=== PATIENT | female | born 1955 | race Caucasian/White ===

== ENCOUNTER 2023-03-07 09:05 | Outpatient (OUT) | payer MEDICARE, OTHER, SELFPAY ==
--- NOTE | 2023-03-07 09:23 | XR_ITS ---
[address] [address] Patient Name: JACKY COOPER MRN: [id number] date: 1955 Sex: F Assigned Patient Location: [facility] Current Patient Location: [facility] Accession/Order Number: [id number] Exam Date: 03/07/2023 09:40 Report Date: 03/07/2023 10:38 At the request of: NON-STAFF PHYSICIAN Procedure: XR DEXA axial skeleton EXAMINATION: XR DEXA axial skeleton HISTORY: Primary Ovarian Failure E28.39 COMPARISON: No relevant comparison available. TECHNIQUE: Dual-energy X-ray absorptiometry (DXA) was performed. FINDINGS: SPINE ANALYSIS: Average bone mineral density is 1.260 g/cm2. T-score (standard deviation relative to young adult mean): 0.7 . HIP ANALYSIS: Lowest bone mineral density is within the left femoral neck, 0.821 g/cm2. T-score (standard deviation relative to young adult mean): -1.6 . XR/XR DEXA axial skeleton IMPRESSION: [employer] Classification: Osteopenia - Moderate Fracture Risk Electronically authenticated by: LACEY SEVERINO Date: 03/07/2023 10:38
--- NOTE | 2023-03-07 09:24 | MM_ITS ---
Patient Name: JACKY COOPER MR#: [id number] : 1955 Exam Date: 03/07/2023 Ordering Doctor: Non-Staff Physician RADIOLOGY REPORT PROCEDURE: MM TOMOSYNTHESIS SCREENING BI COMPARISON: MG MAMM SCREEN 3D ANAMARIA CAD, 03/04/2022. MG MAMM SCREEN ANAMARIA W CAD, 01/19/2018. MG MAMM ANAMARIA SCRN W CAD DIG, 10/06/2012. INDICATIONS: Screening Calculator Name NCI Breast Cancer Risk Assessment Tool 5 Year Breast Cancer Risk 1.30% Lifetime Breast Cancer Risk 4.60% Personal Breast Cancer No Personal Ovarian Cancer No Treatments resection and chemotherapy Family Cancers Sister with pancreas cancer at age 58; Father with postate cancer at age 74. LOCATION: [facility] BREAST COMPOSITION: Heterogeneously dense,which may obscure small masses. FINDINGS: DIAGNOSTIC CATEGORY 1--NEGATIVE. RIGHT BREAST: No significant suspicious finding. No significant change has occurred. LEFT BREAST: No significant suspicious finding. No significant change has occurred. RECOMMENDATIONS: ROUTINE MAMMOGRAM AND CLINICAL EVALUATION IN 12 MONTHS. PLEASE NOTE: A NORMAL MAMMOGRAM DOES NOT EXCLUDE THE POSSIBILITY OF BREAST CANCER. A CLINICALLY SUSPICIOUS PALPABLE LUMP SHOULD BE BIOPSIED. Dictated by: Ignacio Hanson M.D. on 03/07/2023 at 14:32 Approved by: Ignacio Hanson M.D. on 03/07/2023 at 14:40
== END 2023-03-07 09:06 | disposition home or self-care (01) ==
LOC: MAMMO 09:05
DX: Z12.31 Encounter for screening mammogram for malignant neoplasm of breast (principal); E28.39 Other primary ovarian failure; Z80.8 Family history of malignant neoplasm of other organs or systems; Z80.42 Family history of malignant neoplasm of prostate; M85.80 Other specified disorders of bone density and structure, unspecified site
CPT/HCPCS: 77063; 77067; 77080

== ENCOUNTER 2025-03-11 14:31 | Outpatient (OUT) | payer MEDICARE, OTHER, SELFPAY ==
--- NOTE | 2025-03-11 | MM_ITS ---
Patient Name: JACKY COOPER MR#: [id number] : 1955 Exam Date: 03/11/2025 Ordering Doctor: GRETEL ANDERSON RADIOLOGY REPORT PROCEDURE: MM TOMOSYNTHESIS SCREENING BI COMPARISON: MM TOMOSYNTHESIS SCREENING BI, 03/07/2023. MG MAMM SCREEN 3D ANAMARIA CAD, 03/04/2022. MG MAMM SCREEN ANAMARIA W CAD, 01/19/2018. MG MAMM ANAMARIA SCRN W CAD DIG, 10/06/2012. INDICATIONS: Screening Mammogram Calculator Name NCI Breast Cancer Risk Assessment Tool 5 Year Breast Cancer Risk 1.40% Lifetime Breast Cancer Risk 4.20% Personal Breast Cancer No Personal Ovarian Cancer No Treatments resection and chemotherapy Family Cancers Sister with pancreas cancer at age 58; Father with postate cancer at age 74. LOCATION: [facility] BREAST COMPOSITION: There are scattered areas of fibroglandular density. FINDINGS: DIAGNOSTIC CATEGORY 1--NEGATIVE. RIGHT BREAST: No significant suspicious finding. LEFT BREAST: No significant suspicious finding. RECOMMENDATIONS: ROUTINE MAMMOGRAM AND CLINICAL EVALUATION IN 12 MONTHS. Dictated by: Ruslan Brown DO on 03/11/2025 at 16:19 Approved by: Ruslan Brown DO on 03/11/2025 at 16:23
--- OUTSIDE RECORDS SUMMARY | 2025-03-11 14:34 | XMS_ITS | Continuity of Care Document ---
Author Organization [facility] Address [address] [place] [id number] Phone [phone] Care Team Providers Care Film Inspector Name Role Phone Charisma Shi MD Care Team Information Edi Developer + [phone]
--- OUTSIDE RECORDS SUMMARY | 2025-03-11 14:35 | XMS_ITS ---
Author Organization [facility] Address [address], [address] [place] [address] Care Team Providers Care Registered Nurse Cardiovascular Icu Name Role Phone Stacia Stratton APRN - CHORE WORKER Primary Care Provider + Active Problems ProblemNoted DateDiagnosed DatePAF (paroxysmal atrial fibrillation)04/04/2023 Primary jvpemlsihgdn57/18/7061Njqkulmdleol83/18/2023Obesity, Class II, BMI 35-39.9106/05/2022OVID-1913Paroxysmal ovwmuvlldyy95/17/2023Syncope 04/03/2023History of colon jqegoj8711/08/2019Liver cyst07/25/2019Splenic vein /08/2020Encounter for care related to vascular access port12/25/2018 Malignant neoplasm of sigmoid colon12/22/2018 Current Treatment and Therapy Plans Iron Sucrose (VENOFER) 300 mg then 400 mg* Plan Start Date:09/13/2024 Plan Provider:Raymundo Luque MD Linked Problems Encounter for care related t o vascular access portMalignant neoplasm of sigmoid colon (HCC) Treatment Medications acetaminophen (TYLENOL)diphe nhydrAMINE (BENADRYL)famotidine (PEPCID)iron sucrose (VENOFER)ondansetron (ZOFRAN) Past Treatment and Therapy Plans No past plan information found.
--- OUTSIDE RECORDS SUMMARY | 2025-03-11 14:35 | XMS_ITS | Clinical Summary ---
Author Organization [facility] Address [address], [address] [place] [address] Care Team Providers Care Public Employment Mediator Name Role Phone Stacia Stratton TICKETER - ENGLISH FACULTY MEMBER Primary Care Provider + Allergies Active AllergyReactionsCriticalityNoted DateCommentsNo Known Vpzraktqd60/17/2023 Medications MedicationSigDispense QuantityRefillsLast FilledStart DateEnd DateStatus LORazepam (ATIVAN) 0.5 MG tablet Active aspirin 81 MG EC tablet Take by mouth01/11/2022ctive escitalopram (LEXAPRO) 10 MG tablet Take by mouth daily01/11/2022ctive prednisoLONE acetate (PRED FORTE) 1 % ophthalmic suspension Apply 1 drop to eye 2 times daily01/27/2024ctive atorvastatin (LIPITOR) 20 MG tablet Take 1 tablet by mouth at bedtime 90 tablet ctive apixaban (ELIQUIS) 5 MG TABS tablet Indications:Malignant neoplasm of sigmoid colon (HCC),Paroxysmal tachycardia (HCC)Take 1 tablet by mouth 2 times daily 180 tablet 5Active flecainide (TAMBOCOR) 100 MG tablet Indications:Paroxysmal atrial fibrillation (HCC),Chronic anticoagulation, Malignant neoplasm of sigmoid colon (HCC),Primary hypertension,Dyslipidemia,KEREN (obstructive sleep apnea),Goiter,Abnormal ECGTake 1 tablet by mouth 2 times daily 180 tablet 5Active budesonide (ENTOCORT EC) 3 MG delayed release capsule Take 3 capsules by mouth every qilbvdq84/22/2025Active hydroCHLOROthiazide 12.5 MG capsule Take 1 capsule by mouth daily5Active lisinopril (PRINIVIL;ZESTRIL) 20 MG tablet Take 1 tablet by mouth daily 90 tablet 5Active carvedilol (COREG) 6.25 MG tablet Take 1 tablet by mouth 2 times daily 180 tablet 5Active potassium chloride (KLOR-CON M) 20 MEQ extended release tablet Take 1 tablet by mouth daily 90 tablet 5Active Active Problems ProblemNoted DateDiagnosed DatePAF (paroxysmal atrial fibrillation)04/04/2023 Primary kvwxnvifeiyi29/18/9252Hlhtrhztjzqj21/18/2023Obesity, Class II, BMI 35-39.9106/05/2022OVID-1913Paroxysmal comhawbdarp03/17/2023Syncope 04/03/2023History of colon zkcine3411/08/2019Liver cyst07/25/2019Splenic vein qlyagrxrmc12/08/2020Encounter for care related to vascular access port12/25/2018 Malignant neoplasm of sigmoid colon12/22/2018 Encounters DateTypeDepartmentCare TfzgDaiodpoiyli56/23/2025 1:02 PM EDT - 01/08/2025 11:59 PM EDTHospital Encounter [address] [id number] Paroxysmal atrial fibrillation (HCC); Chronic anticoagulation; Primary hypertension; Dyslipidemia; KEREN (obstructive sleep apnea) Discharge Disposition: Home or Self Care01/08/2025Results Follow-Up [facility] Part [address] [address] Christa Salmeron APRN - ENGLISH FACULTY MEMBER 12/31/2024 2:00 PM EDTOffice Visit [facility] Part [address] [address] Shadi Loyd MD Paroxysmal atrial fibrillation (HCC) (Primary Dx); Chronic anticoagulation; Primary hypertension; Dyslipidemia; KEREN (obstructive sleep apnea)12/09/2024 11:51 AM EDT - 12/09/2024 1:42 PM EDT Emergency [facility] [address] [place] [address] Billy Chatman DO Hypertension, unspecified type (Primary Dx); Hypokalemia Discharge Disposition: Home or Self Care12/09/2024Travelfrom Last 3 Months Family History Medical HistoryRelationNameCommentsAtrial FibrillationBrotherHeart Disease BrotherHeart DiseaseFatherHeart DiseaseMotherRelationNameStatusCommentsBrother AliveDaughter 1AliveDaughter 2AliveFatherDeceasedMotherAliveSisterAliveSonAlive Social History Tobacco UseTypesPacks/DayYears UsedDateSmoking Tobacco: NeverSmokeless Tobacco: Never Tobacco Cessation:Counseling Given: No Alcohol UseStandard Drinks/WeekCommentsNot Currently0 (1 standard drink = 0.6 oz pure alcohol)[facility] UtilitiesAnswerDate RecordedIn the past 12 months has the [employer], gas, oil, or water [employer] threatened to shut off services in your home?No04/03/2023Hunger Vital SignAnswerDate RecordedWithin the past 12 months, you worried that your food would run out before you got the money to buymore. Never true04/03/2023Within the past 12 months, the food you bought just didn't last and you didn't have money to get more.Never true04/03/2023RAPARE - TransportationAnswerDate RecordedIn the past 12 months, has lack of transportation kept you from medical appointments or from getting medications?No 04/03/2023In the past 12 months, has lack of transportation kept you from meetings, work, or from getting things needed for daily living?No04/03/2023 Housing Stability Vital SignAnswerDate RecordedIn the last 12 months, was there a time when you were not able to pay the mortgage or rent on time?No04/03/2023In the last 12 months, how many places have you lived?In the last 12 months, was there a time when you did not have a steady place to sleep or slept in ashelter (including now)?No04/03/2023Interpersonal Safety ([facility] HRSN)Answer Date RecordedHow often does anyone, including family and friends, physically hurt you?How often does anyone, including family and friends, scream or curse at you?Not on file04/03/2023How often does anyone, including family and friends, insult or talk down to you?Not on file04/03/2023How often does anyone, including family and friends, threaten you with harm?Not on file04/03/2023Food InsecurityAnswerDate RecordedWithin the past 12 months, you worried that your food would run out before you got the money to buymore.Within the past 12 months, the food you bought just didn't last and you didn't have money to get more.Interpersonal Safety Domain Source: IP Abuse Screening AnswerDate RecordedRead-Only, Retired: Physical YowckOnxngq53/17/2023Read-Only, Retired: Verbal IflwaDgzfdy40/17/2023Read-Only, Retired: Emotional abuseDenies 04/03/2023Read-Only, Retired: Financial NmldwKpnqgx74/17/2023Read-Only, Retired: Sexual ibejlWyrsgk52/17/2023CommentsUnknownSex and Gender Information ValueDate RecordedSex Assigned at BirthNot on fileLegal YajMqsyvo50/13/2018 11:35 AM EDTGender IdentityNot on fileSexual OrientationNot on file Last Filed Vital Signs Vital SignReadingTime TakenCommentsBlood Ujxzzzwl757/8309 1:55 PM EDT Fbbja650712/31/2024 1:55 PM ZEIWhinjhodrjy80.2 ??C (99 ??F)12/09/2024 12:25 PM EDT Respiratory Ogaq5626 1:55 PM EDTOxygen Hkyvjrqtko05%12/31/2024 1:55 PM EDTInhaled Oxygen Concentration--Qkebjb70.1 kg (214 lb)12/31/2024 1:55 PM EDT Bvnyas853.1 cm (5' 5 )12/31/2024 1:55 PM EDTBody Mass Index35.6109 1:55 PM EDT Plan of Treatment DateTypeDepartmentCare Team (Latest Contact Info)Tmmzgvudfcy38/15/2025 11:20 AM ESTOffice Visit [facility] Part of [address] [address] Shadi Loyd MD [address] [facility] [place] [address] 6 month05/15/2025 1:15 PM ESTOffice Visit [facility] Part of [address] [address] Arpita Singh MD [address] [place], [place] [id number] follow upHealth MaintenanceDue DateLast DoneCommentsDepression Brspfj1304/14/1967 Hepatitis C amwovv5104/14/1973DTaP/Tdap/Td vaccine (1 - Tdap)1974Diabetes lnxdac7704/14/1990Breast cancer fpjapd9504/14/1995FIT/FOBT: Average risk2000 Fecal-DNA (Cologuard): Average risk2000Sigmoidoscopy/CT colonography 2000Shingles vaccine (1 of 2)2005DEXA (modify frequency per FRAX score)2010nnual Wellness Visit (Medicare)03/14/20232462Klgzaf33/12/2025 06/28/2023, 03/15/2022Flu vaccine (#1)5001/12/2023, 02/12/2022, 03/27/2021, Additional history existsCOVID-19 Vaccine ( - 2023- season) 2024GFR test (Diabetes, CKD 3-4, OR last GFR 15-59)/, 12/09/2024, 10/22/2024, Additional history qxuxcdGpyjytjzafg92/15/2028 10/30/2024, 01/15/2020, 01/15/2020Colorectal Cancer Bgbgqi1710/31/2027Respiratory Syncytial Virus (RSV) or age 60 yrs+ (1 - 1-dose 75+ series)2030 Pneumococcal 0-49 years CdsqghdIdbqyjnxndbo13/27/2023, 09/06/2014, 12/25/2009, Additional history existsPneumococcal 50+ years NwudqejLgmbhtnmv80/27/2023, 09/06/2014, 12/25/2009, Additional history existsHepatitis A vaccineAged OutNo longer eligible based on patient's age to complete this topicHepatitis B vaccine Aged OutNo longer eligible based on patient's age to complete this topicHib vaccineAged OutNo longer eligible based on patient's age to complete this topic Meningococcal (ACWY) vaccineAged OutNo longer eligible based on patient's age to complete this topicMeningococcal B vaccineAged OutNo longer eligible based on patient's age to complete this topicPolio vaccineAged OutNo longer eligible based on patient's age to complete this topic Procedures Procedure NamePriorityDate/TimeAssociated DiagnosisCommentsBASIC METABOLIC PANEL Hqvauwx6501/08/2025 1:02 PM EDT Paroxysmal atrial fibrillation (HCC) Chronic anticoagulation Primary hypertension Dyslipidemia KEREN (obstructive sleep apnea) CT HEAD WO MTKMPVQCEIYL08/24/2025 12:30 PM EDT IINRHZYVFWVCY69/24/2025 12:24 PM EDT AWYOCGEHDQLA42/24/2025 12:24 PM EDT COMPREHENSIVE METABOLIC ASYOMPFLY43/24/2025 12:24 PM EDT CBC WITH AUTO HTMEHKPGUBHUCADC48/24/2025 12:24 PM EDT XR CHEST UYCIVLASAXWS60/24/2025 12:22 PM EDT EKG 12-DHWGCIPR28/24/2025 12:22 PM EDT XWZUTJDMDLNXfzwdfi77/15/2025 10:59 AM EDTLIPID IMFTIXchyjhj28/03/2024 8:34 AM EDT from Last 3 Months or Most Recently Relevant to Health Maintenance Results * (ABNORMAL) Basic Metabolic Panel (01/08/2025 1:02 PM EDT)ComponentValueRef RangeTest MethodAnalysis TimePerformed AtPathologist YbqmnbeejFsutpz085355 - 145 mmol/L01/08/2025 1:02 PM [facility] LABPotassium4.0 3.7 - 5.3 mmol/L01/08/2025 1:02 PM [facility] LABChloride [address] - 107 mmol/L01/08/2025 1:02 PM [facility] MDKMV253 20 - 31 mmol/L01/08/2025 1:02 PM [facility] LABAnion Gap 129 - 16 mmol/L01/08/2025 1:02 PM [facility] LABGlucose 132(H)74 - 99 mg/dL01/08/2025 1:02 PM [facility] CGZSSE94 8 - 23 mg/dL01/08/2025 1:02 PM [facility] LABCreatinine 1.3(H)0.50 - 0.90 mg/dL01/08/2025 1:02 PM [facility] Est, Glom Filt Rate45(L)>60 mL/min/1.96m08401/08/2025 1:02 PM [facility] LABComment: ? These results are not intended for use in patients <18 years of age. ? eGFR results are calculated without a race factor using the 2020 CKD-EPI equation. Careful clinical correlation is recommended, particularly when comparing to results calculated using previous equations. The CKD-EPI equation is less accurate in patients with extremes of muscle mass, extra-renal metabolism of creatine, excessive creatine ingestion, or following therapy that affects renal tubular secretion. BUN/Creatinine Cnmtk046 - 1:02 PM [facility] LABCalcium9.28.6 - 10.4 mg/dL01/08/2025 1:02 PM [facility] LABSpecimen (Source)Anatomical Location / LateralityCollection Method / Volume Collection TimeReceived TimeBloodBLOOD SPECIMEN / Zlenchq8401/08/2025 1:02 PM EDT 01/08/2025 1:03 PM EDT Narrative Authorizing ProviderResult TypeResult StatusAli F O Ahmad MDCHEMISTRY ORDERABLES Final ResultPerforming OrganizationAddressCity/State/ZIP CodePhone Number [facility] [address] [place] [address], [facility] [phone] * CT Head W/O Contrast (12/09/2024 12:30 PM EDT)Anatomical RegionLaterality ModalityHeadComputed TomographySpecimen (Source)Anatomical Location / LateralityCollection Method / VolumeCollection TimeReceived Time12/09/2024 12:53 PM EDT Impressions 12/09/2024 12:54 PM EDT 1. ??No evidence of acute intracranial process. 2. ??Findings of presumed mild small vessel ischemic deep white matter disease. 3. ??Small amount of layering fluid within the right maxillary sinus could be a sign of mild acute sinusitis. Narrative 12/09/2024 12:54 PM EDT EXAM: CT Head Without Intravenous Contrast EXAM DATE/TIME: 12/09/2024 12:30 pm CLINICAL HISTORY: ORDERING SYSTEM PROVIDED HISTORY: HEAD PRESSURE, htn ??TECHNOLOGIST PROVIDED HISTORY: ??HEAD PRESSURE, htn ??Decision Support Exception - unselect if not a suspected or confirmed emergency medical condition->Emergency Medical Condition (MA) TECHNIQUE: Axial computed tomography images of the head/brain without intravenous contrast. ??This CT exam was performed using one or more of the following dose reduction techniques: ??automated exposure control, adjustment of the mA and/or kV according to patient size, and/or use of iterative reconstruction technique. COMPARISON: No relevant prior studies available. FINDINGS: Brain: ??No evidence of acute intracranial process. ??No acute ischemia. ??No mass or mass effect. ??No acute intracranial hemorrhage. ??Mild periventricular deep white matter hypodensity consistent with small vessel ischemic deep white matter disease. Ventricles: ??No acute findings. ??No ventriculomegaly. Bones/joints: ??No acute findings. ??No acute fracture. Soft tissues: ??No acute findings. Sinuses: ??Small amount of layering fluid within the right maxillary sinus could be a sign of mild acute sinusitis. Mastoid air cells: ??Unremarkable as visualized. ??No mastoid effusion. Procedure Note Jarred Wen MD - 12/09/2024 EXAM: CT Head Without Intravenous Contrast EXAM DATE/TIME: 12/09/2024 12:30 pm CLINICAL HISTORY: ORDERING SYSTEM PROVIDED HISTORY: HEAD PRESSURE, htn TECHNOLOGISTPROVIDED HISTORY: HEAD PRESSURE, htn Decision Support Exception - unselect if nota suspected or confirmed emergency medical condition->Emergency Medical Condition (MA) TECHNIQUE: Axial computed tomography images of the head/brain without intravenous contrast. This CT exam was performed using one or more of the followingdose reduction techniques: automated exposure control, adjustment of the mA and/or kV according to patient size, and/or use of iterativereconstruction technique. COMPARISON: No relevant prior studies available. FINDINGS: Brain: No evidence of acute intracranial process. No acute ischemia.No mass or mass effect. No acute intracranial hemorrhage. Mildperiventricular deep white matter hypodensity consistent with small vessel ischemic deep white matter disease. Ventricles: No acute findings. No ventriculomegaly. Bones/joints: No acute findings. No acute fracture. Soft tissues: No acute findings. Sinuses: Small amount of layering fluid within the right maxillarysinus could be a sign of mild acute sinusitis. Mastoid air cells: Unremarkable as visualized. No mastoid effusion. IMPRESSION: 1. No evidence of acute intracranial process. 2. Findings of presumed mild small vessel ischemic deep white matterdisease. 3. Small amount of layering fluid within the right maxillary sinus couldbe a sign of mild acute sinusitis. Authorizing ProviderResult TypeResult StatusStephen N Swade DOIMG CT ORDERABLES Final Result * (ABNORMAL) CBC with Auto Differential (12/09/2024 12:24 PM EDT)ComponentValue Ref RangeTest MethodAnalysis TimePerformed AtPathologist SignatureWBC7.43.5 - 11.3 k/uL12/09/2024 12:24 PM [facility] LABRBC4.433.95 - 5.11 m/uL12/09/2024 12:24 PM [facility] UCOEbucjhmuwl61.2 11.9 - 15.1 g/dL12/09/2024 12:24 PM [facility] Bkunufpmir37.836.3 - 47.1 %12/09/2024 12:24 PM [facility] JXVQHA14.182.6 - 102.9 fL12/09/2024 12:24 PM [facility] IZXRIH82.525.2 - 33.5 pg12/09/2024 12:24 PM [facility] ONCBFIZ07.228.4 - 34.8 g/dL12/09/2024 12:24 PM [facility] ZENUSU38.2(H)11.8 - 14.4 %12/09/2024 12:24 PM [facility] CTKSujrkchqk753672 - 453 k/uL12/09/2024 12:24 PM [facility] LABMPV8.88.1 - 13.5 MS12/09/2024 12:24 PM [facility] LABNRBC Automated0.00.0 per 100 WBC12/09/2024 12:24 PM [facility] LABNeutrophils %6536 - 65 %12/09/2024 12:24 PM [facility] LABLymphocytes %2524 - 43 %12/09/2024 12:24 PM [facility] LABMonocytes %63 - 12 %12/09/2024 12:24 PM [facility] LABEosinophils %21 - 4 %12/09/2024 12:24 PM [facility] LABBasophils %10 - 2 %12/09/2024 12:24 PM [facility] LABImmature Granulocytes %1(H)0 %12/09/2024 12:24 PM [facility] LABNeutrophils Absolute4.911.50 - 8.10 k/uL 12/09/2024 12:24 PM [facility] LABLymphocytes Absolute 1.831.10 - 3.70 k/uL12/09/2024 12:24 PM [facility] Monocytes Absolute0.440.10 - 1.20 k/uL12/09/2024 12:24 PM [facility] LABEosinophils Absolute0.130.00 - 0.44 k/uL12/09/2024 12:24 PM [facility] LABBasophils Absolute0.040.00 - 0.20 k/uL 12/09/2024 12:24 PM [facility] LABImmature Granulocytes Absolute0.040.00 - 0.30 k/12/09/2024 12:24 PM [facility] LABSpecimen (Source)Anatomical Location / LateralityCollection Method / VolumeCollection TimeReceived TimeBloodBLOOD SPECIMEN / Anqchrj3212/09/2024 12:24 PM EDT12/09/2024 12:28 PM EDT Narrative Authorizing ProviderResult TypeResult StatusStephen [facility] DOHEMATOLOGY ORDERABLESFinal ResultPerforming OrganizationAddressCity/State/ZIP CodePhone Number [facility] [address] [place] [address] * Troponin (12/09/2024 12:24 PM EDT)ComponentValueRef RangeTest MethodAnalysis TimePerformed AtPathologist SignatureTroponin, High Nppnligwvio165 - 14 ng/L 12/09/2024 12:24 PM [facility] LABComment:High Sensitivity Troponin values cannot be compared with other Troponin methodologies.Specimen (Source)Anatomical Location / LateralityCollection Method / VolumeCollection TimeReceived TimeBloodBLOOD SPECIMEN / Unknown 12/09/2024 12:24 PM EDT12/09/2024 12:28 PM EDT Narrative Authorizing ProviderResult TypeResult StatusStephen N Swade DOCHEMISTRY ORDERABLESFinal ResultPerforming OrganizationAddressCity/State/ZIP CodePhone Number [facility] [address] [place] [address], [facility] [phone] * Magnesium (12/09/2024 12:24 PM EDT)ComponentValueRef RangeTest MethodAnalysis TimePerformed AtPathologist SignatureMagnesium2.11.6 - 2.4 mg/dL12/09/2024 12:24 PM [facility] LABSpecimen (Source)Anatomical Location / LateralityCollection Method / VolumeCollection TimeReceived Time BloodBLOOD SPECIMEN / Yhpfbrc5312/09/2024 12:24 PM EDT12/09/2024 12:28 PM EDT Narrative Authorizing ProviderResult TypeResult StatusStephen N Swade DOCHEMISTRY ORDERABLESFinal ResultPerforming OrganizationAddressCity/State/ZIP CodePhone Number [facility] [address] [phone] * (ABNORMAL) CMP (12/09/2024 12:24 PM EDT)ComponentValueRef RangeTest Method Analysis TimePerformed AtPathologist QgjwyuueoMjigqn134672 - 145 mmol/L 12/09/2024 12:24 PM [facility] LABPotassium3.3(L)3.7 - 5.3 mmol/L12/09/2024 12:24 PM [facility] CFQWgcncdav77916 - 107 mmol/L12/09/2024 12:24 PM [facility] WBWYO12400 - 31 mmol/L12/09/2024 12:24 PM [facility] LABAnion Yno237 - 16 mmol/L12/09/2024 12:24 PM [facility] NZZXblslga110(H) 74 - 99 mg/dL12/09/2024 12:24 PM [facility] IBJEED684 - 23 mg/dL12/09/2024 12:24 PM [facility] LABCreatinine1.0 (H)0.50 - 0.90 mg/dL12/09/2024 12:24 PM [facility] Est, Glom Filt Rate64>60 mL/min/1.32d48712/09/2024 12:24 PM [facility] LABComment: ? These results are not intended for use in patients <18 years of age. ? eGFR results are calculated without a race factor using the 2020 CKD-EPI equation. Careful clinical correlation is recommended, particularly when comparing to results calculated using previous equations. The CKD-EPI equation is less accurate in patients with extremes of muscle mass, extra-renal metabolism of creatine, excessive creatine ingestion, or following therapy that affects renal tubular secretion. BUN/Creatinine Amapc079 - 12:24 PM [facility] LABCalcium8.5(L)8.6 - 10.4 mg/dL12/09/2024 12:24 PM [facility] LABTotal Protein6.76.6 - 8.7 g/dL12/09/2024 12:24 PM [facility] LABAlbumin4.03.5 - 5.2 g/dL12/09/2024 12:24 PM [facility] LABAlbumin/Globulin Ratio1.51.0 - 2.5012/09/2024 12:24 PM EDT [facility] LABTotal Bilirubin0.90.00 - 1.20 mg/dL12/09/2024 12:24 PM [facility] LABAlkaline Dontijcmoro05864 - 104 U/L 12/09/2024 12:24 PM [facility] BCDFKV6014 - 35 U/L 12/09/2024 12:24 PM [facility] HFTHYH8043 - 35 U/L 12/09/2024 12:24 PM [facility] LABSpecimen (Source) Anatomical Location / LateralityCollection Method / VolumeCollection Time Received TimeBloodBLOOD SPECIMEN / Krvsfaw2512/09/2024 12:24 PM EDT12/09/2024 12:28 PM EDT Narrative Authorizing ProviderResult TypeResult StatusStephen N Corneliusade DOCHEMISTRY ORDERABLESFinal ResultPerforming OrganizationAddressCity/State/ZIP CodePhone Number [facility] [address] [place] [address], [facility] [phone] * XR CHEST PORTABLE (12/09/2024 12:22 PM EDT)Anatomical RegionLateralityModality ChestComputed RadiographySpecimen (Source)Anatomical Location / Laterality Collection Method / VolumeCollection TimeReceived Time12/09/2024 12:35 PM EDT Impressions 12/09/2024 12:36 PM EDT 1. No acute process. Narrative 12/09/2024 12:36 PM EDT EXAM: 1 VIEW XRAY OF THE CHEST 12/09/2024 12:22:34 PM COMPARISON: 04/03/2023 CLINICAL HISTORY: Chest Pain. FINDINGS: LUNGS AND PLEURA: No focal pulmonary opacity. No pulmonary edema. No pleural effusion. No pneumothorax. HEART AND MEDIASTINUM: No acute abnormality of the cardiac and mediastinal silhouettes. BONES AND SOFT TISSUES: No acute osseous abnormality. Procedure Note Dale Darnell MD - 12/09/2024 EXAM: 1 VIEW XRAY OF THE CHEST 12/09/2024 12:22:34 PM COMPARISON: 04/03/2023 CLINICAL HISTORY: Chest Pain. FINDINGS: LUNGS AND PLEURA: No focal pulmonary opacity. No pulmonary edema. No pleural effusion. No pneumothorax. HEART AND MEDIASTINUM: No acute abnormality of the cardiac and mediastinal silhouettes. BONES AND SOFT TISSUES: No acute osseous abnormality. IMPRESSION: 1. No acute process. Authorizing ProviderResult TypeResult StatusStephen N [facility] DIAGNOSTIC IMAGING ORDERABLESFinal Result * EKG 12 Lead (12/09/2024 12:22 PM EDT)ComponentValueRef RangeTest Method Analysis TimePerformed AtPathologist SignatureVentricular Rkbx75UPDVNFQ [facility] RADIOLOGYAtrial Kzfi97YZFTNLJ [facility] RADIOLOGYP-R Nounziai846ygEBWJ [facility] QRS Bjjrsxih861ihVYQG [facility] RADIOLOGYQ-T Dlzbrvie938umKRSU [facility] RADIOLOGYQTc Calculation (Bazett)453msMHPN [facility] RADIOLOGYP Smhm31naobkgbFHEK [facility] RADIOLOGYR [place]-41degreesMHPN [facility] RADIOLOGYT Ndbl68ipjrylmLKKU [facility] RADIOLOGYSpecimen (Source)Anatomical Location / LateralityCollection Method / VolumeCollection TimeReceived Time12/09/2024 12:22 PM EDT Narrative [facility] - 12/10/2024 12:58 PM EDT Sinus bradycardia with 1st degree A-V block Left axis deviation Pulmonary disease pattern Minimal voltage criteria for LVH, may be normal variant ( Mickey product ) Abnormal ECG ECG not diagnostic for Acute Coronary Syndrome; consider clinical findings When compared with ECG of 03-Apr-2023 03:47, Sinus rhythm has replaced Atrial fibrillation Confirmed by Ignacio Concepcion ([id number]) on 12/10/2024 12:58:18 PM Procedure Note Ignacio Concepcion MD - 12/10/2024 Sinus bradycardia with 1st degree A-V block Left axis deviation Pulmonary disease pattern Minimal voltage criteria for LVH, may be normal variant ( Mickey product) Abnormal ECG ECG not diagnostic for Acute Coronary Syndrome; consider clinicalfindings When compared with ECG of 03-Apr-2023 03:47, Sinus rhythm has replaced Atrial fibrillation Confirmed by Ignacio Concepcion ([id number]) on 12/10/2024 12:58:18 PM Authorizing ProviderResult TypeResult StatusStepsavannah Chatman DOEC ORDERABLES Final ResultPerforming OrganizationAddressCity/State/ZIP CodePhone Number [facility] * Colonoscopy (10/30/2024 10:59 AM EDT) Narrative Authorizing ProviderResult TypeResult StatusSyed Kaia Harding MDGENEDIANA SURGICAL HISTORYFinal Result * Lipid Panel (06/28/2023 8:34 AM EDT)ComponentValueRef RangeTest MethodAnalysis TimePerformed AtPathologist UfsbwsknvDjetdckswkl4861 - 199 mg/dL06/28/2023 8:34 AM EDTMERCY LABORATORIESComment: Cholesterol Guidelines: <200 Desirable 200-240 ??Borderline >240 Undesirable HDL50>40 mg/dL06/28/2023 8:34 AM EDTMERCY LABORATORIESComment: HDL Guidelines: <40 Undesirable 40-59 ?Borderline >59 Desirable LDL Juirdpzgjmq954 - 100 mg/dL06/28/2023 8:34 AM EDTMERCY LABORATORIESComment: LDL Guidelines: <100 Desirable 100-129 ?? Near to/above Desirable 130-159 ?? Borderline >159 Undesirable Direct (measured) LDL and calculated LDL are not interchangeable tests. Chol/HDL Ratio3. 8:34 AM EDTMERCY NYNYGYSYGIAHLkglwbfvyapka708<150 mg/dL06/28/2023 8:34 AM EDTMERCY LABORATORIESComment: Triglyceride Guidelines: <150 Desirable 150-199 ??Borderline 200-499 ??High >499 Very high Based on AHA Guidelines for fasting triglyceride, January 2012. SYWK26ex/dL06/28/2023 8:34 AM EDTMERCY LABORATORIESSpecimen (Source)Anatomical Location / LateralityCollection Method / VolumeCollection TimeReceived Time 06/28/2023 8:34 AM EDT06/28/2023 8:35 AM EDT Narrative Authorizing ProviderResult TypeResult StatusTammy Viral TICKETER - CNPCHEMISTRY ORDERABLESFinal ResultPerforming OrganizationAddressCity/State/ZIP CodePhone Number [facility] [address] [place] [address], [facility] [phone] [facility] [address] [place], [place] [address] [phone] from Last 3 Months or Most Recently Relevant to Health Maintenance Insurance Advance Directives * Full Code (Latest Code Status on File) Date ActivatedDate MxhbelagmieRmhyltse89/17/2023 8:51 AM04/04/2023 6:13 PM * Full Code Date ActivatedDate InactivatedComments12/26/2018 10:53 AM12/26/2018 1:56 PM NameRelationshipHealthcare Agent RelationshipCommunicationRebecca LuanMariya Primary Decision Maker* * * Care Teams Team MemberRelationshipSpecialtyStart DateEnd Date Stacia Stratton APRN - [employer] [address] [place] [id number] PCP - GeneralNurse Practitioner, [facility]06/28/23
--- OUTSIDE RECORDS SUMMARY | 2025-03-11 14:42 | XMS_ITS | CCD ---
Author Organization [facility] Care Team Providers Care Sliver Cutter Name Role Phone Gilma Her Primary Care Provider GILMA HER Primary Care Unavailable DUY GONZALEZ Referring Unavailable Asif Marr MD Primary Care Provider Gilma HER Primary Care Physician [phone] DR GILMA HER Attending Unavailable ARDEN, DR GILMA Kaye Admitting Unavailable SHAGELUK, DR KELSIE Zepeda Consulting Unavailable ARDEN, DR GILMA Kaye Consulting Unavailable Gilma Her MD Primary Care Provider Gilma Her Primary Care Provider Gilma Her MD Primary Care Provider Gilma Her MD Primary Care Provider Viral GENERAL PURCHASING AGENT - RACQUET MAKER, Stacia Primary Care Provider Viral GENERAL PURCHASING AGENT.RACQUET MAKER, Stacia Primary Care Provider [phone] Stacia Anderson Primary Care Physician Shadi Loyd MD Unavailable Reji Richardson MD Unavailable Viral GENERAL PURCHASING AGENT - RACQUET MAKER, Stacia Primary Care Provider Stacia Anderson LNancy Attending Unavailable Viral, Stacia LNancy Admitting Unavailable Viral GENERAL PURCHASING AGENT - RACQUET MAKER, Stacia Primary Care Provider MISSY ARENASEBGigi Attending Unavailable LUDIVINA PHOEBE Referring Unavailable VIRAL, STACIA Primary Care Unavailable MISSY ARENASEBE Attending Unavailable VIRAL, STACIA Primary Care Unavailable REJI RICHARDSON Attending Unavailable SHADI LOYD Referring Unavailable VRIAL, STACIA Primary Care Unavailable SROUBEK, REJI Referring Unavailable VIRAL, STACIA Primary Care Unavailable LUDIVINA, PHOEBE Attending Unavailable LUDIVINA, PHOEBE Referring Unavailable VIRAL, STACIA Primary Care Unavailable LUDIVINA, PHOEBE Attending Unavailable LUDIVINA, PHOEBE Referring Unavailable VIRAL, STCAIA Primary Care Unavailable ANGELA, MILTON Attending Unavailable ANGELA, MILTON Referring Unavailable VIRAL, STACIA Primary Care Unavailable GOSWAN HERNANDES M Referring Unavailable VIRAL, STACIA Primary Care Unavailable GOSHEALMAWAN M Referring Unavailable VIRAL, STACIA Primary Care Unavailable GOSHEWAN M Attending Unavailable SELF Referring Unavailable VIRAL, STACIA Primary Care Unavailable Viral, Stacia L. Attending Unavailable Mary Garcia Attending Unavailable Mary Garcia Attending Unavailable Mary Garcia Admitting Unavailable GaleaKemi Referring Unavailable Galea, Kemi Kaye Attending Unavailable GaleaKemi Admitting Unavailable Maite Moran MD Attending Provider Viral LABORATORY DIRECTOR-C, Stacia L Primary Care Provider [phone] Meaghan RODRIGUEZ, Thai Wilburn Attending Unavailab le Viral GENERAL PURCHASING AGENT-RACQUET MAKER, Stacia Kaylyn Primary Care Unav ailable [facility] Consulting Unavailable Thai Harding MD Attending Unavailab le Viral GENERAL PURCHASING AGENT-RACQUET MAKER, Stacia Kaylyn Primary Care Unav ailable Barraza GENERAL PURCHASING AGENT-RACQUET MAKER, Lea Moses Attending Unavaila ble Viral GENERAL PURCHASING AGENT-RACQUET MAKER, Stacia Kaylyn Primary Care Unav ailable Viral GENERAL PURCHASING AGENT-RACQUET MAKER, Stacia Kaylyn Primary Care Unav ailable Keyshawn Salinas MD Attending Unavailable Viral GENERAL PURCHASING AGENT-RACQUET MAKER, Stacia Kaylyn Primary Care Unav ailable Thai Harding MD Attending Unavailab Raymundo Post MD Referring Unava ilable Barraza GENERAL PURCHASING AGENT-RACQUET MAKER, Lea Moses Attending Unavaila ble Viral GENERAL PURCHASING AGENT-RACQUET MAKER, Stacia Kaylyn Primary Care Unav ailable Viral, Stacia L Primary Care Unavailable Maite Moran Attending Unavail able Maite Moran Admitting Unavail able VIRAL, STACIA Primary Care Unavailable AHMAD, ALI F O Referring Unavailable AL-BALAJI, ADNAN R Referring Unavailable VIRAL, STACIA Primary Care Unavailable VIRAL, STACIA Primary Care Unavailable AL-BALAJI, ADNAN R Referring Unavailable BILLY CHATMAN Gio Attending Unavailable VIRAL, STACIA Primary Care Unavailable VIRAL, STACIA Primary Care Unavailable AL-BALAJI, ADNAN R Referring Unavailable VIRAL, STACIA Primary Care Unavailable AL-BALAJI, ADNAN R Referring Unavailable VIRAL, STACIA Primary Care Unavailable AHMAD, ALI F O Referring Unavailable AHMAD, ALI F O Attending Unavailable VIRAL, STACIA Primary Care Unavailable AL-BALAJI, ADNAN R Referring Unavailable VIRAL, STACIA Primary Care Unavailable AL-BALAJI, ADNAN R Referring Unavailable Viral, MSN, GENERAL PURCHASING AGENT-RACQUET MAKER Stacia Moses. Attending U navailable Galea, Kemi J Admitting Unavailable Galea, Kemi J Attending Unavailable Galea, Kemi J Referring Unavailable NKANSAH-AMANKRA, MAITE Admitting Unavail able NKANSAH-AMANKRA, MAITE Attending Unavail able NKANSAH-AMANKRA, MAITE Referring Unavail able Galea, Kmei J Admitting Unavailable Galea, Kemi J Attending Unavailable Galea, Kemi J Attending Unavailable NKANSAH-AMANKRA, MAITE Attending Unavail able NKANSAH-AMANKRA, MAITE Referring Unavail able NKANSAH-AMANKRA, MAITE Attending Unavail able NKANSAH-AMANKRA, MAITE Attending Unavail able Viral, MSN, GENERAL PURCHASING AGENT-RACQUET MAKER Stacia L. Attending U navailable Viral, MSN, GENERAL PURCHASING AGENT-RACQUET MAKER Stacia L. Attending U navailable Viral, MSN, GENERAL PURCHASING AGENT-RACQUET MAKER Stacia L. Attending U navailable Viral, MSN, GENERAL PURCHASING AGENT-RACQUET MAKER Stacia L. Attending U navailable Viral, MSN, GENERAL PURCHASING AGENT-RACQUET MAKER Stacia Moses. Attending U navailable Ivral, Stacia L. Attending Unavailable Viral, Stacia L. Attending Unavailable Viral, Stacia L. Attending Unavailable Viral, Stacia L. Attending Unavailable Viral, Stacia L. Attending Unavailable Viral, Stacia L. Attending Unavailable Viral, Stacia L. Admitting Unavailable Viral, Stacia L. Attending Unavailable Viral, Stacia L. Attending Unavailable Kemi Raya Admitting Unavailable Kemi Raya Attending Unavailable Kemi Raya Attending Unavailable Mary Garcia Referring Unavailable Allergies Allergy ClassificationReported Allergen(s)Allergy TypeDate of OnsetReaction(s) Facility (6 sources)No Known Medication Allergies; Translations: [No Known Medication Allergies]Propensity to adverse reactions (disorder)[facility] Repository Medications Current Medications MedicationDrug Class(es)DatesSig (Normalized)Sig (Original)apixaban 5 mg oral tablet (20 sources)Factor Xa InhibitorStart: 61-83-2817pnbc 1 tablet by mouth once dailyApixaban (Eliquis) 5 mg tablet Active 5 MG PO Daily December 05, 2024 12:00am Complies with drug therapyStart: 59-17-6820Okmryqe 5 mg oral tablet 180 EA, 0 Refill(s), TAKE 1 TABLET BY MOUTH TWICE A DAY, Refills(s) 0 Start Date: 01/13/24 Status: Ordered Repeat number: 1aspirin 81 mg delayed release oral tablet (20 sources)Platelet Aggregation Inhibitor, Nonsteroidal Anti-inflammatory Drug Start: 73-42-8692qwnw 1 tablet by mouth once dailyaspirin 81 mg Oral EC Tab 81 mg = 1 tab(s), Oral, Daily, # 30 tab(s), Refills(s) 11 Start Date: 01/11/22 Status: Ordered Quantity: 30.0 Unit: tab(s) Repeat number: 1Start: 01-06-2021 End: 28-02-1829jgkhvon chewable tablet 324 mgComment on above:Take 81 mg by mouth.atorvastatin 20 mg oral tablet (20 sources)HMG-CoA Reductase InhibitorStart: 28-57-0790mqrc 1 tablet by mouth once dailyatorvastatin 20 mg Tab 20 mg = 1 tab(s), Oral, Daily, # 90 tab(s), Refills(s) 3, Pharmacy: [facility]/pharmacy #[id number], 167.6, cm, 03/12/24 13:54:00 EST, Height/Length Dosing, 98.1, kg, 03/12/24 13:54:00 EST,Weight Dosing Start Date: 03/12/24 Status: Ordered Quantity: 90.0 Unit: tab(s) Repeat number: 4Comment on above:Take 20 mg by mouth.benoxinate hydrochloride 4 mg/ml / fluorescein sodium 3 mg/ml ophthalmic solution (18 sources)Diagnostic DyeStart: 10-25-2024 End: 86-73-7153lsrekejwmwk-benoxinate 0.3-0.4 % 1 drop (FLURESS)Start: 10-25-2024 End: drop, BOTH EYES, DIRECTED, Starting on Tue10/25/24 at 1400, Until Tue10/26/24 at 0159, Administer for applanation tonometry. In the event of a Fluress shortage, administer Tia-Fluor 1 drop intoboth eyes as directed for applanation tonometry, OPHT CLINIC MED ORDERSStart: 03-09-2024 End: 27-13-3243lsepmzwffqi-benoxinate 0.3-0.4 % 1 Drop (FLURESS)Start: 11-25-2023 End: 69-11-5134zrxvaeuqyao-benoxinate 0.3-0.4 % 1 Drop (FLURESS)Start: 11-08-2023 End: 15-03-8073fnmrpeobaoe-benoxinate 0.3-0.4 % 1 Drop (FLURESS)Start: 10-26-2023 End: 91-18-6452itnwrogzdcn-benoxinate 0.3-0.4 % 1 Drop (FLURESS)Start: 08-18-2023 End: 33-14-8420tonzjdndapz-benoxinate 0.3-0.4 % 1 Drop (FLURESS)Start: 03-17-2023 End: 30-64-9258vhicanlancb-benoxinate 0.25-0.4 % 1 Drop (FLURESS)Start: 02-17-2022 End: 54-58-3270ipuyjnsxjhn-benoxinate 0.25-0.4 % 1 Drop (FLURESS)Start: 02-15-2022 End: 79-62-0560ahbdgpwonmh-benoxinate 0.25-0.4 % 1 Drop (FLURESS)Start: 02-04-2022 End: 40-99-5042gpucbcyzjqp-benoxinate 0.25-0.4 % 1 Drop (FLURESS)Start: 01-05-2022 End: 33-62-8980aeiwtgfsgic-benoxinate 0.25-0.4 % 1 Drop (FLURESS)Start: 01-04-2022 End: 86-55-6223lxywsorjgyd-benoxinate 0.25-0.4 % 1 Drop (FLURESS)Start: 12-29-2021 End: 01-49-6253arqiowqwdmj-benoxinate 0.25-0.4 % 1 Drop (FLURESS)Start: 11-11-2021 End: 60-38-2503iiiirepbvib-benoxinate 0.25-0.4 % 1 Drop (FLURESS)betamethasone 0.0005 mg/mg topical ointment (20 sources)CorticosteroidStart: 13-59-8382Bbewdxoajwvmx Dipropionate 0.05 % ointment Active 1 APPLIC TOPICAL Twice daily December 05, 2024 12:00am Complies with drug therapyStart: 02-54-7717okbetmksfbhvw dipropionate topical 0.05% ointment 1 honorio, Topical, BID, 15 gm, Refill(s) 1, [facility]/pharmacy #[id number], 165, cm, 11/14/24 11:07:00 EDT, Height/Length Dosing, 97.7, kg, 11/14/24 11:07:00 EDT, We ight Dosing Start Date: 11/14/24 Status: Ordered Quantity: 15.0 Unit: g Repeat number: 2Comment on above:Apply to affected area. prnbudesonide 3 mg delayed release oral capsule (9 sources)CorticosteroidStart: 31-03-8103hmod 3 capsules by mouth once daily in the morningbudesonide 3 mg oral delayed release capsule 9 mg = 3 cap(s), Oral, qAM, Refills(s) 0 Start Date: 12/07/24 Status: Ordered Repeat number: 1calcium chloride 0.0014 meq/ml / potassium chloride 0.004 meq/ml / sodium chloride 0.103 meq/ml / sodium lactate 0.028 meq/ml injectable solution (1 source)Start: 82-64-2972yeqvlhgy ringers infusioncarvedilol 6.25 mg oral tablet (4 sources)alpha-Adrenergic Consuelo, beta-Adrenergic BlockerStart: 01-11-2025 take 1 mg by mouth twice dailycarvedilol 6.25 mg Tab mg tab(s), Oral, BID, Refills(s) 0 Start Date: 01/11/25 Status: Ordered Repeat number: 1Start: 54-95-2328oxip 1 tablet by mouth twice dailycarvedilol (COREG) 6.25 MG tablet Take 1 tablet by mouth 2 times daily 180 tablet 12/31/2024 Activedronedarone 400 mg oral tablet (1 source)AntiarrhythmicStart: 73-39-4874grce 1 tablet by mouth twice daily at mealtimedronedarone hcl (MULTAQ) 400 MG TABS Indications: Paroxysmal atrial fibrillation (HCC) , Abnormal ECG , Dyslipidemia , Primary hypertension , KEREN (obstructive sleep apnea) , Goiter , Chronic anticoagulation Take 1 tablet by mouth 2 times daily (with meals) 180 tablet 3 11/01/2023 Activeescitalopram 10 mg oral tablet (20 sources)Serotonin Reuptake InhibitorStart: 26-22-2041Njlpsbiopnxw Oxalate 10 mg tablet Active 15 MG PO Daily December 05, 2024 12:00am Complies with drug therapyStart: 89-00-6287psjo 1.5 tablets by mouth once dailyescitalopram 10 mg Tab See Instructions, TAKE 1.5 TABLETS BY MOUTH DAILY, # 135 tab(s), Refills(s) 4, Pharmacy: [facility]/pharmacy #[id number], 167.6, cm, 03/12/24 13:54:00 EST, Height/Length Dosing, 98.1, kg, 03/12/24 13:54:00 EST, Weight Dosing Start Date: 05/11/24 Status: Ordered Quantity: 135.0 Unit: tab(s)Repeat number: 5Start: 02-13-2024 take 1.5 tablets by mouth once dailyescitalopram 10 mg Tab See Instructions, TAKE 1.5 TABLETS BY MOUTH DAILY, # 135 tab(s), Refills(s) 0, Pharmacy: [facility] STORE [id number], 167.6, cm, 01/13/24 10:27:00 EDT, Height/Length Dosing, 96.9, kg, 01/12 10:27:00 EDT, Weight Dosing Start Date: 02/13/24 Status: OrderedStart: 94-15-7858idnlgkqijyoo 10 mg Tab 135 EA, 0 Refill(s), TAKE 1.5 TABLETS BY MOUTH DAILY, Refills(s) 0 Start Date: 01/13/24 Status: OrderedStart: 05-25-2023 End: 86-73-7610latfzaneigeo 10 mg Tab 15 mg = 1.5 tab(s), Oral, Daily, X 90 day(s), # 135 tab(s), Refills(s) 1, Pharmacy: [facility]/pharmacy #[id number], 165, cm, 06/29/23 11:20:00 EDT, Height/Length Dosing, 99.4, kg, 06/28/2410:20:00 EDT, Weight Dosing Start Date: 06/29/23 Stop Date: 12/26/23 Status: OrderedStart: 36-95-5661zvqtqwjnxzfb (LEXAPRO) 10 MG tablet Take by mouth daily 01/11/2022 ActiveComment on above:Take 10 mg by mouth once daily.flecainide acetate 100 mg oral tablet (20 sources)AntiarrhythmicStart: 25-72-3921zmmi 1 tablet by mouth every twelve hoursflecainide 100 mg Tab 100 mg = 1 tab(s), Oral, q12hr, Refills(s) 0 Start Date: 11/14/24 Status: Ordered Repeat number: 1Start: 65-88-5997lakw 1 tablet by mouth twice dailyflecainide (TAMBOCOR) 100 MG tablet Indications: Paroxysmal atrial fibrillation (HCC) , Chronic anticoagulation , Malignant neoplasm of sigmoid colon (HCC) , Primary hypertension , Dyslipidemia , KEREN(obstructive sleep apnea) , Goiter , Abnormal ECG Take 1 tablet by mouth 2 times daily 180 tablet ActiveStart: 05-10-0724lwkxuwieam 50 mg Tab 60 EA, 0 Refill(s), TAKE 1 TABLET BY MOUTH TWICE A DAY, Refills(s) 0 Start Date: 01/13/24 Status: Ordered Repeat number: 1fluorouracil (ADRUCIL) 4,680 mg in sodium chloride 0.9 % 250 mL chemo infusion (11 sources)Start: 06-19-2019 End: 78-02-3170lfvoqlscxfpd (ADRUCIL) 4,680 mg in sodium chloride 0.9 % 250 mL chemo infusionStart: 06-05-2019 End: 22-52-2127zopcchpjepme (ADRUCIL) 4,680 mg in sodium chloride 0.9 % 250 mL chemo infusionStart: 05-22-2019 End: 48-14-9677tpekdcxzwjig (ADRUCIL) 4,680 mg in sodium chloride 0.9 % 250 mL chemo infusionStart: 05-08-2019 End: 77-32-8641vkclphicuatc (ADRUCIL) 4,680 mg in sodium chloride 0.9 % 250 mL chemo infusionStart: 04-24-2019 End: 83-90-4364qvnejitnxvjd (ADRUCIL) 4,680 mg in sodium chloride 0.9 % 250 mL chemo infusionStart: 04-09-2019 End: 30-25-5697atgghhoqledq (ADRUCIL) 4,680 mg in sodium chloride 0.9 % 250 mL chemo infusionStart: 03-12-2019 End: 42-80-1687vgrycpabmiwj (ADRUCIL) 4,680 mg in sodium chloride 0.9 % 250 mL chemo infusionStart: 02-20-2019 End: 44-15-5320wvkxfponkpym (ADRUCIL) 4,680 mg in sodium chloride 0.9 % 250 mL chemo infusionStart: 02-06-2019 End: 15-70-8565lwlskxowhose (ADRUCIL) 4,680 mg in sodium chloride 0.9 % 250 mL chemo infusionStart: 01-16-2019 End: 51-53-3197nmmqqzdktoif (ADRUCIL) 4,680 mg in sodium chloride 0.9 % 250 mL chemo infusionStart: 01-02-2019 End: 30-37-7621latexubrevvc (ADRUCIL) 4,680 mg in sodium chloride 0.9 % 250 mL chemo infusiongabapentin 300 mg oral capsule (3 sources)Anti-epileptic AgentStart: 05-14-2020 End: 00-07-9599cvspempebm (NEURONTIN) 300 MG capsule Take 1 capsule by mouth 3 times daily for 180 days. Intended supply: 30 days 90 capsule 5 05/14/2020 Lusdko058 ml glucose 50 mg/ml injection (10 sources)Start: 86-53-3491cwzpidpa 5 % solutionStart: 06-05-2019 End: 90-66-0454ldkdolhd 5 % solutionStart: 05-08-2019 End: 22-47-7214vmjpdpbc 5 % solutionStart: 99-82-4981yjqpzzbz 5 % solutionStart: 24-91-2136zkanufws 5 % solutionStart: 03-12-2019 End: 64-85-7668fihjdcsj 5 % solutionStart: 02-20-2019 End: 55-34-6608xdetleyj 5 % solutionStart: 55-83-5849mxqvaucm 5 % solutionStart: 00-65-0188qocpsvrt 5 % solutionStart: 01-02-2019 End: 95-59-5965tsyxuemk 5 % solution3 ml heparin sodium, porcine 100 unt/ml prefilled syringe (14 sources)Unfractionated Heparin, Anti-coagulantStart: 12-20-2019 End: 07-35-3169asusheu flush 100 UNIT/ML injection 500 UnitsStart: 11-22-2019 End: 47-75-6360inqpqnl flush 100 UNIT/ML injection 500 UnitsStart: 07-19-2019 heparin flush 100 UNIT/ML injection 100 UnitsStart: 06-21-2019 End: 82-53-5856obpdvce flush 100 UNIT/ML injection 500 UnitsStart: 06-07-2019 End: 12-90-1995ghzeqag flush 100 UNIT/ML injection 500 UnitsStart: 05-24-2019 End: 12-47-3523opprymr flush 100 UNIT/ML injection 500 UnitsStart: 05-10-2019 End: 96-86-2365zdflsyg flush 100 UNIT/ML injection 500 UnitsStart: 04-26-2019 End: 04-52-3748lmqgerc flush 100 UNIT/ML injection 500 UnitsStart: 03-14-2019 End: 25-37-2165amqmycq flush 100 UNIT/ML injection 500 UnitsStart: 03-06-2019 End: 12-93-4787oytizuk flush 100 UNIT/ML injection 500 UnitsStart: 02-08-2019 End: 94-64-0945lqrebqh flush 100 UNIT/ML injection 500 UnitsStart: 01-30-2019 End: 79-84-7764uffrngw flush 100 UNIT/ML injection 500 UnitsStart: 01-04-2019 End: 99-18-9112wsyyurr flush 100 UNIT/ML injection 500 UnitsStart: 12-26-2018 End: 83-78-3434nawctqu flush 100 UNIT/ML injectionhydroCHLOROthiazide 12.5 mg oral capsule (2 sources)Thiazide DiureticStart: 41-12-9357dnqi 1 capsule by mouth once daily hydroCHLOROthiazide 12.5 MG capsule Take 1 capsule by mouth daily 12/28/2024 Activeiv contrast (will be provided with radiology test) (1 source)Start: 01-06-2022 End: 31-71-9517ol contrast (will be provided with radiology test) Indications: Optic disc edema , 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 No IV access, insert saline lock prior to the beginning of sedation, infusion, injec tion of imaging exam. Discontinue saline lock post exam. If Pt. has a central line or IVAD, may access for administration according to line specific nursing protocol. Once exam is complete flush lineand de-access according to line specific nursing protocol in the MR contrast administration guidelines link. 1 Each 0 01/06/2022 01/07/2022 ActiveComment on above:MRI Orbits Inject, intravenously, once for 1 dose. No IV access, insert saline lock prior to the beginning of sedation, infusion, injection of imaging exam. Discontinue saline lock post exam. If Pt. has a central line or IVAD, may access for administration according to line specific nursing protocol. Once exam is complete flush line and de-access according to line specific nursing protocol in theMR contrast administration guidelines link.lidocaine 25 mg/ml / prilocaine 25 mg/ml topical cream (20 sources)Antiarrhythmic, Amide Local AnestheticStart: 15-34-0288asqsjxtdq- prilocaine (EMLA) 2.5-2.5 % cream Apply topically to port site and cover with an occlusive dressing 1 hour before port use 1 Tube 2 12/26/2018 Activelisinopril 20 mg oral tablet (20 sources)Angiotensin Converting Enzyme InhibitorStart: 96-12-4362qshn 1 tablet by mouth once dailylisinopril 20 mg Tab 20 mg = 1 tab(s), Oral, Daily, # 90 tab(s), Refills(s) 0, Pharmacy: [facility]/pharmacy #[id number], 165, cm, 12/14/24 10:58:00 EDT, Height/Length Dosing, 97.2, kg, 12/14/24 10:58:00 EDT, Weight Dosing Start Date: 12/14/24 Status: Ordered Quantity: 90.0 Unit: tab(s) Repeat number: 1Start: 44-06-1235jqse 1 tablet by mouth once dailylisinopril 10 mg Tab 10 mg = 1 tab(s), Oral, Daily, # 90 tab(s), Refills(s) 0, other reason (Rx) Sta rt Date: 12/07/24 Status: Ordered Quantity: 90.0 Unit: tab(s) Repeat number: 1 Start: 2023 End: 16-58-4695zgou 1 tablet by mouth once dailylisinopril (PRINIVIL;ZESTRIL) 5 MG tablet Take 1 tablet by mouth daily 90 tablet 3 03/26/2024 ActiveLORazepam 0.5 mg oral tablet (20 sources)BenzodiazepineStart: 01-06-2021 End: 90-45-9564IMItsrhol (ATIVAN) injection 0.5 mgStart: 05-75-1079jyyc 1 tablet by mouth three times daily as needed for anxietyAtivan 0.5 mg Tab 0.5 mg = 1 tab(s), Oral, TID, PRN anxiety, duration 30 days, # 30 tab(s), Refills(s) 0, Pharmacy: [facility]/pharmacy #[id number], 167.6, cm, 07/10/24 11:01:00 EDT, Height/Length Dosing, 100.8, kg, 07/10/24 11:01:00 EDT, Weight Dosing Start Date: 07/10/24 Status: Ordered Quantity: 30.0 Unit: tab(s) Repeat number: 1 Indications: Generalized anxiety disorder;Comment on above:Take 1 tablet by mouth three times daily as needed.meclizine hydrochloride 12.5 mg oral tablet (14 sources)AntiemeticStart: 64-98-0496kppr 1 tablet by mouth three times daily as needed for dizzinessmeclizine 12.5 mg Tab 12.5 mg = 1 tab(s), Oral, TID, PRN for dizziness, # 30 tab(s), Refills(s) 0, Pharmacy: [facility]/pharmacy #[id number], 167.6, cm, 05/11/24 14:28:00 EST, Height/Length Dosing, 99.4, kg, 05/11/24 14:28:00 EST, Weight Dosing Start Date: 05/11/24 Status: Ordered Quantity: 30.0 Unit: tab(s) Repeat number: 1methylPREDNISolone 4 mg oral tablet (1 source)CorticosteroidStart: 04-12-2023 End: 10-71-0384wttoaoODNUVLHofulj (MEDROL, ALDO,) 4 MG tablet Take by mouth. 1 kit 0 04/12/2023 04/18/2023 Vzugoq74 hr metoprolol succinate 25 mg extended release oral tablet (20 sources)beta-Adrenergic BlockerStart: 15-17-3222tccw 1 tablet by mouth every hourmetoprolol succinate ER (TOPROL XL) 25 mg 24 hr tablet Take 1 tablet by mouth every afternoon. 12/28/2023 ActiveStart: 45-25-7232odoa 1 tablet by mouth once dailymetoprolol succinate 25 mg ER Tab 25 mg = 1 tab(s), Oral, Daily, Refills(s) 0 Start Date: 11/07/23 Status: Ordered Repeat number: 1 nirmatrelvir/ritonavir 300/100 (PAXLOVID) 20 x 150 MG & 10 x 100MG TBPK (1 source)Start: 76-05-7638grzvhdtblcko/ritonavir 300/100 (PAXLOVID) 20 x 150 MG & 10 x 100MG TBPK Take 3 tablets (two 150mg nirmatrelvir and one 100 mg ritonavir tablets) by mouth every 12 hours for 5 days. 30 tablet 0 04/05/2023 Activenitrofurantoin, macrocrystals 25 mg / nitrofurantoin, monohydrate 75 mg oral capsule (1 source)Nitrofuran AntibacterialStart: 11-08-2024 End: 59-63-3360gueb 1 capsule by mouth twice dailyMacrobid 100 mg Cap 100 mg = 1 cap(s), Oral, BID, X 7 day(s), # 14 cap(s), Refills(s) 0, Pharmacy: [facility]/pharmacy #[id number], 167.6, cm, 11/07/24 11:48:00 EDT, Height/Length Dosing, 98.8, kg, 11/07/24 11:48:00 EDT, Weight Dosing Start Date: 11/08/24 Stop Date: 11/15/24 Status: Ordered Quantity: 14.0 Unit: cap(s) Repeat number: 1ofloxacin 3 mg/ml ophthalmic solution (12 sources)Quinolone AntimicrobialStart: 96-43-4657tdey 1 drop(s) into the eye(s) four times dailyofloxacin (OCUFLOX) 0.3 % ophthalmic solution Use 1 Drop in the left eye four times daily. 5 mL 10/26/2023 Activeoseltamivir 75 mg oral capsule (2 sources)Neuraminidase InhibitorStart: 02-02-2019 End: 90-56-2814olnp 1 capsule by mouth once dailyoseltamivir (TAMIFLU) 75 MG capsule Take 1 capsule by mouth daily for 7 days 7 capsule 0 02/02/2019 02/09/2019 ActiveoxyCODONE hydrochloride 5 mg oral capsule (1 source)Opioid AgonistStart: 68-22-1121juqj 1 capsule by mouth every eight hours as needed for painPARoxetine hydrochloride 20 mg oral tablet (20 sources)Serotonin Reuptake InhibitorStart: 86-29-1779utqk 1 tablet by mouth once dailyPARoxetine (PAXIL) 20 MG tablet TAKE 1 TABLET BY MOUTH EVERY DAY 0 11/29/2018 Activephenazopyridine hydrochloride 100 mg oral tablet (1 source)Start: 08-05-0480rrhh 1 tablet by mouth three times daily as needed for painphenylephrine hydrochloride 25 mg/ml ophthalmic solution (20 sources)alpha-1 Adrenergic AgonistStart: 10-25-2024 End: 40-39-4931YDTEAPhhyyxrg 2.5 % 1 drop (AK-DILATE, MARY-SYNEPHRINE)Start: 10-25-2024 End: drop, BOTH EYES, DIRECTED, Starting on Tue10/25/24 at 1400, Until Tue10/26/24 at 0159, Administer for dilation PROTECT FROM LIGHT, OPHT CLINIC MED ORDERSStart: 03-09-2024 End: 31-06-6225CQDEUXditidyw 2.5 % 1 Drop (AK-DILATE, MARY-SYNEPHRINE)Start: 03-09-2024 End: Drop, BOTH EYES, DIRECTED, Starting on Tue03/09/24 at 1030, Until Tue03/09/24 at 2229, Administer for dilation PROTECT FROM LIGHT, OPHT CLINIC MED ORDERSStart: 01-27-2024 End: 39-87-9059TBBGQNtjaxuwl 2.5 % 1 Drop (AK-DILATE, MARY-SYNEPHRINE)Start: 01-27-2024 End: Drop, BOTH EYES, DIRECTED, Starting on Tue01/27/24 at 1000, Until Tue01/27/24 at 2159, Administer for dilation PROTECT FROM LIGHT, OPHT CLINIC MED ORDERSStart: 11-25-2023 End: 71-71-0168IDBVUXqutepcr 2.5 % 1 Drop (AK-DILATE, MARY-SYNEPHRINE)Start: 11-08-2023 End: 43-06-7200TLHZIZxlgjsli 2.5 % 1 Drop (AK-DILATE, MARY-SYNEPHRINE)Start: 10-26-2023 End: 29-26-6790RNKINFwaftigg 2.5 % 1 Drop (AK-DILATE, MARY-SYNEPHRINE)Start: 08-18-2023 End: 88-27-7385BOJTALqqgfmkm 2.5 % 1 Drop (AK-DILATE, MARY-SYNEPHRINE)Start: 03-17-2023 End: 19-93-5965WDYGMCyouovya 2.5 % 1 Drop (AK-DILATE, MARY-SYNEPHRINE)Start: 07-06-2022 End: 38-21-2903PSOZZBsrmwwen 2.5 % 1 Drop (AK-DILATE, MARY-SYNEPHRINE)Start: 02-17-2022 End: 52-62-1962XMRCWXmilrpap 2.5 % 1 Drop (AK-DILATE, MARY-SYNEPHRINE)Start: 02-15-2022 End: 33-30-8283GYCEFRjhyrikr 2.5 % 1 Drop (AK-DILATE, MARY-SYNEPHRINE)Start: 01-05-2022 End: 19-82-6694JGUDZYibakpdw 2.5 % 1 Drop (AK-DILATE, MARY-SYNEPHRINE)Start: 01-04-2022 End: 26-74-3172FESTFZsdwhsdo 2.5 % 1 Drop (AK-DILATE, MARY-SYNEPHRINE)Start: 12-29-2021 End: 56-74-1944IHIJBVyeweknm 2.5 % 1 Drop (AK-DILATE, MARY-SYNEPHRINE)Start: 11-11-2021 End: 49-16-9164DOYZBHjcyksdo 2.5 % 1 Drop (AK-DILATE, MARY-SYNEPHRINE) prednisoLONE acetate 10 mg/ml ophthalmic suspension (20 sources)CorticosteroidStart: 96-17-6791zfhfspjlCOUZ acetate (PRED FORTE) 1 % ophthalmic suspension Apply 1 drop to eye 2 times daily 01/27/2024 ActiveStart: 07-27-2023 End: 28-93-9872zrkhgwdaVIUV acetate (PRED FORTE) 1 % ophthalmic suspension Use 1 Drop in the left eye four times daily. 10 mL 10/26/2023 ActiveComment on above: Use 1 Drop in the left eye four times daily.prochlorperazine 10 mg oral tablet (20 sources)PhenothiazineStart: 12-79-0739kuix 1 tablet by mouth every six hours as needed for nauseaprochlorperazine (COMPAZINE) 10 MG tablet Take 1 tablet by mouth every 6 hours as needed (nausea) 80 tablet 1 04/16/2019 ActiveStart: 35-51-1010lcrv 1 tablet by mouth every eight hours as needed for nausea prochlorperazine (COMPAZINE) 10 MG tablet TAKE 1 TABLET BY MOUTH EVERY 8 HOURS NEEDED FOR HPIQUU00 tablet 1 02/14/2019 ActiveStart: 17-40-5490vgre 1 tablet by mouth every eight hours as needed for nauseaprochlorperazine (COMPAZINE) 10 MG tablet Take 1 tablet by mouth every 8 hours as needed (nausea) 80 tablet 1 12/22/2018 Activeproparacaine hydrochloride 5 mg/ml ophthalmic solution (20 sources)Local AnestheticStart: 10-25-2024 End: 63-83-8619juezfrzfjbba 0.5 % 1 drop (ALCAINE)Start: 03-09-2024 End: 23-02-0683hkwehrpnnmzq 0.5 % 1 Drop (ALCAINE)Start: 03-09-2024 End: Drop, BOTH EYES, DIRECTED, Starting on Tue03/09/24 at 1030, Until Tue03/09/24 at 2229, Administer for pneumo tonometry, tonopen tonometry, or pachymetry. In the event of a proparacaine shortage, administer tetracaine 0.5% ophthalmic drops 1 drop in both eyes as directed for pneumo tonometry, tonopen tonometry, or pachymetry, [facility] MED ORDERSStart: 01-27-2024 End: 29-00-4906xuaubploberi 0.5 % 1 Drop (ALCAINE)Start: 01-27-2024 End: Drop, BOTH EYES, DIRECTED, Starting on Tue01/27/24 at 1000, Until Tue01/27/24 at 2159, Administer for pneumo tonometry, tonopen tonometry, or pachymetry. In the event of a proparacaine shortage, administer tetracaine 0.5% ophthalmic drops 1 drop in the left eye as directed for pneumo tonometry, tonopen tonometry, or pachymetry, [facility] MED ORDERSStart: 11-25-2023 End: 70-68-0193voaybiooqbvi 0.5 % 1 Drop (ALCAINE)Start: 11-08-2023 End: 84-70-6220ctahbjcaojxd 0.5 % 1 Drop (ALCAINE)Start: 08-18-2023 End: 87-64-7985fbabemcqjhwo 0.5 % 1 Drop (ALCAINE)Start: 03-17-2023 End: 44-96-6910uqqbfvjgbfez 0.5 % 1 Drop (ALCAINE)Start: 07-06-2022 End: 98-96-1696ricvnweyssrv 0.5 % 1 Drop (ALCAINE)Start: 02-17-2022 End: 47-26-1940qwbclalyrvpx 0.5 % 1 Drop (ALCAINE)Start: 02-15-2022 End: 53-78-4207newxfzhmbwmy 0.5 % 1 Drop (ALCAINE)Start: 02-04-2022 End: 74-93-4216yzbhcifirmul 0.5 % 1 Drop (ALCAINE)Start: 01-05-2022 End: 15-84-9618zsthiytelodm 0.5 % 1 Drop (ALCAINE)Start: 01-04-2022 End: 94-15-2370dobohcmjrooa 0.5 % 1 Drop (ALCAINE)Start: 12-29-2021 End: 13-44-4604djelzbtnbpid 0.5 % 1 Drop (ALCAINE)Start: 11-11-2021 End: 97-01-4465fvmleubbtkol 0.5 % 1 Drop (ALCAINE)psyllium 3400 mg powder for oral suspension (20 sources)psyllium (KONSYL) 28.3 % PACK Take 1 packet by mouth as needed for Constipation 0 Julcgx24 ml sodium chloride 9 mg/ml injection (20 sources)Start: 10-11-2024 End: 88-74-5976dudf 100 mL intravenously every hour as needed, then take 20 mL intravenously every hour as needed5-250 mL/hr, IntraVENous, PRN, If patient receiving piggyback infusions and maintenance fluids are not ordered OR KVO fluids to protect IV site/ prevent frequent line interruptions/ long duration, Starting on Kyara 10/11/24 at 1101, For 18 hours, For piggyback infusion, administer at same rate as piggyback for a total of 25 mL. Enter 25 mL into dose field and piggyback rate into rate field of order.If piggyback is infusing at a rate less than 100 mL/hr, enter 25 mL into dose field and 100 mL/hr into rate field of order. For KVO fluids, enter rate of 20 mL/hr or less into rate field of order.Start: 09-27-2024 End: 32-63-4954kkoi 100 mL intravenously every hour as needed, then take 20 mL intravenously every hour as needed5-250 mL/hr, IntraVENous, PRN, If patient receiving piggyback infusions and maintenance fluids are not ordered OR KVO fluids to protect IV site/ prevent frequent line interruptions/ long duration, Starting on Kyara 09/27/24 at 1115, For 18 hours, For piggyback infusion, administer at same rate as piggyback for a total of 25 mL. Enter 25 mL into dose field and piggyback rate into rate field of order.If piggyback is infusing at a rate less than 100 mL/hr, enter 25 mL into dose field and 100 mL/hr into rate field of order. For KVO fluids, enter rate of 20 mL/hr or less into rate field of order.Start: 09-13-2024 End: 66-76-7861efik 100 mL intravenously every hour as needed, then take 20 mL intravenously every hour as needed5-250 mL/hr, IntraVENous, PRN, If patient receiving piggyback infusions and maintenance fluids are not ordered OR KVO fluids to protect IV site/ prevent frequent line interruptions/ long duration, Starting on Tue09/13/24 at 0909, For 18 hours, For piggyback infusion, administer at same rate as piggyback for a total of 25 mL. Enter 25 mL into dose field and piggyback rate into rate field of order.If piggyback is infusing at a rate less than 100 mL/hr, enter 25 mL into dose field and 100 mL/hr into rate field of order. For KVO fluids, enter rate of 20 mL/hr or less into rate field of order.Start: 09-13-2024 End: -40 mL, IntraVENous, PRN, Starting on Kyara 09/13/24 at 0909, Until Tue09/14/24 at 0308, Line Care, If following IV push medication, administer flush at same rate as the IV push. Flush volume is determined by type of infusion therapy being given. For non-viscous solutions use: Peripheral IV = 5 mL Midline or Central Line = 10 mL/lumen For viscous solutions (i.e. blood components, parenteral nutrition, contrast media, or after obtaining blood sample) use: Peripheral IV = 10 mL Midline or Central Line = 20 mL/lumenStart: 01-06-2021 End: .9 % sodium chloride bolusStart: 12-20-2019 End: 34-40-9859jcxzzp chloride flush 0.9 % injection 10 mLStart: 11-22-2019 End: 25-39-2484yldjkg chloride flush 0.9 % injection 10 mLStart: 10-25-2019 End: 63-02-4764ytqdmk chloride flush 0.9 % injection 10 mLStart: 07-19-2019 End: 67-48-3087gfbthj chloride flush 0.9 % injection 10 mLStart: 06-21-2019 End: 91-12-7524zlrewa chloride flush 0.9 % injection 10 mLStart: 06-19-2019 End: 11-42-5224yzexfu chloride flush 0.9 % injection 10 mLStart: 06-07-2019 End: 04-95-5431wbevjf chloride flush 0.9 % injection 10 mLStart: 06-05-2019 End: 36-79-8481uhoszj chloride flush 0.9 % injection 10 mLStart: 05-24-2019 End: 48-16-0244ikizjc chloride flush 0.9 % injection 10 mLStart: 05-22-2019 End: 05-22-20190.9 % sodium chloride infusionStart: 05-22-2019 End: 39-53-1839myxmmz chloride flush 0.9 % injection 10 mLStart: 05-10-2019 End: 34-46-3144wllhxt chloride flush 0.9 % injection 10 mLStart: 05-08-2019 End: 83-16-9608rdkscu chloride flush 0.9 % injection 10 mLStart: 04-26-2019 End: 48-59-5460eiuvpn chloride flush 0.9 % injection 10 mLStart: 04-24-2019 End: 40-28-4098mxhmiy chloride flush 0.9 % injection 10 mLStart: 04-09-2019 End: 38-51-1534cjnbkf chloride flush 0.9 % injection 10 mLStart: 03-14-2019 End: 05-41-2947hxycgo chloride flush 0.9 % injection 10 mLStart: 03-12-2019 End: 34-09-1296tabrnx chloride flush 0.9 % injection 10 mLStart: 03-06-2019 End: 59-43-5494wvwqzi chloride flush 0.9 % injection 10 mLStart: 02-20-2019 End: 67-14-9834jukjxe chloride flush 0.9 % injection 10 mLStart: 02-08-2019 End: 12-71-8614xohvsr chloride flush 0.9 % injection 10 mLStart: 02-06-2019 End: 20-13-0456ktkkyi chloride flush 0.9 % injection 10 mLStart: 01-30-2019 End: 67-07-7936uixitj chloride flush 0.9 % injection 10 mLStart: 01-16-2019 End: 31-91-8559ycfcsz chloride flush 0.9 % injection 10 mLStart: 01-04-2019 End: 94-85-7992dxodtf chloride flush 0.9 % injection 10 mLStart: 01-02-2019 End: 24-55-1081xhquky chloride flush 0.9 % injection 10 mLStart: .9 % sodium chloride infusionsulfamethoxazole 800 mg / trimethoprim 160 mg oral tablet (3 sources)Dihydrofolate Reductase Inhibitor Antibacterial, Sulfonamide AntimicrobialStart: 11-07-2024 End: 03-27-1561Nxwfeyu D.S. 800 mg-160 mg Tab 1 tab(s), Oral, BID for 7 day(s), 14 tab(s), Refill(s) 0, [facility]/pharmacy #[id number], 167.6, cm, 11/07/24 11:48:00 EDT, Height/Length Dosing, 98.8, kg, 11/07/24 11:48:00 EDT, Weight Dosing Start Date: 11/07/24 Stop Date: 11/14/24 Status: Ordered Quantity: 14.0 Unit: tab(s) Repeat number: 1Start: 06-11-2024 End: 63-17-5456Erjbftr D.S. 800 mg-160 mg Tab 1 tab(s), Oral, q12hr for 5 day(s), 10 tab(s), Refill(s) 0, [facility]/pharmacy #[id number], 167.6, cm, 06/11/24 11:26:00 EST, Height/Length Dosing, 101.8, kg, 06/11/24 11:26:00 EST, Weight Dosing Start Date: 06/11/24 Stop Date: 06/16/24 Status: Orderedtamsulosin hydrochloride 0.4 mg oral capsule (1 source)alpha-Adrenergic BlockerStart: 29-75-7563mpiw 1 capsule by mouth once dailytraMADol hydrochloride 50 mg oral tablet (3 sources)Opioid AgonistStart: 04-12-2023 End: 34-94-6779nfel 1 tablet by mouth every six hourstraMADOL 50 mg Tab 50 mg, Oral, q6hr, Refills(s) 0 Start Date: 04/14/23 Status: Orderedtropicamide 10 mg/ml ophthalmic solution (20 sources)AnticholinergicStart: 10-25-2024 End: 36-15-1782ezdnnnizlns 1 % 1 drop (MYDRIACYL)Start: 10-25-2024 End: drop, BOTH EYES, DIRECTED, Starting on Tue10/25/24 at 1400, Until Tue10/26/24 at 0159, Administer for dilation, [facility]DERSStart: 03-09-2024 End: 23-34-7852vijoyqofavd 1 % 1 Drop (MYDRIACYL)Start: 03-09-2024 End: Drop, BOTH EYES, DIRECTED, Starting on Tue03/09/24 at 1030, Until Tue03/09/24 at 2229, Administer for dilation, [facility] Start: 01-27-2024 End: 33-05-4280enrkemnxhhn 1 % 1 Drop (MYDRIACYL)Start: 01-27-2024 End: Drop, BOTH EYES, DIRECTED, Starting on Tue01/27/24 at 1000, Until Tue01/27/24 at 2159, Administer for dilation, [facility] Start: 11-25-2023 End: 43-69-1188vsoqiracehb 1 % 1 Drop (MYDRIACYL)Start: 11-08-2023 End: 72-53-8642kfbmkehcjzj 1 % 1 Drop (MYDRIACYL)Start: 10-26-2023 End: 44-44-5663wpfdhyolwtg 1 % 1 Drop (MYDRIACYL)Start: 08-18-2023 End: 28-52-9678rbmwfqurhqp 1 % 1 Drop (MYDRIACYL)Start: 03-17-2023 End: 75-10-2196qyyjicrygik 1 % 1 Drop (MYDRIACYL)Start: 07-06-2022 End: 10-99-5034qlvsydjooya 1 % 1 Drop (MYDRIACYL)Start: 02-17-2022 End: 93-03-7954sgdccbtimnp 1 % 1 Drop (MYDRIACYL)Start: 02-15-2022 End: 89-78-1975nnmoknxkqvp 1 % 1 Drop (MYDRIACYL)Start: 02-04-2022 End: 68-56-9597aewklgiqlcx 1 % 1 Drop (MYDRIACYL)Start: 01-05-2022 End: 84-73-0602rqkdqobmkur 1 % 1 Drop (MYDRIACYL)Start: 01-04-2022 End: 59-19-8678ysolkxssaog 1 % 1 Drop (MYDRIACYL)Start: 12-29-2021 End: 89-68-6303sjseeyfwfbj 1 % 1 Drop (MYDRIACYL)Start: 11-11-2021 End: 05-40-9196twkesuzqjbr 1 % 1 Drop (MYDRIACYL) Completed/Discontinued Medications MedicationDrug Class(es)DatesSig (Normalized)Sig (Original)acetaminophen 325 mg oral tablet (11 sources)Start: 12-09-2024 End: 12-97-5678rgzr 4000 mg by mouth every twenty-four aqyow678 mg, Oral, NOW, 1 dose, On 12/09/24 at 1315, Maximum dose of acetaminophen is 4000 mg from all sources in 24 hours.Start: 95-58-8250xujjqycquienx (TYLENOL) 325 MG tablet Take 2 tablets by mouth 08/12/2020 Activealteplase (CATHFLO) injection 2 mg (1 source)Start: 05-08-2019 End: 00-05-2569jtpbqiros (CATHFLO) injection 2 mgAtropine (3 sources)Anticholinergic, Cholinergic Muscarinic Antagonist End: 16-63-7370irbd 1 drop(s) into the eye(s) once daily at bedtimeatropine sulfate (ATROPINE OPHTHALMIC) Use 1 Drop in the left eye daily at bedtime. 01/02/2024 Discontinuedtake 1 drop(s) into the eye(s) once daily at bedtime atropine sulfate (ATROPINE OPHTHALMIC) Use 1 Drop in the left eye daily at bedtime. Activetake 1 drop(s) into the eye(s) once daily at bedtimeatropine sulfate (ATROPINE OPHTHALMIC) Use 1 Drop in the left eye daily at bedtime. 0 Active3 ml bupivacaine hydrochloride 5 mg/ml / EPINEPHrine 0.005 mg/ml injection (1 source)alpha-Adrenergic Agonist, beta-Adrenergic Agonist, Catecholamine, Amide Local AnestheticStart: 02-19-2020 End: 85-11-6908sdrrsjrmzns-EPINEPHrine PF (MARCAINE-w/EPINEPHRINE) 0.5% - 1:324304 injectionceFAZolin (ANCEF) 2 g in dextrose 5 % 100 mL IVPB (1 source)Start: 12-26-2018 End: 39-75-5698wpPBTtarv (ANCEF) 2 g in dextrose 5 % 100 mL IVPBcyclopentolate hydrochloride 10 mg/ml ophthalmic solution (9 sources)Start: 12-18-2020 End: 92-44-2084ukkh 1 drop(s) into the eye(s) twice dailycyclopentolate (CYCLOGYL) 1 % ophthalmic solution Use 1 Drop in the right eye twice daily. 10 mL 0 12/18/2020 02/17/2022 Discontinued (Other)Comment on above:Use 1 Drop in the right eye twice daily.dexamethasone (DECADRON) 12 mg in sodium chloride 0.9 % IVPB (11 sources)Start: 06-19-2019 End: 73-50-6088csvmhzgintynl (DECADRON) 12 mg in sodium chloride 0.9 % IVPB Start: 06-05-2019 End: 68-27-3666zifmfdilwewwn (DECADRON) 12 mg in sodium chloride 0.9 % IVPB Start: 05-22-2019 End: 56-69-5077aimpfaqodtnnw (DECADRON) 12 mg in sodium chloride 0.9 % IVPB Start: 05-08-2019 End: 63-84-6215uenwsigvjmyhn (DECADRON) 12 mg in sodium chloride 0.9 % IVPB Start: 04-24-2019 End: 92-10-7167gwjvnbwvdjztz (DECADRON) 12 mg in sodium chloride 0.9 % IVPB Start: 04-09-2019 End: 63-98-9508mtkxtiznlgeir (DECADRON) 12 mg in sodium chloride 0.9 % IVPB Start: 03-12-2019 End: 97-37-8290caroezzngeypl (DECADRON) 12 mg in sodium chloride 0.9 % IVPB Start: 02-20-2019 End: 41-43-8681iemyqpjzumyxh (DECADRON) 12 mg in sodium chloride 0.9 % IVPB Start: 02-06-2019 End: 51-71-6730ryeukmdvzhwfu (DECADRON) 12 mg in sodium chloride 0.9 % IVPB Start: 01-16-2019 End: 07-21-4714ckcsfzoquxrvj (DECADRON) 12 mg in sodium chloride 0.9 % IVPB Start: 01-02-2019 End: 84-81-6083kwiyofbdlbksk (DECADRON) 12 mg in sodium chloride 0.9 % IVPB dexamethasone 1 mg/ml / tobramycin 3 mg/ml ophthalmic suspension (7 sources)Aminoglycoside Antibacterial, CorticosteroidStart: 12-18-2020 End: 24-17-1739efiv 1 drop(s) into the eye(s) four times dailytobramycin- dexAMETHasone (TOBRADEX) ophthalmic suspension Use 1 Drop in the right eye four times daily. 10 mL 0 12/18/2020 02/17/2022 DiscontinuedComment on above:Use 1 Drop in the right eye four times daily.1 ml diphenhydrAMINE hydrochloride 50 mg/ml cartridge (4 sources)Histamine-1 Receptor AntagonistStart: 06-19-2019 End: 32-02-5644uomlqlksvbTPEQX (BENADRYL) injection 25 mgStart: 06-05-2019 End: 68-14-6531cqfzcvqpokBELWH (BENADRYL) injection 25 mgStart: 05-22-2019 End: 73-23-9099dnksucohzgPZVUQ (BENADRYL) injection 25 mgStart: 05-08-2019 End: 06-26-5663siautysbcnZWAVJ (BENADRYL) injection 25 mgEPINEPHrine / Lidocaine (2 sources)Antiarrhythmic, alpha-Adrenergic Agonist, beta-Adrenergic Agonist, Catecholamine, Amide Local AnestheticStart: 12-26-2018 End: 18-25-5321xnziimyef-EPINEPHrine 1 percent-1:453881 injectionStart: 12-26-2018 End: 76-62-7322syqgjnzuc-EPINEPHrine 1 percent-1:676643 injectionerythromycin 0.005 mg/mg ophthalmic ointment (9 sources)Macrolide, Macrolide AntimicrobialStart: 12-19-2020 End: 74-40-2204zmwttslkekak ophthalmic ointment Use 1 application in the right eye daily at bedtime. 3.5 g 0 12/19/2020 02/17/2022 Discontinued (Other)Start: 52-37-0546pcpuj 1 drop(s) into the eye(s) once dailyerythromycin (ROMYCIN) 5 MG/GM ophthalmic ointment Place 1 drop into the right eye nightly 0 12/19/2020 ActiveComment on above:Use 1 application in the right eye daily at bedtime.2 ml fentaNYL 0.05 mg/ml injection (2 sources)Opioid AgonistStart: 12-26-2018 End: 02-77-3490rggsiJFG (SUBLIMAZE) injectionferrous gluconate 324 mg oral tablet (13 sources)Start: 10-31-2019 End: 94-25-2838gxve 1 tablet by mouth twice dailyferrous gluconate 324 (37.5 Fe) MG TABS Take 1 tablet by mouth 2 times daily 60 tablet 3 Discontinued (LIST CLEANUP)fluorouracil 50 mg/ml injectable solution (4 sources)Nucleoside Metabolic InhibitorStart: 02-20-2019 End: 03-29-8951rvbdegibzgvu (ADRUCIL) 5 GM/100ML chemo injection 780 mgStart: 02-06-2019 End: 53-53-6139gaxmgdnllpcd (ADRUCIL) 5 GM/100ML chemo injection 780 mgStart: 01-16-2019 End: 45-15-6901nibtnkzrnygh (ADRUCIL) 5 GM/100ML chemo injection 780 mgStart: 01-02-2019 End: 28-73-9385cikjheddlxje (ADRUCIL) 5 GM/100ML chemo injection 780 mgiopamidol (ISOVUE-370) 76 % injection 18 mL (3 sources)Start: 07-16-2022 End: 45-30-6538smjvsggif (ISOVUE-370) 76 % injection 18 mLStart: 07-02-2021 End: 38-28-8768ssgocwcyg (ISOVUE-370) 76 % injection 18 mLStart: 07-19-2019 End: 99-53-8590hfkqyjuza (ISOVUE-370) 76 % injection 18 mLiopamidol (ISOVUE-370) 76 % injection 75 mL (3 sources)Start: 07-16-2022 End: 50-64-6623oqqmqyjyf (ISOVUE-370) 76 % injection 75 mLStart: 07-02-2021 End: 72-49-6201kikykyyqv (ISOVUE-370) 76 % injection 75 mLStart: 07-19-2019 End: 26-45-4508qmzhtfnna (ISOVUE-370) 76 % injection 75 mLiron sucrose (VENOFER) 300 mg in sodium chloride 0.9 % 250 mL IVPB (2 sources)Start: 09-27-2024 End: 72-04-3527625 mg, IntraVENous, at 176.7 mL/hr, Administer over 90 Minutes, ONCE, On Tue09/27/24 at 1200, For 1 doseStart: 09-13-2024 End: 34-85-8201685 mg, IntraVENous, at 176.7 mL/hr, Administer over 90 Minutes, ONCE, On Kyara 09/13/24 at 0930, For 1 doseiron sucrose (VENOFER) 400 mg in sodium chloride 0.9 % 250 mL IVPB (1 source)Start: 10-11-2024 End: 99-66-7747494 mg, IntraVENous, at 108 mL/hr, Administer over 150 Minutes, ONCE, On Kyara 10/11/24 at 1130, For 1dose1 ml ketorolac tromethamine 30 mg/ml cartridge (1 source)Nonsteroidal Anti-inflammatory Drug, Cyclooxygenase InhibitorStart: 04-12-2023 End: 44-02-8179fbmeczukz (TORADOL) injection 30 mgleucovorin calcium (WELLCOVORIN) 800 mg in dextrose 5 % 250 mL IVPB (11 sources)Start: 06-19-2019 End: 97-35-1391gjwezqistr calcium (WELLCOVORIN) 800 mg in dextrose 5 % 250 mL IVPBStart: 06-05-2019 End: 28-37-7621witzlklmvw calcium (WELLCOVORIN) 800 mg in dextrose 5 % 250 mL IVPBStart: 05-22-2019 End: 50-08-0027jptpqzhavy calcium (WELLCOVORIN) 800 mg in dextrose 5 % 250 mL IVPBStart: 05-08-2019 End: 57-29-0343tkxbwvkqaj calcium (WELLCOVORIN) 800 mg in dextrose 5 % 250 mL IVPBStart: 04-24-2019 End: 18-98-2657oxbnomvtkk calcium (WELLCOVORIN) 800 mg in dextrose 5 % 250 mL IVPBStart: 04-09-2019 End: 52-33-9226bsmuahacad calcium (WELLCOVORIN) 800 mg in dextrose 5 % 250 mL IVPBStart: 03-12-2019 End: 74-91-0016awrbfysiev calcium (WELLCOVORIN) 800 mg in dextrose 5 % 250 mL IVPBStart: 02-20-2019 End: 16-11-2973tmfqeqhnng calcium (WELLCOVORIN) 800 mg in dextrose 5 % 250 mL IVPBStart: 02-06-2019 End: 61-67-1060fglrotusus calcium (WELLCOVORIN) 800 mg in dextrose 5 % 250 mL IVPBStart: 01-16-2019 End: 22-46-6021aijxzvrqhf calcium (WELLCOVORIN) 800 mg in dextrose 5 % 250 mL IVPBStart: 01-02-2019 End: 55-86-6726zviysaqeyc calcium (WELLCOVORIN) 800 mg in dextrose 5 % 250 mL IVPBmagnesium sulfate 0.0277 meq/ml / potassium sulfate 0.0374 meq/ml / sodium sulfate 0.257 meq/ml oral solution (7 sources)Start: 11-08-2019 End: 22-24-3431Cl Sulfate-K Sulfate-Mg Sulf (SUPREP BOWEL PREP KIT) 17.5-3.13-1.6 GM/177ML SOLN Take as directed 2Bottle 0 11/08/2019 01/15/2020 Discontinued (Stop Taking at Discharge)2 ml midazolam 1 mg/ml injection (1 source)BenzodiazepineStart: 12-26-2018 End: 19-86-6183rnwsptyrk (VERSED) injection2 ml ondansetron 2 mg/ml injection (1 source)Serotonin-3 Receptor AntagonistStart: 12-26-2018 End: 79-04-7994dtgttmmscoi (ZOFRAN) injection 4 mgStart: 12-26-2018 End: 47-13-1342vkijbdxfqms (ZOFRAN) injection 4 mg2 ml orphenadrine citrate 30 mg/ml injection (1 source)Muscle RelaxantStart: 04-12-2023 End: 35-34-6931hynviuacfgdb (NORFLEX) injection 60 mgoxaliplatin (ELOXATIN) 117 mg in dextrose 5 % 250 mL chemo IVPB (9 sources)Start: 06-19-2019 End: 86-81-3560umrvtrbozmk (ELOXATIN) 117 mg in dextrose 5 % 250 mL chemo IVPB Start: 06-05-2019 End: 90-15-0099lonagwelgnz (ELOXATIN) 117 mg in dextrose 5 % 250 mL chemo IVPB Start: 05-22-2019 End: 17-63-2818cgpcccqapeu (ELOXATIN) 117 mg in dextrose 5 % 250 mL chemo IVPB Start: 05-08-2019 End: 83-57-7374evmczznmubs (ELOXATIN) 117 mg in dextrose 5 % 250 mL chemo IVPB Start: 04-24-2019 End: 73-87-9682ocwpywygutg (ELOXATIN) 117 mg in dextrose 5 % 250 mL chemo IVPB Start: 04-09-2019 End: 84-02-4941kcandghidxi (ELOXATIN) 117 mg in dextrose 5 % 250 mL chemo IVPB Start: 03-12-2019 End: 69-20-3022joelfqnshmw (ELOXATIN) 117 mg in dextrose 5 % 250 mL chemo IVPB Start: 02-20-2019 End: 97-46-6316bonmsfihpfx (ELOXATIN) 117 mg in dextrose 5 % 250 mL chemo IVPB Start: 02-06-2019 End: 35-88-3775kbhiiboamus (ELOXATIN) 117 mg in dextrose 5 % 250 mL chemo IVPB oxaliplatin (ELOXATIN) 166 mg in dextrose 5 % 250 mL chemo IVPB (2 sources)Start: 01-16-2019 End: 82-35-4489ibynqsatfxo (ELOXATIN) 166 mg in dextrose 5 % 250 mL chemo IVPB Start: 01-02-2019 End: 68-68-9588gjylsmdutva (ELOXATIN) 166 mg in dextrose 5 % 250 mL chemo IVPB5 ml palonosetron 0.05 mg/ml injection (11 sources)Serotonin-3 Receptor AntagonistStart: 06-19-2019 End: 46-89-6264wqiaxygpzuqz (ALOXI) injection 0.25 mgStart: 06-05-2019 End: 81-63-3354ishtczbauufu (ALOXI) injection 0.25 mgStart: 05-22-2019 End: 78-06-2106sxvtvttixdve (ALOXI) injection 0.25 mgStart: 05-08-2019 End: 48-39-2159yitbyquurkoz (ALOXI) injection 0.25 mgStart: 04-24-2019 End: 73-94-2342riswfjxsefjw (ALOXI) injection 0.25 mgStart: 04-09-2019 End: 55-12-5185rfyjrncmabig (ALOXI) injection 0.25 mgStart: 03-12-2019 End: 51-89-9590gzyatiwztfyk (ALOXI) injection 0.25 mgStart: 02-20-2019 End: 42-99-1811psnyibxtltnu (ALOXI) injection 0.25 mgStart: 02-06-2019 End: 44-97-7127mjpsqtvtdcux (ALOXI) injection 0.25 mgStart: 01-16-2019 End: 35-56-9008iczwqoerlhta (ALOXI) injection 0.25 mgStart: 01-02-2019 End: 19-93-9470yaainkqupxoy (ALOXI) injection 0.25 mg0.6 ml pegfilgrastim-cbqv 10 mg/ml prefilled syringe (3 sources)Leukocyte Growth FactorStart: 05-10-2019 End: 52-23-6761dfgbslqnrrylz-cbqv (UDENYCA) injection 6 mgStart: 04-26-2019 End: 47-27-7079sxcgyabxkrlee-cbqv (UDENYCA) injection 6 mgStart: 04-12-2019 End: 48-70-0493jqrtemafxotac-cbqv (UDENYCA) injection 6 mgpegfilgrastim-cbqv (UDENYCA) injection 6 mg (4 sources)Start: 06-21-2019 End: 78-10-6980pcrwmjnawtece-cbqv (UDENYCA) injection 6 mgStart: 06-07-2019 End: 45-99-2425ogyplqgcdyuwk-cbqv (UDENYCA) injection 6 mgStart: 05-24-2019 End: 70-37-2256uklwkyusbuvis-cbqv (UDENYCA) injection 6 mgStart: 03-14-2019 End: 59-68-7645lozergwiwafqe-cbqv (UDENYCA) injection 6 mgpotassium bicarbonate 20 meq effervescent oral tablet (1 source)Start: 12-09-2024 End: 23-76-299069 mEq, Oral, ONCE, 1 dose, On 12/09/24 at 1315, Do not chew or crush. Dissolve flavored tabletscompletely in 3 to 4 ounces of cold water; unflavored tablets may be dissolved in 3 to 4 ounces of cold juice. Patient to sip slowly over a 5 to 10 minute period. May further dilute if GI adverse effe cts occur.potassium chloride 20 meq extended release oral tablet (5 sources)Start: 11-83-1971wctf 1 tablet by mouth once dailypotassium chloride 20 mEq ER Tab 20 mEq = 1 tab(s), Oral, Daily, Refills(s) 0 Start Date: 01/14/25 Status: Ordered Repeat number: 1Start: 61-02-2749trkd 1 tablet by mouth once dailypotassium chloride (KLOR-CON M) 20 MEQ extended release tablet Take 1 tablet by mouth daily 90 tablet 12/31/2024 ActiveStart: 06-19-2019 End: 35-77-9222ldgxfuynq chloride (KLOR-CON M) extended release tablet 20 mEq Start: 01-30-2019 End: 85-22-1803ovkoqfkdm chloride (KLOR-CON M) extended release tablet 40 mEq predniSONE 20 mg oral tablet (1 source)Start: 04-12-2023 End: 78-17-1398mhxzqgLJMH (DELTASONE) tablet 60 mgwarfarin sodium 5 mg oral tablet (17 sources)Vitamin K AntagonistStart: 08-03-2019 End: 99-96-8231reqg 1 tablet by mouth once dailywarfarin (COUMADIN) 5 MG tablet TAKE 1 TABLET BY MOUTH DAILY OR DIRECTED 30 tablet 2 10/26/2019 02/19/2020 Discontinued (Therapy completed)water 1000 mg/ml injectable solution (1 source)Start: 05-08-2019 End: 57-84-2830twapakv water injection 2.2 mLStart: 05-08-2019 End: 49-03-9831evbktra water injection 2.2 mL Problems Active Problems Problem ClassificationProblemDateDocumented DateEpisodic/ChronicAbdominal pain (2 sources)Abdominal pain; Translations: [Unspecified abdominal pain]Onset: 06-84-8849LznmpmtvXwyooic disorders (20 sources)Anxiety; Translations: [Anxiety disorder, unspecified]Onset: 42-13-0851YrmrhrwGkufahhgv and vision defects (5 sources)Sector or arcuate defects, right eye; Translations: [Sector or arcuate visual field defects]Onset: 65-50-0090EipcanscHchyzbxc of urinary tract (11 sources)Kidney stone; Translations: [Calculus of kidney]Onset: 11-30-2024 EpisodicCancer of colon (20 sources)Malignant tumor of sigmoid colon; Translations: [Malignant neoplasm of sigmoid colon]Onset: 482924-14-8917GlejymkMtntpdl dysrhythmias (20 sources)Paroxysmal tachycardia; Translations: [Paroxysmal tachycardia, unspecified]Onset: 707657-97-2442BylmqdbAdyfkkz on above:noted in 01/02/2024 Cardiology Consult Note page 6. 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]29-75-6010KjxtjcgbEmdolopvqp associated with dizziness or vertigo (13 sources)Bnjxmenfy32-99-5436MqoizopzRzueqzqlcy and other anemia (5 sources)Iron deficiency anemia due to blood loss; Translations: [Iron deficiency anemia secondary to blood loss (chronic)]ChronicDeficiency and other anemia (1 source)Iron deficiency anemia secondary to blood loss (chronic); Translations: [Iron deficiency anemia secondary to blood loss (chronic)]Onset: 93-17-9173EekebstXnqnurswhg and other anemia (1 source)Iron deficiency anemia due to blood loss; Translations: [Iron deficiency anemia due to chronic blood loss]Diabetes mellitus without complication (2 sources)Abnormal glucose level; Translations: [Other abnormal glucose] EpisodicDisorders of lipid metabolism (20 sources)Mixed hyperlipidemia; Translations: [Mixed hyperlipidemia]Onset: 98-84-3938CiewhyxSuhxazoec hypertension (20 sources)Hypertensive disorder; Translations: [Essential (primary) hypertension]Onset: 66-30-9979JnxonphKwnwx and electrolyte disorders (20 sources)Hypokalemia; Translations: [Hypokalemia]Onset: EpisodicGenitourinary symptoms and ill-defined conditions (4 sources)Blood in urine; Translations: [Gross hematuria]Onset: 11-07-2024 EpisodicImmunizations and screening for infectious disease (1 source)Vaccination given; Translations: [Encounter for immunization]Onset: 56-21-0936FuuqybmiIsrahfksvulx; infection of eye (except that caused by tuberculosis or sexually transmitteddisease) (20 sources)Chorioretinitis; Translations: [Unspecified chorioretinal inflammation, unspecified eye]Onset: 456806-14-7734CnfftekIbjngfyngj disorders (20 sources)Primary ovarian failure; Translations: [Other primary ovarian failure]Onset: 006177-85-2767MzcsccfZivh disorders (12 sources)Mild major depression, single episode; Translations: [Major depressive disorder, single episode, mild]Onset: hronic Comment on above:added per 07/09/2023 query response.Nonmalignant breast conditions (20 sources)Mammographic breast tissue ttpropzwve07-57-4181UvrrxuasWkbopxvofpf deficiencies (20 sources)Decreased vitamin Z48-11-6627XwmgfwgZpxco aftercare (7 sources)Long-term current use of anticoagulant; Translations: [buttermaker helper (current) use of anticoagulants]Onset: 97-35-2418EcvtljghNrido aftercare (1 source)FDC (current) use of anticoagulants; Translations: [FDC (current) use of anticoagulants]Onset: 91-16-7256GrzfxidlJtsfz and ill-defined cerebrovascular disease (1 source)Leuko-araiosis; Translations: [Acute cerebrovascular insufficiency] ChronicOther and ill-defined cerebrovascular disease (16 sources)Cerebrovascular disease; Translations: [Cerebrovascular disease, unspecified]Onset: 44-33-0988PiyfcbvAjwti and ill-defined cerebrovascular disease (20 sources)Small vessel cerebrovascular jekkvgn92-39-7471TodvxvcKwukm bone disease and musculoskeletal deformities (20 sources)Txacvziaha50-70-0979NmjuswfyOquyb bone disease and musculoskeletal deformities (4 sources)Disorder of bone; Translations: [Other specified disorders of bone density and structure, multiple sites]Onset: 73-19-3527PsazuzvwRuvxp circulatory disease (6 sources)Elevated blood-pressure reading without diagnosis of hypertension; Translations: [Elevated blood-pressure reading, without diagnosis of hypertension]Onset: 44-20-4197RndhegpyBpbvn diseases of kidney and ureters (2 sources)Urinary tract obstruction; Translations: [Hydronephrosis with renal and ureteral calculous obstruction]Onset: 18-87-9319ZmwsekskZknyw ear and sense organ disorders (1 source)Acute eczematoid otitis externa; Translations: [Acute eczematoid otitis externa, unspecified ear]Onset: 77-06-4001MsydtcoxRjgem ear and sense organ disorders (20 sources)Disorder of external ere29-56-0493RsirutuuNywci eye disorders (20 sources)Optic disc edema; Translations: [Unspecified papilledema]Onset: 02-86-5331KmsrovcVhjtq eye disorders (2 sources)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; Translations: [Ischemic optic neuropathy, right eye]ChronicOther eye disorders (1 source)Unspecified papilledema; Translations: [Optic disc edema]Onset: 58-55-4275OojkjztAswun eye disorders (1 source)Neovascularization of left cornea; Translations: [Unspecified corneal neovascularization, left eye]ChronicOther eye disorders (1 source)History of penetrating keratoplasty; Translations: [Corneal transplant status]ChronicOther eye disorders (20 sources)Edema of optic disc of right eye; Translations: [Unspecified papilledema]35-64-2810FikxmfqVgldx eye disorders (2 sources)Pain of right eye; Translations: [Ocular pain, right eye]Episodic Other eye disorders (1 source)Ocular pain, right eye; Translations: [Pain in right eye]Onset: 33-12-2938NxmgrwqmVhfky eye disorders (1 source)Corneal scars and opacities; Translations: [Unspecified corneal scar and opacity]86-52-4094RvfzlbhpNrjqj gastrointestinal disorders (20 sources)Irritable bowel syndrome; Translations: [Irritable bowel syndrome without diarrhea]Onset: 720948-19-0786TjzgcbcJruru liver diseases (20 sources)Liver cyst; Translations: [Other specified diseases of liver]Onset: 894698-33-2769ScnclgtLtphe nervous system disorders (20 sources)Sensory wjvbtrhevc36-62-9084JyxysyuMegdk nervous system disorders (2 sources)History of uveitis; Translations: [Personal history of other diseases of the nervous system and sense organs]EpisodicOther nervous system disorders (1 source)Personal history of other diseases of the nervous system and sense organs; Translations: [History of uveitis]Onset: 51-56-7107HhdkpuamAcxuf nutritional; endocrine; and metabolic disorders (20 sources)Obesity; Translations: [Other obesity due to excess calories]Onset: 24-53-6194BeuhtgrOicng nutritional; endocrine; and metabolic disorders (4 sources)Obese class I; Translations: [Body mass index (BMI) 34.0-34.9, adult] Onset: 20-06-4142JfrjhfwMshdf nutritional; endocrine; and metabolic disorders (20 sources)Body mass index 30+ - unvmxnr34-95-5336KiqsrnxJtgbr nutritional; endocrine; and metabolic disorders (5 sources)Simple hboriqu98-40-6073HfjiihmSngcd nutritional; endocrine; and metabolic disorders (20 sources)Obese class II; Translations: [Body mass index (BMI) 35.0-35.9, adult]Onset: 74-70-6136RmooezgNgcad nutritional; endocrine; and metabolic disorders (20 sources)Obesity caused by energy tcgfbrnej35-94-2102WesncfoFffgj screening for suspected conditions (not mental disorders or infectious disease) (20 sources)Other specified abnormal findings of blood chemistry; Translations: [Other abnormal blood chemistry]Onset: 213901-94-5936PjvghomoOojik upper respiratory infections (2 sources)Common cold; Translations: [Acute nasopharyngitis [common cold]] Onset: 08-68-6904AptvwafiZbyehpjig; thrombophlebitis and thromboembolism (20 sources)Splenic vein thrombosis; Translations: [Acute embolism and thrombosis of other specified veins]Onset: 385445-55-3373QwgebsujLjukorfd codes; unclassified (20 sources)Obstructive sleep apnea syndrome; Translations: [Obstructive sleep apnea (adult) (pediatric)]Onset: 951564-92-3171DhjxmxoQfaqhrz on above: noted in 01/02/2024 Cardiology Consult Note page 6. added per OP CDI policy. Residual codes; unclassified (1 source)Obstructive sleep apnea (adult) (pediatric); Translations: [Obstructive sleep apnea (adult) (pediatric)]Onset: 13-28-3290RdihsxuLkycvvnu codes; unclassified (1 source)Family history of malignant neoplasm of prostate; Translations: [FAMILY HX MALIG NEOPLASM PROSTATE]Onset: 70-96-2813GimlwudmGunpmwrj codes; unclassified (1 source)Family history of malignant neoplasm of other organs or systems; Translations: [FAM HX MALIG NEOPLASM OTH ORGN/SYS]Onset: 27-30-7841Dyrvlueu Residual codes; unclassified (20 sources)Device in situ; Translations: [Encounter for care related to vascular access port]Onset: 434779-68-0725Ntvedya detachments; defects; vascular occlusion; and retinopathy (20 sources)Epiretinal membrane of right eye; Translations: [Puckering of macula, right eye]Onset: 08-17-4799FatgjokWbjmeaf detachments; defects; vascular occlusion; and retinopathy (20 sources)Rhegmatogenous retinal detachment - macula on; Translations: [Unspecified retinal detachment with retinal break, right eye]Onset: 01-30-2018 EpisodicSpondylosis; intervertebral disc disorders; other back problems (20 sources)Acute back pain with sciatica; Translations: [Lumbago with sciatica, left side]Onset: 180558-66-4464CiqfsdyzOogpxoe disorders (3 sources)Goiter; Translations: [Nontoxic goiter, unspecified]Onset: 10-03-2024 54-75-5995UjvpvkyXiqejynoskkr (1 source)Neutropenia due to and following chemotherapy; Translations: [Chemotherapy induced neutropenia (HCC)]Unclassified (20 sources)Patient encounter status; Translations: [Preop testing]02-11-2022 Unclassified (20 sources)Arcuate visual field defect of right iza86-52-3691Bvucjewkexoy (19 sources)Drug therapy fpnekuj75-38-1478Diyrlawngzce (8 sources)Obstructive nyrzbybptqlvkw49-87-6108Rlvokpa tract infections (15 sources)Hemorrhagic cystitis; Translations: [Hematuria co-occurrent and due to cystitis]Onset: 546010-04-3396WvjwpoybQrsll infection (20 sources)Herpes zoster; Translations: [Disease caused by 2019-nCoV]Onset: 106710-54-4212OnqjxbdyQajqp infection (2 sources)Disease caused by 2018-nCoV; Translations: [COVID-19]Onset: 04-13-2023 Past or Other Problems Problem ClassificationProblemDateDocumented DateEpisodic/ChronicCancer of colon (20 sources)History of malignant neoplasm of colon; Translations: [Personal history of other malignant neoplasmof large intestine]Onset: 11-08-2019 88-98-5606VdtrzeqwWrokl aftercare (20 sources)Device in situ; Translations: [Encounter for adjustment and management of vascular access device]Onset: 794602-53-7269ChbjapapEustf aftercare (16 sources)Patient encounter status; Translations: [Other buttermaker helper (current) drug therapy]Onset: 05-05-2010 Resolved: 629727-08-0085HkkfkowbQesql aftercare (20 sources)Taking high risk medication; Translations: [Other buttermaker helper (current) drug therapy]Onset: 133284-01-5912KlxjkbrcBplak aftercare (10 sources)Long-term current use of drug therapy; Translations: [Other usp (current) drug therapy]Onset: 05-05-2010 Resolved: 07-47-3173JyemapjfGblfc aftercare (1 source)Encounter for adjustment and management of vascular access device; Translations: [Encounter for adjustment and management of vascular access device]Onset: 43-72-3184MccupbzaVttws eye disorders (20 sources)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; Translations: [Corneal disorder due to contact lens, unspecified eye]Onset: 10-23-2015 49-20-0821FwafmtbmDuurp eye disorders (20 sources)Keratoconus, stable, bilateral; Translations: [Keratoconus, stable condition]Onset: 370336-25-8703SrixykwmBuyaj eye disorders (2 sources)Unspecified corneal deposit, left eye; Translations: [Corneal deposit, unspecified]Onset: 670775-22-5046KyqhvqeeBorafdmp codes; unclassified (1 source)Other specified postprocedural states; Translations: [S/P eye surgery] Onset: 53-78-6854DbfngtpwCfayetq (20 sources)Syncope; Translations: [Syncope and collapse]Onset: 01-28-2014 05-89-5346Nqcjayfr Results Test NameValueInterpretationReference RangeFacilityC Urineon [id number] identified Cx Nom (U)Microbiology PROCEDURE: Urine Culture [R1] SOURCE: U CleanCatch BODY SITE: COLLECTED DATE/TIME: 01/14/2025 14:29 EDT RECEIVED DATE/TIME: 01/15/2025 16:39 EDT START DATE/TIME: 01/15/2025 16:39 EDT FREE TEXT SOURCE: Dorota MOORE, Kemi YEH-Diane, Kemi Kaye FINAL REPORTS Final Report [] Verified Date/Time: 01/17/2025 11:38 EDT <10,000 cfu/ml Mixed skin contaminants Performing Locations R1: This test was performed at: [facility], [address] [place] [address], [address] [place] [address], KdjbtcXpldlxReg[facility] Hospital [place] EastComment on above:Performed By: #### [id number] #### [facility] [address] [place] [address] [id number] Visit Summaryon 42-10-2424Ddtxaogvpd Visit Summary Ambulatory Visit Summary JACKY GONZALEZ :1955 Visit Date:01/14/2025 Ambulatory Visit Instructions Your Diagnosis Annual visit for general adult medical examination without abnormal findings Adenocarcinoma of sigmoid colon Atrial fibrillation Major depressive disorder, single episode, mild Generalized anxiety disorder Hyperlipemia, mixed Hypertension Low vitamin D level Osteopenia of multiple sites BMI 35.0-35.9,adult Obesity due to excess calories Your Care Team Attending Physician - Viral MSN, GENERAL PURCHASING AGENT-Stacia POSADA Primary Care Physician - Viral MSN, GENERAL PURCHASING AGENT-RACQUET MAKERStacia This Is Your Medications List apixaban (Eliquis 5 mg oral tablet) aspirin (aspirin 81 mg Oral EC Tab) atorvastatin (atorvastatin 20 mg Tab) betamethasone topical (betamethasone dipropionate topical 0.05% ointment) budesonide (budesonide 3 mg oral delayed release capsule) carvedilol (carvedilol 6.25 mg Tab) escitalopram (escitalopram 10 mg Tab) flecainide (flecainide 100 mg Tab) lisinopril (lisinopril 20 mg Tab) lorazepam (Ativan 0.5 mg Tab) meclizine (meclizine 12.5 mg Tab) potassium chloride (potassium chloride 20 mEq ER Tab) Procedures Performed Colonoscopy (01/15/2020), Colectomy (11/28/2018), Cryo cervix 1990's, L retinal detachment [facility] 2013. Discharge Vitals Heart Rate (Peripheral) 63 Respiratory Rate 16 Blood Pressure 128/70 Height 167 cm Height 66 in Weight 97.5 kg Weight 214.95 lb BMI 34.96 What to do next Scheduled Follow-Up Appointments Tuesday 1:50 PM EDT With: Kemi Greenberg Where: [facility] [address] [place] [address]- Tuesday2025 11:00 AM EST With: Viral PARKER, GENERAL PURCHASING AGENT-RACQUET MAKER, Stacia Mcmahan Where: [facility] [address], [place] [id number]- Tuesday2025 9:30 AM EDT With: Where: [facility] [address] [place] [address]- Medications What How Much When Why Instructions Unchanged apixaban (Eliquis 5 mg oral tablet) 180 EA, 0 Refill(s), TAKE 1 TABLET BY MOUTH TWICE A DAY Unchanged aspirin (aspirin 81 mg Oral EC Tab) 1 Tablets By Mouth Every day Unchanged atorvastatin (atorvastatin 20 mg Tab) 1 Tablets By Mouth Every day Unchanged betamethasone topical (betamethasone dipropionate topical 0.05% ointment) 1 Application Topical 2 times a day Unchanged budesonide (budesonide 3 mg oral delayed release capsule) 3 Capsules By Mouth Once a day (in the morning) Unchanged carvedilol (carvedilol 6.25 mg Tab) By Mouth 2 times a day Unchanged escitalopram (escitalopram 10 mg Tab) See instructions TAKE 1.5 TABLETS BY MOUTH DAILY Unchanged flecainide (flecainide 100 mg Tab) 1 Tablets By Mouth Every 12 hours Unchanged lisinopril (lisinopril 20 mg Tab) 1 Tablets By Mouth Every day Unchanged lorazepam (Ativan 0.5 mg Tab) 1 Tablets By Mouth 3 times a day as needed for anxiety Anxiety, generalized duration 30 days Unchanged meclizine (meclizine 12.5 mg Tab) 1 Tablets By Mouth 3 times a day as needed for for dizziness Unchanged potassium chloride (potassium chloride 20 mEq ER Tab) 1 Tablets By Mouth Every day Allergies No Known Allergies No Known Medication Allergies Problems Ongoing - Any problem that you are currently receiving treatment for. 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 Atrial fibrillation BMI 35.0-35.9,adult Cerebrovascular small vessel disease Class 2 obesity due to excess calories in adult Cystitis with hematuria Dense breast tissue on mammogram Dizziness Eczema of external ear Edema of optic disc of right eye Encounter for screening for cardiovascular disorders Generalized anxiety disorder Hyperlipemia, mixed Hypertension IBS (irritable bowel syndrome) Kidney stone Left lumbar radiculopathy Left retinal detachment Low vitamin D level Major depressive disorder, single episode, mild Obesity due to excess calories KEREN (obstructive sleep apnea) Osteopenia of multiple sites Sensory neuropathy Supraventricular tachycardia Ureteral stone with hydronephrosis Historical - Any problem that you are no longer receiving treatment for. Chronic uveitis Herpes zoster Primary ovarian failure Splenic vein thrombosis Patient Survey You may receive a survey via text or e-mail asking about your office visit. Please share your experience with us by completing your survey. We appreciate your feedback and thank you for choosing us for your care. Education Materials Osteopenia Osteopenia is a loss of thickness (density) inside the bones. Another name for osteopenia is low bone mass. Mild osteopenia is a normal part of aging. It is not a disease, and it does not cause symptoms. However, if (more content not included)...[facility] Ambulatory Visit SummaryAmbulatory Visit Summary JACKY GONZALEZ :1955 Visit Date:01/14/2025 Ambulatory Visit Instructions Your Diagnosis Ureteral stone with hydronephrosis Kidney stone Gross hematuria Anticoagulated Your Care Team Attending Physician - Dorota MOORE, Kemi Kaye Primary Care Physician - Viral MSN, GENERAL PURCHASING AGENT-RACQUET MAKER, Stacia Mcmahan This Is Your Medications List Contact prescribing physician if questions or concerns apixaban (Eliquis 5 mg oral tablet) aspirin (aspirin 81 mg Oral EC Tab) atorvastatin (atorvastatin 20 mg Tab) betamethasone topical (betamethasone dipropionate topical 0.05% ointment) budesonide (budesonide 3 mg oral delayed release capsule) carvedilol (carvedilol 6.25 mg Tab) escitalopram (escitalopram 10 mg Tab) flecainide (flecainide 100 mg Tab) lisinopril (lisinopril 20 mg Tab) lorazepam (Ativan 0.5 mg Tab) meclizine (meclizine 12.5 mg Tab) potassium chloride (potassium chloride 20 mEq ER Tab) Procedures Performed Colonoscopy (01/15/2020), Colectomy (11/28/2018), Cryo cervix 1990's, L retinal detachment [facility] 2013. Discharge Vitals Heart Rate (Peripheral) 63 Blood Pressure 135/78 Height 165 cm Height 65 in Weight 98.3 kg Weight 216.714 lb BMI 36.11 What to do next Scheduled Follow-Up Appointments Tuesday2025 11:00 AM EST With: Viral MSN, GENERAL PURCHASING AGENT-RACQUET MAKER, Stacia Mcmahan Where: [facility] [address] [place] [address]- Tuesday2025 9:30 AM EDT With: Where: [facility] [address] [place] [address]- Medications What How Much When Why Instructions Unchanged apixaban (Eliquis 5 mg oral tablet) 180 EA, 0 Refill(s), TAKE 1 TABLET BY MOUTH TWICE A DAY Contact prescribing physician if questions or concerns Unchanged aspirin (aspirin 81 mg Oral EC Tab) 1 Tablets By Mouth Every day Contact prescribing physician if questions or concerns Unchanged atorvastatin (atorvastatin 20 mg Tab) 1 Tablets By Mouth Every day Contact prescribing physician if questions or concerns Unchanged betamethasone topical (betamethasone dipropionate topical 0.05% ointment) 1 Application Topical 2 times a day Contact prescribing physician if questions or concerns Unchanged budesonide (budesonide 3 mg oral delayed release capsule) 3 Capsules By Mouth Once a day (in the morning) Contact prescribing physician if questions or concerns Unchanged carvedilol (carvedilol 6.25 mg Tab) By Mouth 2 times a day Contact prescribing physician if questions or concerns Unchanged escitalopram (escitalopram 10 mg Tab) See instructions TAKE 1.5 TABLETS BY MOUTH DAILY Contact prescribing physician if questions or concerns Unchanged flecainide (flecainide 100 mg Tab) 1 Tablets By Mouth Every 12 hours Contact prescribing physician if questions or concerns Unchanged lisinopril (lisinopril 20 mg Tab) 1 Tablets By Mouth Every day Contact prescribing physician if questions or concerns Unchanged lorazepam (Ativan 0.5 mg Tab) 1 Tablets By Mouth 3 times a day as needed for anxiety Anxiety, generalized duration 30 days Contact prescribing physician if questions or concerns Unchanged meclizine (meclizine 12.5 mg Tab) 1 Tablets By Mouth 3 times a day as needed for for dizziness Contact prescribing physician if questions or concerns Unchanged potassium chloride (potassium chloride 20 mEq ER Tab) 1 Tablets By Mouth Every day Contact prescribing physician if questions or concerns Allergies No Known Allergies No Known Medication Allergies Problems Ongoing - Any problem that you are currently receiving treatment for. 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 Atrial fibrillation BMI 35.0-35.9,adult Cerebrovascular small vessel disease Class 2 obesity due to excess calories in adult Cystitis with hematuria Dense breast tissue on mammogram Dizziness Eczema of external ear Edema of optic disc of right eye Encounter for screening for cardiovascular disorders Generalized anxiety disorder Hyperlipemia, mixed Hypertension IBS (irritable bowel syndrome) Kidney stone Left lumbar radiculopathy Left retinal detachment Low vitamin D level Major depressive disorder, single episode, mild Obesity due to excess calories KEREN (obstructive sleep apnea) Osteopenia of multiple sites Sensory neuropathy Supraventricular tachycardia Ureteral stone with hydronephrosis Historical - Any problem that you are no longer receiving treatment for. Chronic uveitis Herpes zoster Primary ovarian failure Splenic vein thrombosis Patient Survey You may receive a survey via text or e-mail asking about your office visit. Please share your experience with us by completing your survey. We appreciate your feedback and thank you for choosing us for your care. Patient Portal You may access all of your results a (more content not included)...[facility] SummaryAmbulatory Visit Summary JACKY GONZALEZ :1955 Visit Date:01/14/2025 Ambulatory Visit Instructions Your Diagnosis Annual visit for general adult medical examination without abnormal findings Adenocarcinoma of sigmoid colon Atrial fibrillation Major depressive disorder, single episode, mild Generalized anxiety disorder Hyperlipemia, mixed Hypertension Low vitamin D level KEREN (obstructive sleep apnea) Osteopenia of multiple sites BMI 35.0-35.9,adult Obesity due to excess calories Your Care Team Attending Physician - Viral PARKER, Stacia GRAHAM Primary Care Physician - Viral PARKER, Stacia GRAHAM This Is Your Medications List apixaban (Eliquis 5 mg oral tablet) aspirin (aspirin 81 mg Oral EC Tab) atorvastatin (atorvastatin 20 mg Tab) betamethasone topical (betamethasone dipropionate topical 0.05% ointment) budesonide (budesonide 3 mg oral delayed release capsule) carvedilol (carvedilol 6.25 mg Tab) escitalopram (escitalopram 10 mg Tab) flecainide (flecainide 100 mg Tab) lisinopril (lisinopril 20 mg Tab) lorazepam (Ativan 0.5 mg Tab) meclizine (meclizine 12.5 mg Tab) potassium chloride (potassium chloride 20 mEq ER Tab) Procedures Performed Colonoscopy (01/15/2020), Colectomy (11/28/2018), Cryo cervix 1990's, L retinal detachment [facility] 2013. What to do next Scheduled Follow-Up Appointments Tuesday 1:50 PM EDT With: Kemi Greenberg Where: [facility] [address], [address] [place] [address]- Tuesday2025 11:00 AM EST With: Viral PARKER, Stacia GRAHAM Where: [facility] [address] [place] [address]- Tuesday2025 9:30 AM EDT With: Where: [facility] [address] [place] [address]- Medications What How Much When Why Instructions Unchanged apixaban (Eliquis 5 mg oral tablet) 180 EA, 0 Refill(s), TAKE 1 TABLET BY MOUTH TWICE A DAY Unchanged aspirin (aspirin 81 mg Oral EC Tab) 1 Tablets By Mouth Every day Unchanged atorvastatin (atorvastatin 20 mg Tab) 1 Tablets By Mouth Every day Unchanged betamethasone topical (betamethasone dipropionate topical 0.05% ointment) 1 Application Topical 2 times a day Unchanged budesonide (budesonide 3 mg oral delayed release capsule) 3 Capsules By Mouth Once a day (in the morning) Unchanged carvedilol (carvedilol 6.25 mg Tab) By Mouth 2 times a day Unchanged escitalopram (escitalopram 10 mg Tab) See instructions TAKE 1.5 TABLETS BY MOUTH DAILY Unchanged flecainide (flecainide 100 mg Tab) 1 Tablets By Mouth Every 12 hours Unchanged lisinopril (lisinopril 20 mg Tab) 1 Tablets By Mouth Every day Unchanged lorazepam (Ativan 0.5 mg Tab) 1 Tablets By Mouth 3 times a day as needed for anxiety Anxiety, generalized duration 30 days Unchanged meclizine (meclizine 12.5 mg Tab) 1 Tablets By Mouth 3 times a day as needed for for dizziness Unchanged potassium chloride (potassium chloride 20 mEq ER Tab) 1 Tablets By Mouth Every day Allergies No Known Allergies No Known Medication Allergies Problems Ongoing - Any problem that you are currently receiving treatment for. 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 Atrial fibrillation BMI 35.0-35.9,adult Cerebrovascular small vessel disease Class 2 obesity due to excess calories in adult Cystitis with hematuria Dense breast tissue on mammogram Dizziness Eczema of external ear Edema of optic disc of right eye Encounter for screening for cardiovascular disorders Generalized anxiety disorder Hyperlipemia, mixed Hypertension IBS (irritable bowel syndrome) Kidney stone Left lumbar radiculopathy Left retinal detachment Low vitamin D level Major depressive disorder, single episode, mild Obesity due to excess calories KEREN (obstructive sleep apnea) Osteopenia of multiple sites Sensory neuropathy Supraventricular tachycardia Ureteral stone with hydronephrosis Historical - Any problem that you are no longer receiving treatment for. Chronic uveitis Herpes zoster Primary ovarian failure Splenic vein thrombosis Patient Survey You may receive a survey via text or e-mail asking about your office visit. Please share your experience with us by completing your survey. We appreciate your feedback and thank you for choosing us for your care. Patient Portal You may access all of your results and other medical record information on our secure patient portal. If you are not signed up for this yet, please contact [employer] at [phone] to get signed up today. Language Information Language assistance services are available as needed. Indira [facility] Medicine Office/Clinic Noteon [id number] Medicine Office/Clinic NoteMiravista [facility] Office/Clinic Note Chief Complaint Medicare Wellness Visit Review of Systems PHQ Score Initial Depression Screen Score: 0 SCORE Physical Exam Vitals & Measurements HR: 63(Peripheral) RR: 16 BP: 128/70 SpO2: 97% HT: 66 in HT: 167 cm WT: 97.5 kg WT: 214.95 lb BMI: 34.96 Assessment/Plan 1. Annual visit for general adult medical examination without abnormal findings (Z00.00: Encounter for general adult medical examination without abnormal findings) The patient was given a customized and personalized print out of all the current AHRQ USPSTF???s recommendations for preventative services and all current CDC recommended immunizations, relevant riskrecommendations and the following patient brochures were given. Reviewed Medicare Prevention Services checklist. CDC-Falls Prevention and home safety screening reviewed. Patient denies any falls in last 12 months, voices no worry about falling. Exhibits no problems with sitting, standing or ambulation. Patient aware with keeping walk way area free of clutter to prevent tripping and/or falling. [place] Advance Directives reviewed. Documents remain at home/commercial real estate attorney's office, encouraged to bring in for scanning into chart. Patient denies any problems with ADL???s and Instrumental ADL???s. Cognitive screening completed with memory and clock face drawing. No deficits noted. Immunization record reviewed, discussed Shingrix vaccine with educational handout and availability.COVID vaccines have been administered, with 1 Booster received. Allergies and medications reviewed and up to date. No concerns with taking medication as prescribed. Reviewed OTC medications, medication list up to date. Blood tests were reviewed: Discussed what tests need to be updated.Labs were ordered, will have completed prior to next PCP visit. Labs to be completed with [facility]. No concerns with bowel/ bladder. Colonoscopy last completed 10/30/24, repeat in 3 years. Reviewed pain symptoms : denies pain, no pain medications taken. Reviewed all outside providers that patient follows. Last visit summary notes available in chart and/or have been requested. Patient declines any signs or symptoms of depression at this time. 15 minutes spent with screening and documentation. PHQ9 screening score 1. Patient never drinks alcohol, denies concerns. 3 minutes spent with screening and documentation. Audit score 0. Follow up scheduled with PCP, 03/15/26. AWV has been scheduled, 01/14/26 @9:30am. 2. Adenocarcinoma of sigmoid colon (C18.7: Malignant neoplasm of sigmoid colon) Follows with oncologist Dr. Mireles, colonoscopy completed 10/30/24 with a 3 year repeat. 3. 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 Portillo. Denies SOB, chest pain or irregular heart rhythm. Manages medications with office visits. Cardiac-/DASH nutritional education handout reviewed with patient and provided. Tries following healthy dietary intake. Last visit office notes are available in medical chart for PCP to review. 4. Major depressive disorder, single episode, mild (F32.0: Major depressive disorder, single episode, mild) PHQ-9 completed with score 1. Denies concerns, voices no suicidal ideations. Taking Lexapro daily, patient voices effectiveness with this medication. Educational handouts reviewed with signs and symptoms to monitor for and report to PCP. Medications managed with office visits, OPIOD risk with OARRScompleted with PCP. 5. Generalized anxiety disorder (F41.1: Generalized anxiety disorder) ADINA-7 completed, score 4. Taking Lexapro with effectiveness and Ativan as needed. Following up withas directed with medication management. Reviewed concerns when to see your PCP: changes with worrying too much and it is interfering with your work, relationships and/or other parts of your life. Your fear, worry or anxiety is upsetting to you and difficult to control. If additional trouble with depression is noticeable contact your provider. Patient does voice understanding. 6. Hyperlipemia, mixed (E78.2: Mixed hyperlipidemia) Patient encouraged to eat a diet that is low in saturated fats. Stressed importance of loosing weight and/or maintain healthy BMI. as being overweight does produce more lipids. Monitor alcohol intakeand avoid smoking. Risks may also increase with a family history of hyperlipidemia. Patient voices u nderstanding with healthy dietary choices to reduce risk factors associated with CVA. Taking statinmedication daily. Will continue to follow up with labs as directed. 7. Hypertension (I10: Essential (primary) hypertension) Patient taking medications daily as directed, BP monitored at home with <140/90 results. Patientdoes voice understanding with signs and symptoms to monitor for. HTN stoplight handout reviewed with importance of keeping BP <140/90 to prevent increased cardiovascular risks. DASH dietary handout reviewed with importance to lower salt intake, eat more chicken, fish and lean white hussain (more content not included)...[facility]Comment on above:Result Comment: Electronically Signed By: Viral MSN, GENERAL PURCHASING AGENT-ALBINO, Stacia Mcmahan\.br\Date and Time Signed: 01/14/25 15:24 EDT\.br\Electronically Co-Signed By: Humaira CAMPOVERDE, Shannon Sheehan\.br\Date and Time Co-Signed: 01/14/25 10:37 EDTUrology Office/Clinic Noteon [id number] Office/Clinic NoteUrology Office/Clinic Note Chief Complaint f/u HPI Staff 69 yr old female here for 6 wk f/u w/KUB & LEX dx: gross hematuria, anticoagulated, ureteral stone with hydronephrosis, KUB & LEX done 12/18/24 CT done 11/29/24- 6 mm stone right kidney w/ mild hydronephrosis and hydroureter Patient denies any dysuria or gross hematuria. Denies any flank or abdomen pain. no symptoms History of Present Illness Staff HPI reviewed and agree. Review of Systems PHQ Score Initial Depression Screen Score: 0 SCORE no fever, chills, malaise, myalgia. no rash/lesions. no chest pain, palpitations, or SOB. no abdominal pain, nausea, vomiting. no unilateral calf swelling, redness, pain Physical Exam Vitals & Measurements HR: 63(Peripheral) BP: 135/78 HT: 165 cm HT: 65 in WT: 216.714 lb WT: 98.3 kg BMI: 36.11 General: nontoxic, well-nourished, appears stated age Mouth: moist mucosa Lungs: normal respiratory effort Cardio: regular rate, good distal perfusion Abdomen: nondistended, no suprapubic distention or tenderness, no CVA tenderness Neurologic: Grossly normal Skin: No rashes or suspicious lesions Assessment/Plan KNA pt. Pt here with her significant other. PMH: ND no. CVA no. DVT no. PE no. Cancer yes (colon). Smoking hx no. Anticoagulated yes, Eliquis for Afib for almost 2 yrs. Also on ASA. Issues voiding no. BBS 7. PSH: Abdominal surgeries yes, hx of colon cancer s/p resection and chemo (pt think FOLFOX) 2019. Urologic surgeries no. Stents no. 1. Ureteral stone with hydronephrosis (N13.2: Hydronephrosis with renal and ureteral calculous obstruction) CTU 11/29/24 FT - Mild R hydroureteronephrosis to the level of pelvic brim where there is a 5 mm ureteral stone. 12/05/24 - cysto, R ureteroscopy, R laser litho, R ureteral stent placement. Pt removed string stentafter 3 days without difficulty. 12/18/24 KUB - no significant calculi identified over expected courses of either ureter or bladder 12/18/24 LEX - no hydronephrosis UA today large blood, trace leuks Pt here for follow up to stone procedure. Pt reports she recovered well, denies any issues at this time. Pt denies seeing gross hematuria since procedure. This is patient's first stone episode. Discussed general stone prevention measures. Pt reports she drinks a lot of Pepsi and very minimal water.Advised patient that dehydration is the number one cause of kidney stones. Discussed completing meta bolic workup as patient does have another stone in the kidney. Pt would like to work on increasing fluid intake at this time and will consider workup at follow up. Pt agreeable to plan. -Greatly increase fluid intake, minimize bladder irritants -Low animal protein, oxalate diet -Consider metabolic workup at follow up -F/U 6 months with KUB (recall placed) Ordered: Postoperative follow-up visit, related to the original procedure [id number] Urine Culture 2. Kidney stone (N20.0: Calculus of kidney) CTU 11/29/24 FT - 6 mm stone RLP 12/18/24 KUB - approx 5x2 R lower pole renal calculus noted. No significant calculi identified elsewhere overlying the kidneys Discussed KUB and previous CT results with patient indicating a 6mm stone in the R kidney. Advised patient that due to size, she will unlikely pass this on her own. Discussed options including ESWL vother treatment options now or waiting as this is not causing patient any problems. Discussed with patient if she develops pain or hematuria returns, likely it will be this stone coming out of the kid dylan. ER precautions discussed. Pt opted to wait and follow up with our office in 6 months with repeat KUB. I am agreeable to this. Advised patient if she changes her mind and would like procedure completed sooner, can call our office and make an appointment to discuss with Dr. Klein. Otherwise, she will follow up in 6 months with him with KUB. Pt verbalizes understanding. -F/U in 6 months with KUB (with Dr. Klein), call if she wishes to schedule procedure sooner -ER for severe pain, hematuria, inability to urinate, N/V, fever/chills -See #1 Ordered: Postoperative follow-up visit, related to the original procedure [id number] Urine Culture Urnls Dip Stick Auto w/o Microscopy POC 94552 3. Gross hematuria (R31.0: Gross hematuria) 11/13/24 cytology - negative UA today large blood and trace leuks Pt denies any gross hematuria since stone procedure. Discussed UA with patient today, will send forculture to ensure no infection. Advised pt blood on UA could be from previous procedure and stent. CTU, cystoscopy and cytology all negative. -See #1 Ordered: Postoperative follow-up visit, related to the original procedure 11489 Urine Culture 4. Anticoagulated (Z79.01: FDC (current) use of anticoagulants) Eliquis for Afib x ~2 yrs. Sees cardiology in [place], last saw cardiology in September or Sarah this yr. Also on ASA. -Increased procedural risk Ordered: Postoperative follow-up visit, related to the original procedure 990 (more content not included)...[facility] EastComment on above:Result Comment: Electronically Signed By: Kemi Greenberg\.anselmo\Date and Time Signed: 01/14/25 14:46 [facility] Medicine Office/Clinic Noteon [id number] Medicine Office/Clinic NoteFamily Medicine Office/Clinic Note Chief Complaint Patient presents today for 2 week bp recheck. The patient presents with concerns about fluctuating blood pressure and medication management. HPI Staff Patient is here for follow up on hypertension. How often are you checking your blood pressure? Daily What are your average readings? 100's-110's/ 60's-70's Are you compliant with your diet? yes Do you exercise? no Are you compliant with your medications? yes Are you having difficulty affording your medications? no Do you have side effects from the medication? no Do you have any of the following symptoms? Chest Pain? no Palpitations? no FERRARA/SOB? no Headache? no Peripheral Edema? no Light Headedness? no History of Present Illness The patient is a 69-year-old female presenting with hypertension management. Staff HPI reviewed with the patient. She reports episodes of low blood pressure, with readings as low as 86/65 mmHg, causing symptoms oflightheadedness and wobbliness. The patient was previously on metoprolol, which was switched to carvedilol by her ship captain, along with the addition of potassium supplementation. The patient has a history of low potassium levels, particularly noted during cancer treatments and a previous emergency room visit for a kidney stone. Recent blood work indicated normal potassium andkidney function, negating the need for repeated tests at this visit. The patient is currently on lisinopril, with a dosage of 20 mg, and hydrochlorothiazide was recently added to manage blood pressure. However, due to episodes of low blood pressure, the decision was made to hold the hydrochlorothiazide temporarily and monitor blood pressure closely. Review of Systems PHQ Score Initial Depression Screen Score: 0 SCORE - Cardiovascular: Reports episodes of low blood pressure with lightheadedness. Denies chest pain. - Neurological: Reports lightheadedness associated with low blood pressure episodes. Physical Exam Vitals & Measurements HR: 70(Peripheral) RR: 16 BP: 112/70 SpO2: 98% HT: 65 in HT: 165 cm WT: 214.73 lb WT: 97.4 kg BMI: 35.78 Constitutional: Well-groomed, well-nourished, no signs of acute distress. HEENT: Head normocephalic, sclera is clear. Cardiothoracic: Heart rate and rhythm is regular strong, normal S1 and S2. No murmurs, rubs, or bruits auscultated. No peripheral edema, peripheral pulses +2 Respiratory: Lung sounds are clear throughout, respirations regular nonlabored. Abdomen/GI: Abdomen soft nondistended. Musculoskeletal: Gait is steady, full range of motion. Integument: No rashes or lesions noted to the exposed skin. Psychiatric: Alert and oriented x 3, pleasant, no mood changes. Assessment/Plan 1. Hypertension (I10: Essential (primary) hypertension) The importance of the following were all reviewed with the patient: -Take medications as prescribed. There are simple Lifestyle Modifications that you can do to reduce your blood pressure. -Weight Reduction -Follow the DASH eating plan. -Reduce Sodium (Salt) Intake to 2000mg per day. -Use Moderation when consuming alcohol. - To improve your health we recommend increasing your level of moderate exercise to at least 2.5 hrs per week. The patient's hypertension management includes the use of carvedilol and lisinopril, with recent adjustments due to episodes of low blood pressure. Hydrochlorothiazide was added but is currently heldto prevent further hypotensive episodes. The patient is advised to monitor blood pressure closely and report readings in two weeks. 2. Class 2 obesity due to excess calories in adult (E66.09: Other obesity due to excess calories) Calorie restriction along with routine aerobic exercises discussed in order to avoid hypertension, osteoarthritis, metabolic syndrome and/or worsening of chronic underlying disease states. Encouragedto limit sugary drinks, foods high in sodium, as well as alcohol. 3. BMI 35.0-35.9,adult (Z68.35: Body mass index [BMI] 35.0-35.9, adult) see #2 This note was created by the assist of a speech-recognition program although the intention is to generate a document that actually reflects the content of the visit, no guarantees can be provided that every mistake has been identified and corrected by editing. 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 Atrial fibrillation BMI 35.0-35.9,adult Cerebrovascular small vessel disease Class 2 obesity due to excess calories in adult Cystitis with hematuria Dense breast tissue on mammogram Dizziness Eczema of external ear Edema of optic disc of right eye Encounter for screening for cardiovascular disorders Generalized anxiety di (more content not included)...[facility] EastComment on above:Result Comment: Electronically Signed By: Viral PARKER, Stacia GRAHAM\.br\Date and Time Signed: 01/11/25 12:32 EDTBasic Metabolic Panelon [id number] gap [Moles/Vol]12 mmol/L9 - 16 mmol/LBon [facility] HospitalCalcium [Mass/Vol]9.2 mg/dL8.6 - 10.4 mg/dLBon [facility] Chloride [Moles/Vol]101 mmol/L98 - 107 mmol/LBon [facility] HospitalCO2 [Moles/Vol]26 mmol/L20 - 31 mmol/LBon [facility] HospitalCreatinine [Mass/Vol] 1.3 mg/dLHigh0.50 - 0.90 mg/dLBon [facility] HospitalEst, Glom Filt [id number]- PINFBon [facility] HospitalComment on above: These results are not intended for use in patients <18 years of age. eGFR results are calculated without a race factor using the 2020 CKD-EPI equation. Careful clinical correlation is recommended, particularly when comparing to results calculated using previous equations. The CKD-EPI equation is less accurate in patients with extremes of muscle mass, extra-renal metabolism of creatine, excessive creatine ingestion, or following therapy that affects renal tubular secretion. Glucose [Mass/Vol]132 mg/cUXgvq33 - 99 mg/dLBon [facility] Interpretation and review of laboratory resultsAbnormalBon [facility] Potassium [Moles/Vol]4.0 mmol/L3.7 - 5.3 mmol/LBon [facility] HospitalSodium [Moles/Vol]139 mmol/L136 - 145 mmol/LBon [facility] HospitalUrea nitrogen [Mass/Vol]22 mg/dL8 - 23 mg/dLBon [facility] HospitalUrea nitrogen/Creatinine [Mass ratio]17 mg/mg9 - 20Bon [facility] HealthBasic Metabolic Profon [id number] gap [Moles/Vol]12 mmol/LNormal9-16[facility] CenterComment on above:Performed By: #### CEA #### [employer] [address] [place] [address] [employer] Officer: Daniel Malone MD #### FELIPE LE #### [address] [place] [address] [employer] Officer: Kelsie Pedro MDBUN/CRE [id number] Comment on above:Performed By: #### CEA #### [address] [address] [employer] Officer: Daniel Malone MD #### CDP, CP #### [address] [place] [address] [employer] Officer: Kelsie Pedro MDCalcium [Mass/Vol]9.2 mg/dLNormal8.6-10.4[facility] CenterComment on above:Performed By: #### CEA #### [address] [address] [employer] Officer: Daniel Malone MD #### CDP, CP #### [address] [place] [address] [employer] Officer: ANAHY Donaldhloride [Moles/Vol]101 mmol/MUerokl20-594QcltaCommunity Regional Medical CenterComment on above:Performed By: #### CEA #### [address] [address] [employer] Officer: Daniel Malone MD #### CDP, CP #### [address] [place] [address] [employer] Officer: Kelsie Pedro MDCO2 [Moles/Vol]26 mmol/OUppwah53-17ZxndhCommunity Regional Medical CenterComment on above:Performed By: #### CEA #### [address] [address] [employer] Officer: Daniel Malone MD #### CDP, CP #### [address] [place], [place] [id number] [employer] Officer: Kelsie Sturtz, MDCreatinine [Mass/Vol]1.3 mg/dLHigh0.50-0.90[facility] Medical CenterComment on above:Performed By: #### CEA #### [address] [address] [employer] Officer: Daniel Malone MD #### CDP, CP #### [address] [place] [id number] [employer] Officer: Kelsie Pedro MDGFR/1.73 sq M.predicted among non-blacks MDRD (S/P/Bld) [Vol rate/Area]45 mL/min/{1.73_m2}Low>60[facility] Medical CenterComment on above:Result Comment: These results are not intended for use in patients <18 years of age. eGFR results are calculated without a race factor using the 2020 CKD-EPI equation. Careful clinical correlation is recommended, particularly when comparing to results calculated using previous equations. The CKD-EPI equation is less accurate in patients with extremes of muscle mass, extra-renal metabolism of creatine, excessive creatine ingestion, or following therapy that affects renal tubular secretion.Performed By: #### CEA #### [address] [address] [employer] Officer: Daniel Malone MD #### CDP, CP #### [address] [place] [id number] [employer] Officer: Kelsie Pedro MDGlucose [Mass/Vol]132 mg/tBAydr61-34RkgwjChildren's Hospital of ColumbusComment on above:Performed By: #### CEA #### [address] [address] [employer] Officer: Daniel Malone MD #### CDP, CP #### [address] [place] [id number] [employer] Officer: JOCELYNN Donaldotassium [Moles/Vol]4.0 mmol/LNormal3.7-5.3MChildren's Hospital of ColumbusComment on above:Performed By: #### CEA #### [facility] [address] [place] [address] [employer] Officer: Daniel Malone MD #### CDP, CP #### [address] [place], [place] [id number] [employer] Officer: BRIANNA Donaldodium [Moles/Vol]139 mmol/XKtqrdw893-526JudayCommunity Regional Medical CenterComment on above:Performed By: #### CEA #### [facility] [employer] [address] [place] [address] [employer] Officer: Daniel Malone MD #### CDP, CP #### [address] [place], [place] [id number] [employer] Officer: Kelsie Pedro MDUrea nitrogen [Mass/Vol]22 mg/dLNormal8-23Community Regional Medical CenterComment on above:Performed By: #### CEA #### [id number] [place] [address] [employer] Officer: Daniel Malone MD #### CDP, CP #### [address] [place] [address] [employer] Officer: Kelsie Pedro MDAmbulatory Visit Summaryon [id number] Visit SummaryAmbulatory Visit Summary JACKY GONZALEZ :1955 Visit Date:12/28/2024 Ambulatory Visit Instructions Your Diagnosis Hypertension Class 2 obesity due to excess calories in adult BMI 35.0-35.9,adult Your Care Team Attending Physician - Viral MSN, GENERAL PURCHASING AGENT-Stacia POSADA Primary Care Physician - Viral MSN, GENERAL PURCHASING AGENT-Stacia POSADA This Is Your Medications List hydrochlorothiazide (hydrochlorothiazide 12.5 mg Cap) Contact prescribing physician if questions or concerns apixaban (Eliquis 5 mg oral tablet) aspirin (aspirin 81 mg Oral EC Tab) atorvastatin (atorvastatin 20 mg Tab) betamethasone topical (betamethasone dipropionate topical 0.05% ointment) budesonide (budesonide 3 mg oral delayed release capsule) escitalopram (escitalopram 10 mg Tab) flecainide (flecainide 100 mg Tab) lisinopril (lisinopril 20 mg Tab) lorazepam (Ativan 0.5 mg Tab) meclizine (meclizine 12.5 mg Tab) metoprolol (metoprolol succinate 25 mg ER Tab) Procedures Performed Colonoscopy (01/15/2020), Colectomy (11/28/2018), Cryo cervix 1990's, L retinal detachment [facility] 2013. Discharge Vitals Heart Rate (Peripheral) 62 Respiratory Rate 16 Blood Pressure 144/80 Height 65 in Height 165 cm Weight 216.494 lb Weight 98.2 kg BMI 36.07 What to do next Scheduled Follow-Up Appointments Tuesday 10:40 AM EDT With: GLADYS Conde Tammy L. Where: [facility] [address] [place] [address]- Tuesday 9:30 AM EDT With: Where: [facility] [address] [place] [address]- Tuesday 1:50 PM EDT With: Kemi Greenberg Where: [facility] [address], [address] [place] [address]- Tuesday2025 11:00 AM EST With: GLADYS Conde Tammy L. Where: [facility] [address] [place] [address]- You Need to Schedule the Following Appointments Follow Up with GLADYS Conde Tammy L. When: Within 1 to 2 weeks Comments: chronic care Where: [address] [place] [phone] Medications What How Much When Why Instructions New hydrochlorothiazide (hydrochlorothiazide 12.5 mg Cap) 1 Capsules By Mouth Every day Pickup at [facility]/pharmacy #[id number] Unchanged apixaban (Eliquis 5 mg oral tablet) 180 EA, 0 Refill(s), TAKE 1 TABLET BY MOUTH TWICE A DAY Contact prescribing physician if questions or concerns Unchanged aspirin (aspirin 81 mg Oral EC Tab) 1 Tablets By Mouth Every day Contact prescribing physician if questions or concerns Unchanged atorvastatin (atorvastatin 20 mg Tab) 1 Tablets By Mouth Every day Contact prescribing physician if questions or concerns Unchanged betamethasone topical (betamethasone dipropionate topical 0.05% ointment) 1 Application Topical 2 times a day Contact prescribing physician if questions or concerns Unchanged budesonide (budesonide 3 mg oral delayed release capsule) 3 Capsules By Mouth Once a day (in the morning) Contact prescribing physician if questions or concerns Unchanged escitalopram (escitalopram 10 mg Tab) See instructions TAKE 1.5 TABLETS BY MOUTH DAILY Contact prescribing physician if questions or concerns Unchanged flecainide (flecainide 100 mg Tab) 1 Tablets By Mouth Every 12 hours Contact prescribing physician if questions or concerns Unchanged lisinopril (lisinopril 20 mg Tab) 1 Tablets By Mouth Every day Contact prescribing physician if questions or concerns Unchanged lorazepam (Ativan 0.5 mg Tab) 1 Tablets By Mouth 3 times a day as needed for anxiety Anxiety, generalized duration 30 days Contact prescribing physician if questions or concerns Unchanged meclizine (meclizine 12.5 mg Tab) 1 Tablets By Mouth 3 times a day as needed for for dizziness Contact prescribing physician if questions or concerns Unchanged metoprolol (metoprolol succinate 25 mg ER Tab) 1 Tablets By Mouth Every day Contact prescribing physician if questions or concerns Pharmacy Information [facility]/pharmacy #[id number]: [address] [place], [place] [id number] [phone] Allergies No Known Allergies No Known Medication Allergies Problems Ongoing - Any problem that you are currently receiving treatment for. 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 Atrial fibrillation BMI 35.0-35.9,adult Cerebrovascular small vessel disease Class 2 obesity due to excess calories in adult Cystitis with hematuria Dense breast tissue on mammogram Dizziness Eczema of external ear Edema of optic disc of right eye Encounter for screening for cardiovascular disorders Generalized anxiety disorder Hyperlipemia, mixed Hypertension IBS (irritable bowel syndrome) Kidney stone Left lumbar radiculopathy Left retinal de (more content not included)...[facility] Medicine Office/Clinic Noteon [id number] Medicine Office/Clinic NoteMiravista [facility] Office/Clinic Note Chief Complaint Patient presents today for bp check. The patient reports headaches and elevated blood pressure readings at home. HPI Staff Patient is here for follow up on hypertension. How often are you checking your blood pressure? Daily What are your average readings? 140's/ 90's Are you compliant with your diet? yes Do you exercise? no Are you compliant with your medications? yes Are you having difficulty affording your medications? no Do you have side effects from the medication? no Do you have any of the following symptoms? Chest Pain? no Palpitations? no FERRARA/SOB? no Headache? no Peripheral Edema? no Light Headedness? no History of Present Illness The patient is a 69-year-old female presenting with management of hypertension and obesity. Staff HPI has been reviewed with the patient. The patient reports a history of hypertension with home blood pressure readings consistently in [id number]/90s range, occasionally slightly below 90 diastolic. She experiences headaches, which have been present for the past two days, and denies any chest pain or blurry vision. The patient is not currently on hydrochlorothiazide but is considering its addition to her regimen. 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 She has not called to let them know that her blood pressure has been elevated. The patient has a BMI of 35.0-35.9, indicating Class 2 obesity due to excess caloric intake. She engages in walking for 20 minutes a day, three to four times a week, and has reduced her intake of caffeinated beverages. The patient denies excessive sodium intake and does not consume alcohol or smoke. Review of Systems PHQ Score Initial Depression Screen Score: 0 SCORE - Cardiovascular: Reports headaches. Denies chest pain or blurry vision. - Neurological: Reports headaches for the past two days. - General: Denies excessive sodium intake, alcohol consumption, and smoking. Physical Exam Vitals & Measurements HR: 62(Peripheral) RR: 16 BP: 144/80 SpO2: 99% HT: 165 cm HT: 65 in WT: 98.2 kg WT: 216.494 lb BMI: 36.07 Constitutional: Well-groomed, well-nourished, no signs of acute distress. HEENT: Head normocephalic, sclera is clear. Cardiothoracic: Heart rate and rhythm is regular strong, normal S1 and S2. No murmurs, rubs, or bruits auscultated. No peripheral edema, peripheral pulses +2 Respiratory: Lung sounds are clear throughout, respirations regular nonlabored. Abdomen/GI: Abdomen soft nondistended. Musculoskeletal: Gait is steady, full range of motion. Integument: No rashes or lesions noted to the exposed skin. Psychiatric: Alert and oriented x 3, pleasant, no mood changes. Assessment/Plan 1. Hypertension (I10: Essential (primary) hypertension) The importance of the following were all reviewed with the patient: -Take medications as prescribed. There are simple Lifestyle Modifications that you can do to reduce your blood pressure. -Weight Reduction -Follow the DASH eating plan. -Reduce Sodium (Salt) Intake to 2000mg per day. -Use Moderation when consuming alcohol. - To improve your health we recommend increasing your level of moderate exercise to at least 2.5 hrs per week. Patient did bring in her home blood pressure monitor we did compare with ours and we are getting similar readings. The patient will be started on hydrochlorothiazide to aid in blood pressure control,with instructions to monitor blood pressure at home and report any significant changes. She is advis ed to continue lifestyle modifications, including regular exercise and dietary adjustments, and to follow up with her ship captain to discuss her current regimen and any additional recommendations. 2. Class 2 obesity due to excess calories in adult (E66.09: Other obesity due to excess calories) Calorie restriction along with routine aerobic exercises discussed in order to avoid hypertension, osteoarthritis, metabolic syndrome and/or worsening of chronic underlying disease states. Encouragedto limit sugary drinks, foods high in sodium, as well as alcohol. 3. BMI 35.0-35.9,adult (Z68.35: Body mass index [BMI] 35.0-35.9, adult) see #2 Orders: hydrochlorothiazide, 12.5 mg = 1 cap(s), Oral, Daily, # 90 cap(s), Refills(s) 0, Pharmacy: [facility]/pharmacy #[id number], 165, cm, 12/28/24 10:53:00 EDT, Height/Length Dosing, 98.2, kg, 12/28/24 10:53:00 EDT, Weight Dosing This note was created by the assist of a speech-recognition program although the intention is to generate a document that actually reflects the content of the visit, no guarantees can be provided that every mistake has been identified and corrected by editing. Follow-up With When Contact Information GLADYS Conde Tammy L. Within 1 to [address] [place] [phone] Additional Instructions: chronic care Patient Education Hypertension, Adult Problem Lis (more content not included)...[facility] Comment on above:Result Comment: Electronically Signed By: GLADYS Conde Tammy L.\.br\Date and Time Signed: 12/28/24 12:25 EDTAmbulatory Visit Summaryon [id number] Visit SummaryAmbulatory Visit Summary GONZALEZJACKY :1955 Visit Date:12/21/2024 Ambulatory Visit Instructions Your Diagnosis Hypertension Class 2 obesity due to excess calories in adult BMI 35.0-35.9,adult Your Care Team Attending Physician - GLADYS Conde Tammy L. Primary Care Physician - GLADYS Conde Tammy L. This Is Your Medications List apixaban (Eliquis 5 mg oral tablet) aspirin (aspirin 81 mg Oral EC Tab) atorvastatin (atorvastatin 20 mg Tab) betamethasone topical (betamethasone dipropionate topical 0.05% ointment) budesonide (budesonide 3 mg oral delayed release capsule) escitalopram (escitalopram 10 mg Tab) flecainide (flecainide 100 mg Tab) lisinopril (lisinopril 20 mg Tab) lorazepam (Ativan 0.5 mg Tab) meclizine (meclizine 12.5 mg Tab) metoprolol (metoprolol succinate 25 mg ER Tab) Procedures Performed Colonoscopy (01/15/2020), Colectomy (11/28/2018), Cryo cervix 1990's, L retinal detachment [facility] 2013. Discharge Vitals Heart Rate (Peripheral) 56 Respiratory Rate 16 Blood Pressure 136/80 Height 65 in Height 165 cm Weight 215.171 lb Weight 97.6 kg BMI 35.85 What to do next Scheduled Follow-Up Appointments Tuesday 10:40 AM EDT With: Viral PARKER, Stacia GRAHAM Where: [facility] [address] [place] [address]- Tuesday 9:30 AM EDT With: Where: [facility] [address], [place] [address]- Tuesday 1:50 PM EDT With: Kemi Greenberg Where: [facility] [place] [address], [address] [place] [address]- Tuesday2025 11:00 AM EST With: Viral PARKER, Stacia GRAHAM Where: [facility] [address] [place] [address]- You Need to Schedule the Following Appointments Follow Up with Viral PARKER, Stacia GRAHAM When: In 1 week Comments: BP, bring home BP cuff Where: [address] [place] [phone] Medications What How Much When Why Instructions Unchanged apixaban (Eliquis 5 mg oral tablet) 180 EA, 0 Refill(s), TAKE 1 TABLET BY MOUTH TWICE A DAY Unchanged aspirin (aspirin 81 mg Oral EC Tab) 1 Tablets By Mouth Every day Unchanged atorvastatin (atorvastatin 20 mg Tab) 1 Tablets By Mouth Every day Unchanged betamethasone topical (betamethasone dipropionate topical 0.05% ointment) 1 Application Topical 2 times a day Unchanged budesonide (budesonide 3 mg oral delayed release capsule) 3 Capsules By Mouth Once a day (in the morning) Unchanged escitalopram (escitalopram 10 mg Tab) See instructions TAKE 1.5 TABLETS BY MOUTH DAILY Unchanged flecainide (flecainide 100 mg Tab) 1 Tablets By Mouth Every 12 hours Unchanged lisinopril (lisinopril 20 mg Tab) 1 Tablets By Mouth Every day Unchanged lorazepam (Ativan 0.5 mg Tab) 1 Tablets By Mouth 3 times a day as needed for anxiety Anxiety, generalized duration 30 days Unchanged meclizine (meclizine 12.5 mg Tab) 1 Tablets By Mouth 3 times a day as needed for for dizziness Unchanged metoprolol (metoprolol succinate 25 mg ER Tab) 1 Tablets By Mouth Every day Allergies No Known Allergies No Known Medication Allergies Problems Ongoing - Any problem that you are currently receiving treatment for. 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 Atrial fibrillation BMI 35.0-35.9,adult Cerebrovascular small vessel disease Class 2 obesity due to excess calories in adult Cystitis with hematuria Dense breast tissue on mammogram Dizziness Eczema of external ear Edema of optic disc of right eye Encounter for screening for cardiovascular disorders Generalized anxiety disorder Hyperlipemia, mixed Hypertension IBS (irritable bowel syndrome) Kidney stone Left lumbar radiculopathy Left retinal detachment Low vitamin D level Major depressive disorder, single episode, mild Obesity due to excess calories KEREN (obstructive sleep apnea) Osteopenia of multiple sites Sensory neuropathy Supraventricular tachycardia Ureteral stone with hydronephrosis Historical - Any problem that you are no longer receiving treatment for. Chronic uveitis Herpes zoster Primary ovarian failure Splenic vein thrombosis Patient Survey You may receive a survey via text or e-mail asking about your office visit. Please share your experience with us by completing your survey. We appreciate your feedback and thank you for choosing us for your care. Patient Portal You may access all of your results and other medical record information on our secure patient portal. If you are not signed up for this yet, please contact [employer] at [phone] to get signed up today. Language Infor (more content not included)...[facility] Medicine Office/Clinic Noteon [id number] Medicine Office/Clinic NoteMiravista [facility]al [facility] Medicine Office/Clinic Note Chief Complaint Patient presents today for bp check. The patient presents for blood pressure management and monitoring. [facility] Staff Patient is here for follow up on hypertension. How often are you checking your blood pressure? Daily What are your average readings?140-150/90-100 Are you compliant with your diet? yes Do you exercise? yes Are you compliant with your medications? yes Are you having difficulty affording your medications? no Do you have side effects from the medication? no Do you have any of the following symptoms? Chest Pain? no Palpitations? no FERRARA/SOB? no Headache? yes Peripheral Edema? no Light Headedness? no History of Present Illness The patient is a 69-year-old female presenting with hypertension management and monitoring. Staff HPI has been reviewed with the patient. Her blood pressure readings at home have been inconsistent, with occasional higher readings in the morning before medication intake. She is currently on 20 mg of lisinopril, which has helped improve her blood pressure control. She did not bring her blood pressure machine in with her to compare the readings. Readings are higher in the morning prior to her taking the medications. The patient reports a history of headaches, which have improved with better blood pressure control.She denies experiencing chest pain or blurry vision. Review of Systems PHQ Score Initial Depression Screen Score: 0 SCORE - Neurological: Reports improvement in headaches. Denies blurry vision. - Cardiovascular: Denies chest pain. Physical Exam Vitals & Measurements HR: 56(Peripheral) RR: 16 BP: 136/80 SpO2: 97% HT: 165 cm HT: 65 in WT: 97.6 kg WT: 215.171 lb BMI: 35.85 Constitutional: Well-groomed, well-nourished, no signs of acute distress. HEENT: Head normocephalic, sclera is clear. Cardiothoracic: Heart rate and rhythm is regular strong, normal S1 and S2. No murmurs, rubs, or bruits auscultated. No peripheral edema, peripheral pulses +2 Respiratory: Lung sounds are clear throughout, respirations regular nonlabored. Abdomen/GI: Abdomen soft nondistended. Musculoskeletal: Gait is steady, full range of motion. Integument: No rashes or lesions noted to the exposed skin. Psychiatric: Alert and oriented x 3, pleasant, no mood changes. Assessment/Plan 1. Hypertension (I10: Essential (primary) hypertension) The importance of the following were all reviewed with the patient: -Take medications as prescribed. There are simple Lifestyle Modifications that you can do to reduce your blood pressure. -Weight Reduction -Follow the DASH eating plan. -Reduce Sodium (Salt) Intake to 2000mg per day. -Use Moderation when consuming alcohol. - To improve your health we recommend increasing your level of moderate exercise to at least 2.5 hrs per week. In the office today blood pressure was within the normal limits even on recheck. Will have her comeback next week and have her bring her blood pressure cuff with her so we can make a comparison of the manual blood pressure with her machine. If consistent we will go ahead and put her on the hydrochlorothiazide. 2. Class 2 obesity due to excess calories in adult (E66.09: Other obesity due to excess calories) Calorie restriction along with routine aerobic exercises discussed in order to avoid hypertension, osteoarthritis, metabolic syndrome and/or worsening of chronic underlying disease states. Encouragedto limit sugary drinks, foods high in sodium, as well as alcohol. 3. BMI 35.0-35.9,adult (Z68.35: Body mass index [BMI] 35.0-35.9, adult) see #2 This note was created by the assist of a speech-recognition program although the intention is to generate a document that actually reflects the content of the visit, no guarantees can be provided that every mistake has been identified and corrected by editing. 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 Atrial fibrillation BMI 35.0-35.9,adult Cerebrovascular small vessel disease Class 2 obesity due to excess calories in adult Cystitis with hematuria Dense breast tissue on mammogram Dizziness Eczema of external ear Edema of optic disc of right eye Encounter for screening for cardiovascular disorders Generalized anxiety disorder Hyperlipemia, mixed Hypertension IBS (irritable bowel syndrome) Kidney stone Left lumbar radiculopathy Left retinal detachment Low vitamin D level Major depressive disorder, single episode, mild Obesity due to excess calories KEREN (obstructive sleep apnea) Osteopenia of multiple sites Sensory neuropathy Supraventricular tachycardia Ureteral stone with hydronep (more content not included)...[facility]:Result Comment: Electronically Signed By: Viral PARKER, Stacia GRAHAM\.br\Date and Time Signed: 12/21/24 10:09 EDTUS Renalon [id number] RenalExam Date/Time: 12/18/2024 09:11 EDT Reason for Exam: Kidney stone;Other (please specify) Report IMPRESSION: NEGATIVE LIMITED RENAL ULTRASOUND. EXAM: US Renal DATE: 12/18/2024 8:52 AM CLINICAL HISTORY: Kidney stone. Technologist Comments: f/u right kidney stone removed a couple weeks ago. COMPARISON: KUB 12/18/[address] urogram 11/29/2024. TECHNIQUE: Transabdominal ultrasound of the kidneys was performed. FINDINGS: The study is mild to moderately limited by the patient's body habitus, with nonvisualization of a small right lower pole right renal calculus. Both kidneys are normal in size, position and morphology, with renal cortex echogenicity within normal limits. There is no hydronephrosis, abnormal perinephric collections, solid or cystic renal masses identified. Right Kidney Length: 7.9 cm Cortex: 1.0 cm Left Kidney Length: 9.6 cm Cortex: 0.9 cm Ordering Provider: MAITE MORAN FINAL REPORT Dictated: 12/18/2024 3:05 pm Claude Domínguez MD Signed (Electronic Signature): 12/18/2024 3:05 pm Signed by: Claude Domínguez MD Transcribed by: NICOLAS Technologist: [facility]XR Abdomen 1 Viewon [id number] Abdomen 1 ViewExam Date/Time: 12/18/2024 09:12 EDT Reason for Exam: N13.2;Kidney stone Report IMPRESSION: SMALL RIGHT LOWER POLE RENAL CALCULUS. EXAM: XR Abdomen 1 View DATE: 12/18/2024 9:07 AM CLINICAL HISTORY: Kidney stone, N13.2. COMPARISON: CT urogram 11/29/2024. TECHNIQUE: Two supine radiographs of the abdomen and pelvis were obtained. FINDINGS: An approximately 5 x 2 mm right lower pole renal calculus is noted.. There are no significant calculi identified elsewhere overlying the kidneys, expected courses of either ureter or bladder. Small phleboliths are again noted in the pelvis. The bowel gas pattern is unremarkable. The visualized lung bases are clear. Ordering Provider: MAITE MORAN FINAL REPORT Dictated: 12/18/2024 3:07 pm Claude Domínguez MD Signed (Electronic Signature): 12/18/2024 3:07 pm Signed by: Claude Domínguez MD Transcribed by: NICOLAS Technologist: [facility]Fisher[facility] Medical CenterAmbulatory Visit Summaryon [id number] Visit SummaryAmbulatory Visit Summary JACKY GONZALEZ :1955 Visit Date:12/14/2024 Ambulatory Visit Instructions Your Diagnosis Hypertension Class 2 obesity due to excess calories in adult BMI 35.0-35.9,adult Your Care Team Attending Physician - GLADYS Conde Tammy L. Primary Care Physician - GLADYS Conde Tammy L. This Is Your Medications List lisinopril (lisinopril 20 mg Tab) Contact prescribing physician if questions or concerns apixaban (Eliquis 5 mg oral tablet) aspirin (aspirin 81 mg Oral EC Tab) atorvastatin (atorvastatin 20 mg Tab) betamethasone topical (betamethasone dipropionate topical 0.05% ointment) budesonide (budesonide 3 mg oral delayed release capsule) escitalopram (escitalopram 10 mg Tab) flecainide (flecainide 100 mg Tab) lorazepam (Ativan 0.5 mg Tab) meclizine (meclizine 12.5 mg Tab) metoprolol (metoprolol succinate 25 mg ER Tab) Procedures Performed Colonoscopy (01/15/2020), Colectomy (11/28/2018), Cryo cervix 1989's, L retinal detachment [facility] 2013. Discharge Vitals Heart Rate (Peripheral) 58 Respiratory Rate 16 Blood Pressure 132/90 Height 165 cm Height 65 in Weight 97.2 kg Weight 214.289 lb BMI 35.7 What to do next Scheduled Follow-Up Appointments Tuesday 9:00 AM EDT With: Where: [facility] Tuesday 9:30 AM EDT With: Where: [facility] Tuesday 9:00 AM EDT With: Vrial PARKER, Stacia GRAHAM Where: [facility] [address] [place] [address]- Tuesday 9:30 AM EDT With: Where: [facility] [address] [place] [address]- Tuesday 1:50 PM EDT With: Kemi Greenberg Where: [facility] [place] [address], [address] [place] [address]- Tuesday2025 11:00 AM EST With: Viral PARKER, BRUNO-Stacia POSADA Where: [facility] [address] [place] [address]- You Need to Schedule the Following Appointments Follow Up with Viral PARKER, BRUNO-ALBINO, Stacia Mcmahan When: In 1 week Where: [address] [place] [phone] Medications What How Much When Why Instructions Changed lisinopril (lisinopril 20 mg Tab) 1 Tablets By Mouth Every day Pickup at [facility]/pharmacy #[id number] Unchanged apixaban (Eliquis 5 mg oral tablet) 180 EA, 0 Refill(s), TAKE 1 TABLET BY MOUTH TWICE A DAY Contact prescribing physician if questions or concerns Unchanged aspirin (aspirin 81 mg Oral EC Tab) 1 Tablets By Mouth Every day Contact prescribing physician if questions or concerns Unchanged atorvastatin (atorvastatin 20 mg Tab) 1 Tablets By Mouth Every day Contact prescribing physician if questions or concerns Unchanged betamethasone topical (betamethasone dipropionate topical 0.05% ointment) 1 Application Topical 2 times a day Contact prescribing physician if questions or concerns Unchanged budesonide (budesonide 3 mg oral delayed release capsule) 3 Capsules By Mouth Once a day (in the morning) Contact prescribing physician if questions or concerns Unchanged escitalopram (escitalopram 10 mg Tab) See instructions TAKE 1.5 TABLETS BY MOUTH DAILY Contact prescribing physician if questions or concerns Unchanged flecainide (flecainide 100 mg Tab) 1 Tablets By Mouth Every 12 hours Contact prescribing physician if questions or concerns Unchanged lorazepam (Ativan 0.5 mg Tab) 1 Tablets By Mouth 3 times a day as needed for anxiety Anxiety, generalized duration 30 days Contact prescribing physician if questions or concerns Unchanged meclizine (meclizine 12.5 mg Tab) 1 Tablets By Mouth 3 times a day as needed for for dizziness Contact prescribing physician if questions or concerns Unchanged metoprolol (metoprolol succinate 25 mg ER Tab) 1 Tablets By Mouth Every day Contact prescribing physician if questions or concerns Pharmacy Information [facility]/pharmacy #[id number]: [address], [place] [id number] [phone] Allergies No Known Allergies No Known Medication Allergies Problems Ongoing - Any problem that you are currently receiving treatment for. 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 Atrial fibrillation BMI 35.0-35.9,adult Cerebrovascular small vessel disease Class 2 obesity due to excess calories in adult Cystitis with hematuria Dense breast tissue on mammogram Dizziness Eczema of external ear Edema of optic disc of right eye Encounter for screening for cardiovascular disorders Generalized anxiety disorder Hyperlipemia, mixed Hypertension IBS (irritable bowel syndrome) Kidney stone Left lumbar radiculopathy Left retinal detachment Low vitamin D level Major depressive disorder, single episode, mild Obesity due to exce (more content not included)...[facility] Medicine Office/Clinic Noteon [id number] Medicine Office/Clinic NoteFaboston university medical [facility] hospital Medicine Office/Clinic Note Chief Complaint Patient presents today for 1 week f/u for hypertension. The patient presents for management of hypertension. HPI Staff Patient is here for follow up on hypertension. How often are you checking your blood pressure? Daily What are your average readings? 150/100 Are you compliant with your diet? yes Do you exercise? yes Are you compliant with your medications? yes Do you have side effects from the medication? no Do you have any of the following symptoms? Chest Pain? yes Palpitations? no FERRARA/SOB? no Headache? yes Peripheral Edema? no Light Headedness? no History of Present Illness The patient is a 69-year-old female presenting with hypertension management. Staff HPI has been reviewed with the patient. She reports improvement in symptoms such as headaches and chest sensations after increasing lisinopril to 15 mg, but blood pressure remains suboptimal. She visited the emergency room recently due to concerns about her blood pressure, where tests indicated no immediate risk of stroke. There is a consideration to add hydrochlorothiazide if blood pressure does not improve, and a combination pill with lisinopril may be used if covered by insurance. The patient has a history of kidney stones and has been advised to maintain adequate hydration, consuming at least a liter of water daily. She is also advised to manage stress and ensure adequate sleep, as these factors may influence her blood pressure. Review of Systems PHQ Score Initial Depression Screen Score: 0 SCORE - Cardiovascular: Reports improvement in headaches and chest sensations. Denies swelling. - General: Reports stress and difficulty managing it. Physical Exam Vitals & Measurements HR: 58(Peripheral) RR: 16 BP: 132/90 SpO2: 97% HT: 165 cm HT: 65 in WT: 97.2 kg WT: 214.289 lb BMI: 35.7 Constitutional: Well-groomed, well-nourished, no signs of acute distress. HEENT: Head normocephalic, sclera is clear. Cardiothoracic: Heart rate and rhythm is regular strong, normal S1 and S2. No murmurs, rubs, or bruits auscultated. No peripheral edema, peripheral pulses +2 Respiratory: Lung sounds are clear throughout, respirations regular nonlabored. Abdomen/GI: Abdomen soft nondistended. Musculoskeletal: Gait is steady, full range of motion. Integument: No rashes or lesions noted to the exposed skin. Psychiatric: Alert and oriented x 3, pleasant, no mood changes. Assessment/Plan 1. Hypertension (I10: Essential (primary) hypertension) The importance of the following were all reviewed with the patient: -Take medications as prescribed. There are simple Lifestyle Modifications that you can do to reduce your blood pressure. -Weight Reduction -Follow the DASH eating plan. -Reduce Sodium (Salt) Intake to 2000mg per day. -Use Moderation when consuming alcohol. - To improve your health we recommend increasing your level of moderate exercise to at least 2.5 hrs per week. The patient is currently on lisinopril, which has been increased to 20 mg daily to better manage her blood pressure. A follow-up is scheduled in one week to assess the effectiveness of this adjustment. If blood pressure remains elevated, hydrochlorothiazide may be added, and a combination pill withlisinopril could be considered if covered by insurance. 2. Class 2 obesity due to excess calories in adult (E66.09: Other obesity due to excess calories) Calorie restriction along with routine aerobic exercises discussed in order to avoid hypertension, osteoarthritis, metabolic syndrome and/or worsening of chronic underlying disease states. Encouragedto limit sugary drinks, foods high in sodium, as well as alcohol. 3. BMI 35.0-35.9,adult (Z68.35: Body mass index [BMI] 35.0-35.9, adult) see #2 Orders: lisinopril, 20 mg = 1 tab(s), Oral, Daily, # 90 tab(s), Refills(s) 0, Pharmacy: [facility]/pharmacy #[id number], cm, 12/14/24 10:58:00 EDT, Height/Length Dosing, 97.2, kg, 12/14/24 10:58:00 EDT, Weight Dosing This note was created by the assist of a speech-recognition program although the intention is to generate a document that actually reflects the content of the visit, no guarantees can be provided that every mistake has been identified and corrected by editing. 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 Atrial fibrillation BMI 35.0-35.9,adult Cerebrovascular small vessel disease Class 2 obesity due to excess calories in adult Cystitis with hematuria Dense breast tissue on mammogram Dizziness Eczema of external ear Edema of optic disc of right eye Encounter for screening for cardiovascular disorders Generalized anxiety disorder Hyperlipemia, mixed H (more content not included)...[facility] EastComment on above:Result Comment: Electronically Signed By: Viral PARKER, Stacia GRAHAM\.br\Date and Time Signed: 12/14/24 12:26 EDTCBC with Auto Differentialon [id number] (Bld) [#/Vol]0.04 10*3/uLBon [facility]ours Mer[facility] Health Basophils/100 WBC (Bld)1 %0 - 2 %[facility] HealthEosinophils (Bld) [#/Vol]0.13 10*3/uLBon Secours Mercy HealthEosinophils/100 WBC (Bld)2 %1 - 4 % [facility] HealthErythrocyte distribution width (RBC) [Ratio]17.2 %High 11.8 - 14.4 %[facility] HealthHematocrit (Bld) [Volume fraction]36.8 % 36.3 - 47.1 %[facility] HealthHemoglobin (Bld) [Mass/Vol]12.2 g/dL11.9 - 15.1 g/dLBon [facility] HospitalImmature granulocytes (Bld) [#/Vol]0.04 10*3/uL Bon SecBucyrus Community HospitalImmature granulocytes/100 WBC (Bld)1 %Htgl4Mak [facility] HospitalInterpretation and review of laboratory resultsAbnormalBon [facility] HospitalLymphocytes/100 WBC (Bld)25 %24 - 43 %[facility] Lymphocytes/100 WBC (Bld)1.83 %[facility] PatrickH (RBC) [Entitic mass] 27.5 pg25.2 - 33.5 pgBon [facility] HospitalHC (RBC) [Mass/Vol]33.2 g/dL28.4 - 34.8 g/dLBon SecSt. Rita's HospitalV (RBC) [Entitic vol]83.1 fL82.6 - 102.9 fL [facility] HospitalMonocytes/100 WBC (Bld)6 %3 - 12 %[facility] HospitalMonocytes/100 WBC (Bld)0.44 %[facility] HospitalNeutrophils/100 WBC (Bld)65 %36 - 65 %[facility] HospitalNucleated RBC/100 WBC (Bld) [Ratio]0.0 %0.0 per 100 WBCBon [facility] HospitalPlatelet mean volume (Bld) [Entitic vol]8.8 fL8.1 - 13.5 fLCarilion Roanoke Memorial HospitalPlatelets (Bld) [#/Vol]227 10*3/uLBon [facility] F[facility] HospitalRBC (Bld) [#/Vol]4.43 10*6/uL3.95 - 5.11 m/uLBon [facility] HospitalSegmented neutrophils/100 WBC (Bld)4.91 %[facility] HospitalWBC other (Bld) [#/Vol]7.4Bon SecAsc[facility] Saint [facility] Hospital CBC with Diffon [id number]. Basophil0.04 k/uLNormal0.00-0.20MerStamford HospitalComment on above:Performed By: #### TROPI, CDP, CP, MG #### [address] [place] [address] [employer] Officer: MDAbs. ShabanaImm.Granulocyte0.04 k/uLNormal0.00-0.30[facility] HospitalComment on above:Performed By: #### TROPI, CDP, CP, MG #### [address] [place] [address] [employer] Officer: Karli Donald.Neutrophil (Seg)4.91 k/uLNormal1.50-8.10[facility] HospitalComment on above:Performed By: #### TROPI, CDP, CP, MG #### [address] [place] [address] [employer] Officer: Kelsie Pedro MDBasophils/100 WBC (Bld)1 %Normal0-2MOhioHealth Dublin Methodist Hospital HospitalComment on above:Performed By: #### TROPI, CDP, CP, MG #### [address] [place] [address] [employer] Officer: Kelsie Pedro MDEosinophils (Bld) [#/Vol]0.13 10*3/uLNormal 0.00-0.44MerLancaster Municipal Hospital HospitalComment on above:Performed By: #### TROPI, CDP, CP, MG #### [address] [place], [place] [address] [employer] Officer: CHINO Donaldosinophils/100 WBC (Bld)2 %Normal1-4[facility] HospitalComment on above:Performed By: #### TROPI, CDP, CP, MG #### [address] [place] [address] [employer] Officer: Kelsie Pedro MDErythrocyte distribution width (RBC) [Ratio]17.2 % High11.8-14.4MerLancaster Municipal Hospital HospitalComment on above:Performed By: #### TROPI, CDP, CP, MG #### [address] [place], [facility]83 [employer] Officer: Kelsie Pedro MDHematocrit (Bld) [Volume fraction]36.8 %Normal 36.3-47.1MChildren's Hospital of ColumbusComment on above:Performed By: #### TROPI, CDP, CP, MG #### [address] [place], [facility]83 [employer] Officer: Kelsie Pedro MDHemoglobin (Bld) [Mass/Vol]12.2 g/dLNormal 11.9-15.1MChildren's Hospital of ColumbusComment on above:Performed By: #### TROPI, CDP, CP, MG #### [address] [place] [id number] [employer] Officer: Kelsie Pedro MDImmature granulocytes/100 WBC (Bld)1 %Flqc0SkoboCommunity Regional Medical CenterComment on above:Performed By: #### TROPI, CDP, CP, MG #### [address] [place], [place] [address] [employer] Officer: Kelsie Pedro MDLymphocytes (Bld) [#/Vol]1.83 10*3/uLNormal 1.10-3.70[facility] Medical CenterComment on above:Performed By: #### TROPI, CDP, CP, MG #### [address] [place], [facility]83 [employer] Officer: Aaron Donaldmphocytes/100 WBC (Bld)25 %Tkkvbj36-49PldaeCommunity Regional Medical CenterComment on above:Performed By: #### TROPI, CDP, CP, MG #### [address] [place], [facility]83 [employer] Officer: OCTAVIA DonaldCH (RBC) [Entitic mass]27.5 utOndvuj66.2-33.5 [facility] HospitalComment on above:Performed By: #### TROPI, CDP, CP, MG #### [address] [place], [place] [id number] [employer] Officer: OCTAVIA DonaldCHC (RBC) [Mass/Vol]33.2 g/tVXbadqr52.4-34.8[facility] Medical CenterComment on above:Performed By: #### TROPI, CDP, CP, MG #### [address] [place] [address] [employer]: OCTAVIA DonaldCV (RBC) [Entitic vol]83.1 xTAwvkid16.6-102.9 [facility] Medical CenterComment on above:Performed By: #### TROPI, CDP, CP, MG #### [address] [place], [facility]83 [employer] Officer: OCTAVIA Donaldonocytes (Bld) [#/Vol]0.44 10*3/uLNormal0.10-1.20 [facility] Medical CenterComment on above:Performed By: #### TROPI, CDP, CP, MG #### [address] [place] [address] [employer]: OCTAVIA Donaldonocytes/100 WBC (Bld)6 %Normal3-12[facility] Medical CenterComment on above:Performed By: #### TROPI, CDP, CP, MG #### [address] [place], [place] [id number] [employer] Officer: Kelsie Pedro MDNeutrophil (Seg)65 %Lyckok06-01PxhncCommunity Regional Medical CenterComment on above:Performed By: #### TROPI, CDP, CP, MG #### [address] [place], [place] [id number] [employer] Officer: CARIE Donald Automated0.0 per 100 WBCNormal0.0[facility] Medical CenterComment on above:Performed By: #### TROPI, CDP, CP, MG #### [address] [place], [place] [id number] [employer]: Sammy Donald mean volume (Bld) [Entitic vol]8.8 fL Normal8.1-13.5[facility] Medical CenterComment on above:Performed By: #### TROPI, CDP, CP, MG #### [address] [place] [address] [employer]: Feliz Donald (Bld) [#/Vol]227 10*3/mQTnxvdy461-988 [facility] Medical CenterComment on above:Performed By: #### TROPI, CDP, CP, MG #### [address] [place], [place] [address] [employer] Officer: IVAN Donald (Bld) [#/Vol]4.43 10*6/uLNormal3.95-5.11[facility] Medical CenterComment on above:Performed By: #### TROPI, CDP, CP, MG #### [address] [place], [place] [address] [employer] Officer: PETER Donald (Bld) [#/Vol]7.4 10*3/uLNormal3.5-11.3MChildren's Hospital of ColumbusComment on above:Performed By: #### TROPI, CDP, CP, MG #### [address] [place], [facility]83 [employer] Officer: ANAHY Donalderen [id number]/Globulin [Mass ratio]1.5 {ratio}1.0 - 2.5Bon [facility] HospitalALP [Catalytic activity/Vol]103 U/L35 - 104 U/LBon [facility] Flower HospitalEst, Glom Filt Rate64- PINFBon Prom[facility]ica Flower HospitalComment on above: These results are not intended for use in patients <18 years of age. eGFR results are calculated without a race factor using the 2020 CKD-EPI equation. Careful clinical correlation is recommended, particularly when comparing to results calculated using previous equations. The CKD-EPI equation is less accurate in patients with extremes of muscle mass, extra-renal metabolism of creatine, excessive creatine ingestion, or following therapy that affects renal tubular secretion. Interpretation and review of laboratory resultsAbnormalBon [facility] Urea nitrogen/Creatinine [Mass ratio]11 mg/mg9 - 20Bon [facility] HospitalCT HEAD WO CONTRASTon [id number] HEAD WO CONTRASTEXAM: CT Head Without Intravenous Contrast EXAM DATE/TIME: 12/09/2024 12:30 pm CLINICAL HISTORY: ORDERING SYSTEM PROVIDED HISTORY: HEAD PRESSURE, htn TECHNOLOGIST PROVIDED HISTORY: HEAD PRESSURE, htn Decision Support Exception - unselect if not a suspected or confirmed emergency medical condition->Emergency Medical Condition (MA) TECHNIQUE: Axial computed tomography images of the head/brain without intravenous contrast. This CT exam was performed using one or more of the following dose reduction techniques: automated exposure control, adjustment of the mA and/or kV according to patient size, and/or use of iterative reconstruction technique. COMPARISON: No relevant prior studies available. FINDINGS: Brain: No evidence of acute intracranial process. No acute ischemia. No mass or mass effect. No acute intracranial hemorrhage. Mild periventricular deep white matter hypodensity consistent with [...] vessel ischemic deep white matter disease. 3. Small amount of layering fluid within the right maxillary sinus could be a sign of mild acute sinusitis. Interpreted by: Jarred Wen MD Signed by: Jarred Wen MD 12/09/24 Final resultNormalMercy The Institute Of LivingCT Head WO contraston 12-09-2024 1. No evidence of acute intracranial process. 2. Findings of presumed mild small vessel ischemic deep white matter disease. 3. Small amount of layering fluid within the right maxillary sinus could be a sign of mild acute sinusitis. [facility] CONSOLIDATED EXAM: CT Head Without Intravenous Contrast EXAM DATE/TIME: 12/09/2024 12:30 pm CLINICAL HISTORY: ORDERING SYSTEM PROVIDED HISTORY: HEAD PRESSURE, htn TECHNOLOGIST PROVIDED HISTORY: HEAD PRESSURE, htn Decision Support Exception - unselect if not a suspected or confirmed emergency medical condition->Emergency Medical Condition (MA) TECHNIQUE: Axial computed tomography images of the head/brain without intravenous contrast. This CT exam was performed using one or more of the following dose reduction techniques: automated exposure control, adjustment of the mA and/or kV according to patient size, and/or use of iterative reconstruction technique. COMPARISON: No relevant prior studies available. FINDINGS: Brain: No evidence of acute intracranial process. No acute ischemia. No mass or mass effect. No acute intracranial hemorrhage. Mild periventricular deep white matter hypodensity consistent with small vessel ischemic deep white matter disease. Ventricles: No acute findings. No ventriculomegaly. Bones/joints: No acute findings. No acute fracture. Soft tissues: No acute findings. Sinuses: Small amount of layering fluid within the right maxillary sinus could be a sign of mild acute sinusitis. Mastoid air cells: Unremarkable as visualized. No mastoid effusion. [facility] Jarred Peralta MD - 12/09/2024 EXAM: CT Head Without Intravenous Contrast EXAM DATE/TIME: 12/09/2024 12:30 pm CLINICAL HISTORY: ORDERING SYSTEM PROVIDED HISTORY: HEAD PRESSURE, htn TECHNOLOGIST PROVIDED HISTORY: HEAD PRESSURE, htn Decision Support Exception - unselect if not a suspected or confirmed emergency medical condition->Emergency Medical Condition (MA) TECHNIQUE: Axial computed tomography images of the head/brain without intravenous contrast. This CT exam was performed using one or more of the following dose reduction techniques: automated exposure control, adjustment of the mA and/or kV according to patient size, and/or use of iterative reconstruction technique. COMPARISON: No relevant prior studies available. FINDINGS: Brain: No evidence of acute intracranial process. No acute ischemia. No mass or mass effect. No acute intracranial hemorrhage. Mild periventricular deep white matter hypodensity consistent with [...] vessel ischemic deep white matter disease. 3. Small amount of layering fluid within the right maxillary sinus could be a sign of mild acute sinusitis. [facility] HospitalRadiology Study observation (narrative)[facility] Head WO contrastOrdered By: Jarred Wen on [id number] Fair [facility]aks Hospital Work Phone: Comp Metabolic Profon [id number] [Mass/Vol]4.0 g/dLNormal3.5-5.2Bon [facility] Ohioment on above:Performed By: #### TROPI, CDP, CP, MG #### [address] [place], [place] [id number] [employer] Officer: Kelsie Pedro MDALT [Catalytic activity/Vol]13 U/KBaivvv75-08Zlj [facility] on above:Performed By: #### TROPI, CDP, CP, MG #### [address] [place] [address] [employer] Officer: Rey Donald gap [Moles/Vol]13 mmol/LNormal9-16Bon [facility] on above:Performed By: #### TROPI, CDP, CP, MG #### [address] [place] [address] [employer] Officer: Kelsie Pedro MDAST [Catalytic activity/Vol]18 U/FPbzmia79-09Uai [facility] on above:Performed By: #### TROPI, CDP, CP, MG #### [address] [place], [facility]83 [employer] Officer: Kelsie Pedro MDBilirubin [Mass/Vol]0.9 mg/dLNormal0.00-1.20Bon [facility] on above:Performed By: #### TROPI, CDP, CP, MG #### [address] [place], [facility]83 [employer] Officer: ANAHY Donaldalcium [Mass/Vol]8.5 mg/dLLow8.6-10.4Bon [facility] on above:Performed By: #### TROPI, CDP, CP, MG #### [address] [place], [place] [address] [employer] Officer: ANAHY Donaldhloride [Moles/Vol]102 mmol/QKftwnz42-237Tew [facility] on above:Performed By: #### TROPI, CDP, CP, MG #### [address] [place], [facility]83 [employer] Officer: ANAHY DonaldO2 [Moles/Vol]23 mmol/JXelmpb26-61Rvt [facility] on above:Performed By: #### TROPI, CDP, CP, MG #### [address] [place], [facility]83 [employer] Officer: ANAHY Donaldreatinine [Mass/Vol]1.0 mg/dLHigh0.50-0.90Bon [facility] on above:Performed By: #### TROPI, CDP, CP, MG #### [address] [place], [facility]83 [employer] Officer: Kelsie Pedro MDGlucose [Mass/Vol]108 mg/oFXebo88-59Ojb [facility] on above:Performed By: #### TROPI, CDP, CP, MG #### [address] [place], [facility]83 [employer] Officer: JOCELYNN Donaldotassium [Moles/Vol]3.3 mmol/LLow3.7-5.3Bon [facility] on above:Performed By: #### TROPI, CDP, CP, MG #### [address] [place], [place] [address] [employer] Officer: Kelsie Pedro MDProtein [Mass/Vol]6.7 g/dLNormal6.6-8.7Bon [facility] on above:Performed By: #### TROPI, CDP, CP, MG #### [address] [place] [id number] [employer] Officer: Kelsie Pedro MDSodium [Moles/Vol]138 mmol/GCmjpis029-576Glx [facility] on above:Performed By: #### TROPI, CDP, CP, MG #### [address] [place], [facility]83 [employer] Officer: Kelsie Pedro MDUrea nitrogen [Mass/Vol]11 mg/dLNormal8-23Bon [facility] on above:Performed By: #### TROPI, CDP, CP, MG #### [address] [place], [place] [address] [employer] Officer: Kelsie Pedro MDAlbumin/Glob Ratio1.8Zfgtgu1.0-2.5[facility] on above:Performed By: #### TROPI, CDP, CP, MG #### [address] [place], [place] [address] [employer] Officer: Loan Donaldkaline Valp442 U/CIpkcrv21-690SvolaUniversity Hospitals Geauga Medical Center on above:Performed By: #### TROPI, CDP, CP, MG #### [address] [place], [place] [address] [employer] Officer: Kelsie Pedro MDBUN/CRE Syhls43Dejuok4-60Zrqws [facility] Comment on above:Performed By: #### TROPI, CDP, CP, MG #### [address] [place] [address] [employer] Officer: Kelsie Pedro MDGFR/1.73 sq M.predicted among non-blacks MDRD (S/P/Bld) [Vol rate/Area]64 mL/min/{1.73_m2}Normal>60[facility] Comment on above:Result Comment: These results are not intended for use in patients <18 years of age. eGFR results are calculated without a race factor using the 2020 CKD-EPI equation. Careful clinical correlation is recommended, particularly when comparing to results calculated using previous equations. The CKD-EPI equation is less accurate in patients with extremes of muscle mass, extra-renal metabolism of creatine, excessive creatine ingestion, or following therapy that affects renal tubular secretion.Performed By: #### TROPI, CDP, CP, MG #### [address] [place] [address] [employer] Officer: Leonor Donaldgnesiumon 80-24-5565Pcdojsyep [Mass/Vol]2.1 mg/dLNormal1.6-2.4Bon [facility] HospitalComment on above:Performed By: #### TROPI, CDP, CP, MG #### [address] [place] [address] [employer] Officer: Kelsie Pedro MDNo Panel Informationon 17-91-2461Gjc [facility] HospitalPortable XR Chest AP single viewon . No acute process. MHPN RIS CONSOLIDATEDEXAM: 1 VIEW XRAY OF THE CHEST 12/09/2024 12:22:34 PM COMPARISON: 04/03/2023 CLINICAL HISTORY: Chest Pain. FINDINGS: LUNGS AND PLEURA: No focal pulmonary opacity. No pulmonary edema. No pleural effusion. No pneumothorax. HEART AND MEDIASTINUM: No acute abnormality of the cardiac and mediastinal silhouettes. BONES AND SOFT TISSUES: No acute osseous abnormality. MHPN Dale Perez MD - 12/09/2024 EXAM: 1 VIEW XRAY OF THE CHEST 12/09/2024 12:22:34 PM COMPARISON: 04/03/2023 CLINICAL HISTORY: Chest Pain. FINDINGS: LUNGS AND PLEURA: No focal pulmonary opacity. No pulmonary edema. No pleural effusion. No pneumothorax. HEART AND MEDIASTINUM: No acute abnormality of the cardiac and mediastinal silhouettes. BONES AND SOFT TISSUES: No acute osseous abnormality. IMPRESSION: 1. No acute process. [facility] HospitalRadiology Study observation (narrative)[facility] [employer] CoHenrico Doctors' Hospital—Parham CampusPortable XR Chest AP single viewOrdered By: Dale Darnell on 12-09-2024 [facility] Work Phone: Troponinon 60-06-4584Sduaifzt I.cardiac High sensitivity method [Mass/Vol]12 ng/L0 - 14 ng/LBon [facility] HospitalComment on above:High Sensitivity Troponin values cannot be compared with other Troponin methodologies.Troponin, High Sens12 ng/LNormal0-14[facility] Medical CenterComment on above:Result Comment: High Sensitivity Troponin values cannot be compared with other Troponin methodologies.Performed By: #### CEA #### [facility] [address] [place] [address] [employer] Officer: Daniel Malone MD #### REY, CP #### [facility] [address] [place] [address] [employer] Officer: EDILBERTO Donald CHEST PORTABLEon 28-86-2743PV CHEST PORTABLE EXAM: 1 VIEW XRAY OF THE CHEST 12/09/2024 12:22:34 PM COMPARISON: 04/03/2023 CLINICAL HISTORY: Chest Pain. FINDINGS: LUNGS AND PLEURA: No focal pulmonary opacity. No pulmonary edema. No pleural effusion. No pneumothorax. HEART AND MEDIASTINUM: No acute abnormality of the cardiac and mediastinal silhouettes. BONES AND SOFT TISSUES: No acute osseous abnormality. IMPRESSION: 1. No acute process. Interpreted by: Dale Darnell MD Signed by: Dale Darnell MD 12/09/24 Final resultNormalMercy Tevin HospitalAmbulatory Visit Summaryon 12-07-2024 Ambulatory Visit SummaryAmbulatory Visit Summary JACKY GONZALEZ :1955 Visit Date:12/07/2024 Ambulatory Visit Instructions Your Diagnosis Hypertension Class 2 obesity due to excess calories in adult BMI 35.0-35.9,adult Your Care Team Attending Physician - GLADYS Conde Tammy L. Primary Care Physician - GLADYS Conde Tammy L. This Is Your Medications List lisinopril (lisinopril 10 mg Tab) Contact prescribing physician if questions or concerns apixaban (Eliquis 5 mg oral tablet) aspirin (aspirin 81 mg Oral EC Tab) atorvastatin (atorvastatin 20 mg Tab) betamethasone topical (betamethasone dipropionate topical 0.05% ointment) budesonide (budesonide 3 mg oral delayed release capsule) escitalopram (escitalopram 10 mg Tab) flecainide (flecainide 100 mg Tab) lorazepam (Ativan 0.5 mg Tab) meclizine (meclizine 12.5 mg Tab) metoprolol (metoprolol succinate 25 mg ER Tab) Procedures Performed Colonoscopy (01/15/2020), Colectomy (11/28/2018), Cryo cervix 1990's, L retinal detachment [facility] 2013. Discharge Vitals Heart Rate (Peripheral) 86 Respiratory Rate 16 Blood Pressure 158/94 Height 65 in Height 165 cm Weight 215.832 lb Weight 97.9 kg BMI 35.96 What to do next Scheduled Follow-Up Appointments Tuesday 9:30 AM EDT With: Where: [facility] [address] [place] [address]- Tuesday2025 11:00 AM EST With: GLADYS Conde Tammy L. Where: [facility] [address] [place] [address]- You Need to Schedule the Following Appointments Follow Up with GLADYS Conde Tammy L. When: In 1 week Where: [address] [place] [address] [place] [phone] Medications What How Much When Why Instructions Changed lisinopril (lisinopril 10 mg Tab) 1 Tablets By Mouth Every day Unchanged apixaban (Eliquis 5 mg oral tablet) 180 EA, 0 Refill(s), TAKE 1 TABLET BY MOUTH TWICE A DAY Contact prescribing physician if questions or concerns Unchanged aspirin (aspirin 81 mg Oral EC Tab) 1 Tablets By Mouth Every day Contact prescribing physician if questions or concerns Unchanged atorvastatin (atorvastatin 20 mg Tab) 1 Tablets By Mouth Every day Contact prescribing physician if questions or concerns Unchanged betamethasone topical (betamethasone dipropionate topical 0.05% ointment) 1 Application Topical 2 times a day Contact prescribing physician if questions or concerns Unchanged budesonide (budesonide 3 mg oral delayed release capsule) 3 Capsules By Mouth Once a day (in the morning) Contact prescribing physician if questions or concerns Unchanged escitalopram (escitalopram 10 mg Tab) See instructions TAKE 1.5 TABLETS BY MOUTH DAILY Contact prescribing physician if questions or concerns Unchanged flecainide (flecainide 100 mg Tab) 1 Tablets By Mouth Every 12 hours Contact prescribing physician if questions or concerns Unchanged lorazepam (Ativan 0.5 mg Tab) 1 Tablets By Mouth 3 times a day as needed for anxiety Anxiety, generalized duration 30 days Contact prescribing physician if questions or concerns Unchanged meclizine (meclizine 12.5 mg Tab) 1 Tablets By Mouth 3 times a day as needed for for dizziness Contact prescribing physician if questions or concerns Unchanged metoprolol (metoprolol succinate 25 mg ER Tab) 1 Tablets By Mouth Every day Contact prescribing physician if questions or concerns Allergies No Known Allergies No Known Medication Allergies Problems Ongoing - Any problem that you are currently receiving treatment for. 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 Atrial fibrillation BMI 35.0-35.9,adult Cerebrovascular small vessel disease Class 2 obesity due to excess calories in adult Cystitis with hematuria Dense breast tissue on mammogram Dizziness Eczema of external ear Edema of optic disc of right eye Encounter for screening for cardiovascular disorders Generalized anxiety disorder Hyperlipemia, mixed Hypertension IBS (irritable bowel syndrome) Kidney stone Left lumbar radiculopathy Left retinal detachment Low vitamin D level Major depressive disorder, single episode, mild Obesity due to excess calories KEREN (obstructive sleep apnea) Osteopenia of multiple sites Sensory neuropathy Supraventricular tachycardia Ureteral stone with hydronephrosis Historical - Any problem that you are no longer receiving treatment for. Chronic uveitis Herpes zoster Primary ovarian failure Splenic vein thrombosis Patient Survey You may receive a survey via text or e-mail asking about your office visit. Please share your experience with us by completing your survey. We appreciate your feedback and thank you for choosing us for your care. Education Materials Hypertension, Adult High blood pressure (hypertension) is when (more content not included)...Normal Roland [facility] Medicine Office/Clinic Noteon 04-03-1286Ykmlhy Medicine Office/Clinic NoteMiravista Behavioral [facility] Center Medicine Office/Clinic Note Chief Complaint The patient presents with concerns regarding elevated blood pressure and recent kidney stone treatment. HPI Staff Patient is here for follow up on hypertension. How often are you checking your blood pressure? Daily What are your average readings? noticed Tuesday that BP as elevated 160-180's/100's Are you compliant with your diet? yes Do you exercise? no Are you compliant with your medications? yes Do you have side effects from the medication? no Do you have any of the following symptoms? Chest Pain? no Palpitations? no FERRARA/SOB? no Headache? yes flushing Peripheral Edema? no Light Headedness? yes History of Present Illness The patient is a 69-year-old female presenting with management of hypertension and follow-up on kidney stone treatment. Staff HPI has been reviewed with the patient. The patient has a history of hypertension, with recent readings indicating elevated levels, including 172/110 mmHg and 186/101 mmHg. She reports symptoms of headache and pressure in the back of the head, but denies chest pain or palpitations. The patient has been advised to monitor her blood pressure at home and has been prescribed lisinopril, with a recent adjustment to increase the dosage to 10mg. The patient underwent kidney stone removal recently and currently has a stent in place. She reportsslight pain but has not required significant analgesics post- procedure. There is ongoing hematuria,which is expected to persist while the stent remains. Preventative care measures discussed include scheduling a bone density scan and a mammogram, with orders sent to [facility]. Review of Systems PHQ Score Initial Depression Screen Score: 0 SCORE - Cardiovascular: Reports elevated blood pressure, denies chest pain or palpitations. - Neurological: Reports headache and pressure in the back of the head. - Genitourinary: Reports hematuria post-kidney stone removal. - Musculoskeletal: Denies swelling in the legs. Physical Exam Vitals & Measurements HR: 86(Peripheral) RR: 16 BP: 158/94 SpO2: 97% HT: 165 cm HT: 65 in WT: 97.9 kg WT: 215.832 lb BMI: 35.96 Constitutional: Well-groomed, well-nourished, no signs of acute distress. HEENT: Head normocephalic, sclera is clear. Cardiothoracic: Heart rate and rhythm is regular strong, normal S1 and S2. No murmurs, rubs, or bruits auscultated. No peripheral edema, peripheral pulses +2 Respiratory: Lung sounds are clear throughout, respirations regular nonlabored. Abdomen/GI: Abdomen soft nondistended. Musculoskeletal: Gait is steady, full range of motion. Integument: No rashes or lesions noted to the exposed skin. Psychiatric: Alert and oriented x 3, pleasant, no mood changes. Assessment/Plan 1. Hypertension (I10: Essential (primary) hypertension) The importance of the following were all reviewed with the patient: -Take medications as prescribed. There are simple Lifestyle Modifications that you can do to reduce your blood pressure. -Weight Reduction -Follow the DASH eating plan. -Reduce Sodium (Salt) Intake to 2000mg per day. -Use Moderation when consuming alcohol. - To improve your health we recommend increasing your level of moderate exercise to at least 2.5 hrs per week. The patient has been experiencing elevated blood pressure readings, including 172/110 mmHg and 186/101 mmHg, with associated symptoms of headache and pressure in the back of the head. The plan includes increasing the lisinopril dosage to 10 mg and monitoring blood pressure at home. The patient is advised to reduce sodium and caffeine intake, increase water consumption, and engage in regular physical activity. Will follow-up in 1 to 2 weeks 2. Class 2 obesity due to excess calories in adult (E66.09: Other obesity due to excess calories) Calorie restriction along with routine aerobic exercises discussed in order to avoid hypertension, osteoarthritis, metabolic syndrome and/or worsening of chronic underlying disease states. Encouragedto limit sugary drinks, foods high in sodium, as well as alcohol. 3. BMI 35.0-35.9,adult (Z68.35: Body mass index [BMI] 35.0-35.9, adult) see #2 Orders: lisinopril, 10 mg = 1 tab(s), Oral, Daily, # 90 tab(s), Refills(s) 0, other reason (Rx) This note was created by the assist of a speech-recognition program although the intention is to generate a document that actually reflects the content of the visit, no guarantees can be provided that every mistake has been identified and corrected by editing. 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 Atrial fibrillation BMI 35.0-35.9,adult Cerebrovascular small vessel disease Class 2 obes (more content not included)...[facility] Comment on above:Result Comment: Electronically Signed By: Viral PARKER, Stacia GRAHAM\.br\Date and Time Signed: 12/07/24 15:22 EDTBasic Metabolic Panelon 80-26-5366Gnaxmqnjic Clr Calc Eupfhuij46.28[facility] Comment on above:Result Comment: PERFORMED BY: [place] [address] PATHOLOGIST POWER TONG OPERATOR MEDARDO ROGERS M.D.Performed By: #### CBC, BMP #### [facility] [address] [place] [address] USAGFR/1.73 sq M.predicted MDRD (S/P/Bld) [Vol rate/Area] mL/min/{1.73_m2}[facility] Physician GroupComment on above:Performed By: #### CBC, BMP #### [facility] [address] [place] [address] USABasophils [#/volume] in Blood by Automated countOrdered By: Augie Javier on 32-90-9554Rdwvnvpsa (Bld) [#/Vol]0.1 10*3/uLNormal0.0-0.2 [facility] HospitalComment on above:Result Comment: PERFORMED BY: [place] [address] PATHOLOGIST POWER TONG OPERATOR MEDARDO ROGERS M.D.Performed By: #### CBC, BMP #### [facility] [address] [place] [id number] USABasophils/100 leukocytes in Blood by Automated count Ordered By: Augie Javier on 75-66-8532Tqxbqdkgi/100 WBC (Bld)1.1 %Normal. [facility] HospitalComment on above:Performed By: #### CBC, BMP #### [facility] [address] [place] [id number] USACalcium [Mass/volume] in Serum or PlasmaOrdered By: Augie Javier on 90-38-4077Ztwerth [Mass/Vol]8.7 mg/dLNormal8.6-10.3FBrown Memorial HospitalComment on above:Performed By: #### CBC, BMP #### [place] [address] USACarbon dioxide, total [Moles/volume] in Serum or Plasma Ordered By: Augie Javier on 80-29-9174ZS7 [Moles/Vol]27.0 mmol/LLwqwmn56.0-31.0 [facility] HospitalComment on above:Performed By: #### CBC, BMP #### [place] [address] USAChloride [Moles/volume] in Serum or PlasmaOrdered By: Augie Javier on 63-64-4343Wiammopd [Moles/Vol]108 mmol/MHaha72-827ZgkonbzddCorey HospitalComment on above:Performed By: #### CBC, BMP #### [place] [id number] USAComplete Blood Count Auto Diffon 19-23-1330Gpyw Corpuscular HGB Conc33.7 g/cLByouev57.0-35.0[facility] Physician GroupComment on above:Performed By: #### CBC, BMP #### [place] [id number] USANRBC%0.0 /100{WBC}Normal0-0.5[facility] Comment on above:Performed By: #### CBC, BMP #### [facility] [address] [place] [address] USAWhite Blood Count6.5 [CFU]/mLNormal3.8-11.6[facility] Physician GroupComment on above:Performed By: #### CBC, BMP #### [facility] [address] [place] [id number] USACreatinine [Mass/volume] in Serum or PlasmaOrdered By: Augie Javier on 15-67-2831Prmtgxoqpz [Mass/Vol]0.94 mg/dLNormal0.60-1.20 [facility] HospitalComment on above:Performed By: #### CBC, BMP #### [facility] [address] [place] [id number] USAECG 12 lead ECGon 46-73-7963WSZ 12 lead [facility] [place] [address] [place] [address] Electrocardiograph Report Signed Patient: Jacky Gonzalez MR#: [id number] : 1955 Acct:[id number] Age/Sex: 69 / F ADM Date: 12/05/24 Loc: [place] Room: Type: [facility] Attending Dr: Maite Moran MD Ordering Provider: Augie Javier Jr, MD Date of Service: 12/05/24 ECG/ECG 12 lead ECG: prep Copies to: Test Reason : Blood Pressure : */* mmHG Vent. Rate : 54 BPM Atrial Rate : 54 BPM P-R Int : 230 ms QRS Dur : 100 ms QT Int : 490 ms P-R-T Axes : 32 -41 27 degrees QTcB Int : 464 ms Sinus bradycardia with 1st degree AV block Left axis deviation Pulmonary disease pattern Minimal voltage criteria for LVH, may be normal variant ( Emmalena product ) Nonspecific ST abnormality Abnormal ECG No previous ECGs available Confirmed by COMPA JIMENEZ MD ([id number]) on 12/05/2024 2:04:07 PM Referred By: Electronically Signed By: COMPA JIMENEZ MD Transcribed By: MUS Signed By Compa Jimenez MD 0 12/05/[address] [place] [address] Physician GroupEosinophils [#/volume] in Blood by Automated countOrdered By: Augie Javier on 04-20-5308Gpabnrxubkg (Bld) [#/Vol]0.1 10*3/uLNormal0.0-0.45[facility] HospitalComment on above:Performed By: #### CBC, BMP #### [facility] [address] [place] [address] USAEosinophils/100 leukocytes in Blood by Automated count Ordered By: Augie Javier on 06-07-9650Ujuhyimcdqt/100 WBC (Bld)1.6 %Normal. [facility] HospitalComment on above:Performed By: #### CBC, BMP #### [facility] [address] [place] [address] USAErythrocyte distribution width [Ratio] by Automated count Ordered By: Augie Javier on 14-36-3907Etfydyargxz distribution width (RBC) [Ratio]20.2 %High11.9-15.3FBrown Memorial HospitalComment on above: Performed By: #### CBC, BMP #### [facility] [address] [place] [address] USAErythrocytes [#/volume] in Blood by Automated countOrdered By: Augie Javier on 63-26-7153JTP (Bld) [#/Vol]4.50 10*6/uLNormal3.60-5.00 [facility] HospitalComment on above:Performed By: #### CBC, BMP #### [facility] [address] [place] [address] USAGlomerular filtration rate [Volume Rate/Area] in Serum, Plasma or Blood by CreatinineOrdered By: Augie Javier on 89-96-9569Ljsxtazpsc filtration rate [Volume Rate/Area] in Serum, Plasma or Blood by Creatinine> 60.0 mL/MinCorey HospitalGlucose [Mass/volume] in Serum or Plasma Ordered By: Augie Javier on 39-82-4209Bhdyrdr [Mass/Vol]101 mg/nVHpmn73-535 [facility] HospitalComment on above:ADA recommended reference rangeRandom Glucose Reference Range is dependent on time and content of last meal. Glucose of more than 200 mg/dL in a nonstressed, ambulatory subject supports the diagnosisof Diabetes Mellitus.Result Comment: Random Glucose Reference Range is dependent on time and content of last meal. Glucose of more than 200 mg/dL in a nonstressed, ambulatory subject supports the diagnosis of Diabetes Mellitus. ADA recommended reference rangePerformed By: #### CBC, BMP #### [facility] [address] [place] [address] USAHematocrit [Volume Fraction] of Blood by Automated count Ordered By: Augie Javier on 29-45-3637Kfnxpreajh (Bld) [Volume fraction]36.4 % Ebeizq46.0-46.4FBrown Memorial HospitalComment on above:Performed By: #### CBC, BMP #### [place] [address] USAHemoglobin [Mass/volume] in BloodOrdered By: Augie Javier on 51-90-4314Pqqpmvujum (Bld) [Mass/Vol]12.3 g/pNIjprzy41.8-15.4FBrown Memorial HospitalComment on above:Performed By: #### CBC, BMP #### [place] [id number] USALeukocytes [#/volume] corrected for nucleated erythrocytes in Blood by Automated counOrdered By: Augie Javier on 10-59-7223VBG corrected for nucl RBC Auto (Bld) [#/Vol]6.5 10*3/uL3.8-11.6FBrown Memorial HospitalLeukocytes [#/volume] in Blood by Automated countOrdered By: Augie Javier on 77-41-2178UTF (Bld) [#/Vol]6.5 10*3/uLNormal3.8-11.6FBrown Memorial HospitalComment on above:Performed By: #### CBC, BMP #### [place] [address] USALymphocytes [#/volume] in Blood by Automated countOrdered By: Augie Javier on 85-14-7921Vowfdwzvowr (Bld) [#/Vol]2.1 10*3/uLNormal1.00-4.8 [facility] HospitalComment on above:Performed By: #### CBC, BMP #### [facility] [address] [place] [address] USALymphocytes/100 leukocytes in Blood by Automated count Ordered By: Augie Javier on 85-30-4280Jegjhiwntas/100 WBC (Bld)32.5 %Normal. [facility] HospitalComment on above:Performed By: #### CBC, BMP #### [facility] [address] [Entitic mass] by Automated countOrdered By: Augie Javier on 95-88-2781CQO (RBC) [Entitic mass]27.3 iuYyblbb29.7-34.3FBrown Memorial HospitalComment on above:Performed By: #### CBC, BMP #### [facility] [address] Auto (RBC) [Mass/Vol]Ordered By: Augie Javier on 96-67-6920FPZO (RBC) [Mass/Vol]33.7 g/dL32.0-35.0[facility] - AndersonV [Entitic volume] by Automated countOrdered By: Augie Javier on 81-77-4956ANE (RBC) [Entitic vol]80.9 rDJipqrv24-891AzvtuswixCorey HospitalComment on above:Performed By: #### CBC, BMP #### [place] [id number] USAMonocytes [#/volume] in Blood by Automated countOrdered By: Augie Javier on 68-39-5724Rynbujitm (Bld) [#/Vol]0.4 10*3/uLNormal0.0-0.8 [facility] HospitalComment on above:Performed By: #### CBC, BMP #### [place] [id number] USAMonocytes/100 leukocytes in Blood by Automated count Ordered By: Augie Javier on 72-95-6903Povhnodov/100 WBC (Bld)6.3 %Normal. [facility] HospitalComment on above:Performed By: #### CBC, BMP #### [facility] [address] [place] [address] USANeutrophils [#/volume] in Blood by Automated countOrdered By: Augie Javier on 11-02-9273Oeukewtjctf (Bld) [#/Vol]3.8 10*3/uLNormal1.8-7.7 [facility] HospitalComment on above:Performed By: #### CBC, BMP #### [facility] [address] [place] [address] USANeutrophils/100 leukocytes in Blood by Automated count Ordered By: Augie Javier on 42-17-7115Bkwhsysxqve/100 WBC (Bld)58.5 %Normal. [facility] HospitalComment on above:Performed By: #### CBC, BMP #### [facility] [address] [place] [address] USANo Panel InformationOrdered By: Augie Javier on 12-05-2024 Pharmacy Creatinine Clearance (Chem65.28[facility] Nucleated erythrocytes [Presence] in Blood by Automated countOrdered By: Augie Javier on 35-73-9259Ffcumlguf RBC Auto Ql (Bld)0.0 /100{WBC}0-0.5FBrown Memorial HospitalPlatelet mean volume [Entitic volume] in Blood by Automated countOrdered By: Augie Javier on 08-33-5515Bnfhimlp mean volume (Bld) [Entitic vol]7.4 fLNormal6.3-10.7FBrown Memorial HospitalComment on above:Performed By: #### CBC, BMP #### [facility] [address] [place] [id number] USAPlatelets [#/volume] in Blood by Automated countOrdered By: Augie Javier on 53-31-6579Aunovfgpw (Bld) [#/Vol]238 10*3/xDBwdqzr295-540 [facility] HospitalComment on above:Performed By: #### CBC, BMP #### [facility] [address] [place] [address] USAPotassium [Moles/volume] in Serum or PlasmaOrdered By: Augie Javier on 13-57-8161Ttzuaezye [Moles/Vol]3.5 mmol/LNormal3.5-5.1FBrown Memorial HospitalComment on above:Performed By: #### CBC, BMP #### [facility] [address] [place] [address] USASerum or plasma anion gap determinationOrdered By: Augie Javier on 76-96-1539Kjnue gap [Moles/Vol]9.5 mmol/LNormal6.0-15.0Corey HospitalComment on above:Performed By: #### CBC, BMP #### [facility] [address] [place] [address] USASodium [Moles/volume] in Serum or PlasmaOrdered By: Augie Javier on 00-85-4553Jcoddo [Moles/Vol]141 mmol/MDpwclt758-303OpsaxgzbbCorey HospitalComment on above:Performed By: #### CBC, BMP #### [facility] [address] [place] [id number] USAUrea nitrogen [Mass/volume] in Serum or PlasmaOrdered By: Augie Javier on 28-91-4994Ekhc nitrogen [Mass/Vol]15 mg/dLNormal7-25Corey HospitalComment on above:Performed By: #### CBC, BMP #### [facility] [address] [place] [id number] USAXR KUBon 75-83-1767HG [facility] [place] [address] [place], [place] [id number] XRay Report Signed Patient: Jacky Gonzalez MR#: [id number] : 1955 Acct:[id number] Age/Sex: 69 / F ADM Date: 12/05/24 Loc: [place] Room: Type: [facility] Attending Dr: Maite Moran MD Copies to: Maite Moran MD Ordering Provider: Maite Moran MD Date of Service: 12/05/24 XR/XR KUB: STENT PLACEMENT Fluoroscopic assessment for right stent placement and stone removal HISTORY: A right kidney stone 15 image was obtained. Cumulative Air Kerma in mGy: 10 mGy Intraoperative assessment for stone removal and stent placement on the right XR/XR KUB IMPRESSION: Right ureteral stent in place Impression dictated by: Wan Miranda M.D. 12/05/2024 7:13 PM Dictation Location: [facility]--20 Transcribed By: [facility] 12/05/241912 Dictated By: Wan Miranda DO 12/05/241909 Signed By: 12/05/241912[facility] GroupAmbulatory Visit Summaryon [id number] Visit SummaryAmbulatory Visit Summary GONZALEZJACKY :1955 Visit Date:11/30/2024 Ambulatory Visit Instructions Your Diagnosis Ureteral stone with hydronephrosis Kidney stone Gross hematuria Anticoagulated Your Care Team Attending Physician - MARLENY RODRIGUEZ, MAITE Primary Care Physician - Viral MSN, GENERAL PURCHASING AGENT-RACQUET MAKER, Stacia Mcmahan This Is Your Medications List Contact prescribing physician if questions or concerns apixaban (Eliquis 5 mg oral tablet) aspirin (aspirin 81 mg Oral EC Tab) atorvastatin (atorvastatin 20 mg Tab) betamethasone topical (betamethasone dipropionate topical 0.05% ointment) escitalopram (escitalopram 10 mg Tab) flecainide (flecainide 100 mg Tab) lisinopril (lisinopril 5 mg Tab) lorazepam (Ativan 0.5 mg Tab) meclizine (meclizine 12.5 mg Tab) metoprolol (metoprolol succinate 25 mg ER Tab) Procedures Performed Colonoscopy (01/15/2020), Colectomy (11/28/2018), Cryo cervix 1989's, L retinal detachment [facility] 2013. Discharge Vitals Heart Rate (Peripheral) 63 Blood Pressure 172/110 Height 165 cm Height 65 in Weight 98.1 kg Weight 216.273 lb BMI 36.03 What to do next Scheduled Follow-Up Appointments Tuesday 10:00 AM EDT With: Where: [facility] Tuesday 3:00 PM EDT With: Where: [facility] [place] [facility] Tuesday 9:30 AM EDT With: Where: [facility] [address] [place] [address]- Tuesday2025 11:00 AM EST With: Viral MSN, GENERAL PURCHASING AGENT-RACQUET MAKER, Stacia Mcmahan Where: [facility] [address] [place] [address]- You Need to Schedule the Following Appointments Follow Up with MARLENY RODRIGUEZ, AGNES ARORA When: Where: Medications What How Much When Why Instructions Unchanged apixaban (Eliquis 5 mg oral tablet) 180 EA, 0 Refill(s), TAKE 1 TABLET BY MOUTH TWICE A DAY Contact prescribing physician if questions or concerns Unchanged aspirin (aspirin 81 mg Oral EC Tab) 1 Tablets By Mouth Every day Contact prescribing physician if questions or concerns Unchanged atorvastatin (atorvastatin 20 mg Tab) 1 Tablets By Mouth Every day Contact prescribing physician if questions or concerns Unchanged betamethasone topical (betamethasone dipropionate topical 0.05% ointment) 1 Application Topical 2 times a day Contact prescribing physician if questions or concerns Unchanged escitalopram (escitalopram 10 mg Tab) See instructions TAKE 1.5 TABLETS BY MOUTH DAILY Contact prescribing physician if questions or concerns Unchanged flecainide (flecainide 100 mg Tab) 1 Tablets By Mouth Every 12 hours Contact prescribing physician if questions or concerns Unchanged lisinopril (lisinopril 5 mg Tab) 1 Tablets By Mouth Every day Duration: 90 Days Contact prescribing physician if questions or concerns Unchanged lorazepam (Ativan 0.5 mg Tab) 1 Tablets By Mouth 3 times a day as needed for anxiety Anxiety, generalized duration 30 days Contact prescribing physician if questions or concerns Unchanged meclizine (meclizine 12.5 mg Tab) 1 Tablets By Mouth 3 times a day as needed for for dizziness Contact prescribing physician if questions or concerns Unchanged metoprolol (metoprolol succinate 25 mg ER Tab) 1 Tablets By Mouth Every day Contact prescribing physician if questions or concerns Allergies No Known Allergies No Known Medication Allergies Problems Ongoing - Any problem that you are currently receiving treatment for. 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 Atrial fibrillation BMI 35.0-35.9,adult Cerebrovascular small vessel disease Class 2 obesity due to excess calories in adult Cystitis with hematuria Dense breast tissue on mammogram Dizziness Eczema of external ear Edema of optic disc of right eye Encounter for screening for cardiovascular disorders Generalized anxiety disorder Hyperlipemia, mixed Hypertension IBS (irritable bowel syndrome) Kidney stone Left lumbar radiculopathy Left retinal detachment Low vitamin D level Major depressive disorder, single episode, mild Obesity due to excess calories KEREN (obstructive sleep apnea) Osteopenia of multiple sites Sensory neuropathy Supraventricular tachycardia Ureteral stone with hydronephrosis Historical - Any problem that you are no longer receiving treatment for. Chronic uveitis Herpes zoster Primary ovarian failure Splenic vein thrombosis Patient Survey You may receive a survey via text or e-mail asking about your office visit. Please share your experience with us by completing your survey. We appreciate your feedback and thank you for choosing us for your care. Education Materials Laser Therapy for Kidney Stones, Care After After laser therapy for kidney stones, it is common to have: ??? Pain. (more content not included)...[facility]/Clinic Noteon [id number] Office/Clinic NoteUrology Office/Clinic Note Chief Complaint discuss stone treatment HPI Staff 69 year old female presents to discuss stone treatment prev dx: gross hematuria, anticoagulated CT11/29/24- 6 mm stone right kidney w/ mild hydronephrosis and hydroureter BBS: 9 pt states a tiny bit of dysuria after she urinates, visible blood in urine not always. Denies flankpain some abdominal pain History of Present Illness Tests reviewed: UA, CT I have reviewed the previous health record information and history for this patient from [facility]. I have reviewed and verified the staff HPI to be accurate for this encounter. Review of Systems PHQ Score Initial Depression Screen Score: 0 SCORE ROS - Provider Constitutional: denies weight loss, denies hot flashes. Eyes: denies eye problems. Gastrointestinal: denies nausea, denies vomiting. Cardiovascular: denies chest pain or angina. Integumentary: no dryness Musculoskeletal: denies musculoskeletal symptoms. ENMT: denies otolaryngeal symptoms. Respiratory: no shortness of breath. Heme/Lymph: denies easy bleeding tendency, denies easy bruising tendency. Psychiatric: no confusion, no anxiety. Genitourinary: See HPI. Physical Exam Vitals & Measurements HR: 63(Peripheral) BP: 172/110 HT: 65 in HT: 165 cm WT: 216.273 lb WT: 98.1 kg BMI: 36.03 General Appearance: alert, no distress, well nourished, well developed adult. Assessment/Plan Last seen by AG. Pt here with her significant other. PMH: ND no. CVA no. DVT no. PE no. Cancer yes (colon). Smoking hx no. Anticoagulated yes, Eliquis for Afib for almost 2 yrs. Also on ASA. Issues voiding no. BBS 9. PSH: Abdominal surgeries yes, hx of colon cancer s/p resection and chemo (pt think FOLFOX) 2019. Urologic surgeries no. Stents no. 1. Ureteral stone with hydronephrosis (N13.2: Hydronephrosis with renal and ureteral calculous obstruction) CTU 11/29/24 [facility] [place] Mild R hydroureteronephrosis to the level of pelvic brim where there is a 5 mm ureteral stone. Pt was having painless gross hematuria. Went to PCP. Had gross hematuria 2-3 mos as well so she wasreferred to urology. Reviewed imaging with pt. She is not having any pain. Still having intermittent gross hematuria, varies from dark to clear. No smoking hx. No prior hx of stones. No family hx of stones. No hx of UTI. No urinary issues. Recommended surgical intervention since pt has been having gross hematuria for a couple mos. Discussed cysto, urs, rgp, laser litho, basket extraction, string stent placement and its R/Bs. Pt agrees to proceed with laser litho. -Will schedule cysto, urs, rgp, Right laser litho, basket extraction, string stent placement. The procedural risks, benefits, details, and treatment alternatives have been discussed with the patient.These include bleeding, infection, inability to break or retrieve all of the stone, injury to the ureter (the tube which connects the kidney to the bladder), injury to the kidney scarring of the ureter, and need for repeat procedures, among others. Full informed consent has been obtained. Will order General anesthesia. -Then KUB/LEX in 2 mos after surgery 2. Kidney stone (N20.0: Calculus of kidney) CTU 11/29/24 [facility] [place] - 6 mm stone RLP. 3. Gross hematuria (R31.0: Gross hematuria) See #1. Cytology neg. UA shows large blood wo signs of infection. Suspect secondary to stone however lower urinary tract will be assessed during stone procedure and upper urinary tract was assessed with CTU. If cysto neg,this will complete hematuria workup. 4. Anticoagulated (Z79.01: FDC (current) use of anticoagulants) Eliquis for Afib x ~2 yrs. Sees cardiology in [place], last saw cardiology in September or October this yr. Also on ASA. -Cardiac clearance prior to stone procedure Patient is a 69-year-old female with a 5 mm obstructing mid ureteral stone. Also having gross hematuria. Discussed with the patient that we will proceed with a right ureteroscopy, laser lithotripsy, right ureteral stent placement. Risk, benefits, alternatives were discussed in extensive detail withthe patient we will proceed as such. Patient is on Eliquis and will need to hold her medication 1 to 2 days before surgery. Follow-up With When Contact Information MAITE MORAN MD, URL Additional Instructions: schedule cysto, urs, rgp, Right laser litho, basket extraction, string stent placement Patient Education Laser Therapy for Kidney Stones, Care After Laser Therapy for Kidney Stones I, Shauna Cortes, personally scribed for Dr. Maite Moran on 11/30/2024 10:00:10. . Portions of this record may have been created with voice recognition artificial intelligence software, specifically [employer], [employer] and or [facility]. Substitutions may have occurred due to the inherent limitations of voice recognition and artificial intelligence software. Documentation re (more content not included)...[facility] Comment on above:Result Comment: Electronically Signed By: MAITE MORAN MD\.br\Date and Time Signed: 11/30/24 11:09 EDT\.br\Electronically Co- Signed By: Shauna Cortes\.br\Date and Time Co-Signed: 11/30/24 10:00 EDT\.br\Electronically Co-Signed By: Shauna Cortes.br\Date and Time Co- Signed: 11/30/24 10:03 EDTCT Urogramon [id number] UrogramExam Date/Time: 11/29/2024 11:11 EDT Reason for Exam: R31.0;Hematuria Report IMPRESSION: 6 MM CALCULUS LOWER POLE RIGHT KIDNEY WITH MILD RIGHT HYDRONEPHROSIS AND RIGHT HYDROURETER TO LEVEL OF PELVIC BRIM WHERE [address] OF THE ABDOMEN AND PELVIS WITH AND WITHOUT INTRAVENOUS CONTRAST MEDIUM. HISTORY: INTERMITTENT HEMATURIA FOR ONE. HISTORY OF COLON CARCINOMA. TECHNICAL FACTORS: CT urogram of the abdomen and pelvis were obtained and formatted as 2.5 mm contiguous axial images from the domes of the diaphragm to the symphysis pubis. Imaging obtained with and without intravenous contrast medium. Delayed images also obtained. Sagittal and coronal reconstructions were acquired during postprocessing. Comparison: None. Findings: Lower chest: Cardiac size normal. No pericardial. No coronary artery calcification. Lung bases clear. Small hiatal hernia. Liver: Normal in size, and shape. Multiple cysts in the liver, largest measuring 1.5 cm left hepatic dome. Bile Ducts: Normal in caliber. Gallbladder: No stones or wall thickening. Pancreas: Normal without masses, cysts, ductal dilatation or calcification. Spleen: Normal in size without masses. Punctate calcification spleen.. No splenules. Kidneys: Normal in size and enhancement. No masses. Mild right pelvocaliectasis.. 6 mm calculus lower pole right kidney. Adrenals: Normal. Small bowel: Normal in caliber. Appendix: Not visualized. Colon: Normal in caliber. Report Peritoneum: No ascites, free air, or fluid collections. Vessels: Aorta normal in course and caliber. Portal vein, splenic vein, superior mesenteric vein are patent. Lymph nodes: Retroperitoneal: No enlarged retroperitoneal lymph nodes. Mesenteric: No enlarged mesenteric lymph nodes. Pelvic: No enlarged pelvic lymph nodes. Ureters: Mild dilatation right ureter to level of pelvic brim where a 5 mm calculus is identified. Left ureter normal in course and caliber without calcification. Bladder: No wall thickening. Partially decompressed. Reproductive organs: No pelvic masses. Abdominal Wall: 1 cm fat-containing periumbilical anterior abdominal defect. No diastasis of rectus musculature. No edema or masses. Bones: No bone lesions. No degenerative changes. No post operative changes. All CT scans at this facility use dose modulation, iterative reconstruction, and/or weight based dosing when appropriate to reduce radiation dose to as low as reasonably achievable. Technical Comments: GFR (mL/min/1/73m2) 54 Contrast: Isovue 300 Contrast amount in ml's: 100.00 Ordering Provider: Kemi Raya FINAL REPORT Dictated: 11/29/2024 12:17 pm Jian Trinh MD Signed (Electronic Signature): 11/29/2024 12:17 pm Signed by: Jian Trinh MD Transcribed by: NICOLAS Technologist: Julio CesarCoshocton Regional Medical CenterCreatinineon [id number] [Mass/Vol]1.1 mg/dLNormal0.5-1.3[facility] Comment on above:Performed By: #### [id number] #### [facility] [address] [place], [place] [address]oSSQsv [id number] mL/min/1.73 m2Low>=59[facility] Medical CenterComment on above:Performed By: #### [id number] ####[facility] [id number] Pricebeth david hospitalisauraCOL[place], [place] [address]Pqmvfntgubmzvzat Office/Clinic Noteon [id number] Office/Clinic NoteChief Complaint abdominal pain and diarrhea History of Present Illness Jacky is a 69-year-old female who presents to GI clinic as a new patient, being seen today for follow-up of open access colonoscopy, scheduled by her oncologist Dr. Ghotra, at [facility]. Patient has a history of colon cancer with colectomy in 2019, diagnosed November 2018. Follows with him every 6 months. Underwent chemo starting in December 2019 for approximately 6 months. Patient sent for colonoscopy due to change in stool, currently is having diarrhea 3 times per day, has noticed blood in her stool 1-2 times. Stool is mostly diarrhea, loose and watery, for approximately the last 3 to 4 months. Prior to change in stool her bowel movements were once daily and formed.Patient states she also is experiencing hematuria intermittently since October, is scheduled for CT scan and cystoscopy tomorrow. Is scheduled for repeat labs with her oncologist in March, given hematuria and bleeding will repeat CBC and iron panel, to be completed at 3-month follow-up. Colonoscopy completed 10/[address] Harding, bowel prep was good, no lesions stricture or stenosis,there was a subcentimeter polypoid lesion in the cecum appearance likely consistent with a lipoma, small hemorrhoids seen. 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 No dysplasia or malignancy identified. Discussed treatment with budesonide taper. Review of Systems ROS completed as noted per HPI, all other systems are negative Physical Exam Vitals & Measurements HR: 62 (Peripheral) BP: 136/88 SpO2: 97% HT: 165 cm WT: 97.9 kg WT: 97.9 kg (Dosing) BMI: 35.96 General: NAD, well nourished Mental status: Awake, alert, oriented x 3 Neuro: Speech is normal, EOM intact, no tremor, no focal deficits HEENT: Sclera clear, no drainage Lungs: Nonlabored respirations, regular rate Heart: Regular rate, no cyanosis Abdomen: Soft, nondistended Musculoskeletal: Moves all extremities, normal ambulation Skin: Intact warm and dry Psychiatric: Calm, cooperative Additional Vitals No qualifying data available. Assessment and Plan: 1. Microscopic colitis - Start budesonide taper, 16 weeks - Repeat CBC, iron panel, reports of hematuria and rectal bleeding. - Patient will have labs checked again in 6 mos w oncologist - 3mo clinic follow up Ordered: Complete Blood Count w/ Differential 2. History of colon cancer Ordered: Complete Blood Count w/ Differential 3. History of colectomy Ordered: Complete Blood Count w/ Differential Orders: budesonide, See Instructions, Take 3 caps in am for 8 weeks Take 2 caps in am for 4 weeks Take 1 cap in am for 4 weeks, # 252 tabs, 0 Refill(s), 03/22/25 9:00:00 EST, Pharmacy: [facility]/pharmacy #[id number] Ferritin Folate Level Total Iron Binding Capacity Transferrin Level Vitamin B12 Level Medical Decision Making Chronic conditions NOT treated during this visit that affected my overall medical decision making: [] Treatment plans discussed but not opted for at this time: [] Prescribed medication that requires intensive monitoring for toxicity: [] I have reviewed the patient?s medication list for medication interactions/contraindications and/or for upcoming procedures: [yes or no] Time Spent with the Patient I have personally spent [] minutes on this date, directly related to today's patient visit, including pre and post visit work, for this date of service. Time listed does not include time spent on separately billable services. Problem List/Past Medical History Ongoing History of colectomy History of colon cancer Hypertension Microscopic colitis Historical No qualifying data Medications aspirin 81 mg oral capsule, 81 mg= 1 caps, Oral, Daily atorvastatin 20 mg oral tablet, 90 EA, 0 Refill(s), TAKE 1 TABLET BY MOUTH EVERYDAY AT BEDTIME budesonide 3 mg oral delayed release capsule, See Instructions, Take 3 caps in am for 8 weeks Take 2 caps in am for 4 weeks Take 1 cap in am for 4 weeks Eliquis 5 mg oral tablet, 180 EA, 0 Refill(s), TAKE 1 TABLET BY MOUTH TWICE A DAY escitalopram 10 mg oral tablet, 135 EA, 0 Refill(s), TAKE 1 AND 1/2 TABLETS DAILY BY MOUTH flecainide 50 mg oral tablet, 60 EA, 0 Refill(s), TAKE 1 TABLET BY MOUTH TWICE A DAY GoLYTELY oral powder for reconstitution, See Instructions, use as directed by office for bowel prep lisinopril 5 mg oral tablet, 5 mg= 1 tabs, Oral, Daily LORazepam 0.5 mg oral tablet, 30 EA, 0 Refill(s), TAKE 1 TABLET BY MOUTH 3 TIMES A DAY NEEDED FOR ANXIETY FOR 30 DAYS Metoprolol Succinate ER 25 mg oral tablet, extended release, 90 EA, 0 Refill(s), TAKE 1 TABLET BY MOUTH EVERY DAY Allergies No Known Medication Allergies Social History Alcohol Never Substance Denies All Tobacco Never (less than 100 in lifetime) Use:. Electronically signed by Lea Sanchez 12/04/24 1 (more content not included)...[facility] CenterUrine Cytology ([facility])on [id number] Cytology Diagnosis InfoInvalid Interpretation [facility] HospitalComment on above:Result Comment: A:Urine,Urine:Voided Interpretation - Adequate cellularity for evaluation. CPT 64680 MicroScopic Description - Adequacy - Gross Description Site ID:A color Brissa fixative Alcohol Specimen designated Urine received in alcohol preservativeand labeled with the patient???s name, consists of 80ml clear brissa fluid. Electronically signed by : on: 11/18/2024 11:21:54Performed By: #### [id number] #### [facility] [address], [place] [address]Wjfwbokpwf Visit Summaryon [id number] Visit Summary Ambulatory Visit Summary GONZALEZJACKY :1955 Visit Date:11/14/2024 Ambulatory Visit Instructions Your Diagnosis Hypertension Hyperlipemia, mixed Cerebrovascular small vessel disease Osteopenia of multiple sites Generalized anxiety disorder Atrial fibrillation Class 2 obesity due to excess calories in adult BMI 35.0-35.9,adult Breast cancer screening Ovarian failure due to menopause Encounter for screening for cardiovascular disorders Tests Performed BD Bone Density DEXA -- Results Pending -- MA Mamm Screen w/CAD if perf and 3D Aquiles -- Results Pending -- Please visit your patient portal for your results or contact your primary care physician. Your Care Team Attending Physician - Viral PARKER, BRUNO-Stacia POSADA Primary Care Physician - Viral PARKER, BRUNO-Stacia POSADA. This Is Your Medications List betamethasone topical (betamethasone dipropionate topical 0.05% ointment) Contact prescribing physician if questions or concerns apixaban (Eliquis 5 mg oral tablet) aspirin (aspirin 81 mg Oral EC Tab) atorvastatin (atorvastatin 20 mg Tab) escitalopram (escitalopram 10 mg Tab) flecainide (flecainide 100 mg Tab) lisinopril (lisinopril 5 mg Tab) lorazepam (Ativan 0.5 mg Tab) meclizine (meclizine 12.5 mg Tab) metoprolol (metoprolol succinate 25 mg ER Tab) Procedures Performed Colonoscopy (01/15/2020), Colectomy (11/28/2018), Cryo cervix 1990's, L retinal detachment [facility] 2013. Discharge Vitals Heart Rate (Peripheral) 77 Respiratory Rate 16 Blood Pressure 138/94 Height 165 cm Height 65 in Weight 97.7 kg Weight 215.391 lb BMI 35.89 What to do next Scheduled Follow-Up Appointments 2024 10:00 AM EDT With: Where: [facility] Tuesday 9:30 AM EDT With: Where: [facility] [address] [place] [address]- Tuesday2025 11:00 AM EST With: Viral PARKER, BRUNO-Stacia POSADA Where: [facility] [address] [place] [address]- You Need to Schedule the Following Appointments Follow Up with Viral PARKER, BRUNO-ALBINO, Stacia Mcamhan When: In 4 months Comments: chronic care Where: [address] [place] [id number] You Need to Complete the Following CT Urogram, 11/29/24, Routine, Order for future visit, Transport Mode: Wheelchair, Reason: Hematuria, Reason: R31.0, No, No, Gross hematuria, 11/13 - MEDICARE NPCR MED NEC PASS, pp_set_radiology_subspecialty, Not Required, [facility] Medications What How Much When Why Instructions Unchanged betamethasone topical (betamethasone dipropionate topical 0.05% ointment) 1 Application Topical 2 times a day Pickup at [facility]/pharmacy #[id number] Unchanged apixaban (Eliquis 5 mg oral tablet) 180 EA, 0 Refill(s), TAKE 1 TABLET BY MOUTH TWICE A DAY Contact prescribing physician if questions or concerns Unchanged aspirin (aspirin 81 mg Oral EC Tab) 1 Tablets By Mouth Every day Contact prescribing physician if questions or concerns Unchanged atorvastatin (atorvastatin 20 mg Tab) 1 Tablets By Mouth Every day Contact prescribing physician if questions or concerns Unchanged escitalopram (escitalopram 10 mg Tab) See instructions TAKE 1.5 TABLETS BY MOUTH DAILY Contact prescribing physician if questions or concerns Unchanged flecainide (flecainide 100 mg Tab) 1 Tablets By Mouth Every 12 hours Contact prescribing physician if questions or concerns Unchanged lisinopril (lisinopril 5 mg Tab) 1 Tablets By Mouth Every day Duration: 90 Days Contact prescribing physician if questions or concerns Unchanged lorazepam (Ativan 0.5 mg Tab) 1 Tablets By Mouth 3 times a day as needed for anxiety Anxiety, generalized duration 30 days Contact prescribing physician if questions or concerns Unchanged meclizine (meclizine 12.5 mg Tab) 1 Tablets By Mouth 3 times a day as needed for for dizziness Contact prescribing physician if questions or concerns Unchanged metoprolol (metoprolol succinate 25 mg ER Tab) 1 Tablets By Mouth Every day Contact prescribing physician if questions or concerns Pharmacy Information [facility]/pharmacy #[id number]: [address], [place] [id number] [phone] Allergies No Known Allergies No Known Medication Allergies Problems Ongoing - Any problem that you are currently receiving treatment for. 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 Atrial fibrillation BMI 35.0-35.9,adult Cerebrovascular small vessel disease Class 2 obesity due to excess calories in adult Cystitis with hematuria Dense breast tissue on mammogram Dizziness Eczema of external ear Edema of optic disc of right eye Encounter for screening for cardiovascular disorders Generalized anxiety disorder Hyperlipemia, mixed Hypertension IBS (irritable bowel syndrome) Left lumbar radiculopa (more content not included)...[facility] Office/Clinic Noteon [id number] Medicine Office/Clinic NoteFaboston [facility] Medicine Office/Clinic Note Chief Complaint The patient presents with concerns of elevated blood pressure and anxiety, along with recent episodes of hematuria. HPI Staff Patient is here for follow up on hypertension. HLD How often are you checking your blood pressure? Not checking What are your average readings? Are you compliant with your diet? yes Do you exercise? no Are you compliant with your medications? yes Do you have side effects from the medication? no Do you have any of the following symptoms? Chest Pain? no Palpitations? no FERRARA/SOB? no Headache? no Peripheral Edema? no Light Headedness? yes History of Present Illness 69 Years old Female here for [facility] chronic care HPI staff / Chief Complaint confirmed with the patient Screening: Colon Cancer screenin10/30/2024 with a 3 year f/u recommended; this patient does NOT have family history of colon cancer Breast cancer screenin03/04/2022 ; this patient does NOT have a family history of breast cancer Pap smear: NA DEXA: 03/11/2023 Labs: 03/05/2024 Tevin Guardado medication agreement: 07/10/2024 List of Providers: Oncologist: Tevin [employer] Associate: Tevin Urologist: Delmar Raya CNP Future Appointments [facility] STAR Jacob Appt. Date: 01/14/2025 9:30 AM Scheduled Provider: STAR Jacob [employer]ness Phone: -- Fax: -- The patient is presenting with management of hypertension, anxiety, and evaluation of hematuria. Hypertension has been noted with elevated systolic and diastolic blood pressure readings during thevisit. The patient reports experiencing anxiety, which may contribute to the elevated blood pressure readings. 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 The patient has a history of hematuria, with recent episodes prompting further evaluation. She is under the care of a urologist for this. She has undergone a colonoscopy, which showed no significant findings, and is scheduled for a follow-up. A CT scan is planned to further investigate the source of bleeding. The patient has a history of iron deficiency anemia, which was identified through blood tests showing low iron levels. She has received iron infusions as part of her treatment plan. Follows up with her oncologist regularly. Preventative care measures include breast cancer screening, with a diagnostic follow-up planned dueto previous findings. The patient has also undergone colon cancer screening with a recent colonoscopy. Review of Systems PHQ Score Initial Depression Screen Score: 2 SCORE - Cardiovascular: Reports anxiety-induced palpitations. Denies chest pain or leg swelling. - Genitourinary: Reports hematuria. Denies urinary tract infection. Physical Exam Vitals & Measurements HR: 77(Peripheral) RR: 16 BP: 138/94 SpO2: 97% HT: 65 in HT: 165 cm WT: 97.7 kg WT: 215.391 lb BMI: 35.89 Constitutional: Well-groomed, well-nourished, no signs of acute distress. HEENT: Head normocephalic, sclera is clear. Cardiothoracic: Heart rate and rhythm is regular strong, normal S1 and S2. No murmurs, rubs, or bruits auscultated. No peripheral edema, peripheral pulses +2 Respiratory: Lung sounds are clear throughout, respirations regular nonlabored. Abdomen/GI: Abdomen soft nondistended. Musculoskeletal: Gait is steady, full range of motion. Integument: No rashes or lesions noted to the exposed skin. Psychiatric: Alert and oriented x 3, pleasant, no mood changes. Assessment/Plan 1. Hypertension (I10: Essential (primary) hypertension) The importance of the following were all reviewed with the patient: -Take medications as prescribed. There are simple Lifestyle Modifications that you can do to reduce your blood pressure. -Weight Reduction -Follow the DASH eating plan. -Reduce Sodium (Salt) Intake to 2000mg per day. -Use Moderation when consuming alcohol. - To improve your health we recommend increasing your level of moderate exercise to at least 2.5 hrs per week. Blood pressure seems to be well-controlled unless she gets anxious then it elevates mildly. At thistime we will continue monitoring and continue her regimen. Ordered: 1126F Pain severity quantified; no pain present Current tobacco non-user 1036F Functional status assessed 1170F Lipid Panel Medication list documented in medical record 1159F Most recent diastolic blood pressure >=90 mm Hg 3080F Patient screen for fall risk: no falls in last year or 1 fall with no injury in last year 1101F Review of all meds by a prescribing practitioner or clinical pharmacist documented in EHR 1160F Systolic BP 130-139 mm Hg (Most Recent) 3075F 2. Hyperlipemia, mixed (E78.2: Mixed hyperlipidemia) The importance of the following were all reviewed with the patient: -Take medications as prescribed. - Recommended following the TLC Lipid Diet which is a low fat/low cholesterol diet for high cholesterol. - More information about this eating plan can be found here: http://tlcdiet.org - To improve you (more content not included)...[facility] Comment on above:Result Comment: Electronically Signed By: Viral PARKER, Stacia GRAHAM\.br\Date and Time Signed: 11/14/24 15:07 EDTAmbulatory Visit Summaryon [id number] Visit SummaryAmbulatory Visit Summary JACKY GONZALEZ :1955 Visit Date:11/13/2024 Ambulatory Visit Instructions Your Diagnosis Gross hematuria Your Care Team Attending Physician - Kemi Greenberg Primary Care Physician - Viral PARKER, Stacia GRAHAM Referring Physician - Mary Reid This Is Your Medications List apixaban (Eliquis 5 mg oral tablet) aspirin (aspirin 81 mg Oral EC Tab) atorvastatin (atorvastatin 20 mg Tab) betamethasone topical (betamethasone dipropionate topical 0.05% ointment) escitalopram (escitalopram 10 mg Tab) flecainide (flecainide 50 mg Tab) lisinopril (lisinopril 5 mg Tab) lorazepam (Ativan 0.5 mg Tab) meclizine (meclizine 12.5 mg Tab) metoprolol (metoprolol succinate 25 mg ER Tab) nitrofurantoin (Macrobid 100 mg Cap) Procedures Performed Colonoscopy (01/15/2020), Colectomy (11/28/2018), Cryo cervix 1990's, L retinal detachment [facility] 2013. Discharge Vitals Blood Pressure 138/90 Height 165 cm Height 65 in Weight 97.9 kg Weight 215.832 lb BMI 35.96 What to do next Scheduled Follow-Up Appointments Tuesday 11:00 AM EDT With: Viral MSN, GENERAL PURCHASING AGENT-RACQUET MAKER, Stacia Mcmahan Where: [facility] [address] [place] [address]- Tuesday 9:30 AM EDT With: Where: [facility] [address] [place] [address]- Medications What How Much When Why Instructions Unchanged apixaban (Eliquis 5 mg oral tablet) 180 EA, 0 Refill(s), TAKE 1 TABLET BY MOUTH TWICE A DAY Unchanged aspirin (aspirin 81 mg Oral EC Tab) 1 Tablets By Mouth Every day Unchanged atorvastatin (atorvastatin 20 mg Tab) 1 Tablets By Mouth Every day Unchanged betamethasone topical (betamethasone dipropionate topical 0.05% ointment) 1 Application Topical 2 times a day Unchanged escitalopram (escitalopram 10 mg Tab) See instructions TAKE 1.5 TABLETS BY MOUTH DAILY Unchanged flecainide (flecainide 50 mg Tab) 60 EA, 0 Refill(s), TAKE 1 TABLET BY MOUTH TWICE A DAY Unchanged lisinopril (lisinopril 5 mg Tab) 1 Tablets By Mouth Every day Duration: 90 Days Unchanged lorazepam (Ativan 0.5 mg Tab) 1 Tablets By Mouth 3 times a day as needed for anxiety Anxiety, generalized duration 30 days Unchanged meclizine (meclizine 12.5 mg Tab) 1 Tablets By Mouth 3 times a day as needed for for dizziness Unchanged metoprolol (metoprolol succinate 25 mg ER Tab) 1 Tablets By Mouth Every day Unchanged nitrofurantoin (Macrobid 100 mg Cap) 1 Capsules By Mouth 2 times a day Duration: 7 Days Allergies No Known Allergies No Known Medication Allergies Problems Ongoing - Any problem that you are currently receiving treatment for. 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 Atrial fibrillation BMI 35.0-35.9,adult Cerebrovascular small vessel disease Class 2 obesity due to excess calories in adult Cystitis with hematuria Dense breast tissue on mammogram Dizziness Eczema of external ear Edema of optic disc of right eye Generalized anxiety disorder Hyperlipemia, mixed Hypertension IBS (irritable bowel syndrome) Left lumbar radiculopathy Left retinal detachment Low vitamin D level Major depressive disorder, single episode, mild Obesity due to excess calories KEREN (obstructive sleep apnea) Osteopenia of multiple sites Sensory neuropathy Supraventricular tachycardia Historical - Any problem that you are no longer receiving treatment for. Chronic uveitis Herpes zoster Primary ovarian failure Splenic vein thrombosis Patient Survey You may receive a survey via text or e-mail asking about your office visit. Please share your experience with us by completing your survey. We appreciate your feedback and thank you for choosing us for your care. Patient Portal You may access all of your results and other medical record information on our secure patient portal. If you are not signed up for this yet, please contact [employer] at [phone] to get signed up today. Language Information Language assistance services are available as needed. NormalCoshocton [facility] Medical CenterUrine Cytology ([facility])on [id number] Method of ExtractionVoidedNormAultman HospitalComment on above:Performed By: #### [id number] #### [facility] [address], [place] [address]BE Number of [id number] Interpretation [facility] HospitalComment on above:Performed By: #### [id number] #### [facility] [address], [place] [address]VW SpecimenUrineNormAultman HospitalComment on above:Performed By: #### [id number] #### [facility] [address], [place] [address]MZ Type of ServiceTechnical OnlyNormalFisher [facility] Pediatric HospitalComment on above:Performed By: #### [id number] #### [facility] [address], [place] [address]Khgyfpy Office/Clinic Noteon [id number] Office/Clinic NoteUrology Office/Clinic Note Chief Complaint gross hematuria HPI Staff 69 year old female gross hematuria How Long? 11/01 Any clots? No Slight abdominal pain Shes anemic and they did a colonoscopy and now there checking this route History of Present Illness Staff HPI reviewed and agree. Review of Systems PHQ Score Initial Depression Screen Score: 1 SCORE no fever, chills, malaise, myalgia. no rash/lesions. no chest pain, palpitations, or SOB. no abdominal pain, nausea, vomiting. 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 Pt present with her daughter today. 1. Gross hematuria (R31.0: Gross hematuria) 11/07/24 cx - 2k mixed skin contaminants UA today large blood only Pt here today for gross hematuria referral. Pt reports in the middle of October she noticed gross hematuria. Pt denies any bothersome urination symptoms or UTI symptoms. Pt reports that she does have a history of colon cancer and her oncologist wanted patient to get colonoscopy completed prior to urology referral. Pt reports that colonoscopy was negative for any reasons for acute bleeding. Pt then saw PCP on 11/07/24 for continued hematuria. Pt's PCP ran urine culture and started her on Macrobid. Culture negative. Pt reports she has 2 days left of Macrobid, advised that patient can continue this if she wishes but culture is negative for infection. Discussed UA results with patient today. Pt reports that she continues to see intermittent gross hematuria, she did see it today. Pt denies history of smoking, kidney stones, or family history of kidney or bladder cancer. 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 Discussed hematuria workup with patient due to gross hematuria without infection including CTU, cystoscopy, and cytology. Pt aware that distinct cause of hematuria may not be found after completion of hematuria workup. Pt does report that she lives near [place] and follows with oncology there. Briefly discussed that if patient would need further treatment for anything oncology related, this could most likely be done in [place]. The risks and benefits for cystoscopy have been discussed. The risks include bleeding, infection, and irritation of the bladder and urinary channel, among others. The patient, after being informed ofprocedural details and after questions have been answered, wishes to proceed. Full informed consenthas been obtained. Will order Local anesthesia. -Schedule cystoscopy with Dr. Klein -CTU at [facility], review results at cystoscopy -Send urine for cytology today -F/U based on results Ordered: CT Urogram E&M of New Patient Moderate 45-59 Min 10861 Urine Cytology ([facility]) Urnls Dip Stick Auto w/o Microscopy POC 62713 Urology Procedure Order 2. 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 -Increased procedural risk. Ordered: E&M of New Patient Moderate 45-59 Min 17671 Follow-up With When Contact Information MARLENY RODRIGUEZ, [place], URL Additional Instructions: cystoscopy Patient Education Hematuria, Adult Total time spent reviewing previous notes/results/external documents, preparing the chart, conducting the encounter with the patient and family, ordering tests/medications, and documenting the encounter was 40 minutes. 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 Atrial fibrillation BMI 35.0-35.9,adult Cerebrovascular small vessel disease Class 2 obesity due to excess calories in adult Cystitis with hematuria Dense breast tissue on mammogram Dizziness Eczema of external ear Edema of optic disc of right eye Generalized anxiety disorder Hyperlipemia, mixed Hypertension IBS (irritable bowel syndrome) Left lumbar radiculopathy Left retinal detachment Low vitamin D level Major depressive disorder, single episode, mild Obesity due to excess calories KEREN (obstructive sleep apnea) Osteopenia of multiple sites Sensory neuropathy Supraventricular tachycardia Historical Chronic uveitis Herpes zoster Primary ovarian failure Splenic vein thrombosis Procedure/Surgical History Colonoscopy (01/15/2020), Colectomy (11/28/2018), Cryo cervix 1989's, L retinal detachment [facility] 2013. Medications aspirin 81 mg Oral EC Tab, 81 mg= 1 tab(s), Oral, Daily Ativan 0.5 mg Tab, 0.5 mg= 1 tab(s), Oral, TID, PRN atorvastatin 20 mg Tab, (more content not included)...[facility]:Result Comment: Electronically Signed By: Dorota MOORE, Kemi Kaye\.br\Date and Time Signed: 11/13/24 14:21 EDTC Urineon 11-09-2024 Bacteria identified Cx Nom (U)Microbiology PROCEDURE: Urine Culture [R1] SOURCE: U CleanCatch BODY SITE: COLLECTED DATE/TIME: 11/07/2024 11:57 EDT RECEIVED DATE/TIME: 11/07/2024 17:57 EDT START DATE/TIME: 11/07/2024 17:57 EDT FREE TEXT SOURCE: aMry Reid Charity A. FINAL REPORTS Final Report [] Verified Date/Time: 11/09/2024 12:42 EDT 2,000 cfu/ml Mixed skin contaminants Performing Locations R1: This test was performed at: [facility], [address] [place] [address], [id number] , , ZtmgmySrgtihRegency Hospital [facility] EastComment on above:Performed By: #### [id number] #### [facility] [address] [place] [id number] Visit Summaryon [id number] Visit Summary Ambulatory Visit Summary JACKY GONZALEZ :1955 Visit Date:11/07/2024 Ambulatory Visit Instructions Your Diagnosis Cystitis with hematuria Pain in the abdomen Acute headache Your Care Team Attending Physician - Mary Reid Primary Care Physician - Viral MSN, BRUNO-ALBINO, Stacia Mcmahan This Is Your Medications List apixaban (Eliquis 5 mg oral tablet) aspirin (aspirin 81 mg Oral EC Tab) atorvastatin (atorvastatin 20 mg Tab) betamethasone topical (betamethasone dipropionate topical 0.05% ointment) escitalopram (escitalopram 10 mg Tab) flecainide (flecainide 50 mg Tab) lisinopril (lisinopril 5 mg Tab) lorazepam (Ativan 0.5 mg Tab) meclizine (meclizine 12.5 mg Tab) metoprolol (metoprolol succinate 25 mg ER Tab) sulfamethoxazole-trimethoprim (Bactrim D.S. 800 mg-160 mg Tab) Procedures Performed Colonoscopy (01/15/2020), Colectomy (11/28/2018), Cryo cervix 1990's, L retinal detachment [facility] 2013. Discharge Vitals Heart Rate (Peripheral) 58 Respiratory Rate 16 Blood Pressure 150/88 Height 167.6 cm Height 66 in Weight 98.8 kg Weight 217.816 lb BMI 35.17 What to do next Scheduled Follow-Up Appointments Tuesday 11:00 AM EDT With: Viral PARKER, BRUNO-ALBINO, Stacia Mcmahan Where: [facility] [address] [place] [address]- Tuesday 9:30 AM EDT With: Where: [facility] [address] [place] [address]- Medications What How Much When Why Instructions New sulfamethoxazole-trimethoprim (Bactrim D.S. 800 mg-160 mg Tab) 1 Tablets By Mouth 2 times a dayDuration: 7 Days Pickup at [facility]/pharmacy #[id number] Unchanged apixaban (Eliquis 5 mg oral tablet) 180 EA, 0 Refill(s), TAKE 1 TABLET BY MOUTH TWICE A DAY Unchanged aspirin (aspirin 81 mg Oral EC Tab) 1 Tablets By Mouth Every day Unchanged atorvastatin (atorvastatin 20 mg Tab) 1 Tablets By Mouth Every day Unchanged betamethasone topical (betamethasone dipropionate topical 0.05% ointment) 1 Application Topical 2 times a day Unchanged escitalopram (escitalopram 10 mg Tab) See instructions TAKE 1.5 TABLETS BY MOUTH DAILY Unchanged flecainide (flecainide 50 mg Tab) 60 EA, 0 Refill(s), TAKE 1 TABLET BY MOUTH TWICE A DAY Unchanged lisinopril (lisinopril 5 mg Tab) 1 Tablets By Mouth Every day Duration: 90 Days Unchanged lorazepam (Ativan 0.5 mg Tab) 1 Tablets By Mouth 3 times a day as needed for anxiety Anxiety, generalized duration 30 days Unchanged meclizine (meclizine 12.5 mg Tab) 1 Tablets By Mouth 3 times a day as needed for for dizziness Unchanged metoprolol (metoprolol succinate 25 mg ER Tab) 1 Tablets By Mouth Every day Pharmacy Information [facility]/pharmacy #[id number]: [address], [place] [id number] [phone] Allergies No Known Allergies No Known Medication Allergies Problems Ongoing - Any problem that you are currently receiving treatment for. 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 Atrial fibrillation Cerebrovascular small vessel disease Class 2 obesity due to excess calories in adult Cystitis with hematuria Dense breast tissue on mammogram Dizziness Eczema of external ear Edema of optic disc of right eye Generalized anxiety disorder Hyperlipemia, mixed Hypertension IBS (irritable bowel syndrome) Left lumbar radiculopathy Left retinal detachment Low vitamin D level Major depressive disorder, single episode, mild KEREN (obstructive sleep apnea) Osteopenia of multiple sites Sensory neuropathy Supraventricular tachycardia Historical - Any problem that you are no longer receiving treatment for. Chronic uveitis Herpes zoster Primary ovarian failure Splenic vein thrombosis Patient Survey You may receive a survey via text or e-mail asking about your office visit. Please share your experience with us by completing your survey. We appreciate your feedback and thank you for choosing us for your care. Patient Portal You may access all of your results and other medical record information on our secure patient portal. If you are not signed up for this yet, please contact [employer] at [phone] to get signed up today. Language Information Language assistance services are available as needed. [facility] Medicine Office/Clinic Noteon [id number] Medicine Office/Clinic NoteMiravista Behavioral [facility] Medicine Office/Clinic Note Chief Complaint Patient presents today for hematuria, abdominal pain, and headaches. Patient stated symptoms started about a week ago. The patient reports blood in the urine and lower abdominal pain. History of Present Illness The patient is a 69-year-old female presenting with blood in the urine and lower abdominal pain. She has experienced intermittent episodes of gross hematuria, with urine appearing pretty red at times, which started again last and has occurred for three consecutive days, though not consistently with every urination. Previously, she was evaluated for similar symptoms in May, which were initially suspected to be a urinary tract infection (UTI), but this was later ruled out. The patient has a history of colon cancer, diagnosed approximately six years ago, and she is currently under regular follow-up with her oncologist. During a recent check-up, her oncologist noted low iron levels, leading to three iron infusions. A colonoscopy was performed to investigate potential bleeding sources, but no abnormalities were found. The patient reports a slight burning sensation post-urination, which is not severe and resolves quickly. There is a suspicion of a possible UTI due to the presence of white blood cells in the urine, and a urine culture has been ordered to confirm this. A referral to a urologist has been made for further evaluation of the recurrent hematuria. Review of Systems PHQ Score Initial Depression Screen Score: 0 SCORE See HPI otherwise negative. Physical Exam Vitals & Measurements HR: 58(Peripheral) RR: 16 BP: 150/88 SpO2: 97% HT: 167.6 cm HT: 66 in WT: 98.8 kg WT: 217.816 lb BMI: 35.17 Constitutional: Well-groomed, well-nourished, no signs of acute distress. HEENT: Head normocephalic, sclera is clear. Cardiothoracic: Heart rate and rhythm is regular strong, normal S1 and S2. No murmurs, rubs, or bruits auscultated. No peripheral edema, peripheral pulses +2 Respiratory: Lung sounds are clear throughout, respirations regular nonlabored. Abdomen/GI: Abdomen soft nondistended; no tenderness with palpation noted today. Musculoskeletal: Gait is steady, full range of motion. Integument: No rashes or lesions noted to the exposed skin. Psychiatric: Alert and oriented x 3, pleasant, no mood changes. Assessment/Plan 1. Gross hematuria (R31.0: Gross hematuria) A referral to a urologist has been made for further evaluation of the recurrent gross hematuria, asthe source of bleeding remains unidentified despite previous investigations. Ordered: [facility] External Ambulatory Referral 2. Cystitis with hematuria (N30.91: Cystitis, unspecified with hematuria) A urine culture has been ordered to confirm the presence of a urinary tract infection, given the presence of white blood cells in the urine and the patient's symptoms of burning post-urination. Empirical treatment with Bactrim has been initiated to address the potential infection, especially considering the upcoming weekend and the patient's previous positive response to this medication. Ordered: Body Mass Index (BMI) documented 3008F Current tobacco non-user 1036F Depression Screening Negative 3352F [facility] External Ambulatory Referral Most recent diastolic blood pressure 80-89 mm Hg 3079F Most recent systolic blood pressure >= 140 mm Hg 3077F Patient screen for fall risk: no falls in last year or 1 fall with no injury in last year 1101F Urine Culture Urnls Dip Stick Auto w/o Microscopy POC 83444 3. Pain in the abdomen (R10.9: Unspecified abdominal pain) The abdominal pain is being monitored in conjunction with the evaluation for hematuria, as it may be related to the underlying urological issue. Ordered: Body Mass Index (BMI) documented 3008F Current tobacco non-user 1036F Depression Screening Negative 3352F [facility] External Ambulatory Referral Most recent diastolic blood pressure 80-89 mm Hg 3079F Most recent systolic blood pressure >= 140 mm Hg 3077F Patient screen for fall risk: no falls in last year or 1 fall with no injury in last year 1101F Urine Culture Urnls Dip Stick Auto w/o Microscopy POC 44202 4. BMI 35.0-35.9,adult (Z68.35: Body mass index [BMI] 35.0-35.9, adult) The standard range for ages 18 and older is >=18.5 and < 25 kg/m2. Your BMI today was above this range, this falls in the overweight to obese category and there are medical benefits to weight loss. We can offer counselling, referral, and/or medical support in addressing this problem. Your BMIand weight management will be followed at subsequent visits. Ordered: [facility] External Ambulatory Referral 5. Obesity due to excess calories (E66.09: Other obesity due to excess calories) See #4 Ordered: [facility] External Ambulatory Referral Orders: sulfamethoxazole-trimethoprim, 1 tab(s), Oral, BID for 7 day(s), 14 tab(s), Refill(s) 0, [id number], 167.6, cm, 11/07/24 11:48:00 EDT, Height/Length Dosing, 98.8, kg, (more content not included)...[facility] EastComment on above:Result Comment: Electronically Signed By: Jose YEH, Mary Jeong.br\Date and Time Signed: 11/07/24 13:06 EDTOCT ANGIOGRAPHY OU (BOTH EYES)on [id number] ClinicRadiology Study observation (narrative) [facility] (BOTH EYES)on [id number] Clinic Radiology Study observation (narrative)[facility] with Auto Differentialon [id number] (Bld) [#/Vol]0.05 10*3/uLBon Secours Mercy HealthBasophils/100 WBC (Bld)1 %0 - 2 %[facility] HealthEosinophils (Bld) [#/Vol]0.19 10*3/uLBon Secours Mercy HealthEosinophils/100 WBC (Bld)3 %1 - 4 % [facility] HealthErythrocyte distribution width (RBC) [Ratio]19.7 %High 11.8 - 14.4 %[facility] HealthHematocrit (Bld) [Volume fraction]38.5 % 36.3 - 47.1 %[facility] HealthHemoglobin (Bld) [Mass/Vol]11.8 g/dLLow11.9 - 15.1 g/dLBon Secours Mercy HealthImmature granulocytes (Bld) [#/Vol]0.03 10*3/uLBon Secours Mercy HealthImmature granulocytes/100 WBC (Bld)0 %0[facility] HealthInterpretation and review of laboratory resultsAbnormalBon Secours Mercy HealthLymphocytes/100 WBC (Bld)35 %24 - 43 %[facility] HealthLymphocytes/100 WBC (Bld)2.4 %[facility] PatrickH (RBC) [Entitic mass]25.7 pg25.2 - 33.5 pgPioneer Community Hospital of PatrickHC (RBC) [Mass/Vol]30.6 g/dL 28.4 - 34.8 g/dLBon [facility] HospitalV (RBC) [Entitic vol]83.7 fL82.6 - 102.9 fLCarilion Roanoke Memorial HospitalMonocytes/100 WBC (Bld)6 %3 - 12 %Bon [facility] HospitalMonocytes/100 WBC (Bld)0.43 %[facility] HospitalNeutrophils/100 WBC (Bld)55 %36 - 65 %[facility] HospitalNucleated RBC/100 WBC (Bld) [Ratio]0 %0.0 per 100 WBCCarilion Roanoke Memorial HospitalPlatelet mean volume (Bld) [Entitic vol]9.4 fL8.1 - 13.5 fLCarilion Roanoke Memorial HospitalPlatelets (Bld) [#/Vol] 232 10*3/uLBon [facility] Flower HospitalRBC (Bld) [#/Vol]4.6 10*6/uL3.95 - 5.11 m/uL [facility] HospitalSegmented neutrophils/100 WBC (Bld)3.72 %[facility] HospitalWBC other (Bld) [#/Vol]6.8Bon [facility] HealthCBC with Diffon [id number]. Basophil0.05 k/uLNormal0.00-0.20[facility] Medical CenterComment on above:Performed By: #### CEA #### [employer] [address] [place] [address] [employer] Officer: Daniel Malone MD #### FELIPE LE #### [facility] [address] [place] [address] [employer]: Kelsie Pedro MDAbs.Imm.Granulocyte0.03 k/uLNormal0.00-0.30[facility] Medical CenterComment on above:Performed By: #### CEA #### [address] [address] [employer]: Daniel Malone MD #### CDP, CP #### [address] [place], [place] [id number] [employer]: Karli Donald.Neutrophil (Seg)3.72 k/uLNormal1.50-8.10[facility] Medical CenterComment on above:Performed By: #### CEA #### [address] [address] [employer]: Daniel Malone MD #### CDP, CP #### [address] [place] [address] [employer]: Kelsie Pedro MDBasophils/100 WBC (Bld)1 %Normal0-2MChildren's Hospital of ColumbusComment on above:Performed By: #### CEA #### [address] [address] [employer]: Daniel Malone MD #### CDP, CP #### [address] [place] [address] [employer]: Kelsie Pedro MDEosinophils (Bld) [#/Vol]0.19 10*3/uLNormal 0.00-0.44[facility] Medical CenterComment on above:Performed By: #### CEA #### [address] [address] [employer]: Daniel Malone MD #### CDP, CP #### [address] [place], [place] 12[address] [employer]: Kelsie Pedro MDEosinophils/100 WBC (Bld)3 %Normal1-4[facility] Medical CenterComment on above:Performed By: #### CEA #### [address] [address] [employer]: Daniel Malone MD #### CDP, CP #### [address] [place] [address] [employer]: Kelsie Pedro MDErythrocyte distribution width (RBC) [Ratio]19.7 % High11.8-14.4[facility] Medical CenterComment on above:Performed By: #### CEA #### [address] [address] [employer]: Daniel Malone MD #### CDP, CP #### [address] [place] [address] [employer]: Kelsie Pedro MDHematocrit (Bld) [Volume fraction]38.5 %Normal 36.3-47.1MercFirelands Regional Medical Center HospitalComment on above:Performed By: #### CEA #### [address] [address] [employer]: Daniel Malone MD #### CDP, CP #### [address] [place] [address] [employer]: Kelsie Pedro MDHemoglobin (Bld) [Mass/Vol]11.8 g/dLLow11.9-15.1 [facility] CenterComment on above:Performed By: #### CEA #### [address] [address] [employer]: Daniel Malone MD #### CDP, CP #### [address] [place] [address] [employer]: Kelsie Pedro MDImmature granulocytes/100 WBC (Bld)0 %Rocwdk1Tecyl Tiffin HospitalComment on above:Performed By: #### CEA #### [address] [address] [employer]: Daniel Malone MD #### CDP, CP #### [address] [place] [address] [employer]: Kelsie Pedro MDLymphocytes (Bld) [#/Vol]2.40 10*3/uLNormal 1.10-3.70[facility] CenterComment on above:Performed By: #### CEA #### [address] [address] [employer]: Daniel Malone MD #### CDP, CP #### [address] [place] [address] [employer]: Kelsie Pedro MDLymphocytes/100 WBC (Bld)35 %Zzlskp53-65BhdmtCommunity Regional Medical CenterComment on above:Performed By: #### CEA #### [address] [address] [employer]: Daniel Malone MD #### CDP, CP #### [address] [place] [address] ( [employer]: ROBERTO Donald (RBC) [Entitic mass]25.7 ynPucxzu25.2-33.5 [facility] CenterComment on above:Performed By: #### CEA #### [address] [address] [employer]: Daniel Malone MD #### CDP, CP #### [address] [place] [address] [employer]: ROBERTO DonaldC (RBC) [Mass/Vol]30.6 g/aBBicgci01.4-34.8[facility] CenterComment on above:Performed By: #### CEA #### [address] [address] [employer]: Daniel Malone MD #### CDP, CP #### [facility] [address] [place], [place] [address] [employer]: OCTAVIA DonaldCV (RBC) [Entitic vol]83.7 bNYrdoyt84.6-102.9 [facility] HospitalComment on above:Performed By: #### CEA #### [address] [address] [employer]: Daniel Malone MD #### CDP, CP #### [address] [place] [address] [employer]: OCTAVIA Donaldonocytes (Bld) [#/Vol]0.43 10*3/uLNormal0.10-1.20 [facility] HospitalComment on above:Performed By: #### CEA #### [address] [address] [employer]: Daniel Malone MD #### CDP, CP #### [address] [place] [address] [employer]: OCTAVIA Donaldonocytes/100 WBC (Bld)6 %Normal3-12[facility] HospitalComment on above:Performed By: #### CEA #### [address] [address] [employer]: Daniel Malone MD #### CDP, CP #### [address] [place] [address] [employer]: Kelsie Pedro MDNeutrophil (Seg)55 %Pphstk20-10Loqgn Tiffin HospitalComment on above:Performed By: #### CEA #### [address] [address] [employer]: Daniel Malone MD #### CDP, CP #### [address] [place] [address] [employer]: Kelsie Pedro MDNRBC Automated0.0 per 100 WBCNormal0.0[facility] on above:Performed By: #### CEA #### [address] [address] [employer]: Daniel Malone MD #### CDP, CP #### [address] [place] [address] [employer]: Sammy Donald mean volume (Bld) [Entitic vol]9.4 fL Normal8.1-13.5[facility] Medical CenterComment on above:Performed By: #### CEA #### [address] [address] [employer]: Daniel Malone MD #### CDP, CP #### [address] [place] [address] [employer]: Kaycee Donaldlets (Bld) [#/Vol]232 10*3/eBYdsrkb188-955 [facility] CenterComc.[facility] on above:Performed By: #### CEA #### [address] [address] [employer]: Daniel Malone MD #### CDP, CP #### [address] [place] [address] [employer]: IVAN Donald (Bld) [#/Vol]4.60 10*6/uLNormal3.95-5.11[facility] on above:Performed By: #### CEA #### [address] [address] [employer]: Daniel Malone MD #### CDP, CP #### [address] [place], [place] [address] [employer]: Kelsie Pedro MDWBC (Bld) [#/Vol]6.8 10*3/uLNormal3.5-11.3[facility] on above:Performed By: #### CEA #### [address] [id number] [employer]: Daniel Malone MD #### REY, CP #### [address] [place] [address] [employer]: ANAHY DonaldEA [id number] Ag [Mass/Vol]4.6 ng/mLHigh0.0 - 3.8 ng/mLBon [facility] on above:The Andres ECLIA assay is used. Results obtained with different assay methods cannot be used interchangeably. Interpretation and review of laboratory resultsAbnormalBon [facility] Bon [facility] Flower HospitalCarcinoembry. Antig.on [id number]. Antig.4.6 ng/mLHigh0.0-3.8MerYale New Haven Hospital on above:Result Comment: The Andres ECLIA assay is used. Results obtained with different assay methods cannot be used interchangeably.Performed By: #### CEA #### [address] [id number] [employer]: Daniel Malone MD #### REY, CP #### [address] [place] [address] [employer] Officer: ANAHY Donaldalta view hospital Metabolic Profon [id number] [Mass/Vol] 4.1 g/dLNormal3.5-5.2Bon [facility] on above:Performed By: #### CEA #### [address] [id number] [employer]: Daniel Malone MD #### CDP, CP #### [address] [place], [place] 437[address] [employer]: Kelsie Pedro MDALT [Catalytic activity/Vol]24 U/CLasqbr54-07[facility] on above:Performed By: #### CEA #### [address] [address] [employer]: Daniel Malone MD #### CDP, CP #### [address] [place], [place] 77[address] [employer]: Rey Donald gap [Moles/Vol]11 mmol/LNormal9-16Bon [facility] on above:Performed By: #### CEA #### [address] [address] [employer]: Daniel Malone MD #### CDP, CP #### [address] [place], [place] 164[address]383 [employer]: Kelsie Pedro MDAST [Catalytic activity/Vol]27 U/UOkpmbt46-92Kfc SecFort [facility] Hospital on above:Performed By: #### CEA #### [address] [address] [employer]: Daniel Malone MD #### CDP, CP #### [address] [place], [place] [address]83 [employer]: Kelsie Pedor MDBilirubin [Mass/Vol]0.9 mg/dLNormal0.00-1.20Bon [facility] on above:Performed By: #### CEA #### [address] [address] [employer]: Daniel Malone MD #### CDP, CP #### [address] [place], [place] 12[address]83 [employer]: ANAHY Donaldalcium [Mass/Vol]8.9 mg/dLNormal8.6-10.4Bon SecBucyrus Community HospitalComc.s[facility] on above:Performed By: #### CEA #### [address] [address] [employer]: Daniel Malone MD #### CDP, CP #### [address] [place] [address] [employer]: ANAHY Donaldhloride [Moles/Vol]107 mmol/QCtccoa50-333Uty SecBucyrus Community HospitalComc.[facility] on above:Performed By: #### CEA #### [address] [address] [employer]: Daniel Malone MD #### CDP, CP #### [address] [place] [address] [employer] Officer: ANAHY DonaldO2 [Moles/Vol]24 mmol/SLulhfm71-89Wgf SecFort [facility] Hospital on above:Performed By: #### CEA #### [address] [address] [employer]: Daniel Malone MD #### CDP, CP #### [address] [place] [address] [employer] Officer: ANAHY Donaldreatinine [Mass/Vol]1.2 mg/dLHigh0.50-0.90Bon [facility] on above:Performed By: #### CEA #### [address] [address] [employer]: Daniel Malone MD #### CDP, CP #### [address] [place] [address] [employer]: Kelsie Pedro MDGlucose [Mass/Vol]126 mg/oXKjag19-11Swz [facility] on above:Performed By: #### CEA #### [address] [address] [employer]: Daniel Malone MD #### CDP, CP #### [address] [place], [place] [address]83 [employer] Officer: JOCELYNN Donaldotassium [Moles/Vol]3.9 mmol/LNormal3.7-5.3Bon [facility] on above:Performed By: #### CEA #### [address] [address] [employer]: Daniel Malone MD #### CDP, CP #### [address] [place] [address] [employer] Officer: JOCELYNN Donaldrotein [Mass/Vol]6.9 g/dLNormal6.6-8.7[facility] on above:Performed By: #### CEA #### [address] [address] [employer]: Daniel Malone MD #### CDP, CP #### [address] [place] [address] [employer] Officer: BRIANNA Donaldodium [Moles/Vol]142 mmol/GRyapjc016-299Nxj [facility] on above:Performed By: #### CEA #### [address] [address] [employer]: Daniel Malone MD #### CDP, CP #### [address] [place], [place] [address] [employer]: Kelsie Pedro MDUrea nitrogen [Mass/Vol]15 mg/dLNormal8-23Bon [facility] on above:Performed By: #### CEA #### [place] [address] [place] [address] [employer]: Daniel Malone MD #### CDP, CP #### [address] [place], [place] [address]83 [employer]: Kelsie Pedro MDAlbumin/Glob Ratio1.6Xmqbyy7.0-2.5[facility] Medical CenterComment on above:Performed By: #### CEA #### [address] [address] [employer]: Daniel Malone MD #### CDP, CP #### [address] [place], [place] 19[address]83 [employer] Officer: Rosalee Donaldline Tfvs628 U/SWxsp72-924CmlvvCommunity Regional Medical CenterComment on above:Performed By: #### CEA #### [address] [address] [employer]: Daniel Malone MD #### CDP, CP #### [address] [place], [place] 486[address] [employer] Officer: Kelsie Pedro MDBUN/CRE Ohbsw40Jrgura6-70Gjkqa [facility] Comment on above:Performed By: #### CEA #### [address] [address] [employer]: Daniel Malone MD #### CDP, CP #### [address] [place], [place] 737[address] [employer] Officer: Kelsie Pedro MDGFR/1.73 sq M.predicted among non-blacks MDRD (S/P/Bld) [Vol rate/Area]51 mL/min/{1.73_m2}Low>60[facility] Medical CenterComment on above:Result Comment: These results are not intended for use in patients <18 years of age. eGFR results are calculated without a race factor using the 2020 CKD-EPI equation. Careful clinical correlation is recommended, particularly when comparing to results calculated using previous equations. The CKD-EPI equation is less accurate in patients with extremes of muscle mass, extra-renal metabolism of creatine, excessive creatine ingestion, or following therapy that affects renal tubular secretion.Performed By: #### CEA #### [employer] [address] [place] [address] [employer]: Daniel Malone MD #### REY, FELIPE #### [facility] [address] [place] [address] [employer] Officer: Kelsie Pedro [facility] TULSAompparkview health bryan hospitalensive Metabolic Panelon 10-22-2024 Albumin/Globulin [Mass ratio]1.5 {ratio}1.0 - 2.5Bon [facility] Luke'S HospitalAnthology SolutionsALP [Catalytic activity/Vol]117 U/LHigh35 - 104 U/LBon [facility] [address] Luke'S HospitalAnthology SolutionsEst, Glom Filt Whbi17Fhw- PINFBon [facility] VirtuixComment on above: These results are not intended for use in patients <18 years of age. eGFR results are calculated without a race factor using the 2020 CKD-EPI equation. Careful clinical correlation is recommended, particularly when comparing to results calculated using previous equations. The CKD-EPI equation is less accurate in patients with extremes of muscle mass, extra-renal metabolism of creatine, excessive creatine ingestion, or following therapy that affects renal tubular secretion. Interpretation and review of laboratory resultsAbnormalCentra Lynchburg General HospitalAnthology Solutions Urea nitrogen/Creatinine [Mass ratio]13 mg/mg9 - 20Centra [facility] HospitalAnthology SolutionsCentra Lynchburg General HospitalAnthology SolutionsCardiac echo study ProcedureOrdered By: Ignacio Concepcion on 94-24-3310Sr Root Index0.98 cm/m2[facility] [employer] Work Phone: Aortic Root2 cmBullhead Community Hospital [employer] Work Phone: Aortic Sinus Valsalva3 cmBullhead Community Hospital [employer] Work Phone: Aortic Sinus Valsalva Index1.46 cm/m2[facility] [employer] Work Phone: Ascending Aorta3 cmBon [employer] Work Phone: [phone] Aorta Index1.46 cm/m2Bon [employer] Work Phone: [phone] Cusp Mmode1.7 cmBon [employer] Work Phone: [phone] Mean Uvlokrtv4kpTuXvp [employer] Work Phone: [phone] Mean Velocity1 m/sBon [facility]Anth[facility] Work Phone: [phone] Peak Rglmfdeb7ybVoFge [employer] Work Phone: [phone] Peak Velocity1.5 m/sBon [facility]Anth[facility] Work Phone: [phone] Velocity Ratio0.6Bon [employer] Work Phone: AV VTI33.3 cmBullhead Community Hospital [employer] Work Phone: Body surface area Derived from formula2.13 m2Bon [employer] Work Phone: [phone]/E' Lateral9.39Bon [employer] Work Phone: EF BP57 %55 - 100 %[employer] Work Phone: EF Zhdqgvrxg34 %[employer] Work Phone: Est. RA Fqseciar1aeVqStv [employer] Work Phone: Fractional Shortening 2D32 %28 - 44 %[employer] Work Phone: Interpretation and review of laboratory results AbnormalBon [employer] Work Phone: [phone] cmAbnormal0.6 - 0.9 cmK[employer]ia Work Phone: LA Area 2C19 cm2Bon [employer] Work Phone: LA Area 4C17.6 cm2Bon [employer] Work Phone: LA Major Axis5.3 cmBon [employer] Work Phone: LA Minor Axis4.8 cmBon [facility] Work Phone: LA Volume BP55 oFHegodkhx79 - 52 mLBon [employer] Work Phone: [phone] Volume Index BP27 ml/m216 - 34 ml/m2Bon [employer] Work Phone: [phone] Volume Index MOD A2C29 ml/m216 - 34 ml/m2Bon [employer] Work Phone: [phone] Volume Index MOD A4C22 ml/m216 - 34 ml/m2Bon [employer] Work Phone: [phone] Volume MOD A2C60 bHDphsbxaa21 - 52 mLK[employer] Work Phone: [phone] Volume MOD A4C46 mL22 - 52 mLK[employer]ia Work Phone: LV E' Lateral Velocity5.22 cm/sBon [employer] Work Phone: [phone] EDV A2C85 mLK[employer] Work Phone: [phone] EDV A4C76 mLK[employer] Work Phone: [phone] EDV Index A2C41 mL/m2[employer] Work Phone: [phone] EDV Index A4C37 mL/m2[employer] Work Phone: LV Ejection Fraction A2C56 %[employer] Work Phone: [phone] Ejection Fraction A4C60 %[employer] Work Phone: [phone] ESV A2C37 mLK[employer]ia Work Phone: [phone] ESV A4C31 mLK[employer]ia Work Phone: [phone] ESV Index A2C18 mL/m2Bon [employer] Work Phone: [phone] ESV Index A4C15 mL/m2[employer] Work Phone: LV Mass 2D220.3 jKvuqsmnj30 - 162 gBon [facility] Work Phone: LV Mass 2D Hdcgy212.4 g/x1Mnjtymzw88 - 95 g/m2Bon [facility] Work Phone: LV RWT Ratio0.44Bon [facility] [employer] Work Phone: [phone] cm3.9 - 5.3 cmBon SecZ[facility] Work Phone: LVIDd Index2.44 cm/m2Bon [facility] Work Phone: [phone] cmBon [facility]Anth[facility] Work Phone: LVIDs Index1.66 cm/m2Bon [facility] Work Phone: LVOT Mean Vizguzup4djHgFkm [employer] Work Phone: LVOT Peak Hdmqxdfp7lqZpXhpKimbia Work Phone: LVOT Peak Velocity0.9 m/sBon [facility] Work Phone: LVOT VTI19.2 cmBon [employer] Work Phone: [phone]:AV VTI Index0.58Bon [employer] Work Phone: [phone] cmAbnormal0.6 - 0.9 cmBon [employer] Work Phone: [phone] A Velocity0.84 m/sBon [facility] Work Phone: MV E Velocity0.49 m/sBon [facility] Work Phone: [phone] E Wave Deceleration Skme718 msBon [employer] Work Phone: [phone] E/A0.58Bon [facility] Work Phone: PV Max Velocity0.9 m/sBon [facility] Work Phone: [phone] Peak Rizzlylq2qeOtPrk [employer] Work Phone: [phone] [employer] Work Phone: Sinotubular Junction2.1 cmBon [facility] Phone: TAPSE2.2 cm1.7 cmBon [facility] Phone: TR Max Velocity1.71 m/sBon [facility] Phone: TR Peak Dzwesfrn51atUhOxi [facility] Phone: Bon [facility] Phone: Cardiac echo study Procedureon [id number] Ventricle: Normal left ventricular systolic function with a visually estimated EF of 55 - 60%. Mildly increased wall thickness. Normal wall motion. Grade I diastolic dysfunction with normal LAP. Mitral Valve: Mild to moderate regurgitation. Tricuspid Valve: Trace regurgitation. RVSP is 15 mmHg. Left Atrium: Left atrium size is normal. Image quality is adequate. Compared to the previous study on 04/04/23, no significant change was seen. Left Ventricle Normal left ventricular systolic function with a visually estimated EF of 55 - 60%. Mildly increased wall thickness. Normal wall motion. Grade I diastolic dysfunction with normal LAP. Right Ventricle Right ventricle size is normal. Normal systolic function. Left Atrium Left atrium size is normal. Right Atrium Right atrium size is normal. IVC/SVC IVC diameter is normal or and decreases greater than 50% during inspiration; therefore the estimated right atrial pressure is normal (~3 mmHg). IVC size is normal. Mitral Valve Valve structure is normal. Mild to moderate regurgitation. No stenosis noted. Tricuspid Valve Valve structure is normal. Trace regurgitation. RVSP is 15 mmHg. No stenosis noted. Aortic Valve Valve structure is normal. No regurgitation. No stenosis. Pulmonic Valve The pulmonic valve visualization is suboptimal but appears to be functioning normally. Physiologically normal regurgitation. No stenosis noted. Ascending Aorta Normal sized aortic root and ascending aorta. Aortic Sinus Valsalva is 3.0 cm. Ascending Aorta is 3.0 cm. Pericardium No pericardial effusion. Study Details Image quality: adequate. No contrast was given.[facility] CV CPACSRadiology Study observation (narrative)Dougie AsurintCEAogio [id number] Ag [Mass/Vol]4.4 ng/mLHigh0.0 - 3.8 ng/mLBon Prom[facility] Flower HospitalComment on above:The Andres ECLIA assay is used. Results obtained with different assay methods cannot be used interchangeably. Interpretation and review of laboratory resultsAbnormalBon [facility] Bon [facility] Flower HospitalCarcinoembry. Antig.on [id number]. Antig.4.4 ng/mLHigh0.0-3.8MerStamford HospitalComc.s. [facility] on above:Result Comment: The Andres ECLIA assay is used. Results obtained with different assay methods cannot be used interchangeably.Performed By: #### CEA #### [facility] [address] [place] [address] [employer]: Daniel Malone MD #### CP, CDP #### [facility] [address] [place] [address] [employer] Officer: Kelsie Pedro [facility] with Auto Differentialon [id number] (Bld) [#/Vol]0.05 10*3/uLBon [facility] Flower HospitalBasophils/100 WBC (Bld)1 %0 - 2 %[facility] HospitalEosinophils (Bld) [#/Vol]0.14 10*3/uLBon [facility] HospitalEosinophils/100 WBC (Bld)2 %1 - 4 %[facility] HospitalErythrocyte distribution width (RBC) [Ratio]15.4 %High11.8 - 14.4 %[facility] Hematocrit (Bld) [Volume fraction]30.4 %Low36.3 - 47.1 %[facility] Hemoglobin (Bld) [Mass/Vol]9.2 g/dLLow11.9 - 15.1 g/dLBon [facility] Immature granulocytes (Bld) [#/Vol][facility] HospitalImmature granulocytes/100 WBC (Bld)0 %0[facility] HospitalInterpretation and review of laboratory resultsAbnormalCarilion Roanoke Memorial HospitalLymphocytes/100 WBC (Bld)37 %24 - 43 %[facility] HospitalLymphocytes/100 WBC (Bld)2.13 %[facility] PatrickH (RBC) [Entitic mass]23.7 pgLow25.2 - 33.5 pgPioneer Community Hospital of PatrickHC (RBC) [Mass/Vol]30.3 g/dL28.4 - 34.8 g/dLBon [facility] HospitalV (RBC) [Entitic vol]78.4 fLLow82.6 - 102.9 fLCarilion Roanoke Memorial Hospital Monocytes/100 WBC (Bld)7 %3 - 12 %[facility] HospitalMonocytes/100 WBC (Bld)0.41 %[facility] HospitalNeutrophils/100 WBC (Bld)53 %36 - 65 %[facility] HospitalNucleated RBC/100 WBC (Bld) [Ratio]0 %0.0 per 100 WBCCarilion Roanoke Memorial HospitalPlatelet mean volume (Bld) [Entitic vol]9.9 fL8.1 - 13.5 fL [facility] HospitalPlatelets (Bld) [#/Vol]281 10*3/uLCarilion Roanoke Memorial HospitalRBC (Bld) [#/Vol]3.88 10*6/uLLow3.95 - 5.11 m/uLCarilion [facility]an[facility] Hospital Segmented neutrophils/100 WBC (Bld)3.05 %[facility] HospitalWBC other (Bld) [#/Vol]5.8Bon [facility] HealthCBC with Diffon [id number]. Basophil0.05 k/uLNormal0.00-0.20[facility] Medical CenterComment on above:Performed By: #### CEA #### [facility] [employer] [address] [place] [address] [employer]: Daniel Malone MD #### CP, REY #### [facility] [address] [place] [address] [employer] Officer: Karli Donald.Imm.Granulocyte<0.25Rfkdde2.00-0.30Mercy Ramer HospitalComment on above:Performed By: #### CEA #### [address] [place] [address] [employer]: Daniel Malone MD #### CP, CDP #### [address] [place], [place] [address] [employer]: Karli Donald.Neutrophil (Seg)3.05 k/uLNormal1.50-8.10[facility] HospitalComment on above:Performed By: #### CEA #### [address] [address] [employer]: Daniel Malone MD #### CP, CDP #### [address] [place] [address] [employer]: Kelsie Pedro MDBasophils/100 WBC (Bld)1 %Normal0-2MOhioHealth Dublin Methodist Hospital HospitalComment on above:Performed By: #### CEA #### [address] [address] [employer]: Daniel Malone MD #### CP, CDP #### [address] [place] [address] [employer]: Kelsie Pedro MDEosinophils (Bld) [#/Vol]0.14 10*3/uLNormal 0.00-0.44[facility] Medical CenterComment on above:Performed By: #### CEA #### [address] [address] [employer]: Daniel Malone MD #### CP, CDP #### [address] [place] [address] [employer]: Kelsie Pedro MDEosinophils/100 WBC (Bld)2 %Normal1-4[facility] HospitalComment on above:Performed By: #### CEA #### [address] [address] [employer]: Daniel Malone MD #### CP, CDP #### [address] [place], [place] [address] [employer]: Kelsie Pedro MDErythrocyte distribution width (RBC) [Ratio]15.4 % High11.8-14.4[facility] Medical CenterComment on above:Performed By: #### CEA #### [address] [address] [employer]: Daniel Malone MD #### CP, CDP #### [address] [place] [address] [employer]: Kelsie Pedro MDHematocrit (Bld) [Volume fraction]30.4 %Low 36.3-47.1MChildren's Hospital of ColumbusComment on above:Performed By: #### CEA #### [address] [address] [employer]: Daniel Malone MD #### CP, CDP #### [address] [place] [address] [employer]: Kelsie Pedro MDHemoglobin (Bld) [Mass/Vol]9.2 g/dLLow11.9-15.1 [facility] CenterComment on above:Performed By: #### CEA #### [address] [address] [employer]: Daniel Malone MD #### CP, CDP #### [address] [place], [place] [address] [employer]: Kelsie Pedro MDImmature granulocytes/100 WBC (Bld)0 %Rznduu8BddvzCommunity Regional Medical CenterComment on above:Performed By: #### CEA #### [address] [address] [employer]: Daniel Malone MD #### CP, CDP #### [address] [place] [address] [employer]: Kelsie Pedro MDLymphocytes (Bld) [#/Vol]2.13 10*3/uLNormal 1.10-3.70[facility] HospitalComment on above:Performed By: #### CEA #### [address] [address] [employer]: Daniel Malone MD #### CP, CDP #### [address] [place] [address] [employer]: Kelsie Pedro MDLymphocytes/100 WBC (Bld)37 %Pfpsyo54-90HgernCommunity Regional Medical CenterComment on above:Performed By: #### CEA #### [address] [address] [employer]: Daniel Malone MD #### CP, CDP #### [address] [place] [address] [employer]: ROBERTO Donald (RBC) [Entitic mass]23.7 pgLow25.2-33.5[facility] Medical CenterComment on above:Performed By: #### CEA #### [address] [address] [employer]: Daniel Malone MD #### CP, CDP #### [address] [place] [address] [employer] Officer: ROBERTO DonaldC (RBC) [Mass/Vol]30.3 g/nFVclrlx01.4-34.8[facility] HospitalComment on above:Performed By: #### CEA #### [address] [address] [employer]: Daniel Malone MD #### CP, CDP #### [address] [place] [address] [employer]: Kelsie Pedro MDMCV (RBC) [Entitic vol]78.4 fLLow82.6-102.9[facility] Medical CenterComment on above:Performed By: #### CEA #### [address] [address] [employer]: Daniel Malone MD #### CP, CDP #### [address] [place] [address] [employer]: OCTAVIA Donaldonocytes (Bld) [#/Vol]0.41 10*3/uLNormal0.10-1.20 [facility] CenterComment on above:Performed By: #### CEA #### [address] [address] [employer]: Daniel Malone MD #### CP, CDP #### [address] [place] [address] [employer]: OCTAVIA Donaldonocytes/100 WBC (Bld)7 %Normal3-12[facility] Medical CenterComment on above:Performed By: #### CEA #### [address] [address] [employer]: Daniel Malone MD #### CP, CDP #### [address] [place] [address] [employer]: Kelsie Pedro MDNeutrophil (Seg)53 %Vjdpqt44-81KucdpCommunity Regional Medical CenterComment on above:Performed By: #### CEA #### [address] [address] [employer]: Daniel Malone MD #### CP, CDP #### [address] [place] [address] [employer]: Kelsie Pedro MDNRBC Automated0.0 per 100 WBCNormal0.0[facility] Medical CenterComc.s. [facility] on above:Performed By: #### CEA #### [address] [address] [employer]: Daniel Malone MD #### CP, CDP #### [address] [place] [address] [employer]: Sammy Donald mean volume (Bld) [Entitic vol]9.9 fL Normal8.1-13.5[facility] Medical CenterComment on above:Performed By: #### CEA #### [address] [address] [employer]: Daniel Malone MD #### CP, CDP #### [address] [place] [address] [employer]: Feliz Donald (Bld) [#/Vol]281 10*3/jSSnxcsl178-497 [facility] CenterComc.s. [facility] on above:Performed By: #### CEA #### [address] [address] [employer]: Daniel Malone MD #### CP, CDP #### [address] [place] [address] [employer]: IVAN Donald (Bld) [#/Vol]3.88 10*6/uLLow3.95-5.11[facility] Medical CenterComc.s. [facility] on above:Performed By: #### CEA #### [address] [address] [employer]: Daniel Malone MD #### CP, CDP #### [address] [place], [place] [address] [employer]: Kelsie Pedro MDWBC (Bld) [#/Vol]5.8 10*3/uLNormal3.5-11.3MChildren's Hospital of ColumbusComment on above:Performed By: #### CEA #### [address] [address] [employer]: Daniel Malone MD #### CP, CDP #### [address] [place], [place] [address] [employer]: ANAHY Donaldomp Metabolic Profon [id number] [Mass/Vol] 3.8 g/dLNormal3.5-5.2MChildren's Hospital of ColumbusComment on above:Performed By: #### CEA #### [address] [address] [employer]: Daniel Malone MD #### CP, CDP #### [address] [place], [place] [address] [employer]: Kelsie Pedro MDAlbumin/Glob Ratio1.6Wshdcg6.0-2.5[facility] Regional Medical CenterComment on above:Performed By: #### CEA #### [address] [address] [employer]: Daniel Malone MD #### CP, CDP #### [address] [place], [place] [address] [employer] Officer: Rosalee Donaldline Mzje441 U/NDwjy62-235VvkynCommunity Regional Medical CenterComment on above:Performed By: #### CEA #### [address] [address] [employer]: Daniel Malone MD #### CP, CDP #### [address] [place] [address] [employer]: Kelsie Pedro MDALT [Catalytic activity/Vol]21 U/JZbnyfe31-17MllpcCommunity Regional Medical CenterComment on above:Performed By: #### CEA #### [address] [address] [employer]: Daniel Malone MD #### CP, CDP #### [address] [place] [address] [employer]: Kelsie Pedro MDAnion gap [Moles/Vol]11 mmol/LNormal9-16[facility] HospitalComment on above:Performed By: #### CEA #### [address] [address] [employer]: Daniel Malone MD #### CP, CDP #### [address] [place] [address] [employer]: Kelsie Pedro MDAST [Catalytic activity/Vol]27 U/XBrhwvt25-37Lrgyr Tiffin HospitalComment on above:Performed By: #### CEA #### [address] [address] [employer]: Daniel Malone MD #### CP, CDP #### [address] [place] [address] [employer]: Kelsie Pedro MDBilirubin [Mass/Vol]0.7 mg/dLNormal0.00-1.20[facility] Medical CenterComment on above:Performed By: #### CEA #### [address] [address] [employer]: Daniel Malone MD #### CP, CDP #### [address] [place], [place] 2733483 [employer] Officer: Kelsie Pedro MDBUN/CRE Hmazy86Fdtasl4-95Pxgsd [facility] Comment on above:Performed By: #### CEA #### [facility] [address] [place] [address] [employer]: Daniel Malone MD #### CP, CDP #### [address] [place], [place] [address] [employer] Officer: ANAHY Donaldalcium [Mass/Vol]9.1 mg/dLNormal8.6-10.4[facility] Medical CenterComment on above:Performed By: #### CEA #### [address] [place] [address] [employer]: Daniel Malone MD #### CP, CDP #### [address] [place], [place] [address] [employer] Officer: ANAHY Donaldhloride [Moles/Vol]106 mmol/AHzvkqx71-989Gezvn [facility]iffin HospitalComment on above:Performed By: #### CEA #### [facility] [address] [place] [address] [employer]: Daniel Malone MD #### CP, CDP #### [address] [place], [place] [address] [employer]: ANAHY DonaldO2 [Moles/Vol]25 mmol/JHgjcdg76-93RfmowCommunity Regional Medical CenterComment on above:Performed By: #### CEA #### [facility] [address] [place] [address] [employer]: Daniel Malone MD #### CP, CDP #### [address] [place], [place] [address] [employer] Officer: ANAHY Donaldreatinine [Mass/Vol]1.1 mg/dLHigh0.50-0.90[facility] Medical CenterComment on above:Performed By: #### CEA #### [address] [address] [employer]: Daniel Malone MD #### CP, CDP #### [address] [place], [place] [address] [employer] Officer: Kelsie Pedro MDGFR/1.73 sq M.predicted among non-blacks MDRD (S/P/Bld) [Vol rate/Area]54 mL/min/{1.73_m2}Low>60MerStamford HospitalComment on above:Result Comment: These results are not intended for use in patients <18 years of age. eGFR results are calculated without a race factor using the 2020 CKD-EPI equation. Careful clinical correlation is recommended, particularly when comparing to results calculated using previous equations. The CKD-EPI equation is less accurate in patients with extremes of muscle mass, extra-renal metabolism of creatine, excessive creatine ingestion, or following therapy that affects renal tubular secretion.Performed By: #### CEA #### [address] [address] [employer]: Daniel Malone MD #### CP, CDP #### [address] [place] [address] [employer]: Kelsie Pedro MDGlucose [Mass/Vol]132 mg/pUXrjo06-96UwsneChildren's Hospital of ColumbusComment on above:Performed By: #### CEA #### [address] [address] [employer]: Daniel Malone MD #### CP, CDP #### [address] [place] [address] [employer] Officer: JOCELYNN Donaldotassium [Moles/Vol]3.9 mmol/LNormal3.7-5.3MChildren's Hospital of ColumbusComment on above:Performed By: #### CEA #### [address] [address] [employer]: Daniel Malone MD #### CP, CDP #### [address] [place], [place] [address] [employer] Officer: JOCELYNN Donaldrotein [Mass/Vol]6.8 g/dLNormal6.6-8.7[facility] Regional Medical CenterComment on above:Performed By: #### CEA #### [address] [address] [employer]: Daniel Malone MD #### CP, CDP #### [address] [place], [place] [address] [employer] Officer: BRIANNA Donaldodium [Moles/Vol]142 mmol/POibirk442-081IagqaCommunity Regional Medical CenterComment on above:Performed By: #### CEA #### [address] [address] [employer]: Daniel Malone MD #### CP, CDP #### [address] [place], [place] [address] [employer] Officer: Kelsie Pedro MDUrea nitrogen [Mass/Vol]16 mg/dLNormal8-23[facility] Regional Medical CenterComment on above:Performed By: #### CEA #### [address] [address] [employer]: Daniel Malone MD #### CP, CDP #### [address] [place], [place] [address]83 [employer] Officer: ANAHY Donaldomprehensive Metabolic Panelon [id number] [Mass/Vol]3.8 g/dL3.5 - 5.2 g/dLBon [facility] Flower HospitalAlbumin/Globulin [Mass ratio]1.3 {ratio}1.0 - 2.5Bon [facility] HospitalALP [Catalytic activity/Vol] 115 U/LHigh35 - 104 U/LBon [facility] HospitalALT [Catalytic activity/Vol]21 U/L10 - 35 U/LBon SecBucyrus Community HospitalAnion gap [Moles/Vol]11 mmol/L9 - 16 mmol/LBon SecWest [facility] HealthAST [Catalytic activity/Vol]27 U/L10 - 35 U/LBon SecBucyrus Community HospitalBilirubin [Mass/Vol]0.7 mg/dL0.00 - 1.20 mg/dLBon [facility] HospitalCalcium [Mass/Vol]9.1 mg/dL8.6 - 10.4 mg/dLBon [facility] Chloride [Moles/Vol]106 mmol/L98 - 107 mmol/LBon SecBucyrus Community HospitalCO2 [Moles/Vol]25 mmol/L20 - 31 mmol/LBon [facility] HospitalCreatinine [Mass/Vol] 1.1 mg/dLHigh0.50 - 0.90 mg/dLBon [facility] HospitalEst, Glom Filt Fddd94Bzu- PINFBon Prom[facility]ica Flower HospitalComment on above: These results are not intended for use in patients <18 years of age. eGFR results are calculated without a race factor using the 2020 CKD-EPI equation. Careful clinical correlation is recommended, particularly when comparing to results calculated using previous equations. The CKD-EPI equation is less accurate in patients with extremes of muscle mass, extra-renal metabolism of creatine, excessive creatine ingestion, or following therapy that affects renal tubular secretion. Glucose [Mass/Vol]132 mg/qJVkzj10 - 99 mg/dLBon [facility] Interpretation and review of laboratory resultsAbnormalBon [facility] Potassium [Moles/Vol]3.9 mmol/L3.7 - 5.3 mmol/LBon [facility] HospitalProtein [Mass/Vol]6.8 g/dL6.6 - 8.7 g/dLBon [facility] HospitalSodium [Moles/Vol]142 mmol/L136 - 145 mmol/LBon [facility] HospitalUrea nitrogen [Mass/Vol]16 mg/dL8 - 23 mg/dLBon [facility] HospitalUrea nitrogen/Creatinine [Mass ratio]15 mg/mg9 - 20Bon [facility] HospitalBon [facility] HospitalAmbulatory Visit Summaryon [id number] Visit SummaryAmbulatory Visit Summary JACKY GONZALEZ :1955 Visit Date:07/10/2024 Ambulatory Visit Instructions Your Diagnosis Atrial fibrillation Hypertension Hyperlipemia, mixed KEREN (obstructive sleep apnea) Adenocarcinoma of sigmoid colon Generalized anxiety disorder Major depressive disorder, single episode, mild Class 2 obesity due to excess calories in adult BMI 35.0-35.9,adult Your Care Team Attending Physician - GLADYS Conde Tammy L. Primary Care Physician - GLADYS Conde Tammy L. This Is Your Medications List lorazepam (Ativan 0.5 mg Tab) Contact prescribing physician if questions or concerns apixaban (Eliquis 5 mg oral tablet) aspirin (aspirin 81 mg Oral EC Tab) atorvastatin (atorvastatin 20 mg Tab) betamethasone topical (betamethasone dipropionate topical 0.05% ointment) escitalopram (escitalopram 10 mg Tab) flecainide (flecainide 50 mg Tab) lisinopril (lisinopril 5 mg Tab) meclizine (meclizine 12.5 mg Tab) metoprolol (metoprolol succinate 25 mg ER Tab) Procedures Performed Colonoscopy (01/15/2020), Colectomy (11/28/2018), Cryo cervix 1989's, L retinal detachment [facility] 2013. Discharge Vitals Temperature (Temporal Artery) 36.7 ???C Heart Rate (Peripheral) 88 Respiratory Rate 16 Blood Pressure 136/84 Height 167.6 cm Height 66 in Weight 100.8 kg Weight 222.226 lb BMI 35.88 What to do next Scheduled Follow-Up Appointments Tuesday 11:00 AM EDT With: GLADYS Conde Tammy L. Where: [facility] [address] [place] [address]- Tuesday 9:30 AM EDT With: Where: [facility] [address] [place] [address]- You Need to Schedule the Following Appointments Follow Up with GLADYS Conde Tammy L. When: In 4 months Comments: chronic care Where: [address] [place] [phone] Medications What How Much When Why Instructions Unchanged lorazepam (Ativan 0.5 mg Tab) 1 Tablets By Mouth 3 times a day as needed for anxiety Anxiety, generalized duration 30 days Pickup at [facility]/pharmacy #[id number] Unchanged apixaban (Eliquis 5 mg oral tablet) 180 EA, 0 Refill(s), TAKE 1 TABLET BY MOUTH TWICE A DAY Contact prescribing physician if questions or concerns Unchanged aspirin (aspirin 81 mg Oral EC Tab) 1 Tablets By Mouth Every day Contact prescribing physician if questions or concerns Unchanged atorvastatin (atorvastatin 20 mg Tab) 1 Tablets By Mouth Every day Contact prescribing physician if questions or concerns Unchanged betamethasone topical (betamethasone dipropionate topical 0.05% ointment) 1 Application Topical 2 times a day Contact prescribing physician if questions or concerns Unchanged escitalopram (escitalopram 10 mg Tab) See instructions TAKE 1.5 TABLETS BY MOUTH DAILY Contact prescribing physician if questions or concerns Unchanged flecainide (flecainide 50 mg Tab) 60 EA, 0 Refill(s), TAKE 1 TABLET BY MOUTH TWICE A DAY Contact prescribing physician if questions or concerns Unchanged lisinopril (lisinopril 5 mg Tab) 1 Tablets By Mouth Every day Duration: 90 Days Contact prescribing physician if questions or concerns Unchanged meclizine (meclizine 12.5 mg Tab) 1 Tablets By Mouth 3 times a day as needed for for dizziness Contact prescribing physician if questions or concerns Unchanged metoprolol (metoprolol succinate 25 mg ER Tab) 1 Tablets By Mouth Every day Contact prescribing physician if questions or concerns Pharmacy Information [facility]/pharmacy #[id number]: [address], [place] [id number] [phone] Allergies No Known Allergies No Known Medication Allergies Problems Ongoing - Any problem that you are currently receiving treatment for. 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 Atrial fibrillation Cerebrovascular small vessel disease Class 2 obesity due to excess calories in adult Cystitis with hematuria Dense breast tissue on mammogram Dizziness Eczema of external ear Edema of optic disc of right eye Generalized anxiety disorder Hyperlipemia, mixed Hypertension IBS (irritable bowel syndrome) Left lumbar radiculopathy Left retinal detachment Low vitamin D level Major depressive disorder, single episode, mild KEREN (obstructive sleep apnea) Osteopenia of multiple sites Sensory neuropathy Supraventricular tachycardia Historical - Any problem that you are no longer receiving treatment for. Chronic uveitis Herpes zoster Primary ovarian failure Splenic vein thrombosis Patient Survey You may receive a survey via text or e-mail asking about your office visit. Please share your experience with us by completing your survey. We appreciate your feedback and thank you for choosing us for your care. Education Materials Managing Anxiety, Adult A (more content not included)...[facility] Medicine Office/Clinic Noteon [id number] Medicine Office/Clinic NoteMiravista Behavioral [facility] Center Medicine Office/Clinic Note Chief Complaint The patient presents for a routine follow-up and medication management. HPI Staff Patient is here for follow up on hypertension. How often are you checking your blood pressure? Not checking What are your average readings? Are you compliant with your diet? no Do you exercise? no Are you compliant with your medications? yes Are you having difficulty affording your medications? no Do you have side effects from the medication? no Do you have any of the following symptoms? Chest Pain? no Palpitations? no FERRARA/SOB? no Headache? no Peripheral Edema? no Light Headedness? no Follow up for Mental Health: Anxiety/Depression Time of diagnosis: Years Psychology or FM managed: Family Medicine Counseling: No Depression: Yes Anxiety: Yes Sleeping pattern: 8 Mood swings: no Generally feeling happy: yes Medication adherence: yes takes medication as prescribed Side effects: None Suicidal Thoughts: None History of Present Illness 69 Years old Female here for 4 month chronic care HPI staff / Chief Complaint confirmed with the patient Screening: Colon Cancer screenin11/2018 found to have cancer, repeat scope 01/15/2020 with a 3 year f/u recommended; this patient does NOT have family history of colon cancer Breast cancer screenin03/04/2022 ; this patient does NOT have a family history of breast cancer Pap smear: NA DEXA: 03/11/2023 Labs: 03/05/2024 Tevin Guardado medication agreement: List of Providers: Oncologist: [employer] Associate: Tevin Future Appointments [facility] STAR Jacob Appvioleta. Date: 01/14/2025 9:30 AM Scheduled Provider: STAR Jacob Medicare Wellness Phone: -- Fax: -- The patient is presenting for a general follow-up on chronic medical conditions and medication management. Her medical history includes adenocarcinoma of the sigmoid colon with regular oncology follow-ups. She developed atrial fibrillation [id number] infection, which was evaluated with a sleep study revealing obstructive sleep apnea, but she does not use CPAP due to discomfort. Her BMI categorizes her as having class 2 obesity due to excess caloric intake, along with mixed hyperlipidemia andessential hypertension, monitored through regular check-ups. She manages mild major depressive disorder and generalized anxiety disorder with daily Lexapro and prn lorazepam, though the latter is rarely used. Her prior episode of hematuria resolved after treatment, with urinalysis initially indicating a potential uncomplicated UTI, though cultures were negative. She does not exhibit any current symptoms. Review of Systems PHQ Score Initial Depression Screen Score: 0 SCORE - Cardiovascular: Denies swelling in the legs. - Respiratory: Denies CPAP use due to discomfort, denies excessive daytime sleepiness. - Genitourinary: Denies current hematuria. - Neurological: Denies feeling overly tired. - Psychological: Reports use of Lexapro and infrequent use of lorazepam for anxiety. Physical Exam Vitals & Measurements T: 36.7 ???C(Temporal Artery) HR: 88(Peripheral) RR: 16 BP: 136/84 SpO2: 98% HT: 167.6 cm HT: 66 in WT: 222.226 lb WT: 100.8 kg BMI: 35.88 Constitutional: Well-groomed, well-nourished, no signs of acute distress. HEENT: Head normocephalic, sclera is clear. Cardiothoracic: Heart rate and rhythm is regular strong, normal S1 and S2. No murmurs, rubs, or bruits auscultated. No peripheral edema, peripheral pulses +2 Respiratory: Lung sounds are clear throughout, respirations regular nonlabored. Abdomen/GI: Abdomen soft nondistended. Musculoskeletal: Gait is steady, full range of motion. Integument: No rashes or lesions noted to the exposed skin. Psychiatric: Alert and oriented x 3, pleasant, no mood changes. Assessment/Plan 1. Atrial fibrillation (I48.91: Unspecified atrial fibrillation) The patient's management will continue with regular monitoring of cardiac status; CPAP possibilities were discussed should her symptoms warrant it. 2. Hypertension (I10: Essential (primary) hypertension) The importance of the following were all reviewed with the patient: -Take medications as prescribed. There are simple Lifestyle Modifications that you can do to reduce your blood pressure. -Weight Reduction -Follow the DASH eating plan. -Reduce Sodium (Salt) Intake to 2000mg per day. -Use Moderation when consuming alcohol. - To improve your health we recommend increasing your level of moderate exercise to at least 2.5 hrs per week. Ongoing monitoring of blood pressure and encouragement for lifestyle management. 3. Hyperlipemia, mixed (E78.2: Mixed hyperlipidemia) The importance of the following were all reviewed with the patient: -Take medications as prescribed. - Recommended following the TLC Lipid Diet which is a low fat/low cholesterol diet for high cholesterol. - More information about this eating plan can be found here: http://tlcdiet.org - To imp (more content not included)...[facility] EastComment on above:Result Comment: Electronically Signed By: Viral PARKER, GENERAL PURCHASING AGENT-ALBINO, Stacia Mcmahan\.br\Date and Time Signed: 07/10/24 12:25 EDTPre-Visit Planningon 07-09-2024 Pre-Visit PlanningPre-Visit Planning From: Kortney Venegas To: Wendy Fox; Sent: 07/09/2024 08:26:52 EDT Subject: Pre-Visit Planning Due Date/Time: 07/09/2024 08:26:00 EDT Caller Name: JACKY GONZALEZ; Caller Number: H [phone], M Adarsh Nguyen. During a pre-visit planning chart review, I noted the following documentation in the medical recordindicates this patient has been diagnosed as having: Acute cerebrovascular accident (CVA) Based on your medical judgment, can you please further validate the above diagnosis? I can update the Chronic Problem List with your response if you would like. -History of CVA -The above diagnosis is not supported by clinical indicators and is resolved. -The above diagnosis is supported by the following clinical indicators: -Other (please specify): In responding to this request, please exercise your independent professional judgment. The fact that a question is asked does not imply that any particular answer is desired or expected. If you have any questions, please feel free to contact me at extension [phone]. Thank you! Kortney Venegas LPN Clinical Customer Service Advocate [address] [address] Extension: [phone] [email or web address] CincinnatiPre- Visit Planningon [id number]-Visit PlanningPre-Visit Planning From: Kortney Venegas To: Viral MSN, GENERAL PURCHASING AGENT-RACQUET MAKER, Stacia Mcmaahn; Sent: 07/08/2024 11:02:44 EDT Subject: Pre-Visit Planning Due Date/Time: 07/08/2024 11:02:00 EDT Caller Name: ALLISON JACKY J; Caller Number: H [phone], M Adarsh Palomo. During a pre-visit planning chart review, I noted the following documentation in the medical record: Current Problem List: ADINA. Current Medication List: escitalopram and lorazepam. 05/25/2023 Office Visit Note: Generalized anxiety disorder, (F41.1: Generalized anxiety disorder)Anxiety, generalized She has had situational causing anxiety from the of her mother to holidays,to her own cancer, and overthinking. She is already on Lexapro and Ativan. We will go ahead and refill her Ativan at this time. Did discuss counseling, and she is going to look into that to see who her insurance will cover. ADINA score was an 8 with a PHQ score of 10. We will increase her Lexapro to 1.5 tablets and have her follow up with me in 4 to 6 weeks for reevaluation. She knows how to notifythe office if anything should change. 06/29/2023 Office Visit Note: Generalized anxiety disorder (F41.1: Generalized anxiety disorder) Weincreased her Lexapro to 1.5 tablets last month. Overall, she is doing much better. Her PHQ-9 scoreis now 0. Her ADINA score is 5, down from 8. She is still able to show emotions. She still has Ativanon board in case she needs it, but at this time we will just leave it as is. We did discuss and colin nd her not to stop the medication abruptly, she did question if she needs to be on the medicine forthe rest of her life, was educated that once she gets to her baseline it is usually recommended shestay on the medication additionally for 6 to 12 months then we can revisit and that is when we can wean the medication off. Verbalizes understanding and that is something we can revisit at a later date. Again remind her to notify the office if symptoms worsen. Based on your medical judgment, can you please clarify which, if any, of the following conditions are present? I can update the Chronic Problem List with your response if you would like. Major Depressive Disorder, Single Episode ??? Major depressive disorder, single episode, mild ??? Major depressive disorder, single episode, moderate ??? Major depressive disorder, single episode, severe without mention of psychotic behavior ??? Major depressive disorder, single episode, in partial remission ??? Major depressive disorder, single episode in full remission Major Depressive Disorder, Recurrent ??? Major depressive disorder, recurrent, mild ??? Major depressive disorder, recurrent, moderate ??? Major depressive disorder, recurrent, severe without mention of psychotic behavior ??? Major depressive disorder, recurrent, in partial remission ??? Major depressive disorder, recurrent, in full remission -ADINA only- No Change -Other (Please Specify): In responding to this request, please exercise your independent professional judgement. The fact that a question is asked does not imply that any particular answer is desired or expected. If you have any questions, please feel free to contact me at extension [phone]. Thank you! Kortney Venegas LPN Clinical Customer Service Advocate [place] [address] Extension: [phone] [email or web address] From: Viral PARKER, GENERAL PURCHASING AGENT-RACQUET MAKER, Stacia Mcmahan To: Kortney Venegas; Sent: 07/08/2024 13:36:13 EDT Subject: RE: Pre-Visit Planning Caller Name: JACKY GONZALEZ; Caller Number: [phone], Major depressive disorder, single episode, mild thank you :)[facility] Urineon [id number] identified Cx Nom (U)Microbiology PROCEDURE: Urine Culture [R1] SOURCE: U Random BODY SITE: COLLECTED DATE/TIME: 06/11/2024 11:55 EST RECEIVED DATE/TIME: 06/11/2024 23:23 EST START DATE/TIME: 06/11/2024 23:23 EST FREE TEXT SOURCE: Viral PARKER, GLADYS, Viral PARKER, GLADYS, Stacia Mcmahan FINAL REPORTS Final Report [] Verified Date/Time: 06/13/2024 09:21 EST 1,000 cfu/ml Mixed skin contaminants Performing Locations R1: This test was performed at: [facility], [address] [place] [address], [facility] , , LjayucUqbjkrRegency Hospital Cleveland EastComment on above:Performed By: #### [id number] #### [facility] [address] [place] [id number] Visit Summaryon [id number] Visit Summary Ambulatory Visit Summary JACKY GONZALEZ :1955 Visit Date:06/11/2024 Ambulatory Visit Instructions Your Diagnosis Cystitis with hematuria Class 2 obesity due to excess calories in adult, Other obesity due to excess calories BMI 36.0-36.9,adult Your Care Team Attending Physician - Viral PARKER, Stacia GRAHAM Primary Care Physician - Viral PARKER, Stacia GRAHAM This Is Your Medications List sulfamethoxazole-trimethoprim (Bactrim D.S. 800 mg-160 mg Tab) Contact prescribing physician if questions or concerns apixaban (Eliquis 5 mg oral tablet) aspirin (aspirin 81 mg Oral EC Tab) atorvastatin (atorvastatin 20 mg Tab) betamethasone topical (betamethasone dipropionate topical 0.05% ointment) escitalopram (escitalopram 10 mg Tab) flecainide (flecainide 50 mg Tab) lisinopril (lisinopril 5 mg Tab) lorazepam (Ativan 0.5 mg Tab) meclizine (meclizine 12.5 mg Tab) metoprolol (metoprolol succinate 25 mg ER Tab) Procedures Performed Colonoscopy (01/15/2020), Colectomy (11/28/2018), Cryo cervix 1990's, L retinal detachment [facility] 2013. Discharge Vitals Temperature (Temporal Artery) 36.4 ???C Heart Rate (Peripheral) 86 Respiratory Rate 18 Blood Pressure 152/94 Height 167.6 cm Height 66 in Weight 101.8 kg Weight 224.43 lb BMI 36.24 What to do next Scheduled Follow-Up Appointments Tuesday 11:00 AM EDT With: Viral MSN, GENERAL PURCHASING AGENT-RACQUET MAKER, Stacia Mcmahan Where: [facility] [address] [place] [address]- Tuesday 9:30 AM EDT With: Where: [facility] [address] [place] [address]- Medications What How Much When Why Instructions New sulfamethoxazole-trimethoprim (Bactrim D.S. 800 mg-160 mg Tab) 1 Tablets By Mouth Every 12 hours Duration: 5 Days Pickup at [facility]/pharmacy #[id number] Unchanged apixaban (Eliquis 5 mg oral tablet) 180 EA, 0 Refill(s), TAKE 1 TABLET BY MOUTH TWICE A DAY Contact prescribing physician if questions or concerns Unchanged aspirin (aspirin 81 mg Oral EC Tab) 1 Tablets By Mouth Every day Contact prescribing physician if questions or concerns Unchanged atorvastatin (atorvastatin 20 mg Tab) 1 Tablets By Mouth Every day Contact prescribing physician if questions or concerns Unchanged betamethasone topical (betamethasone dipropionate topical 0.05% ointment) 1 Application Topical 2 times a day Contact prescribing physician if questions or concerns Unchanged escitalopram (escitalopram 10 mg Tab) See instructions TAKE 1.5 TABLETS BY MOUTH DAILY Contact prescribing physician if questions or concerns Unchanged flecainide (flecainide 50 mg Tab) 60 EA, 0 Refill(s), TAKE 1 TABLET BY MOUTH TWICE A DAY Contact prescribing physician if questions or concerns Unchanged lisinopril (lisinopril 5 mg Tab) 1 Tablets By Mouth Every day Duration: 90 Days Contact prescribing physician if questions or concerns Unchanged lorazepam (Ativan 0.5 mg Tab) 1 Tablets By Mouth 3 times a day as needed for anxiety Anxiety, generalized duration 30 days Contact prescribing physician if questions or concerns Unchanged meclizine (meclizine 12.5 mg Tab) 1 Tablets By Mouth 3 times a day as needed for for dizziness Contact prescribing physician if questions or concerns Unchanged metoprolol (metoprolol succinate 25 mg ER Tab) 1 Tablets By Mouth Every day Contact prescribing physician if questions or concerns Pharmacy Information [facility]/pharmacy #[id number]: [address], [place] [id number] [phone] Allergies No Known Allergies No Known Medication Allergies Problems Ongoing - Any problem that you are currently receiving treatment for. 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 Chronic uveitis Herpes zoster Primary ovarian failure Splenic vein thrombosis Patient Survey You may receive a survey via text or e-mail asking about your office visit. Please share your experience with us by completing your survey. We appreciate your feedback and thank you for choosing us for your care. [facility] Medicine Office/Clinic Noteon [id number] Medicine Office/Clinic NoteFaboston university medical center hospital Medicine Office/Clinic Note Chief Complaint Hematuria and obesity management. HPI Staff C/o UTI symptoms Onset: 2 days Frequency: Denies Urgency: Denies Small volume void: Denies Dysuria: Yes blood in urine Pressure: Denies Back pain: Denies Nocturia: Denies Fever/chills: Denies Nausea/vomiting: Denies Taking Azo? Denies UTI or other reason for antibiotics last 30 days: Denies History of Present Illness The patient is a 69-year-old female presenting with hematuria. She reports noticing reddened urine since yesterday with no associated significant pain or burning during urination. A vague sense of discomfort and a sensation of cold stuff was reported, albeit without typical dysuria. She expressed significant concern due to self-research indicating potential severe conditions such as bladder cancer, though she denied feeling systemically unwell. The patientwas identified to have a 'large amount' of blood in her urine based on dipstick testing, alongside some glucose presence. The patient previously had blood work done in 2021, with results reportedly not being forwarded to the current facility. During the visit, she acknowledged lifestyle factors such as low water intake, which contribute to her current health condition. The patient's medication history was reviewed, revealing ongoing bloodthinner therapy with Eliquis. She reported that her family has a history of diabetes, and she notedconcern regarding the relation of her symptoms to kidney function. However, she denied any past yeast infections and generally has not experienced complications from antibiotic usage. Review of Systems PHQ Score Initial Depression Screen Score: 1 SCORE - Genitourinary: Reports urine discolouration to red, discomfort without significant burning duringurination. - Gastrointestinal: Denies constipation associated with low water intake. - Musculoskeletal: Denies back pain. - Endocrine: Denies recent blood sugar elevation, family history of diabetes noted. Physical Exam Vitals & Measurements T: 36.4 ???C(Temporal Artery) HR: 86(Peripheral) RR: 18 BP: 152/94 SpO2: 98% HT: 66 in HT: 167.6 cm WT: 101.8 kg WT: 224.43 lb BMI: 36.24 Constitutional: Well-groomed, well-nourished, no signs of acute distress. HEENT: Head normocephalic, sclera is clear. Cardiothoracic: Heart rate and rhythm is regular strong, normal S1 and S2. No murmurs, rubs, or bruits auscultated. No peripheral edema, peripheral pulses +2 Respiratory: Lung sounds are clear throughout, respirations regular nonlabored. Abdomen/GI: Abdomen soft nondistended, no CVA tenderness : Gross hematuria Musculoskeletal: Gait is steady, full range of motion. Integument: No rashes or lesions noted to the exposed skin. Psychiatric: Alert and oriented x 3, pleasant, no mood changes. Assessment/Plan 1. Cystitis with hematuria (N30.91: Cystitis, unspecified with hematuria) Suspected UTI managed with Bactrim, a broad-spectrum antibiotic, administered due to positive dipstick for significant hematuria and urine sediment abnormalities. A urinalysis with culture is mandated for precise identification of the causative organism and sensitivity assessment. Lifestyle and dietary guidance focusing on increased water intake and appropriate hygiene practices were provided to prevent recurrent episodes. Ordered: UA with Cult Rflx Urnls Dip Stick Auto w/o Microscopy POC 43507 2. Class 2 obesity due to excess calories in adult, (E66.09: Other obesity due to excess calories)Other obesity due to excess calories Calorie restriction along with routine aerobic exercises discussed in order to avoid hypertension, osteoarthritis, metabolic syndrome and/or worsening of chronic underlying disease states. Encouragedto limit sugary drinks, foods high in sodium, as well as alcohol. Ordered: UA with Cult Rflx 3. BMI 36.0-36.9,adult (Z68.36: Body mass index [BMI] 36.0-36.9, adult) See #2 Ordered: UA with Cult Rflx Orders: sulfamethoxazole-trimethoprim, 1 tab(s), Oral, q12hr for 5 day(s), 10 tab(s), Refill(s) 0, [facility]/pharmacy #[id number], 167.6, cm, 06/11/24 11:26:00 EST, Height/Length Dosing, 101.8, kg, 06/11/24 11:26:00 EST, Weight Dosing This note was created by the assist of a speech-recognition program although the intention is to generate a document that actually reflects the content of the visit, no guarantees can be provided that every mistake has been identified and corrected by editing. 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 Class 2 obesity due to excess calories in adult Cystitis with hematuria Dense breast tissue on mammogram (more content not included)...NormalCoshocton Regional Medical CenterComment on above: Result Comment: Electronically Signed By: Viral PARKER, BRUNO-Stacia POSADA\.br\Date and Time Signed: 06/11/24 13:01 ESTUA with Cult Rflxon 06-11-2024 Bacteria Auto Ql (U)TraceNormalTraceCoshocton Regional Medical CenterComment on above: Performed By: #### [id number] #### [facility] [address], [place] [address]Lnrsiaula Ql (U)NegativeNormalNegativeCoshocton Regional Medical CenterComment on above:Performed By: #### [id number] #### [facility] [address], [place] [address]Qjagjbn (U)TurbidAbnormalClearFisher [facility] Comment on above:Performed By: #### [id number] #### [facility] [address], [place] [address]Vuqhm (U)BrownAbnormalYellowCoshocton Regional Medical CenterComment on above:Result Comment: Microscopic readings are only performed on those samples that meet specific criteria set forth by [facility].Performed By: #### [id number] #### [facility] [address], [place] [address]Flsgvdu Ql (U)1+ mg/dLAbnormalNegGood Samaritan HospitalComment on above:Performed By: #### [id number] #### [facility] [address], [place] [address]Guktozeaoc Auto test strip (U) [Mass/Vol]3+ mg/dLAbnormal [facility] SystemComment on above:Performed By: #### [id number] #### [facility] [address], [place] [address]Ylsqxci Auto test strip Ql (U)NegativeNormalNegativeCoshocton Regional Medical CenterComment on above:Performed By: #### [id number] #### [facility] [address], [place] [address]Qnmmjaioh esterase Auto test strip Ql (U)75 Lorene/uLAbnormal NegativeCoshocton Regional Medical CenterComment on above:Performed By: #### [id number] #### [facility] [address], [place] [address]Ceprh Auto Ql (U)NegativeNormalNegativeCoshocton Regional Medical CenterComment on above:Performed By: #### [id number] #### Luan [facility] [address], [place] [address]Dtvwqkz Auto test strip Ql (U)NegativeNormalNegGood Samaritan HospitalComment on above:Performed By: #### [id number] #### Roland [facility] [address] [place] [address]fO (U)5.5 [pH]Invalid Interpretation Code5.0-9.0[facility] Regional Medical CenterComment on above:Performed By: #### [id number] #### Roland [facility] [address] [place] [address]Mymrwfj Ql (U)1+ mg/dLAbnormalNegGood Samaritan HospitalComment on above:Performed By: #### [id number] #### Roland [facility] [address] [place] [address]YWR Ql (U)>34Mankcvya3-2NequxzKeenan Private HospitalComment on above:Performed By: #### [id number] #### Roland [facility] [address] [place] [address]Mpeqotgn gravity (U) [Rel density]1.014Invalid Interpretation Code1.005-1.030[facility] Medical CenterComment on above:Performed By: #### [id number] #### Roland [facility] [address] [place] [address]Pixclcfjhpac (U) [Mass/Vol]NegativeNormalNegativeCoshocton Regional Medical CenterComment on above:Performed By: #### [id number] #### Roland [facility] [address] [place] [address]NLJ Auto (Urine sed) [#/Area]54-86Bdopvgwb8-2MjcbokKeenan Private HospitalComment on above:Performed By: #### [id number] #### Roland [facility] [address] [place] [address]Oahm of Urine collection methodClean CatchNoFisher-Titus Medical CenterComment on above:Performed By: #### [id number] #### [facility] [address], [place] [address]GXSZRYCBODNgnbuwd By: SYSTEM SYSTEM on 18-93-8855Kbmpogey Auto Ql (U)Trace /HPFNormalTrace/HPFFTMC UA Auto SSBilirubin Ql (U)NegativeNormal Negativemg/dLFTMC UA Auto SSClarity (U)Turbid *ABN* (06/11/24 11:55 AM)Invalid Interpretation CodeClearFTMC UA Auto SSColor (U)Brown 1 *ABN* (06/11/24 11:55 AM)Invalid Interpretation CodeYellowFTMC UA Auto SSComment on above:Interpretive Data: Microscopic readings are only performed on those samples that meet specific criteria set forth by [facility].Glucose Ql (U)1+ mg/dLInvalid Interpretation CodeNegativemg/dLFTMC UA Auto SSHemoglobin Auto test strip (U) [Mass/Vol]3+ mg/dLInvalid Interpretation CodeNegativemg/dLFTMC UA Auto SSKetones Auto test strip Ql (U)NegativeNormal Negativemg/dLFTMC UA Auto SSLeukocyte esterase Auto test strip Ql (U)75 Lorene/uL Lorene/uLInvalid Interpretation CodeNegativeLeu/uLFTMC UA Auto SSMucus Auto Ql (U) NegativeNormalNegativegraded/LPFFTMC UA Auto SSNitrite Auto test strip Ql (U) NegativeNormalNegativemg/dLFTMC UA Auto SSpH (U)5.5 *NA* (06/11/24 11:55 AM)Invalid Interpretation Code5.0 - 9.0FT UA Auto SSProtein Ql (U)1+ mg/dLInvalid Interpretation CodeNegativemg/dLFTMC UA Auto SSRBC Ql (U)>75 graded/HPFInvalid Interpretation Code0-3graded/HPFFTMC UA Auto SSSpecific gravity (U) [Rel density]1.014 *NA* (06/11/24 11:55 AM)Invalid Interpretation Code1.005 - 1.030[facility] UA Auto SS Urobilinogen (U) [Mass/Vol]NegativeNormalNegativemg/dLFTMC UA Auto SSWBC Auto (Urine sed) [#/Area]31-75 graded/HPFInvalid Interpretation Code0-5graded/HPFALLIANCEHEALTH [facility] [place] UA Auto SSURINALYSISOrdered By: Atiya Sheffield on [id number] Spec DescClean Catch (06/11/24 11:55 AM)NormalALLIANCEHEALTH MIDWEST – [facility] UA Auto SSAmbulatory Visit Summaryon 05-11-2024 Ambulatory Visit SummaryAmbulatory Visit Summary JACKY GONZALEZ :1955 Visit Date:05/11/2024 Ambulatory Visit Instructions Your Diagnosis OME (otitis media with effusion) Dizziness Class 2 obesity due to excess calories in adult, Other obesity due to excess calories BMI 35.0-35.9,adult Your Care Team Attending Physician - Viral MSN, GENERAL PURCHASING AGENT-RACQUET MAKER, Stacia Mcmahan Primary Care Physician - Viral PARKER, GENERAL PURCHASING AGENT-RACQUET MAKERStacia This Is Your Medications List meclizine (meclizine 12.5 mg Tab) Contact prescribing physician if questions or concerns apixaban (Eliquis 5 mg oral tablet) aspirin (aspirin 81 mg Oral EC Tab) atorvastatin (atorvastatin 20 mg Tab) betamethasone topical (betamethasone dipropionate topical 0.05% ointment) escitalopram (escitalopram 10 mg Tab) flecainide (flecainide 50 mg Tab) lisinopril (lisinopril 5 mg Tab) lorazepam (Ativan 0.5 mg Tab) metoprolol (metoprolol succinate 25 mg ER Tab) Procedures Performed Colonoscopy (01/15/2020), Colectomy (11/28/2018), Cryo cervix 1990's, L retinal detachment [facility] 2013. Discharge Vitals Temperature (Temporal Artery) 36.5 ???C Heart Rate (Peripheral) 76 Respiratory Rate 18 Blood Pressure 148/96 Height 167.6 cm Height 66 in Weight 99.4 kg Weight 219.139 lb BMI 35.39 What to do next Scheduled Follow-Up Appointments Tuesday 11:00 AM EDT With: Viral PARKER, GENERAL PURCHASING AGENT-RACQUET MAKERStacia Where: [address] [address]- Tuesday 9:30 AM EDT With: Where: [facility] [address] [place] [address]- Medications What How Much When Why Instructions New meclizine (meclizine 12.5 mg Tab) 1 Tablets By Mouth 3 times a day as needed for for dizziness Pickup at [facility]/pharmacy #[id number] Unchanged apixaban (Eliquis 5 mg oral tablet) 180 EA, 0 Refill(s), TAKE 1 TABLET BY MOUTH TWICE A DAY Contact prescribing physician if questions or concerns Unchanged aspirin (aspirin 81 mg Oral EC Tab) 1 Tablets By Mouth Every day Contact prescribing physician if questions or concerns Unchanged atorvastatin (atorvastatin 20 mg Tab) 1 Tablets By Mouth Every day Contact prescribing physician if questions or concerns Unchanged betamethasone topical (betamethasone dipropionate topical 0.05% ointment) 1 Application Topical 2 times a day Contact prescribing physician if questions or concerns Unchanged escitalopram (escitalopram 10 mg Tab) See instructions TAKE 1.5 TABLETS BY MOUTH DAILY Contact prescribing physician if questions or concerns Unchanged flecainide (flecainide 50 mg Tab) 60 EA, 0 Refill(s), TAKE 1 TABLET BY MOUTH TWICE A DAY Contact prescribing physician if questions or concerns Unchanged lisinopril (lisinopril 5 mg Tab) 1 Tablets By Mouth Every day Duration: 90 Days Contact prescribing physician if questions or concerns Unchanged lorazepam (Ativan 0.5 mg Tab) 1 Tablets By Mouth 3 times a day as needed for anxiety Anxiety, generalized duration 30 days Contact prescribing physician if questions or concerns Unchanged metoprolol (metoprolol succinate 25 mg ER Tab) 1 Tablets By Mouth Every day Contact prescribing physician if questions or concerns Pharmacy Information [facility]/pharmacy #[id number]: [address], [place] [phone] Allergies No Known Allergies No Known Medication Allergies Problems Ongoing - Any problem that you are currently receiving treatment for. 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 Chronic uveitis Herpes zoster Primary ovarian failure Splenic vein thrombosis Patient Survey You may receive a survey via text or e-mail asking about your office visit. Please share your experience with us by completing your survey. We appreciate your feedback and thank you for choosing us for your care. [facility] Medicine Office/Clinic Noteon [phone] Medicine Office/Clinic NoteMiravista Behavioral [facility] Medicine Office/Clinic Note Chief Complaint Dizziness and left ear problems HPI Staff C/O Ear Pain: Onset: left ear Fevers: Denies Sinus congestion: Denies sinus pressure Sneezing: Denies Ear pain: Denies Ear itching, popping, fullness, ringing, muffled hearing: Yes Ear drainage: Denies Swollen nodes: Denies Sore throat: Denies Ear pain worse with chewing: Denies Itching: Denies Difficulty hearing: Yes dizzy History of Present Illness The patient is a 69-year-old female presenting with dizziness and left ear- related symptoms. The dizziness began recently and is persistent throughout the day. The patient describes it as a spinning sensation that severely impacts her ability to focus. She reports that closing her eyes sometimes alleviates the spinning, but the dizziness persists. The patient also notes a history of tinnitus, which she describes as louder than usual now. She denies pain in the affected ear but experiences a muffled sensation, as if the ear is clogged. Associated symptoms include constant rhinorrhea that she reports as a usual occurrence, and headaches that accompany the dizziness. The patient denies any concurrent sinus issues, except for chronic nasal runniness, and she denies any previously diagnosed ear infections. She has not taken any allergy medications recently, such as axth-zkd-hrmsijl Zyrtec or Claritin. Review of Systems PHQ Score Initial Depression Screen Score: 1 SCORE - Neurological: Reports difficulty maintaining focus due to dizziness, reports increased severity of tinnitus. - Ear, Nose, Throat: Reports muffled sensation in the left ear, denies ear pain, reports chronic nasal runniness. Physical Exam Vitals & Measurements T: 36.5 ???C(Temporal Artery) HR: 76(Peripheral) RR: 18 BP: 148/96 SpO2: 98% HT: 66 in HT: 167.6 cm WT: 99.4 kg WT: 219.139 lb BMI: 35.39 Constitutional: Well-groomed, well-nourished, no signs of acute distress. HEENT: Head normocephalic, sclera is clear. Bilateral ear canals patent minimum cerumen, TMs visualized: Right without any erythema or bulging, left TM without any erythema mild bulging noticeable fluid. Nares patent minimum clear rhinorrhea, no palpable cervical lymph nodes. Cardiothoracic: Heart rate and rhythm is regular strong, normal S1 and S2. No murmurs auscultated. Respiratory: Lung sounds are clear throughout, respirations regular nonlabored. Abdomen/GI: Abdomen soft nondistended. Musculoskeletal: Gait is steady, full range of motion. Integument: No rashes or lesions noted to the exposed skin. Psychiatric: Alert and oriented x 3, pleasant, no mood changes. Assessment/Plan 1. OME (otitis media with effusion) (H65.90: Unspecified nonsuppurative otitis media, unspecified ear) Fluid in the middle ear is suspected as a cause of dizziness. Flonase nasal spray was recommended, to be used as two sprays in each nostril once daily to aid in draining fluid. The patient was informed of the expected time frame for symptomatic improvement. Monitoring of symptoms over the next couple of weeks was advised, with follow-up planned if necessary. No improvement or worsening of symptoms will let the office know right away. 2. Dizziness (R42: Dizziness and giddiness) It is likely related to fluid accumulation in the middle ear. A prescription for Meclizine was provided to help manage symptoms of dizziness. The patient is advised to maintain good hydration and monitor symptoms closely. Follow-up in case of symptom worsening or lack of improvement is recommended. 3. Class 2 obesity due to excess calories in adult, (E66.09: Other obesity due to excess calories)Other obesity due to excess calories Calorie restriction along with routine aerobic exercises discussed in order to avoid hypertension, osteoarthritis, metabolic syndrome and/or worsening of chronic underlying disease states. Encouragedto limit sugary drinks, foods high in sodium, as well as alcohol. 4. BMI 35.0-35.9,adult (Z68.35: Body mass index [BMI] 35.0-35.9, adult) see #3 Orders: meclizine, 12.5 mg = 1 tab(s), Oral, TID, PRN for dizziness, # 30 tab(s), Refills(s) 0, Pharmacy: [facility]/pharmacy #[id number], 167.6, cm, 05/11/24 14:28:00 EST, Height/Length Dosing, 99.4, kg, 05/11/24 14:28:00 EST, Weight Dosing This note was created by the assist of a speech-recognition program although the intention is to generate a document that actually reflects the content of the visit, no guarantees can be provided that every mistake has been identified and corrected by editing. 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 BMI 35.0-35.9,adult Cerebrovascular small vessel disease Class 2 obesity due to e (more content not included)...[facility] EastComment on above:Result Comment: Electronically Signed By: Viral PARKER, GENERAL PURCHASING AGENT-ALBINO, Stacia Mcmahan\.br\Date and Time Signed: 05/11/24 14:57 ESTCNPNon [id number] (OPHTMN) JACKY GONZALEZ ([id number]) 1955 F Date Time Provider Department 05/07/24 WAN BLOOM OPHPANTERA During your visit today, we recorded the following information about you: Wan Bloom MD 05/07/2024 10:32 AM Signed Please notify patient that her blood test was normal and no further testing is needed from my perspective. I can see her back in 1 year as we discussed, thanks. Rosalba Desouza 05/07/2024 11:08 AM Signed Message relayed via [facility] Allergies As of Date: 05/07/2024 (No Known Allergies) Date Reviewed: 05/03/2024 Reviewed by: Alan Irby OA - Fully Assessed Prescriptions as of 05/07/2024 - prednisoLONE acetate (PRED FORTE) 1 % ophthalmic suspension Use 1 Drop in the left eye two times a day. - flecainide (TAMBOCOR) 50 mg tablet Take 50 mg by mouth two times a day. - metoprolol succinate ER (TOPROL XL) 25 mg 24 hr tablet Take 1 tablet by mouth every afternoon. - ofloxacin (OCUFLOX) 0.3 % ophthalmic solution Use 1 Drop in the left eye four times daily. - prednisoLONE acetate (PRED FORTE) 1 % ophthalmic suspension Use 1 Drop in the left eye four times daily. - apixaban (ELIQUIS) 5 mg tab(s) Take 1 tablet by mouth two times a day. - lisinopril (ZESTRIL) 5 mg tablet Take 5 mg by mouth once daily. - betamethasone dipropionate 0.05 % ointment Apply to affected area. prn - aspirin, enteric coated (ASPIRIN, ENTERIC COATED) 81 mg EC tablet Take 81 mg by mouth. - atorvastatin (LIPITOR) 20 mg tablet Take 20 mg by mouth. - escitalopram oxalate (LEXAPRO) 10 mg tablet Take 10 mg by mouth once daily. - LORazepam (ATIVAN) 0.5 mg Take 1 tablet by mouth three times daily as needed. 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] 10/23/2015 High risk medication use [Z79.899] 01/05/2018 Elevated LFTs [R79.89] 01/05/2018 Retinal detachment, right [H33.21] 01/30/2018 History of colon cancer [Z85.038] 11/08/2019 Combined forms of age-related cataract of right*05/02/2020 07/06/2022 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] 12/17/2020 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, 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, stable, 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] 12/17/2020 Pseudophakia of both eyes [Z96.1] 12/17/2020 Optic disc edema of right eye [H47.10] 12/29/2021 Status post corneal transplant [Z94.7] 12/29/2021 Epiretinal membrane (ERM) of right eye [H35.371]12/29/2021 Pseudophakia, both eyes [Z96.1] 07/06/2022 History of detached retina repair [Z98.890, Z86*07/06/2022 Dyslipidemia [E78.5] 04/04/2023 Irritable bowel syndrome [K58.9] 10/26/2023 PAF (paroxysmal atrial fibrillation) (HCC) [I48*04/04/2023 Splenic vein thrombosis [I82.890] 07/25/2019 Cerebrovascular disease [I67.9] 02/11/2022 KEREN on CPAP [G47.33] 10/26/2023 Encounter Status:Closed by WAN BLOOM on 05/07/24NormalCRegency Hospital [facility] West/CONFOCAL MICROSCOPY OS (LEFT EYE)on [id number] Radiology Study observation (narrative)[facility] HospitalPROTEIN ELECTROPHORESIS SERUM (P)on [id number] [Mass/Vol]3.81 g/dLNormal3.43-5.41Providence HospitalComment on above:Order Comment: Specimen Type: BLOOD SPECIMENOrdering Facility: [facility] Address:[address] [place], [place] [address]Performed By: #### [id number] ####[facility] LABCLIA [id number] [place] [address] [place] Alpha 1 globulin Elph [Mass/Vol]0.34 g/dLNormal0.18-0.43Providence HospitalComment on above:Order Comment: Specimen Type: BLOOD SPECIMENOrdering Facility: [facility] Address:[address] [place], [place] [address]Performed By: #### [id number] ####[facility] LABIA [id number] [place] [address] [place] Alpha 2 globulin Elph [Mass/Vol]0.83 g/dLNormal0.42-0.98Providence HospitalComc.[facility] on above:Order Comment: Specimen Type: BLOOD SPECIMENOrdering Facility: [facility] Address:[address] [place], [place] [address]Performed By: #### [id number] ####[facility] LABIA [id number] [place] [address] [place] Beta globulin Elph [Mass/Vol]0.91 g/dLNormal0.61-1.17[facility] Comment on above:Order Comment: Specimen Type: BLOOD SPECIMENOrdering Facility: [facility] Address:[address] [place] [address] Performed By: #### [id number] ####[facility] LABIA [id number] [place] [address] [place] Gamma globulin Elph [Mass/Vol]0.81 g/dLNormal0.53-1.51[facility] Comment on above:Order Comment: Specimen Type: BLOOD SPECIMENOrdering Facility: [facility] Address:[address] [place] [address] Performed By: #### [id number] ####[facility] LABIA [id number] [place] [address] [place] M-PROTEIN LOCATIONNormalCTrinity Health System East CampusComc.[facility] on above:Order Comment: Specimen Type: BLOOD SPECIMENOrdering Facility: [facility] Address:[address] [place], [place] [address]Result Comment: Not Applicable.Performed By: #### [id number] ####[facility] LABCLIA [id number] [place] [address] [place] Protein Fractions [Interp]No definitive M protein is identified on protein electrophoresis.NormalNo definitive M protein is identified on protein electrophoresis.[facility] on above:Order Comment: Specimen Type: BLOOD SPECIMENOrdering Facility: [facility] Address:[address] [place], [place] [address]Performed By: #### [id number] ####[facility] LABCLIA [id number] [place] [address] [place] AMERICAProtein.monoclonal Elph [Mass/Vol]0.00 g/dLNormal<=0.00[facility] Medical Centerment on above:Order Comment: Specimen Type: BLOOD SPECIMENOrdering Facility: [facility] Address:[address] [place], [place] [address]Performed By: #### [id number] ####[facility] LABCLIA [id number] [place] [address] [place] AMERICASPE STAFF REVIEW Reviewed by Marie Rosales MDChildren's Hospital of Columbus on above: Order Comment: Specimen Type: BLOOD SPECIMENOrdering Facility: [facility] Address:[address] [place], [place] [address]Performed By: #### [id number] ####[facility] LABIA [id number] [place] [address] [place] AMERICAProt SerPl-mCncon [id number] [Mass/Vol]6.7 g/dLNormal6.3-8.0[facility] Comment on above:Order Comment: Specimen Type: BLOOD SPECIMEN [facility] Address: [address] [place], [place] [address]Performed By: #### [id number] #### [facility] CLIA [id number] [address] [place], [place] [id number] [place] AMERICAAmbulatory Visit Summaryon [id number] Visit SummaryAmbulatory Visit Summary JACKY GONZALEZ :1955 Visit Date:03/12/2024 Ambulatory Visit Instructions Your Diagnosis Hypertension Hyperlipemia, mixed Generalized anxiety disorder Osteopenia of multiple sites Class 2 obesity due to excess calories in adult, Other obesity due to excess calories BMI 34.0-34.9,adult Your Care Team Attending Physician - Viral PARKER, BRUNO-Stacia POSADA Primary Care Physician - Viral PARKER, Stacia GRAHAM This Is Your Medications List atorvastatin (atorvastatin 20 mg Tab) lisinopril (lisinopril 5 mg Tab) Contact prescribing physician if questions or concerns apixaban (Eliquis 5 mg oral tablet) aspirin (aspirin 81 mg Oral EC Tab) betamethasone topical (betamethasone dipropionate topical 0.05% ointment) escitalopram (escitalopram 10 mg Tab) flecainide (flecainide 50 mg Tab) lorazepam (Ativan 0.5 mg Tab) metoprolol (metoprolol succinate 25 mg ER Tab) Procedures Performed Colonoscopy (01/15/2020), Colectomy (11/28/2018), Cryo cervix 1989's, L retinal detachment [facility] 2013. Discharge Vitals Temperature (Temporal Artery) 36.3 ???C Heart Rate (Peripheral) 76 Respiratory Rate 18 Blood Pressure 132/82 Height 66 in Height 167.6 cm Weight 216.273 lb Weight 98.1 kg BMI 34.92 What to do next Scheduled Follow-Up Appointments Tuesday 11:00 AM EDT With: Viral PARKER, BRUNO-Stacia POSADA Where: [facility] [address] [place] [address]- Tuesday 9:30 AM EDT With: Where: [facility] [address] [place] [address]- You Need to Schedule the Following Appointments Follow Up with Viral MSN, GENERAL PURCHASING AGENT-RACQUET MAKER, Stacia Mcmahan When: In 4 months Comments: chronic care Where: [address] [place] [address] Medications What How Much When Why Instructions Unchanged atorvastatin (atorvastatin 20 mg Tab) 1 Tablets By Mouth Every day Pickup at [facility]/pharmacy#[id number] Unchanged lisinopril (lisinopril 5 mg Tab) 1 Tablets By Mouth Every day Duration: 90 Days Pickup [facility]/pharmacy #[id number] Unchanged apixaban (Eliquis 5 mg oral tablet) 180 EA, 0 Refill(s), TAKE 1 TABLET BY MOUTH TWICE A DAY Contact prescribing physician if questions or concerns Unchanged aspirin (aspirin 81 mg Oral EC Tab) 1 Tablets By Mouth Every day Contact prescribing physician if questions or concerns Unchanged betamethasone topical (betamethasone dipropionate topical 0.05% ointment) 1 Application Topical 2 times a day Contact prescribing physician if questions or concerns Unchanged escitalopram (escitalopram 10 mg Tab) See instructions TAKE 1.5 TABLETS BY MOUTH DAILY Contact prescribing physician if questions or concerns Unchanged flecainide (flecainide 50 mg Tab) 60 EA, 0 Refill(s), TAKE 1 TABLET BY MOUTH TWICE A DAY Contact prescribing physician if questions or concerns Unchanged lorazepam (Ativan 0.5 mg Tab) 1 Tablets By Mouth 3 times a day as needed for anxiety Anxiety, generalized duration 30 days Contact prescribing physician if questions or concerns Unchanged metoprolol (metoprolol succinate 25 mg ER Tab) 1 Tablets By Mouth Every day Contact prescribing physician if questions or concerns Pharmacy Information [facility]/pharmacy #[id number]: [address], [place] [phone] Medications and Immunizations Administered Not Given influenza virus vaccine, inactivated, Postpone due to refusal Allergies No Known Allergies No Known Medication Allergies Problems Ongoing - Any problem that you are currently receiving treatment for. 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 Chronic uveitis Herpes zoster Primary ovarian failure Splenic vein thrombosis Patient Survey You may receive a survey via text or e-mail asking about your office visit. Please share your experience with us by completing your survey. We appreciate your feedback and thank you for choosing us for your care. Education Materials Osteopenia Osteopenia is a loss of thickness (density) inside the bones. Another name for osteopenia is low bone mass. Mild osteopenia is a normal part of aging. It is not a disease, and it does not cause symptoms. However, if you have osteopenia and continue to (more content not included)... [facility] Medicine Office/Clinic Noteon 03-12-2024 Family Medicine Office/Clinic NoteMiravista [facility] Office/Clinic Note Chief Complaint The patient reported concerns regarding blood pressure maintenance. HPI Staff Patient is here for follow up on hypertension. How often are you checking your blood pressure? Not checking What are your average readings? Are you compliant with your diet? yes Do you exercise? no Are you compliant with your medications? yes Are you having difficulty affording your medications? no Do you have side effects from the medication? no Do you have any of the following symptoms? Chest Pain? no Palpitations? no FERRARA/SOB? no Headache? no Peripheral Edema? no Light Headedness? no History of Present Illness 68 Years old Female here for 4 month f.u HPI staff / Chief Complaint confirmed with the patient Social: The patient is NOT ; _ since _ The patient is NOT currently working; RETIRED Screening: Colon Cancer screenin11/2018 found to have cancer, repeat scope 01/15/2020 with a 3 year f/u recommended; this patient does NOT have family history of colon cancer Breast cancer screenin03/04/2022 ; this patient does NOT have a family history of breast cancer Pap smear: NA DEXA: 03/11/2023 Labs: June 28, 2023 Tevin Guardado Eye exam: recent retina detachment to left eye repair 10/2023 List of Providers: Oncologist: [employer] Associate: Tevin Future Appointments [facility] STAR Jacob Appvioleta. Date: 01/14/2025 9:30 AM Scheduled Provider: STAR Jacob [employer] Phone: -- Fax: -- The patient noted previously stable readings, such as 120/80, but has noticed fluctuations without discernible cause. During the visit, discussions included the patient's recent encounter regarding blood pressure readings, but current lifestyle does not seem to contribute directly to observed changes. She also mentioned last blood work was conducted in June at [facility]. The patient is on a regime that includes Ativan, which she uses sparingly, and stated an effort to reduce dependence on it for anxiety management, utilizing it only in situations of increased stress.Moreover, she has dealt with familial responsibilities and stress from loss, which might impact herhypertension. Review of Systems PHQ Score Initial Depression Screen Score: 0 SCORE - Psychiatry: Reports feeling better about past surgeries and handling anxiety with reduced frequency in using Ativan. Physical Exam Vitals & Measurements T: 36.3 ???C(Temporal Artery) HR: 76(Peripheral) RR: 18 BP: 132/82 SpO2: 97% HT: 66 in HT: 167.6 cm WT: 98.1 kg WT: 216.273 lb BMI: 34.92 Constitutional: Well-groomed, well-nourished, no signs of acute distress. HEENT: Head normocephalic, sclera is clear. Second ear, pain noted. Cardiothoracic: Heart rate and rhythm is regular strong, normal S1 and S2. No murmurs, rubs, or bruits auscultated. No peripheral edema, peripheral pulses +2 Respiratory: Lung sounds are clear throughout, respirations regular nonlabored. Abdomen/GI: Abdomen soft nondistended. Musculoskeletal: Gait is steady, full range of motion. Integument: No rashes or lesions noted to the exposed skin. Psychiatric: Alert and oriented x 3, pleasant, no mood changes. Assessment/Plan 1. Generalized anxiety disorder (F41.1: Generalized anxiety disorder) Continue current prescription of Ativan as needed with careful monitoring due to good control of symptoms and infrequent usage. Patient is advised to explore non-pharmacological approaches such as cognitive behavioral techniques for further anxiety reduction. Will follow-up in 4 months OARRS reviewed. No abnormal discrepancies found. We will proceed with prescription management. 03/12/2024 14:16:47 2. Hypertension (I10: Essential (primary) hypertension) The importance of the following were all reviewed with the patient: -Take medications as prescribed. There are simple Lifestyle Modifications that you can do to reduce your blood pressure. -Weight Reduction -Follow the DASH eating plan. -Reduce Sodium (Salt) Intake to 2000mg per day. -Use Moderation when consuming alcohol. - To improve your health we recommend increasing your level of moderate exercise to at least 2.5 hrs per week. Blood pressure was mildly elevated in the office on recheck it was back to normal. At this time we will discontinue lisinopril as previously prescribed. Will let the office know if there is any elevation in her readings at home. 3. Class 2 obesity due to excess calories in adult (E66.09: Other obesity due to excess calories) Calorie restriction along with routine aerobic exercises discussed in order to avoid hypertension, osteoarthritis, metabolic syndrome and/or worsening of chronic underlying disease states. Encouragedto limit sugary drinks, foods high in sodium, as well as alcohol. 4. BMI 34.0-34.9,adult (Z68.34: Body mass index [BMI] 34.0-34.9, adult) see #3 Orders: atorvastatin, 20 mg = 1 tab(s), Oral, Daily, # 90 tab(s), Refills(s) 3, Pharm[id number], (more content not included)...[facility] EastComment on above:Result Comment: Electronically Signed By: Viral PARKER, GENERAL PURCHASING AGENT-ALBINO, Stacia Mcmahan\.br\Date and Time Signed: 03/12/24 15:04 ESTOCT MACULA CIRRUS OU (BOTH EYES)on [id number] ClinicRadiology Study observation (narrative)[facility] with Auto Differentialon [id number] (Bld) [#/Vol]0.03 10*3/uLBon Secours Mercy HealthBasophils/100 WBC (Bld)1 %0 - 2 %[facility] HealthEosinophils (Bld) [#/Vol]0.19 10*3/uLBon Secours Mercy HealthEosinophils/100 WBC (Bld)3 %1 - 4 %[facility] HealthErythrocyte distribution width (RBC) [Ratio]13.1 %11.8 - 14.4 %[facility] Hematocrit (Bld) [Volume fraction]37.7 %36.3 - 47.1 %[facility] Hemoglobin (Bld) [Mass/Vol]11.7 g/dLLow11.9 - 15.1 g/dLBon [facility] Immature granulocytes (Bld) [#/Vol]Bon [facility] HospitalImmature granulocytes/100 WBC (Bld)0 %0Bon [facility] HospitalInterpretation and review of laboratory resultsAbnormalBon [facility]ica Flower HospitalLymphocytes/100 WBC (Bld)34 %24 - 43 %[facility] HospitalLymphocytes/100 WBC (Bld)2.19 %[facility] PatrickH (RBC) [Entitic mass]27.1 pg25.2 - 33.5 pgPioneer Community Hospital of PatrickHC (RBC) [Mass/Vol]31.0 g/dL28.4 - 34.8 g/dLBon [facility] HospitalV (RBC) [Entitic vol]87.3 fL82.6 - 102.9 fLCarilion Roanoke Memorial HospitalMonocytes/100 WBC (Bld)6 %3 - 12 %[facility] HospitalMonocytes/100 WBC (Bld)0.38 %[facility] HospitalNeutrophils/100 WBC (Bld)56 %36 - 65 %[facility] HospitalNucleated RBC/100 WBC (Bld) [Ratio]0.0 %0.0 per 100 WBCCarilion Roanoke Memorial HospitalPlatelet mean volume (Bld) [Entitic vol]9.5 fL8.1 - 13.5 fLCarilion Roanoke Memorial HospitalPlatelets (Bld) [#/Vol]277 10*3/uLBon Promedica Flower HospitalRBC (Bld) [#/Vol]4.32 10*6/uL3.95 - 5.11 m/uLCarilion Roanoke Memorial HospitalSegmented neutrophils/100 WBC (Bld)3.73 %[facility] HospitalWBC other (Bld) [#/Vol] 6.5Bon SecAscension Saint Clare's HospitalCBC with Diffon 03-05-2024 Abs. Basophil0.03 k/uLNormal0.00-0.20Mercy Ramer HospitalComment on above: Performed By: #### CEA #### [address] [address] [employer] Officer: Daniel Malone MD #### CDP, CP #### [address] [place], [place] [id number] [employer]: Karli Donald.Imm.Granulocyte<0.35Auztpv2.00-0.30[facility] Medical CenterComment on above:Performed By: #### CEA #### [address] [address] [employer]: Daniel Malone MD #### CDP, CP #### [address] [place] [address] [employer]: Karli Donald.Neutrophil (Seg)3.73 k/uLNormal1.50-8.10[facility] Medical CenterComment on above:Performed By: #### CEA #### [address] [address] [employer]: Daniel Malone MD #### CDP, CP #### [address] [place] [address] [employer]: Kelsie Pedro MDBasophils/100 WBC (Bld)1 %Normal0-2MThe [facility] Hospital on above:Performed By: #### CEA #### [address] [address] [employer]: Daniel Malone MD #### CDP, CP #### [address] [place] [address] [employer]: Kelsie Pedro MDEosinophils (Bld) [#/Vol]0.19 10*3/uLNormal 0.00-0.44Mercy Ramer HospitalComment on above:Performed By: #### CEA #### [address] [address] [employer]: Daniel Malone MD #### CDP, CP #### [address] [place], [place] [id number] [employer]: Kelsie Pedro MDEosinophils/100 WBC (Bld)3 %Normal1-4[facility] Hospital Southment on above:Performed By: #### CEA #### [address] [address] [employer]: Daniel Malone MD #### CDP, CP #### [address] [place] [id number] [employer]: Kelsie Pedro MDErythrocyte distribution width (RBC) [Ratio]13.1 % Agizcf02.8-14.4[facility] Medical CenterComment on above:Performed By: #### CEA #### [address] [address] [employer]: Daniel Malone MD #### CDP, CP #### [address] [place] [address] [employer]: Kelsie Pedro MDHematocrit (Bld) [Volume fraction]37.7 %Normal 36.3-47.1MThe [facility] Hospital on above:Performed By: #### CEA #### [address] [address] [employer]: Daniel Malone MD #### CDP, CP #### [address] [place] [address] [employer]: Kelsie Pedro MDHemoglobin (Bld) [Mass/Vol]11.7 g/dLLow11.9-15.1 [facility] on above:Performed By: #### CEA #### [address] [address] [employer]: Daniel Malone MD #### CDP, CP #### [address] [place] [address] [employer]: Kelsie Pedro MDImmature granulocytes/100 WBC (Bld)0 %Ululbg6OgcpjCommunity Regional Medical CenterComment on above:Performed By: #### CEA #### [address] [address] [employer]: Daniel Malone MD #### CDP, CP #### [address] [place] [address] [employer]: Kelsie Pedro MDLymphocytes (Bld) [#/Vol]2.19 10*3/uLNormal 1.10-3.70[facility] Medical CenterComment on above:Performed By: #### CEA #### [address] [address] [employer]: Daniel Malone MD #### CDP, CP #### [address] [place] [address] [employer]: Kelsie Pedro MDLymphocytes/100 WBC (Bld)34 %Xpwbyc97-38FfgevCommunity Regional Medical CenterComment on above:Performed By: #### CEA #### [address] [address] [employer]: Daniel Malone MD #### CDP, CP #### [address] [place] [address] [employer]: OCTAVIA DonaldCH (RBC) [Entitic mass]27.1 paMaarbo18.2-33.5 [facility] CenterComment on above:Performed By: #### CEA #### [address] [address] [employer]: Daniel Malone MD #### CDP, CP #### [address] [place] [address] [employer]: Kelsie Pedro MDMCHC (RBC) [Mass/Vol]31.0 g/sZBbazia19.4-34.8[facility] CenterComment on above:Performed By: #### CEA #### [address] [address] [employer]: Daniel Malone MD #### CDP, CP #### [address] [place] [address] [employer]: OCTAVIA DonaldCV (RBC) [Entitic vol]87.3 aHNefbdh20.6-102.9 [facility] CenterComment on above:Performed By: #### CEA #### [address] [address] [employer]: Daniel Malone MD #### CDP, CP #### [address] [place] [address] [employer]: Kelsie Pedro MDMonocytes (Bld) [#/Vol]0.38 10*3/uLNormal0.10-1.20 [facility] CenterComment on above:Performed By: #### CEA #### [address] [address] [employer]: Daniel Malone MD #### CDP, CP #### [address] [place] [address] [employer]: Kelsie Pedro MDMonocytes/100 WBC (Bld)6 %Normal3-12[facility] CenterComment on above:Performed By: #### CEA #### [address] [address] [employer]: Daniel Malone MD #### CDP, CP #### [address] [place], [place] [address] [employer]: Kelsie Pedro MDNeutrophil (Seg)56 %Uwaxpn72-78IauynCommunity Regional Medical CenterComment on above:Performed By: #### CEA #### [address] [address] [employer]: Daniel Malone MD #### CDP, CP #### [address] [place], [place] [address]83 [employer]: Kelsie Pedro MDNRBC Automated0.0 per 100 WBCNormal0.0[facility] Medical CenterComment on above:Performed By: #### CEA #### [address] [address] [employer]: Daniel Malone MD #### CDP, CP #### [address] [place], [place] [address] [employer]: Sammy Donald mean volume (Bld) [Entitic vol]9.5 fL Normal8.1-13.5[facility] Medical CenterComment on above:Performed By: #### CEA #### [address] [address] [employer]: Daniel Malone MD #### CDP, CP #### [address] [place], [place] [address] [employer]: Feliz Donald (Bld) [#/Vol]277 10*3/jTZhclxp019-394 [facility] CenterComment on above:Performed By: #### CEA #### [address] [address] [employer]: Daniel Malone MD #### CDP, CP #### [address] [place], [place] [address] [employer]: IVAN Donald (d) [#/Vol]4.32 10*6/uLNormal3.95-5.11[facility] Medical CenterComment on above:Performed By: #### CEA #### [address] [address] [employer]: Daniel Malone MD #### CDP, CP #### [address] [place], [place] 133[address] [employer] Officer: Kelsie Pedro MDNICHOLAS H NOYES [facility] ([facility]) [#/Vol]6.5 10*3/uLNormal3.5-11.3MChildren's Hospital of ColumbusComment on above:Performed By: #### CEA #### [address] [address] [employer]: Daniel Malone MD #### CDP, CP #### [address] [place], [place] [address]83 [employer]: Brain Donald 20-05-5132Jutpmevxplsawsfy Ag [Mass/Vol]4.3 ng/mLHigh0.0 - 3.8 ng/mLShenandoah Memorial Hospital on above:The Andres ECLIA assay is used. Results obtained with different assay methods cannot be used interchangeably. Interpretation and review of laboratory resultsAbnormSentara Obici HospitalCarcinoembry. Antig.on [id number]. Antig.4.3 ng/mLHigh0.0-3.8[facility] on above:Result Comment: The Andres ECLIA assay is used. Results obtained with different assay methods cannot be used interchangeably.Performed By: #### CEA #### [place] [place] [address] [employer]: Daniel Malone MD #### CDP, CP #### [address] [place], [place] 8[address]83 [employer]: ANAHY Donaldomp Metabolic Profon [id number] [Mass/Vol] 4.0 g/dLNormal3.5-5.2Mercy Ramer HospitalComment on above:Performed By: #### CEA #### [address] [address] [employer]: Daniel Malone MD #### CDP, CP #### [address] [place], [place] 450[address]183 [employer]: Kelsie Pedro MDAlbumin/Glob Ratio1.7Ladgdk5.0-2.5[facility] Medical CenterComment on above:Performed By: #### CEA #### [address] [address] [employer]: Daniel Malone MD #### CDP, CP #### [address] [place], [place] [address] [employer]: Miranda Donald Hpsk353 U/JTdde74-894BjuqiCommunity Regional Medical CenterComment on above:Performed By: #### CEA #### [address] [address] [employer]: Daniel Malone MD #### CDP, CP #### [address] [place], [place] [address]83 [employer]: Kelsie Pedro MDALT [Catalytic activity/Vol]16 U/SKaowic65-83MixfbCommunity Regional Medical CenterComment on above:Performed By: #### CEA #### [address] [address] [employer]: Daniel Malone MD #### CDP, CP #### [address] [place] [address] [employer]: Kelsie Pedro MDAnion gap [Moles/Vol]10 mmol/LNormal9-16[facility] Medical CenterComment on above:Performed By: #### CEA #### [address] [address] [employer]: Daniel Malone MD #### CDP, CP #### [address] [place], [place] 434[address]83 [employer]: Kelsie Pedro MDAST [Catalytic activity/Vol]20 U/KGyhevg87-89VjbyvCommunity Regional Medical CenterComment on above:Performed By: #### CEA #### [address] [address] [employer]: Daniel Malone MD #### CDP, CP #### [address] [place] [address]83 [employer]: Kelsie Pedro MDBilirubin [Mass/Vol]0.8 mg/dLNormal0.00-1.20[facility] Medical CenterComment on above:Performed By: #### CEA #### [address] [address] [employer]: Daniel Malone MD #### CDP, CP #### [address] [place] [address]83 [employer] Officer: Kelsie Pedro MDBUN/CRE Kjrof17Okuyor5-67Ilqlr [facility] Comment on above:Performed By: #### CEA #### [address] [address] [employer]: Daniel Malone MD #### CDP, CP #### [address] [place], [place] 316[address]83 [employer] Officer: ANAHY Donaldalcium [Mass/Vol]8.8 mg/dLNormal8.6-10.4[facility] Medical CenterComment on above:Performed By: #### CEA #### [address] [place] [address] [employer]: Daniel Malone MD #### CDP, CP #### [address] [place] [address]83 [employer] Officer: ANAHY Donaldhloride [Moles/Vol]106 mmol/JFoingv25-253AklgiCommunity Regional Medical CenterComment on above:Performed By: #### CEA #### [address] [address] [employer]: Daniel Malone MD #### CDP, CP #### [address] [place] [address] ( [employer] Officer: ANAHY DonaldO2 [Moles/Vol]25 mmol/PUdpljk24-95Ohewu [facility]iffin HospitalComment on above:Performed By: #### CEA #### [address] [address] [employer]: Daniel Malone MD #### CDP, CP #### [address] [place] [address] [employer] Officer: ANAHY Donaldreatinine [Mass/Vol]1.1 mg/dLHigh0.50-0.90[facility] Medical CenterComment on above:Performed By: #### CEA #### [address] [address] [employer]: Daniel Malone MD #### CDP, CP #### [address] [place] [address] [employer] Officer: Kelsie Pedro MDGFR/1.73 sq M.predicted among non-blacks MDRD (S/P/Bld) [Vol rate/Area]56 mL/min/{1.73_m2}Low>60[facility] HospitalComment on above:Result Comment: These results are not intended for use in patients <18 years of age. eGFR results are calculated without a race factor using the 2020 CKD-EPI equation. Careful clinical correlation is recommended, particularly when comparing to results calculated using previous equations. The CKD-EPI equation is less accurate in patients with extremes of muscle mass, extra-renal metabolism of creatine, excessive creatine ingestion, or following therapy that affects renal tubular secretion.Performed By: #### CEA #### [address] [address] [employer]: Daniel Malone MD #### CDP, CP #### [address] [place] [address] [employer]: Kelsie Pedro MDGlucose [Mass/Vol]105 mg/lEKhue01-11AxvrxChildren's Hospital of ColumbusComment on above:Performed By: #### CEA #### [address] [address] [employer]: Daniel Malone MD #### CDP, CP #### [address] [place] [address]83 [employer]: Kelsie Pedro MDPotassium [Moles/Vol]3.9 mmol/LNormal3.7-5.3[facility] Institute Of LivingComment on above:Performed By: #### CEA #### [address] [address] [employer]: Daniel Malone MD #### CDP, CP #### [address] [place] [address] [employer]: Kelsie Pedro MDProtein [Mass/Vol]6.9 g/dLNormal6.6-8.7[facility] Medical CenterComment on above:Performed By: #### CEA #### [address] [address] [employer]: Daniel Malone MD #### CDP, CP #### [facility] [address] [place] [address] [employer] Officer: BRIANNA Donaldodium [Moles/Vol]141 mmol/FYelijw478-329XsirpCommunity Regional Medical CenterComment on above:Performed By: #### CEA #### [facility] [address] [place], [place] 6[address] [employer]: Daniel Malone MD #### CDP, CP #### [facility] [address] [place] [address] [place] [address] [employer]: Kelsie Pedro MDUrea nitrogen [Mass/Vol]13 mg/dLNormal8-23[facility] Medical CenterComment on above:Performed By: #### CEA #### [facility] [address] [place], [place] [id number] [employer]: Daniel Malone MD #### CDP, CP #### [facility] [address] [place] [address] [place] [address] [employer] Officer: ANAHY Donaldomprehensive Metabolic Panelon [id number] [Mass/Vol]4.0 g/dL3.5 - 5.2 g/dLBon [facility] Flower HospitalAlbumin/Globulin [Mass ratio]1.3 {ratio}1.0 - 2.5[facility] HealthALP [Catalytic activity/Vol] 131 U/LHigh35 - 104 U/LBon [facility] HealthALT [Catalytic activity/Vol]16 U/L10 - 35 U/LBon Promedica Flower HospitalAnion gap [Moles/Vol]10 mmol/L9 - 16 mmol/LBon [facility] HealthAST [Catalytic activity/Vol]20 U/L10 - 35 U/LBon [facility] HealthBilirubin [Mass/Vol]0.8 mg/dL0.00 - 1.20 mg/dLBon [facility] HealthCalcium [Mass/Vol]8.8 mg/dL8.6 - 10.4 mg/dLBon [facility] Luke[facility]S Hospitalours St. Rita'S HospitalProvenance Biopharmaceuticals Chloride [Moles/Vol]106 mmol/L98 - 107 mmol/LBon Secours Xianguo HealthCO2 [Moles/Vol]25 mmol/L20 - 31 mmol/LBon Secours Xianguo [facility] HospitalCreatinine [Mass/Vol] 1.1 mg/dLHigh0.50 - 0.90 mg/dLBon Secours Xianguo HealthEst, Globeatriz Filt Jedp84Pxq- PINFBon Secours Cincinnati Va Medical CenterComment on above: These results are not intended for use in patients <18 years of age. eGFR results are calculated without a race factor using the 2020 CKD-EPI equation. Careful clinical correlation is recommended, particularly when comparing to results calculated using previous equations. The CKD-EPI equation is less accurate in patients with extremes of muscle mass, extra-renal metabolism of creatine, excessive creatine ingestion, or following therapy that affects renal tubular secretion. Glucose [Mass/Vol]105 mg/vMVphd38 - 99 mg/dLBon [address] Luke'S HospitalSocioSquare St. Rita'S HospitalProvenance Biopharmaceuticals Interpretation and review of laboratory resultsAbnormalBon [facility] Potassium [Moles/Vol]3.9 mmol/L3.7 - 5.3 mmol/LBon Secours Xianguo HealthProtein [Mass/Vol]6.9 g/dL6.6 - 8.7 g/dLBon Secours St. Rita'S HospitalCobase [facility] HospitalSodium [Moles/Vol]141 mmol/L136 - 145 mmol/LBon Secdelaware hospital for the chronically ill VirtuixUrea nitrogen [Mass/Vol]13 mg/dL8 - 23 mg/dLBon [facility] StyleHopUrea nitrogen/Creatinine [Mass ratio]12 mg/mg9 - 20Bon SecBucyrus Community HospitalBon SecBucyrus Community HospitalFUNDUS PHOTOS OU (BOTH EYES) on [id number] ClinicRadiology Study observation (narrative)[facility] HospitalOCT MACULA CIRRUS OU (BOTH EYES)on [id number] ClinicRadiology Study observation (narrative)[facility] HospitalCNOVon [id number] Visit (CARDMN) JACKY GONZALEZ ([id number]) 1955 F Date Time Provider Department 01/02/24 2:45 PM REJI RICHARDSON CARDMN During your visit today, we recorded the following information about you: Pulse Blood pressure Weight Height 83/minute 147/81 95.2 kg 1.651 m Reji Richardson MD 01/02/2024 3:36 PM Signed [facility] [place] [facility] Shrestha Department of Cardiovascular Medicine SECTION OF CARDIAC PACING and ELECTROPHYSIOLOGY OUTPATIENT VISIT DATE January 02, 2024 OUTPATIENT VISIT TYPE NEW PRIMARY CARE PHYSICIAN: STACIA ANDERSON [address] [place] [address] [place] [address] REFERRING PHYSICIAN: Shadi Loyd MD [address] [place] [address] [place] [id number] CHIEF COMPLAINT: AF HISTORY OF PRESENT ILLNESS/NURSING INTAKE NOTE: Ms. Gonzalez is a 68 year old female who presents today for atrial fibrillation. She has a history of HTN, HLD, KEREN (not using CPAP), atrial fibrillation (dx 03/2023), colon cancer, s/p surgery 2018 and chemotherapy 2019 and hx of splenic vein thrombosis. She was first diagnosed with new onset atrial fibrillation 03/2023 in the setting of hospital admission for COVID. Echo 04/03/2023 showed EF=55-60%. nurse monitoring 04/03/2023 did not show atrial fibrillation. Stress Test 04/2023 was negative for ischemia. Home sleep study 05/10/2023 showed moderate sleep apnea. She was given a CPAP but did not tolerate it and has not been using it. At follow up 10/2023 she reported episodes of atrial fibrillation. She reports she had 2 episodes (once in July and once in October) which lasted 6-8 hours. She reports having irregular heart beats, shortness of breath on exertion, and fatigue with the episodes. Her BP noted irregular beats with the episodes. She wore a follow up teletypesetter monitor 11/10/2023 whish did not show any atrial fibrillation, showed rare PACs. She was tried on Multaq but did not tolerate, due to vomiting, dizziness and near syncope. She was prescribed Flecainide in early November, but she did not start it. She denies chest pain or syncope. 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 PAST SURGICAL HISTORY Procedure Laterality Date CATARACT EXTRACTION HX Left 06/25/2015 CATARACT EXTRACTION W/ INTRAOCULAR LENS IMPLANT HX Right 05/05/2020 Dr Bloom EYE SURGERY HX Right 12/18/2020 Pars plana vitrectomy/EL/gas Right eye EYE SURGERY PROCEDURE DALK OS PAST SURGICAL HISTORY OF Left 10/26/2023 PPV/PFO/MP/EL/FAX/C3F8 for recurrent RRD with early PVR OS (10/26/23, Ludivina/Yovani) REPAIR RETINAL DETACHMENT SCLERAL BUCKLING Right 01/31/2018 SB (Scleral Buckle) VITRECTOMY MECHANICAL PARS PLANA 01/29/2014 PPV (Pars Plana Vitrectomy) OS SOCIAL HISTORY Social History Tobacco Use Smoking status: Never Smokeless tobacco: Never Vaping Use Vaping status: Never Used Substance Use Topics Alcohol use: No Drug use: No FAMILY HISTORY Problem Relation Age of Onset Diabetes Mother Hypertension Mother Cataract Mother Thyroid Father Heart Father Cataract Father Detached Retina Father No Ocular Disease Other No Ocular Disease Sister No Ocular Disease Brother No Ocular Disease Maternal Grandmother No Ocular Disease Maternal Grandfather No Ocular Disease Paternal Grandmother No Ocular Disease Paternal Grandfather ALLERGIES: ALLERGIES No Known Allergies MEDICATIONS: metoprolol succinate ER (TOPROL XL) 25 mg 24 hr tablet Take 1 tablet by mouth every afternoon. apixaban (ELIQUIS) 5 mg tab(s) Take 1 tablet by mouth two times a day. lisinopril (ZESTRIL) 5 mg tablet Take 5 mg by mouth once daily. betamethasone dipropionate 0.05 % ointment Apply to affected area. prn aspirin, enteric coated (ASPIRIN, ENTERIC COATED) 81 mg EC tablet Take 81 mg by mouth. atorvastatin (LIPITOR) 20 mg tablet Take 20 mg by mouth. escitalopram oxalate (LEXAPRO) 10 mg tablet Take 10 mg by mouth once daily. LORazepam (ATIVAN) 0.5 mg Take 1 tablet by mouth three times daily as needed. flecainide (TAMBOCOR) 50 mg tablet Take 50 mg by mouth two times a day. (Patient not taking: Reported on 01/02/2024) ofloxacin (OCUFLOX) 0.3 % (more content not included)...NormalProvidence HospitalEC COMPLETEon [id number] COMPLETEVentricular Rate : 77 BPM Atrial Rate : 77 BPM P-R Interval : 238 ms QRS Duration : 86 ms Q-T Interval : 402 ms QTC Calculation(Bazett) : 454 ms Calculated P Midnight : 23 degrees Calculated R Midnight : -27 degrees Calculated T Midnight : 40 degrees SINUS RHYTHM WITH 1ST DEGREE AV BLOCK OTHERWISE NORMAL ECG Confirmed by MD SALAS HEBA ([id number]) on 01/30/2024 8:05:02 PM NAME : JACKY GONZALEZ PID : [id number] : 1955 Gender : Female Race : ORD : [id number] Procedure Date : Jan 02 2024 13:37:08 Edit Date : Jan 30 2024 20:05:06 Diagnosis: SINUS RHYTHM WITH 1ST DEGREE AV BLOCK OTHERWISE NORMAL ECG Confirmed by MD SALAS HEBA ([id number]) on 01/30/2024 8:05:02 PM Test Reason : Location : 314 : J14 j14-07 Overread By : MD SALAS HEBA Edited By : MD SALAS HEBA Referred By : REJI RICHARDSON Acquired by : Jc ELLIOTTTrinity Health System East CampusSammi 12-23-2023 CNPNTelephone (CARDMN) ALLIOSNBRITTONJACKY J ([id number]) 1955 F Date Time Provider Department 12/23/23 REJI RICHARDSON During your visit today, we recorded the following information about you: Nupur De Leon 12/23/2023 5:47 PM Signed Received faxed office notes. Scanned in the system and the shared drive Nupur Holland, Admin Allergies As of Date: 12/23/2023 (No Known Allergies) Date Reviewed: 11/25/2023 Reviewed by: Tati Arenas MD - Fully Assessed Reason for Visit: Received Outside Medical Records [[id number]] Prescriptions as of 12/23/2023 - atropine sulfate (ATROPINE OPHTHALMIC) Use 1 Drop in the left eye daily at bedtime. - ofloxacin (OCUFLOX) 0.3 % ophthalmic solution Use 1 Drop in the left eye four times daily. - prednisoLONE acetate (PRED FORTE) 1 % ophthalmic suspension Use 1 Drop in the left eye four times daily. - apixaban (ELIQUIS) 5 mg tab(s) Take 1 tablet by mouth two times a day. - lisinopril (ZESTRIL) 5 mg tablet Take 5 mg by mouth once daily. - betamethasone dipropionate 0.05 % ointment Apply to affected area. prn - aspirin, enteric coated (ASPIRIN, ENTERIC COATED) 81 mg EC tablet Take 81 mg by mouth. - atorvastatin (LIPITOR) 20 mg tablet Take 20 mg by mouth. - escitalopram oxalate (LEXAPRO) 10 mg tablet Take 10 mg by mouth once daily. - LORazepam (ATIVAN) 0.5 mg Take 1 tablet by mouth three times daily as needed. 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] 10/23/2015 High risk medication use [Z79.899] 01/05/2018 Elevated LFTs [R79.89] 01/05/2018 Retinal detachment, right [H33.21] 01/30/2018 History of colon cancer [Z85.038] 11/08/2019 Combined forms of age-related cataract of right*05/02/2020 07/06/2022 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] 12/17/2020 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, 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, stable, 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] 12/17/2020 Pseudophakia of both eyes [Z96.1] 12/17/2020 Optic disc edema of right eye [H47.10] 12/29/2021 Status post corneal transplant [Z94.7] 12/29/2021 Epiretinal membrane (ERM) of right eye [H35.371]12/29/2021 Pseudophakia, both eyes [Z96.1] 07/06/2022 History of detached retina repair [Z98.890, Z86*07/06/2022 Dyslipidemia [E78.5] 04/04/2023 Irritable bowel syndrome [K58.9] 10/26/2023 PAF (paroxysmal atrial fibrillation) (HCC) [I48*04/04/2023 Splenic vein thrombosis [I82.890] 07/25/2019 Cerebrovascular disease [I67.9] 02/11/2022 KEREN on CPAP [G47.33] 10/26/2023 Encounter Status:Closed by NUPUR DE LEON on 12/23/23NoCleveland Clinic Mentor HospitalSammi [id number] (REFPHY) JACKY GONZALEZ ([id number]) 1955 F Date Time Provider Department 11/09/23 NO ONE (HISTORICAL) REFPHY During your visit today, we recorded the following information about you: Parisa Shaferrice 11/09/2023 3:13 PM Signed Patient: Jacky Gonzalez Date of : 1955 Patient phone number: [phone] Referring Provider for the encounter: Electrophysiology Requesting Provider: Shadi Loyd MD Reason for requesting visit (RFV/signs and symptoms/diagnosis): Paroxysmal Atrial Fibrillation, abnormal ECG, Dyslipidemia, Primary Hypertension, KEREN, Goiter, Chronic anticoagulation Person calling: caregiver: Nahun Return call to: caregiver: nahun Medical Records/Insurance Card scanned into iFit: No Comments: none Allergies As of Date: 11/09/2023 (No Known Allergies) Date Reviewed: 11/08/2023 Reviewed by: Tati Arenas MD - Fully Assessed Prescriptions as of 11/09/2023 - prednisoLONE acetate (PRED FORTE) 1 % ophthalmic suspension Use 1 Drop in the left eye four times daily. - ofloxacin (OCUFLOX) 0.3 % ophthalmic solution Use 1 Drop in the left eye four times daily. - prednisoLONE acetate (PRED FORTE) 1 % ophthalmic suspension Use 1 Drop in the left eye four times daily. - apixaban (ELIQUIS) 5 mg tab(s) Take 1 tablet by mouth two times a day. - lisinopril (ZESTRIL) 5 mg tablet Take 5 mg by mouth once daily. - betamethasone dipropionate 0.05 % ointment Apply to affected area. prn - aspirin, enteric coated (ASPIRIN, ENTERIC COATED) 81 mg EC tablet Take 81 mg by mouth. - atorvastatin (LIPITOR) 20 mg tablet Take 20 mg by mouth. - escitalopram oxalate (LEXAPRO) 10 mg tablet Take 10 mg by mouth once daily. - LORazepam (ATIVAN) 0.5 mg Take 1 tablet by mouth three times daily as needed. 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] 10/23/2015 High risk medication use [Z79.899] 01/05/2018 Elevated LFTs [R79.89] 01/05/2018 Retinal detachment, right [H33.21] 01/30/2018 History of colon cancer [Z85.038] 11/08/2019 Combined forms of age-related cataract of right*05/02/2020 07/06/2022 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] 12/17/2020 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, 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, stable, 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] 12/17/2020 Pseudophakia of both eyes [Z96.1] 12/17/2020 Optic disc edema of right eye [H47.10] 12/29/2021 Status post corneal transplant [Z94.7] 12/29/2021 Epiretinal membrane (ERM) of right eye [H35.371]12/29/2021 Pseudophakia, both eyes [Z96.1] 07/06/2022 History of detached retina repair [Z98.890, Z86*07/06/2022 Dyslipidemia [E78.5] 04/04/2023 Irritable bowel syndrome [K58.9] 10/26/2023 PAF (paroxysmal atrial fibrillation) (HCC) [I48*04/04/2023 Splenic vein thrombosis [I82.890] 07/25/2019 Cerebrovascular disease [I67.9] 02/11/2022 KEREN on CPAP [G47.33] 10/26/2023 Encounter Status:Closed by ROCÍO SHAFER on 11/09/23NoOhio[facility] AUTOFLUORESCENCE PHOTO (FAF) OU (BOTH EYES)on 10-26-2023 [facility] HospitalRadiology Study observation (narrative)[facility] HospitalOCT MACULA CIRRUS OU (BOTH EYES)on [id number] ClinicRadiology Study observation (narrative)[facility] HospitalCEAon [id number] Ag [Mass/Vol]4.1 ng/mLHigh0.0 - 3.8 ng/mLBON SECOURS MEM[facility]ALTH SYSTEMY [facility] CENTERComment on above: The Andres ECLIA assay is used. Results obtained with different assay methods cannot be used interchangeably. Interpretation and review of laboratory resultsAbnormalBON [facility] BON [facility] HOSPITALCBC with Auto Differentialon [id number] (Bld) [#/Vol]0.04 10*3/uLBON SECOURS MERCY [facility] MEDICAL CENTERBasophils/100 WBC (Bld)1 %0 - 2 %[facility] MEDICAL CENTEREosinophils (Bld) [#/Vol]0.18 10*3/uLBON SECOURS MERCY [facility]IN[facility] MEDICAL CENTEREosinophils/100 WBC (Bld)3 %1 - 4 %[facility] SYSTEMY [facility] MEDICAL CENTERErythrocyte distribution width (RBC) [Ratio]12.8 %11.8 - 14.4 %[facility] Hematocrit (Bld) [Volume fraction]40.4 %36.3 - 47.1 %[facility] Hemoglobin (Bld) [Mass/Vol]13.2 g/dL11.9 - 15.1 g/dLBON [facility]MEDINA [facility] Immature granulocytes (Bld) [#/Vol]0.03 10*3/uLBON SECOURS [facility] COMPANYImmature granulocytes/100 WBC (Bld)0 %0BON [facility] MEDICAL CENTERLymphocytes/100 WBC (Bld) 39 %24 - 43 %BON SECLOURDES COUNSELING CENTERY [facility] MEDICAL CENTERLymphocytes/100 WBC (Bld)2.81 %[facility]Y [facility] MEDICAL CENTERMCH (RBC) [Entitic mass]28.0 pg25.2 - 33.5 pgBON [facility]OURS MEMORIAL HEALTH SYSTEMY [facility] MEDICAL CENTERMCHC (RBC) [Mass/Vol]32.7 g/dL28.4 - 34.8 g/dLBON SECLOURDES COUNSELING CENTERY [facility] MEDICAL CENTERMCV (RBC) [Entitic vol]85.6 fL82.6 - 102.9 fLBON SECOURS MERCY HEALTHMonocytes/100 WBC (Bld)7 %3 - 12 %[facility] HEALTHMonocytes/100 WBC (Bld)0.47 %[facility] HEALTHNeutrophils/100 WBC (Bld)50 %36 - 65 %[facility] HEALTHNucleated RBC/100 WBC (Bld) [Ratio]0.0 %0.0 per 100 WBCBON SECOURS MERCY HEALTHPlatelet mean volume (Bld) [Entitic vol]10.0 fL8.1 - 13.5 fLBON SECOURS MERCY HEALTHPlatelets (Bld) [#/Vol]282 10*3/uLBON SECOURS MERCY HEALTHRBC (Bld) [#/Vol]4.72 10*6/uL3.95 - 5.11 m/uLBON SECOURS MERCY HEALTHSegmented neutrophils/100 WBC (Bld)3.74 %[facility] HEALTHWBC other (Bld) [#/Vol] 7.3B[facility] HEALTHB[facility] HEALTHComprehensive Metabolic Panel on [id number] [Mass/Vol]4.1 g/dL3.5 - 5.2 g/dLBON SEC[facility]RS [facility]ALTH SYSTEMY HEALTH Albumin/Globulin [Mass ratio]1.3 {ratio}1.0 - 2.5B[facility] MERCY HEALTHALP [Catalytic activity/Vol]141 U/LHigh35 - 104 U/LBON [facility]RS MERCY HEALTHALT [Catalytic activity/Vol]20 U/L5 - 33 U/LBON [facility] HEALTHAnion gap [Moles/Vol]12 mmol/L9 - 17 mmol/LBON [facility] MERCY HEALTHAST [Catalytic activity/Vol]21 U/LNINF - 32 U/LBON [facility] HEALTHBilirubin [Mass/Vol]1.0 mg/dL0.3 - 1.2 mg/dLBON [facility] HEALTHCalcium [Mass/Vol]9.1 mg/dL8.6 - 10.4 mg/dLBON [facility] HEALTHChloride [Moles/Vol]104 mmol/L98 - 107 mmol/L [facility] HEALTHCO2 [Moles/Vol]23 mmol/L20 - 31 mmol/LBON SECHedgeye Risk ManagementCreatinine [Mass/Vol]0.9 mg/dL0.5 - 0.9 mg/dLBON SECOURS Radiation Monitoring Devices HEALTHEst, Glom Filt Rate70- PINFBON SECLOURDES COUNSELING CENTERCoinifyComment on above: These results are not intended for use in patients <18 years of age. eGFR results are calculated without a race factor using the 2020 CKD-EPI equation. Careful clinical correlation is recommended, particularly when comparing to results calculated using previous equations. The CKD-EPI equation is less accurate in patients with extremes of muscle mass, extra-renal metabolism of creatine, excessive creatine ingestion, or following therapy that affects renal tubular secretion. Glucose [Mass/Vol]118 mg/tHXaoz47 - 99 mg/dLBON [facility]ITALON [facility]ALTH SYSTEMCoinify Interpretation and review of laboratory resultsAbnormalBON [facility] REGIONAL HOSPITALHedgeye Risk Management Potassium [Moles/Vol]3.9 mmol/L3.7 - 5.3 mmol/LBON SECHear It First HEALTHProtein [Mass/Vol]7.2 g/dL6.4 - 8.3 g/dLBON SECHedgeye Risk ManagementSodium [Moles/Vol]139 mmol/L135 - 144 mmol/LBON SECHedgeye Risk ManagementUrea nitrogen [Mass/Vol]16 mg/dL8 - 23 mg/dLBON SEC[facility] GeoPageUrea nitrogen/Creatinine [Mass ratio]18 mg/mg9 - 20B[facility] AloricaY Risk IdentBON SECOURS AloricaY [facility] CENTERFUNDUS AUTOFLUORESCENCE PHOTO (FAF) OU (BOTH EYES)on [id number] ClinicRadiology Study observation (narrative)[facility] HospitalOCT MACULA CIRRUS OU (BOTH EYES)on [id number] ClinicRadiology Study observation (narrative)[facility] HospitalCB with Auto Differentialon [id number] (Bld) [#/Vol]0.04 10*3/uL [facility] HEALTHBasophils/100 WBC (Bld)1 %0 - 2 %[facility] HEALTHEosinophils (Bld) [#/Vol]0.15 10*3/uLBON SECOURS AloricaY Risk Ident Eosinophils/100 WBC (Bld)2 %1 - 4 %[facility]CY HEALTHErythrocyte distribution width (RBC) [Ratio]13.8 %11.8 - 14.4 %[facility] Hematocrit (Bld) [Volume fraction]41.7 %36.3 - 47.1 %[facility] Hemoglobin (Bld) [Mass/Vol]13.2 g/dL11.9 - 15.1 g/dLBON [facility] Immature granulocytes (Bld) [#/Vol]0.05 10*3/uLBON [facility] HOSPITALImmature granulocytes/100 WBC (Bld)1 %Redp5CTLRIVERSIDE BEHAVIORAL HEALTH CENTERInterpretation and review of laboratory resultsAbnormalBON MER[facility] ST. CHARLES HOSPITALLymphocytes/100 WBC (Bld)36 %24 - 43 %[facility] HEALTH CENTERLymphocytes/100 WBC (Bld)2.84 %[facility] HOSPITALH (RBC) [Entitic mass]27.8 pg25.2 - 33.5 pgBON [facility] CENTERHC (RBC) [Mass/Vol]31.7 g/dL28.4 - 34.8 g/dLBON [facility] MEDICAL CENTERV (RBC) [Entitic vol]87.8 fL82.6 - 102.9 fLRIVERSIDE BEHAVIORAL HEALTH CENTER Monocytes/100 WBC (Bld)6 %3 - 12 %[facility] CENTERMonocytes/100 WBC (Bld)0.48 %[facility] CENTERNeutrophils/100 WBC (Bld)54 %36 - 65 %[facility]ALTH CENTERNucleated RBC/100 WBC (Bld) [Ratio]0.0 %0.0 per 100 WBCRIVERSIDE BEHAVIORAL HEALTH CENTERPlatelet mean volume (Bld) [Entitic vol]10.0 fL8.1 - 13.5 fL [facility] HEALTHPlatelets (Bld) [#/Vol]243 10*3/uLBON [facility] CHARLES HOSPITALRBC (Bld) [#/Vol]4.75 10*6/uL3.95 - 5.11 m/uLRIVERSIDE BEHAVIORAL HEALTH CENTER Segmented neutrophils/100 WBC (Bld)4.42 %[facility]HAVIOR[facility] HEALTH CENTERWBC other (Bld) [#/Vol]8.0BON [facility] HOSPITALCEAon 05-26-2023 Carcinoembryonic Ag [Mass/Vol]3.8 ng/mLNINF - 3.9 ng/mLRIVERSIDE BEHAVIORAL HEALTH [facility]ENTER Comment on above:The Andres ECLIA assay is used. Results obtained with different assay methods cannot be used interchangeably. [facility] CENTERComprehensive Metabolic Panelon [id number] [Mass/Vol]3.9 g/dL3.5 - 5.2 g/dLBON [facility] HOSPITALAlbumin/Globulin [Mass ratio]1.2 {ratio}1.0 - 2.5BON [facility] CHAR[facility] HOSPITALALP [Catalytic activity/Vol] 125 U/LHigh35 - 104 U/LBON [facility] HOSPITALALT [Catalytic activity/Vol]26 U/L5 - 33 U/LBON [facility] CHAR[facility] HOSPITALAnion gap [Moles/Vol]13 mmol/L9 - 17 mmol/L [facility] HEALTH CENTERAST [Catalytic activity/Vol]21 U/LNINF - 32 U/LBON [facility] HOSPITALBilirubin [Mass/Vol]0.7 mg/dL0.3 - 1.2 mg/dLBON [facility] HOSPITALCalcium [Mass/Vol]9.1 mg/dL8.6 - 10.4 mg/dLBON [facility] Chloride [Moles/Vol]102 mmol/L98 - 107 mmol/LBON [facility] CHAR[facility] HOSPITALCO2 [Moles/Vol]23 mmol/L20 - 31 mmol/LBON [facility] HOSPITALCreatinine [Mass/Vol] 0.9 mg/dL0.5 - 0.9 mg/dLBON [facility] HOSPITALGFR/1.73 sq M.predicted MDRD (S/P/Bld) [Vol rate/Area]- PINFBON [facility] ST. CHARLES HOSPITALComment on above: These results are not intended for use in patients <18 years of age. eGFR results are calculated without a race factor using the 2020 CKD-EPI equation. Careful clinical correlation is recommended, particularly when comparing to results calculated using previous equations. The CKD-EPI equation is less accurate in patients with extremes of muscle mass, extra-renal metabolism of creatine, excessive creatine ingestion, or following therapy that affects renal tubular secretion. Glucose [Mass/Vol]138 mg/bILctn92 - 99 mg/dLBON [facility] Interpretation and review of laboratory resultsAbnormalBON [facility] Potassium [Moles/Vol]4.2 mmol/L3.7 - 5.3 mmol/LBON [facility] HOS[facility]ITALProtein [Mass/Vol]7.2 g/dL6.4 - 8.3 g/dLBON [facility] CHARLES HOSPITALSodium [Moles/Vol]138 mmol/L135 - 144 mmol/LBON [facility] CHARLES HOSPITALUrea nitrogen [Mass/Vol]20 mg/dL8 - 23 mg/dLBON [facility] CHARLES HOSPITALUrea nitrogen/Creatinine [Mass ratio]22 mg/mg High9 - 20BON ST. [facility]ARY[facility]ALTHCARE CENTERCT Lumbar spine WO contraston [id number] acute bony abnormalities are noted. Multilevel lumbar facet arthropathy and degenerative disc disease as described above. Nonobstructing right renal stone RECOMMENDATIONS: Further evaluation may be obtained with MR imaging if clinically indicated. [facility] CONSOLIDATEDEXAMINATION: CT OF THE LUMBAR SPINE WITHOUT CONTRAST 04/12/2023 TECHNIQUE: CT of the lumbar spine was performed without the administration of intravenous contrast. Multiplanar reformatted images are provided for review. Adjustment of mA and/or kV according to patient size was utilized. Automated exposure control, iterative reconstruction, and/or weight based adjustment of the mA/kV was utilized to reduce the radiation dose to as low as reasonably achievable. COMPARISON: None HISTORY: ORDERING SYSTEM PROVIDED HISTORY: left low back pain TECHNOLOGIST PROVIDED HISTORY: left low back pain Decision Support Exception - unselect if not a suspected or confirmed emergency medical condition->Emergency Medical Condition (MA) FINDINGS: BONES/ALIGNMENT: There is normal alignment of the spine. The vertebral body heights are maintained. No osseous destructive lesion is seen. DEGENERATIVE CHANGES: Degenerative disc disease noted at L2-3, L3-4 and L5-S1with mild loss of height . The spinal canal appears to be patent. There are posterior marginal osteophytes with associated broad-based disc bulges at these levels with associated facet hypertrophy and ligamentous hypertrophy. SOFT TISSUES/RETROPERITONEUM: The paraspinal soft tissue show no gross abnormalities. Nonobstructing 9 mm right renal stone. No paraspinal mass is seen. Vascular calcifications are seen compatible with atherosclerotic disease. MHPN Jeferson Sandoval MD - 04/12/2023 EXAMINATION: CT OF THE LUMBAR SPINE WITHOUT CONTRAST 04/12/2023 TECHNIQUE: CT of the lumbar spine was performed without the administration of intravenous contrast. Multiplanar reformatted images are provided for review. Adjustment of mA and/or kV according to patient size was utilized. Automated exposure control, iterative reconstruction, and/or weight based adjustment of the mA/kV was utilized to reduce the radiation dose to as low as reasonably achievable. COMPARISON: None HISTORY: ORDERING SYSTEM PROVIDED HISTORY: left low back pain TECHNOLOGIST PROVIDED HISTORY: left low back pain Decision Support Exception - unselect if not a suspected or confirmed emergency medical condition->Emergency Medical Condition (MA) FINDINGS: BONES/ALIGNMENT: There is normal alignment of the spine. The vertebral body heights are maintained. No osseous destructive lesion is seen. DEGENERATIVE CHANGES: Degenerative disc disease noted at L2-3, L3-4 and L5-S1with mild loss of height . The spinal canal appears to be patent. There are posterior marginal osteophytes with associated broad-based disc bulges at these levels with associated facet hypertrophy and ligamentous hypertrophy. SOFT TISSUES/RETROPERITONEUM: The paraspinal soft tissue show no gross abnormalities. Nonobstructing 9 mm right renal stone. No paraspinal mass is seen. Vascular calcifications are seen compatible with atherosclerotic disease. IMPRESSION: No acute bony abnormalities are noted. Multilevel lumbar facet arthropathy and degenerative disc disease as described above. Nonobstructing right renal stone RECOMMENDATIONS: Further evaluation may be obtained with MR imaging if clinically indicated. [facility] [employer] TechnologyRadiology Study observation (narrative)[facility] Natcore TechnologyUT Lumbar spine WO contrastOrdered By: Jeferson Baez on [id number] [employer] Work Phone: cbc with Auto Differentialon [id number] (Bld) [#/Vol]0.03 10*3/uLBON [employer] [facility] CENTERBasophils/100 WBC (Bld)0 %0 - 2 %TPACKEosinophils (Bld) [#/Vol]0.18 10*3/uLBON [employer] [facility] CENTEREosinophils/100 WBC (Bld)2 %1 - 4 %[facility] CENTERErythrocyte distribution width (RBC) [Ratio]13.3 %11.8 - 14.4 %[facility] Hematocrit (Bld) [Volume fraction]42.1 %36.3 - 47.1 %[facility] Hemoglobin (Bld) [Mass/Vol]13.5 g/dL11.9 - 15.1 g/dLBON [facility] Immature granulocytes (Bld) [#/Vol]0.05 10*3/uLBON [facility] HOSPITALImmature granulocytes/100 WBC (Bld)1 %Ludq1KKS [facility] HOSPITALInterpretation and review of laboratory resultsAbnormalBON [facility] CHARLES HOSPITALLymphocytes/100 WBC (Bld)23 %Low24 - 43 %[facility] CENTERLymphocytes/100 WBC (Bld)2.15 %[facility]OSPITALH (RBC) [Entitic mass]28.2 pg25.2 - 33.5 pgBON [facility] CENTERHC (RBC) [Mass/Vol]32.1 g/dL28.4 - 34.8 g/dLBON [facility] CHAR[facility] HOSPITALMCV (RBC) [Entitic vol]88.1 fL82.6 - 102.9 fLRIVERSIDE BEHAVIORAL HEALTH CENTER Monocytes/100 WBC (Bld)6 %3 - 12 %[facility] CENTERMonocytes/100 WBC (Bld)0.55 %[facility] CENTERNeutrophils/100 WBC (Bld)68 %High36 - 65 %[facility] CENTERNucleated RBC/100 WBC (Bld) [Ratio]0.0 %0.0 per 100 WBCRIVERSIDE BEHAVIORAL HEALTH CENTERPlatelet mean volume (Bld) [Entitic vol]9.2 fL8.1 - 13.5 fL [facility]ALTH CENTERPlatelets (Bld) [#/Vol]243 10*3/uLBON [facility] CHARLES HOSPITALRBC (Bld) [#/Vol]4.78 10*6/uL3.95 - 5.11 m/uLBON [facility] Segmented neutrophils/100 WBC (Bld)6.56 %[facility] CENTERWBC other (Bld) [#/Vol]9.5BON ST. [facility]ALTHCARE CENTERCEAon 10-27-2022 Carcinoembryonic Ag [Mass/Vol]4.3 ng/mLHighNINF - 3.9 ng/mLCritical access hospitalment on above:The Andres ECLIA assay is used. Results obtained with different assay methods cannot be used interchangeably. Interpretation and review of laboratory resultsAbnormalBON [facility] HOSPITALComprehensive Metabolic Panelon [id number] [Mass/Vol]4.3 g/dL3.5 - 5.2 g/dLBON [facility] HOSPITALAlbumin/Globulin [Mass ratio]1.3 {ratio}1.0 - 2.5BON [facility] HOSPITALALP [Catalytic activity/Vol] 138 U/LHigh35 - 104 U/LBON [facility] HOSPITALALT [Catalytic activity/Vol]28 U/L5 - 33 U/LBON [facility] HOSPITALAnion gap [Moles/Vol]10 mmol/L9 - 17 mmol/L [facility] CENTERAST [Catalytic activity/Vol]24 U/LNINF - 32 U/LBON [facility] HOSPITALBilirubin [Mass/Vol]1.0 mg/dL0.3 - 1.2 mg/dLBON [facility] HOSPITALCalcium [Mass/Vol]9.7 mg/dL8.6 - 10.4 mg/dLBON [facility] Chloride [Moles/Vol]103 mmol/L98 - 107 mmol/LBON [facility] HOSPITALCO2 [Moles/Vol]27 mmol/L20 - 31 mmol/LBON [facility] HOS[facility]ITALCreatinine [Mass/Vol] 0.8 mg/dL0.5 - 0.9 mg/dLBON [facility] HOSPITALGFR/1.73 sq M.predicted MDRD (S/P/Bld) [Vol rate/Area]- PINFBON [facility] on above: These results are not intended for use in patients <18 years of age. eGFR results are calculated without a race factor using the 2020 CKD-EPI equation. Careful clinical correlation is recommended, particularly when comparing to results calculated using previous equations. The CKD-EPI equation is less accurate in patients with extremes of muscle mass, extra-renal metabolism of creatine, excessive creatine ingestion, or following therapy that affects renal tubular secretion. Glucose [Mass/Vol]111 mg/aBAzzh54 - 99 mg/dLBON [facility] LOS ANGELESCoinify Interpretation and review of laboratory resultsAbnormalBON [facility] Potassium [Moles/Vol]4.4 mmol/L3.7 - 5.3 mmol/LBON [facility] HOS[facility]ITALProtein [Mass/Vol]7.7 g/dL6.4 - 8.3 g/dLBON [facility] HOSPITALSodium [Moles/Vol]140 mmol/L135 - 144 mmol/LBON [facility] HOSPITALUrea nitrogen [Mass/Vol]24 mg/dL High8 - 23 mg/dLBON [facility] Risk IdentUrea nitrogen/Creatinine [Mass ratio]30 mg/mgHigh9 - 20BON [facility] HOSPITALBON [facility]S Radiation Monitoring Devices [facility] CENTERCT CHEST ABDOMEN PELVIS W CONTRAST Additional Contrast? Oralon [id number]: No evidence for metastatic involvement. Right thyroid 2 cm rim calcified nodule with recommendations for ultrasound thyroid. Abdomen and pelvis: Stable hepatic cystic lesions without progression. Previous noted area of concern in the ileocecal valve region associated with bowel is no longer clearly evident and no new mass lesion with intramural fat deposition remaining similar in the a cecal valve and ascending colon segments without evidence for recurrent or metastatic disease. RECOMMENDATIONS: 2 cm incidental right thyroid nodule. Recommend thyroid US. Reference: J Am Stuart Radiol. 2014;12(2): 143-50 [facility] RIS CONSOLIDATEDEXAMINATION: CT OF THE CHEST, ABDOMEN, AND PELVIS WITH CONTRAST 07/16/2022 10:16 am TECHNIQUE: CT of the chest, abdomen and pelvis was performed with the administration of intravenous contrast. Multiplanar reformatted images are provided for review. Automated exposure control, iterative reconstruction, and/or weight based adjustment of the mA/kV was utilized to reduce the radiation dose to as low as reasonably achievable. COMPARISON: CT abdomen and pelvis 07/02/2021, CT abdomen pelvis 10/25/2019, CT abdomen pelvis 07/19/2019 HISTORY: ORDERING SYSTEM PROVIDED HISTORY: Malignant neoplasm of sigmoid colon (HCC) TECHNOLOGIST PROVIDED HISTORY: STAT Creatinine as needed:->Yes colon cancer, rising CEA, restage FINDINGS: Chest: Mediastinum: Thyroid is mildly heterogeneous in attenuation with areas of calcification in the right 2 cm rim calcified low-attenuation thyroid nodule. No bulky mediastinal adenopathy. Central airways are patent. Esophagus is normal course and caliber to the distal there is a small hiatal hernia.. Patent nonaneurysmal thoracic aorta. Cardiac size within normal limits without pericardial effusion. Lungs/pleura: Lungs are clear without focal opacification or consolidation. No dominant nodule or mass lesion. Calcified granulomata in the right lung. No pleural effusion or pleural process. Soft Tissues/Bones: No acute osseous or soft tissue findings. No aggressive osseous lesion. Abdomen/Pelvis: Organs: Liver demonstrates low-attenuation areas throughout the liver each of which is unchanged from prior comparison 07/02/2021. Diffuse low attenuation throughout the liver of hepatic steatosis. Gallbladder unremarkable. Pancreas and spleen unremarkable. Adrenals without nodule. Kidneys without suspicious renal lesion and no hydronephrosis. Nonobstructing right nephrolithiasis with right intrarenal stones similar configuration to prior along with renal cortical scarring. GI/Bowel: No evidence for mechanical obstructive process. Small bowel nondilated. At the ileocecal valve region and proximal ascending colon intramural fat deposition as seen on prior. Previous noted area of questionable enhancement near the ileocecal valve is no longer clearly evident. Pelvis: No suspicious pelvic lesion or bulky pelvic adenopathy/free fluid. Peritoneum/Retroperitoneum: Patent nonaneurysmal abdominal aorta. No bulky retroperitoneal adenopathy. Bones/Soft Tissues: No acute osseous or soft tissue findings. MHPN Jairon Mistry, DO - 07/16/2022 EXAMINATION: CT OF THE CHEST, ABDOMEN, AND PELVIS WITH CONTRAST 07/16/2022 10:16 am TECHNIQUE: CT of the chest, abdomen and pelvis was performed with the administration of intravenous contrast. Multiplanar reformatted images are provided for review. Automated exposure control, iterative reconstruction, and/or weight based adjustment of the mA/kV was utilized to reduce the radiation dose to as low as reasonably achievable. COMPARISON: CT abdomen and pelvis 07/02/2021, CT abdomen pelvis 10/25/2019, CT abdomen pelvis 07/19/2019 HISTORY: ORDERING SYSTEM PROVIDED HISTORY: Malignant neoplasm of sigmoid colon (HCC) TECHNOLOGIST PROVIDED HISTORY: STAT Creatinine as needed:->Yes colon cancer, rising CEA, restage FINDINGS: Chest: Mediastinum: Thyroid is mildly heterogeneous in attenuation with areas of calcification in the right 2 cm rim calcified low-attenuation thyroid nodule. No bulky mediastinal adenopathy. Central airways are patent. Esophagus is normal course and caliber to the distal there is a small hiatal hernia.. Patent nonaneurysmal thoracic aorta. Cardiac size within normal limits without pericardial effusion. Lungs/pleura: Lungs are clear without focal opacification or consolidation. No dominant nodule or mass lesion. Calcified granulomata in the right lung. No pleural effusion or pleural process. Soft Tissues/Bones: No acute osseous or soft tissue findings. No aggressive osseous lesion. Abdomen/Pelvis: Organs: Liver demonstrates low-attenuation areas throughout the liver each of which is unchanged from prior comparison 07/02/2021. Diffuse low attenuation throughout the liver of hepatic steatosis. Gallbladder unremarkable. Pancreas and spleen unremarkable. Adrenals without nodule. Kidneys without suspicious renal lesion and no hydronephrosis. Nonobstructing right nephrolithiasis with right intrarenal stones similar configuration to prior along with renal cortical scarring. GI/Bowel: No evidence for mechanical obstructive process. Small bowel nondilated. At the ileocecal valve region and proximal ascending colon intramural fat deposition as seen on prior. Previous noted area of questionable enhancement near the ileocecal valve is no longer clearly evident. Pelvis: No suspicious pelvic lesion or bulky pelvic adenopathy/free fluid. Peritoneum/Retroperitoneum: Patent nonaneurysmal abdominal aorta. No bulky retroperitoneal adenopathy. Bones/Soft Tissues: No acute osseous or soft tissue findings. IMPRESSION: Chest: No evidence for metastatic involvement. Right thyroid 2 cm rim calcified nodule with recommendations for ultrasound thyroid. Abdomen and pelvis: Stable hepatic cystic lesions without progression. Previous noted area of concern in the ileocecal valve region associated with bowel is no longer clearly evident and no new mass lesion with intramural fat deposition remaining similar in the a cecal valve and ascending colon segments without evidence for recurrent or metastatic disease. RECOMMENDATIONS: 2 cm incidental right thyroid nodule. Recommend thyroid US. Reference: J Am Stuart Radiol. 2015 May;12(2): 143-50 [facility] Phone: radiology Study observation (narrative)[employer] Phone: cT CHEST ABDOMEN PELVIS W CONTRAST Additional Contrast? OralOrdered By: Jairon Marcelino on [id number] Phone: cbc with Auto Differentialon [id number] Eos # 0.29BON [facility] HOSPITALAbsolute Immature Granulocyte0.05BON [facility] HOSPITALAbsolute Lymph #2.57BON SECMEDINA HOSPITALAbsolute [place] #0.44BON [facility] HOSPITALBasophils (Bld) [#/Vol]0.03 10*3/uLBON [facility] Basophils/100 WBC (Bld)0 %0 - 2 %[facility] CENTEREosinophils/100 WBC (Bld)4 %1 - 4 %[facility] HEALTH CENTERHematocrit (Bld) [Volume fraction]41.4 % 36.3 - 47.1 %[facility] HEALTH CENTERHemoglobin (Bld) [Mass/Vol]13.6 g/dL11.9 - 15.1 g/dLBON [facility] HOSPITALImmature granulocytes/100 WBC (Bld)1 %Kpss7LTV [facility] HOSPITALInterpretation and review of laboratory resultsAbnormalBON [facility] CHARLES HOSPITALLymphocytes/100 WBC (Bld)33 %24 - 43 %[facility] HOSPITALH (RBC) [Entitic mass]28.8 pg25.2 - 33.5 pgBON [facility] CENTERHC (RBC) [Mass/Vol]32.9 g/dL28.4 - 34.8 g/dLBON [facility] MEDICAL CENTERV (RBC) [Entitic vol]87.5 fL82.6 - 102.9 fLRIVERSIDE BEHAVIORAL HEALTH CENTERMonocytes/100 WBC (Bld)6 %3 - 12 %[facility] HEALTH CENTERNRBC Automated0.00.0 per [address] [facility] HOSPITALPlatelet distribution width (Bld) [Ratio]13.2 %11.8 - 14.4 % BON [facility] HOSPITALPlatelet mean volume (Bld) [Entitic vol]9.7 fL8.1 - 13.5 fLBON [facility] HEALTHPlatelets (Bld) [#/Vol]241 10*3/uLBON [facility]ASSUMPT[facility] HEALTHRBC (Bld) [#/Vol]4.73 10*6/uL3.95 - 5.11 m/uLRIVERSIDE BEHAVIORAL HEALTH CENTER Segmented neutrophils/100 WBC (Bld)56 %36 - 65 %BON [facility] HOSPITALSegs Absolute4.35BON [facility] HOSPITALWBC (Bld) [#/Vol]7.7 10*3/uLBON [facility]OS[facility]ITALBON [facility] HOS[facility]ITALComprehensive Metabolic Panelon 06-18-2022 Albumin [Mass/Vol]4.2 g/dL3.5 - 5.2 g/dLBON [facility] HOSPITALAlbumin/Globulin [Mass ratio]1.4 {ratio}1.0 - 2.5BON [facility] HOSPITALALP [Catalytic activity/Vol]147 U/LHigh35 - 104 U/LBON [facility]ITALALT [Catalytic activity/Vol]39 U/LHigh5 - 33 U/LBON [facility] HOS[facility]ITALAnion gap [Moles/Vol]10 mmol/L9 - 17 mmol/LBON [facility] HOS[facility]ITALAST [Catalytic activity/Vol]31 U/L NINF - 32 U/LBON [facility] HOSPITALBilirubin [Mass/Vol]1.0 mg/dL0.3 - 1.2 mg/dLBON [facility] HOSPITALCalcium [Mass/Vol]9.6 mg/dL8.6 - 10.4 mg/dLBON [facility] HOSPITALChloride [Moles/Vol]108 mmol/LHigh98 - 107 mmol/LBON [facility] HOSPITALCO2 [Moles/Vol]24 mmol/L20 - 31 mmol/LBON [facility] Creatinine [Mass/Vol]0.85 mg/dL0.50 - 0.90 mg/dLBON [facility] HOSPITALGFR/1.73 sq M.predicted MDRD (S/P/Bld) [Vol rate/Area]- PINFBON [facility] Comment on above: These results are not intended for use in patients <18 years of age. eGFR results are calculated without a race factor using the 2020 CKD-EPI equation. Careful clinical correlation is recommended, particularly when comparing to results calculated using previous equations. The CKD-EPI equation is less accurate in patients with extremes of muscle mass, extra-renal metabolism of creatine, excessive creatine ingestion, or following therapy that affects renal tubular secretion. Glucose [Mass/Vol]147 mg/kSTsml27 - 99 mg/dLBON [facility] HOSPITALHedgeye Risk Management Interpretation and review of laboratory resultsAbnormalBON [facility]S AloricaUNIVERSITY HOSPITALS [facility] Potassium [Moles/Vol]3.7 mmol/L3.7 - 5.3 mmol/LBON [facility] Radiation Monitoring Devices [facility] CENTERProtein [Mass/Vol]7.3 g/dL6.4 - 8.3 g/dLBON [facility] Radiation Monitoring Devices [facility] CENTERSodium [Moles/Vol]142 mmol/L135 - 144 mmol/LBON [facility] GeoPageUrea nitrogen [Mass/Vol]22 mg/dL8 - 23 mg/dLBON [facility] [place] Risk IdentUrea nitrogen/Creatinine (Bld) [Mass ratio]26 High9 - 20BON [facility] HOSPITALBON W[facility]ENBUR[facility] REGIONAL HOSPITALHear It First [facility] CENTERMG MAMM SCREEN 3D AQUILES CADon [id number] MAMM SCREEN 3D AQUILES CADPatient: JACKY GONZALEZ Exam Date: 03/04/2022 : 1955 Gender:F Ordering : DR GILMA HER Admission #: [id number] Family : Order #: [id number] CLICK HERE TO VIEW EXAM RADIOLOGY REPORT PROCEDURE: MAMMOGRAM SCREENING 3D BILATERAL CAD COMPARISON: MG MAMM AQUILES SCRN W CAD DIG, 10/06/2012. MG MAMM SCREEN AQUILES W CAD, 01/19/2018. INDICATIONS: Screening mammography Calculator Name NCI Breast Cancer Risk Assessment Tool 5 Year Breast Cancer Risk 1.30% Lifetime Breast Cancer Risk 4.80% Personal Breast Cancer No Personal Ovarian Cancer No Treatments resection and chemotherapy Family Cancers Sister with pancreas cancer at age 58; Father with postate cancer at age 74. LOCATION: [facility] BREAST COMPOSITION: Heterogeneously dense,which may obscure small masses. FINDINGS: DIAGNOSTIC CATEGORY 1--NEGATIVE. NO CHANGE FROM COMPARISON ASSESSMENT. Scattered benign-appearing calcifications are present. Scattered benign-appearing lymph nodes are present. RIGHT BREAST: No significant suspicious finding. LEFT BREAST: No significant suspicious finding. RECOMMENDATIONS: ROUTINE MAMMOGRAM AND CLINICAL EVALUATION IN 12 MONTHS. PLEASE NOTE: A NORMAL MAMMOGRAM DOES NOT EXCLUDE THE POSSIBILITY OF BREAST CANCER. A CLINICALLY SUSPICIOUS PALPABLE LUMP SHOULD BE BIOPSIED. 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 RESULT: Orbits: Ocular globes: Normal morphology. Postcontrast axial image 20, asymmetric enhancement of the right optic disc. Optic nerves: No MRI evidence of optic neuritis or optic nerve atrophy. Symmetrical perioptic fluid. Ocular muscles: Normal signal intensity and morphology. Orbital fat: No intraconal or extraconal mass lesion. Lacrimal glands: Unremarkable. Optic chiasm complex/suprasellar cistern/cavernous sinus: Unremarkable. Optic radiations/occipital lobes: Unremarkable. Acute Change: There is no evidence of restricted diffusion to suggest an acute infarct. Hemorrhage: No evidence of prior parenchymal hemorrhage on the gradient echo images. Mass Lesion/ Mass Effect: No evidence of an intracranial mass or extra-axial fluid collection. No abnormal parenchymal or leptomeningeal enhancement is noted following contrast administration. No significant mass effect. Chronic Change: Moderate degree of supratentorial and midbrain chronic microvascular ischemic changes. Parenchyma: Mild parenchymal volume loss. Ventricles: Normal caliber and morphology. Skull Base: Hypothalamic and pituitary region are grossly normal. Craniocervical junction is normal. No significant marrow replacement process. Vasculature: Major intracranial arterial structures, and dural venous sinuses show typical flow void, suggesting patency by spin echo criteria. Other: The visualized paranasal sinuses and mastoid air cells are clear. IMPRESSION: Postcontrast axial image 20, asymmetric enhancement of the right optic disc as well as mild increased diffusion signal. Diagnostic considerations include acute inflammation /edema. No MRI evidence of optic neuritis. MRI of the optic nerves unremarkable. Moderate degree of supratentorial and midbrain chronic microvascular ischemic changes. Emanations Analysis Technician: CHAITANYA Transcribe Date/Time: Jan 07 2022 1:40P Dictated by : RAMON BAPTISTE MD This examination was interpreted and the report reviewed and electronically signed by: RAMON BAPTISTE MD on Jan 07 2022 2:11PM EST [id number] Spal[facility]- REACTIVE PROTEIN (CRP)on [id number] [Mass/Vol]0.6 mg/dL<0.9 mg/dLSelect Medical Specialty [facility] W Auto Differential panel (Bld)on [id number] Immature Gran0.05 k/uL <0.10 k/uLOhiohealth Marion General HospitalBasophils (Bld) [#/Vol]0.04 10*3/uL<0.11 k/uLOhiohealth Marion General HospitalBasophils/100 WBC (Bld)0.5 %[facility] HospitalDifferential cell count method Nom (Bld)AutoCleveland ClinicEosinophils (Bld) [#/Vol]0.03 10*3/uL<0.46 k/uLOhiohealth Marion General HospitalEosinophils/100 WBC (Bld)0.4 %[facility] HospitalErythrocyte distribution width (RBC) [Ratio]13.6 %11.5 - 15.0 %[facility] HospitalHematocrit (Bld) [Volume fraction]43.2 %36.0 - 46.0 %[facility] HospitalHemoglobin (Bld) [Mass/Vol]14.2 g/dL11.5 - 15.5 g/dLOhiohealth Marion General HospitalImmature Gran %0.7 %[facility] HospitalLymphocytes (Bld) [#/Vol]1.76 10*3/uL1.00 - 4.00 k/uLOhiohealth Marion General Hospital Lymphocytes/100 WBC (Bld)23.8 %[facility] HospitalH (RBC) [Entitic mass]28.7 pg 26.0 - 34.0 pgCleveland Mercy HospitalHC (RBC) [Mass/Vol]32.9 g/dL30.5 - 36.0 g/dL Glenbeigh HospitalV (RBC) [Entitic vol]87.4 fL80.0 - 100.0 fLClevelWayne HealthCare Main Campus Monocytes (Bld) [#/Vol]0.34 10*3/uL<0.87 k/uLOhiohealth Marion General HospitalMonocytes/100 WBC (Bld)4.6 %[facility] HospitalNeutrophils (Bld) [#/Vol]5.16 10*3/uL1.45 - 7.50 k/uL [facility] HospitalNeutrophils/100 WBC (Bld)70.0 %[facility] HospitalNucleated RBC (Bld) [#/Vol]<0.01 k/uLOhiohealth Marion General HospitalNucleated RBC/100 WBC (Bld) [Ratio]0.0 /100 WBCOhiohealth Marion General HospitalPlatelet mean volume (Bld) [Entitic vol]9.6 fL9.0 - 12.7 fLCmercy memorial hospital ClinicPlatelets (Bld) [#/Vol]263 10*3/uL150 - 400 k/uLOhiohealth Marion General HospitalRBC (Bld) [#/Vol]4.94 10*6/uL3.90 - 5.20 m/uLOhiohealth Marion General HospitalWBC (Bld) [#/Vol]7.38 10*3/uL3.70 - 11.00 k/uLOhiohealth Marion General HospitalESR Westergren method (Bld) [Velocity]on [id number] (Bld) [Velocity]17 mm/h0 - 20 mm/hrOhiohealth Marion General Hospital CBC Auto Differentialon [id number] Eos #0.19MerMary Bridge Children's HospitalAbsolute Immature Granulocyte0.03C[facility] CenterAbsolute Lymph #3.18MerMary Bridge Children's HospitalAbsolute [place] #0.57MerMary Bridge Children's HospitalBasophils (Bld) [#/Vol]0.04 10*3/uLCincinnati Va Medical Center Basophils/100 WBC (Bld)1 %0 - 2 %[facility] CenterEosinophils/100 WBC (Bld)3 %1 - 4 % [facility] CenterHematocrit (Bld) [Volume fraction]42.5 %36.3 - 47.1 %[facility] Hemoglobin.gastrointestinal spec 1 Ql (Stl)13.6 g/dL11.9 - 15.1 g/dLWood County Hospital StyleHop Immature granulocytes/100 WBC (Bld)0 %0C[facility] Medical CenterLymphocytes/100 WBC (Bld)41 % 24 - 43 %[facility] HospitalH (RBC) [Entitic mass]28.3 pg25.2 - 33.5 pgMercy Health MCHC (RBC) [Mass/Vol]32.0 g/dL28.4 - 34.8 g/dLCincinnati Va Medical CenterMCV (RBC) [Entitic vol]88.4 fL82.6 - 102.9 fLCincinnati Va Medical CenterMonocytes/100 WBC (Bld)7 %3 - 12 %[facility] CenterNRBC Automated0.00.0 per 100 WBCCincinnati Va Medical CenterPlatelet distribution width (Bld) [Ratio]13.2 %11.8 - 14.4 %[facility] Medical CenterPlatelet mean volume (Bld) [Entitic vol]9.2 fL8.1 - 13.5 fLCincinnati Va Medical CenterPlatelets (Bld) [#/Vol]239 10*3/uLCincinnati Va Medical CenterRBC (Bld) [#/Vol]4.81 10*6/uL3.95 - 5.11 m/uLCincinnati Va Medical CenterSegmented neutrophils/100 WBC (Bld)48 %36 - 65 %[facility] CenterSegs Absolute3.73[facility] WBC (Bld) [#/Vol]7.7 10*3/uLFort Hamilton Hospitalcy HealthCEAon [id number] ng/mL <3.9C[facility] Va Medical CenterComment on above:The Andres ECLIA assay is used. Results obtained with different assay methods cannot be used interchangeably. [facility] ABDOMEN PELVIS W IV CONTRAST Additional Contrast? Oralon . Multiple scattered hepatic hypodensities compatible with cysts. Some too small to characterize. Stable. 2. The appears to be 1.9 cm homogeneous hyperdense probably hyperenhancing area just proximal to the ileocecal junction the terminal ileum. Uncertain if true lesion or not. Similar finding with slightly different configuration noted on the prior. Consider CT or MR enterography to exclude a true lesion. 3. No evidence for metastatic disease. The findings were sent to the Radiology Results Communication Center at 4:00 pm on 07/02/2021to be communicated to a licensed caregiver. [facility] RIS CONSOLIDATEDEXAMINATION: CT OF THE ABDOMEN AND PELVIS WITH CONTRAST 07/02/2021 10:12 am TECHNIQUE: CT of the abdomen and pelvis was performed with the administration of intravenous contrast. Multiplanar reformatted images are provided for review. Dose modulation, iterative reconstruction, and/or weight based adjustment of the mA/kV was utilized to reduce the radiation dose to as low as reasonably achievable. COMPARISON: 10/25/2019 HISTORY: ORDERING SYSTEM PROVIDED HISTORY: Malignant neoplasm of sigmoid colon (HCC) TECHNOLOGIST PROVIDED HISTORY: Colon cancer, slight rising CEA FINDINGS: Lower Chest: The visualized heart and lungs show no acute abnormalities. Organs: Scattered circumscribed hepatic hypodensities with CT densities most compatible with cysts largest 18 mm in the left lobe. Several are too small to characterize. Splenic granulomatous calcifications. Pancreas, adrenal glands and gallbladder unremarkable. Symmetric enhancement of kidneys. GI/Bowel: Small sliding hiatal hernia otherwise stomach unremarkable. Small bowel shows no evidence for obstruction. About 3 cm from the ileocecal junction there is focal area of for somewhat nodular asymmetric homogeneous enhancement in the terminal ileum measuring 1.9 x 1.7 x 1.9 cm. There is fecalization of the immediately upstream terminal ileum contents along with borderline dilatation. Finding appear present on prior but different in configuration. Inconclusive whether true lesion. Consider CT or MR enterography to further evaluate. The colon shows no significant abnormalities. No evidence for appendicitis. Pelvis: Uterus and urinary bladder unremarkable. Peritoneum/Retroperitoneum: No free intraperitoneal fluid. No significant lymphadenopathy. Bones/Soft Tissues: No acute abnormality of the bones. The superficial soft tissues show no significant abnormalities. [facility] Yuriy Ross MD - 07/02/2021 EXAMINATION: CT OF THE ABDOMEN AND PELVIS WITH CONTRAST 07/02/2021 10:12 am TECHNIQUE: CT of the abdomen and pelvis was performed with the administration of intravenous contrast. Multiplanar reformatted images are provided for review. Dose modulation, iterative reconstruction, and/or weight based adjustment of the mA/kV was utilized to reduce the radiation dose to as low as reasonably achievable. COMPARISON: 10/25/2019 HISTORY: ORDERING SYSTEM PROVIDED HISTORY: Malignant neoplasm of sigmoid colon (HCC) TECHNOLOGIST PROVIDED HISTORY: Colon cancer, slight rising CEA FINDINGS: Lower Chest: The visualized heart and lungs show no acute abnormalities. Organs: Scattered circumscribed hepatic hypodensities with CT densities most compatible with cysts largest 18 mm in the left lobe. Several are too small to characterize. Splenic granulomatous calcifications. Pancreas, adrenal glands and gallbladder unremarkable. Symmetric enhancement of kidneys. GI/Bowel: Small sliding hiatal hernia otherwise stomach unremarkable. Small bowel shows no evidence for obstruction. About 3 cm from the ileocecal junction there is focal area of for somewhat nodular asymmetric homogeneous enhancement in the terminal ileum measuring 1.9 x 1.7 x 1.9 cm. There is fecalization of the immediately upstream terminal ileum contents along with borderline dilatation. Finding appear present on prior but different in configuration. Inconclusive whether true lesion. Consider CT or MR enterography to further evaluate. The colon shows no significant abnormalities. No evidence for appendicitis. Pelvis: Uterus and urinary bladder unremarkable. Peritoneum/Retroperitoneum: No free intraperitoneal fluid. No significant lymphadenopathy. Bones/Soft Tissues: No acute abnormality of the bones. The superficial soft tissues show no significant abnormalities. IMPRESSION: 1. Multiple scattered hepatic hypodensities compatible with cysts. Some too small to characterize. Stable. 2. The appears to be 1.9 cm homogeneous hyperdense probably hyperenhancing area just proximal to the ileocecal junction the terminal ileum. Uncertain if true lesion or not. Similar finding with slightly different configuration noted on the prior. Consider CT or MR enterography to exclude a true lesion. 3. No evidence for metastatic disease. The findings were sent to the Radiology Results Communication Center at 4:00 pm on 07/02/2021to be communicated to a licensed caregiver. [facility] Phone: radiology Study observation (narrative)[facility] Phone: cT ABDOMEN PELVIS W IV CONTRAST Additional Contrast? OralOrdered By: Yuriy Darby on [id number] Health Phone: Comprehensive Metabolic Panelon [id number] [Mass/Vol]4.2 g/dL3.5 - 5.2 g/dLMerMovero, Inc. HealthAlbumin/Globulin [Mass ratio]1.4 {ratio}VirtuixALP (Bld) [Catalytic activity/Vol]132 U/LHigh35 - 104 U/L VirtuixALT [Catalytic activity/Vol]22 U/L5 - 33 U/LMercy HealthAnion gap [Moles/Vol]9 mmol/L9 - 17 mmol/LMercy HealthAST [Catalytic activity/Vol]20 U/L <32Mercy HealthBilirubin [Mass/Vol]0.68 mg/dL0.3 - 1.2 mg/dLMercy HealthCalcium [Mass/Vol]9.4 mg/dL8.6 - 10.4 mg/dLMer HealthChloride [Moles/Vol]102 mmol/L98 - 107 mmol/LMercy HealthCO2 [Moles/Vol]25 mmol/L20 - 31 mmol/LMercy Health Creatinine [Mass/Vol]0.98 mg/dLHigh0.50 - 0.90 mg/dLCincinnati Va Medical CenterFree PSA/Total PSA [Mass fraction]7.3 g/dL6.4 - 8.3 g/dLWood County Hospital HealthGFR >60>60 mL/minMer HealthGFR Non- Iecdtewl49 mL/minLow>60[facility] HealthGlucose [Mass/Vol]119 mg/vYLwwz66 - 99 mg/dLCincinnati Va Medical CenterInterpretation and review of laboratory resultsAbnormalMer HealthPotassium [Moles/Vol]4.0 mmol/L3.7 - 5.3 mmol/LMercy HealthSodium [Moles/Vol]136 mmol/L135 - 144 mmol/LMercy HealthUrea nitrogen (BldV) [Mass/Vol]20 mg/dL8 - 23 mg/dLCincinnati Va Medical CenterUrea nitrogen/Creatinine (Bld) [Mass ratio]20[facility] HospitalLabor[facility] - Chemistry and Chemistry - challengeon [id number]/1.73 sq M.predicted MDRD (S/P/Bld) [Vol rate/Area][facility] Medical CenterComment on above:Average GFR for 60-69 years old: 85 mL/min/1.73sq m Chronic Kidney Disease: <60 mL/min/1.73sq m Kidney failure: <15 mL/min/1.73sq m eGFR calculated using average adult body mass. Additional eGFR calculator available at: http://www.SolFocus.Xpliant/multiple_crcl_2012.htm Stage 1: Some kidney damage normal GFR Stage 2: Mild kidney damage GFR 60-89 Stage 3: Moderate kidney damage GFR 30-59 Stage 4: Severe kidney damage GFR 15-29 Stage 5: Severe kidney damage GFR <15 ESRD - chronic treatment by dialysis or transplant Brain Natriuretic PeptideOrdered By: Afsaneh Tomas on [id number] Interpretation Pro-BNP Reference Range:[employer] Work Phone: comment on above: Rule Out: <300 Elder Zone: Age <50 300-450 Age 50-75 300-900 Age >75 300-1800 Usually represents mild to moderate HF but other cardiopulmonary causes cannot be ruled out. Rule In: Age <50 >450 Age 50-75 >900 Age >75 >1800 Natriuretic peptide B (Bld) [Mass/Vol]50 pg/mL<300C[facility]innati [facility] CenterPaymentOne Phone: comment on above:Pro-BNP results cannot be compared to BNP results.CBC Auto DifferentialOrdered By: Afsaneh Tomas on [id number] Eos #0.05[facility] CenterPaymentOne Phone: absolute Immature Granulocyte0.03[facility] CenterPaymentOne Phone: absolute Lymph #1.82[facility] CenterPaymentOne Phone: absolute [place] #0.27[facility] CenterPaymentOne Phone: basophils (Bld) [#/Vol]0.03 10*3/uLCincinnati Children'S Hospital Medical CenterPaymentOne Phone: basophils/100 WBC (Bld)0 %0 - 2 %[facility] Phone: differential TypeNOT REPORTEDCincinnati Children'S Hospital Medical CenterPaymentOne Phone: eosinophils/100 WBC (Bld)1 %1 - 4 %[facility] Phone: Hematocrit (Bld) [Volume fraction]43.2 %36.3 - 47.1 % [facility] Phone: Hemoglobin.gastrointestinal spec 1 Ql (Stl)14.0 g/dL 11.9 - 15.1 g/dLCincinnati Children'S Hospital Medical CenterPaymentOne Phone: Immature granulocytes/100 WBC (Bld)0 %0[facility] CenterPaymentOne Phone: Interpretation and review of laboratory results AbnormalCincinnati Children'S Hospital Medical CenterPaymentOne Phone: lymphocytes/100 WBC (Bld)27 %24 - 43 %[facility] Phone: MCH (RBC) [Entitic mass]28.5 pg25.2 - 33.5 pgCincinnati Children'S Hospital Medical CenterPaymentOne Phone: [phone] (RBC) [Mass/Vol]32.4 g/dL28.4 - 34.8 g/dLCincinnati Children'S Hospital Medical CenterPaymentOne Phone: [phone] (RBC) [Entitic vol]87.8 fL82.6 - 102.9 fLMetronom Health Phone: [phone]/100 WBC (Bld)4 %3 - 12 %[facility] Phone: NRBC Automated0.00.0 per 100 WBCMetronom Health Phone: [phone] distribution width (Bld) [Ratio]13.2 %11.8 - 14.4 %[facility] Phone: [phone] EstimateNOT REPORTEDMetronom Health Phone: [phone] mean volume (Bld) [Entitic vol]9.6 fL8.1 - 13.5 fLMetronom Health Phone: [phone] (Bld) [#/Vol]242 10*3/[employer] Phone: RBC (Bld) [#/Vol]4.92 10*6/uL3.95 - 5.11 m/[employer] Phone: RBC (Bld) [#/Vol]NOT REPORTEDCincinnati Children'S Hospital Medical CenterPaymentOne Phone: Segmented neutrophils/100 WBC (Bld)68 %High36 - 65 % [facility] Phone: [phone] Absolute4.60[facility] CenterPaymentOne Phone: WBC (Bld) [#/Vol]6.8 10*3/uLMetronom Health Phone: WBC (Bld) [#/Vol]NOT REPORTEDCincinnati Children'S Hospital Medical CenterMedical [employer] Work Phone: [facility] [employer] Work Phone: comprehensive Metabolic Panel w/ Reflex to MGOrdered By: Afsaneh Tomas on [id number] [Mass/Vol]4.2 g/dL3.5 - 5.2 g/dLCincinnati Children'S Hospital Medical CenterMedical [employer] [facility] Work Phone: Tlbumin/Globulin [Mass ratio]1.2 {ratio}[facility] [employer] Work Phone: RLP (Bld) [Catalytic activity/Vol]145 U/LHigh35 - 104 U/LMpremier health miami valley hospital southy [employer] Work Phone: BLT [Catalytic activity/Vol]28 U/L5 - 33 U/LMercy [employer] Work Phone: anion gap [Moles/Vol]15 mmol/L9 - 17 mmol/LMercy [employer] Work Phone: aST [Catalytic activity/Vol]21 U/L<32MerMedical [employer] Work Phone: bilirubin [Mass/Vol]0.88 mg/dL0.3 - 1.2 mg/dLWood County Hospital [employer] Work Phone: calcium [Mass/Vol]9.0 mg/dL8.6 - 10.4 mg/dLWood County Hospital [employer] Work Phone: chloride [Moles/Vol]103 mmol/L98 - 107 mmol/LMercy [employer] Work Phone: RO2 [Moles/Vol]21 mmol/L20 - 31 mmol/LMercy [employer] Work Phone: creatinine [Mass/Vol]0.82 mg/dL0.50 - 0.90 mg/dLCincinnati Children'S Hospital Medical CenterPaymentOne Phone: Free PSA/Total PSA [Mass fraction]7.6 g/dL6.4 - 8.3 g/dLCincinnati Children'S Hospital Medical CenterMedical [employer] Work Phone: GFR >60>60 mL/minCincinnati Children'S Hospital Medical CenterPaymentOne Phone: GFR Non->60>60 mL/minCincinnati Children'S Hospital Medical CenterPaymentOne Phone: Glucose [Mass/Vol]139 mg/bIXtya99 - 99 mg/dLCincinnati Children'S Hospital Medical CenterPaymentOne Phone: Interpretation and review of laboratory results AbnormalCincinnati Children'S Hospital Medical CenterPaymentOne Phone: potassium [Moles/Vol]3.7 mmol/L3.7 - 5.3 mmol/LMgenesis hospital [employer] Phone: sodium [Moles/Vol]139 mmol/L135 - 144 mmol/LMpremier health miami valley hospital southy [employer] Phone: Urea nitrogen (BldV) [Mass/Vol]15 mg/dL8 - 23 mg/dL [facility] HospitalN[facility] Phone: Urea nitrogen/Creatinine (Bld) [Mass ratio]18[facility] CenterPaymentOne Phone: laboratory - Chemistry and Chemistry - challenge Ordered By: Afsaneh Tomas on [id number]/1.73 sq M.predicted MDRD (S/P/Bld) [Vol rate/Area][facility] Phone: comment on above:Average GFR for 60-69 years old: 85 mL/min/1.73sq m Chronic Kidney Disease: <60 mL/min/1.73sq m Kidney failure: <15 mL/min/1.73sq m eGFR calculated using average adult body mass. Additional eGFR calculator available at: http://www.SolFocus.Xpliant/multiple_crcl_2012.htm Stage 1: Some kidney damage normal GFR Stage 2: Mild kidney damage GFR 60-89 Stage 3: Moderate kidney damage GFR 30-59 Stage 4: Severe kidney damage GFR 15-29 Stage 5: Severe kidney damage GFR <15 ESRD - chronic treatment by dialysis or transplant Microscopic UrinalysisOrdered By: Afsaneh Tomas on 01-06-2021-[facility] Phone: amorphous, UANOT REPORTEDNoneMercy Health Work Phone: bacteria, UANOT REPORTEDNoneMercy Health Work Phone: casts UANOT REPORTED/LPFMercy Health Work Phone: Frystals, UANOT REPORTEDNone /HPFMercy Health Work Phone: Ppithelial Cells UA0 TO 2[facility] Work Phone: Mucus, UANOT REPORTEDNoneMercy Health Work Phone: Other Observations UANOT REPORTEDNOT REQ.[facility] Work Phone: HBC, UA0 TO 2[facility] Work Phone: Venal Epithelial, UANOT REPORTED0 /HPFMercy Health Work Phone: Trichomonas, UANOT REPORTEDNoneMercy Health Work Phone: WBC, UA0 TO 2[facility] Work Phone: Yeast, UANOT REPORTEDNoneMercy Health Work Phone: [facility] Work Phone: No Panel InformationOrdered By: Afsaneh Tomas on [id number] [facility] Work Phone: TroponinOrdered By: Afsaneh Tomas on [id number] InterpNOT REPORTEDCincinnati Children'S Hospital Medical CenterMedical [facility] Work Phone: Troponin TNOT REPORTED<0.03 ng/mLCincinnati Children'S Hospital Medical CenterMedical [facility] Work Phone: Troponin, High Sensitivity<60 - 14 ng/LMercy [employer] Work Phone: comment on above: High Sensitivity Troponin values cannot be compared with other Troponin methodologies. Patients with high levels of Biotin oral intake (i.e >5mg/day) may have falsely decreased Troponin levels. Samples collected within 8 hours of biotin intake may require additional information for diagnosis. Urinalysis, reflex to microscopicOrdered By: Afsaneh Tomas on [id number] UrineNegativeNEGATIVEWood County Hospital Health Work Phone: color, UAYELLOWYELLOWMer Health Work Phone: Glucose, UrNegativeNEGATIVEWood County Hospital Health Work Phone: Interpretation and review of laboratory results AbnormalWood County Hospital [employer] Work Phone: Ketones Ql (U)NegativeNEGATIVEWood County Hospital Health Work Phone: leukocyte esterase Test strip Ql (U)NegativeNEGATIVE [facility] Work Phone: Nitrite, UrineNegativeNEGATIVEWood County Hospital Health Work Phone: pH, UA6.0Mer [facility] Work Phone: protein, UANegativeNEGATIVEWood County Hospital Health Work Phone: specific [place], UA<1.005LowMer Health Work Phone: Turbidity UACLEARCLEARMer Health Work Phone: Urinalysis CommentsNOT REPORTEDMer Health Work Phone: Urine HgbTRACEAbnormalNEGATIVEWood County Hospital Health Work Phone: Urobilinogen, UrineNormalNormalWood County Hospital Health Work Phone: [facility] Work Phone: XR CHEST (2 VW)Ordered By: Afsaneh Tomas on [id number] basilar linear opacities suggesting subsegmental atelectasis or infectionWood County Hospital [employer] Work Phone: eXAMINATION: TWO XRAY VIEWS OF THE CHEST 01/06/2021 12:18 pm COMPARISON: None. HISTORY: ORDERING SYSTEM PROVIDED HISTORY: chest pressure TECHNOLOGIST PROVIDED HISTORY: chest pressure FINDINGS: Left basilar linear opacities. There is no effusion or pneumothorax. The cardiomediastinal silhouette is without acute process. The osseous structures are without acute process.[facility] Phone: edi, Mhpn Incoming Radiant Results From [employer] - 01/06/2021 12:25 PM EDT EXAMINATION: TWO XRAY VIEWS OF THE CHEST 01/06/2021 12:18 pm COMPARISON: None. HISTORY: ORDERING SYSTEM PROVIDED HISTORY: chest pressure TECHNOLOGIST PROVIDED HISTORY: chest pressure FINDINGS: Left basilar linear opacities. There is no effusion or pneumothorax. The cardiomediastinal silhouette is without acute process. The osseous structures are without acute process. IMPRESSION: Left basilar linear opacities suggesting subsegmental atelectasis or infection [facility] Phone: [facility] Phone: cBC Auto DifferentialOrdered By: Arpita Connolly on [id number] Eos #0.13[facility] CenterPaymentOne Phone: absolute Immature Granulocyte0.03[facility] Phone: absolute Lymph #2.57[facility] CenterPaymentOne Phone: absolute [place] #0.47[facility] Phone: basophils (Bld) [#/Vol]0.03 10*3/uLMet[facility] Health Phone: basophils/100 WBC (Bld)0 %0 - 2 %[facility] Phone: differential TypeNOT REPORTEDCincinnati Children'S Hospital Medical CenterPaymentOne Phone: eosinophils/100 WBC (Bld)2 %1 - 4 %[facility] Phone: Hematocrit (Bld) [Volume fraction]40.8 %36.3 - 47.1 % [facility] Phone: Hemoglobin.gastrointestinal spec 1 Ql (Stl)13.1 g/dL 11.9 - 15.1 g/dLMetronom Health Phone: Immature granulocytes/100 WBC (Bld)0 %0[facility] CenterPaymentOne Phone: [phone]/100 WBC (Bld)35 %24 - 43 %[facility] Phone: MCH (RBC) [Entitic mass]28.7 pg25.2 - 33.5 pgCincinnati Children'S Hospital Medical CenterMedical [facility] Work Phone: MCHC (RBC) [Mass/Vol]32.1 g/dL28.4 - 34.8 g/dLCincinnati Children'S Hospital Medical CenterMedical [employer] [facility] Work Phone: MCV (RBC) [Entitic vol]89.3 fL82.6 - 102.9 fLCincinnati Children'S Hospital Medical CenterPaymentOne Phone: Monocytes/100 WBC (Bld)6 %3 - 12 %[facility] Phone: NRBC Automated0.00.0 per 100 WBCCincinnati Children'S Hospital Medical CenterPaymentOne Phone: Platelet distribution width (Bld) [Ratio]13.4 %11.8 - 14.4 %[facility] Phone: Platelet EstimateNOT REPORTEDCincinnati Children'S Hospital Medical CenterPaymentOne Phone: Platelet mean volume (Bld) [Entitic vol]9.7 fL8.1 - 13.5 fLCincinnati Children'S Hospital Medical CenterPaymentOne Phone: [phone] (Bld) [#/Vol]233 10*3/uLCincinnati Children'S Hospital Medical CenterPaymentOne Phone: RBC (Bld) [#/Vol]4.57 10*6/uL3.95 - 5.11 m/WiziShopCincinnati Children'S Hospital Medical CenterPaymentOne Phone: [phone] (Bld) [#/Vol]NOT REPORTEDCincinnati Children'S Hospital Medical CenterPaymentOne Phone: [phone] neutrophils/100 WBC (Bld)57 %36 - 65 %[facility] Phone: Segs Absolute4.09[facility] CenterPaymentOne Phone: WBC (Bld) [#/Vol]7.3 10*3/uLMer [employer] Work Phone: WBC (Bld) [#/Vol]NOT REPORTEDWood County Hospital [employer] Work Phone: [facility] [employer] Phone: cEAOrdered By: Arpita Connolly on 36-46-1447MIN1.1 ng/mL<3.9[facility] [employer] Phone: comment on above:The Andres ECLIA assay is used. Results obtained with different assay methods cannot be used interchangeably. [facility] HospitalN[facility] Energy[facility] Phone: comprehensive Metabolic PanelOrdered By: Arpita Kahn on [id number] [Mass/Vol]4.3 g/dL3.5 - 5.2 g/dLWood County Hospital [employer] Phone: albumin/Globulin [Mass ratio]1.4 {ratio}[facility] [employer] Phone: aLP (Bld) [Catalytic activity/Vol]135 U/LHigh35 - 104 U/LMercy [employer] Work Phone: aLT [Catalytic activity/Vol]30 U/L5 - 33 U/LMgenesis hospital [employer] Work Phone: anion gap [Moles/Vol]12 mmol/L9 - 17 mmol/LMpremier health miami valley hospital southy [employer] Work Phone: aST [Catalytic activity/Vol]23 U/L<32[facility] [employer] Phone: Xilirubin [Mass/Vol]1.06 mg/dL0.3 - 1.2 mg/dLWood County Hospital [employer] Work Phone: calcium [Mass/Vol]9.3 mg/dL8.6 - 10.4 mg/dLWood County Hospital [employer] Phone: Ohloride [Moles/Vol]102 mmol/L98 - 107 mmol/LMercy Health Work Phone: cO2 [Moles/Vol]24 mmol/L20 - 31 mmol/LMgenesis hospital [employer] Phone: creatinine [Mass/Vol]0.89 mg/dL0.50 - 0.90 mg/dLCincinnati Children'S Hospital Medical CenterPaymentOne Phone: Free PSA/Total PSA [Mass fraction]7.3 g/dL6.4 - 8.3 g/dLWood County Hospital [employer] Phone: GFR >60>60 mL/minWood County Hospital [employer] Phone: GFR Non->60>60 mL/minWood County Hospital [employer] Phone: Glucose [Mass/Vol]114 mg/rCOimj86 - 99 mg/dLWood County Hospital [employer] Phone: Interpretation and review of laboratory results AbnormalWood County Hospital [employer] Phone: potassium [Moles/Vol]4.2 mmol/L3.7 - 5.3 mmol/LMgenesis hospital [employer] Phone: sodium [Moles/Vol]138 mmol/L135 - 144 mmol/LMgenesis hospital [employer] Phone: Urea nitrogen (BldV) [Mass/Vol]21 mg/dL8 - 23 mg/dL [facility] [employer] Phone: Urea nitrogen/Creatinine (Bld) [Mass ratio]24HighCincinnati Children'S Hospital Medical CenterPaymentOne Phone: [facility] CenterPaymentOne Phone: laboratory - Chemistry and Chemistry - challenge Ordered By: Arpita Connolly on 13-77-0617PWJ/1.73 sq M.predicted MDRD (S/P/Bld) [Vol rate/Area][facility] HospitalN[facility] Phone: comment on above:Average GFR for 60-69 years old: 85 mL/min/1.73sq m Chronic Kidney Disease: <60 mL/min/1.73sq m Kidney failure: <15 mL/min/1.73sq m eGFR calculated using average adult body mass. Additional eGFR calculator available at: http://www.[employer]/multiple_crcl_2012.htm Stage 1: Some kidney damage normal GFR Stage 2: Mild kidney damage GFR 60-89 Stage 3: Moderate kidney damage GFR 30-59 Stage 4: Severe kidney damage GFR 15-29 Stage 5: Severe kidney damage GFR <15 ESRD - chronic treatment by dialysis or transplant FerritinOrdered By: Arpita Connolly on [id number] ug/L13 - 150 ug/L [facility] Phone: Iron and TIBCOrdered By: Arpita Connolly on 70-86-9538Nyunhqjfcsekts and review of laboratory resultsAbnormalCincinnati Children'S Hospital Medical CenterPaymentOne Phone: Iron [Mass/Vol]60 ug/dL37 - 145 ug/dLCincinnati Children'S Hospital Medical CenterPaymentOne Phone: Iron Daprpsdzor16 %Low20 - 55 %[facility] Phone: TIBC310 ug/dL250 - 450 ug/dLCincinnati Children'S Hospital Medical CenterPaymentOne Phone: UIBC250 ug/dL112 - 347 ug/dLCincinnati Children'S Hospital Medical CenterPaymentOne Phone: No Panel InformationOrdered By: Arpita Connolly on 20-27-0389Fxnxl Health Work Phone: cBC Auto DifferentialOrdered By: Arpita Connolly on 19-45-1608Mrxjvfmi Eos #0.11[facility] CenterMedical [facility] Work Phone: absolute Immature Granulocyte<0.03[facility] CenterMedical [facility] Work Phone: absolute Lymph #2.97[facility] CenterPaymentOne Phone: absolute [place] #0.47[facility] [employer] Phone: basophils (Bld) [#/Vol]0.03 10*3/uLCincinnati Children'S Hospital Medical CenterPaymentOne Phone: basophils/100 WBC (Bld)0 %0 - 2 %[facility] Phone: differential TypeNOT REPORTEDCincinnati Children'S Hospital Medical CenterPaymentOne Phone: eosinophils/100 WBC (Bld)2 %1 - 4 %[facility] Phone: Hematocrit (Bld) [Volume fraction]39.7 %36.3 - 47.1 % [facility] Phone: Hemoglobin.gastrointestinal spec 1 Ql (Stl)12.8 g/dL 11.9 - 15.1 g/dLCincinnati Children'S Hospital Medical CenterPaymentOne Phone: Immature granulocytes/100 WBC (Bld)0 %0[facility] CenterPaymentOne Phone: lymphocytes/100 WBC (Bld)43 %24 - 43 %[facility] Phone: MCH (RBC) [Entitic mass]28.8 pg25.2 - 33.5 pgCincinnati Children'S Hospital Medical CenterPaymentOne Phone: MCHC (RBC) [Mass/Vol]32.2 g/dL28.4 - 34.8 g/dLCincinnati Children'S Hospital Medical CenterPaymentOne Phone: MCV (RBC) [Entitic vol]89.2 fL82.6 - 102.9 fLCincinnati Children'S Hospital Medical CenterPaymentOne Phone: Monocytes/100 WBC (Bld)7 %3 - 12 %[facility] Phone: NRBC Automated0.00.0 per 100 WBCCincinnati Children'S Hospital Medical CenterPaymentOne Phone: platelet distribution width (Bld) [Ratio]13.7 %11.8 - 14.4 %[facility] Phone: platelet EstimateNOT REPORTEDCincinnati Children'S Hospital Medical CenterPaymentOne Phone: platelet mean volume (Bld) [Entitic vol]9.3 fL8.1 - 13.5 fLMetronom Health Phone: Llatelets (Bld) [#/Vol]246 10*3/uLCincinnati Children'S Hospital Medical CenterPaymentOne Phone: RBC (Bld) [#/Vol]4.45 10*6/uL3.95 - 5.11 m/uLCincinnati Children'S Hospital Medical CenterPaymentOne Phone: RBC (Bld) [#/Vol]NOT REPORTEDCincinnati Children'S Hospital Medical CenterPaymentOne Phone: Xegmented neutrophils/100 WBC (Bld)48 %36 - 65 %[facility] Phone: Xegs Absolute3.34[facility] CenterPaymentOne Phone: WBC (Bld) [#/Vol]6.9 10*3/uLMet[facility] Health Phone: WBC (Bld) [#/Vol]NOT REPORTEDCincinnati Children'S Hospital Medical CenterPaymentOne Phone: [facility] CenterPaymentOne Phone: cEAOrdered By: Arpita Connolly on 17-28-4658KIY9.7 ng/mL<3.9[facility] CenterPaymentOne Phone: comment on above:The Andres ECLIA assay is used. Results obtained with different assay methods cannot be used interchangeably. [facility] Phone: comprehensive Metabolic PanelOrdered By: Arpita Kahn on [id number] [Mass/Vol]4.3 g/dL3.5 - 5.2 g/dLMetronom Health Phone: albumin/Globulin [Mass ratio]1.5 {ratio}[facility] Phone: aLP (Bld) [Catalytic activity/Vol]137 U/LHigh35 - 104 U/LMAnimail Phone: aLT [Catalytic activity/Vol]41 U/LHigh5 - 33 U/LMAnimail Phone: anion gap [Moles/Vol]11 mmol/L9 - 17 mmol/LMpremier health mi[facility] valley hospital southy [facility] Work Phone: aST [Catalytic activity/Vol]36 U/LHigh<32[facility] [employer] Work Phone: bilirubin [Mass/Vol]1.01 mg/dL0.3 - 1.2 mg/dLWood County Hospital [employer] Work Phone: calcium [Mass/Vol]9.6 mg/dL8.6 - 10.4 mg/dLWood County Hospital [employer] Work Phone: chloride [Moles/Vol]106 mmol/L98 - 107 mmol/LMpremier health miami [facility] southy [employer] Work Phone: cO2 [Moles/Vol]24 mmol/L20 - 31 mmol/LMpremier health miami valley [facility] southy [employer] Work Phone: creatinine [Mass/Vol]1.05 mg/dLHigh0.50 - 0.90 mg/dL [facility] [employer] Work Phone: Free PSA/Total PSA [Mass fraction]7.2 g/dL6.4 - 8.3 g/dLWood County Hospital [employer] Work Phone: GFR >60>60 mL/minWood County Hospital [employer] Work Phone: GFR Non- Ysphrhjz23 mL/minLow>60[facility] [employer] Work Phone: Glucose [Mass/Vol]134 mg/zQBkva77 - 99 mg/dLWood County Hospital [employer] Work Phone: Interpretation and review of laboratory results AbnormalWood County Hospital [employer] Work Phone: potassium [Moles/Vol]3.8 mmol/L3.7 - 5.3 mmol/LMpremier health miami valley hospital southy Health Work Phone: sodium [Moles/Vol]141 mmol/L135 - 144 mmol/LMpremier health miami valley hospital southy [employer] Work Phone: Urea nitrogen (BldV) [Mass/Vol]16 mg/dL8 - 23 mg/dL [facility] Phone: Urea nitrogen/Creatinine (Bld) [Mass ratio]15[facility] Center[facility] Phone: [facility]Payment[facility] Phone: laboratory - Chemistry and Chemistry - challenge Ordered By: Arpita Connolly on [id number]/1.73 sq M.predicted MDRD (S/P/Bld) [Vol rate/Area][facility] Phone: comment on above:Average GFR for 60-69 years old: 85 mL/min/1.73sq m Chronic Kidney Disease: <60 mL/min/1.73sq m Kidney failure: <15 mL/min/1.73sq m eGFR calculated using average adult body mass. Additional eGFR calculator available at: http://www.[facility]/multiple_crcl_2011.htm Stage 1: Some kidney damage normal GFR Stage 2: Mild kidney damage GFR 60-89 Stage 3: Moderate kidney damage GFR 30-59 Stage 4: Severe kidney damage GFR 15-29 Stage 5: Severe kidney damage GFR <15 ESRD - chronic treatment by dialysis or transplant CBC Auto Differentialon [id number] (Bld) [#/Vol]0.03 10*3/[facility] [employer] [place], [place]Basophils/100 WBC (Bld)0 %0 - 2 %[facility] [employer], [place]Differential TypeNOT REPORTEDWood County Hospital [facility] [facility] [place], KYEosinophils (Bld) [#/Vol]0.14 10*3/[facility], KYEosinophils/100 WBC (Bld)2 %1 - 4 %[facility] [employer] [place], MAErythrocyte distribution width (RBC) [Ratio]13.6 %11.8 - 14.4 %[facility], [place] Hematocrit (Bld) [Volume fraction]42.5 %36.3 - 47.1 %[facility], [place] Hemoglobin (Bld) [Mass/Vol]13.3 g/dL11.9 - 15.1 g/dLCincinnati Va Medical Center- [place], KYImmature granulocytes (Bld) [#/Vol]0.03 10*3/uLCincinnati Va Medical Center- [place], TOMImmature granulocytes (Bld) [#/Vol]0 %0[facility] [place], TOMLymphocytes (Bld) [#/Vol]2.82 10*3/uLCincinnati Va Medical Center- [place], TOMLymphocytes/100 WBC (Bld)40 %24 - 43 %[facility]- [place], TOMH (RBC) [Entitic mass]28.4 pg25.2 - 33.5 pgCincinnati Va [facility] Center- [place], TOMHC (RBC) [Mass/Vol]31.3 g/dL28.4 - 34.8 g/dLCincinnati Va Medical Center- [place], TOMMCV (RBC) [Entitic vol] 90.6 fL82.6 - 102.9 fLCincinnati Va Medical Center- [place], TOMMonocytes (Bld) [#/Vol]0.43 10*3/uL [facility]- [place], TOMMonocytes/100 WBC (Bld)6 %3 - 12 %[facility]- [place], TOM Platelet mean volume (Bld) [Entitic vol]9.4 fL8.1 - 13.5 fLCincinnati Va Medical Center- [place], TOM Platelets (Bld) [#/Vol]233 10*3/uLCincinnati Va Medical Center- [place], TOMPlatelets (Bld) [#/Vol]NOT REPORTEDCincinnati Va Medical Center- [place], TOMRBC (Bld) [#/Vol]4.69 10*6/uL3.95 - 5.11 m/[facility]- [place], TOMRBC morphology finding Nom (Bld)NOT REPORTEDCincinnati Va Medical Center- [place], TOM Segmented neutrophils/100 WBC (Bld)52 %36 - 65 %[facility]- [place], TOMSegs Absolute3.68[facility]- [place], TOMWBC (Bld) [#/Vol]7.1 10*3/uLCincinnati Va Medical Center- [place], TOM WBC (Bld) [#/Vol]0.0 10*3/uL0.0 per 100 WBCCincinnati Va Medical Center- [place], MAWBC MorphologyNOT REPORTEDCincinnati Va Medical Center- [place], TOMCEAon [id number] ng/mL<3.9[facility]- [place], KYComment on above:The Andres ECLIA assay is used. Results obtained with different assay methods cannot be used interchangeably. Comprehensive Metabolic Panelon [id number] [Mass/Vol]4.3 g/dL3.5 - 5.2 g/dLMercy Health- [place], KYAlbumin/Globulin [Mass ratio]1.3 {ratio}[facility]- [place], KYALP [Catalytic activity/Vol]139 U/LHigh35 - 104 U/LMercy Health- [place], KYALT [Catalytic activity/Vol]24 U/L5 - 33 U/LMercy Health- [place], KYAnion gap [Moles/Vol]9 mmol/L9 - 17 mmol/LMercy Health- [place], KYAST [Catalytic activity/Vol] 22 U/L<32[facility]- [place], KYBilirubin Ql (U)0.82 mg/dL0.3 - 1.2 mg/dLMercy Health- [place], KYBun/Cre Qxtkj59XldvSezka Health- [place], KYCalcium [Mass/Vol]9.4 mg/dL 8.6 - 10.4 mg/dLMercy Health- [place], KYChloride [Moles/Vol]102 mmol/L98 - 107 mmol/LMercy Health- [place], KYCO2 [Moles/Vol]27 mmol/L20 - 31 mmol/LMercy Health- [place], KYCreatinine [Mass/Vol]1 mg/dLHigh0.5 - 0.9 mg/dLMercy Health- [place], KYGFR >60>60 mL/minMercy Health- [place], KYGFR Non- Vzcchziz37 mL/minLow>60[facility]- [place], KYGlucose [Mass/Vol]102 mg/xHWctr36 - 99 mg/dL [facility] [place], KYInterpretation and review of laboratory resultsAbnormalMercy Health- [place], KYPotassium [Moles/Vol]4.1 mmol/L3.7 - 5.3 mmol/LMercy Health- [place], KYProtein [Mass/Vol]7.5 g/dL6.4 - 8.3 g/dLMercy Health- [place], KYSodium [Moles/Vol] 138 mmol/L135 - 144 mmol/LMercy Health- [place], KYUrea nitrogen [Mass/Vol]21 mg/dL8 - 23 mg/dLCherrington HospitalTOMFerritinon [id number] [Mass/Vol]27 ug/L13 - 150 ug/LMBethesda North HospitalTOMMetabolic Panelon [id number]/1.73 sq M predicted among non-blacks MDRD (S/P/Bld) [Vol rate/Area][place], [place] Comment on above:Stage 1: Some kidney damage normal GFR Stage 2: Mild kidney damage GFR 60-89 Stage 3: Moderate kidney damage GFR 30-59 Stage 4: Severe kidney damage GFR 15-29 Stage 5: Severe kidney damage GFR <15 ESRD - chronic treatment by dialysis or transplant Average GFR for 60-69 years old: 85 mL/min/1.73sq m Chronic Kidney Disease: <60 mL/min/1.73sq m Kidney failure: <15 mL/min/1.73sq m eGFR calculated using average adult body mass. Additional eGFR calculator available at: http://www.[facility]/multiple_crcl_2012.htm IR REMOVE TUNNELED CVAD W SQ PORT/PUMP INSERTon [id number] subcutaneous Port-A-Cath removal.[facility] TOMPROCEDURE: SUBCUTANEOUS PORT-A-CATH REMOVAL 02/19/2020 3:08 pm. HISTORY: ORDERING SYSTEM PROVIDED HIS TORY: Malignant neoplasm of sigmoid colon (HCC) Status post completion of chemotherapy. Central venous access port no longer needed. SEDATION: None. FLUOROSCOPY DOSE OR TIME/IMAGES: Fluoro time: 0.1 minutes Dose: 1.91 mGy TECHNIQUE: Informed consent was obtained after a detailed explanation of the p rocedure including risks, benefits, and alternatives. [place] protocol was observed. A time-out was performed to confirm the correct patient and procedure. The right upper chest was prepped and draped in the usual sterile fashion. Local anesthetic was utilized. A skin incision was made just abovethe port. Using blunt and sharp dissection the port was freed from the surrounding tissues and removed. The port catheter was removed and manual pressure held for hemostasis. The incision was closed with 3-0 Vicryl in interrupted fashion and dressed with Dermabond. Patient tolerated the procedure well. No immediate complication. Estimated blood loss: Less than 10 mL.Cherrington HospitalHenrique Mhpn Incoming Radiant Results From Group[employer]/Pacs - 02/20/2020 11:14 AM EST PROCEDURE: SUBCUTANEOUS PORT-A-CATH REMOVAL 02/19/2020 3:08 pm. HISTORY: ORDERING SYSTEM PROVIDED HISTORY: Malignant neoplasm of sigmoid colon (HCC) Status post completion of chemotherapy. Central venous access port no longer needed. SEDATION: None. FLUOROSCOPY DOSE OR TIME/IMAGES: Fluoro time: 0.1 minutes Dose: 1.91 mGy TECHNIQUE: Informed consent was obtained after a detailed explanation of the procedure including risks, benefits, and alternatives. [place] protocol was observed. A time-out was performed to confirm the correct patient and procedure. The right upper chest was prepped and draped in the usual sterile fashion. Local anesthetic was utilized. A skin incision was made just above the port. Using blunt and sharp dissection the port was freed from the surrounding tissues and removed. The port catheter was removed and manual pressure held for hemostasis. The incision was closed with 3-0 Vicryl in interrupted fashion and dressed with Dermabond. Patient tolerated the procedure well. No immediate complication. Estimated blood loss: Less than 10 mL. IMPRESSION: Successful subcutaneous Port-A-Cath removal. [facility], MACBC Auto Differentialon [id number] (Bld) [#/Vol] 10*3/[facility], KYBasophils/100 WBC (Bld)0 %0 - 2 %[facility], [place] Differential TypeNOT REPORTEDCherrington Hospital, KYEosinophils (Bld) [#/Vol]0.13 10*3/[facility], KYEosinophils/100 WBC (Bld)2 %1 - 4 %[facility], MAErythrocyte distribution width (RBC) [Ratio]17.6 %High11.8 - 14.4 %[facility], MAHematocrit (Bld) [Volume fraction]39.9 %36.3 - 47.1 %[facility], KYHemoglobin (Bld) [Mass/Vol]12.9 g/dL11.9 - 15.1 g/dLCherrington Hospital, [place] Immature granulocytes (Bld) [#/Vol]1 %Ggmr6YlycaCincinnati Va Medical Center- [place], KYImmature granulocytes (Bld) [#/Vol]0.03 10*3/[facility]- [place], KYInterpretation and review of laboratory resultsAbnormalSalem City Hospital [place], KYLymphocytes (Bld) [#/Vol]2.38 10*3/[facility]- [place], KYLymphocytes/100 WBC (Bld)40 %24 - 43 % [facility], KYH (RBC) [Entitic mass]26.9 pg25.2 - 33.5 pgSalem City Hospital [place], KYMCHC (RBC) [Mass/Vol]32.3 g/dL28.4 - 34.8 g/dLCincinnati Va Medical Center- [place], KYMCV (RBC) [Entitic vol]83.1 fL82.6 - 102.9 fLCherrington Hospital, KYMonocytes (Bld) [#/Vol]0.37 10*3/[facility]- [place], KYMonocytes/100 WBC (Bld)6 %3 - 12 %[facility], TOMPlatelet mean volume (Bld) [Entitic vol]9.5 fL8.1 - 13.5 fLCincinnati Va Medical Center- [place], KYPlatelets (Bld) [#/Vol]NOT REPORTEDCherrington Hospital, KYPlatelets (Bld) [#/Vol]201 10*3/[facility]- [place], KYRBC (Bld) [#/Vol]4.80 10*6/uL3.95 - 5.11 m/[facility]- [place], KYRBC morphology finding Nom (Bld)NOT REPORTEDCherrington Hospital, TOMSegmented neutrophils/100 WBC (Bld)51 %36 - 65 %[facility], TOMSegs Absolute3.08[facility]- [place], KYWBC (Bld) [#/Vol]6.0 10*3/[facility]- [place], KYWBC (Bld) [#/Vol]0.0 10*3/uL0.0 per 100 WBCCincinnati Va [facility] Center- [place], MAWBC MorphologyNOT REPORTEDCincinnati Va [facility]- [place], TOMCEAon [id number] ng/mL<3.9[facility]- [place], KYComment on above:The Andres ECLIA assay is used. Results obtained with different assay methods cannot be used interchangeably. Comprehensive Metabolic Panelon [id number] [Mass/Vol]4.2 g/dL3.5 - 5.2 g/dLMercy Health- [place], KYAlbumin/Globulin [Mass ratio]1.4 {ratio}[facility]- [place], KYALP [Catalytic activity/Vol]137 U/LHigh35 - 104 U/LMercy Health- [place], KYALT [Catalytic activity/Vol]24 U/L5 - 33 U/LMercy Health- [place], KYAnion gap [Moles/Vol]10 mmol/L9 - 17 mmol/LMercy Health- [place], KYAST [Catalytic activity/Vol]25 U/L<32[facility]- [place], KYBilirubin Ql (U)0.62 mg/dL0.3 - 1.2 mg/dLMercy Health- [place], KYBun/Cre Blqgj77Pcqyv Health- [place], KYCalcium [Mass/Vol] 8.9 mg/dL8.6 - 10.4 mg/dLMercy Health- [place], KYChloride [Moles/Vol]103 mmol/L98 - 107 mmol/LMercy Health- [place], KYCO2 [Moles/Vol]24 mmol/L20 - 31 mmol/LMercy Health- [place], KYCreatinine [Mass/Vol]0.91 mg/dLHigh0.5 - 0.9 mg/dLMercy Health- [place], KYGFR >60>60 mL/minMercy Health- [place], KYGFR Non->60>60 mL/minMercy Health- [place], KYGlucose [Mass/Vol]102 mg/zCDykq49 - 99 mg/dLMercy Health- [place], KYInterpretation and review of laboratory resultsAbnormal [facility]- [place], KYPotassium [Moles/Vol]3.8 mmol/L3.7 - 5.3 mmol/LMercy Health- [place], KYProtein [Mass/Vol]7.1 g/dL6.4 - 8.3 g/dLMercy Health- [place], KYSodium [Moles/Vol]137 mmol/L135 - 144 mmol/LMercy Health- [place], TOMUrea nitrogen [Mass/Vol]14 mg/dL8 - 23 mg/dLCherrington Hospital, TOMFerritinon [id number] [Mass/Vol]22 ug/L13 - 150 ug/[facility], TOMMetabolic Panelon 01-24-2020 GFR/1.73 sq M predicted among non-blacks MDRD (S/P/Bld) [Vol rate/Area][facility] on above:Stage 1: Some kidney damage normal GFR Stage 2: Mild kidney damage GFR 60-89 Stage 3: Moderate kidney damage GFR 30-59 Stage 4: Severe kidney damage GFR 15-29 Stage 5: Severe kidney damage GFR <15 ESRD - chronic treatment by dialysis or transplant Average GFR for 60-69 years old: 85 mL/min/1.73sq m Chronic Kidney Disease: <60 mL/min/1.73sq m Kidney failure: <15 mL/min/1.73sq m eGFR calculated using average adult body mass. Additional eGFR calculator available at: http://www.[facility]/multiple_crcl_2012.htm Protime-INRon [id number] Coag (PPP) [Relative time]1.7 {INR}[facility] on above: Non-therapeutic Range: INR = 0.9-1.2 Therapeutic Range: Moderate Anticoagulant Intensity: INR = 2.0-3.0 High Anticoagulant Intensity: INR = 2.5-3.5 Interpretation and review of laboratory resultsAbnoMercy Health [facility], MAPT Coag (PPP) [Time]19.7 sHigDayton Children's Hospital, TOMColonoscopyon [id number] dictationCherrington Hospital, MACOVID-19 Ambulatoryon [id number]-2, NAANot DetectedNot DetectedSaint Vincent Hospital on above:(NOTE) This nucleic acid amplification test was developed and its performance characteristics determined by [employer]. Nucleic acid amplification tests include PCR and TMA. This test has not been FDA cleared or approved. This test has been authorized by FDA under an Emergency Use Authorization (EUA). This test is only authorized for the duration of time the declaration that circumstances exist justifying the authorization of the emergency use of in vitro diagnostic tests for detection of SARS-CoV-2 virus and/or diagnosis of COVID-19 infection under section 564(b)(1) of the Act, 21 U.S.C. 360bbb-3(b) (1), unless the authorization is terminated or revoked sooner. When diagnostic testing is negative, the possibility of a false negative result should be considered in the context of a patient's recent exposures and the presence of clinical signs and symptoms consistent with COVID-19. An individual without symptoms of COVID- 19 and who is not shedding SARS-CoV-2 virus would expect to have a negative (not detected) result in this assay. Performed At: [facility] [address] [place] [id number] Dunia Wang MD Ph:[phone] Protime-INRon [id number] Coag (PPP) [Relative time]3.5 {INR}[facility] on above: Non-therapeutic Range: INR = 0.9-1.2 Therapeutic Range: Moderate Anticoagulant Intensity: INR = 2.0-3.0 High Anticoagulant Intensity: INR = 2.5-3.5 Interpretation and review of laboratory resultsAbHolmes County Joel [facility] KYPT Coag (PPP) [Time]35 [place], KYProtime-INRon [id number] Coag (PPP) [Relative time]2.3 {INR}[facility] on above: Non-therapeutic Range: INR = 0.9-1.2 Therapeutic Range: Moderate Anticoagulant Intensity: INR = 2.0-3.0 High Anticoagulant Intensity: INR = 2.5-3.5 Interpretation and review of laboratory resultsAbHolmes County [facility] GutCheckPT Coag (PPP) [Time]25.5 [facility] on above:NOTE: NEW REFERENCE RANGEProtime-INRon [id number] Coag (PPP) [Relative time]2.5 {INR} [facility] on above: Non-therapeutic Range: INR = 0.9-1.2 Therapeutic Range: Moderate Anticoagulant Intensity: INR = 2.0-3.0 High Anticoagulant Intensity: INR = 2.5-3.5 Interpretation and review of laboratory resultsAbMercy Health [facility], TOMPT Coag (PPP) [Time]26.6 [facility], TOMSaint John'S Health System on above:NOTE: NEW REFERENCE RANGEProtime-INRon [id number] Coag (PPP) [Relative time]2.3 {INR} [facility], TOMComc.[facility]. [facility] on above: Non-therapeutic Range: INR = 0.9-1.2 Therapeutic Range: Moderate Anticoagulant Intensity: INR = 2.0-3.0 High Anticoagulant Intensity: INR = 2.5-3.5 Interpretation and review of laboratory resultsAbMercy Health Fairfield Hospital, KYPT Coag (PPP) [Time]25.4 [facility], TOMCBC Auto Differentialon [id number] (Bld) [#/Vol]0.03 10*3/[facility], KYBasophils/100 WBC (Bld)1 %0 - 2 %[facility], KYDifferential TypeNOT REPORTEDCherrington Hospital, KYEosinophils (Bld) [#/Vol]0.22 10*3/[facility], [place] Eosinophils/100 WBC (Bld)4 %1 - 4 %[facility], KYErythrocyte distribution width (RBC) [Ratio]16.9 %High11.8 - 14.4 %[facility], KYHematocrit (Bld) [Volume fraction]33.1 %Low36.3 - 47.1 %[facility], KYHemoglobin (Bld) [Mass/Vol]9.9 g/dLLow11.9 - 15.1 g/dLCherrington Hospital, KYImmature granulocytes (Bld) [#/Vol]10*3/[facility], KYImmature granulocytes (Bld) [#/Vol]0 %0 [facility], KYInterpretation and review of laboratory resultsAbMercy Health Fairfield Hospital, KYLymphocytes (Bld) [#/Vol]2.45 10*3/uLMercy Health- [place], TOM Lymphocytes/100 WBC (Bld)42 %24 - 43 %[facility], TOMMCH (RBC) [Entitic mass]22.4 pgLow25.2 - 33.5 pgSalem City Hospital [place], TOMMCHC (RBC) [Mass/Vol]29.9 g/dL 28.4 - 34.8 g/dLCherrington Hospital, TOMMCV (RBC) [Entitic vol]74.9 fLLow82.6 - 102.9 fLSalem City Hospital [place], TOMMonocytes (Bld) [#/Vol]0.45 10*3/uLCincinnati Va Medical Center- [place], TOMMonocytes/100 WBC (Bld)8 %3 - 12 %[facility], TOMPlatelet mean volume (Bld) [Entitic vol]10.1 fL8.1 - 13.5 fLCherrington Hospital, TOMPlatelets (Bld) [#/Vol]NOT REPORTEDCherrington Hospital, TOMPlatelets (Bld) [#/Vol]265 10*3/uLCincinnati Va Medical Center- [place], TOMRBC (Bld) [#/Vol]4.42 10*6/uL3.95 - 5.11 m/[facility], [place] RBC morphology finding Nom (Bld)NOT REPORTEDCherrington Hospital, MASegmented neutrophils/100 WBC (Bld)45 %36 - 65 %[facility], TOMSegs Absolute2.67[facility], TOMWBC (Bld) [#/Vol]0.0 10*3/uL0.0 per 100 WBCCherrington Hospital, [place] WBC (Bld) [#/Vol]5.8 10*3/[facility]- [place], TOMWBC MorphologyNOT REPORTEDCherrington Hospital, TOMCEAon [id number] ng/mL<3.9[facility], MAComment on above:The Andres ECLIA assay is used. Results obtained with different assay methods cannot be used interchangeably. Comprehensive Metabolic Panelon [id number] [Mass/Vol]3.9 g/dL3.5 - 5.2 g/dLMercy Health- [place], KYAlbumin/Globulin [Mass ratio]1.3 {ratio}[facility]- [place], KYALP [Catalytic activity/Vol]189 U/LHigh35 - 104 U/LMerc Health- [place], KYALT [Catalytic activity/Vol]20 U/L5 - 33 U/LMercy Health- [place], KYAnion gap [Moles/Vol]12 mmol/L9 - 17 mmol/LMercy Health- [place], KYAST [Catalytic activity/Vol]25 U/L<32[facility]- [place], KYBilirubin Ql (U)0.47 mg/dL0.3 - 1.2 mg/dLWood County Hospital Health- [place], KYBun/Cre Octlf96UqexFjrem Health- [place], KYCalcium [Mass/Vol]8.8 mg/dL8.6 - 10.4 mg/dLCincinnati Va Medical Center- [place], KYChloride [Moles/Vol]104 mmol/L98 - 107 mmol/LMgenesis hospital [facility]- [place], KYCO2 [Moles/Vol]23 mmol/L20 - 31 mmol/L [facility]- [place], KYCreatinine [Mass/Vol]0.88 mg/dL0.5 - 0.9 mg/dLWood County Hospital Health- [place], KYGFR >60>60 mL/minWood County Hospital Health- [place], KYGFR Non->60>60 mL/minWood County Hospital Health- [place], KYGlucose [Mass/Vol]119 mg/wMHrua47 - 99 mg/dLCincinnati Va Medical Center- [place], KYInterpretation and review of laboratory resultsAbnormal [facility]- [place], KYPotassium [Moles/Vol]3.7 mmol/L3.7 - 5.3 mmol/LMgenesis [facility]- [place], KYProtein [Mass/Vol]7.0 g/dL6.4 - 8.3 g/dLCincinnati Va Medical Center- [place], KYSodium [Moles/Vol]139 mmol/L135 - 144 mmol/LMgenesis hospital Health- [place], KYUrea nitrogen [Mass/Vol]19 mg/dL8 - 23 mg/dLCincinnati Va Medical Center- [place], KYMetabolic Panelon 10-25-2019 GFR/1.73 sq M predicted among non-blacks MDRD (S/P/Bld) [Vol rate/Area][facility], KYComment on above:Stage 1: Some kidney damage normal GFR Stage 2: Mild kidney damage GFR 60-89 Stage 3: Moderate kidney damage GFR 30-59 Stage 4: Severe kidney damage GFR 15-29 Stage 5: Severe kidney damage GFR <15 ESRD - chronic treatment by dialysis or transplant Average GFR for 60-69 years old: 85 mL/min/1.73sq m Chronic Kidney Disease: <60 mL/min/1.73sq m Kidney failure: <15 mL/min/1.73sq m eGFR calculated using average adult body mass. Additional eGFR calculator available at: http://www.[facility]/multiple_crcl_2012.htm Protime-INRon [id number] Coag (PPP) [Relative time]2.5 {INR}[facility] on above: Non-therapeutic Range: INR = 0.9-1.2 Therapeutic Range: Moderate Anticoagulant Intensity: INR = 2.0-3.0 High Anticoagulant Intensity: INR = 2.5-3.5 Interpretation and review of laboratory resultsAbCran[place], KYPT Coag (PPP) [Time]27.3 [place], KYProtime-INRon [id number] Coag (PPP) [Relative time]2.1 {INR}[facility] TOMSaint John'S Health System on above: Non-therapeutic Range: INR = 0.9-1.2 Therapeutic Range: Moderate Anticoagulant Intensity: INR = 2.0-3.0 High Anticoagulant Intensity: INR = 2.5-3.5 Interpretation and review of laboratory resultsAbCran[place], KYPT Coag (PPP) [Time]23.3 [place], KYProtime-INRon [id number] Coag (PPP) [Relative time]3.5 {INR}[facility], TOMInterpretation and review of laboratory resultsAbMercy Health Fairfield Hospital, KYPT Coag (PPP) [Time]34 [place], KYProtime-INRon [id number] Coag (PPP) [Relative time]2.8 {INR}[facility], MAInterpretation and review of laboratory results AbnormalMercy Health- [place], KYPT Coag (PPP) [Time]27.4 [facility]- [place], [place] Protime-INRon [id number] Coag (PPP) [Relative time]5.0 {INR}[facility]- [place], KYInterpretation and review of laboratory resultsAbnormCleveland Clinic [facility]- [place], KYPT Coag (PPP) [Time]47.9 [facility]- [place], KYProtime-INRon [id number] Coag (PPP) [Relative time]1.9 {INR}HighCincinnati Va Medical Center- [place], KYInterpretation and review of laboratory resultsAbnormCleveland Clinic [facility]- [place], KYPT Coag (PPP) [Time]19.4 [facility]- [place], KYCBC Auto Differentialon [id number] (Bld) [#/Vol]0.04 10*3/[facility]- [place], KYBasophils/100 WBC (Bld)1 %0 - 2 %[facility], KYDifferential TypeNOT REPORTEDSalem City Hospital [place], KYEosinophils (Bld) [#/Vol]0.15 10*3/[facility]- [place], KYEosinophils/100 WBC (Bld)2 %1 - 4 %[facility]- [place], KYErythrocyte distribution width (RBC) [Ratio]19.2 %High11.8 - 14.4 %[facility], KYHematocrit (Bld) [Volume fraction]31.8 %Low36.3 - 47.1 % [facility], KYHemoglobin (Bld) [Mass/Vol]9.5 g/dLLow11.9 - 15.1 g/dLSalem City Hospital [place], KYImmature granulocytes (Bld) [#/Vol]0 %[address] [place] [address]- [place], [place] Immature granulocytes (Bld) [#/Vol]0.03 10*3/[facility]- [place], [place] Interpretation and review of laboratory resultsAbnoSelect Medical [facility]Health [facility] [place]- [place], [place] Lymphocytes (Bld) [#/Vol]2.20 10*3/[facility]- [place], KYLymphocytes/100 WBC (Bld)32 %24 - 43 %[facility] HospitalH (RBC) [Entitic mass]24.0 pgLow25.2 - 33.5 pgMemorial Health System Marietta Memorial HospitalHC (RBC) [Mass/Vol]29.9 g/dL28.4 - 34.8 g/dLMemorial Health System Marietta Memorial HospitalV (RBC) [Entitic vol]80.3 fLLow82.6 - 102.9 fLCherrington Hospital, KYMonocytes (Bld) [#/Vol]0.73 10*3/uLCherrington Hospital, KYMonocytes/100 WBC (Bld) 11 %3 - 12 %[facility], MAPlatelet mean volume (Bld) [Entitic vol]9.5 fL 8.1 - 13.5 fLCherrington Hospital, KYPlatelets (Bld) [#/Vol]220 10*3/uLCherrington Hospital, MAPlatelets (Bld) [#/Vol]NOT REPORTEDCherrington Hospital, MARBC (Bld) [#/Vol] 3.96 10*6/uL3.95 - 5.11 m/uLCherrington Hospital, MARBC morphology finding Nom (Bld) NOT REPORTEDCherrington Hospital, MASegmented neutrophils/100 WBC (Bld)54 %36 - 65 % [facility], TOMSegs Absolute3.64[facility], KYWBC (Bld) [#/Vol]0.0 10*3/uL0.0 per 100 WBCCherrington Hospital, MAWBC (Bld) [#/Vol]6.8 10*3/uLCherrington Hospital, KYWBC MorphologyNOT REPORTEDCherrington Hospital, TOMCEAon [id number] 2.9 ng/mL<3.9[facility], MAComment on above:The Andres ECLIA assay is used. Results obtained with different assay methods cannot be used interchangeably. CT ABDOMEN PELVIS W IV CONTRAST Additional Contrast? Oralon . Low density in the biju splenic confluence consistent with venous thrombus. 2. Concentric narrowing of the sigmoid colon due to annular mass lesion likely representing patient's underlying sigmoid colonic neoplasm/malignancy. 3. Mild sigmoid colonic diverticulosis. 4. Small midline fat-containing periumbilical hernia. 5. Low-density lesions scattered throughout the liver, the largest of whichis a hepatic cyst measuring 1.4 cm. Smaller lesions are difficult to characterize. 6. Old granulomatous disease. Findings were discussed with Arpita Connolly at 1:18 pm on 07/19/2019.[facility] CT OF THE ABDOMEN AND PELVIS WITH CONTRAST 07/19/2019 12:41 pm TECHNIQUE: CT of the abdomen and pelvis was performed with the administration of intravenous contrast. Multiplanar reformatted images are provided for review. Dose modulation, iterative reconstruction, and/or weight based adjustment of the mA/kV was utilized to reduce the radiation dose to as low as reasonably achievable. COMPARISON: None. HISTORY: ORDERING SYSTEM PROVIDED HISTORY: Malignant neoplasm of sigmoid colon (HCC) TECHNOLOGIST PROVIDED HISTORY: colon cancer, end of therapy 64-year-old female with sigmoid colon cancer FINDINGS: Lower Chest: Mild bibasilar atelectasis and respiratory motion. No free intra-abdominal air. Organs: Adrenal glands, gallbladder, pancreas and left kidney grossly unremarkable in appearance. No obstructing renal calculus. No hydronephrosis. Scarring/cortical thinning involving the posterior aspect of the right kidney in the lower pole. Scattered calcifications throughout the spleen consistent with old granulomatous disease. Multiple low-density lesions throughout the liver, the largest of which is seen in the left hepatic lobe measuring 1.4 cm on image 17, series 2. Largest likely represent hepatic cysts. Other low-density lesions throughout the liver are too small to characterize. Low density within the biju splenic confluence consistent with venous thrombus on image 42,series 2. GI/Bowel: Oral contrast migrating throughout nondilated small bowel loops without evidence for small bowel obstruction. Concentric narrowing of the sigmoid colon due to annular mass lesion likely representing the patient's underlying malignancy on image 123, series 2. Mild sigmoid diverticulosis. Mild stool burden. Pelvis: Uterus and adnexa grossly unremarkable. No free fluid in the pelvis. Mild distention of the urinary bladder. Pelvic phleboliths. No inguinal or pelvic sidewall lymphadenopathy. Peritoneum/Retroperitoneum: Atheromatous plaque and atherosclerotic calcification of the aorta and branch vasculature. No retroperitoneal lymphadenopathy. Psoas muscles normal in size andsymmetric in appearance. Bones/Soft Tissues: Small midline fat-containing periumbilical hernia. Mild diffuse degenerative changes throughout the spine. Multilevel Schmorl's node deformities.[facility]- [place], Brie Duenas Incoming Radiant Results From [employer] - 07/19/2019 2:04 PM EDT EXAMINATION: CT OF THE ABDOMEN AND PELVIS WITH CONTRAST 07/19/2019 12:41 pm TECHNIQUE: CT of the abdomen and pelvis was performed with the administration of intravenous contrast. Multiplanar reformatted images are provided for review. Dose modulation, iterative reconstruction, and/or weight based adjustment of the mA/kV was utilized to reduce the radiation dose to as low as reasonably achievable. COMPARISON: None. HISTORY: ORDERING SYSTEM PROVIDED HISTORY: Malignant neoplasm of sigmoid colon (HCC) TECHNOLOGIST PROVIDED HISTORY: colon cancer, end of therapy 64-year-old female with sigmoid colon cancer FINDINGS: Lower Chest: Mild bibasilar atelectasis and respiratory motion. No free intra-abdominal air. Organs: Adrenal glands, gallbladder, pancreas and left kidney grossly unremarkable in appearance. No obstructing renal calculus. No hydronephrosis. Scarring/cortical thinning involving the posterior aspect of the right kidney in the lower pole. Scattered calcifications throughout the spleen consistent with old granulomatous disease. Multiple low-density lesions throughout the liver, the largest of which is seen in the left hepatic lobe measuring 1.4 cm on image 17, series 2. Largest likely represent hepatic cysts. Other low-density lesions throughout the liver are too small to characterize. Low density within the biju splenic confluence consistent with venous thrombus on image 42, series 2. GI/Bowel: Oral contrast migrating throughout nondilated small bowel loops without evidence for small bowel obstruction. Concentric narrowing of the sigmoid colon due to annular mass lesion likely representing the patient's underlying malignancy on image 123, series 2. Mild sigmoid diverticulosis. Mild stool burden. Pelvis: Uterus and adnexa grossly unremarkable. No free fluid in the pelvis. Mild distention of the urinary bladder. Pelvic phleboliths. No inguinal or pelvic sidewall lymphadenopathy. Peritoneum/Retroperitoneum: Atheromatous plaque and atherosclerotic calcification of the aorta and branch vasculature. No retroperitoneal lymphadenopathy. Psoas muscles normal in size and symmetric in appearance. Bones/Soft Tissues: Small midline fat-containing periumbilical hernia. Mild diffuse degenerative changes throughout the spine. Multilevel Schmorl's node deformities. IMPRESSION: 1. Low density in the biju splenic confluence consistent with venous thrombus. 2. Concentric narrowing of the sigmoid colon due to annular mass lesion likely representing patient's underlying sigmoid colonic neoplasm/malignancy. 3. Mild sigmoid colonic diverticulosis. 4. Small midline fat-containing periumbilical hernia. 5. Low-density lesions scattered throughout the liver, the largest of which is a hepatic cyst measuring 1.4 cm. Smaller lesions are difficult to characterize. 6. Old granulomatous disease. Findings were discussed with Arpita Connolly at 1:18 pm on 07/19/2019. [facility]- [place], [place]Comprehensive Metabolic Panelon [id number] [Mass/Vol] 4 g/dL3.5 - 5.2 g/dLMer Health- [place], [place]Albumin/Globulin [Mass ratio]1.3 {ratio} [facility]- [place], KYALP [Catalytic activity/Vol]215 U/LHigh35 - 104 U/LMpremier health miami [facility]y [facility]- [place], KYALT [Catalytic activity/Vol]20 U/L5 - 33 U/LMercy Health- [place], [place] Anion gap [Moles/Vol]11 mmol/L9 - 17 mmol/LMercy Health- [place], KYAST [Catalytic activity/Vol]27 U/L<32[facility]- [place], KYBilirubin Ql (U)0.63 mg/dL0.3 - 1.2 mg/dLMercy Health- [place], KYBun/Cre [id number] Health- [place], [place]Calcium [Mass/Vol]9.1 mg/dL8.6 - 10.4 mg/dLMer Health- [place], KYChloride [Moles/Vol]104 mmol/L98 - 107 mmol/LMpremier health miami [facility]y [facility]- [place], KYCO2 [Moles/Vol]23 mmol/L20 - 31 mmol/L [facility]- [place], [place]Creatinine [Mass/Vol]0.81 mg/dL0.5 - 0.9 mg/dLMercy Health- [place], KYGFR >60>60 mL/minMercy Health- [place], KYGFR Non->60>60 mL/minMercy Health- [place], KYGlucose [Mass/Vol]115 mg/qFIeff49 - 99 mg/dLMercy Health- [place], KYInterpretation and review of laboratory resultsAbnormal [facility], KYPotassium [Moles/Vol]4.0 mmol/L3.7 - 5.3 mmol/LMBethesda North Hospital, KYProtein [Mass/Vol]7.1 g/dL6.4 - 8.3 g/dLCherrington Hospital, KYSodium [Moles/Vol]138 mmol/L135 - 144 mmol/LMBethesda North Hospital, KYUrea nitrogen [Mass/Vol]18 mg/dL8 - 23 mg/dLCherrington Hospital, TOMMetabolic Panelon 07-19-2019 GFR/1.73 sq M predicted among non-blacks MDRD (S/P/Bld) [Vol rate/Area][place], KYComment on above:Stage 1: Some kidney damage normal GFR Stage 2: Mild kidney damage GFR 60-89 Stage 3: Moderate kidney damage GFR 30-59 Stage 4: Severe kidney damage GFR 15-29 Stage 5: Severe kidney damage GFR <15 ESRD - chronic treatment by dialysis or transplant Average GFR for 60-69 years old: 85 mL/min/1.73sq m Chronic Kidney Disease: <60 mL/min/1.73sq m Kidney failure: <15 mL/min/1.73sq m eGFR calculated using average adult body mass. Additional eGFR calculator available at: http://www.[employer] [facility]/multiple_crcl_2012.htm CBC Auto Differentialon [id number] (Bld) [#/Vol]0.00 10*3/[facility], KYBasophils/100 WBC (Bld)0 %0 - 2 %[facility], TOMDifferential TypeNOT REPORTEDCherrington Hospital, KYEosinophils (Bld) [#/Vol]0.22 10*3/[facility], KYEosinophils/100 WBC (Bld)3 %1 - 4 %[facility], MAErythrocyte distribution width (RBC) [Ratio]20.3 %High11.8 - 14.4 %[facility], [place] Hematocrit (Bld) [Volume fraction]30.9 %Low36.3 - 47.1 %[facility], [place] Hemoglobin (Bld) [Mass/Vol]9.1 g/dLLow11.9 - 15.1 g/dLCherrington Hospital, [place] Immature granulocytes (Bld) [#/Vol]0.29 10*3/uLCherrington Hospital, TOMImmature granulocytes (Bld) [#/Vol]4 %Wyhx9NomgmC[facility]rington Hospital, TOMInterpretation and review of laboratory resultsAbnormalC[facility]rington Hospital, KYLymphocytes (Bld) [#/Vol]2.52 10*3/uLCherrington Hospital, KYLymphocytes/100 WBC (Bld)35 %24 - 43 %[facility], MAMCH (RBC) [Entitic mass]24.1 pgLow25.2 - 33.5 pgCherrington Hospital, MAMCHC (RBC) [Mass/Vol]29.4 g/dL28.4 - 34.8 g/dLCherrington Hospital, MAMCV (RBC) [Entitic vol]81.7 fLLow82.6 - 102.9 fLCherrington Hospital, TOMMonocytes (Bld) [#/Vol]0.65 10*3/[facility], TOMMonocytes/100 WBC (Bld)9 %3 - 12 %[facility], TOMMorphology Pilo (Bld) [Interp]ANISOCYTOSIS PRESENTCherrington Hospital, MAPlatelet mean volume (Bld) [Entitic vol]10.8 fL8.1 - 13.5 fLCherrington Hospital, KYPlatelets (Bld) [#/Vol]NOT REPORTEDCherrington Hospital, KYPlatelets (Bld) [#/Vol]145 10*3/uL [facility], KYRBC (Bld) [#/Vol]3.78 10*6/uLLow3.95 - 5.11 m/uLCherrington Hospital, MARBC morphology finding Nom (Bld)NOT REPORTEDCherrington Hospital, [place] Segmented neutrophils/100 WBC (Bld)49 %36 - 65 %[facility], TOMSegs Absolute3.52[facility], KYWBC (Bld) [#/Vol]7.2 10*3/uLMercy Health- [place], [place] WBC (Bld) [#/Vol]0.0 10*3/uL0.0 per 100 WBCMercy Health- [place], KYWBC MorphologyNOT REPORTEDMercy Health- [place], KYCEAon [id number] ng/mL<3.9[facility]- [place], KYComment on above:The Andres ECLIA assay is used. Results obtained with different assay methods cannot be used interchangeably. Comprehensive Metabolic Panelon [id number] [Mass/Vol]3.8 g/dL3.5 - 5.2 g/dLMercy Health- [place], KYAlbumin/Globulin [Mass ratio]1.4 {ratio}[facility]- [place], KYALP [Catalytic activity/Vol]231 U/LHigh35 - 104 U/LMercy Health- [place], KYALT [Catalytic activity/Vol]18 U/L5 - 33 U/LMercy Health- [place], KYAnion gap [Moles/Vol]14 mmol/L9 - 17 mmol/LMercy Health- [place], KYAST [Catalytic activity/Vol]24 U/L<32[facility]- [place], KYBilirubin Ql (U)0.45 mg/dL0.3 - 1.2 mg/dLMercy Health- [place], KYBun/Cre Vsdws68Sryzx Health- [place], KYCalcium [Mass/Vol] 8.6 mg/dL8.6 - 10.4 mg/dLMercy Health- [place], KYChloride [Moles/Vol]105 mmol/L98 - 107 mmol/LMercy Health- [place], KYCO2 [Moles/Vol]21 mmol/L20 - 31 mmol/LMercy Health- [place], KYCreatinine [Mass/Vol]0.87 mg/dL0.5 - 0.9 mg/dLMercy Health- [place], [place] GFR >60>60 mL/minMercy Health- [place], KYGFR Non->60 >60 mL/minMercy Health- [place], KYGlucose [Mass/Vol]171 mg/bZZoxg25 - 99 mg/dLMercy Health- [place], KYInterpretation and review of laboratory resultsAbnormalMercy Health- [place], KYPotassium [Moles/Vol]3.4 mmol/LLow3.7 - 5.3 mmol/LMHipLink, KYProtein [Mass/Vol]6.6 g/dL6.4 - 8.3 g/dLWood [facility] Hospital Style[facility] [place], KYSodium [Moles/Vol]140 mmol/L135 - 144 mmol/LMgenesis [facility] StyleHopSAINT MARY[facility], KYUrea nitrogen [Mass/Vol]14 mg/dL8 - 23 mg/dLWood County Hospital StyleHopSAINT MARY'S [facility], KYMetabolic Panelon 06-19-2019 GFR/1.73 sq M predicted among non-blacks MDRD (S/P/Bld) [Vol rate/Area][facility] [employer] [place], KYComment on above:Stage 1: Some kidney damage normal GFR Stage 2: Mild kidney damage GFR 60-89 Stage 3: Moderate kidney damage GFR 30-59 Stage 4: Severe kidney damage GFR 15-29 Stage 5: Severe kidney damage GFR <15 ESRD - chronic treatment by dialysis or transplant Average GFR for 60-69 years old: 85 mL/min/1.73sq m Chronic Kidney Disease: <60 mL/min/1.73sq m Kidney failure: <15 mL/min/1.73sq m eGFR calculated using average adult body mass. Additional eGFR calculator available at: http://www.[facility] [facility]/multiple_crcl_2011.htm CBC Auto Differentialon [id number] (Bld) [#/Vol]0.15 10*3/[employer] Phone: basophils/100 WBC (Bld)1 %0 - 2 %[facility] Phone: differential TypeNOT REPORTEDMetronom Health Phone: eosinophils (Bld) [#/Vol]0.00 10*3/[employer] Phone: eosinophils/100 WBC (Bld)0 %Low1 - 4 %[facility] Phone: erythrocyte distribution width (RBC) [Ratio]21.2 %High 11.8 - 14.4 %[facility] Phone: Hematocrit (Bld) [Volume fraction]34.8 %Low36.3 - 47.1 %[facility] Phone: Hemoglobin (Bld) [Mass/Vol]10.2 g/dLLow11.9 - 15.1 g/dLCincinnati Children'S Hospital Medical CenterPaymentOne Phone: Immature granulocytes (Bld) [#/Vol]6 %Xqrb0TunbjPaymentOne Phone: Immature granulocytes (Bld) [#/Vol]0.89 10*3/uLHigh St[address] Rita[facility] HospitalNexus EnergyHomes Phone: Interpretation and review of laboratory results AbnormalCincinnati Children'S Hospital Medical CenterPaymentOne Phone: lymphocytes (Bld) [#/Vol]4.14 10*3/uLHighCincinnati Children'S Hospital Medical CenterPaymentOne Phone: Lymphocytes/100 WBC (Bld)28 %24 - 43 %[facility] HospitalN[facility] EnergyHomes Phone: MCH (RBC) [Entitic mass]23.9 pgLow25.2 - 33.5 pgCincinnati Children'S Hospital Medical CenterPaymentOne Phone: MCHC (RBC) [Mass/Vol]29.3 g/dL28.4 - 34.8 g/dLCincinnati Children'S Hospital Medical CenterPaymentOne Phone: MCV (RBC) [Entitic vol]81.7 fLLow82.6 - 102.9 fLCincinnati Children'S Hospital Medical CenterPaymentOne Phone: Monocytes (Bld) [#/Vol]0.59 10*3/uLCincinnati Children'S Hospital Medical CenterPaymentOne Phone: Monocytes/100 WBC (Bld)4 %3 - 12 %[facility] Phone: Morphology Pilo (Bld) [Interp]Normal ANISOCYTOSIS PRESENTCincinnati Children'S Hospital Medical CenterPaymentOne Phone: platelet mean volume (Bld) [Entitic vol]10.1 fL8.1 - 13.5 fLCincinnati Children'S Hospital Medical CenterPaymentOne Phone: Platelets (Bld) [#/Vol]158 10*3/uLCincinnati Children'S Hospital Medical CenterMedical Direct Club Work Phone: Platelets (Bld) [#/Vol]NOT REPORTEDCincinnati Children'S Hospital Medical CenterPaymentOne Phone: RBC (Bld) [#/Vol]4.26 10*6/uL3.95 - 5.11 m/uLCincinnati Children'S Hospital Medical CenterPaymentOne Phone: RBC morphology finding Nom (Bld)NOT REPORTEDCincinnati Children'S Hospital Medical CenterPaymentOne Phone: Segmented neutrophils/100 WBC (Bld)61 %36 - 65 %[facility] HospitalNex[facility] EnergyHomes Phone: segs Absolute9.03HighCincinnati Children'S Hospital Medical CenterPaymentOne Phone: WBC (Bld) [#/Vol]0.0 10*3/uL0.0 per 100 WBCCincinnati Children'S Hospital Medical CenterPaymentOne Phone: WBC (Bld) [#/Vol]14.8 10*3/uLHighCincinnati Children'S Hospital Medical CenterPaymentOne Phone: WBC MorphologyNOT REPORTEDCincinnati Children'S Hospital Medical CenterPaymentOne Phone: cEAon [id number] ng/mLHigh<3.9C[facility] CenterPaymentOne Phone: comment on above:The Andres ECLIA assay is used. Results obtained with different assay methods cannot be used interchangeably. Interpretation and review of laboratory resultsAbnormalCincinnati Children'S Hospital Medical CenterPaymentOne Phone: comprehensive Metabolic Panelon [id number] [Mass/Vol]4.1 g/dL3.5 - 5.2 g/dLCincinnati Children'S Hospital Medical CenterPaymentOne Phone: albumin/Globulin [Mass ratio]1.4 {ratio}[facility] Phone: aLP [Catalytic activity/Vol]296 U/LHigh35 - 104 U/L [facility] HospitalNex[facility] EnergyHomes Phone: aLT [Catalytic activity/Vol]20 U/L5 - 33 U/LMpremier health [facility] southy Health Work Phone: anion gap [Moles/Vol]14 mmol/L9 - 17 mmol/LMercy Health Work Phone: aST [Catalytic activity/Vol]26 U/L<32Mer [employer] Work Phone: bilirubin Ql (U)0.47 mg/dL0.3 - 1.2 mg/dLWood County Hospital [employer] Work Phone: bun/Cre Krkjc10RlwnXzzyt [employer] Work Phone: calcium [Mass/Vol]9.5 mg/dL8.6 - 10.4 mg/dLWood County Hospital [employer] Work Phone: chloride [Moles/Vol]104 mmol/L98 - 107 mmol/LMpremier health miami valley hospital southy Health Work Phone: cO2 [Moles/Vol]22 mmol/L20 - 31 mmol/LMpremier health miami valley hospital southy [facility] Work Phone: creatinine [Mass/Vol]0.87 mg/dL0.5 - 0.9 mg/dLWood County Hospital [employer] Work Phone: GFR >60>60 mL/minWood County Hospital [employer] Work Phone: GFR Non->60>60 mL/minWood County Hospital [employer] Work Phone: Glucose [Mass/Vol]160 mg/kFBaeh98 - 99 mg/dLWood County Hospital [employer] Work Phone: Interpretation and review of laboratory results AbnormalWood County Hospital [employer] Work Phone: potassium [Moles/Vol]3.6 mmol/LLow3.7 - 5.3 mmol/L [facility] Work Phone: protein [Mass/Vol]7.1 g/dL6.4 - 8.3 g/dLWood County Hospital [employer] Work Phone: sodium [Moles/Vol]140 mmol/L135 - 144 mmol/LMpremier health miami valley hospital southNexus EnergyHomes Phone: Urea nitrogen [Mass/Vol]21 mg/dL8 - 23 mg/dLMetronom Health Phone: Metabolic Panelon [id number]/1.73 sq M predicted among non-blacks MDRD (S/P/Bld) [Vol rate/Area][facility] Phone: comment on above:Average GFR for 60-69 years old: 85 mL/min/1.73sq m Chronic Kidney Disease: <60 mL/min/1.73sq m Kidney failure: <15 mL/min/1.73sq m eGFR calculated using average adult body mass. Additional eGFR calculator available at: http://www.[facility]/multiple_crcl_2012.htm Stage 1: Some kidney damage normal GFR Stage 2: Mild kidney damage GFR 60-89 Stage 3: Moderate kidney damage GFR 30-59 Stage 4: Severe kidney damage GFR 15-29 Stage 5: Severe kidney damage GFR <15 ESRD - chronic treatment by dialysis or transplant CBC Auto Differentialon [id number] (Bld) [#/Vol]0.15 10*3/[employer] Phone: basophils/100 WBC (Bld)1 %0 - 2 %[facility] Phone: differential TypeNOT REPORTEDMetronom Health Phone: eosinophils (Bld) [#/Vol]0.46 10*3/uLVeterans Affairs Medical CenterMetronom Health Phone: eosinophils/100 WBC (Bld)3 %1 - 4 %[facility] Phone: erythrocyte distribution width (RBC) [Ratio]20.8 %High 11.8 - 14.4 %[facility] Phone: Hematocrit (Bld) [Volume fraction]30.4 %Low36.3 - 47.1 %[facility] Phone: Hemoglobin (Bld) [Mass/Vol]8.9 g/dLLow11.9 - 15.1 g/dL [facility] Phone: Immature granulocytes (Bld) [#/Vol]11 %Pkqs1KamquPaymentOne Phone: Immature granulocytes (Bld) [#/Vol]1.69 10*3/uLHigh St. Rita[facility] HospitalNexus EnergyHomes Phone: Interpretation and review of laboratory results AbnormalCincinnati Children'S Hospital Medical CenterPaymentOne Phone: lymphocytes (Bld) [#/Vol]3.70 10*3/uLCincinnati Children'S Hospital Medical CenterPaymentOne Phone: lymphocytes/100 WBC (Bld)24 %24 - 43 %[facility] Phone: MCH (RBC) [Entitic mass]23.5 pgLow25.2 - 33.5 pgCincinnati Children'S Hospital Medical CenterPaymentOne Phone: MCHC (RBC) [Mass/Vol]29.3 g/dL28.4 - 34.8 g/dLCincinnati Children'S Hospital Medical CenterPaymentOne Phone: MCV (RBC) [Entitic vol]80.4 fLLow82.6 - 102.9 fLCincinnati Children'S Hospital Medical CenterPaymentOne Phone: Monocytes (Bld) [#/Vol]0.77 10*3/uLCincinnati Children'S Hospital Medical CenterPaymentOne Phone: Monocytes/100 WBC (Bld)5 %3 - 12 %[facility] Phone: Morphology Plio (Bld) [Interp]ANISOCYTOSIS PRESENTCincinnati Children'S Hospital Medical CenterPaymentOne Phone: Nucleated RBC/100 WBC (Bld) [Ratio]1 %[facility] Phone: platelet mean volume (Bld) [Entitic vol]NOT REPORTED 8.1 - 13.5 fLCincinnati Children'S Hospital Medical CenterPaymentOne Phone: Platelets (Bld) [#/Vol]See Reflexed IPF ResultCincinnati Children'S Hospital Medical CenterPaymentOne Phone: Platelets (Bld) [#/Vol]NOT REPORTEDCincinnati Children'S Hospital Medical CenterMedical [facility] Club Work Phone: RBC (Bld) [#/Vol]3.78 10*6/uLLow3.95 - 5.11 m/uLCincinnati Children'S Hospital Medical CenterPaymentOne Phone: RBC morphology finding Nom (Bld)NOT REPORTEDCincinnati Children'S Hospital Medical CenterPaymentOne Phone: Tegmented neutrophils/100 WBC (Bld)56 %36 - 65 %[facility] HospitalNex[facility] EnergyHomes Phone: segs Absolute8.63HighCincinnati Children'S Hospital Medical CenterPaymentOne Phone: WBC (Bld) [#/Vol]15.4 10*3/uLHighCincinnati Children'S Hospital Medical CenterPaymentOne Phone: WBC (Bld) [#/Vol]0.2 10*3/uLHigh0.0 per 100 WBCCincinnati Children'S Hospital Medical CenterPaymentOne Phone: WBC MorphologyNOT REPORTEDCincinnati Children'S Hospital Medical CenterPaymentOne Phone: cEAon [id number] ng/mLHigh<3.9C[facility] CenterPaymentOne Phone: comment on above:The Andres ECLIA assay is used. Results obtained with different assay methods cannot be used interchangeably. Interpretation and review of laboratory resultsAbnormalCincinnati Children'S Hospital Medical CenterPaymentOne Phone: comprehensive Metabolic Panelon [id number] [Mass/Vol]3.8 g/dL3.5 - 5.2 g/dLCincinnati Children'S Hospital Medical CenterPaymentOne Phone: albumin/Globulin [Mass ratio]1.4 {ratio}[facility] Phone: aLP [Catalytic activity/Vol]225 U/LHigh35 - 104 U/L [facility] HospitalN[facility] EnergyH[facility] Phone: aLT [Catalytic activity/Vol]20 U/L5 - 33 U/LMpremier health miami valley hospital southNexus EnergyHomes Phone: Onion gap [Moles/Vol]13 mmol/L9 - 17 mmol/LMercy Health Work Phone: aST [Catalytic activity/Vol]33 U/LHigh<32Mer [employer] Work Phone: bilirubin Ql (U)0.48 mg/dL0.3 - 1.2 mg/dLWood County Hospital [employer] Work Phone: Xun/Cre [id number] [employer] Work Phone: Falcium [Mass/Vol]9.0 mg/dL8.6 - 10.4 mg/dLWood County Hospital [employer] Work Phone: Jhloride [Moles/Vol]104 mmol/L98 - 107 mmol/LMpremier health miami valley hospital southy Health Work Phone: MO2 [Moles/Vol]22 mmol/L20 - 31 mmol/LMgenesis hospital [employer] Work Phone: creatinine [Mass/Vol]0.81 mg/dL0.5 - 0.9 mg/dLWood County Hospital [employer] Work Phone: GFR >60>60 mL/minWood County Hospital [employer] Work Phone: GFR Non->60>60 mL/minWood County Hospital [employer] Work Phone: Glucose [Mass/Vol]171 mg/uLYrtl33 - 99 mg/dLWood County Hospital [employer] Work Phone: Interpretation and review of laboratory results AbnormalWood County Hospital [employer] Work Phone: Gotassium [Moles/Vol]3.6 mmol/LLow3.7 - 5.3 mmol/L [facility] [employer] Work Phone: protein [Mass/Vol]6.5 g/dL6.4 - 8.3 g/dLWood County Hospital [employer] Work Phone: sodium [Moles/Vol]139 mmol/L135 - 144 mmol/LMercy Health Work Phone: Urea nitrogen [Mass/Vol]18 mg/dL8 - 23 mg/dLCincinnati Children'S Hospital Medical CenterPaymentOne Phone: Immature Platelet Fractionon [id number], Pztnpumtfrkw259Dktev Health Work Phone: platelet, Immature Fraction4.0 %1.1 - 10.3 %[facility] Phone: Metabolic Panelon [id number]/1.73 sq M predicted among non-blacks MDRD (S/P/Bld) [Vol rate/Area][facility] Phone: comment on above:Average GFR for 60-69 years old: 85 mL/min/1.73sq m Chronic Kidney Disease: <60 mL/min/1.73sq m Kidney failure: <15 mL/min/1.73sq m eGFR calculated using average adult body mass. Additional eGFR calculator available at: http://www.[facility]/multiple_crcl_2012.htm Stage 1: Some kidney damage normal GFR Stage 2: Mild kidney damage GFR 60-89 Stage 3: Moderate kidney damage GFR 30-59 Stage 4: Severe kidney damage GFR 15-29 Stage 5: Severe kidney damage GFR <15 ESRD - chronic treatment by dialysis or transplant CBC Auto DifferentialOrdered By: Raymundo Luque on [id number] Eos # 0.10[facility] CenterPaymentOne Phone: absolute Immature Granulocyte0.29[facility] CenterPaymentOne Phone: absolute Lymph #3.04[facility] Phone: absolute [place] #0.69[facility] Phone: basophils (Bld) [#/Vol]0.10 10*3/uLMetronom Health Phone: basophils/100 WBC (Bld)1 %0 - 2 %[facility] Phone: differential TypeNOT REPORTEDMetronom Health Phone: eosinophils/100 WBC (Bld)1 %1 - 4 %[facility] Phone: erythrocyte distribution width (RBC) [Ratio]20.9 %High 11.8 - 14.4 %[facility] Phone: Hematocrit (Bld) [Volume fraction]33.2 %Low36.3 - 47.1 %[facility] Phone: Hemoglobin (Bld) [Mass/Vol]9.8 g/dLLow11.9 - 15.1 g/dL [facility] Phone: Immature granulocytes/100 WBC (Bld)3 %Nwjt4IuewoPaymentOne Phone: Interpretation and review of laboratory results AbnormalCincinnati Children'S Hospital Medical CenterPaymentOne Phone: lymphocytes/100 WBC (Bld)31 %24 - 43 %[facility] Phone: MCH (RBC) [Entitic mass]23.7 pgLow25.2 - 33.5 pgCincinnati Children'S Hospital Medical CenterPaymentOne Phone: MCHC (RBC) [Mass/Vol]29.5 g/dL28.4 - 34.8 g/dLCincinnati Children'S Hospital Medical CenterPaymentOne Phone: MCV (RBC) [Entitic vol]80.2 fLLow82.6 - 102.9 fLCincinnati Children'S Hospital Medical Center[employer]One Phone: Monocytes/100 WBC (Bld)7 %3 - 12 %[facility] Phone: Morphology Pilo (Bld) [Interp]NormalCincinnati Children'S Hospital Medical CenterPaymentOne Phone: NRBC Automated0.00.0 per 100 WBCCincinnati Children'S Hospital Medical CenterPaymentOne Phone: platelet EstimateNOT REPORTEDCincinnati Children'S Hospital Medical CenterPaymentOne Phone: platelet mean volume (Bld) [Entitic vol]9.7 fL8.1 - 13.5 fLCincinnati Children'S Hospital Medical CenterPaymentOne Phone: Ylatelets (Bld) [#/Vol]178 10*3/uLCincinnati Children'S Hospital Medical CenterPaymentOne Phone: RBC (Bld) [#/Vol]4.14 10*6/uL3.95 - 5.11 m/uLCincinnati Children'S Hospital Medical CenterPaymentOne Phone: rBC morphology finding Nom (Bld)NOT REPORTEDCincinnati Children'S Hospital Medical CenterPaymentOne Phone: segmented neutrophils/100 WBC (Bld)57 %36 - 65 %[facility] Phone: segs Absolute5.58[facility] CenterPaymentOne Phone: WBC (Bld) [#/Vol]9.8 10*3/uLCincinnati Children'S Hospital Medical CenterPaymentOne Phone: WBC MorphologyNOT REPORTEDCincinnati Children'S Hospital Medical CenterPaymentOne Phone: cEAOrdered By: Raymundo Luque on [id number] ng/mLHigh<3.9[facility] CenterPaymentOne Phone: comment on above:The Andres ECLIA assay is used. Results obtained with different assay methods cannot be used interchangeably. Interpretation and review of laboratory resultsAbnormalCincinnati Children'S Hospital Medical CenterPaymentOne Phone: comprehensive Metabolic PanelOrdered By: Raymundo Rashid on [id number] [Mass/Vol]4 g/dL3.5 - 5.2 g/dLCincinnati Children'S Hospital Medical CenterPaymentOne Phone: albumin/Globulin [Mass ratio]1.4 {ratio}[facility] Hospital[facility] Phone: aLP [Catalytic activity/Vol]242 U/LHigh35 - 104 U/L [facility] Hospital[facility] Phone: aLT [Catalytic activity/Vol]18 U/L5 - 33 U/LMpremier health miami valley hospital southNexus EnergyHomes Phone: Anion gap [Moles/Vol]12 mmol/L9 - 17 mmol/LMpremier health miami valley hospital southy [employer] Work Phone: aST [Catalytic activity/Vol]25 U/L<32[facility] [employer] Phone: bilirubin [Mass/Vol]0.55 mg/dL0.3 - 1.2 mg/dLWood County Hospital [employer] Phone: bun/Cre [id number] [employer] Phone: calcium [Mass/Vol]9.3 mg/dL8.6 - 10.4 mg/dLWood County Hospital [employer] Phone: chloride [Moles/Vol]104 mmol/L98 - 107 mmol/LMgenesis hospital [employer] Phone: cO2 [Moles/Vol]23 mmol/L20 - 31 mmol/LMgenesis hospital [employer] Phone: creatinine [Mass/Vol]0.93 mg/dLHigh0.5 - 0.9 mg/dL [facility] [employer] Phone: GFR >60>60 mL/minWood County Hospital [employer] Phone: GFR CommentWood County Hospital [employer] Phone: comment on above:Average GFR for 60-69 years old: 85 mL/min/1.73sq m Chronic Kidney Disease: <60 mL/min/1.73sq m Kidney failure: <15 mL/min/1.73sq m eGFR calculated using average adult body mass. Additional eGFR calculator available at: http://www.SolFocus.Xpliant/multiple_crcl_2012.htm GFR Non->60>60 mL/minWood County Hospital Kit[employer] Phone: GFR StagingWood County Hospital [employer] Phone: comment on above:Stage 1: Some kidney damage normal GFR Stage 2: Mild kidney damage GFR 60-89 Stage 3: Moderate kidney damage GFR 30-59 Stage 4: Severe kidney damage GFR 15-29 Stage 5: Severe kidney damage GFR <15 ESRD - chronic treatment by dialysis or transplant Glucose [Mass/Vol]145 mg/eVEibi00 - 99 mg/dLMetronom Health Phone: Interpretation and review of laboratory results AbnormalCincinnati Children'S Hospital Medical CenterPaymentOne Phone: potassium [Moles/Vol]3.7 mmol/L3.7 - 5.3 mmol/LMpremier health miami valley hospital southNexus EnergyHomes Phone: protein [Mass/Vol]6.8 g/dL6.4 - 8.3 g/dLCincinnati Children'S Hospital Medical CenterPaymentOne Phone: sodium [Moles/Vol]139 mmol/L135 - 144 mmol/LMAnimail Phone: Urea nitrogen [Mass/Vol]16 mg/dL8 - 23 mg/dLMetronom Health Phone: cBC Auto DifferentialOrdered By: Raymundo Luque on [id number] Eos #0.14[facility] CenterPaymentOne Phone: absolute Immature Granulocyte0.69HighMetronom Health Phone: absolute Lymph #5.68HighMetronom Health Phone: absolute [place] #0.55[facility] CenterPaymentOne Phone: basophils (Bld) [#/Vol]0.00 10*3/uLCincinnati Children'S Hospital Medical CenterPaymentOne Phone: basophils/100 WBC (Bld)0 %0 - 2 %[facility] Phone: differential TypeNOT REPORTEDCincinnati Children'S Hospital Medical CenterPaymentOne Phone: eosinophils/100 WBC (Bld)1 %1 - 4 %[facility] Phone: erythrocyte distribution width (RBC) [Ratio]21.6 %High 11.8 - 14.4 %[facility] Phone: Hematocrit (Bld) [Volume fraction]33.3 %Low36.3 - 47.1 %[facility] HospitalN[facility] EnergyH[facility] Phone: Hemoglobin (Bld) [Mass/Vol]9.8 g/dLLow11.9 - 15.1 g/dL [facility] HospitalN[facility] Phone: Immature granulocytes/100 WBC (Bld)5 %[employer]k2IiuslPaymentOne Phone: Interpretation and review of laboratory results AbnormalCincinnati Children'S Hospital Medical CenterPaymentOne Phone: lymphocytes/100 WBC (Bld)41 %24 - 43 %[facility] HospitalN[facility] EnergyH[facility] Phone: MCH (RBC) [Entitic mass]23.6 pgLow25.2 - 33.5 pgCincinnati Children'S Hospital Medical CenterPaymentOne Phone: MCHC (RBC) [Mass/Vol]29.4 g/dL28.4 - 34.8 g/dLCincinnati Children'S Hospital Medical CenterPaymentOne Phone: MCV (RBC) [Entitic vol]80.2 fLLow82.6 - 102.9 fLCincinnati Children'S Hospital Medical CenterPaymentOne Phone: Monocytes/100 WBC (Bld)4 %3 - 12 %[facility] HospitalN[facility] EnergyH[facility] Phone: Morphology Pilo (Bld) [Interp]ANISOCYTOSIS PRESENTCincinnati Children'S Hospital Medical CenterPaymentOne Phone: [phone] Health Work Phone: NRBC Automated0.00.0 per 100 WBCCincinnati Children'S Hospital Medical CenterPaymentOne Phone: platelet EstimateNOT REPORTEDWood County Hospital [employer] Phone: platelet mean volume (Bld) [Entitic vol]9.8 fL8.1 - 13.5 fLCincinnati Children'S Hospital Medical CenterPaymentOne Phone: platelets (Bld) [#/Vol]195 10*3/uLWood County Hospital [employer] Phone: RBC (Bld) [#/Vol]4.15 10*6/uL3.95 - 5.11 m/uLCincinnati Children'S Hospital Medical CenterPaymentOne Phone: rBC morphology finding Nom (Bld)NOT REPORTEDCincinnati Children'S Hospital Medical CenterPaymentOne Phone: segmented neutrophils/100 WBC (Bld)49 %36 - 65 %[facility] HospitalN[facility] EnergyH[facility] Phone: segs Absolute6.80[facility] CenterPaymentOne Phone: WBC (Bld) [#/Vol]13.9 10*3/uLHighWood County Hospital [employer] Phone: comment on above:ADJUSTED FOR NUCLEATED RBC'S CORRECTED ON 04/24 AT 0854: PREVIOUSLY REPORTED 14.0 WBC MorphologyNOT REPORTEDCincinnati Children'S Hospital Medical CenterPaymentOne Phone: cEAOrdered By: Raymundo Luque on [id number] ng/mLHigh<3.9[facility] CenterPaymentOne Phone: comment on above:The [employer] ECLIA assay is used. Results obtained with different assay methods cannot be used interchangeably. Interpretation and review of laboratory resultsAbnormalCincinnati Children'S Hospital Medical CenterPaymentOne Phone: comprehensive Metabolic PanelOrdered By: Raymundo Rashid on [id number] [Mass/Vol]3.9 g/dL3.5 - 5.2 g/dLCincinnati Children'S Hospital Medical CenterPaymentOne Phone: albumin/Globulin [Mass ratio]1.3 {ratio}[facility] HospitalN[facility] EnergyH[facility] Phone: aLP [Catalytic activity/Vol]240 U/LHigh35 - 104 U/L [facility] HospitalN[facility] Phone: aLT [Catalytic activity/Vol]23 U/L5 - 33 U/LMpremier health miami valley hospital southNexus EnergyHomes Phone: anion gap [Moles/Vol]16 mmol/L9 - 17 mmol/LMgenesis hospital [employer] Phone: aST [Catalytic activity/Vol]29 U/L<32[facility] CenterPaymentOne Phone: bilirubin [Mass/Vol]0.50 mg/dL0.3 - 1.2 mg/dLWood County Hospital [employer] Phone: bun/Cre [id number] [employer] Phone: calcium [Mass/Vol]9.2 mg/dL8.6 - 10.4 mg/dLWood County Hospital [employer] Phone: chloride [Moles/Vol]101 mmol/L98 - 107 mmol/LMpremier health miami valley hospital southy [employer] Work Phone: cO2 [Moles/Vol]23 mmol/L20 - 31 mmol/LMercy [employer] Work Phone: creatinine [Mass/Vol]0.9 mg/dL0.5 - 0.9 mg/dLWood County Hospital [employer] Phone: GFR >60>60 mL/minWood County Hospital [employer] Phone: GFR CommentWood County Hospital [employer] Phone: comment on above:Average GFR for 60-69 years old: 85 mL/min/1.73sq m Chronic Kidney Disease: <60 mL/min/1.73sq m Kidney failure: <15 mL/min/1.73sq m eGFR calculated using average adult body mass. Additional eGFR calculator available at: http://www.SolFocus.Xpliant/multiple_crcl_2012.htm GFR Non->60>60 mL/minWood County Hospital [employer] Phone: GFR StagingWood County Hospital [employer] Phone: comment on above:Stage 1: Some kidney damage normal GFR Stage 2: Mild kidney damage GFR 60-89 Stage 3: Moderate kidney damage GFR 30-59 Stage 4: Severe kidney damage GFR 15-29 Stage 5: Severe kidney damage GFR <15 ESRD - chronic treatment by dialysis or transplant Glucose [Mass/Vol]153 mg/uCFqxs46 - 99 mg/dLWood County Hospital [employer] Phone: Interpretation and review of laboratory results AbnormalMerPaymentOne Phone: potassium [Moles/Vol]3.6 mmol/LLow3.7 - 5.3 mmol/L [facility] [employer] Phone: protein [Mass/Vol]6.8 g/dL6.4 - 8.3 g/dLCincinnati Children'S Hospital Medical CenterPaymentOne Phone: sodium [Moles/Vol]140 mmol/L135 - 144 mmol/LMgenesis hospital [employer] Work Phone: Urea nitrogen [Mass/Vol]15 mg/dL8 - 23 mg/dLCincinnati Children'S Hospital Medical CenterPaymentOne Phone: cBC Auto DifferentialOrdered By: Raymundo Luque on [id number] Eos #0.00[facility] CenterPaymentOne Phone: absolute Immature Granulocyte1.22HighCincinnati Children'S Hospital Medical CenterPaymentOne Phone: absolute Lymph #4.28HighCincinnati Children'S Hospital Medical CenterPaymentOne Phone: absolute [place] #0.31[facility]Payment[facility] Phone: basophils (Bld) [#/Vol]0.15 10*3/uLCincinnati Children'S Hospital Medical CenterPaymentOne Phone: basophils/100 WBC (Bld)1 %0 - 2 %[facility] Phone: differential TypeNOT REPORTEDCincinnati Children'S Hospital Medical CenterPaymentOne Phone: eosinophils/100 WBC (Bld)0 %Low1 - 4 %[facility] Phone: erythrocyte distribution width (RBC) [Ratio]21.0 %High 11.8 - 14.4 %[facility] Phone: Hematocrit (Bld) [Volume fraction]33.8 %Low36.3 - 47.1 %[facility] Phone: Hemoglobin (Bld) [Mass/Vol]10.0 g/dLLow11.9 - 15.1 g/dLCincinnati Children'S Hospital Medical CenterPaymentOne Phone: Immature granulocytes/100 WBC (Bld)8 %Trii7PsbmjPaymentOne Phone: Interpretation and review of laboratory results AbnormalCincinnati Children'S Hospital Medical CenterPaymentOne Phone: lymphocytes/100 WBC (Bld)28 %24 - 43 %[facility] HospitalN[facility] Phone: MCH (RBC) [Entitic mass]23.4 pgLow25.2 - 33.5 pgCincinnati Children'S Hospital Medical CenterPaymentOne Phone: MCHC (RBC) [Mass/Vol]29.6 g/dL28.4 - 34.8 g/dLCincinnati Children'S Hospital Medical CenterPaymentOne Phone: MCV (RBC) [Entitic vol]79.0 fLLow82.6 - 102.9 fLCincinnati Children'S Hospital Medical CenterPaymentOne Phone: Monocytes/100 WBC (Bld)2 %Low3 - 12 %[facility] HospitalN[facility] EnergyH[facility] Phone: Morphology Pilo (Bld) [Interp]Normal ANISOCYTOSIS PRESENTCincinnati Children'S Hospital Medical CenterPaymentOne Phone: NRBC Automated0.1High0.0 per 100 WBCCincinnati Children'S Hospital Medical CenterPaymentOne Phone: platelet EstimateNOT REPORTEDCincinnati Children'S Hospital [facility] CenterPaymentOne Phone: platelet mean volume (Bld) [Entitic vol]9.7 fL8.1 - 13.5 fLCincinnati Children'S Hospital Medical CenterPaymentOne Phone: platelets (Bld) [#/Vol]181 10*3/uLCincinnati Children'S Hospital Medical CenterPaymentOne Phone: RBC (Bld) [#/Vol]4.28 10*6/uL3.95 - 5.11 m/uLCincinnati Children'S Hospital Medical CenterPaymentOne Phone: rBC morphology finding Nom (Bld)NOT REPORTEDCincinnati Children'S Hospital [facility] CenterPaymentOne Phone: segmented neutrophils/100 WBC (Bld)61 %36 - 65 %[facility] [employer] Phone: segs Absolute9.34HighWood County Hospital [employer] Phone: WBC (Bld) [#/Vol]15.3 10*3/uLHighCincinnati Children'S Hospital Medical CenterPaymentOne Phone: WBC MorphologyNOT REPORTEDWood County Hospital [employer] Phone: cEAOrdered By: Raymundo Luque on [id number] ng/mLHigh<3.9[facility] [employer] Phone: comment on above:The Andres ECLIA assay is used. Results obtained with different assay methods cannot be used interchangeably. Interpretation and review of laboratory resultsAbnormBanner Casa Grande Medical CenterPaymentOne Phone: comprehensive Metabolic PanelOrdered By: Raymundo Rashid on [id number] [Mass/Vol]3.8 g/dL3.5 - 5.2 g/dLCincinnati Children'S Hospital Medical CenterPaymentOne Phone: albumin/Globulin [Mass ratio]1.2 {ratio}[facility] [employer] Phone: aLP [Catalytic activity/Vol]252 U/LHigh35 - 104 U/L [facility] [employer] Phone: aLT [Catalytic activity/Vol]20 U/L5 - 33 U/LMgenesis hospital [employer] Phone: anion gap [Moles/Vol]13 mmol/L9 - 17 mmol/LMpremier health miami valley hospital southy [employer] Phone: aST [Catalytic activity/Vol]28 U/L<32[facility] CenterPaymentOne Phone: bilirubin [Mass/Vol]0.56 mg/dL0.3 - 1.2 mg/dLCincinnati Children'S Hospital Medical CenterPaymentOne Phone: bun/Cre Xnhob21Bhnge [employer] Phone: calcium [Mass/Vol]9.2 mg/dL8.6 - 10.4 mg/dLCincinnati Children'S Hospital Medical CenterPaymentOne Phone: chloride [Moles/Vol]104 mmol/L98 - 107 mmol/LMpremier health miami valley hospital southy [employer] Phone: cO2 [Moles/Vol]23 mmol/L20 - 31 mmol/LMpremier health mi[facility] southy [employer] Phone: creatinine [Mass/Vol]1.08 mg/dLHigh0.5 - 0.9 mg/dL [facility] [employer] Phone: GFR >60>60 mL/minCincinnati Children'S Hospital Medical CenterPaymentOne Phone: GFR CommentCincinnati Children'S Hospital Medical CenterPaymentOne Phone: comment on above:Average GFR for 60-69 years old: 85 mL/min/1.73sq m Chronic Kidney Disease: <60 mL/min/1.73sq m Kidney failure: <15 mL/min/1.73sq m eGFR calculated using average adult body mass. Additional eGFR calculator available at: http://www.[employer]/multiple_crcl_2012.htm GFR Non- Kdcubdoy71 mL/minLow>60[facility] CenterPaymentOne Phone: GFR StagingCincinnati Children'S Hospital Medical CenterPaymentOne Phone: comment on above:Stage 1: Some kidney damage normal GFR Stage 2: Mild kidney damage GFR 60-89 Stage 3: Moderate kidney damage GFR 30-59 Stage 4: Severe kidney damage GFR 15-29 Stage 5: Severe kidney damage GFR <15 ESRD - chronic treatment by dialysis or transplant Glucose [Mass/Vol]143 mg/yJGbjp41 - 99 mg/dLCincinnati Children'S Hospital Medical CenterPaymentOne Phone: Interpretation and review of laboratory results AbnormalCincinnati Children'S Hospital Medical CenterPaymentOne Phone: potassium [Moles/Vol]3.7 mmol/L3.7 - 5.3 mmol/LMpremier health miami [facility] hospital southy [employer] Phone: protein [Mass/Vol]7.0 g/dL6.4 - 8.3 g/dLCincinnati Children'S Hospital Medical CenterPaymentOne Phone: sodium [Moles/Vol]140 mmol/L135 - 144 mmol/LMercy [employer] Work Phone: Urea nitrogen [Mass/Vol]18 mg/dL8 - 23 mg/dLWood County Hospital [employer] Work Phone: cBC Auto Differentialon [id number] (Bld) [#/Vol]0.12 10*3/[facility] [place], KYBasophils/100 WBC (Bld)2 %0 - 2 %[facility], KYDifferential TypeNOT REPORTEDSalem City Hospital [place], KYEosinophils (Bld) [#/Vol]0.29 10*3/[facility] [place], KYEosinophils/100 WBC (Bld)5 %High1 - 4 % [facility], KYErythrocyte distribution width (RBC) [Ratio]18.7 %High11.8 - 14.4 %[facility], KYHematocrit (Bld) [Volume fraction]34.4 %Low36.3 - 47.1 %[facility], KYHemoglobin (Bld) [Mass/Vol]10.1 g/dLLow11.9 - 15.1 g/dLCherrington Hospital, KYImmature granulocytes (Bld) [#/Vol]0.12 10*3/[facility], KYImmature granulocytes (Bld) [#/Vol]2 %Jvsk9GuscgCherrington Hospital, [place] Interpretation and review of laboratory resultsAbnormalC[facility]rington Hospital, [place] Lymphocytes (Bld) [#/Vol]4.11 10*3/uLTrumbull Memorial Hospital [place], KYLymphocytes/100 WBC (Bld)71 %High24 - 43 %[facility], KYMCH (RBC) [Entitic mass]22.7 pgLow 25.2 - 33.5 pgCherrington Hospital, KYMCHC (RBC) [Mass/Vol]29.4 g/dL28.4 - 34.8 g/dL [facility], KYMCV (RBC) [Entitic vol]77.5 fLLow82.6 - 102.9 fLWood County Hospital Health- [place], KYMonocytes (Bld) [#/Vol]0.35 10*3/uLWood County Hospital [facility]- [place], [place] Monocytes/100 WBC (Bld)6 %3 - 12 %[facility]- [place], KYMorphology Pilo (Bld) [Interp]NormalWood County Hospital Health- [place], KYPlatelet mean volume (Bld) [Entitic vol]9.5 fL 8.1 - 13.5 fLWood County Hospital Health- [place], KYPlatelets (Bld) [#/Vol]292 10*3/uLWood County Hospital [facility]- [place], KYPlatelets (Bld) [#/Vol]NOT REPORTEDC[facility]- [place], KYRBC (Bld) [#/Vol] 4.44 10*6/uL3.95 - 5.11 m/uLWood County Hospital Health- [place], KYRBC morphology finding Nom (Bld) NOT REPORTEDCinc[facility]- [place], KYSegmented neutrophils/100 WBC (Bld)14 %Low36 - 65 %[facility]- [place], KYSegs Absolute0.81LowCincinnati Va Medical Center- [place], KYWBC (Bld) [#/Vol]0.0 10*3/uL0.0 per 100 WBCCincinnati Va [facility] Center- [place], KYWBC (Bld) [#/Vol]5.8 10*3/uLWood County Hospital [facility]- [place], KYWBC MorphologyNOT REPORTEDWood [facility] Hospital [facility]- [place], [place] Comprehensive Metabolic Panelon [id number] [Mass/Vol]3.8 g/dL3.5 - 5.2 g/dLCincinnati Va Medical Center- [place], KYAlbumin/Globulin [Mass ratio]1.2 {ratio}[facility]- [place], KYALP [Catalytic activity/Vol]142 U/LHigh35 - 104 U/LM[facility]- [place], KYALT [Catalytic activity/Vol]20 U/L5 - 33 U/LM[facility]- [place], KYAnion gap [Moles/Vol]14 mmol/L9 - 17 mmol/LM[facility]- [place], KYAST [Catalytic activity/Vol]29 U/L<32[facility]- [place], KYBilirubin Ql (U)0.63 mg/dL0.3 - 1.2 mg/dLCincinnati Va Medical Center- [place], KYBun/Cre Lovwe19GfccCwtpy Health- [place], KYCalcium [Mass/Vol]9.3 mg/dL8.6 - 10.4 mg/dLCherrington Hospital, KYChloride [Moles/Vol]104 mmol/L98 - 107 mmol/LMBethesda North Hospital, KYCO2 [Moles/Vol]23 mmol/L20 - 31 mmol/L [facility], KYCreatinine [Mass/Vol]0.88 mg/dL0.5 - 0.9 mg/dLCherrington Hospital, KYGFR >60>60 mL/minCherrington Hospital, KYGFR Non->60>60 mL/minC[facility]rington Hospital, KYGlucose [Mass/Vol]152 mg/sIPrjp70 - 99 mg/dLCherrington Hospital, KYInterpretation and review of laboratory resultsAbnormal [facility], KYPotassium [Moles/Vol]3.9 mmol/L3.7 - 5.3 mmol/[facility], KYProtein [Mass/Vol]7.0 g/dL6.4 - 8.3 g/dLCherrington Hospital, KYSodium [Moles/Vol]141 mmol/L135 - 144 mmol/LMBethesda North Hospital, KYUrea nitrogen [Mass/Vol]23 mg/dL8 - 23 mg/dLCherrington Hospital, KYMetabolic Panelon 03-12-2019 GFR/1.73 sq M predicted among non-blacks MDRD (S/P/Bld) [Vol rate/Area][facility], KYComment on above:Stage 1: Some kidney damage normal GFR Stage 2: Mild kidney damage GFR 60-89 Stage 3: Moderate kidney damage GFR 30-59 Stage 4: Severe kidney damage GFR 15-29 Stage 5: Severe kidney damage GFR <15 ESRD - chronic treatment by dialysis or transplant Average GFR for 60-69 years old: 85 mL/min/1.73sq m Chronic Kidney Disease: <60 mL/min/1.73sq m Kidney failure: <15 mL/min/1.73sq m eGFR calculated using average adult body mass. Additional eGFR calculator available at: http://www.SolFocus.Xpliant/multiple_crcl_2012.htm CBC Auto Differentialon [id number] (Bld) [#/Vol]0.04 10*3/[facility], KYBasophils/100 WBC (Bld)1 %0 - 2 %[facility], MADifferential TypeNOT REPORTEDCherrington Hospital, KYEosinophils (Bld) [#/Vol]0.04 10*3/[facility], KYEosinophils/100 WBC (Bld)1 %1 - 4 %[facility], MAErythrocyte distribution width (RBC) [Ratio]18.2 %High11.8 - 14.4 %[facility], [place] Hematocrit (Bld) [Volume fraction]33.2 %Low36.3 - 47.1 %[facility], [place] Hemoglobin (Bld) [Mass/Vol]10.0 g/dLLow11.9 - 15.1 g/dLCherrington Hospital, [place] Immature granulocytes (Bld) [#/Vol]0 %0[facility], MAImmature granulocytes (Bld) [#/Vol]0.00 10*3/[facility], MAInterpretation and review of laboratory resultsAbnormalC[facility]rington Hospital, MALymphocytes (Bld) [#/Vol]3.16 10*3/[facility], KYLymphocytes/100 WBC (Bld)77 %High24 - 43 %[facility], MAMCH (RBC) [Entitic mass]23.2 pgLow25.2 - 33.5 pgCherrington Hospital, MAMCHC (RBC) [Mass/Vol]30.1 g/dL28.4 - 34.8 g/dLCherrington Hospital, MAMCV (RBC) [Entitic vol]77.0 fLLow82.6 - 102.9 fLCherrington Hospital, MAMonocytes (Bld) [#/Vol]0.33 10*3/[facility], KYMonocytes/100 WBC (Bld)8 %3 - 12 %[facility], MAMorphology Pilo (Bld) [Interp]NormalCherrington Hospital, TOMPlatelet mean volume (Bld) [Entitic vol]10.0 fL8.1 - 13.5 fLWood County Hospital [facility]- [place], TOMPlatelets (Bld) [#/Vol]185 10*3/uLWood County Hospital [facility]- [place], TOMPlatelets (Bld) [#/Vol]NOT REPORTED [facility]- [place], TOMRBC (Bld) [#/Vol]4.31 10*6/uL3.95 - 5.11 m/uLCincinnati Va Medical Center- [place], TOMRBC morphology finding Nom (Bld)NOT REPORTEDCinc[facility]- [place], TOMSegmented neutrophils/100 WBC (Bld)13 %Low36 - 65 %[facility]- [place], TOMSegs Absolute0.53 LowCincinnati Va Medical Center- [place], TOMWBC (Bld) [#/Vol]0.0 10*3/uL0.0 per 100 WBCCincinnati Va [facility] Center- [place], TOMWBC (Bld) [#/Vol]4.1 10*3/uLCinc[facility] Va [facility] Center- [place], TOMWBC MorphologyNOT REPORTED [facility]- [place], TOMCEAon [id number] ng/mLHigh<3.9[facility]- [place], TOM Comment on above:The Andres ECLIA assay is used. Results obtained with different assay methods cannot be used interchangeably. Interpretation and review of laboratory resultsAbnormalCinc[facility]- [place], T[place] Comprehensive Metabolic Panelon [id number] [Mass/Vol]3.9 g/dL3.5 - 5.2 g/dLCincinnati Va Medical Center- [place], TOMAlbumin/Globulin [Mass ratio]1.3 {ratio}[facility]- [place], KYALP [Catalytic activity/Vol]134 U/LHigh35 - 104 U/LMSt. [facility]- [place], KYALT [Catalytic activity/Vol]19 U/L5 - 33 U/LM[facility]- [place], KYAnion gap [Moles/Vol]15 mmol/L9 - 17 mmol/LMgenesis [facility]- [place], KYAST [Catalytic activity/Vol]23 U/L<32[facility]- [place], KYBilirubin Ql (U)0.90 mg/dL0.3 - 1.2 mg/dLCincinnati Va Medical Center- [place], KYBun/Cre Iglwv38ZkvcSzfan Health- [place], KYCalcium [Mass/Vol]9.5 mg/dL8.6 - 10.4 mg/dLCherrington Hospital, KYChloride [Moles/Vol]102 mmol/L98 - 107 mmol/LMBethesda North Hospital, KYCO2 [Moles/Vol]22 mmol/L20 - 31 mmol/L [facility], KYCreatinine [Mass/Vol]0.91 mg/dLHigh0.5 - 0.9 mg/dLCherrington Hospital, KYGFR >60>60 mL/minCherrington Hospital, KYGFR Non- >60>60 mL/minC[facility]rington Hospital, KYGlucose [Mass/Vol]158 mg/dLHigh 70 - 99 mg/dLCherrington Hospital, KYInterpretation and review of laboratory results AbnormalCherrington Hospital, KYPotassium [Moles/Vol]3.6 mmol/LLow3.7 - 5.3 mmol/L [facility], KYProtein [Mass/Vol]6.9 g/dL6.4 - 8.3 g/dLCherrington Hospital, [place] Sodium [Moles/Vol]139 mmol/L135 - 144 mmol/LMBethesda North Hospital, KYUrea nitrogen [Mass/Vol]22 mg/dL8 - 23 mg/dLCherrington Hospital, KYMetabolic Panelon 03-06-2019 GFR/1.73 sq M predicted among non-blacks MDRD (S/P/Bld) [Vol rate/Area][facility], KYComment on above:Average GFR for 60-69 years old: 85 mL/min/1.73sq m Chronic Kidney Disease: <60 mL/min/1.73sq m Kidney failure: <15 mL/min/1.73sq m eGFR calculated using average adult body mass. Additional eGFR calculator available at: http://www.SolFocus.Xpliant/multiple_crcl_2012.htm Stage 1: Some kidney damage normal GFR Stage 2: Mild kidney damage GFR 60-89 Stage 3: Moderate kidney damage GFR 30-59 Stage 4: Severe kidney damage GFR 15-29 Stage 5: Severe kidney damage GFR <15 ESRD - chronic treatment by dialysis or transplant CBC Auto Differentialon [id number] (Bld) [#/Vol]0.00 10*3/[facility], KYBasophils/100 WBC (Bld)0 %0 - 2 %[facility], MADifferential TypeNOT REPORTEDCherrington Hospital, KYEosinophils (Bld) [#/Vol]0.11 10*3/[facility], KYEosinophils/100 WBC (Bld)3 %1 - 4 %[facility], MAErythrocyte distribution width (RBC) [Ratio]17.3 %High11.8 - 14.4 %[facility], [place] Hematocrit (Bld) [Volume fraction]31.7 %Low36.3 - 47.1 %[facility], [place] Hemoglobin (Bld) [Mass/Vol]9.7 g/dLLow11.9 - 15.1 g/dLCherrington Hospital, [place] Immature granulocytes (Bld) [#/Vol]0 %0[facility], MAImmature granulocytes (Bld) [#/Vol]0.00 10*3/[facility], MAInterpretation and review of laboratory resultsAbnormalC[facility] Hospital, KYLymphocytes (Bld) [#/Vol]2.30 10*3/[facility], KYLymphocytes/100 WBC (Bld)62 %High24 - 43 %[facility], MAMCH (RBC) [Entitic mass]23.2 pgLow25.2 - 33.5 pgCherrington Hospital, MAMCHC (RBC) [Mass/Vol]30.6 g/dL28.4 - 34.8 g/dLCherrington Hospital, MAMCV (RBC) [Entitic vol]75.8 fLLow82.6 - 102.9 fLCherrington Hospital, MAMonocytes (Bld) [#/Vol]0.22 10*3/[facility], KYMonocytes/100 WBC (Bld)6 %3 - 12 %[facility], MAMorphology Pilo (Bld) [Interp]NormalCherrington Hospital, MAPlatelet mean volume (Bld) [Entitic vol]9.5 fL8.1 - 13.5 fLWood [facility]- [place], TOMPlatelets (Bld) [#/Vol]NOT REPORTEDCincinnati [facility]- [place], TOMPlatelets (Bld) [#/Vol]153 10*3/uL [facility]- OHTOMRBC (Bld) [#/Vol]4.18 10*6/uL3.95 - 5.11 m/uLCincinnati Va Medical Center- [place], TOMRBC morphology finding Nom (Bld)NOT REPORTEDCincinnati Va Medical Center- OHTOMSegmented neutrophils/100 WBC (Bld)29 %Low36 - 65 %[facility]- [place], TOMSegs Absolute1.07 LowCincinnati Va Medical Center- [place], TOMWBC (Bld) [#/Vol]3.7 10*3/uLCincinnati Va Medical Center- [place], TOMWBC (Bld) [#/Vol]0.0 10*3/uL0.0 per 100 WBCCincinnati Va Medical Center- [place], TOMWBC MorphologyNOT REPORTED [facility]- OHTOMCEAon [id number] ng/mLHigh<3.9[facility]- [place], TOM Comment on above:The Andres ECLIA assay is used. Results obtained with different assay methods cannot be used interchangeably. Interpretation and review of laboratory resultsAbnormalCincinnati Va [facility] Center- [place], TOM Comprehensive Metabolic Panelon [id number] [Mass/Vol]3.7 g/dL3.5 - 5.2 g/dLCincinnati Va Medical Center- [place], TOMAlbumin/Globulin [Mass ratio]1.3 {ratio}[facility]- [place], TOMALP [Catalytic activity/Vol]129 U/LHigh35 - 104 U/LMSt. [facility]- [place], TOMALT [Catalytic activity/Vol]17 U/L5 - 33 U/LM[facility]- [place], TOMAnion gap [Moles/Vol]15 mmol/L9 - 17 mmol/LMgenesis [facility]- [place], TOMAST [Catalytic activity/Vol]26 U/L<32[facility]- [place], TOMBilirubin Ql (U)0.61 mg/dL0.3 - 1.2 mg/dLCincinnati Va Medical Center- [place], TOMBun/Cre Czxuf58LfpeqCherrington Hospital, KYCalcium [Mass/Vol] 9.3 mg/dL8.6 - 10.4 mg/dLCherrington Hospital, KYChloride [Moles/Vol]105 mmol/L98 - 107 mmol/LMBethesda North Hospital, KYCO2 [Moles/Vol]21 mmol/L20 - 31 mmol/LMBethesda North Hospital, KYCreatinine [Mass/Vol]0.83 mg/dL0.5 - 0.9 mg/dLCherrington Hospital, [place] GFR >60>60 mL/minCherrington Hospital, KYGFR Non->60 >60 mL/minC[facility]rington Hospital, KYGlucose [Mass/Vol]154 mg/eZVtyv39 - 99 mg/dLCherrington Hospital, KYInterpretation and review of laboratory resultsAbnormalC[facility] Hospital, KYPotassium [Moles/Vol]3.5 mmol/LLow3.7 - 5.3 mmol/LMBethesda North Hospital, KYProtein [Mass/Vol]6.6 g/dL6.4 - 8.3 g/dLCherrington Hospital, KYSodium [Moles/Vol]141 mmol/L135 - 144 mmol/LMBethesda North Hospital, KYUrea nitrogen [Mass/Vol]15 mg/dL8 - 23 mg/dLCherrington Hospital, KYMetabolic Panelon 02-20-2019 GFR/1.73 sq M predicted among non-blacks MDRD (S/P/Bld) [Vol rate/Area][facility], KYComment on above:Stage 1: Some kidney damage normal GFR Stage 2: Mild kidney damage GFR 60-89 Stage 3: Moderate kidney damage GFR 30-59 Stage 4: Severe kidney damage GFR 15-29 Stage 5: Severe kidney damage GFR <15 ESRD - chronic treatment by dialysis or transplant Average GFR for 60-69 years old: 85 mL/min/1.73sq m Chronic Kidney Disease: <60 mL/min/1.73sq m Kidney failure: <15 mL/min/1.73sq m eGFR calculated using average adult body mass. Additional eGFR calculator available at: http://www.[employer].Xpliant/multiple_crcl_2012.htm CBC Auto Differentialon [id number] (Bld) [#/Vol]0.07 10*3/[facility], KYBasophils/100 WBC (Bld)1 %0 - 2 %[facility], MADifferential TypeNOT REPORTEDC[facility]rington Hospital, KYEosinophils (Bld) [#/Vol]0.15 10*3/[facility], KYEosinophils/100 WBC (Bld)3 %1 - 4 %[facility], MAErythrocyte distribution width (RBC) [Ratio]16.3 %High11.8 - 14.4 %[facility], [place] Hematocrit (Bld) [Volume fraction]34.3 %Low36.3 - 47.1 %[facility], [place] Hemoglobin (Bld) [Mass/Vol]10.2 g/dLLow11.9 - 15.1 g/dLCherrington Hospital, [place] Immature granulocytes (Bld) [#/Vol]5 %Qeow2BytghCherrington Hospital, MAImmature granulocytes (Bld) [#/Vol]0.26 10*3/[facility], KYInterpretation and review of laboratory resultsAbnormBlanchard Valley Health System, KYLymphocytes (Bld) [#/Vol]3.34 10*3/[facility], KYLymphocytes/100 WBC (Bld)62 %High24 - 43 %[facility], MAMCH (RBC) [Entitic mass]22.7 pgLow25.2 - 33.5 pgCherrington Hospital, MAMCHC (RBC) [Mass/Vol]29.7 g/dL28.4 - 34.8 g/dLCherrington Hospital, [place] MCV (RBC) [Entitic vol]76.4 fLLow82.6 - 102.9 fLCherrington Hospital, KYMonocytes (Bld) [#/Vol]0.56 10*3/[facility], KYMonocytes/100 WBC (Bld)10 %3 - 12 % [facility], MAPlatelet mean volume (Bld) [Entitic vol]9.3 fL8.1 - 13.5 fL [facility]- [place], KYPlatelets (Bld) [#/Vol]300 10*3/uLMercy Health- [place], [place] Platelets (Bld) [#/Vol]NOT REPORTED[facility]- [place], KYRBC (Bld) [#/Vol]4.49 10*6/uL3.95 - 5.11 m/uLMer Health- [place], KYRBC morphology finding Nom (Bld)NOT REPORTEDMer Health- [place], KYSegmented neutrophils/100 WBC (Bld)19 %Low36 - 65 % [facility]- [place], KYSegs Absolute1.01LowMer Health- [place], KYWBC (Bld) [#/Vol]5.4 10*3/uLMercy Health- [place], KYWBC (Bld) [#/Vol]0.0 10*3/uL0.0 per 100 WBCMercy Health- [place], KYWBC MorphologyNOT REPORTEDWood [facility]- [place], KYComprehensive Metabolic Panelon [id number] [Mass/Vol]3.8 g/dL3.5 - 5.2 g/dLMercy Health- [place], KYAlbumin/Globulin [Mass ratio]1.2 {ratio}[facility]- [place], KYALP [Catalytic activity/Vol]133 U/LHigh35 - 104 U/LMercy [facility]- [place], KYALT [Catalytic activity/Vol]22 U/L5 - 33 U/LMercy Health- [place], KYAnion gap [Moles/Vol]13 mmol/L9 - 17 mmol/LMercy Health- [place], KYAST [Catalytic activity/Vol]27 U/L<32[facility] [place], KYBilirubin Ql (U)0.47 mg/dL0.3 - 1.2 mg/dLMercy Health- [place], KYBun/Cre Iopnh64Zhtuf Health- [place], KYCalcium [Mass/Vol] 9.1 mg/dL8.6 - 10.4 mg/dLMercy Health- [place], KYChloride [Moles/Vol]103 mmol/L98 - 107 mmol/LMercy [facility]- [place], KYCO2 [Moles/Vol]21 mmol/L20 - 31 mmol/LMercy [facility]- [place], KYCreatinine [Mass/Vol]0.84 mg/dL0.5 - 0.9 mg/dLCherrington Hospital, [place] GFR >60>60 mL/minCherrington Hospital, KYGFR Non->60 >60 mL/minC[facility] Hospital, KYGlucose [Mass/Vol]159 mg/vGXdzl35 - 99 mg/dLCherrington Hospital, KYInterpretation and review of laboratory resultsAbnormalC[facility] Hospital, KYPotassium [Moles/Vol]3.5 mmol/LLow3.7 - 5.3 mmol/LMBethesda North Hospital, KYProtein [Mass/Vol]6.9 g/dL6.4 - 8.3 g/dLCher[facility], KYSodium [Moles/Vol]137 mmol/L135 - 144 mmol/LMBethesda North Hospital, KYUrea nitrogen [Mass/Vol]14 mg/dL8 - 23 mg/dLCherrington Hospital, KYMetabolic Panelon 02-06-2019 GFR/1.73 sq M predicted among non-blacks MDRD (S/P/Bld) [Vol rate/Area][facility], KYComment on above:Average GFR for 60-69 years old: 85 mL/min/1.73sq m Chronic Kidney Disease: <60 mL/min/1.73sq m Kidney failure: <15 mL/min/1.73sq m eGFR calculated using average adult body mass. Additional eGFR calculator available at: http://www.SolFocus.Xpliant/multiple_crcl_2012.htm Stage 1: Some kidney damage normal GFR Stage 2: Mild kidney damage GFR 60-89 Stage 3: Moderate kidney damage GFR 30-59 Stage 4: Severe kidney damage GFR 15-29 Stage 5: Severe kidney damage GFR <15 ESRD - chronic treatment by dialysis or transplant CBC Auto Differentialon [id number] (Bld) [#/Vol]0.00 10*3/[facility], KYBasophils/100 WBC (Bld)0 %0 - 2 %[facility], KYDifferential TypeNOT REPORTEDC[facility] Hospital, KYEosinophils (Bld) [#/Vol]0.00 10*3/[facility], KYEosinophils/100 WBC (Bld)0 %Low1 - 4 %[facility], [place] Erythrocyte distribution width (RBC) [Ratio]16.0 %High11.8 - 14.4 %[facility], TOMHematocrit (Bld) [Volume fraction]33.5 %Low36.3 - 47.1 %[facility], MAHemoglobin (Bld) [Mass/Vol]10.0 g/dLLow11.9 - 15.1 g/dLCherrington Hospital, [place] Immature granulocytes (Bld) [#/Vol]0 %0[facility], MAImmature granulocytes (Bld) [#/Vol]0.00 10*3/[facility], TOMInterpretation and review of laboratory resultsAbnormalC[facility] Hospital, MALymphocytes (Bld) [#/Vol]3.19 10*3/[facility], TOMLymphocytes/100 WBC (Bld)76 %High24 - 43 %[facility], MAMCH (RBC) [Entitic mass]23.0 pgLow25.2 - 33.5 pgCherrington Hospital, MAMCHC (RBC) [Mass/Vol]29.9 g/dL28.4 - 34.8 g/dLCherrington Hospital, MAMCV (RBC) [Entitic vol]77.2 fLLow82.6 - 102.9 fLCherrington Hospital, TOMMonocytes (Bld) [#/Vol]0.21 10*3/[facility], TOMMonocytes/100 WBC (Bld)5 %3 - 12 %[facility], TOMMorphology Pilo (Bld) [Interp]NormalC[facility] Hospital, TOMPlatelet mean volume (Bld) [Entitic vol]9.4 fL8.1 - 13.5 fLCherrington Hospital, KYPlatelets (Bld) [#/Vol]173 10*3/[facility], KYPlatelets (Bld) [#/Vol]NOT REPORTED [facility], TOMRBC (Bld) [#/Vol]4.34 10*6/uL3.95 - 5.11 m/uLMercy Health- [place], KYRBC morphology finding Nom (Bld)NOT REPORTEDCincinnati Children'[facility] Centercy [facility]- [place], KYSegmented neutrophils/100 WBC (Bld)19 %Low36 - 65 %[facility]- [place], KYSegs Absolute0.80 LowMercy Health- [place], KYWBC (Bld) [#/Vol]0.0 10*3/uL0.0 per 100 WBCMercy Health- [place], KYWBC (Bld) [#/Vol]4.2 10*3/uLMercy Health- [place], KYWBC MorphologyNOT REPORTED [facility]jason [facility]- [place], KYCEAon [id number] ng/mLHigh<3.9[facility]- [place], [place] Comment on above:The Andres ECLIA assay is used. Results obtained with different assay methods cannot be used interchangeably. Interpretation and review of laboratory resultsAbnormalMer Health- [place], [place] Comprehensive Metabolic Panelon [id number] [Mass/Vol]3.9 g/dL3.5 - 5.2 g/dLCincinnati Children'S Hospital Medical Centercy [facility]- [place], KYAlbumin/Globulin [Mass ratio]1.3 {ratio}[facility]- [place], KYALP [Catalytic activity/Vol]116 U/LHigh35 - 104 U/LMercy [facility]- [place], KYALT [Catalytic activity/Vol]14 U/L5 - 33 U/LMercy [facility]- [place], KYAnion gap [Moles/Vol]14 mmol/L9 - 17 mmol/LMercy [facility]- [place], KYAST [Catalytic activity/Vol]19 U/L<32[facility]- [place], KYBilirubin Ql (U)0.63 mg/dL0.3 - 1.2 mg/dLMercy Health- [place], KYBun/Cre Injbj56Mdhfn [facility]- [place], KYCalcium [Mass/Vol] 9.2 mg/dL8.6 - 10.4 mg/dLMercy Health- [place], KYChloride [Moles/Vol]105 mmol/L98 - 107 mmol/LMercy [facility]- [place], KYCO2 [Moles/Vol]22 mmol/L20 - 31 mmol/LMercy [facility]- [place], KYCreatinine [Mass/Vol]0.79 mg/dL0.5 - 0.9 mg/dLCherrington Hospital, [place] GFR >60>60 mL/minC[facility] Hospital, KYGFR Non->60 >60 mL/minC[facility] Hospital, KYGlucose [Mass/Vol]167 mg/aUQhpo51 - 99 mg/dLCherrington Hospital, KYInterpretation and review of laboratory resultsAbnormalC[facility] Hospital, KYPotassium [Moles/Vol]3.4 mmol/LLow3.7 - 5.3 mmol/LMBethesda North Hospital, KYProtein [Mass/Vol]6.8 g/dL6.4 - 8.3 g/dLCher[facility] Hospital, KYSodium [Moles/Vol]141 mmol/L135 - 144 mmol/LMBethesda North Hospital, KYUrea nitrogen [Mass/Vol]14 mg/dL8 - 23 mg/dLCherrington Hospital, KYMetabolic Panelon 01-30-2019 GFR/1.73 sq M predicted among non-blacks MDRD (S/P/Bld) [Vol rate/Area][facility], KYComment on above:Average GFR for 60-69 years old: 85 mL/min/1.73sq m Chronic Kidney Disease: <60 mL/min/1.73sq m Kidney failure: <15 mL/min/1.73sq m eGFR calculated using average adult body mass. Additional eGFR calculator available at: http://www.SolFocus.Xpliant/multiple_crcl_2012.htm Stage 1: Some kidney damage normal GFR Stage 2: Mild kidney damage GFR 60-89 Stage 3: Moderate kidney damage GFR 30-59 Stage 4: Severe kidney damage GFR 15-29 Stage 5: Severe kidney damage GFR <15 ESRD - chronic treatment by dialysis or transplant CBC Auto Differentialon [id number] (Bld) [#/Vol]10*3/[facility], KYBasophils/100 WBC (Bld)0 %0 - 2 %[facility], KYDifferential TypeNOT REPORTEDC[facility]rington Hospital, KYEosinophils (Bld) [#/Vol]0.15 10*3/[facility], KYEosinophils/100 WBC (Bld)4 %1 - 4 %[place], KYErythrocyte distribution width (RBC) [Ratio]15.7 %High11.8 - 14.4 %[place], [place] Hematocrit (Bld) [Volume fraction]32.8 %Low36.3 - 47.1 %[place], [place] Hemoglobin (Bld) [Mass/Vol]9.8 g/dLLow11.9 - 15.1 g/dLStaten [place], [place] Immature granulocytes (Bld) [#/Vol]0 %0[facility] MAImmature granulocytes (Bld) [#/Vol]10*3/uLStat[place], KYInterpretation and review of laboratory resultsAbnormalC[facility] Hospital MALymphocytes (Bld) [#/Vol]2.39 10*3/uLCherrington HospitalTOMLymphocytes/100 WBC (Bld)55 %High24 - 43 %[place], KYMCH (RBC) [Entitic mass]23.1 pgLow25.2 - 33.5 pgStat[place], KYMCHC (RBC) [Mass/Vol]29.9 g/dL28.4 - 34.8 g/dLStaten [place], KYMCV (RBC) [Entitic vol] 77.4 fLLow82.6 - 102.9 fLCherrington HospitalTOMMonocytes (Bld) [#/Vol]0.36 10*3/uL [facility] HospitalTOMMonocytes/100 WBC (Bld)8 %3 - 12 %[place], [place] Platelet mean volume (Bld) [Entitic vol]9.2 fL8.1 - 13.5 fLStat[place], [place] Platelets (Bld) [#/Vol]NOT REPORTEDStat[place], KYPlatelets (Bld) [#/Vol] 207 10*3/uLCherrington HospitalTOMRBC (Bld) [#/Vol]4.24 10*6/uL3.95 - 5.11 m/uL [place], KYRBC morphology finding Nom (Bld)NOT REPORTEDMer[facility]- [place], KYSegmented neutrophils/100 WBC (Bld)33 %Low36 - 65 %[facility]- [place], [place] Segs Absolute1.42LowMer Health- [place], KYWBC (Bld) [#/Vol]4.3 10*3/uLMercy Health- [place], KYWBC (Bld) [#/Vol]0.0 10*3/uL0.0 per 100 WBCWood County Hospital Health- [place], KYWBC MorphologyNOT REPORTEDMer Health- [place], KYCEAon [id number] ng/mLHigh<3.9 [facility]- [place], KYComment on above:The Andres ECLIA assay is used. Results obtained with different assay methods cannot be used interchangeably. Interpretation and review of laboratory resultsAbnormalWood County Hospital [facility]- [place], [place] Comprehensive Metabolic Panelon [id number] [Mass/Vol]3.9 g/dL3.5 - 5.2 g/dLWood County Hospital [facility]- [place], KYAlbumin/Globulin [Mass ratio]1.3 {ratio}[facility]- [place], KYALP [Catalytic activity/Vol]119 U/LHigh35 - 104 U/LMercy Health- [place], KYALT [Catalytic activity/Vol]14 U/L5 - 33 U/LMpremier health miami [facility] southy [facility]- [place], KYAnion gap [Moles/Vol]16 mmol/L9 - 17 mmol/LMercy Health- [place], KYAST [Catalytic activity/Vol]20 U/L<32[facility]- [place], KYBilirubin Ql (U)0.39 mg/dL0.3 - 1.2 mg/dLCincinnati Children'S Hospital Medical Centercy [facility]- [place], KYBun/Cre Iphah85DqafNlkng Health- [place], KYCalcium [Mass/Vol]9.0 mg/dL8.6 - 10.4 mg/dLCincinnati Children'S Hospital Medical Centercy [facility]- [place], KYChloride [Moles/Vol]105 mmol/L98 - 107 mmol/LMercy [facility]- [place], KYCO2 [Moles/Vol]22 mmol/L20 - 31 mmol/L [facility]- [place], KYCreatinine [Mass/Vol]0.8 mg/dL0.5 - 0.9 mg/dLWood County Hospital [facility]- [place], KYGFR >60>60 mL/minCherrington Hospital, KYGFR Non->60>60 mL/minC[facility]rington Hospital, KYGlucose [Mass/Vol]148 mg/qTFgpv65 - 99 mg/dLCherrington Hospital, KYInterpretation and review of laboratory resultsAbnormal [facility], KYPotassium [Moles/Vol]3.7 mmol/L3.7 - 5.3 mmol/LMBethesda North Hospital, KYProtein [Mass/Vol]6.8 g/dL6.4 - 8.3 g/dLCher[facility] Hospital, KYSodium [Moles/Vol]143 mmol/L135 - 144 mmol/LMBethesda North Hospital, KYUrea nitrogen [Mass/Vol]17 mg/dL8 - 23 mg/dLCherrington Hospital, KYMetabolic Panelon 01-16-2019 GFR/1.73 sq M predicted among non-blacks MDRD (S/P/Bld) [Vol rate/Area][facility], KYComment on above:Average GFR for 60-69 years old: 85 mL/min/1.73sq m Chronic Kidney Disease: <60 mL/min/1.73sq m Kidney failure: <15 mL/min/1.73sq m eGFR calculated using average adult body mass. Additional eGFR calculator available at: http://www.[employer]/multiple_crcl_2012.htm Stage 1: Some kidney damage normal GFR Stage 2: Mild kidney damage GFR 60-89 Stage 3: Moderate kidney damage GFR 30-59 Stage 4: Severe kidney damage GFR 15-29 Stage 5: Severe kidney damage GFR <15 ESRD - chronic treatment by dialysis or transplant CBC Auto Differentialon [id number] (Bld) [#/Vol]0.03 10*3/[facility], KYBasophils/100 WBC (Bld)0 %0 - 2 %[facility], KYDifferential TypeNOT REPORTEDCherrington Hospital, KYEosinophils (Bld) [#/Vol]0.21 10*3/[facility], KYEosinophils/100 WBC (Bld)3 %1 - 4 %[facility], KYErythrocyte distribution width (RBC) [Ratio]15.6 %High11.8 - 14.4 %[place], [place] Hematocrit (Bld) [Volume fraction]33.6 %Low36.3 - 47.1 %[place], [place] Hemoglobin (Bld) [Mass/Vol]10.1 g/dLLow11.9 - 15.1 g/dLStaten [place], [place] Immature granulocytes (Bld) [#/Vol]0 %0[facility], MAImmature granulocytes (Bld) [#/Vol]0.03 10*3/[facility], MAInterpretation and review of laboratory resultsAbnormalC[facility] Hospital, MALymphocytes (Bld) [#/Vol]3.43 10*3/[facility], MALymphocytes/100 WBC (Bld)49 %High24 - 43 %[facility] HospitalH (RBC) [Entitic mass]23.3 pgLow25.2 - 33.5 pgStat[place], KYMCHC (RBC) [Mass/Vol]30.1 g/dL28.4 - 34.8 g/dLStaten [place], KYMCV (RBC) [Entitic vol]77.4 fLLow82.6 - 102.9 fLCherrington Hospital, KYMonocytes (Bld) [#/Vol]0.60 10*3/[facility], KYMonocytes/100 WBC (Bld)8 %3 - 12 %[place], KYPlatelet mean volume (Bld) [Entitic vol]9.6 fL8.1 - 13.5 fLCherrington Hospital, KYPlatelets (Bld) [#/Vol]NOT REPORTEDCherrington Hospital, KYPlatelets (Bld) [#/Vol]283 10*3/[facility], MARBC (Bld) [#/Vol]4.34 10*6/uL3.95 - 5.11 m/[facility], MARBC morphology finding Nom (Bld)NOT REPORTEDCherrington Hospital, MASegmented neutrophils/100 WBC (Bld)40 %36 - 65 %[facility]- [place], KYSegs Absolute2.86[facility]- [place], KYWBC (Bld) [#/Vol]7.2 10*3/uLMercy Health- [place], KYWBC (Bld) [#/Vol]0.0 10*3/uL0.0 per 100 WBCWood County Hospital Health- [place], KYWBC MorphologyNOT REPORTEDMer Health- [place], KYCEAon [id number] ng/mLHigh<3.9 [facility]- [place], KYComment on above:The Andres ECLIA assay is used. Results obtained with different assay methods cannot be used interchangeably. Interpretation and review of laboratory resultsAbnormalWood County Hospital [facility]- [place], [place] Comprehensive Metabolic Panelon [id number] [Mass/Vol]4 g/dL3.5 - 5.2 g/dL [facility]- [place], KYAlbumin/Globulin [Mass ratio]1.3 {ratio}[facility]- [place], [place] ALP [Catalytic activity/Vol]144 U/LHigh35 - 104 U/LMercy Health- [place], KYALT [Catalytic activity/Vol]29 U/L5 - 33 U/LMercy [facility]- [place], KYAnion gap [Moles/Vol]13 mmol/L9 - 17 mmol/LMercy Health- [place], KYAST [Catalytic activity/Vol]21 U/L<32[facility]- [place], KYBilirubin Ql (U)0.42 mg/dL0.3 - 1.2 mg/dLMer Health- [place], KYBun/Cre Cenah69OsrlFfqjz Health- [place], KYCalcium [Mass/Vol]9.6 mg/dL8.6 - 10.4 mg/dLWood [facility] Hospital [facility]- [place], KYChloride [Moles/Vol]104 mmol/L98 - 107 mmol/LMercy [facility]- [place], KYCO2 [Moles/Vol]23 mmol/L20 - 31 mmol/L [facility]- [place], KYCreatinine [Mass/Vol]0.73 mg/dL0.5 - 0.9 mg/dLCincinnati Children'S Hospital [facility] Centercy [facility]- [place], KYGFR >60>60 mL/minMercy Health- [place], KYGFR Non->60>60 mL/minMercy Health- [place], KYGlucose [Mass/Vol]98 mg/dL70 - 99 mg/dL [facility], TOMInterpretation and review of laboratory resultsAbnormBlanchard Valley Health System, TOMPotassium [Moles/Vol]3.8 mmol/L3.7 - 5.3 mmol/LMBethesda North Hospital, KYProtein [Mass/Vol]7.1 g/dL6.4 - 8.3 g/dLCherrington Hospital, TOMSodium [Moles/Vol] 140 mmol/L135 - 144 mmol/LMBethesda North Hospital, KYUrea nitrogen [Mass/Vol]19 mg/dL8 - 23 mg/dLCherrington Hospital, MAMetabolic Panelon [id number]/1.73 sq M predicted among non-blacks MDRD (S/P/Bld) [Vol rate/Area][place], [place] Comment on above:Average GFR for 60-69 years old: 85 mL/min/1.73sq m Chronic Kidney Disease: <60 mL/min/1.73sq m Kidney failure: <15 mL/min/1.73sq m eGFR calculated using average adult body mass. Additional eGFR calculator available at: http://www.[employer]/multiple_crcl_2012.htm Stage 1: Some kidney damage normal GFR Stage 2: Mild kidney damage GFR 60-89 Stage 3: Moderate kidney damage GFR 30-59 Stage 4: Severe kidney damage GFR 15-29 Stage 5: Severe kidney damage GFR <15 ESRD - chronic treatment by dialysis or transplant APTTon [id number] Coag (Bld) [Time]24.4 sMBethesda North Hospital, TOMCBCon [id number] distribution width (RBC) [Ratio]16.3 %High11.8 - 14.4 % [facility], TOMHematocrit (Bld) [Volume fraction]34.9 %Low36.3 - 47.1 % [place], KYHemoglobin (Bld) [Mass/Vol]10.4 g/dLLow11.9 - 15.1 g/dLCherrington Hospital, MAInterpretation and review of laboratory resultsAbnoBasom, KYMCH (RBC) [Entitic mass]23.2 pgLow25.2 - 33.5 pgMemorial Health System Marietta Memorial HospitalHC (RBC) [Mass/Vol]29.8 g/dL28.4 - 34.8 g/dLMemorial Health System Marietta Memorial HospitalV (RBC) [Entitic vol]77.9 fLLow82.6 - 102.9 fLStaten [place], KYPlatelet mean volume (Bld) [Entitic vol]9.4 fL8.1 - 13.5 fLStat[place], KYPlatelets (Bld) [#/Vol]296 10*3/[place], KYRBC (Bld) [#/Vol]4.48 10*6/uL3.95 - 5.11 m/[facility], MAWBC (Bld) [#/Vol]0.0 10*3/uL0.0 per 100 WBCStaten Island, KYWBC (Bld) [#/Vol]6.6 10*3/[place], KYIR PORT PLACEMENT > 5 YEARSon [id number] ultrasound and fluoroscopy guided Port-A-Cath placementStaten Island, KYPROCEDURE: ULTRASOUND GUIDED VASCULAR ACCESS. FLUOROSCOPY GUIDED PLACEMENT OF A SUBCUTANEOUS PORT-A-CATH. MODERATE CONSCIOUS SEDATION 12/26/2018. HISTORY: ORDERING SYSTEM PROVIDED HISTORY: Malignant ne oplsam of sigmoid colon TECHNOLOGIST PROVIDED HISTORY: Malignant neoplsam of sigmoid colon How manylumens are being requested?->1 What site is the preferred site?->Internal Jugular What side should this line be placed?->Right SEDATION: Versed and Fentanyl were titrated intravenously for moderate sedation monitored under my direction. Total intraservice time of sedation was 15 minutes. The patient's vital signs were monitored throughout the procedure and recorded in the patient's medical record by the nurse. FLUOROSCOPY DOSE AND TYPE OR TIME AND EXPOSURES: Fluoro time 0.2 minutes, entrance skin dose 3.13 mGy TECHNIQUE: Informed written consent was obtained. The patient was then brought to the procedure suite, placed in the supine position, and a timeout was performed. Limited preliminary ultrasound showed a patent right internal jugular vein. The right side of the patient's neck and upper anterior chest were sterilely prepped and draped. After giving local anesthesia, a 21 gauge needle was used to puncture the patent right internal jugular vein from a low lateral approach un be ultrasound guidance, with an image saved. A 0.018 inch wire was then advanced through the needle to the cavoatrial junction, as confirmed fluoroscopically. The needle was exchanged over the wire for a 5 Wallisian coaxial transitional dilator. With the wire tip at the cavoatrial junction, length hussain surement was made. The wire and inner dilator were then exchanged for a 0.035 inch J-wire which wasadvanced into the IVC under fluoroscopic guidance. A site on the upper anterior right chest was then anesthetized with lidocaine with epinephrine as was a subcutaneous track connecting this to the venipuncture site. A #15 blade was used to make an approximately 2 cm long incision on the upper anterior right chest. Subcutaneous port pocket was then created using blunt dissection. The port catheterwas then tunneled to the venotomy site. The port was then placed in the pocket, and the distal end of the catheter was cut to an appropriate length. The 5 Wallisian dilator in the internal jugular vein was exchanged over the 0.035 inch wire for a 8 Wallisian peel-away sheath. The catheter was then advanced through the peel-away sheath and peel-away sheath was removed. Brief fluoroscopic image was takento confirm proper placement of the port with no kinking. Additionally, the tip of the catheter was located at the cavoatrial junction. The port was accessed and noted to aspirate and flush well. The pocket was closed with buried subcutaneous 2-0 Vicryl stitches, running 4 0 Vicryl subcuticular suture, and skin glue. Venotomy site was also closed with skin glue. The port was again accessed and flushed with 5 cc of 100 unit/ml heparin. Sterile dressings were applied. The patient appeared to tolerate the procedure well. FINDINGS: Fluoroscopic image demonstrates the tip of the port at the cavo-atrial junction .[facility] Mhpn Incoming Radiant Results From [employer] - 12/26/2018 10:49 AM EDT PROCEDURE: ULTRASOUND GUIDED VASCULAR ACCESS. FLUOROSCOPY GUIDED PLACEMENT OF A SUBCUTANEOUS PORT-A-CATH. MODERATE CONSCIOUS SEDATION 12/26/2018. HISTORY: ORDERING SYSTEM PROVIDED HISTORY: Malignant neoplsam of sigmoid colon TECHNOLOGIST PROVIDED HISTORY: Malignant neoplsam of sigmoid colon How many lumens are being requested?->1 What site is the preferred site?->Internal Jugular What side should this line be placed?->Right SEDATION: Versed and Fentanyl were titrated intravenously for moderate sedation monitored under my direction. Total intraservice time of sedation was 15 minutes. The patient's vital signs were monitored throughout the procedure and recorded in the patient's medical record by the nurse. FLUOROSCOPY DOSE AND TYPE OR TIME AND EXPOSURES: Fluoro time 0.2 minutes, entrance skin dose 3.13 mGy TECHNIQUE: Informed written consent was obtained. The patient was then brought to the procedure suite, placed in the supine position, and a timeout was performed. Limited preliminary ultrasound showed a patent right internal jugular vein. The right side of the patient's neck and upper anterior chest were sterilely prepped and draped. After giving local anesthesia, a 21 gauge needle was used to puncture the patent right internal jugular vein from a low lateral approach under ultrasound guidance, with an image saved. A 0.018 inch wire was then advanced through the needle to the cavoatrial junction, as confirmed fluoroscopically. The needle was exchanged over the wire for a 5 Wallisian coaxial transitional dilator. With the wire tip at the cavoatrial junction, length measurement was made. The wire and inner dilator were then exchanged for a 0.035 inch J-wire which was advanced into the IVC under fluoroscopic guidance. A site on the upper anterior right chest was then anesthetized with lidocaine with epinephrine as was a subcutaneous track connecting this to the venipuncture site. A #15 blade was used to make an approximately 2 cm long incision on the upper anterior right chest. Subcutaneous port pocket was then created using blunt dissection. The port catheter was then tunneled to the venotomy site. The port was then placed in the pocket, and the distal end of the catheter was cut to an appropriate length. The 5 Wallisian dilator in the internal jugular vein was exchanged over the 0.035 inch wire for a 8 Wallisian peel-away sheath. The catheter was then advanced through the peel-away sheath and peel-away sheath was removed. Brief fluoroscopic image was taken to confirm proper placement of the port with no kinking. Additionally, the tip of the catheter was located at the cavoatrial junction. The port was accessed and noted to aspirate and flush well. The pocket was closed with buried subcutaneous 2-0 Vicryl stitches, running 4 0 Vicryl subcuticular suture, and skin glue. Venotomy site was also closed with skin glue. The port was again accessed and flushed with 5 cc of 100 unit/ml heparin. Sterile dressings were applied. The patient appeared to tolerate the procedure well. FINDINGS: Fluoroscopic image demonstrates the tip of the port at the cavo-atrial junction . IMPRESSION: Successful ultrasound and fluoroscopy guided [facility] placement [facility], KYProtime-INRon [id number] Coag (PPP) [Relative time]1.0 {INR}[facility], KYPT Coag (PPP) [Time]10.4 [facility], KYNo Panel InformationOhiohealth [facility] Vital Signs Date TimeVital SignValuePerforming ApqnzndalIwexpwui50-12-4951 13:40-0400 Respiratory rate16 /minStephen Swade DO Work Phone: bon [employer] [facility] CenterSfeuwh50-68-5409 13:30-0400Diastolic blood mm[Hg]Billy Swade DO Work Phone: bon [employer] [facility] CenterMkiurf07-11-0373 13:30-0400Heart rate52 /minStephen Swade DO Work Phone: bon [facility] CenterDozubw68-80-7244 13:30-9875RfL0% (BldA) [Mass fraction]98 %Billy Swade DO Work Phone: bon [facility] HospitalSoc[facility] CenterJgvixk60-66-0888 13:30-0400Systolic blood vdhljxwi444 mm[Hg]Billy Swade DO Work Phone: bon [facility] HospitalSoc[facility] CenterNhkhse32-49-7897 12:25-0400Body niunoeerrtz23 [degF]Billy Swade DO Work Phone: bon [facility] Hnyiiq37-56-5181 16:00-0400Diastolic blood imymqvgl91 mm[Hg]Stacia OCONNOR Work Phone: [phone] [place], [place] 1667708-20-2025 16:00-0400 Respiratory rate16 /minTammy Viral LABORATORY DIRECTOR-C Work Phone: [phone] [place], [place] 5154308-20-2025 16:00-0400 Systolic blood ojacqjvw744 mm[Hg]Stacia Anderson LABORATORY DIRECTOR-C Work Phone: [phone] [place], [place] 5154308-20-2025 15:10-0400 Heart rate51 /minTammy Viral LABORATORY DIRECTOR-C Work Phone: [phone]08-20-2025 15:10-0400 SaO2% (BldA) [Mass fraction]97 %Stacia Anderson LABORATORY DIRECTOR-C Work Phone: [phone] [place], [place] 5154308-20-2025 13:20-0400 Body hsjadzynqco85.1 [degF]Stacia Anderson LABORATORY DIRECTOR-C Work Phone: [phone] [place], [place] 5154308-20-2025 12:17-0400 Body .1 cmTeulalio Flynnant LABORATORY DIRECTOR-C Work Phone: [phone]08-20-2025 12:17-0400 Body tqyobw42.52 kgTammy Viral LABORATORY DIRECTOR-C Work Phone: [phone]06-26-2025 14:30-0400 Diastolic blood kccultrc66 mm[Hg][facility]06-26-2025 14:30-0400Heart rate52 /minMthz [facility]06-26-2025 14:30-0400Systolic blood bjoubjyt161 mm[Hg][facility] 10-11-2024 11:16-0400Body vervkaruchc84.69 [degF][facility]06-26-2025 11:16-0400Respiratory rate18 /minMthz [facility]06-18-2025 10:29-0400Body ujmmmk156.1 Jessica Loyd MD Work Phone: [facility]06-18-2025 10:29-0400Body mass index (BMI) [Ratio]36.28 kg/m2Shadi Lody MD Work Phone: [facility]06-18-2025 10:29-0400Body xbwuat58.9 kgShadi Loyd MD Work Phone: [facility]06-18-2025 10:29-0400Diastolic blood yfhdelix24 mm[Hg]Shadi Loyd MD Work Phone: [facility]06-18-2025 10:29-0400Systolic blood zqxorgqz308 mm[Hg]Shadi Loyd MD Work Phone: [facility]06-12-2025 13:54-0400Diastolic blood leidxnyt47 mm[Hg][facility]06-12-2025 13:54-0400Heart rate64 /minMthz [facility]06-12-2025 13:54-0400Systolic blood mm[Hg][facility] 09-27-2024 11:00-0400Body evusbqddwqo16.3 [degF][facility]06-12-2025 11:00-0400Respiratory rate18 /minMthz [facility]05-29-2025 11:15-0400Diastolic blood faveryzn62 mm[Hg][facility] Schedule[facility]05-29-2025 11:15-0400Heart rate78 /minMthz [facility]05-29-2025 11:15-0400Systolic blood dkrikepa074 mm[Hg][facility]05-29-2025 09:17-0400Respiratory rate18 /minMthz [facility]05-29-2025 09:16-0400Body itjkkkshuic61.59 [degF][facility]02-24-2025 11:22-0500Blood Pressure LocationTaOhioHealth O'[facility] 265-7947Iesfut-Urzcr[address] [place] [address] 06-11-2024 11:22-0500Body svnrgwalyin23.52 [degF]Stacia Viral 339-2129Sjmrbd-Jzwbg[address] [place] [address] 06-11-2024 11:22-0500Diastolic blood sjqoblem66 mm[Hg]Stacia Viral 738-8496Lfsnrp-Hcrns[address] [place] [address] 06-11-2024 11:22-0500Heart rate86 /minTammy Viral 483-5395Ymjyvi-Pnitd[address] [place] [address] 06-11-2024 11:22-0500Respiratory rate18 /minTammy Viral 894-8520Vhnfuu-Ojpco[address] [place] [address] 06-11-2024 11:22-9615KlC3% (BldA) [Mass fraction]98 %Stacia Viral 763-9253Drltsj-Ynkwf[address] [place] [address] 06-11-2024 11:22-0500Systolic blood svrbffay729 mm[Hg]Stacia Viral 586-4734Apznfq-Kagae[address] [place] [address] 03-12-2024 14:14-0500Diastolic blood bjjoboys18 mm[Hg]Stacia Viral 285-9428Gftdjt-Poqce[address] [place] [address] 03-12-2024 14:14-0500Mean blood ykorcnfb79 mm[Hg]Stacia Viral 702-5007Srgcjf-Umrac[address] [place] [address] 03-12-2024 14:14-0500Systolic blood mm[Hg]Tsacia Viral 599-0720Roxmwd-Atujn[address] [place] [address] 03-12-2024 13:48-0500Blood Pressure LocationTammy Viral 453-4238Wumjru-Mvoiw[address] [place] [address] 03-12-2024 13:48-0500Body cdqqbrpitbg71.34 [degF]Stacia Anderson 828-0314Ubbenr-Svtmp[address] [place] [address] 03-12-2024 13:48-0500Diastolic blood snbptzym37 mm[Hg]Stacia Anderson 908-3189Zfybrx-Ljfis[address] [place] [address] 03-12-2024 13:48-0500Heart rate76 /minTammy Viral 654-2934Sfbcvt-Idjtw[address] [place] [address] 03-12-2024 13:48-0500Respiratory rate18 /minTammy Viral 787-3048Fwrcft-Fbzsj[address] [place] [address] 03-12-2024 13:48-6844NiR6% (BldA) [Mass fraction]97 %Stacia Anderson 235-0320Bqkrpb-Rsoew[address] [place] [address] 03-12-2024 13:48-0500Systolic blood tssajcdb304 mm[Hg]Stacia Anderson 970-9251Fqdood-Byuew[address] [place] [address] 01-13-2024 09:30-0400Blood Pressure LocationGilma HER 796-3959Xhzoqf-Tqvin[address] [place] [address] 01-13-2024 09:30-0400Diastolic blood mm[Hg]Gilma HER 442-3007Edatiy-Ljdoe[address] [place] [address] 01-13-2024 09:30-0400Heart rate62 /Mili HER 092-3779Tiwyny-Jytrf[address] [place] [address] 01-13-2024 09:30-9811ZgH7% (BldA) [Mass fraction]95 %Gilma HER 964-9731Tgqfak-Jmpwf[address] [place] [address] 01-13-2024 09:30-0400Systolic blood jrnggniw066 mm[Hg]Gilma HER 272-1708Yozulh-Bwgtm[address] [place] [address] 01-02-2024 14:16-0400Body fqdjeb544.1 cmReji Richardson MD Work Phone: [facility]09-16-2024 14:16-0400Body mass index (BMI) [Ratio]34.91 kg/a7AbvwpReji Richardson MD Work Phone: [facility]09-16-2024 14:16-0400Body nibmhx64.17 kgReji Richardson MD Work Phone: [facility]09-16-2024 14:16-0400Diastolic blood uqxegocc58 mm[Hg]Reji Richardson MD Work Phone: [facility]09-16-2024 14:16-0400Heart rate83 /min Reji Richardson MD Work Phone: [facility]09-16-2024 14:16-0400Systolic blood mm[Hg]Reji Richardson MD Work Phone: [facility]07-22-2024 14:34-0400Body temperature 97.34 [degF]Stacia Viral 455-1399Saoknz-OiaxfAk[facility] 11-07-2023 14:34-0400Diastolic blood lkqdamyl25 mm[Hg]Staciakonrad Flynnant 295-1327Dflsdt-XcsmuAkron [facility]'S Hospital 11-07-2023 14:34-0400Heart rate78 /minTammy Viral 854-2602Xlkapc-BubyjAkron Children'S Hospital 11-07-2023 14:34-0400Respiratory rate16 /minTammy Viral 913-5807Myferi-RdxciAkron Children'S Hospital 11-07-2023 14:34-3790BjS5% (BldA) [Mass fraction]98 %Staciakonrad Flynnant 230-6654Ihzusa-IopfdAkron Children'S Hospital 11-07-2023 14:34-0400Systolic blood ydksycen518 mm[Hg]Stacia Flynnant 264-4689Svkojj-CvmqbAkron Children'S Hospital 10-26-2023 12:48-0400Body mfnhma757.1 cmSveestebanana Banjac GENERAL PURCHASING AGENT.RACQUET MAKER Work Phone: [facility]07-10-2024 12:48-0400Body mass index (BMI) [Ratio]35.23 kg/b6Alkkzdik Banjac GENERAL PURCHASING AGENT.RACQUET MAKER Work Phone: [phone]07-10-2024 12:48-0400Body uaxwiw51.03 kgSveestebanana Banjac GENERAL PURCHASING AGENT.RACQUET MAKER Work Phone: [phone]07-10-2024 12:48-0400Diastolic blood zdwnfpem18 mm[Hg]Teresa Banjac GENERAL PURCHASING AGENT.RACQUET MAKER Work Phone: [phone]07-10-2024 12:48-0400Heart rate79 /min Teresa Banjac GENERAL PURCHASING AGENT.RACQUET MAKER Work Phone: [phone]07-10-2024 12:48-5534PvZ4% (BldA) [Mass fraction]95 %Teresa Banjac GENERAL PURCHASING AGENT.RACQUET MAKER Work Phone: [phone]07-10-2024 12:48-0400Systolic blood psrlyiqe159 mm[Hg]Teresa Banjac GENERAL PURCHASING AGENT.RACQUET MAKER Work Phone: [phone]03-13-2024 11:14-0400Blood Pressure LocationTatrae Anderson 901-2568Ywlyxe-KimcpAkron [facility] 06-29-2023 11:14-0400Body scsmwqxamwc00.7 [degF]Stacia Flynnant 739-9348Piviop-YhxbbAk[facility]'S Hospital 06-29-2023 11:14-0400Diastolic blood zctabiiq85 mm[Hg]Stacia Viral 173-9028Isirvs-DimdtAkron Children'S Hospital 06-29-2023 11:14-0400Heart rate81 /minTammy Viral 315-7787Ddeydn-FfyywAkron Children'S Hospital 06-29-2023 11:14-0400Respiratory rate16 /minTammy Viral 745-3955Zmbdvn-LxeyqAkron [facility]'S Hospital 06-29-2023 11:14-4495WxG8% (BldA) [Mass fraction]98 %Stacia Anderson 041-2651Vjhelk-VeybnAkron Children'S Hospital 06-29-2023 11:14-0400Systolic blood gjmvkafq858 mm[Hg]Stacia Anderson 886-6069Zmhxcx-Okjkd[address] [place] [address] 06-26-2023 20:40-0400Body kpyres728.[address] [place], [place] 2857203-10-2024 20:40-0400Body mass index (BMI) [Ratio]36.28 kg/m2Mthz [address] [place], [place] 2857203-10-2024 20:40-0400Body uoiqeq63.[address] [place] [address] 05-25-2023 10:36-0500Blood Pressure LocationTammy Viral 414-0143Awpetg-ZgfshAkron [facility]'S Hospital 05-25-2023 10:36-0500Body crxwkyxibmf81.6 [degF]Stacia Anderson 075-6830Kiafux-LcyxnAk[facility]'S Hospital 05-25-2023 10:36-0500Diastolic blood oprkpsjy22 mm[Hg]Stacia Anderson 276-7830Fvwntg-EkgldAkron Children'S Hospital 05-25-2023 10:36-0500Heart rate90 /minTammy Viral 622-0809Soujjp-OwtxfAkron Children'S Hospital 05-25-2023 10:36-0500Respiratory rate18 /minTammy Viral 696-4515Penzpr-BtenuAkron Children'S Hospital 05-25-2023 10:36-8366ZgC8% (BldA) [Mass fraction]95 %Stacia Anderson 729-4512Gofnqw-Jhsqr[address] [place] [address] 05-25-2023 10:36-0500Systolic blood qmfolafr170 mm[Hg]Stacia Anderson 650-4091Fbjkfz-Ddpib[address] [place] [address] 2023 14:53-0500Blood Pressure LocationGilma HER 630-6724Diufiz-Xcokp[address] [place] [address] 2023 14:53-0500Body wnhitbfnzgx24.7 [degF]Gilma HER 951-5615Xfovjw-Hhmah[address] [place] [address] 2023 14:53-0500Diastolic blood zlqtausc05 mm[Hg]Gilma HER 548-3306Tluoiy-Byrqg[address] [place] [address] 2023 14:53-0500Heart rate88 /minGilma HER 853-6616Bbzemv-Cvvna[address] [place] [address] 2023 14:53-0500Respiratory rate20 /Mili HER 310-2702Guyjvf-Cfpki[address] [place] [address] 2023 14:53-9483DqR4% (BldA) [Mass fraction]97 %Gilma HER 374-6825Ezwugr-Hqqvs[address] [place] [address] 2023 14:53-0500Systolic blood kivmgkzb257 mm[Hg]Gilma HER 121-7150Tqkcto-Rqdvi[address] [place] [address] 04-12-2023 12:14-0500Body gvfirt382.1 Alfred Her MD Work Phone: bon [employer]12-26-2023 12:14-0500Body mass index (BMI) [Ratio]36.61 kg/j1OpbbuGilma Her MD Work Phone: bon [facility]12-26-2023 12:14-0500Body jksraahzqpn06.9 [degF]Gilma Her MD Work Phone: bEREN [facility]12-26-2023 12:14-0500Body odtdwe94.79 kgGilma Her MD Work Phone: b[facility]12-26-2023 12:14-0500Diastolic blood ufwbcltt810 mm[Hg]Gilma Her MD Work Phone: bEREN [facility]12-26-2023 12:14-0500Heart rate87 /minGilma Her MD Work Phone: b[facility]12-26-2023 12:14-0500 Respiratory rate20 /minGilma Her MD Work Phone: [facility]12-26-2023 12:14-1625IwN6% (BldA) [Mass fraction]95 %Gilma Her MD Work Phone: bon [facility]12-26-2023 12:14-0500Systolic blood wwecohsq368 mm[Hg]Gilma Her MD Work Phone: bon [facility]12-01-2023 11:49-0500Diastolic blood ueuosmic82 mm[Hg]Gilma HER 875-7482Cbnagy-Jfbil[address] [place] [address] 03-18-2023 11:49-0500Mean blood mm[Hg]Gilma HER 487-1210Rmatng-Sjcxc[address] [place] [address] 03-18-2023 11:49-0500Systolic blood zjljnpax445 mm[Hg]Gilma HER 438-0605Wqgelo-Oqnbr[address] [place] [address] 03-18-2023 11:15-0500Blood Pressure LocationGilma HER 659-2900Gwaizf-Csukv[address] [place] [address] 03-18-2023 11:15-0500Body hzmphljyuly68.24 [degF]Gilma EHR 577-3367Codcrx-Etyck[address] [place] [address] 03-18-2023 11:15-0500Diastolic blood zwzywzqd82 mm[Hg]Gilma HER 477-8763Batjas-PvgbhAkron [facility]'S Hospital 03-18-2023 11:15-0500Heart rate95 /minJusticedave ARDEN 544-3701Ivblxl-Vumxe[address] [place] [address] 03-18-2023 11:15-0500Respiratory rate16 /minJusticedave ARDEN 071-1021Dgdbiv-Ytnme[address] [place] [address] 03-18-2023 11:15-8300UiI3% (BldA) [Mass fraction]97 %Gilma [employer] 132-4332Uyfxvy-Tppgh[address] [place] [address] 03-18-2023 11:15-0500Systolic blood cxvvpxca062 mm[Hg]Gilma HER 829-9788Xjmyio-Xpjtp[address] [place] [address] 09-16-2022 11:26-0400Diastolic blood iujdmpdi44 mm[Hg]Gilma [employer] 690-6982Gqjrtk-Adbmw[address] [place] [address] 09-16-2022 11:26-0400Mean blood vaomdzsd736 mm[Hg]Gilma [employer] 553-7483Acvvmp-Jlfda[address] [place] [address] 09-16-2022 11:26-0400Systolic blood mohwoswp737 mm[Hg]Gilma HER 924-1424Xfteux-Izjjm[address] [place] [address] 09-16-2022 11:21-0400Blood Pressure LocationGilma [employer] 432-4513Glrpgk-Nyykd[address] [place] [address] 09-16-2022 11:21-0400Body rervktnutgm08.44 [degF]Gilma [employer] 482-6213Cczudt-Ldhvf[address] [place] [address] 06-01-2023 11:21-0400Diastolic blood ypnkjiep23 mm[Hg]Gilma HER 524-9928Nxdqyy-Phkfv[address] [place] [address] 09-16-2022 11:21-0400Heart rate88 /Aarondave ARDEN 997-4409Kddzum-Mennb[address] [place] [address] 09-16-2022 11:21-0400Respiratory rate16 /Mili [employer] 501-0092Cqhzjb-Jaiby[address] [place] [address] 09-16-2022 11:21-9208LqH6% (BldA) [Mass fraction]97 %Gilma [employer] 565-9325Ivqtns-Wlrfk[address] [place] [address] 09-16-2022 11:21-0400Systolic blood hudsamnz277 mm[Hg]Gilma [employer] 832-6832Zuwdbh-Xhbrq[address] [place] [address] 03-17-2022 10:35-0500Blood Pressure LocationGilma [employer] 815-7309Yryilv-Ytnvj[address] [place] [address] 03-17-2022 10:35-0500Body tilemcrkmbb80.8 [degF]Gilma [employer] 595-4640Tbdory-Weedd[address] [place] [address] 03-17-2022 10:35-0500Diastolic blood taceiosq40 mm[Hg]Gilma [employer] 738-8151Btodfb-Freld[address] [place] [address] 03-17-2022 10:35-0500Heart rate95 /Mili HER 653-2243Jnxmlk-Rgyym[address] [place] [address] 03-17-2022 10:35-0500Respiratory rate16 /Mili [employer] 534-8733Xuqbmp-Mfzlz[address] [place] [address] 03-17-2022 10:35-5571AzQ2% (BldA) [Mass fraction]95 %Gilma [employer] 869-9904Mbqgev-Jyddl[address] [place] [address] 11-30-2022 10:35-0500Systolic blood ejhabomf350 mm[Hg]Gilma HER 678-6124Haegjo-Tksjy[address] [place] [address] 02-12-2022 10:14-0400Diastolic blood uajioovn86 mm[Hg]Gilma [employer] 780-3436Ufgxeu-Gnvvx[address] [place] [address] 02-12-2022 10:14-0400Mean blood uwcdtajg14 mm[Hg]Gilma [employer] 655-6242Ieexwp-Pnwcp[address] [place] [address] 02-12-2022 10:14-0400Systolic blood ulchmyuk134 mm[Hg]Gilma [employer] 550-2013Dvydak-Hwlgz[address] [place] [address] 02-12-2022 09:12-0400Blood Pressure LocationJusticedave [employer] 815-7938Ddwkss-Aojmi[address] [place] [address] 02-12-2022 09:12-0400Body vfwfggnztuj30.8 [degF]Gilma [employer] 601-1659Esyqnu-Xpzkh[address] [place] [address] 02-12-2022 09:12-0400Diastolic blood dvasjyfp69 mm[Hg]Gilma [employer] 022-5160Rorfbf-Jpsgk[address] [place] [address] 02-12-2022 09:12-0400Heart rate92 /haoGilma [employer] 850-7370Vcenaq-Hefrs[address] [place] [address] 02-12-2022 09:12-0400Respiratory rate16 /Aarondave ARDEN 920-7130Xfaruu-Ncyrt[address] [place] [address] 02-12-2022 09:12-5901RpX8% (BldA) [Mass fraction]97 %Gilma [employer] 883-0706Ingwzk-Kimqv[address] [place] [address] 02-12-2022 09:12-0400Systolic blood yujsduiw367 mm[Hg]Gilma [employer] 873-9559Kwpmpc-Zygua[address] [place] [address] 01-06-2021 12:00-0400Diastolic blood rtuusexc56 mm[Hg]Gilma Her MD Work Phone: [employer] Work Phone: 1(672) 334-658909-21-2021 12:00-0400Heart rate89 /minGilma Her MD Work Phone: [phone] Work Phone: 1(445) 413-432109-21-2021 12:00-0400Respiratory rate10 /minGilma Her MD Work Phone: [phone] Work Phone: 1([phone]) 686-839709-21-2021 12:00-5017ViR3% (BldA) [Mass fraction]95 % Gilma Her MD Work Phone: [phone] Work Phone: 1([phone]) 314-721309-21-2021 12:00-0400Systolic blood ektxuaak949 mm[Hg] Gilma Her MD Work Phone: [facility] Work Phone: 1(855) 651-326909-21-2021 11:40-0400Body cmlbxilxvhk62.81 [degF]Gilma Her MD Work Phone: [facility] Work Phone: 1([phone] 817-661909-21-2021 11:33-0400Body .1 cmVshante Her MD Work Phone: [facility] Work Phone: 1([phone] 11:33-0400Body mass index (BMI) [Ratio] 34.95 kg/k0VstirGilma Her MD Work Phone: [facility] Work Phone: 1(406) 433-262809-21-2021 11:33-0400Body vlalvy56.25 kgGilma Her MD Work Phone: [phone] Work Phone: 1(773) 971-143711-03-2020 15:09-0500BP Frzaeqcvl97 mm[Hg][place], [place]11-03-2020 15:09-0500BP Azjjevdz571 mm[Hg]Jian [facility], [id number] 15:09-0500Pulse (Heart Rate)78 /[facility]Select [facility] [place], [place]44-75-8671 15:09-0500Pulse Rhhsjtgq96 %Jian [facility], [id number] 15:09-0500Respiratory Rate15 /[facility]Select [facility] [place], [id number] 14:04-0500BMI (Body Mass Index)35.61 kg/m2 Jian [facility], [id number] 14:04-0500Body Wxxdofojxtz33.8 [degF]Jian [facility], [id number] 14:04-0500Body wigltg25.07 kgBenefremSelect Medical Specialty Hospital - [place], HK88-23-2525 14:04-5840Ismome833.1 cmBenefremSelect Medical Specialty Hospital - [place], [id number] 12:30-0400BP Ygxldsyei72 mm[Hg]Ignacio [facility], [id number] 12:30-0400BP Abvrspyx676 mm[Hg]Ignacio [facility], [id number] 12:30-0400Pulse (Heart Rate)61 /[facility], [id number] 12:30-0400Pulse Ktgorfip84 %Ignacio [facility], [id number] 12:30-0400Respiratory Rate16 /[facility], [id number] 12:01-0400Body Llcxcgpjclg97.59 [degF]Ignacio [facility], [id number] 10:00-0400BMI (Body Mass Index)34.11 kg/m2 Ignacio [facility], [id number] 10:00-0400Body ewmhlq35.99 kgStvaleria [facility], [id number] 10:00-3936Qmlgfb365.1 [facility], MY17-25-7785 10:04-0400Body Isbwsmbcvfz32 [degF][facility]z [facility], AW64-94-1123 10:43-0500Body Gsoccyiedag47.2 [degF][facility], ZN39-80-2750 10:43-0500BP Tmpbnsfhz46 mm[Hg][facility], YQ12-21-7528 10:43-0500BP Cbqrgjeq426 mm[Hg][facility], PB46-42-2194 10:43-0500Pulse (Heart Rate)99 /minMthz [facility], FH66-00-0983 10:43-0500Respiratory Rate18 /minMthz [facility], MP69-43-2600 08:16-0500BMI (Body Mass Index)31.62 kg/m2Mthz Lab [facility], ZD96-65-8626 08:16-0500Body Hgopgnquwbb06 [degF][facility], UI93-77-1912 08:16-0500Body .18 kgMthz Lab [facility], YA53-67-5463 08:16-0500BP Ysdlaucfk34 mm[Hg]Mthz [facility], FU19-42-6701 08:16-0500BP Exynhmur286 mm[Hg][facility], UM60-06-0962 08:16-5177Ceewcm717.1 cmMthz Lab [facility], SW64-24-3576 08:16-0500Pulse (Heart Rate)99 /minMthz Lab [facility], VX79-89-3522 08:16-0500Respiratory Rate18 /minMthz Lab [facility], AQ15-22-6517 11:14-0500Body Aygoxhhqnav63.39 [degF] [facility], QP08-43-6155 11:14-0500BP Vwsomclqo63 mm[Hg][facility], FF71-44-2318 11:14-0500BP Duojtswc937 mm[Hg][facility], XD82-41-4014 11:14-0500Pulse (Heart Rate)96 /minMthz [facility], WQ98-26-4193 11:14-0500Respiratory Rate18 /minMthz [facility] [employer] [place], VA91-68-9265 09:26-0500BMI (Body Mass Index)31.28 kg/m2Mthz Lab [facility] Institute[facility] Work Phone: [phone] 09:26-0500Body Mtmesreubfp31.01 [degF]Mthz Lab [facility] Work Phone: [phone] 09:26-0500Body czktax10.28 kgMthz Lab [facility] InstituteMedical [facility] Work Phone: 1(393) 559-327802-18-2020 09:26-0500BP Yoizxjmeg37 mm[Hg]M[facility]z Lab [facility] Work Phone: 1([phone]) 352-643602-18-2020 09:26-0500BP Qljynrzi068 mm[Hg][facility] Work Phone: 1([phone])[phone] 09:26-2712Qnrmsm927.1 cmMthz Lab [facility] [employer] Work Phone: 1(523) 792-616402-18-2020 09:26-0500Pulse (Heart Rate)96 /minMthz Lab [facility] Work Phone: [phone]([phone] 09:26-0500Respiratory Rate18 /minMthz Lab [facility] Work Phone: [phone] 10:43-0500Body Bepzpwskihv33.59 [degF][facility] InstituteMedical [facility] Work Phone: 1(625) 694-133202-06-2020 10:43-0500BP Uodrhctmb80 mm[Hg][facility] Medical CenterMedical [facility] Work Phone: 1(227) 451-188202-06-2020 10:43-0500BP Dtslmkjq820 mm[Hg][facility] InstituteMedical [facility] Work Phone: 1(968) 485-558502-06-2020 10:43-0500Pulse (Heart Rate)86 /minMthz [facility] InstituteMedical [facility] Work Phone: 1(454) 580-931502-06-2020 10:43-0500Respiratory Rate18 /minMthz [employer] Work Phone: 1(634) 320-125402-04-2020 12:37-0500BP Tfudtmxpb80 mm[Hg][facility] [employer] Work Phone: 1(960)285-245849-908118-15912130-06-2416 12:37-0500BP Dalalvnj017 mm[Hg][facility] Medical CenterMedical [facility] Work Phone: [phone](689)[phone] 12:37-0500Pulse (Heart Rate)83 /minMthz Lab [employer] Work Phone: 1([phone] 739-679002-04-2020 08:09-0500BMI (Body Mass Index)31.78 kg/m2 [facility] CenterMedical [facility] Work Phone: [phone]([phone] 08:09-0500Body Qqxfprzdghj14.2 [degF]Mthz Lab [facility] CenterMedical [facility] Work Phone: 1([phone])[phone] 08:09-0500Body nalqsa41.64 kgMthz Lab [employer] Work Phone: 1(947) 195-682002-04-2020 08:09-1453Eiznws099.1 cmMthz Lab Schedule [employer] Work Phone: 1(923) 593-829402-04-2020 08:09-0500Respiratory Rate18 /minMthz Lab [facility] Medical CenterMedical [facility] Work Phone: 1(516)[phone] 12:22-0500Body qpskchaguau95.59 [degF][facility] Medical CenterMedical [facility] Work Phone: [phone]([phone] 12:22-0500Diastolic blood mm[Hg] [facility] [employer] Work Phone: 1(388)[phone] 12:22-0500Heart rate94 /minMthz Schedule [employer] Work Phone: 1(234)[phone] 12:22-0500Respiratory rate18 /minMthz [facility] CenterMedical [facility] Work Phone: 1(831) 100-889301-23-2020 12:22-0500Systolic blood bvlijrvy117 mm[Hg] [facility] [employer] Work Phone: [phone]([phone] 08:28-0500Body yvziox963.1 cmMthz Lab [facility] CenterMedical [employer] [facility] Work Phone: [phone]([phone] 08:28-0500Body mass index (BMI) [Ratio] 31.28 kg/m2Mthz Lab [employer] Work Phone: 1([phone] 08:28-0500Body edmnvsohurh41.59 [degF]Mthz Lab [employer] Work Phone: 1(705)[phone] 08:28-0500Body wsdesx29.28 kgMthz Lab [employer] Work Phone: [phone]([phone] 08:28-0500Diastolic blood pxcuwpgn40 mm[Hg] Mthz Lab [employer] Work Phone: [phone] 08:28-0500Heart ywmj891 /minMthz Lab [facility] CenterMedical [facility] Work Phone: 1([phone] 08:28-0500Respiratory rate18 /minMthz Lab [facility] Medical CenterMedical [facility] Work Phone: [phone] 08:28-0500Systolic blood vmlogmsd277 mm[Hg] Mthz Lab [facility] Medical CenterPaymentOne Phone: 1([phone] 08:16-0500Body egqnki975.1 cmMthz Lab [facility] Medical CenterMedical [employer] [facility] Work Phone: [phone]([phone] 08:16-0500Body mass index (BMI) [Ratio] 31.12 kg/m2Mthz Lab [employer] Work Phone: [phone]([phone] 08:16-0500Body unqxylfxmvy59.81 [degF]Mthz Lab [facility] Medical CenterMedical [facility] Work Phone: [phone] 08:16-0500Body .82 kgMthz Lab [employer] Work Phone: 1([phone] 08:16-0500Diastolic blood dqfotdhm94 mm[Hg] Mthz Lab [employer] Work Phone: 1(470) 620-385301-07-2020 08:16-0500Heart rate77 /minMthz Lab MobileWeaverMerMedical [employer] Work Phone: 1(961) [phone] 08:16-0500Respiratory rate18 /minMthz Lab [employer] Work Phone: 1(989) 371-885101-07-2020 08:16-0500Systolic blood lletdzgj203 mm[Hg] Mthz Lab [employer] Work Phone: 1(685) 540-921812-26-2019 12:05-0500Body pjsgiiytusr87.3 [degF]Mthz [employer] Work Phone: 1(140) 615-409312-26-2019 12:05-0500Diastolic blood rjxzsejc11 mm[Hg] [facility] [employer] Work Phone: 1(391) 959-867612-26-2019 12:05-0500Heart adve358 /minMthz [employer] Work Phone: 1(363) 319-673812-26-2019 12:05-0500Respiratory rate18 /minMthz [employer] Work Phone: 1(318) 250-558712-26-2019 12:05-0500Systolic blood yflpgxdu812 mm[Hg] [facility] [employer] Work Phone: 1(950) 578-290012-23-2019 08:16-0500Body cziadn809.1 cmMthz [employer] Work Phone: 1(144) 268-176712-23-2019 08:16-0500Body mass index (BMI) [Ratio] 30.95 kg/m2Mthz [employer] Work Phone: 1(544) 499-595312-23-2019 08:16-0500Body gsasvyfbrza51.8 [degF][facility] [employer] Work Phone: 1(789) [phone] 08:16-0500Body .37 kgMthz Schedule [employer] Work Phone: 1(436) 430-256112-23-2019 08:16-0500Diastolic blood jsagqiou12 mm[Hg] [facility] [employer] Work Phone: 1(842) [phone] 08:16-0500Heart rate85 /minMthz [facility] [employer] Phone: 1(152) 276-214712-23-2019 08:16-0500Respiratory rate18 /minMthz [facility] InstitutePayment[facility] Phone: 1(731) 182-250012-23-2019 08:16-0500Systolic blood kvbpugab393 mm[Hg] [facility] [employer] Phone: 1([phone] 11:35-0500Body Mhxoatufkvy43.01 [degF][facility] [employer] [place], ZK78-56-3003 11:35-0500BP Ahkmysahr01 mm[Hg][facility], AC12-35-9784 11:35-0500BP Dsqxutej568 mm[Hg][facility], WB56-08-5961 11:35-0500Pulse (Heart Rate)82 /minMthz [facility]SA[facility], RI71-81-7437 11:35-0500Respiratory Rate16 /minMthz [facility], UG05-28-9770 08:12-0500BMI (Body Mass Index)31.12 kg/m2[facility]SA[facility], JL94-82-2764 08:12-0500Body Jufftsloxpi20.59 [degF][facility], JW53-94-2982 08:12-0500Body .82 kg [facility] [employer] [place], XO01-91-4272 08:12-0500BP Hxfzsdacl50 mm[Hg][facility] [employer] [place], XZ62-36-0600 08:12-0500BP Ogrkfitw951 mm[Hg][facility] [employer] [place], WW01-27-8989 08:12-8651Sotzzw291.1 cmMthz [facility] [employer] [place], EO18-99-0629 08:12-0500Pulse (Heart Rate)84 /minMthz [facility]SA[facility], XY06-48-8071 08:12-0500Respiratory Rate16 /minMthz [facility] [employer] [place], TA57-79-8534 08:10-0500BMI (Body Mass Index)29.45 kg/m2Mthz [facility], XY37-34-8502 08:10-0500Body Pgjgtiwltil90.2 [degF][facility], IN66-28-6876 08:-0500Body cifsdh18.29 kgMthz [facility], QF99-74-8845 08:10-0500BP Zpeazgdwb35 mm[Hg]Mthz [facility], YI77-85-9757 08:10-0500BP Elpioqzd505 mm[Hg]Mthz [facility], VZ64-59-5800 08:10-5043Kmijpy826.1 cmMthz [facility], TN49-21-9351 08:10-0500Pulse (Heart Rate)102 /minMthz Schedule [facility], RX03-77-4664 08:10-0500Respiratory Rate16 /minMthz [facility], CN29-85-2171 08:0500BMI (Body Mass Index)29.79 kg/m2Mthz [facility], RA58-74-2839 08:-0500Body Obnynuvmcpe99.39 [degF] Mthz [facility], XS00-87-2729 08:-0500Body vogwdg37.19 kgMthz [facility], AV16-15-1497 08:21-0500BP Vclcklaim97 mm[Hg]Mthz [facility], YS81-88-0924 08:21-0500BP Uwnoxcdy521 mm[Hg][facility], HT42-78-5209 08:21-0704Mdqmyf563.1 cmMthz [facility], KE81-28-9953 08:21-0500Pulse (Heart Rate)97 /minMthz [facility], ID88-71-7446 08:21-0500Respiratory Rate16 /minMthz [facility], NT26-73-0312 08:21-0400BP Toaxehmwz36 mm[Hg]Mthz [facility], YB51-51-0394 08:21-0400BP Wkjlvplk127 mm[Hg][facility], CU19-28-8747 08:21-0400Pulse (Heart Rate)77 /minMthz [facility], LD46-38-6990 08:19-0400BMI (Body Mass Index)31.12 kg/m2Mthz Schedule [facility], SL58-62-0035 08:19-0400Body Aqrbldcnvfh39.81 [degF][facility], YN85-38-9439 08:19-0400Body hzapti29.82 kgMthz [facility], IN27-38-7080 08:19-5782Skxzpb229.1 cmMthz [facility], HX26-73-7322 08:19-0400Respiratory Rate16 /minMthz [facility], IT35-79-8475 08:46-0400BMI (Body Mass Index)30.79 kg/m2Mthz [facility], IN76-23-4462 08:46-0400Body Ubxihhagigl45.39 [degF] [facility], XM96-04-0928 08:46-0400Body .92 kgMthz [facility], LF29-10-6715 08:46-0400BP Myszzcobd31 mm[Hg][facility], XZ98-18-5689 08:46-0400BP Icojcjzd307 mm[Hg][facility], GK23-27-8495 08:46-1323Imcdgj127.1 cmMthz [facility], XD32-07-5039 08:46-0400Pulse (Heart Rate)90 /minMthz [facility], UU15-34-3135 08:46-0400Respiratory Rate16 /minMthz [facility], DJ83-68-7001 09:12-0400BMI (Body Mass Index)30.55 kg/m2Mthz [facility], YB42-89-9100 09:12-0400Body Mcorhcpsnwn94.6 [degF][facility], WK26-23-7860 09:12-0400Body zpebbv73.28 kgMthz [facility], QL97-07-1959 09:12-0400BP Rpbdjwuut41 mm[Hg]Mthz [facility], YV56-49-3636 09:12-0400BP Edpemnra441 mm[Hg][facility], WX54-19-0714 09:12-7110Srgkjp197.1 cmMthz Schedule [facility], EL55-21-0352 09:12-0400Pulse (Heart Rate)93 /minMthz Schedule [facility], RD06-42-4607 09:12-0400Respiratory Rate18 /minMthz Schedule [facility], GS39-33-0775 08:15-0400BMI (Body Mass Index)30.79 kg/m2Dchz [facility], VZ94-47-0718 08:15-0400Body Qelrdtcmjqy46.01 [degF] [facility], KL11-56-4395 08:15-0400Body boglmy35.92 kgMthz [facility], TQ77-70-9656 08:15-0400BP Qczuihidg85 mm[Hg][facility], EE99-28-8604 08:15-0400BP Yigqwdao012 mm[Hg][facility], GO91-37-4373 08:15-4996Ctxbyt573.1 cmMthz Schedule [facility], WV71-24-7271 08:15-0400Pulse (Heart Rate)95 /minMthz Schedule [facility], UC13-50-4598 08:15-0400Respiratory Rate18 /minMthz [facility], PG44-41-3943 11:28-0400BP Zpijfpelm83 mm[Hg][facility], FC14-06-5680 11:28-0400BP Jxccasmm691 mm[Hg][facility], IW40-41-0898 11:28-0400Pulse (Heart Rate)62 /[facility], YZ02-07-5502 11:28-0400Pulse Hhlcxcvl57 %[facility], 12-26-2018 11:28-0400Respiratory Rate20 /minAnand [facility], [place] 12-26-2018 09:35-0400BMI (Body Mass Index)30.45 kg/q3Iyzxf [facility], MV60-26-4902 09:35-0400Body Vmfwvzfkmgt90.39 [degF]Alec [facility], FS81-30-2038 09:35-0400Body rircyz81.01 kgAnand [facility], [place] 12-26-2018 09:35-6986Ycoirz897.1 cmAnand [facility], [place] Encounters Encounter DateEncounter TypeCare ProviderFacilityStart: 61-58-1187bwnbddvwwi Stacia AndersonFacility: WillardStart: 01-14-2025 End: 84-79-7421bvadznahlzIfvodp J GaleaFacility:FTMCStart: 01-14-2025 End: 18-39-8448Yidxpbf encounter procedureKemi Raya [facility] Start: 01-14-2025 End: 99-55-4708fktqgcwrjnVybyv L. BryantFacility: ardStart: 01-14-2025 End: 32-77-3317Gzoydir encounter Asher Anderson [phone]-[facility]scfMedina [facility] Start: 01-14-2025 End: 72-47-5556Jwaf adult monitoring check doneTatrae Anderson [phone]-SrvtnCorey Hospitalard Start: 01-11-2025 End: 13-36-0817mzcgqgqtdnFYB, APRN-ALBINO AndersonFacility: WillardStart: 01-11-2025 End: 53-17-1982Pclphxg encounter procedureStacia Anderson [phone]-RlxcyMedina Hospital [place] Start: 01-08-2025 End: 15-52-2810bdtsetkwniMZAWG BRYANTWadsworth-Rittman Hospital HospitalStart: 01-08-2025 End: 94-23-8493Ktxfvhsnxt hospital visit by physicianWmchealth Laboratory Schedule [facility] LABComment on above:Paroxysmal atrial fibrillation (HCC); Chronic anticoagulation; Primary hypertension; Dyslipidemia; KEREN (obstructive sleep apnea)Start: 12-28-2024 End: 36-10-9056jmnxkxfxiqXOI, APRN-ALBINO AndersonFacility:FM WillardStart: 12-28-2024 End: 24-65-4407Rgvukqn encounter procedureTatrae Anderson [phone]-UfhubMedina Hospital [place] Start: 12-21-2024 End: 27-72-9488xzdthzeuwrGQRGLADYS JonesFacility:FM WillardStart: 12-21-2024 End: 77-14-2648Yoowtjo encounter procedureTatrae Anderson [phone]-ArpezMedina Hospital [facility] Start: 12-18-2024 End: 76-02-0258emrdfagekpDYBTQKNAlise MORANFacility:FTMCStart: 12-14-2024 End: 58-50-4481qpkhljqiuqHHWGLADYS JonesFacility: ardStart: 12-14-2024 End: 30-67-5768Gbldwnp encounter procedureStacia Anderson [phone]-RcaiqMedina Hospital [facility] Start: 12-09-2024 End: 17-29-2872Qormtvfjj department patient visitScarmen Chatman DO Work Phone: [facility] Emergency DepartmentComment on above: Hypertension, unspecified type (Primary Dx); HypokalemiaStart: 12-07-2024 End: 35-85-2253gcmbmypdctWGQGLADYS JonesFacility: WillardStart: 12-07-2024 End: 89-66-0171Zdsxpgv encounter procedureStacia Anderson [phone]-OraqeMedina Hospital [facility] Start: 12-05-2024 End: 84-31-1243Primpdqmw to same day surgery [place]Ma[place] Moran MD [facility] HospitalStart: 12-05-2024 End: 46-24-6994mhdwonkfvcGator L Bryant LABORATORY DIRECTOR-C Work Phone: [facility] Work Phone: Start: 12-05-2024 End: 57-54-1631nhwfuqhnudLSSZKRMAlise MORANFacility:CD:[id number]: 11-30-2024 End: 92-98-6831jdapnpqyykXJGWAILAlise MORANFacility:EU [place]kyStart: 11-30-2024 End: 06-15-0303Ghzhmwo encounter procedureMAITE MORAN [facility] Start: 11-29-2024 End: 84-38-6631ieaxqwzecbIsdlbz J GaleaFacility:FTMCStart: 11-28-2024 End: 56-65-6446jghsudktpdJyvxdJayden GRAHAMFacility:[facility] SystemStart: 11-14-2024 End: 29-43-7601rvafjeeqavSnymy L. BryantFacility: WillardStart: 11-14-2024 End: 84-08-7148Zwuuoye encounter procedureStacia Anderson [phone]-Tbsnw[address] [place] [address] [place] Start: 11-13-2024 End: 81-20-7160hmyouszvusRhzieb J GaleaFacility:FTMCStart: 11-13-2024 End: 42-71-7174qlzudpasdpQqoazn J GaleaFacility:EU tart: 11-13-2024 End: 59-24-5120Wnufphd encounter procedureAlyshilton Raya [facility] Start: 06-88-6756fqzlkdagjqThlbu BryantFacility:EU Christian HospitalKYtart: 11-07-2024 End: 88-62-1053ucbqvifvqqWahtbcw A. 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 LABComment on above:Malignant neoplasm of sigmoid colon (HCC); Iron deficiency anemia due to chronic blood loss; Elevated CEAStart: 10-11-2024 End: 84-55-1687btofzaerxjYGOMOAtrium Health Harrisburg HospitalStart: 10-11-2024 End: 25-04-3055Egakjyglyl hospital visit by physicianWmchealth Med Onc Room 5 SchedulePAN [facility] MED ONCComment on above:Encounter for care related to vascular access port (Primary Dx); Malignant neoplasm of sigmoid colon (HCC)Start: 10-03-2024 End: 61-99-9090hcbdqxzaobDPTVZFormerly [facility] HospitalStart: 10-03-2024 End: 14-77-8949Wozqmrmfcb hospital visit by Stefan Loyd MD Work Phone: [facility] Non-Invasive CardiologyComment on above:Paroxysmal atrial fibrillation (HCC); Chronic anticoagulation; Malignant neoplasm of sigmoid colon (HCC); Primary hypertension; Dyslipidemia; KEREN (obstructive sleep apnea); Goiter; Abnormal ECGStart: 10-03-2024 End: 42-34-6106gwqqgugzscRmkghStacia GRAHAMFacility:[facility] SystemStart: 09-27-2024 End: 56-51-3415shxofljlqhAGMPAFormerly [facility] HospitalStart: 09-27-2024 End: 60-04-1798Kewkyykzfn hospital visit by physicianWmchealth Med Onc Chair 3 ScheduleP[facility] MED ONCComment on above:Encounter for care related to vascular access port (Primary Dx); Malignant neoplasm of sigmoid colon (HCC)Start: 09-13-2024 End: 81-25-5972kntmtwisuqEMIUOFormerly [facility] HospitalStart: 09-13-2024 End: 07-37-8048Gitwexpwsw hospital visit by physicianWmchealth Med Onc Room 5 ScheduleP[facility] MED ONCComment on above:Encounter for care related to vascular access port (Primary Dx); Malignant neoplasm of sigmoid colon (HCC)Start: 09-03-2024 End: 44-60-2803zmarcsggqgOTKUK BRYDOMINICWadsworth-Rittman Hospital HospitalStart: 09-03-2024 End: 14-55-3814Djlzoamuuc hospital visit by Kit Anderson APRN - ALBINO Work Phone: [facility] LABComment on above:Malignant neoplasm of sigmoid colon (HCC); Iron deficiency anemia due to chronic blood loss; Elevated CEAStart: 07-10-2024 End: 04-52-8264xrodfhyvvyFwcxw L. BryantFacility: WillardStart: 06-11-2024 End: 89-57-7439Ous Drop offTatrae Anderson [facility] Start: 06-11-2024 End: 18-92-6883iuwpdxhmprEohvo L. BryantFacility:FTMCStart: 06-11-2024 End: 92-84-0464Biupenc encounter procedureStacia Anderson [phone]-LmzeyKind[facility] Start: 05-11-2024 End: 45-39-3939idyyvtwiwnWztsy L. BryantFacility: ardStart: 05-07-2024 End: 93-64-8074Uzxgtakjq encounterWan Bloom MD Work Phone: OphthalmologyStart: 05-03-2024 End: 91-54-9179cznfcnzmpnIIFFTBD M GOSHEFacility:[facility] Systemtart: 05-03-2024 End: 12-87-8543diudaaiagzONZKSRG M GOSHEFacility:[facility] Systemtart: 05-03-2024 End: 76-79-3289Iuhwuu outpatient visit 25 minutesWan Bloom MD Work Phone: OphthalmologyComment on above:Keratoconus, stable, bilateral (Primary Dx); Corneal deposit of left eye; Rejection of cornea transplant of left eyeStart: 03-12-2024 End: 20-52-7601wxsdakjxrtLvdgf L. 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)Start: 03-05-2024 End: 85-89-1546osqlymlnpvZGWGB BRYANTMercy Ramer HospitalStart: 03-05-2024 End: 27-55-2229Muybhtdxyv hospital visit by physicianStacia Castellano CNP Work Phone: mthz LaboratoryComment on above:Malignant neoplasm of sigmoid colon (HCC); Elevated CEA; History of colon cancerStart: 01-27-2024 End: 97-64-3342muoqyqacdwCPYKJA LINFacility:[facility] Systemtart: 01-27-2024 End: 21-81-6971Ifjnwcx encounter Estefani Arenas MD Work Phone: OphthalmologyComment on above: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Start: 01-13-2024 End: 22-17-3416Ejdqhas encounter Carmen HER [phone]-TaorhCorey Hospitalard Start: 01-13-2024 End: 37-04-8515Vcmc adult monitoring check Adela HER [phone]-WrjbqMedina Hospital Babat[facility] Start: 01-02-2024 End: 75-77-1682kazlkizymxONGGS SROUBEKFacility:[facility] Systemtart: 01-02-2024 End: 08-65-4966Sutyfov encounter Alex Richardson MD Work Phone: CardiologyComment on above:AF (paroxysmal atrial fibrillation) (HCC) (Primary Dx)Start: 01-02-2024 End: 80-87-8823clwadqcxpbMCWEK SROUBEKFacility:[facility] Systemtart: 12-23-2023 End: 68-33-2376Mafjqkswe encounterReji Richardson MD Work Phone: CardiologyComment on above:Received Outside Medical RecordsStart: 11-25-2023 End: 42-63-5740dyxidpyhrqRKCKFE LINFacility:[facility] Systemtart: 11-25-2023 End: 45-56-6828Doksxuz encounter procedureTati Arenas MD Work Phone: OphthalmologyComment on above: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); S/P eye surgery; Panuveitis of both eyesStart: 54-28-7710Mfwzzi OnlyReji Richardson MD Work Phone: CardiologyComment on above:PAF (paroxysmal atrial fibrillation) (HCC) (Primary Dx)Start: 11-10-2023 End: 96-09-8412Mfdqwsexhs hospital visit by physicianShadi Loyd MD Work Phone: [facility] Non-Invasive CardiologyComment on above:Paroxysmal atrial fibrillation (HCC)Start: 70-19-4672Otupizgeh encounterNo One (Historical)Referring PhysicianStart: 11-08-2023 End: 52-84-2081mtztpjhkghCIDJYH LINFacility:[facility] Systemtart: 11-08-2023 End: 85-19-4787Hhkbbdg encounter procedureTati Arenas MD Work Phone: [facility] AkronComment on above: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)Start: 11-07-2023 End: 68-96-5197Ftqncnk encounter procedureStacia Anderson [phone]-IuhzxKind[facility] [place] Start: 10-27-2023 End: 53-90-1898Ohhvjd follow up visit related to original Forest Lopez MD Work Phone: OphthalmologyComment on above:S/P eye surgery (Primary Dx)Start: 10-26-2023 End: 30-97-1570Vxorrptbsraaf examination doneSginger Maldonado APRN.RACQUET MAKER Work Phone: [facility] Work Phone: Start: 10-26-2023 End: 96-58-3673Kovdkar encounter procedurePeShore MD Work Phone: ophthalmologyComment on above:Chorioretinitis of right eye (Primary Dx); Panuveitis of both eyesPreop examination (Primary Dx); 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, left; Primary hypertension; PAF (paroxysmal atrial fibrillation) (HCC); Dyslipidemia; KEREN on CPAP; Anxiety and depression; History of colon cancer; Splenic vein thrombosisStart: 60-94-9903Xhflmlvmo encounterSuncash Isaacs MD Work Phone: OphthalmologyComment on above:Follow UpStart: 09-13-2023 End: 65-60-1411Sneycmfreu hospital visit by physicianStacia Anderson GENERAL PURCHASING AGENT - RACQUET MAKER Work Phone: mthz LaboratoryComment on above:Malignant neoplasm of sigmoid colon (HCC); Elevated CEA; History of colon cancerStart: 08-18-2023 End: 16-01-4507Cidgmng encounter procedureOpht Contact [place] Main OphthalmologyComment on above:Keratoconus, stable, bilateral (Primary Dx) Keratoconus, stable, bilateral (Primary Dx); Cornea replaced by transplantStart: 08-18-2023 End: 36-85-7080Uquvwcd encounter procedureSuncash Isaacs MD Work Phone: OphthalmologyComment on above:Chorioretinitis of right eye; 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; Exudative retinal detachment of right eyeStart: 07-27-2023 End: 51-92-0218Nlnnmhm encounter procedureEric Patton OD Work Phone: OphthalmologyComment on above:Keratoconus, stable, bilateral (Primary Dx); Left corneal scar with opacity; Cornea replaced by transplantStart: 06-29-2023 End: 74-45-4136Pvarvfe encounter procedureTatrae Anderson [phone]-XqkdvMedina Hospital [place] Start: 06-26-2023 End: 38-90-9070Zxhoznwlho hospital visit by physicianWmchealth Sleep 1MZ Sleep CenterComment on above:KEREN (obstructive sleep apnea)Start: 63-26-7930cpwldhjgvd Eric Patton OD Work Phone: OphthalmologyComment on above:Contact [employer] [place] Start: 06-23-2023 End: 82-25-8411Ndtxfdy encounter procedureEric Patton OD Work Phone: OphthalmologyComment on above:Keratoconus, stable, bilateral (Primary Dx); Cornea replaced by transplantStart: 05-26-2023 End: 41-86-0124Jthquunjdz hospital visit by Jose Eduardo Her MD Work Phone: mthz LaboratoryComment on above:Malignant neoplasm of sigmoid colon (HCC); Elevated CEA; Splenic vein thrombosis; Iron deficiency anemia due to chronic blood lossStart: 05-26-2023 End: 44-39-0620Ldpeasjryb hospital visit by Flash Torre PTMTHZ Physical TherapyComment on above:ArrivedStart: 05-25-2023 End: 46-50-3719Vqyzmcl encounter procedureTatrae Anderson [phone]-IfqkhMedina Hospital Babat[facility] Start: 05-12-2023 End: 18-48-6443Djjzjojdfs hospital visit by Luis M Humphreys PTAMTHZ Physical TherapyComment on above:ArrivedStart: 05-03-2023 End: 44-00-5320Ibgmgxkruz hospital visit by Luis M Humphreys PTAMTHZ Physical TherapyComment on above:ArrivedStart: 2023 End: 29-94-2934Auwheka encounter procedureGilma HER [phone]-XzmxkMedina Hospital [place] Start: 04-12-2023 End: 49-32-9130Ewcjdbyxh department patient visitGilma Her MD Work Phone: [facility] EDComment on above:Acute left- sided low back pain with left-sided sciatica (Primary Dx)Start: 03-18-2023 End: 32-73-7875Bbhjdos encounter procedureGilma HER [phone]-WadoxAkron [facility] Start: 03-17-2023 End: 12-22-5328Fcojbts encounter procedureSmerna Isaacs MD Work Phone: OphthalmologyComment on above:Chorioretinitis of right eye; 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 Cat Scan [facility] CT ScanComment on above:Malignant neoplasm of sigmoid colon (HCC); Elevated CEAStart: 07-06-2022 End: 98-88-4752Mudbrsp encounter procedureMatheus Moncada MD Work Phone: OphthalmologyComment on above:Epiretinal membrane (ERM) of left eye (Primary Dx); Keratoconus, stable, bilateral; Pseudophakia, both eyes; History of detached retina repair both eyes; Anxiety and depression; Primary hypertension; Optic disc edema; Epiretinal membrane (ERM) of right eyeStart: 06-18-2022 End: 70-35-9644Pdvyawqjlj hospital visit by physicianGilma Her MD Work Phone: [facility] LaboratoryComment on above:Malignant neoplasm of sigmoid colon (HCC)Start: 03-17-2022 End: 03-99-0511Qokfabd encounter Carmen HER [phone]-RvasvAkron Children'S Hospital Start: 03-04-2022 End: 65-67-1973lfwwjmxentAW GILMA HERFacility:Q4Ukxsa: 02-17-2022 End: 17-03-8556Zlbjqkm encounter Merna Gonzalez MD Work Phone: OphthalmologyComment on above:Other localized visual field defect, right eye (Primary Dx); Edema of optic disc of right eye; Epiretinal membrane (ERM) of right eyeStart: 02-12-2022 End: 79-77-9151Wjduhau encounter Carmen HER [phone]-IqrbkAkron Children'S Hospital Start: 02-04-2022 End: 35-99-5110Xejsofp encounter procedureWan Bloom MD Work Phone: OphthalmologyComment on above:S/P PKP (penetrating keratoplasty) (Primary Dx); Keratoconus, stable, bilateral; Corneal neovascularization of left eye; 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; History of detached retina repairStart: 01-08-2022 End: 77-74-8954pgavoxrsqqSqbpe Cohen MD Work Phone: OphthalmologyComment on above: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); Optic disc edema; 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; Leukoariosis; Primary hypertension; Other abnormal glucoseStart: 01-08-2022 End: 98-01-4214Xpyfqdxlkbod consultation with patientDuy Gonzalez MD Work Phone: [facility] MAINStart: 03-57-9122ibyowukisx GILMA HERFacility:[facility] HospitalStart: 01-07-2022 End: 52-08-8490Lafjelbwfh hospital visit by physicianMri [facility] (1.5t)[facility] LODI HOSPComment on above:Optic disc edema [H47.10]Start: 01-06-2022 End: 97-10-4809Juygoko encounter procedureDuy Gonzalez MD Work Phone: OphthalmologyComment on above:Optic disc edema (Primary Dx); 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; Pain in right eye; History of uveitis; Epiretinal membrane (ERM) of right eyeStart: 12-29-2021 End: 93-68-4199Uqgreka encounter procedureMohishi Moncada MD Work Phone: OphthalmologyComment on above:Optic disc edema of right eye (Primary Dx); Epiretinal membrane (ERM) of right eye; Hx of detached retina repair; Keratoconus, stable, bilateral; Essential hypertensionStart: 11-11-2021 End: 13-92-5634Idhuuzp encounter procedureJasper Banerjee MD Work Phone: ophthalmologyComment on above: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Start: 07-02-2021 End: 42-42-1604Ymqsweotax [facility] by [facility]St[facility] LaboratoryComment on above:Malignant neoplasm of sigmoid colon (HCC); Splenic vein thrombosisStart: 01-06-2021 End: 16-70-6172Tvnmeyhsz department patient visitGilma Her MD Work Phone: [facility] EDComment on above:Hypertension, unspecified type (Primary Dx); AnxietyStart: 01-02-2021 End: 90-26-3149Chhkashwja hospital visit by physicianGilma Her MD Work Phone: mthz LaboratoryComment on above:Malignant neoplasm of sigmoid colon (HCC); Splenic vein thrombosisStart: 09-01-2020 End: 41-75-1608Nukbclhufi hospital visit by Jose Eduardo Her MD Work Phone: mthz LaboratoryComment on above:Malignant neoplasm of sigmoid colon (HCC); Iron deficiency anemia due to chronic blood loss; Splenic vein thrombosisStart: 23-61-4614Rwnipilvyvkzt examination Garth Banerjee MD Work Phone: [facility] Work Phone: Start: 04-30-2020 End: 68-84-1138Lrnsvpdsph hospital visit by [facility] Lab Drawing RoomP[facility] LaboratoryComment on above:Malignant neoplasm of sigmoid colon (HCC); Splenic vein thrombosisStart: 02-19-2020 End: 41-48-0194Bkjkhxiqxy hospital visit by Kermit Varela Work Phone: mthz CATH LABComment on above:Malignant neoplasm of sigmoid colon (HCC)Start: 01-24-2020 End: 41-78-2692Nyuulkvfym hospital visit by Jose Eduardo HerNVJEET Laboratory Comment on above:Splenic vein thrombosis; Malignant neoplasm of sigmoid colon (HCC); Iron deficiency anemia due to chronic blood lossStart: 01-15-2020 End: 18-25-0117Aaouuopqdz hospital visit by Montez Crawford Work Phone: mthz ORStart: 01-08-2020 End: 82-29-3559Wlpkojqkuz hospital visit by [facility] Covid19 Pat Screening [facility] PRE ADMITComment on above:Preop testingStart: 01-03-2020 End: 01-93-8262Ixhyionany hospital visit by Jose Eduardo HerNVJEET Laboratory Comment on above:Splenic vein thrombosisStart: 12-20-2019 End: 95-38-4102Dnpxibrhxo hospital visit by [facility] Med Onc Room 3 [facility] MED ONCComment on above:Encounter for care related to vascular access port (Primary Dx); Malignant neoplasm of sigmoid colon (HCC)Start: 12-13-2019 End: 17-76-5361Wkdjtrsswa hospital visit by Jose Eduardo Basurto Laboratory Comment on above:Splenic vein thrombosisStart: 11-22-2019 End: 64-54-5742Ckjaicpzsn hospital visit by [facility] Med Onc Room 3 [facility] LaboratoryComment on above:Splenic vein thrombosisEncounter for care related to vascular access port (Primary Dx); Malignant neoplasm of sigmoid colon (HCC)Start: 10-30-2019 End: 32-75-8202Jtysrcedid hospital visit by Jose Eduardo HerNVJEET Laboratory Comment on above:Splenic vein thrombosisStart: 10-25-2019 End: 91-31-7522Dxnjfaqvck hospital visit by [facility] Med Onc Room 7 [facility] MED ONCComment on above:Malignant neoplasm of sigmoid colon (HCC) (Primary Dx); Encounter for care related to vascular access portStart: 10-09-2019 End: 20-70-0159Ffjonybgzw hospital visit by Jose Eduardo Basurto Laboratory Comment on above:Splenic vein thrombosisStart: 09-17-2019 End: 09-12-9225Ucsbddpzvy hospital visit by Jose Eduardo Basurto Laboratory Comment on above:Splenic vein thrombosisStart: 09-03-2019 End: 03-42-3987Ufjyipienu hospital visit by Jose Eduardo HerNVJEET Laboratory Comment on above:Splenic vein thrombosisStart: 08-20-2019 End: 33-43-4057Ltddblqnta hospital visit by Jose Eduardo Basurto Laboratory Comment on above:Splenic vein thrombosisStart: 08-13-2019 End: 92-38-6801Tnloophvja hospital visit by Jose Eduardo Basurto Laboratory Comment on above:Splenic vein thrombosisStart: 08-06-2019 End: 93-10-5565Tnpukehmxp hospital visit by Jose Eduardo HerNVJEET Laboratory Comment on above:Splenic vein thrombosisStart: 07-19-2019 End: 89-17-5699Xpajmxtjqd hospital visit by [facility] Med Onc Room 4 [facility] MED ONCComment on above:Malignant neoplasm of sigmoid colon (HCC) (Primary Dx); Encounter for care related to vascular access portMalignant neoplasm of sigmoid colon (HCC); Chemotherapy induced neutropenia (HCC)Start: 06-21-2019 End: 99-79-7471Ljpxvysvhd hospital visit by [facility] Med Onc Room 3 [facility] MED ONCComment on above:Encounter for care related to vascular access port (Primary Dx); Malignant neoplasm of sigmoid colon (HCC)Start: 06-19-2019 End: 25-42-1202Bqnmmishzt hospital visit by physicianW[facility] Med Onc Lab Schedule [facility] MED ONCComment on above:Malignant neoplasm of sigmoid colon (HCC) (Primary Dx); Encounter for care related to vascular access portStart: 06-07-2019 End: 54-38-1526Aawtmqdvrz hospital visit by [facility] Med Onc Room 4 [facility] MED ONCComment on above:Encounter for care related to vascular access port (Primary Dx); Malignant neoplasm of sigmoid colon (HCC)Start: 06-05-2019 End: 54-77-6513Afpqleqlzg hospital visit by physicianW[facility] Lab [facility] MED ONCComment on above:Malignant neoplasm of sigmoid colon (HCC) (Primary Dx); Encounter for care related to vascular access portStart: 05-24-2019 End: 62-36-8889Vkdretsojx [facility] Comment on above:Encounter for care related to vascular access port (Primary Dx); Malignant neoplasm of sigmoid colon (HCC)Start: 05-22-2019 End: 60-57-2378Yrijajapjm hospital visit by physicianW[facility] Lab [facility] MED ONCComment on above:Malignant neoplasm of sigmoid colon (HCC) (Primary Dx); Encounter for care related to vascular access portStart: 05-10-2019 End: 90-05-7483Vtnmdphdte hospital visit by [facility] ONC Comment on above:Encounter for care related to vascular access port (Primary Dx); Malignant neoplasm of sigmoid colon (HCC)Start: 05-08-2019 End: 55-59-2266Gulsbirvvj hospital visit by physicianW[facility] Lab [facility] MED ONCComment on above:Encounter for care related to vascular access port (Primary Dx); Malignant neoplasm of sigmoid colon (HCC)Start: 04-26-2019 End: 57-54-9587Ffxlymiejl hospital visit by [facility] MED ONC Comment on above:Encounter for care related to vascular access port (Primary Dx); Malignant neoplasm of sigmoid colon (HCC)Start: 04-24-2019 End: 75-12-8002Ntpdocimno [facility] MED ONCComment on above:Malignant neoplasm of sigmoid colon (HCC) (Primary Dx); Encounter for care related to vascular access portStart: 04-12-2019 End: 52-94-0713Rgmgjwvylv [facility] Comment on above:Encounter for care related to vascular access port (Primary Dx); Malignant neoplasm of sigmoid colon (HCC)Start: 04-09-2019 End: 21-35-3817Duogqqsbmc [facility] Comment on above:Malignant neoplasm of sigmoid colon (HCC) (Primary Dx); Encounter for care related to vascular access portStart: 03-14-2019 End: 70-93-4273Fpaacsogat hospital visit by [facility] Med Onc Room 1 [facility] MED ONCComment on above:Encounter for care related to vascular access port (Primary Dx); Malignant neoplasm of sigmoid colon (HCC)Start: 03-12-2019 End: 69-10-7843Rsanlfmvjt hospital visit by [facility] Med Onc Room 6 [facility] MED ONCComment on above:Malignant neoplasm of sigmoid colon (HCC) (Primary Dx); Encounter for care related to vascular access portStart: 03-06-2019 End: 37-83-6276Zeqwcakxny hospital visit by physicianW[facility] Med Onc Room 6 [facility] MED ONCComment on above:Malignant neoplasm of sigmoid colon (HCC) (Primary Dx); Encounter for care related to vascular access portStart: 02-20-2019 End: 67-03-1816Rlwjspjatq hospital visit by [facility] Med Onc Room 6 [facility] MED ONCComment on above:Malignant neoplasm of sigmoid colon (HCC) (Primary Dx); Encounter for care related to vascular access portStart: 02-08-2019 End: 68-21-7560Broeblemzu hospital visit by physicianW[facility] Med Onc Room 1 [facility] MED ONCComment on above:Encounter for care related to vascular access port (Primary Dx); Malignant neoplasm of sigmoid colon (HCC)Start: 02-06-2019 End: 50-11-0648Ttrbzkkwrt hospital visit by physicianW[facility] Med Onc Room 6 [facility] MED ONCComment on above:Malignant neoplasm of sigmoid colon (HCC) (Primary Dx); Encounter for care related to vascular access portStart: 01-30-2019 End: 81-89-3500Illjieuibt hospital visit by [facility] Med Onc Room 3 [facility] MED ONCComment on above:Malignant neoplasm of sigmoid colon (HCC) (Primary Dx); Encounter for care related to vascular access portStart: 01-16-2019 End: 65-34-9231Scbhzfgotm hospital visit by [facility] Med Onc Room 3 [facility] MED ONCComment on above:Malignant neoplasm of sigmoid colon (HCC) (Primary Dx); Encounter for care related to vascular access portStart: 01-04-2019 End: 23-18-0769Qjldbdsmth hospital visit by [facility] Med Onc Room 1 [facility] MED ONCComment on above:Encounter for care related to vascular access port (Primary Dx); Malignant neoplasm of sigmoid colon (HCC)Start: 01-02-2019 End: 18-05-4359Ebgfauvvkv hospital visit by [facility] Med Onc Room 8 [facility] MED ONCComment on above:Malignant neoplasm of sigmoid colon (HCC) (Primary Dx); Encounter for care related to vascular access portStart: 12-26-2018 End: 12-06-6080Lsuwxnjroo hospital visit by Linh Ramirez Work Phone: mthz CATH LABComment on above:ArrivedStart: 12-25-2018 End: 58-67-2362Ujljlkoeml hospital visit by [facility]ardo [facility] Laboratory Procedures DateProcedureProcedure DetailPerforming ClinicianStart: 78-85-3799Mfxzi metabolic panel calcium totalAli F Mya Loyd MD Work Phone: Start: 58-66-6128Pj head/brain w/o contrast material Billy Chatman DO Work Phone: Start: 85-41-8148Ibgfyqcshpkcm metabolic panelScarmen Chatman DO Work Phone: Start: 30-89-0918Bfoiznnjkg exam chest single view Billy Chatman DO Work Phone: Start: 04-03-3888Bwb routine ecg w/least 12 lds w/i&r Billy N Swade DO Work Phone: Start: 18-51-4330PhyhvrnuzhMbllq Viral LABORATORY DIRECTOR-C Work Phone: Start: 74-75-2857DngzimjsbglGvqfpic Swade DO Work Phone: Start: 49-75-8386XBT ANGIOGRAPHY OU (BOTH EYES)Milton Isaacs MD Work Phone: Start: 23-14-5875Kuoswwpvtrwc ophthalmic imaging retinaSmerna Isaacs MD Work Phone: Start: 41-82-7155Dbcfxetznfhvb metabolic panelRaymundo Luque MD Work Phone: Start: 62-18-1655Enac tthrc r-t 2d w/wom-mode compl spec&colr Rodney Loyd MD Work Phone: Start: 73-81-4886Gszerfpcooswl metabolic panelRaymundo Luque MD Work Phone: Start: 67-62-3134Mtr sgm imaging w/microscopy endothelial Pedro Bloom MD Work Phone: Start: 11-57-4663Whkyxmhrwwiw ophthalmic imaging Sheri Arenas MD Work Phone: Start: 37-26-1851Avuzcxbujrnye metabolic panelRaymundo Luque MD Work Phone: Start: 01-27-2024 End: 29-76-8515Yaezrfhosumk ophthalmic imaging retinaPhdayanna Arenas MD Work Phone: Start: 10-26-2023 End: 78-04-9243Bkhljrhdzaxo ophthalmic imaging Giacomo Paris MD Work Phone: Start: 66-92-0246Ynowivgcgxuzt metabolic panelRaymundo Luque MD Work Phone: Start: 08-18-2023 End: 79-52-8925Ljzuijcveczv ophthalmic imaging Tyrone Isaacs MD Work Phone: Start: 35-77-4391Mismc ocular photog w/i&r [facility] medical progreReflor Patton OD Work Phone: Start: 64-31-8488Bungp 1995 panel - Serum or Plasma Eric Patton OD Work Phone: Start: 59-92-6650Lnaslwjkifvyq metabolic panelArpita Connolly MD Work Phone: Start: 80-33-9891Ju lumbar spine w/o contrast material Farnaz Tracey PA-Diane Work Phone: Start: 03-17-2023 End: 00-03-8832Pssdbkwjhozz ophthalmic imaging retinaSmerna Isaacs MD Work Phone: Start: 63-78-5504Uwwxvaghpukvo metabolic Wagner Connolly MD Work Phone: Start: 32-52-0523Sv thorax w/contrast materialMotariq Connolly MD Work Phone: Start: 07-06-2022H/O: surgeryHistory of detached retina repair both eyesMolashonda Moncada MD Work Phone: Start: 07-06-2022 End: 97-86-4765Fjkqhzqkcwxr ophthalmic imaging retinaMolashonda Moncada MD Work Phone: Start: 65-92-5572Qlwdfxkvssfpr metabolic Wagner Connolly MD Work Phone: Start: 37-06-0748Rpbrk 1995 panel - Serum or Plasma Milton Isaacs MD Work Phone: Start: 45-83-5848Zddstqfcocpl ophthalmic imaging optic nerveDuy Gonzalez MD Work Phone: Start: 02-17-2022 End: 21-09-2746Ubqiik field xm uni/bi w/interp extended examDuy Gonzalez MD Work Phone: Start: 02-04-2022 End: 82-27-4665Fqbbpgnxtyro corneal topography uni/biWan Bloom MD Work Phone: Start: 01-25-9302Bve orbit face & neck w/o & w/contrast April Gonzalez MD Work Phone: Start: 73-31-6369Atzdlkukkkmi ophthalmic imaging optic nerveDericki Gonzalez MD Work Phone: Start: 90-09-8409Laopvk field xm uni/bi w/interp extended examDericki Gonzalez MD Work Phone: Start: 12-29-2021 End: 75-94-9432Quunlu photography w/interpretation & reportMolashonda Moncada MD Work Phone: Start: 45-11-5629Vefwgveymckp ophthalmic imaging retinaMolashonda Moncada MD Work Phone: Start: 12-29-2021H/O: cornea recipientStatus post corneal transplantMolashonda Moncada MD Work Phone: Start: 12-29-2021H/O: surgeryHx of detached retina repairMolashonda Moncada MD Work Phone: Start: 52-80-1827Wdrnbkuutngl ophthalmic imaging retinaPeter Isaura Banerjee MD Work Phone: start: 01-52-5116Ce abdomen & pelvis w/contrast materialMohamluis f Connolly MD Work Phone: Start: 66-03-7731Juuordhhxuqpx metabolic panelMotariq Connolly MD Work Phone: Start: 48-29-8894Qnqalycsxl microscopic onlyAfsaneh Tomas PA-C Work Phone: Start: 34-26-2242Zqkfp dip stick/tablet rgnt auto w/o microscopyAfsaneh Tomas PA-C Work Phone: Start: 98-63-6012Usoxfrhokx exam chest 2 viewsAfsaneh PUENTES-C Work Phone: Start: 92-22-2189Nkzdcekzkql peptideAfsaneh Moses Thom CORDERO Work Phone: Start: 35-25-3183Bcc routine ecg w/least 12 lds w/i&r Rivka R Gastelum DO Work Phone: Start: 95-52-1815Zkrtpdyglfthr metabolic panelMohammad A Lorena RODRIGUEZ Work Phone: [phone]: 32-15-8174Mhardmobvitng metabolic panelMohammad A Lorena RODRIGUEZ Work Phone: [phone]: 24-80-7759Bfize of ferritinMohammad A [facility] Hospital [facility] CantonNswillow Work Phone: Start: 34-65-6256Vmkpf count complete auto&auto difrntl wbcMohammad A [facility] CantonSMS GupShupwillow Work Phone: Start: 90-13-2081Aebnfiopdboixjvk antigen ceaMohammad A [facility]ill[facility] Work Phone: Start: 20-12-2629Kesxyomzztgyi metabolic panelMohammad A OrCode for Americawillow Work Phone: Start: 13-05-7119Ecdr rohit ctr vad w/subq port/oracle ebs consultant ctr/prph insjMohammad A [facility]-Nswillow Work Phone: Start: 90-22-3708Qwpme of ferritinMohammad A [facility]-Nswillow Work Phone: Start: 84-65-7722Qbvdj count complete auto&auto difrntl wbcMohammad A Al-Nsour Work Phone: Start: 10-62-9242Qmodjqteudfmubpw antigen ceaMohammad A -Ns Work Phone: Start: 53-32-4877Ptgexevaqwvvi metabolic panelMohammad A Or-Nswillow Work Phone: Start: 41-58-2247Xsyglhskndi timeMohammad A Al-Nswillow Work Phone: [phone]: 88-47-3566Qtcuwatkhkf Peter Crawford Work Phone: Start: 44-83-3719PphvpgxpfdgGlxly Brown MD Work Phone: [phone]: 87-66-2434HyudwqjtiadCwflt BROWN comment on above:post colon CAStart: 90-10-4264JSVML-19 AMBULATORYBecky WardStart: 32-73-1986Rcbqrgenobj timeMohammad A Al-Nsour Work Phone: [phone]: 66-26-3781Vkzjrnfqavl timeMohammad A Al-Nsour Work Phone: [phone]: 93-49-3620Medrksbehrd timeMohammad A Al-Nsour Work Phone: [phone]: 03-25-2658Bftbdeeucnc timeMohammad A Al-Nsour Work Phone: [phone]: 49-15-8761Nmlhx count complete auto&auto difrntl wbcMohammad A Al-Nsour Work Phone: [phone]: 08-36-1009Zfnmkpttxwypyqvn antigen ceaMohammad A Al-Nsour Work Phone: [phone]: 43-26-7464Rzymyyiqginms metabolic panelMohammad A Al-Nsour Work Phone: [phone]: 92-61-2327Rirotaedlbt timeMohammad A Al-Nsour Work Phone: [phone]: 75-28-5463Vihaaczxqgo timeMohammad A Al-Nsour Work Phone: Start: 69-25-5987Izitwmsbrlg timeMohammad A Al-Nsour Work Phone: [phone]: 19-98-0906Esgqldyzxfn timeMohammad A Al-Nsour Work Phone: Start: 97-51-1806Xmeloypdayw timeMohammad A Al-Nsour Work Phone: [phone]: 18-70-0645Qqkzyyohlzg timeMohammad A AnimailSabrina Work Phone: [phone]: 75-77-7802Ch abdomen & pelvis w/contrast materialMohammad A JackCode for Americawillow Work Phone: [phone]: 36-83-4039Syysl count complete auto&auto difrntl wbcMohammad A GlowblCriss Work Phone: [phone]: 70-04-3084Dukrvbnjogezzvbr antigen ceaMohammad A INDOMwillow Work Phone: [phone]: 40-55-7581Nkwvcpwqvihcx metabolic panelMohammad A GlowblCriss Work Phone: [phone]: 24-05-7031Wtraq count complete auto&auto difrntl wbcAdnan R Rebel Work Phone: [phone]: 19-14-1752Bhuieyimstcabsdd antigen ceaAdnan R Rebel Work Phone: [phone]: 01-73-2126Cqokvyciojnbg metabolic panelAdnan R Rebel Work Phone: [phone]: 98-31-7711Fakem count complete auto&auto difrntl wbcAdnan R Rebel Work Phone: [phone]: 01-99-3355Xyhoaqvbvkzddmzl antigen ceaAdnan R Rebel Work Phone: [phone]: 97-60-1791Aafmzrzzepyvl metabolic panelAdnan R Jack-Balaji Work Phone: [phone]: 36-97-9066Grwke count complete auto&auto difrntl wbcAdnan R Jack-Balaji Work Phone: [phone]: 81-64-0348Jdenhnwkqiuivfvy antigen ceaAdnan R Jack-Balaji Work Phone: [phone]: 18-49-5878Ehwzhglzcxpnz metabolic panelAdnan R Jack-Balaji Work Phone: Start: 70-41-8727BBHFZSGA PLATELET FRACTIONAdmerari Arnold Rebel Work Phone: Start: 77-13-5406Cigamakzwwasw metabolic panelRaymundo Luque MD Work Phone: Start: 58-19-1482Yfnexblqjdqnd metabolic panelRaymundo Luque MD Work Phone: Start: 92-30-7170Nnkkocchfjmts metabolic panelAdmerari Luque MD Work Phone: Start: 86-40-0966Kwuwg count complete auto&auto difrntl wbcAdmerari Arnold Rebel Work Phone: Start: 90-59-7811Vxqnpzzxoyxab metabolic panelRaymundo Luque Work Phone: Start: 41-83-0839Cvwua count complete auto&auto difrntl wbcRaymundo Arnold Rebel Work Phone: Start: 60-29-6163Hiomafekzkbulfta antigen ceaRaymundo Clayton Luque Work Phone: Start: 69-67-3043Kofjvephfgija metabolic panelRaymundo R Rebel Work Phone: Start: 56-18-9610Uageq count complete auto&auto difrntl wbcRaymundo Arnold Rebel Work Phone: Start: 57-92-1628Zqbyrchmnetfikvf antigen ceaAdmerari Arnold Rebel Work Phone: Start: 91-68-3578Sgfszqhqlqtlu metabolic panelAdmerari R Rebel Work Phone: Start: 97-79-8232Jabbq count complete auto&auto difrntl wbcAdmerari R Rebel Work Phone: Start: 56-53-4064Udzuiqcdhsjht metabolic panelAdmerari R Rebel Work Phone: Start: 41-05-7498Ffgkx count complete auto&auto difrntl wbcAdmerari Luque Work Phone: Start: 39-50-3330Ygwyunychluwodft antigen ceaRaymundo Luque Work Phone: Start: 04-01-8344Cewdhborkittl metabolic panelAdmerari Luque Work Phone: Start: 74-28-1896Mhlbv count complete auto&auto difrntl wbcAdmerari Luque Work Phone: Start: 94-89-0622Zahmrxnkshnwksje antigen ceaAdmerari Luque Work Phone: Start: 54-67-5351Sewaldkrffwxx metabolic panelRaymundo Luque Work Phone: Start: 16-49-8264Ysvmi count complete auto&auto difrntl wbcAdmerari Luque Work Phone: Start: 83-22-2700Ecjramckyqthzfoo antigen ceaRaymundo Luque Work Phone: Start: 46-36-0567Mphgerecshjmi metabolic panelRaymundo Luque Work Phone: Start: 65-55-6999Iaue, indwelling, impAdmerari Luque Work Phone: Start: 55-30-8807Aqlel count complete automatedAlec Isaura Ramirez Work Phone: Start: 88-01-6410Ilgrlatyhls timeShakiland Isaura Ramirez Work Phone: Start: 20-71-7716Gnrewihygloxkr time partial plasma/whole bloodAlec Delarosa Ramirez Work Phone: Start: 68-40-5949Wqvujiif of colonGilma [employer] cryo cervix 1990'Brad ARDEN H/O: cornea recipientCornea replaced by transplant Reecha Kampani OD Work Phone: [phone]/O: cornea recipientCornea replaced by transplant Reecha Kampani OD Work Phone: [phone]/O: cornea recipientCornea replaced by transplant Reecha Kampani OD Work Phone: [phone]/O: surgeryHistory of detached retina repairWan Bloom MD Work Phone: [phone]/O: surgeryS/P eye surgeryBlaise Lopez MD Work Phone: [phone]/O: surgeryS/P eye surgeryTati Arenas MD Work Phone: [phone] retinal detachment [facility] 2014Vicki [facility] Plan of Treatment DateCare ActivityDetailAuthorStart: 45-68-4124Gcgsnuzujwv Syncytial Virus (RSV) or age 60 yrs+ (1 - 1-dose 75+ series)Respiratory Syncytial Virus (RSV) or age 60 yrs+ (1 - 1-dose 75+ series)Bon [facility] HospitalStart: 71-02-4854Zaddy panelLipid ScreeningBrown Memorial Hospitaltart: 27-69-6526Rintltzpw for malignant neoplasm of colonSouthern Virginia Regional Medical Centerart: 62-84-2006Hgsfprzx ScreeningDiabetes ScreeningBrown Memorial Hospitaltart: 13-50-5951Pnvlc 1996 panel - Serum or PlasmaLipid ScreeningBrown Memorial Hospitaltart: 41-36-1972Ikjsi panelBON [facility]ITALStart: 89-11-3988Dkudwuhe ScreeningDiabetes Screening [facility] Hospitaltart: 67-74-3530NEQYH SCREENLIPID SCREENBrown Memorial Hospitaltart: 11-80-3831Hbkcmzxr ScreeningDiabetes ScreeningBrown Memorial Hospitaltart: 06-27-2026 Diabetes ScreeningDiabetes ScreeningBrown Memorial Hospitaltart: 14-29-5675Ykhqvmeu ScreeningDiabetes ScreeningBrown Memorial Hospitaltart: 65-19-1479dvcbajhrwwWsrcpbufyl Facility:[facility] Hospitaltart: 35-59-0957BBC test (Diabetes, CKD 3-4, OR last GFR 15-59)GFR test (Diabetes, CKD 3-4, OR last GFR 15-59)[facility] Start: 89-32-6291Qvauhvbc ScreeningDiabetes ScreeningBrown Memorial Hospitaltart: 03-70-2563AJV test (Diabetes, CKD 3-4, OR last GFR 15-59)GFR test (Diabetes, CKD 3-4, OR last GFR 15-59)Bon [facility] HospitalStart: 70-77-3535pinyziiirg AmbulatoryFacility:EU NorwalkStart: 05-15-2025 End: 67-89-4903Rbssfbg encounter fvudzbgid20/28/2026 1:15 PM EST Office Visit [facility] Part of [address] [phone] Raymundo Luque MD [address] [place], [place] [phone] follow [facility] Part of [facility] Institute Of LivingComment on above:follow upStart: 04-25-2025 End: 96-24-5853Jhbkhrv encounter hikphzkso88/08/2026 10:15 AM EST Office Visit [facility] Ophthalmology [address] [address] Wan Bloom MD [address] [place] [address] Diagnostics, [facility] [address] [address] Return in about 6 months (around 04/27/2025).OphthalmologyComment on above:Return in about 6 months (around 04/27/2025).Start: 04-01-2025 End: 63-01-7222Teljzst encounter gyekfvssj60/15/2025 11:20 AM EST Office Visit [facility] Part of [address] [phone] Shadi Loyd MD [address] [place] [phone] [address] [facility] Part of The Institute Of LivingComment on above:6 monthStart: 37-25-2201KOB test (Diabetes, CKD 3-4, OR last GFR 15-59)GFR test (Diabetes, CKD 3-4, OR last GFR 15-59)Bon [facility] HospitalStart: 02-02-7630KRROWCOS SCREENDIABETES SCREENBrown Memorial Hospitaltart: 19-32-4984KLAVK-19 Vaccine ( season) COVID-19 Vaccine ( season)Bon [facility] HospitalStart: 12-17-2024 Influenza vaccinationInfluenza Vaccine (#1)[facility] Hospitaltart: 12-05-2024 [facility]: 54-96-6308SnvktbyhzProtestant Hospitaltart: 81-85-2849Amtxuz abdominal X-rayCore[facility] Start: 11-22-2024 End: 34-59-5057Lherkw fundoscopyFUNDUS PHOTOS OU (BOTH EYES) [facility] Imaging Routine 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 Work Phone: Comment on above:Expected: 11/22/2024, Expires: 05/01/2025Start: 02-73-8130Xjlkjdqrx vaccinationCarilion Roanoke Memorial HospitalStart: 10-24-2024 End: 49-96-9194Tivncmn encounter /09/2025 11:30 AM EDT Office Visit [facility] [place] [address] Raymundo Luque MD [address] [place] [address] [facility] Part of The Institute Of LivingComment on above:colon cancerStart: 10-11-2024 End: 80-67-2971Ljnngqn encounter gfekzhbfp60/26/2025 11:00 AM EDT Appointment [facility] [address] [facility] [place] [address] bsqtvwj 2 of 3 [facility] MED ONCComment on above:venofer 2 of 3Start: 10-03-2024 End: 32-15-4936Zwiscjq encounter pincldhat25/18/2025 10:30 AM EDT Appointment [facility] Non-Invasive Cardiology [address] [place] [address] Shadi Loyd MD [address] [place] [address] [place] [phone] [facility] Non-Invasive CardiologyComment on above:Epic/PtStart: 09-27-2024 End: 28-91-1539Nwxudgw encounter rwogduxke60/12/2025 11:00 AM EDT Appointment [facility] [address] [place] [address] xrcqxiz 2 of 3 [facility] MED ONCComment on above:venofer 2 of 3Start: 09-25-2024 End: 35-23-6991Ssylwmm encounter ljgggpmov24/10/2025 10:20 AM EDT Office Visit [facility] Part of [address] [place] [address] Shadi Loyd MD [address] [place] [address] [place] [address] 6 [facility] CARD[facility]OLOG[facility] Part [facility] on above:6 monthStart: 09-05-2024 End: 35-92-8832Fjpcnvk encounter fodwutgkq64/21/2025 10:30 AM EDT Office Visit 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 Expected: 09/01/2024, Expires: 02/08/2025[facility] Work Phone: comment on above:Expected: 09/01/2024, Expires: 02/08/2025Start: 08-16-2024 End: 80-29-4198Mlqtdrf encounter xzwzqoojg24/01/2025 8:15 AM EDT Office Visit [facility] Ophthalmology [address] [phone] Wan Bloom MD [address] [place] [address] Follow up per patient va iop ouOphthalmologyComment on above: Follow up per patient va iop ouStart: 21-53-2947Vkqpc panelLipidsRIVERSIDE BEHAVIORAL HEALTH CENTERStart: 05-24-2024 End: 28-97-0005Bnmedfc encounter wnpiqndju96/06/2025 10:15 AM EST Office Visit [facility] Ophthalmology [address] [address] Milton Isaacs MD [address] [place] [address] move the appt with Angela to 05/27/2024OphthalmologyComment on above:move the appt with Angela to 05/27/2024Start: 05-03-2024 End: 07-33-5782WHGJRXS ELECTROPHORESIS SERUM W/INTERPCCommunity Memorial Hospital Work Phone: Comment on above:Expected: 05/03/2024, Expires: 08/02/2024Start: 28-54-2601Nzwcfis Directive DiscussionAdvance Directive DiscussionBrown Memorial Hospitaltart: 03-31-2024 End: 57-64-3336AMJ MACULA CIRRUS OU (BOTH EYES)OCT MACULA CIRRUS OU (BOTH EYES) [facility] Imaging Routine 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 Part of [address] [phone] Shadi Loyd MD [address] [place] [address] 3 month/[facility] Part [facility] HospitalComment on above:3 month/Start: 03-09-2024 End: 60-26-3381Ykpgfjh encounter urpiprphh35/22/2024 10:15 AM EST Office Visit [facility] Ophthalmology [address] [address] Tati Arenas MD [address] [place] [address] Return in about 6 weeks (around 03/09/2024).OphthalmologyComment on above: Return in about 6 weeks (around 03/09/2024).Start: 03-07-2024 End: 04-67-3073Wyexdsd encounter nqmskinjd80/20/2024 11:15 AM EST Office Visit [facility] Part of [facility] [address] [place], [place] [phone] Raymundo Luque MD [address] [place] [address] [facility] Part of The Institute Of LivingComment on above:colon cancerStart: 02-23-2024 End: 28-20-7484Exmcxxc encounter rigxxquku41/07/2024 10:30 AM EST Office Visit [facility] Ophthalmology [address] [address] Milton Isaacs MD [address] [place] [address] Return in about 6 months (around 02/18/2024).Ophthalmology Comment on above:Return in about 6 months (around 02/18/2024).Start: 02-14-2024 End: 04-02-3293Bqfafxj encounter ctiriuopo21/29/2024 2:00 PM EDT Office Visit [facility] Ophthalmology [address] [address] Wan Bloom MD [address] [place] [address] Follow up per patientOphthalmologyComment on above:Follow up per patientStart: 02-13-2024 End: 56-21-4688Vafkbsc encounter pivclmqao30/28/2024 9:40 AM EDT Office Visit [facility] Part of [address] [address] Shadi Loyd MD [address] [place] [phone] 3 [facility] CARDIOLOGY Part [facility] HospitalComment on above:3 monthStart: 01-27-2024 End: 02-96-0537Ncphzku encounter hartyijbz72/11/2024 10:00 AM EDT Office Visit [facility] Ophthalmology [address] [address] Tati Arenas MD [address] [place] [address] Return in about 2 months (around 01/25/2024).OphthalmologyComment on above: Return in about 2 months (around 01/25/2024).Start: 01-02-2024 End: 39-53-1462Atdjzng encounter winbzvfcb71/16/2024 2:45 PM EDT Office Visit Cardiology [address] [place] [address] Reji Richardson MD [address] [place] [address] Paroxysmal Atrial FibrillationCardiologyComment on above:Paroxysmal Atrial FibrillationStart: 01-02-2024 End: 23-97-7791rihggkpxhh29/16/2024 2:00 PM EDT Results Only Cardiology [address] [place] [address] Paroxysmal Atrial Fibrillation, CardiologyComment on above:Paroxysmal Atrial Fibrillation,Start: 12-18-2023 Covid-19 Vaccine ( season)Covid-19 Vaccine ( season) [facility]tart: 34-52-6486Ranpe-19 Vaccine ( season)Covid-19 Vaccine ( season)[facility]tart: 37-98-3907Muxwkaqgp vaccinationInfluenza Vaccine (#1)[facility] Hospitaltart: 11-25-2023 End: 28-64-3326Mqanhbb encounter ltiyqxcqj70/09/2024 12:30 PM EDT Office Visit [facility] Ophthalmology [address] [address] Tati Arenas MD [address] [place] [address] ONE MONTH POST OPOphthalmologyComment on above:ONE MONTH POST OPStart: 20-06-3822Mvlvrydjn vaccinationFlu vaccine (#1)[facility]ENTERStart: 11-08-2023 End: 90-71-9098Twqyidq encounter muebadazl98/23/2024 12:30 PM EDT Office Visit OP[facility] [address] [place] [address] Tati Arenas MD [address] [place] [address] ONE WEEK POST OPCole Eye AkronComment on above:ONE WEEK POST OPStart: 11-01-2023 End: 10-58-1058Gjhiami encounter rotewiupu93/16/2024 10:40 AM EDT Office Visit [facility] C[facility] [address] [place] [address] Shadi Loyd MD [address] [place] [phone] 3 [facility] CenterComment on above:3 monthStart: 10-27-2023 End: 49-91-5426Fgqfoqs encounter myapbsjcn07/11/2024 7:45 AM EDT Office Visit [facility] Ophthalmology [address] [address] [place] Opht [address] [place] [address] Vision/pupils/IOP surgical eye then page Dr. Lopez OphthalmologyComment on above:Vision/pupils/IOP surgical eye then page Dr. Veleztart: 10-26-2023 End: 01-46-4048Lkd retinal dtchmnt w/vitrectomy any [facility] Start: 10-26-2023 End: 08-32-4843Dpicsmz encounter ssqibswbl76/10/2024 8:30 AM EDT Office Visit [facility] Ophthalmology [address] [address] [place], [facility] Opht [address] [place] [address] ParisOphthalmologyComment on above:Pt for Dr. Huntart: 09-14-2023 End: 45-37-8914Sualuil encounter goxmxwyfz83/29/2024 10:45 AM EDT Office Visit [facility] Part of [address] [address] Raymundo Luque MD [address] [place], [place] [address] [facility] ON[facility] SPECIAL[facility] Part of [facility] Institute Of LivingComment on above:colon cancerStart: 07-26-2023 End: 73-10-2725Ysghzdu encounter eafypnbyc47/09/2024 10:40 AM EDT Office Visit [facility] Part of [address] [place] [address] Shadi Loyd MD [address] [place] [phone] 3 month follow [facility] CARDIOLOGY Part [facility] HospitalComment on above:3 month follow upStart: 06-26-2023 End: 76-94-0644Naewaoh encounter stsmtboup40/10/2024 8:00 PM EDT Appointment [facility] Sleep Center [address] [place] [address] Titration [facility] Sleep CenterComment on above:TitrationStart: 06-01-2023 End: 25-79-6980Ckblrad encounter enbljayrq41/14/2024 3:30 PM EST Office Visit [facility] Part of [address] [address] Raymundo Luque MD [address] [place], [place] [address] [facility] ONCOL[facility]Y SPECIAL[facility] Part of The Institute Of LivingComment on above:colon cancerStart: 05-26-2023 End: 19-41-1925Iralsse encounter xmtqqxycm92/08/2024 1:00 PM EST Appointment [facility] Physical Therapy [address] [place] [address] [phone] Hardik Torre, PT MEDICAREMTHZ Physical TherapyComment on above:MEDICAREStart: 05-24-2023 End: 69-40-8984Iummszz encounter yxntretrk65/06/2024 2:00 PM EST Appointment [facility] Physical Therapy [address] [place] [address] Ananth Lewis Physical TherapyStart: 05-19-2023 End: 47-34-1304Soddgvz encounter mnfovvemv83/01/2024 12:00 PM EST Appointment [facility] Physical Therapy [address] [place] [address] Ananth Lewis Physical TherapyStart: 05-17-2023 End: 32-13-1262Iqlhjms encounter /30/2024 2:45 PM EST Appointment [facility] Physical Therapy [address] [place] [address] Ananth Lewis Physical TherapyStart: 05-12-2023 End: 41-97-7980Qlllker encounter kkkitfqlb05/25/2024 1:30 PM EST Appointment [facility] Physical Therapy [address] [place] [address] Lina Humphreys PTAMTHZ Physical TherapyStart: 05-10-2023 End: 46-14-6285Npjamwc encounter /23/2024 1:30 PM EST Appointment [facility] Sleep Center [address] [place] [address] Home Sleep StudyPAN AMERICAN HOSPITAL Sleep CenterComment on above:Home Sleep StudyStart: 05-09-2023 End: 25-43-6881Fokpohf encounter ehmxlkzju14/22/2024 3:15 PM EST Appointment [facility] Physical Therapy [address] [place] [address] Hardik Torre PTMTHZ Physical TherapyStart: 05-05-2023 End: 68-08-0745Vznxyxy encounter epwqlwbps54/18/2024 1:00 PM EST Appointment [facility] Physical Therapy [address] [place] [address] Hardik Torre PTMTHZ Physical TherapyStart: 05-04-2023 End: 58-38-9111Hduoydi encounter procedureWyandot [facility] Start: 04-29-2023 End: 55-45-0498Wxibbhc encounter ufswsyycz09/12/2024 9:20 AM EST Office Visit [facility] Part of [address] [place] [address] Shadi Loyd MD [address] [place] [address] [place] [address] [address] Part [facility] HospitalComment on above:Hospital follow upStart: 49-86-6177Hzsgfii Directive DiscussionAdvance Directive Discussion [facility]tart: 53-20-7530Kmvjs panelLipidsBON [facility]: 34-14-2236Hewbuu Wellness Visit (Medicare)Annual Wellness Visit (Medicare)[facility]ON [facility]: 32-99-9602Taemwywjr for malignant neoplasm of colon [facility]: 14-71-6931Cjkwg-19 Vaccine ( season)Covid-19 Vaccine ( season)[facility] Hospitaltart: 11-26-2022 End: 27-86-7314CJU MACULA CIRRUS OU (BOTH EYES)OCT MACULA CIRRUS OU (BOTH EYES) [facility] Imaging Routine 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 Part [facility]: 07-21-2022 End: 88-07-8284Ngnqfoc encounter okiulqvhm68/05/2023 Office Visit Oncology Arpita Parker MD [address] [place] [address] [facility]: 06-23-2022 End: 31-20-2024Gcjjsqd encounter qtskyjwgy65/08/2023 Office Visit Oncology Arpita Parker MD [address] [place] [address] [facility]: 86-24-6397NEHVDVX DIRECTIVE DISCUSSIONADVANCE DIRECTIVE DISCUSSIONBrown Memorial Hospitaltart: 01-08-2022 End: 47-76-4987Wenrfadqmq A1c in BloodHGB A1C Lab Routine Primary hypertension Other abnormal glucose Expected: 01/08/2022, Expires: 03/10/2022[facility] Work Phone: Comment on above:Expected: 01/08/2022, Expires: 03/10/2022tart: 01-08-2022 End: 85-11-3447Sxbdt 1996 panel - Serum or PlasmaLIPID PANEL BASIC Lab Routine Primary hypertension Expected: 01/08/2022, Expires: 03/10/2022[facility] Work Phone: Comment on above:Expected: 01/08/2022, Expires: 03/10/2022tart: 23-28-7298Knewzssdx vaccinationINFLUENZA (#1)[facility] Start: 01-72-6809Ttlybwhds vaccinationFlu vaccine (#1)[facility] Start: 07-08-2021 End: 71-59-5323Gkuucrz encounter vvnevjkog24/23/2022 Office Visit Oncology Arpita Parkre MD [address] [place] [address] [facility] Part of [facility]: 65-34-8472VNYLYJZ DIRECTIVE DISCUSSIONADVANCE DIRECTIVE DISCUSSIONBrown Memorial Hospitaltart: 16-23-5940VnettsakxqfYRHWLMJAIZIRetduojxg ClinicStart: 01-14-2021 COLORECTAL CANCER SCREENINGCOLORECTAL CANCER SCREENINGBrown Memorial Hospitaltart: 12-37-1594Srzkvlrvj for malignant neoplasm of colonBrown Memorial Hospitaltart: 01-07-2021 End: 01-56-2770Dhzzzzl encounter cmivduiin40/22/2021 Office Visit Oncology Arpita Parker MD [address] [facility] [address] [place], [place] [id number] [place] [address] [facility] 12-17-2020 Influenza vaccinationFlu vaccine (#1)[facility] Work Phone: start: [id number] SCREENDIABETES SCREEN [facility]: 09-03-2020 End: 30-55-9492Xqiqbpb encounter qhtgiwmdk60/19/2021 Office [place] [address] [place] [address] [facility]: 05-14-2020 End: 29-41-6964Bskmbn Visit05/14/2020 Office Visit Oncology Arpita Connolly [facility] [address] [facility] [address] ONCOLOGY SPECIALISTS [facility]: 51-24-4311Dwnbsg Wellness Visit (AWV)Annual Wellness Visit (AWV)[facility]: 24-01-0116Ozcziiioxcyg 65+ years Vaccine (1 of 1 - PPSV23)Pneumococcal 65+ years Vaccine (1 of 1 - PPSV23)[facility] CenterStart: 48-20-0238RAXXYOBMRRUS: 65+ (1 - PCV)PNEUMOCOCCAL: 65+ (1 - PCV)[facility] 12[facility]2020Medicare Annual Wellness Visit Medicare Annual Wellness VisitBrown [facility] Hospitaltart: 02-06-2020 End: 13-12-1748Ebzrhr Visit02/06/2020 Office Visit Oncology Arpita Connolly MD [address] [facility] ONCOLOGY SPECIALISTS [facility]: 01-15-2020 End: 01-37-8605Ktakinxq EncounterMTHZ ORComment on above:COLORECTAL CANCER SCREENING, HIGH RISKStart: 01-08-2020 End: 06-87-3222Amszvdhjgmi89/22/2020 Appointment Pre-Admission TestingMTHZ PRE ADMITStart: 12-20-2019 End: 81-39-6758Rkoinoxncjw75/03/2020 Appointment Infusion TherapyMTHZ MED ONC Start: 49-60-0120Qzywrpskg [place]: 11-22-2019 End: 73-12-8093Kcucjmnggop47/06/2020 Appointment Infusion TherapyMTHZ MED ONC Start: 10-31-2019 End: 10-80-5920Xafibr Visit10/31/2019 Office Visit Oncology Arpita Connolly MD [address] [place] [address] [place] [address] ONCOLOGY SPECIALISTS Part [facility]: 10-25-2019 End: 76-90-5054LulixzkyksyEJMZ MED ONCStart: 07-25-2019 End: 91-84-9262Tljgqu Visit07/25/2019 Office Visit Oncology Arpita Connolly MD [address] [facility] [place] [id number] [place] [address] ONCOLOGY SPECIALISTSStart: 07-19-2019 End: 41-91-7871AbelklglyzxPDHK MED ONCStart: 06-21-2019 End: 61-17-2327Ldticm [facility] ONCOLOGY SPECIALISTS Start: 06-21-2019 End: 71-75-8659Ijynwcmheey66/05/2020 Appointment Infusion TherapyMTHZ MED ONC Start: 06-19-2019 End: 22-36-9405Yevwqumftou13/03/2020 Appointment Infusion TherapyMTHZ MED ONC Start: 06-13-2019 End: 97-80-7961Radywt Visit06/13/2019 Office Visit Oncology Arpita Connolly MD [address] [facility] [place] [id number] [place] [address] ONCOLOGY SPECIALISTSStart: 06-07-2019 End: 10-63-8626Tkhzhcsrvbp11/20/2020 Appointment Infusion TherapyMTHZ MED ONC Start: 06-05-2019 End: 82-17-2492Gsfbckpjkqh59/18/2020 Appointment Infusion TherapyMTHZ MED ONC Start: 05-24-2019 End: 85-77-5949Clvyxiavbsp21/06/2020 Appointment Infusion TherapyMTHZ MED ONC Start: 05-23-2019 End: 10-55-1974Dptggi [facility] ONCOLOGY SPECIALISTS Start: 05-22-2019 End: 64-16-3580Unrzwrg encounter lrlptvwuy91/04/2020 Appointment Infusion TherapyMTHZ MED ONCStart: 05-10-2019 End: 41-16-8870Qoabkpj encounter dknepglix51/23/2020 Appointment Infusion TherapyMTHZ MED ONCStart: 05-08-2019 End: 31-12-6498Qzdmzji encounter drolyaxpy73/21/2020 Appointment Infusion TherapyMTHZ MED ONCStart: 04-26-2019 End: 65-00-3068Mjpwibk encounter xslobfcmz65/09/2020 Appointment Infusion TherapyMTHZ MED ONCStart: 04-25-2019 End: 46-83-7885Jnqwktv encounter snjymcjsn49/08/2020 Office Visit Oncology Raymundo Vargas MD [address] [facility] [address] [place] [address] [phone] [facility] Oncology SpecialistsStart: 04-24-2019 End: 88-88-0492Nttddho encounter yqxgezavn32/07/2020 Appointment Infusion TherapyMTHZ MED ONCStart: 04-12-2019 End: 89-71-8706Tpnbvwn encounter yldprjgop99/26/2019 Appointment Infusion TherapyMTHZ MED ONCStart: 03-29-2019 End: 92-34-1253Pilodsujlnt51/12/2019 Appointment Infusion TherapyMTHZ MED ONC Start: 03-28-2019 End: 75-36-7672Jjghwp Visit03/28/2019 Office Visit Oncology Raymundo Luque MD [address] [address] [phone] [facility] Oncology SpecialistsStart: 03-27-2019 End: 10-78-4410Wclrrtdcvqs17/10/2019 Appointment Infusion TherapyMTHZ MED ONC Start: 03-14-2019 End: 30-41-2794Xdtqubgxufs57/27/2019 Appointment Infusion TherapyMTHZ MED ONC Start: 03-12-2019 End: 89-70-6582Bkkbcexxvso61/25/2019 Appointment Infusion TherapyMTHZ MED ONC Start: 03-08-2019 End: 34-33-5903Nkstqybodip93/21/2019 Appointment Infusion TherapyMTHZ MED ONC Start: 03-07-2019 End: 84-08-9839Euihbp Visit03/07/2019 Office Visit Oncology Arpita Connolly MD [address] [phone] [facility] Oncology SpecialistsStart: 03-06-2019 End: 30-09-9435Gsjwnfipipl69/19/2019 Appointment Infusion TherapyMTHZ MED ONC Start: 02-22-2019 End: 43-81-7185Ejccotcolcq16/07/2019 Appointment Infusion TherapyMTHZ MED ONC Start: 02-20-2019 End: 15-86-6594Jhlqbqyhrqc77/05/2019 Appointment Infusion TherapyMTHZ MED ONC Start: 02-08-2019 End: 42-52-0888Gkabuqypqqt55/24/2019 Appointment Infusion TherapyMTHZ MED ONC Start: 02-07-2019 End: 24-13-4305Bezujs Visit02/07/2019 Office Visit Oncology Arpita Connolly MD [address] [place] [phone] [facility] Oncology SpecialistsStart: 02-06-2019 End: 69-56-6130Omlcwnjzpif54/22/2019 Appointment Infusion TherapyMTHZ MED ONC Start: 02-01-2019 End: 50-52-0683Exxhlxmygbb54/17/2019 Appointment Infusion TherapyMTHZ MED ONC Start: 01-30-2019 End: 85-33-4799Mmmugakemcw92/15/2019 Appointment Infusion TherapyMTHZ MED ONC Start: 01-18-2019 End: 75-65-8843Kuhhhezaiqd51/03/2019 Appointment Infusion TherapyMTHZ MED ONC Start: 01-16-2019 End: 57-74-3210Hpgezdvyhsq20/01/2019 Appointment Infusion TherapyMTHZ MED ONC Start: 01-10-2019 End: 75-73-3977Nlthks Visit01/10/2019 Office Visit Oncology Raymundo Luque MD [address] [place] [address] [phone] [facility] Oncology SpecialistsStart: 01-04-2019 End: 10-03-6035Kbjkqltamhx24/19/2019 Appointment Infusion TherapyNVHZ MED ONC Start: 12-26-2018 End: 14-36-4912Hptrnfsibid96/10/2019 Appointment Radiology Radiologist, Javon Gen MTHZ Special ProceduresStart: 85-84-1116Gniqiowlu vaccinationFlu vaccine (#1) [facility]: 00-44-5417Gqqqdtzcoasm 0-64 years Vaccine (3 of 3 - PCV13)Pneumococcal 0-64 years Vaccine (3 of 3 - PCV13)[facility]: 07-74-1203Txzakdwvkoea 65+ years Vaccine (2 - PCV)Pneumococcal 65+ years Vaccine (2 - PCV)[facility]: 47-72-9633CBYPHHMWKUFT: 65+ (2 - PCV)PNEUMOCOCCAL: 65+ (2 - PCV)[facility]: 56-59-8399Falgzdafoyw Syncytial Virus (RSV) or age 60 yrs+ (1 - 1-dose 60+ series)Respiratory Syncytial Virus (RSV) or age 60 yrs+ (1 - 1-dose 60+ series)[facility]: 04-88-1258Gdhbtnjqaxx Syncytial Virus (RSV) or age 60 yrs+ (1 - Risk 60-74 years 1-dose series)Respiratory Syncytial Virus (RSV) or age 60 yrs+ (1 - Risk 60-74 years 1-dose series)[facility]: 93-69-1276OSN Vaccine (1 - 1-dose 60+ series)RSV Vaccine (1 - 1-dose 60+ series)[facility]: 43-20-8053JZD Vaccine (1 - Risk 60-74 years 1-dose series)RSV Vaccine (1 - Risk 60-74 years 1-dose series)[facility]: 07-75-9877Kibacbwok for osteoporosisDEXA (modify frequency per FRAX score)[facility]: 83-47-0729Hzstxn cancer screenBreast cancer screen [facility]: 36-54-4121Ljews cancer screen colonoscopyColon cancer screen colonoscopyMemorial Health System [facility]: 34-61-6411Zaxqnmogt for malignant neoplasm of breastBreast cancer screenProMedica Flower Hospital: 97-08-2753Nfyrwzxow for malignant neoplasm of colonColon cancer screen colonoscopyStat[place], [place] Start: 72-16-5019Trunzxog Vaccine (1 of 2)Shingles Vaccine (1 of 2)[facility] Start: 70-17-0236PZGQMSDU VACCINE (1 of 2)SHINGRIX VACCINE (1 of 2)[facility]: 58-20-8280JOMROTSRX (FIT-DNA)COLOGUARD (FIT-DNA)[facility] Start: 96-79-0889FW COLONOGRAPHYCT COLONOGRAPHYBrown Memorial Hospitaltart: 2000 FECAL OCCULT BLOODFECAL OCCULT BLOODBrown Memorial Hospitaltart: 49-40-4001BNKLB SCREENLIPID SCREENBrown Memorial Hospitaltart: 27-23-7946Rexsgctpo for malignant neoplasm of colonProMedica Bay Park Hospitalart: 54-35-0877YRMULNPJCTXDDYSUBTANVGKOBD [facility]: 99-37-5670Hwhukbda screenDiabetes screenStaten Island, KYStart: 80-45-2246Zzuyu panelLipid screenCincinnati Va Medical CenterStart: 10-78-5824Rnzhw screenLipid screenStaten Island, KYStart: 59-87-7076LnfosdklaopWtziupxfc ClinicStart: 28-16-9795Udyjbqpzg for malignant neoplasm of breastBrown Memorial Hospitaltart: 72-60-4541Hmpeclla screenDiabetes [facility]art: 53-18-6652Bqkskdgpw for malignant neoplasm of cervixCincinnati Va [facility] Center Work Phone: start: 77-71-9854Mlgrabfs cancer screenCervical cancer screenStaten Island, KYStart: 33-88-5293Lvzqobihq for malignant neoplasm of cervixStaten [place], KYStart: 87-13-5149ZXpL/Tdap/Td vaccine (1 - Tdap) DTaP/Tdap/Td vaccine (1 - Tdap)[facility] CenterStart: 92-07-7488Foxky microalbumin profileBrown Memorial Hospitaltart: 33-25-0648WPEQFR PCP TEAM CHRONIC DISEASE VISIT ANNUAL PCP TEAM CHRONIC DISEASE VISITBrown Memorial Hospitaltart: 07-25-9345EL CONTROLLED (<130/80)BP CONTROLLED (<130/80)[facility]: 1973 Hepatitis C screeningHepatitis C [facility]: 1970 HIV screenHIV screenMemorial Health System Mari[facility]: 66-14-4317GGC screeningHIV screen [facility]: 51-00-7661DOGMK-19 Vaccine (1)COVID-19 Vaccine (1) [facility] [employer] Phone: start: 04-26-5990Lhyhohbtns ScreenDepression Screen [facility]: 31-94-6588TFnF/Tdap/Td vaccine (1 - Tdap)DTaP/Tdap/Td vaccine (1 - Tdap)[facility]: 26-50-2707BGIXB-19 Vaccine (1)COVID-19 Vaccine (1)[facility]: 58-16-3089JBIAE-19 VACCINE (#1)COVID-19 VACCINE (#1)[facility]: 86-37-1957Mbjwhzfys C screenHepatitis C [facility]: 30-00-5534Ponzmwjzp C screeningHepatitis C [facility] End: 65-63-5619Fxiydi fundoscopyFUNDUS PHOTOS OU (BOTH EYES) OPHT Imaging Routine 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 Work Phone: comment on above:1 Occurrences starting 06/18/2022 until 06/18/2022 End: 24-36-6082VMZ COMPLETEECG COMPLETE ECG Routine PAF (paroxysmal atrial fibrillation) (HCC) 1 Occurrences starting 11/11/2023 until 5C[facility] Work Phone: Comment on above:1 Occurrences starting 11/11/2023 until 11/10/2024EKG 12 LeadEKG 12 Lead ECG Routine 01/06/2021 11:33 AM [employer] Work Phone: ekg 12 LeadEKG 12 Lead ECG STAT 12/09/2024 12:22 PM EDTBon [facility] [employer] End: 97-22-8007Gxbrxdof cardiac holter monitor (3 days-14 day)BON [employer] TechnologyComment on above:1 Occurrences starting 11/10/2023 until 11/10/2023 End: 10-36-6430MHCZFG AUTOFLUORESCENCE PHOTO (FAF) OU (BOTH EYES)FUNDUS AUTOFLUORESCENCE PHOTO (FAF) OU (BOTH EYES) OPHT Imaging Routine 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1 Occurrences starting 03/17/2023 until 5C[facility] Work Phone: comment on above:1 Occurrences starting 03/17/2023 until 09/07/2024Initiate Oxygen Therapy ProtocolInitiate Oxygen Therapy Protocol Respiratory Care Routine Daily until discontinued starting 12/26/2018[facility] [place]Comment [place] above:Daily until discontinued starting 12/26/2018 End: 88-94-3194Wvz orbit face & neck w/o & w/contrast matrlMRI ORBIT WO/W IVCON Radiology STAT Optic disc edema 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 History of uveitis Pain in right eye 1 Occurrences starting 01/06/2022 until 02/05/2023 [facility] Work Phone: Comment on above:1 Occurrences starting 01/06/2022 until 02/05/2023 End: 68-05-6116XCN MACULA CIRRUS OU (BOTH EYES)OCT MACULA CIRRUS OU (BOTH EYES) OPHT Imaging Routine 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 1 Occurrences starting 11/24/2023 until 6[facility] ClinicComment on above:1 Occurrences starting 11/24/2023 until 05/17/2025OCT MACULA CIRRUS OU (BOTH EYES)OCT MACULA CIRRUS OU (BOTH EYES) OPHT Imaging Routine 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 11/25/2023 12:47 PM [facility]TC[facility] Patient EducationKnow your [facility] Work Phone: [facility] referralOhio Valley [facility] Work Phone: Pulse Oximetry Spot CheckPulse Oximetry Spot Check Respiratory Care Routine As Needed until discontinued starting 12/26/2018[facility] Medical CenterAcheive CCATOMComment on above:As Needed until discontinued starting 12/26/2018 End: 71-88-5976Lhxnp study with PAP titrationSleep study with PAP titration Sleep Center Routine KEREN (obstructive sleep apnea) 1 Occurrences starting 06/26/2023 until 06/26/2023ON [facility]ESNeotropix [facility] CENTERComment on above:1 Occurrences starting 06/26/2023 until 06/26/2023Surgical PathologySurgical Pathology Lab Routine Release Upon Ordering for 1 Occurrences starting 01/15/2020[facility] Medical CenterAcheive CCATOMComc.[facility]. [facility] on above:Release Upon Ordering for 1 Occurrences starting 01/15/2020[facility] Immunizations Immunization DateImmunizationNotesCare NjvsilarLihniwac87-04-1472Ycluzjpeogpe conjugate PCV20, polysaccharide LPK719 conjugate, adjuvant, PFGilma HER 422-9335Gmltnn-FrytlAkron Children'S Hospital 75-54-2421qrilwqgfe, high dose seasonal, preservative-freeGilma HER 660-5433Vsjojd-RtryyAkron Children'S Hospital 02-26-9955jxgtzddur virus vaccine, unspecified formulationSmerna Isaacs MD Work Phone: cTrinity Health SystemRhgclu61-11-2580gfbydwybj, high dose seasonal, preservative-freeGilma HER 077-6754Uloznz-DhscsAkron Children'S Hospital 38-93-9447zsfmhtuxj (HD-IIV4) vaccine, age 65+ yr, high dose, quadrivalent, PF (FLUZONE HIGH-DOSE)Jasper Banerjee MD Work Phone: Pmercy health st. [facility]ita's medical centerand Owpgak41-61-3175sohplnfxj virus vaccine, unspecified formulationGilma HER 048-7080Rdihkt-QcnpwAkron Children'S Hospital 89-54-2550iexwdlywd nasal, unspecified formulationJasper Banerjee MD Work Phone: Nmercy health st. rita's medical centerand Zlmxhu87-85-2959dhczhxlyo virus vaccine, unspecified formulationGilma HER [phone]-UcdfzAkron Children'S Hospital 39-11-6911Pbtvqvbfj, injectable, Madin [place] Canine Kidney, preservative free, quadrivalentJasper Banerjee MD Work Phone: Vmercy health st. rita's medical centerand Vkupsq71-08-5767csrczqtafwbi polysaccharide vaccine, 23 Bradley Banerjee MD Work Phone: Zleveland Msoche40-57-3499yxkqvoporeqe polysaccharide vaccine, 23 Teresita HER 564-5440Mthzxq-HnsxsAkron Children'S Hospital 98-52-5510pvqzamlto virus vaccine, unspecified formulationJasper Banerjee MD Work Phone: [facility] Work Phone: [phone] polysaccharide vaccine, 23 Bradley Banerjee MD Work Phone: [phone] Work Phone: [phone]: Highlighted row has not occurred!03-12-2024 influenza virus vaccine, unspecified formulationStacia Anderson 385-3434Dzzfiy-BognnMedina Hospital Babatunde NEGATED: Highlighted row has not occurred!75-28-2080ydlptzqvw virus vaccine, unspecified formulationGilma HER 340-1084Ysokoz-ViankMedina Hospital Babatunde Comment on above:Result Comment: Waiting until January.NEGATED: Highlighted row has not occurred!14-09-6375BQCB-CoV-2 mRNA (tozinameran 5y-11y) andriaGilma HER 200-0652Tipikm-LtwhoMedina Hospital Babatunde NEGATED: Highlighted row has not occurred!14-61-0925IULV-CoV-2 mRNA (tozinameran 5y-11y) andriaGilma HER 381-0372Dazkza-EcytuMedina Hospital Babatunde NEGATED: Highlighted row has not occurred!98-37-9202HPTR-CoV-2 mRNA (tozinameran 5y-11y) Chey HER 861-9549Nftjxx-VaiszMedina Hospital Babatunde NEGATED: Highlighted row has not occurred!91-15-4552wuqfuzswa virus vaccine, unspecified formulationGilma HER 596-0045Yrchor-FoilxMedina Hospital Babatunde NEGATED: Highlighted row has not occurred!77-61-1673EPWE-CoV-2 mRNA (tozinameran 5y-11y) andriaGilma HER 524-7887Raztcc-UwhfdMedina Hospital Babatunde Payers DatePayer CategoryPayerPolicy [id number] Health [id number] 31-20-0029Dpft-pay2020MedicareMEDICARE MEDICARE A AND B [id number] 2020-Present [phone] [address] [address] [place] [address] Medicare [id number] [id number]12035.46840-00-5999Bhaqjqb Health InsuranceHUMANA HUMANA MEDICARE SUPPLEMENT [id number] 2020-Present [phone] [address] [address] [place] [address] [id number] 1.2.840.072697.1.13.159.2.7.3.115301.315 2020Medicare 1.2.840.025520.1.13.159.2.7.3.260806.26823-60-2239Idoiowp Health Insurance 1.2.840.287340.1.13.159.2.7.3.287152.87600-91-5349YctskynEUEWMIR [facility] - EXCHANGE [id number] 2019-Present [phone] [address] [place], [place] [id number] 1.2.840.918307.1.13.239.2.7.3.402991.64-37-3095KacspsbLFFLTMG [employer] [place] - EXCHANGE [id number] 2019- [phone] [address] [id number] 1.2.840.149970.1.13.239.2.7.3.111310.20699-36-8923Prwjrtxrrwcutrsyrti 1.2.840.469283.1.13.239.2.7.3.114094.315 [id number] 1.2.840.045872.1.13.239.2.7.3.288215.29937-56-5811Xtbckgo Health Insurance [id number] 1.2.840.225441.1.13.239.2.7.3.670[id number] 2.16.840.1.244786.3.57[id number] 2.16.840.1.428211.3.579.2.30[id number] 2.16.840.1.685303.3.57[id number] 2.16.840.1.167454.3.57[id number] 2.16.840.1.835247.3.579.[id number] 2.16.840.1.175492.3.579.2.67889-46-3867Mfkbvvb387434244 2.16.840.1.146684.3.579.2.1[id number] 2.16.840.1.879663.3.57[id number] 2.16.840.1.347486.3.57[id number] 2.16.840.1.061995.3.579.2.83635-84-8957Ljixwhz406026245 2.16.840.1.361939.3.579.2.99736-93-0077Qnygidb28663557 2.16840.1.274779.3.579.[id number] 2.16.840.1.813888.3.579.2.33430-02-3015Kbpcejs00365983 2.16.840.1.907532.3.579.2.32054-76-5219Ujdggvz76186024 2.16.840.1.310334.3.579.2.35715-43-7781Omsjcnw82660819 2.16.840.1.469400.3.579.2.93547-84-8774Thczujy01536597 2.16.840.1.573095.3.579.2.44644-10-5384Hpvsooi72741245 2.16.840.1.091977.3.579.2.53875-22-6694Yomibzp81755649 2.16.840.1.927798.3.579.2.55098-43-4579Skjfmuw32094476 2.16.840.1.187678.3.579.2.24001-30-8470Qgyhxwn16622621 2.16.840.1.106754.3.579.2.72049-47-7101Wpgfjts92055934 2.16.840.1.406756.3.579.2.19431-57-3194Zhmvogd10089806 2.16.840.1.453569.3.579.2.77701-88-2142Upfkgvd17502902 2.16.840.1.268222.3.579.2.88333-78-3104Ccbdenq16007343 2.16.840.1.020670.3.579.2.85432-03-2207Sellfhj02873295 2.16.840.1.446316.3.579.2.99912-47-9458Ggmeger38919879 2.16.840.1.399997.3.579.2.95263-04-6751Xvlnnbr74280218 2.16.840.1.701642.3.579.2.98749-86-6486Gqfevat97082273 2.16.840.1.217137.3.579.2.98141-20-2962Ueucjdl40270177 2.16.840.1.116919.3.579.2.58669-92-6110Gkvdvln84175467 2.16.840.1.743646.3.579.2.86240-75-1040Dlblfuu53671606 2.16.840.1.823308.3.579.2.26030-70-8958Qkltuxn53927992 2.16.840.1.163721.3.579.2.78388-89-4133Hsgybpc55591545 2.16.840.1.363853.3.579.2.87530-55-2457Ovfoklc85323220 2.16.840.1.265668.3.579.2.34173-28-1017Cnwyndi45679036 2.16.840.1.863127.3.579.2.21580-41-5066Xfhxhts94258781 2.16.840.1.865773.3.579.2.23021-85-5703Ujftaoo73558258 2.16.840.1.450896.3.579.2.73282-07-6131Drrxcpo74908288 2.16.840.1.648504.3.579.2.06824-42-8090Fbwtjbd83622650 2.16.840.1.940902.3.579.2.65884-10-3185Tywykyf12937765 2.16.840.1.971457.3.579.2.00566-30-4224Qwmezlx73632187 2.16.840.1.453938.3.579.2.99084-56-5865Uuslnpn96407842 2.16.840.1.085608.3.579.2.045Yweawpz33631008 2.16.840.1.284945.3.579.2.531 Social History DateTypeDetailFacilityStart: 80-45-9673Bqjoyrp smoking status NHISUnknown if ever smokedMemorial Health System [facility]: 18-67-9142Hqi Assigned At BirthNot on file [facility]: 12-26-2018 End: 91-20-2984Cumzevx smoking status NHISNever smokerMercy HealthComment on above:Denies use.Start: 12-26-2018 End: 34-95-4504Xiqkooe intakeNot CurrentlyCincinnati VA Medical Centertart: 03-07-2019 End: 13-06-2469Yampeut intakeEx-drinker (finding)[employer] [place], [place]Exposure to SARS-CoV-2 (event)Unable to assessCincinnati Children'S Hospital Medical CenterAcheive [place], [place]Start: 07-25-2019 End: 47-57-1231Ivkujmn use and exposureNever usedCincinnati Children'S Hospital Medical CenterLumaCyte [place], [place]Start: 11-01-2021 End: 14-57-3612Juqouxra to SARS-CoV-2 (event)Not sureWood County Hospital Katalyst Surgical [place], [place]Start: 11-11-2021 End: 84-03-0418Dfxfkbz intakeCurrent non-drinker of alcohol (finding)[facility] smoking statusNeOur Lady of Mercy Hospital - Anderson WillardComment on above:Denies use.Start: 03-17-2023 End: 83-31-9509Lbtztcg of Social functionOhioHealth Grove City Methodist Hospital the electric, gas, oil, or water company threatened to shut off services in your home in past 12Mo NoTPACK(I/We) worried whether (my/our) food would run out before (I/we) got money to buy more.Never trueBON Nat[employer] TechnologyStart: 12-29-2017 End: 24-21-3974EdyEpaala (finding)[facility] HospitalAnthology SolutionsSexual Orientation [facility] Start: 78-00-7323Msk Assigned At [facility] Medical Equipment Procedure CodeEquipment CodeEquipment Original TextEquipment IdentifierDates 12/26/[id number]: 81-05-4168Dqqtshl on above:Description: [employer] Injectable portSlv Retin 70mm 2.1mm 1mm Marisa - [id number]: 06-06-1812Dcqcg Scler 125x3.5x.75mm Marisa - [id number]: 01-29-2014 Gas Io Ispan Cnstl 125gm C3f8 - [id number]: 59-58-8593Wprzq Silicone 512a0j6fv Retinal 9229 Sterile - [id number]: 01-31-2018 Sleeve 2.4mm 1.5mm Silicone 30mm Scleral Round Sterile - [id number] Start: 80-53-5721Xuh Ispan Constellation Intraocular Vision System C3f8 125gm - [id number]: 65-97-2167Empncwq on above:Description: 100% U3W4Ppm Ispan Constellation Intraocular Vision System Sf6 125gm - [id number] Start: 18-09-0540Lfhi Acrysof 6mm 10 D +6 Diopter Modify C Asymmetric Monoflex Acrylic 13mm - [id number]: 18-66-4050Oxki Acrysof Expand 6mm 5 D +4 Diopter Modify C Meniscus Monoflex Acrylic - [id number]: 23-78-6627Lbjjbjt on above:Description: -1.72Gas Ispan Constellation Intraocular Vision System C3f8 125 - [id number]_ptkHfxqj: 10-26-2023 Goals DatePatient GoalDesired Activity/StatePersonal health goal Functional Status QszmIypaqrnjjkZfdwnnErcccakh50-97-8702Svnodyxdyq StatusN/DoryIntegris [facility] [place] Jzokntn99-55-6668Wqcbmvljus StatusN/CLAUDIAAvita Health System Ocfykqm85-05-2945Bcutsnebra StatusN/CLAUDIAAvita Health System Joxnaid84-98-4042Kcbvudfaxe StatusN/CLAUDIAAvita Health System Yrgcjth22-88-1641Sqalrgnyzl StatusN/CLAUDIAFostoria City Hospital Xinwxgb05-81-6685Nfokznkmti StatusN/A LuanIntegris [facility] [place] Pzhxhqx17-81-3861Nziaaqrbde Status N/CLAUDIAAvita Health System Ibjikwn50-07-2655Zbefnezvit StatusN/CLAUDIAAvita Health System Peizgpq61-23-4505Tfesozmukh StatusN/[facility] Cumnpwf05-60-1960 Functional StatusN/[facility] Babatunde [id number] StatusN/[facility] [id number] you deaf, or do you have serious difficulty hearingNo 09/06/2014 2:09 PM ALBERTO Katz Ma [facility] Work Phone: [phone] you blind, or do you have serious difficulty seeing, even when wearing glassesNo 09/06/2014 2:09 PM Mayra Abad Ma [facility]05-22-2015Do you have serious difficulty walking or climbing stairsNo 09/06/2014 2:09 PM Mayra Abad Ma [facility] [id number] you have difficulty dressing or bathingNo 09/06/2014 2:09 PM Lv [id number] of a physical, mental, or emotional condition, do you have difficulty doing errands alone such as visiting a physician's office or shoppingNo 09/06/2014 2:09 PM Mayra Abad Ma [facility] Mental Status Oxjh[id number] of a physical, mental, or emotional condition, do you have serious difficulty concentrating, remembering, or making decisionsNo 09/06/2014 2:09 PM ALBERTO Katz Ma [facility] Clinical Notes 05-02-2020 to 01-14-2025 Note Date & [id number] Hospital Discharge instructions Patient Education 01/14/2025 14:43:46 Kidney Stones, Nmyf-ap-Ccrg Kidney Stones Kidney stones are rock-like masses that form inside of the kidneys. Kidneys are organs that make pee (urine). A kidney stone may move into other parts of the urinary tract, including: The tubes that connect the kidneys to the bladder (ureters). The bladder. The tube that carries urine out of the body (urethra). Kidney stones can cause very bad pain and can block the flow of pee. The stone usually leaves your body through your pee. A doctor may need to take out the stone. What are the causes? Kidney stones may be caused by: Too much calcium in the body. This may be caused by too much parathyroid hormone in the blood. Uric acid crystals in the bladder. The body makes uric acid when you eat certain foods. Narrowing of one or both of the ureters. A kidney blockage that you were born with. Past surgery on the kidney or the ureters. What increases the risk? You are more likely to develop this condition if: You have had a kidney stone in the past. Other people in your family have had kidney stones. You do not drink enough water. You eat a diet that is high in protein, salt (sodium), or sugar. You are very overweight (obese). What are the signs or symptoms? Symptoms of a kidney stone may include: Pain in the side of the belly, right below the ribs. Pain usually spreads to the groin. Needing to pee often or right away. Pain when peeing. Blood in your pee. Feeling like you may vomit (nauseous). Vomiting. Fever and chills. How is this treated? Treatment depends on the size, location, and makeup of the kidney stones. The stones will often pass out of the body when you pee. You may need to: Drink more fluid to help pass the stone. ?In some cases, you may be given fluids through an IV tube at the hospital. Take medicine for pain. Change your diet to help keep kidney stones from coming back. Sometimes, you may need: A procedure to break up kidney stones using a beam of light (laser) or shock waves. Surgery to remove the kidney stones. Follow these instructions at home: Medicines Take qnpj-ldq-kgysfuw and prescription medicines only as told by your doctor. Ask your doctor if the medicine prescribed to you requires you to avoid driving or using machinery. Eating and drinking Drink enough fluid to keep your pee pale yellow. ?You may be told to drink at least 8 10 glasses of water each day. This will help you pass the stone. If told by your doctor, change your diet. You may be told to: ?Limit how much salt you eat. ?Eat more fruits and vegetables. ?Limit how much meat, poultry, fish, and eggs you eat. Follow instructions from your doctor about what you may eat and drink. General instructions Collect pee samples as told by your doctor. You may need to collect a pee sample: ?24 hours after a stone comes out. ?8 12 weeks after a stone comes out, and every 6 12 months after that. Strain your pee every time you pee. Use the strainer that your doctor recommends. Do not throw out the stone. Keep it so that it can be tested by your doctor. Keep all follow-up visits. You may need X-rays and ultrasounds to make sure the stone has come out. How is this prevented? To prevent another kidney stone: Drink enough fluid to keep your pee pale yellow. This is the best way to prevent kidney stones. Eat healthy foods. Avoid certain foods as told by your doctor. You may be told to eat less protein. Stay at a healthy weight. Where to find more information National Kidney Foundation (NKF): kidney.org Urology Care Foundation (UCF): urologyhealth.org Contact a doctor if: You have pain that gets worse or does not get better with medicine. Get help right away if: You have a fever or chills. You get very bad pain. You get new pain in your belly. You faint. You cannot pee. This information is not intended to replace advice given to you by your health care provider. Make sure you discuss any questions you have with your health care provider. Document Revised: 11/26/2022 Document Reviewed: 11/26/2022 [employer] [place] Patient Education 2023 [employer]. Follow Up Care 12/07/2024 16:03:53 With:MARLENY RODRIGUEZ, MAITE, AGNES Address: When:6 months Comments:w/ KUB (recall placed) [facility] 09-29-2025 NotePatient Education Urology Kidney Stones Kidney stones are rock-like masses that form inside of the kidneys. Kidneys are organs that make pee (urine). A kidney stone may move into other parts of the urinary tract, including: ??? The tubes that connect the kidneys to the bladder (ureters). ??? The bladder. ??? The tube that carries urine out of the body (urethra). Kidney stones can cause very bad pain and can block the flow of pee. The stone usually leaves your body through your pee. A doctor may need to take out the stone. What are the causes? Kidney stones may be caused by: ??? Too much calcium in the body. This may be caused by too much parathyroid hormone in the blood. ??? Uric acid crystals in the bladder. The body makes uric acid when you eat certain foods. ??? Narrowing of one or both of the ureters. ??? A kidney blockage that you were born with. ??? Past surgery on the kidney or the ureters. What increases the risk? You are more likely to develop this condition if: ??? You have had a kidney stone in the past. ??? Other people in your family have had kidney stones. ??? You do not drink enough water. ??? You eat a diet that is high in protein, salt (sodium), or sugar. ??? You are very overweight (obese). What are the signs or symptoms? Symptoms of a kidney stone may include: ??? Pain in the side of the belly, right below the ribs. Pain usually spreads to the groin. ??? Needing to pee often or right away. ??? Pain when peeing. ??? Blood in your pee. ??? Feeling like you may vomit (nauseous). ??? Vomiting. ??? Fever and chills. How is this treated? Treatment depends on the size, location, and makeup of the kidney stones. The stones will often pass out of the body when you pee. You may need to: ??? Drink more fluid to help pass the stone. ? In some cases, you may be given fluids through an IV tube at the hospital. ??? Take medicine for pain. ??? Change your diet to help keep kidney stones from coming back. Sometimes, you may need: ??? A procedure to break up kidney stones using a beam of light (laser) or shock waves. ??? Surgery to remove the kidney stones. Follow these instructions at home: Medicines ??? Take lokx-pkx-vwwthlp and prescription medicines only as told by your doctor. ??? Ask your doctor if the medicine prescribed to you requires you to avoid driving or using machinery. Eating and drinking ??? Drink enough fluid to keep your pee pale yellow. ? You may be told to drink at least 8?10 glasses of water each day. This will help you pass the stone. ??? If told by your doctor, change your diet. You may be told to: ? Limit how much salt you eat. ? Eat more fruits and vegetables. ? Limit how much meat, poultry, fish, and eggs you eat. ??? Follow instructions from your doctor about what you may eat and drink. General instructions ??? Collect pee samples as told by your doctor. You may need to collect a pee sample: ? 24 hours after a stone comes out. ? 8?12 weeks after a stone comes out, and every 6?12 months after that. ??? Strain your pee every time you pee. Use the strainer that your doctor recommends. ??? Do not throw out the stone. Keep it so that it can be tested by your doctor. ??? Keep all follow-up visits. You may need X-rays and ultrasounds to make sure the stone has come out. How is this prevented? To prevent another kidney stone: ??? Drink enough fluid to keep your pee pale yellow. This is the best way to prevent kidney stones. ??? Eat healthy foods. ??? Avoid certain foods as told by your doctor. You may be told to eat less protein. ??? Stay at a healthy weight. Where to find more information ??? National Kidney Foundation (NKF): kidney.org ??? Urology Care Foundation (UCF): urologyhealth.org Contact a doctor if: ??? You have pain that gets worse or does not get better with medicine. Get help right away if: ??? You have a fever or chills. ??? You get very bad pain. ??? You get new pain in your belly. ??? You faint. ??? You cannot pee. This information is not intended to replace advice given to you by your health care provider. Make sure you discuss any questions you have with your health care provider. Document Revised: 11/26/2022 Document Reviewed: 11/26/2022 Elsevier Patient Education ? 2023 [employer] [place] [employer] 01-14-2025 Hospital Discharge instructions Patient Education 01/14/2025 10:24:27 Osteopenia Osteopenia Osteopenia is a loss of thickness (density) inside the bones. Another name for osteopenia is low bone mass. Mild osteopenia is a normal part of aging. It is not a disease, and it does not cause symptoms. However, if you have osteopenia and continue to lose bone mass, you could develop a condition that causes the bones to become thin and break more easily (osteoporosis). Osteoporosis can cause you to lose some height, have back pain, and have a stooped posture. Although osteopenia is not a disease, making changes to your lifestyle and diet can help to prevent osteopenia from developing into osteoporosis. What are the causes? Osteopenia is caused by loss of calcium in the bones. Bones are constantly changing. Old bone cellsare continually being replaced with new bone cells. This process builds new bone. The mineral calcium is needed to build new bone and maintain bone density. Bone density is usually highest around age 35. After that, most people's bodies cannot replace all the bone they have lost with new bone. What increases the risk? You are more likely to develop this condition if: You are older than age 50. You are a woman who went through menopause early. You have a long illness that keeps you in bed. You do not get enough exercise. You lack certain nutrients (malnutrition). You have an overactive thyroid gland (hyperthyroidism). You use products that contain nicotine or tobacco, such as cigarettes, e- cigarettes and chewing tobacco, or you drink a lot of alcohol. You are taking medicines that weaken the bones, such as steroids. What are the signs or symptoms? This condition does not cause any symptoms. You may have a slightly higher risk for bone breaks (fractures), so getting fractures more easily than normal may be an indication of osteopenia. How is this diagnosed? This condition may be diagnosed based on an X-ray exam that measures bone density (dual-energy X-ray absorptiometry, or DEXA). This test can measure bone density in your hips, spine, and wrists. Osteopenia has no symptoms, so this condition is usually diagnosed after a routine bone density screening test is done for osteoporosis. This routine screening is usually done for: Women who are age 65 or older. Men who are age 70 or older. If you have risk factors for osteopenia, you may have the screening test at an earlier age. How is this treated? Making dietary and lifestyle changes can lower your risk for osteoporosis. If you have severe osteopenia that is close to becoming osteoporosis, this condition can be treatedwith medicines and dietary supplements such as calcium and vitamin D. These supplements help to rebuild bone density. Follow these instructions at home: Eating and drinking Eat a diet that is high in calcium and vitamin D. Calcium is found in dairy products, beans, salmon, and leafy green vegetables like spinach and broccoli. Look for foods that have vitamin D and calcium added to them (fortified foods), such as orange juice, cereal, and bread. Lifestyle Do 30 minutes or more of a weight-bearing exercise every day, such as walking, jogging, or playing a sport. These types of exercises strengthen the bones. Do not use any products that contain nicotine or tobacco, such as cigarettes, e- cigarettes, and chewing tobacco. If you need help quitting, ask your health care provider. Do not drink alcohol if: ?Your health care provider tells you not to drink. ?You are , may be , or are planning to become . If you drink alcohol: ?Limit how much you use to: ?0 1 drink a day for women. ?0 2 drinks a day for men. ?Be aware of how much alcohol is in your drink. In the [place] one drink equals one 12 oz bottle of beer (355 mL), one 5 oz glass of wine (148 mL), or one 1 oz glass of hard liquor (44 mL). General instructions Take sjnp-lew-tscnyxj and prescription medicines only as told by your health care provider. These include vitamins and supplements. Take precautions at home to lower your risk of falling, such as: ?Keeping rooms well-lit and free of clutter, such as cords. ?Installing safety rails on stairs. ?Using rubber mats in the bathroom or other areas that are often wet or slippery. Keep all follow-up visits. This is important. Contact a health care provider if: You have not had a bone density screening for osteoporosis and you are: ?A woman who is age 65 or older. ?A man who is age 70 or older. You are a postmenopausal woman who has not had a bone density screening for osteoporosis. You are older than age 50 and you want to know if you should have bone density screening for osteoporosis. Summary Osteopenia is a loss of thickness (density) inside the bones. Another name for osteopenia is low bone mass. Osteopenia is not a disease, but it may increase your risk for a condition that causes the bones tobecome thin and break more easily (osteoporosis). You may be at risk for osteopenia if you are older than age 50 or if you are a woman who went through early menopause. Osteopenia does not cause any symptoms, but it can be diagnosed with a bone density screening test. Dietary and lifestyle changes are the first treatment for osteopenia. These may lower your risk forosteoporosis. This information is not intended to replace advice given to you by your health care provider. Make sure you discuss any questions you have with your health care provider. Document Revised: 09/18/2020 Document Reviewed: 09/18/2020 [employer] [place] Patient Education 2023 [employer]. 01/14/2025 10:24:25 BMI for Adults BMI for Adults Body mass index (BMI) is a number found using a person's weight and height. BMI can help tell how much of a person's weight is made up of fat. BMI does not measure body fat directly. It is used instead of tests that directly measure body fat, which can be difficult and expensive. What are BMI measurements used for? BMI is useful to: Find out if your weight puts you at higher risk for medical problems. Help recommend changes, such as in diet and exercise. This can help you reach a healthy weight. BMIscreening can be done again to see if these changes are working. How is BMI calculated? Your height and weight are measured. The BMI is found from those numbers. This can be done with [place] or metric measurements. Note that charts and online BMI calculators are available to help you findyour BMI quickly and easily without doing these calculations. To calculate your BMI in [place] measurements: 1.Measure your weight in pounds (lb). 2.Multiply the number of pounds by 703. So, for an adult who weighs 150 lb, multiply that number by 703: 150 x 703, which equals 105,450. 3.Measure your height in inches. Then multiply that number by itself to get a measurement called inches squared. So, for an adult who is 70 inches tall, the inches squared measurement is 70 inches x 70 inches, which equals 4,900 inches squared. 4.Divide the total from step 2 (number of lb x 703) by the total from step 3 (inches squared): 105,450 4,900 = 21.5. This is your BMI. To calculate your BMI in metric measurements: 1.Measure your weight in kilograms (kg). For this example, the weight is 70 kg. 2.Measure your height in meters (m). Then multiply that number by itself to get a measurement called meters squared. So, for an adult who is 1.75 m tall, the meters squared measurement is 1.75 m x 1.75 m, which equals 3.1 meters squared. 3.Divide the number of kilograms (your weight) by the meters squared number. In this example: 70 3.1 = 22.6. This is your BMI. What do the results mean? BMI charts are used to see if you are underweight, normal weight, overweight, or obese. The following guidelines will be used: Underweight: BMI less than 18.5. Normal weight: BMI between 18.5 and 24.9. Overweight: BMI between 25 and 29.9. Obese: BMI of 30 or above. BMI is a tool and cannot diagnose a condition. Talk with your health care provider about what your BMI means for you. Keep these notes in mind: Weight includes fat and muscle. Someone with a muscular build, such as an athlete, may have a BMI that is higher than 24.9. In cases like these, BMI is not a correct measure of body fat. If you have a BMI of 25 or higher, your provider may need to do more testing to find out if excess body fat is the cause. BMI is measured the same way for males and females. Females usually have more body fat than males of the same height and weight. Where to find more information For more information about BMI, including tools to quickly find your BMI, go to: Centers for Disease Control and Prevention: cdc.gov [employer] Heart Association: heart.org National Heart, Lung, and Blood [place]: nhlbi.nih.gov This information is not intended to replace advice given to you by your health care provider. Make sure you discuss any questions you have with your health care provider. Document Revised: 12/23/2022 Document Reviewed: 12/16/2022 [employer] [place] Patient Education 2023 [employer] [place] [employer] 01/14/2025 10:24:22 DASH Eating Plan DASH Eating Plan DASH stands for Dietary Approaches to Stop Hypertension. The DASH eating plan is a healthy eating plan that has been shown to: Lower high blood pressure (hypertension). Reduce your risk for type 2 diabetes, heart disease, and stroke. Help with weight loss. What are tips for following this plan? Reading food labels Check food labels for the amount of salt (sodium) per serving. Choose foods with less than 5 percent of the Daily Value (DV) of sodium. In general, foods with less than 300 milligrams (mg) of sodium per serving fit into this eating plan. To find whole grains, look for the word whole as the first word in the ingredient list. Shopping Buy products labeled as low-sodium or no salt added. Buy fresh foods. Avoid canned foods and pre-made or frozen meals. Cooking Try not to add salt when you cook. Use salt-free seasonings or herbs instead of table salt or sea salt. Check with your health care provider or pharmacist before using salt substitutes. Do not muniz foods. Cook foods in healthy ways, such as baking, boiling, grilling, roasting, or broiling. Cook using oils that are good for your heart. These include olive, canola, avocado, soybean, and sunflower oil. Meal planning Eat a balanced diet. This should include: ?4 or more servings of fruits and 4 or more servings of vegetables each day. Try to fill half of your plate with fruits and vegetables. ?6 8 servings of whole grains each day. ?6 or less servings of lean meat, poultry, or fish each day. 1 oz is 1 serving. A 3 oz (85 g) serving of meat is about the same size as the palm of your hand. One egg is 1 oz (28 g). ?2 3 servings of low-fat dairy each day. One serving is 1 cup (237 mL). ?1 serving of nuts, seeds, or beans 5 times each week. ?2 3 servings of heart-healthy fats. Healthy fats called omega-3 fatty acids are found in foods such as walnuts, flaxseeds, fortified milks, and eggs. These fats are also found in cold-water fish, such as sardines, salmon, and mackerel. Limit how much you eat of: ?Canned or prepackaged foods. ?Food that is high in trans fat, such as fried foods. ?Food that is high in saturated fat, such as fatty meat. ?Desserts and other sweets, sugary drinks, and other foods with added sugar. ?Full-fat dairy products. Do not salt foods before eating. Do not eat more than 4 egg yolks a week. Try to eat at least 2 vegetarian meals a week. Eat more home-cooked food and less restaurant, buffet, and fast food. Lifestyle When eating at a restaurant, ask if your food can be made with less salt or no salt. If you drink alcohol: ?Limit how much you have to: ?0 1 drink a day if you are female. ?0 2 drinks a day if you are male. ?Know how much alcohol is in your drink. In the [place] one drink is one 12 oz bottle of beer (355 mL), one 5 oz glass of wine (148 mL), or one 1 oz glass of hard liquor (44 mL). General information Avoid eating more than 2,300 mg of salt a day. If you have hypertension, you may need to reduce your sodium intake to 1,500 mg a day. Work with your provider to stay at a healthy body weight or lose weight. Ask what the best weight range is for you. On most days of the week, get at least 30 minutes of exercise that causes your heart to beat faster. This may include walking, swimming, or biking. Work with your provider or dietitian to adjust your eating plan to meet your specific calorie needs. What foods should I eat? Fruits All fresh, dried, or frozen fruit. Canned fruits that are in their natural juice and do not have sugar added to them. Vegetables Fresh or frozen vegetables that are raw, steamed, roasted, or grilled. Low- sodium or reduced-sodiumtomato and vegetable juice. Low-sodium or reduced-sodium tomato sauce and tomato paste. Low-sodium or reduced-sodium canned vegetables. Grains Whole-grain or whole-wheat bread. Whole-grain or whole-wheat pasta. Brown rice. Oatmeal. Quinoa. Bulgur. Whole-grain and low-sodium cereals. Cristina bread. Low- fat, low-sodium crackers. Whole-wheat flour tortillas. Meats and other proteins Skinless chicken or turkey. Ground chicken or turkey. Pork with fat trimmed off. Fish and seafood. Egg whites. Dried beans, peas, or lentils. Unsalted nuts, nut butters, and seeds. Unsalted canned beans. Lean cuts of beef with fat trimmed off. Low-sodium, lean precooked or cured meat, such as sausages or meat loaves. Dairy Low-fat (1%) or fat-free (skim) milk. Reduced-fat, low-fat, or fat-free cheeses. Nonfat, low-sodiumricotta or cottage cheese. Low-fat or nonfat yogurt. Low-fat, low-sodium cheese. Fats and oils Soft margarine without trans fats. Vegetable oil. Reduced-fat, low-fat, or light mayonnaise and salad dressings (reduced-sodium). Canola, safflower, olive, avocado, soybean, and sunflower oils. Avocado. Seasonings and condiments Herbs. Spices. Seasoning mixes without salt. Other foods Unsalted popcorn and pretzels. Fat-free sweets. The items listed above may not be all the foods and drinks you can have. Talk to a dietitian to learn more. What foods should I avoid? Fruits Canned fruit in a light or heavy syrup. Fried fruit. Fruit in cream or butter sauce. Vegetables Creamed or fried vegetables. Vegetables in a cheese sauce. Regular canned vegetables that are not marked as low-sodium or reduced-sodium. Regular canned tomato sauce and paste that are not marked as low-sodium or reduced-sodium. Regular tomato and vegetable juices that are not marked as low-sodium or reduced-sodium. Pickles. Olives. Grains Baked goods made with fat, such as croissants, muffins, or some breads. Dry pasta or rice meal packs. Meats and other proteins Fatty cuts of meat. Ribs. Fried meat. Cardoso. Bologna, salami, and other precooked or cured meats, such as sausages or meat loaves, that are not lean and low in sodium. Fat from the back of a pig (fatback). Bratwurst. Salted nuts and seeds. Canned beans with added salt. Canned or smoked fish. Whole eggs or egg yolks. Chicken or turkey with skin. Dairy Whole or 2% milk, cream, and qjbj-ves-avbz. Whole or full-fat cream cheese. Whole-fat or sweetened yogurt. Full-fat cheese. Nondairy creamers. Whipped toppings. Processed cheese and cheese spreads. Fats and oils Butter. Stick margarine. Lard. Shortening. Ghee. Cardoso fat. Tropical oils, such as coconut, palm kernel, or palm oil. Seasonings and condiments Onion salt, garlic salt, seasoned salt, table salt, and sea salt. Worcestershire sauce. Tartar sauce. Barbecue sauce. Teriyaki sauce. Soy sauce, including reduced-sodium soy sauce. Steak sauce. Canned and packaged gravies. Fish sauce. Oyster sauce. Cocktail sauce. Store-bought horseradish. Ketchup.Mustard. Meat flavorings and tenderizers. Bouillon cubes. Hot sauces. Pre-made or packaged marinades. Pre-made or packaged taco seasonings. Relishes. Regular salad dressings. Other foods Salted popcorn and pretzels. The items listed above may not be all the foods and drinks you should avoid. Talk to a dietitian miriam more. Where to find more information National Heart, Lung, and Blood [place] (NHLBI): nhlbi.nih.gov [place] Heart Association (AHA): heart.org Academy of Nutrition and Dietetics: eatright.org National Kidney Foundation (NKF): kidney.org This information is not intended to replace advice given to you by your health care provider. Make sure you discuss any questions you have with your health care provider. Document Revised: 04/21/2023 Document Reviewed: 04/21/2023 [employer] [place] Patient Education 2023 [employer]. 01/14/2025 10:24:21 Dyslipidemia Dyslipidemia Dyslipidemia is an imbalance of waxy, fat-like substances (lipids) in the blood. The body needs lipids in small amounts. Dyslipidemia often involves a high level of cholesterol or triglycerides, which are types of lipids. Common forms of dyslipidemia include: High levels of LDL cholesterol. LDL is the type of cholesterol that causes fatty deposits (plaques)to build up in the blood vessels that carry blood away from the heart (arteries). Low levels of HDL cholesterol. HDL cholesterol is the type of cholesterol that protects against heart disease. High levels of HDL remove the LDL buildup from arteries. High levels of triglycerides. Triglycerides are a fatty substance in the blood that is linked to a buildup of plaques in the arteries. What are the causes? There are two main types of dyslipidemia: primary and secondary. Primary dyslipidemia is caused by changes (mutations) in genes that are passed down through families (inherited). These mutations cause several types of dyslipidemia. Secondary dyslipidemia may be caused by various risk factors that can lead to the disease, such as lifestyle choices and certain medical conditions. What increases the risk? You are more likely to develop this condition if you are an older man or if you are a woman who hasgone through menopause. Other risk factors include: Having a family history of dyslipidemia. Taking certain medicines, including control pills, steroids, some diuretics, and beta-blockers. Eating a diet high in saturated fat. Smoking cigarettes or excessive alcohol intake. Having certain medical conditions such as diabetes, polycystic ovary syndrome (PCOS), kidney disease, liver disease, or hypothyroidism. Not exercising regularly. Being overweight or obese with too much belly fat. What are the signs or symptoms? In most cases, dyslipidemia does not usually cause any symptoms. In severe cases, very high lipid levels can cause: Fatty bumps under the skin (xanthomas). A white or berry ring around the black center (pupil) of the eye. Very high triglyceride levels can cause inflammation of the pancreas (pancreatitis). How is this diagnosed? Your health care provider may diagnose dyslipidemia based on a routine blood test (fasting blood test). Because most people do not have symptoms of the condition, this blood testing (lipid profile) is done on adults age 20 and older and is repeated every 4-6 years. This test checks: Total cholesterol. This measures the total amount of cholesterol in your blood, including LDL cholesterol, HDL cholesterol, and triglycerides. A healthy number is below 200 mg/dL (5.17 mmol/L). LDL cholesterol. The target number for LDL cholesterol is different for each person, depending on individual risk factors. A healthy number is usually below 100 mg/dL (2.59 mmol/L). Ask your health care provider what your LDL cholesterol should be. HDL cholesterol. An HDL level of 60 mg/dL (1.55 mmol/L) or higher is best because it helps to protect against heart disease. A number below 40 mg/dL (1.03 mmol/L) for men or below 50 mg/dL (1.29 mmol/L) for women increases the risk for heart disease. Triglycerides. A healthy triglyceride number is below 150 mg/dL (1.69 mmol/L). If your lipid profile is abnormal, your health care provider may do other blood tests. How is this treated? Treatment depends on the type of dyslipidemia that you have and your other risk factors for heart disease and stroke. Your health care provider will have a target range for your lipid levels based onthis information. Treatment for dyslipidemia starts with lifestyle changes, such as diet and exercise. Your health care provider may recommend that you: Get regular exercise. Make changes to your diet. Quit smoking if you smoke. Limit your alcohol intake. If diet changes and exercise do not help you reach your goals, your health care provider may also prescribe medicine to lower lipids. The most commonly prescribed type of medicine lowers your LDL cholesterol (statin drug). If you have a high triglyceride level, your provider may prescribe another type of drug (fibrate) or an omega-3 fish oil supplement, or both. Follow these instructions at home: Eating and drinking Follow instructions from your health care provider or dietitian about eating or drinking restrictions. Eat a healthy diet as told by your health care provider. This can help you reach and maintain a healthy weight, lower your LDL cholesterol, and raise your HDL cholesterol. This may include: ?Limiting your calories, if you are overweight. ?Eating more fruits, vegetables, whole grains, fish, and lean meats. ?Limiting saturated fat, trans fat, and cholesterol. Do not drink alcohol if: ?Your health care provider tells you not to drink. ?You are , may be , or are planning to become . If you drink alcohol: ?Limit how much you have to: ?0 1 drink a day for women. ? 0 2 drinks a day for men. ?Know how much alcohol is in your drink. In the [place] one drink equals one 12 oz bottle of beer (355 mL), one 5 oz glass of wine (148 mL), or one 1 oz glass of hard liquor (44 mL). Activity Get regular exercise. Start an exercise and strength training program as told by your health care provider. Ask your health care provider what activities are safe for you. Your health care provider may recommend: ?30 minutes of aerobic activity 4 6 days a week. Brisk walking is an example of aerobic activity. ?Strength training 2 days a week. General instructions Do not use any products that contain nicotine or tobacco. These products include cigarettes, chewing tobacco, and vaping devices, such as e-cigarettes. If you need help quitting, ask your health careprovider. Take mbgs-slw-rwunegc and prescription medicines only as told by your health care provider. This includes supplements. Keep all follow-up visits. This is important. Contact a health care provider if: You are having trouble sticking to your exercise or diet plan. You are struggling to quit smoking or to control your use of alcohol. Summary Dyslipidemia often involves a high level of cholesterol or triglycerides, which are types of lipids. Treatment depends on the type of dyslipidemia that you have and your other risk factors for heart disease and stroke. Treatment for dyslipidemia starts with lifestyle changes, such as diet and exercise. Your health care provider may prescribe medicine to lower lipids. This information is not intended to replace advice given to you by your health care provider. Make sure you discuss any questions you have with your health care provider. Document Revised: 11/05/2022 Document Reviewed: 06/08/2021 [employer] [place] Patient Education 2023 [employer]. 01/14/2025 10:24:20 Generalized Anxiety Disorder, Adult Generalized Anxiety Disorder, Adult Generalized anxiety disorder (ADINA) is a mental health condition. Unlike normal worries, anxiety related to ADINA is not triggered by a specific event. These worries do not fade or get better with time.ADINA interferes with relationships, work, and school. ADINA symptoms can vary from mild to severe. People with severe ADINA can have intense waves of anxietywith physical symptoms that are similar to panic attacks. What are the causes? The exact cause of ADINA is not known, but the following are believed to have an impact: Differences in natural brain chemicals. Genes passed down from parents to children. Differences in the way threats are perceived. Development and stress during childhood. Personality. What increases the risk? The following factors may make you more likely to develop this condition: Being female. Having a family history of anxiety disorders. Being very shy. Experiencing very stressful life events, such as the of a loved one. Having a very stressful family environment. What are the signs or symptoms? People with ADINA often worry excessively about many things in their lives, such as their health and family. Symptoms may also include: Mental and emotional symptoms: ?Worrying excessively about natural disasters. ?Fear of being late. ?Difficulty concentrating. ?Fears that others are judging your performance. Physical symptoms: ?Fatigue. ?Headaches, muscle tension, muscle twitches, trembling, or feeling shaky. ?Feeling like your heart is pounding or beating very fast. ?Feeling out of breath or like you cannot take a deep breath. ?Having trouble falling asleep or staying asleep, or experiencing restlessness. ?Sweating. ?Nausea, diarrhea, or irritable bowel syndrome (IBS). Behavioral symptoms: ?Experiencing erratic moods or irritability. ?Avoidance of new situations. ?Avoidance of people. ?Extreme difficulty making decisions. How is this diagnosed? This condition is diagnosed based on your symptoms and medical history. You will also have a physical exam. Your health care provider may perform tests to rule out other possible causes of your symptoms. To be diagnosed with ADINA, a person must have anxiety that: Is out of his or her control. Affects several different aspects of his or her life, such as work and relationships. Causes distress that makes him or her unable to take part in normal activities. Includes at least three symptoms of ADINA, such as restlessness, fatigue, trouble concentrating, irritability, muscle tension, or sleep problems. Before your health care provider can confirm a diagnosis of ADINA, these symptoms must be present more days than they are not, and they must last for 6 months or longer. How is this treated? This condition may be treated with: Medicine. Antidepressant medicine is usually prescribed for long-term daily control. Anti-anxiety medicines may be added in severe cases, especially when panic attacks occur. Talk therapy (psychotherapy). Certain types of talk therapy can be helpful in treating ADINA by providing support, education, and guidance. Options include: ?Cognitive behavioral therapy (CBT). People learn coping skills and self-calming techniques to easetheir physical symptoms. They learn to identify unrealistic thoughts and behaviors and to replace them with more appropriate thoughts and behaviors. ?Acceptance and commitment therapy (ACT). This treatment teaches people how to be mindful as a way to cope with unwanted thoughts and feelings. ?Biofeedback. This process trains you to manage your body's response (physiological response) through breathing techniques and relaxation methods. You will work with a therapist while machines are used to monitor your physical symptoms. Stress management techniques. These include yoga, meditation, and exercise. A mental health specialist can help determine which treatment is best for you. Some people see improvement with one type of therapy. However, other people require a combination of therapies. Follow these instructions at home: Lifestyle Maintain a consistent routine and schedule. Anticipate stressful situations. Create a plan and allow extra time to work with your plan. Practice stress management or self-calming techniques that you have learned from your therapist or your health care provider. Exercise regularly and spend time outdoors. Eat a healthy diet that includes plenty of vegetables, fruits, whole grains, low-fat dairy products, and lean protein. ?Do not eat a lot of foods that are high in fat, added sugar, or salt (sodium). ?Drink plenty of water. Avoid alcohol. Alcohol can increase anxiety. Avoid caffeine and certain swjk-ici-cylsazu cold medicines. These may make you feel worse. Ask yourpharmacist which medicines to avoid. General instructions Take eqfn-aay-yevsone and prescription medicines only as told by your health care provider. Understand that you are likely to have setbacks. Accept this and be kind to yourself as you persistto take better care of yourself. Anticipate stressful situations. Create a plan and allow extra time to work with your plan. Recognize and accept your accomplishments, even if you clinician oncology them as small. Spend time with people who care about you. Keep all follow-up visits. This is important. Where to find more information National [place] of Mental Health: www.nimh.nih.gov Substance Abuse and Mental Health Services: www.samhsa.gov Contact a health care provider if: Your symptoms do not get better. Your symptoms get worse. You have signs of depression, such as: ?A persistently sad or irritable mood. ?Loss of enjoyment in activities that used to bring you damaris. ?Change in weight or eating. ?Changes in sleeping habits. Get help right away if: You have thoughts about hurting yourself or others. If you ever feel like you may hurt yourself or others, or have thoughts about taking your own life,get help right away. Go to your nearest emergency department or: Call your local emergency services (911 in the [place] Call a suicide crisis helpline, such as the National Suicide Prevention Lifeline at or 668 in the [place] This is open 24 hours a day in the [place] Text the Crisis Text Line at 226986 (in the [place] Summary Generalized anxiety disorder (ADINA) is a mental health condition that involves worry that is not triggered by a specific event. People with ADINA often worry excessively about many things in their lives, such as their health and family. ADINA may cause symptoms such as restlessness, trouble concentrating, sleep problems, frequent sweating, nausea, diarrhea, headaches, and trembling or muscle twitching. A mental health specialist can help determine which treatment is best for you. Some people see improvement with one type of therapy. However, other people require a combination of therapies. This information is not intended to replace advice given to you by your health care provider. Make sure you discuss any questions you have with your health care provider. Document Revised: 10/28/2021 Document Reviewed: 07/26/2021 [employer] [place] Patient Education 2023 [employer]. 01/14/2025 10:24:17 Major Depressive Disorder, Adult, Zohb-af-Awfa Major Depressive Disorder, Adult Major depressive disorder (MDD) is a mental health condition. People with this disorder feel very sad, hopeless, and lose interest in things. Symptoms last most of the day, almost every day, for 2 weeks. MDD can affect: Relationships. Work and school. Things you usually like to do. What are the causes? The cause of MDD is not known. What increases the risk? Having family members with depression. Being female. Family problems. Alcohol or drug misuse. A lot of stress in your life, such as from: ?Living without basic needs such as food and housing. ?Being treated poorly because of race, sex, or restorationism (discrimination). ?Things that caused you pain as a child, especially if you lost a parent or were abused. ?Health and mental problems that you have had for a long time. What are the signs or symptoms? The main symptoms of this condition are: Being sad all the time. Being grouchy (irritable) all the time. Not enjoying the things you usually like. Sleeping too much or too little. Eating too much or too little. Feeling tired. Other symptoms include: Gaining or losing weight, without knowing why. Being restless and weak. Feeling hopeless, worthless, or guilty. Trouble thinking or making decisions. Thoughts of hurting yourself or others, or thoughts of ending your life. Spending a lot of time alone. Being unable to do daily tasks. If you have very bad MDD, you may: Believe things that are not true. Hear, see, taste, or feel things that are not there. Have mild depression that lasts for at least 2 years. Feel very sad and hopeless. Have trouble speaking or moving. Feel very sad during some seasons. How is this treated? Talk therapy. This teaches you about thoughts, feelings, and actions and how to change them. ?This can also help you to talk with others. ?This can be done with members of your family. Medicines. Lifestyle changes. You may need to: ?Limit alcohol use. ?Stop using drugs, if you use them. ?Exercise. ?Get plenty of sleep. ?Eat healthy. ?Spend more time outdoors. Brain stimulation. This may be done when symptoms are very bad or have not gotten better. Follow these instructions at home: Alcohol use Do not drink alcohol if: ?Your health care provider tells you not to drink. ?You are , may be , or are planning to become . If you drink alcohol: ?Limit how much you use to: ?0 1 drink a day for women. ?0 2 drinks a day for men. ?Know how much alcohol is in your drink. In the [place] one drink equals one 12 oz bottle of beer (355 mL), one 5 oz glass of wine (148 mL), or one 1 oz glass of hard liquor (44 mL). Activity Exercise as told by your doctor. Spend time outdoors. Make time to do the things you enjoy. Find ways to deal with stress. Try to: ?Meditate. ?Do deep breathing. ?Spend time in nature. ?Keep a journal. Return to your normal activities when your doctor says that it is safe. General instructions Take xuxx-yca-etxcvba and prescription medicines only as told by your doctor. Talk to your doctor about: ?Alcohol use. It can affect medicines. ?Any drug use. Eat healthy foods. Get a lot of sleep. Think about joining a support group. Ask your doctor about that. Keep all follow-up visits. Your doctor will need to check on your mood, behavior, and medicines, and change your treatment as needed. Where to find more information: National [place] on Mental Illness: alejandro.org National [place] of Mental Health: nimh.nih.gov [place] Psychiatric Association: psychiatry.org Contact a doctor if: You feel worse. You get new symptoms. Get help right away if: You hurt yourself on purpose (self-harm). You have thoughts about hurting yourself or others. You see, hear, taste, smell, or feel things that are not there. Get help right away if you feel like you may hurt yourself or others, or have thoughts about takingyour own life. Go to your nearest emergency room or: Call 911. Call the National Suicide Prevention Lifeline at or 188. This is open 24 hours a day. Text the Crisis Text Line at 434197. This information is not intended to replace advice given to you by your health care provider. Make sure you discuss any questions you have with your health care provider. Document Revised: 08/10/2022 Document Reviewed: 08/10/2022 [employer] [place] Patient Education 2023 [employer]. 01/14/2025 10:24:12 Atrial Fibrillation Atrial Fibrillation Atrial fibrillation (AFib) is a type of irregular or rapid heartbeat (arrhythmia). In AFib, the toppart of the heart (atria) beats in an irregular pattern. This makes the heart unable to pump blood normally and effectively. The goal of treatment is to prevent blood clots from forming, control your heart rate, or restore your heartbeat to a normal rhythm. If this condition is not treated, it can cause serious problems, such as a weakened heart muscle (cardiomyopathy) or a stroke. What are the causes? This condition is often caused by medical conditions that damage the heart's electrical system. These include: High blood pressure (hypertension). This is the most common cause. Certain heart problems or conditions, such as heart failure, coronary artery disease, heart valve problems, or heart surgery. Diabetes. Overactive thyroid (hyperthyroidism). Chronic kidney disease. Certain lung conditions, such as emphysema, pneumonia, or COPD. Obstructive sleep apnea. In some cases, the cause of this condition is not known. What increases the risk? This condition is more likely to develop in: Older adults. Athletes who do endurance exercise. People who have a family history of AFib. Males. People who are . People who are obese. People who smoke or misuse alcohol. What are the signs or symptoms? Symptoms of this condition include: Fast or irregular heartbeats (palpitations). Discomfort or pain in your chest. Shortness of breath. Sudden light-headedness or weakness. Tiring easily during exercise or activity. Syncope (fainting). Sweating. In some cases, there are no symptoms. How is this diagnosed? Your health care provider may detect AFib when taking your pulse. If detected, this condition may be diagnosed with: An electrocardiogram (ECG) to check electrical signals of the heart. An ambulatory teletypesetter monitor to record your heart's activity for a few days. A transthoracic echocardiogram (TTE) to create pictures of your heart. A transesophageal echocardiogram (MARYCRUZ) to create even clearer pictures of your heart. A stress test to check your blood supply while you exercise. Imaging tests, such as a CT scan or chest X-ray. Blood tests. How is this treated? Treatment depends on underlying conditions and how you feel when you get AFib. This condition may be treated with: Medicines to prevent blood clots or to treat heart rate or heart rhythm problems. Electrical cardioversion to reset the heart's rhythm. A pacemaker to correct abnormal heart rhythm. Ablation to remove the heart tissue that sends abnormal signals. Left atrial appendage closure to seal the area where blood clots can form. In some cases, underlying conditions will be treated. Follow these instructions at home: Medicines Take over-the counter and prescription medicines only as told by your provider. Do not take any new medicines without talking to your provider. If you are taking blood thinners: ?Talk with your provider before taking aspirin or NSAIDs. These medicines can raise your risk of bleeding. ?Take your medicines as told. Take them at the same time each day. ?Do not do things that could hurt or bruise you. Be careful to avoid falls. ?Wear an alert bracelet or carry a card that says that you take blood thinners. Lifestyle Do not use any products that contain nicotine or tobacco. These products include cigarettes, chewing tobacco, and vaping devices, such as e-cigarettes. If you need help quitting, ask your provider. Eat heart-healthy foods. Talk with a food expert (dietitian) to make an eating plan that is right for you. Exercise regularly as told by your provider. Do not drink alcohol. Lose weight if you are overweight. General instructions If you have obstructive sleep apnea, manage your condition as told by your provider. Do not use diet pills unless your provider approves. Diet pills can make heart problems worse. Keep all follow-up visits. Your provider will want to check your heart rate and rhythm regularly. Contact a health care provider if: You notice a change in the rate, rhythm, or strength of your heartbeat. You are taking a blood thinner and you notice more bruising. You tire more easily when you exercise or do heavy work. You have a sudden change in weight. Get help right away if: You have chest pain. You have trouble breathing. You have side effects of blood thinners, such as blood in your vomit, poop (stool), or pee (urine),or bleeding that does not stop. You have any symptoms of a stroke. BE FAST is an easy way to remember the main warning signs of astroke: ?B - Balance. Signs are dizziness, sudden trouble walking, or loss of balance. ?E - Eyes. Signs are trouble seeing or a sudden change in vision. ?F - Face. Signs are sudden weakness or numbness of the face, or the face or eyelid drooping on oneside. ?A - Arms. Signs are weakness or numbness in an arm. This happens suddenly and usually on one side of the body. ?S - Speech.Signs are sudden trouble speaking, slurred speech, or trouble understanding what peoplesay. ?T - Time. Time to call emergency services. Write down what time symptoms started. Other signs of a stroke, such as: ?A sudden, severe headache with no known cause. ?Nausea or vomiting. ?Seizure. These symptoms may be an emergency. Get help right away. Call 911. Do not wait to see if the symptoms will go away. Do not drive yourself to the hospital. This information is not intended to replace advice given to you by your health care provider. Make sure you discuss any questions you have with your health care provider. Document Revised: 12/22/2022 Document Reviewed: 12/22/2022 [employer] [place] Patient Education 2023 [employer]. [facility] 09-29-2025 NotePatient Education Cardiovascular Atrial Fibrillation Atrial fibrillation (AFib) is a type of irregular or rapid heartbeat (arrhythmia). In AFib, the toppart of the heart (atria) beats in an irregular pattern. This makes the heart unable to pump blood normally and effectively. The goal of treatment is to prevent blood clots from forming, control your heart rate, or restore your heartbeat to a normal rhythm. If this condition is not treated, it can cause serious problems, such as a weakened heart muscle (cardiomyopathy) or a stroke. What are the causes? This condition is often caused by medical conditions that damage the heart's electrical system. These include: ??? High blood pressure (hypertension). This is the most common cause. ??? Certain heart problems or conditions, such as heart failure, coronary artery disease, heart valve problems, or heart surgery. ??? Diabetes. ??? Overactive thyroid (hyperthyroidism). ??? Chronic kidney disease. ??? Certain lung conditions, such as emphysema, pneumonia, or COPD. ??? Obstructive sleep apnea. In some cases, the cause of this condition is not known. What increases the risk? This condition is more likely to develop in: ??? Older adults. ??? Athletes who do endurance exercise. ??? People who have a family history of AFib. ??? Males. ??? People who are . ??? People who are obese. ??? People who smoke or misuse alcohol. What are the signs or symptoms? Symptoms of this condition include: ??? Fast or irregular heartbeats (palpitations). ??? Discomfort or pain in your chest. ??? Shortness of breath. ??? Sudden light-headedness or weakness. ??? Tiring easily during exercise or activity. ??? Syncope (fainting). ??? Sweating. In some cases, there are no symptoms. How is this diagnosed? Your health care provider may detect AFib when taking your pulse. If detected, this condition may be diagnosed with: ??? An electrocardiogram (ECG) to check electrical signals of the heart. ??? An ambulatory teletypesetter monitor to record your heart's activity for a few days. ??? A transthoracic echocardiogram (TTE) to create pictures of your heart. ??? A transesophageal echocardiogram (MARYCRUZ) to create even clearer pictures of your heart. ??? A stress test to check your blood supply while you exercise. ??? Imaging tests, such as a CT scan or chest X-ray. ??? Blood tests. How is this treated? Treatment depends on underlying conditions and how you feel when you get AFib. This condition may be treated with: ??? Medicines to prevent blood clots or to treat heart rate or heart rhythm problems. ??? Electrical cardioversion to reset the heart's rhythm. ??? A pacemaker to correct abnormal heart rhythm. ??? Ablation to remove the heart tissue that sends abnormal signals. ??? Left atrial appendage closure to seal the area where blood clots can form. In some cases, underlying conditions will be treated. Follow these instructions at home: Medicines ??? Take over-the counter and prescription medicines only as told by your provider. ??? Do not take any new medicines without talking to your provider. ??? If you are taking blood thinners: ? Talk with your provider before taking aspirin or NSAIDs. These medicines can raise your risk of bleeding. ? Take your medicines as told. Take them at the same time each day. ? Do not do things that could hurt or bruise you. Be careful to avoid falls. ? Wear an alert bracelet or carry a card that says that you take blood thinners. Lifestyle ??? Do not use any products that contain nicotine or tobacco. These products include cigarettes, chewing tobacco, and vaping devices, such as e-cigarettes. If you need help quitting, ask your provider. ??? Eat heart-healthy foods. Talk with a food expert (dietitian) to make an eating plan that is right for you. ??? Exercise regularly as told by your provider. ??? Do not drink alcohol. ??? Lose weight if you are overweight. General instructions ??? If you have obstructive sleep apnea, manage your condition as told by your provider. ??? Do not use diet pills unless your provider approves. Diet pills can make heart problems worse. ??? Keep all follow-up visits. Your provider will want to check your heart rate and rhythm regularly. Contact a health care provider if: ??? You notice a change in the rate, rhythm, or strength of your heartbeat. ??? You are taking a blood thinner and you notice more bruising. ??? You tire more easily when you exercise or do heavy work. ??? You have a sudden change in weight. Get help right away if: ??? You have chest pain. ??? You have trouble breathing. ??? You have side effects of blood thinners, such as blood in your vomit, poop (stool), or pee (urine), or bleeding that does not stop. ??? You have any symptoms of a stroke. BE FAST is an easy way to remember the main warning s (more content not included)...[facility] 01-09-2025 Hospital Discharge instructions Patient Education 01/09/2025 11:23:50 Hypertension, Adult Hypertension, Adult High blood pressure (hypertension) is when the force of blood pumping through the arteries is too strong. The arteries are the blood vessels that carry blood from the heart throughout the body. Hypertension forces the heart to work harder to pump blood and may cause arteries to become narrow or stiff. Untreated or uncontrolled hypertension can lead to a heart attack, heart failure, a stroke, kidney disease, and other problems. A blood pressure reading consists of a higher number over a lower number. Ideally, your blood pressure should be below 120/80. The first ( top ) number is called the systolic pressure. It is a measure of the pressure in your arteries as your heart beats. The second ( bottom ) number is called the diastolic pressure. It is a measure of the pressure in your arteries as the heart relaxes. What are the causes? The exact cause of this condition is not known. There are some conditions that result in high bloodpressure. What increases the risk? Certain factors may make you more likely to develop high blood pressure. Some of these risk factorsare under your control, including: Smoking. Not getting enough exercise or physical activity. Being overweight. Having too much fat, sugar, calories, or salt (sodium) in your diet. Drinking too much alcohol. Other risk factors include: Having a personal history of heart disease, diabetes, high cholesterol, or kidney disease. Stress. Having a family history of high blood pressure and high cholesterol. Having obstructive sleep apnea. Age. The risk increases with age. What are the signs or symptoms? High blood pressure may not cause symptoms. Very high blood pressure (hypertensive crisis) may cause: Headache. Fast or irregular heartbeats (palpitations). Shortness of breath. Nosebleed. Nausea and vomiting. Vision changes. Severe chest pain, dizziness, and seizures. How is this diagnosed? This condition is diagnosed by measuring your blood pressure while you are seated, with your arm resting on a flat surface, your legs uncrossed, and your feet flat on the floor. The cuff of the bloodpressure monitor will be placed directly against the skin of your upper arm at the level of your heart. Blood pressure should be measured at least twice using the same arm. Certain conditions can cause a difference in blood pressure between your right and left arms. If you have a high blood pressure reading during one visit or you have normal blood pressure with other risk factors, you may be asked to: Return on a different day to have your blood pressure checked again. Monitor your blood pressure at home for 1 week or longer. If you are diagnosed with hypertension, you may have other blood or imaging tests to help your health care provider understand your overall risk for other conditions. How is this treated? This condition is treated by making healthy lifestyle changes, such as eating healthy foods, exercising more, and reducing your alcohol intake. You may be referred for counseling on a healthy diet and physical activity. Your health care provider may prescribe medicine if lifestyle changes are not enough to get your blood pressure under control and if: Your systolic blood pressure is above 130. Your diastolic blood pressure is above 80. Your personal target blood pressure may vary depending on your medical conditions, your age, and other factors. Follow these instructions at home: Eating and drinking Eat a diet that is high in fiber and potassium, and low in sodium, added sugar, and fat. An exampleof this eating plan is called the DASH diet. DASH stands for Dietary Approaches to Stop Hypertension. To eat this way: ?Eat plenty of fresh fruits and vegetables. Try to fill one half of your plate at each meal with fruits and vegetables. ?Eat whole grains, such as whole-wheat pasta, brown rice, or whole-grain bread. Fill about one fourth of your plate with whole grains. ?Eat or drink low-fat dairy products, such as skim milk or low-fat yogurt. ?Avoid fatty cuts of meat, processed or cured meats, and poultry with skin. Fill about one fourth of your plate with lean proteins, such as fish, chicken without skin, beans, eggs, or tofu. ?Avoid pre-made and processed foods. These tend to be higher in sodium, added sugar, and fat. Reduce your daily sodium intake. Many people with hypertension should eat less than 1,500 mg of sodium a day. Do not drink alcohol if: ?Your health care provider tells you not to drink. ?You are , may be , or are planning to become . If you drink alcohol: ?Limit how much you have to: ?0 1 drink a day for women. ?0 2 drinks a day for men. ?Know how much alcohol is in your drink. In the [place] one drink equals one 12 oz bottle of beer (355 mL), one 5 oz glass of wine (148 mL), or one 1 oz glass of hard liquor (44 mL). Lifestyle Work with your health care provider to maintain a healthy body weight or to lose weight. Ask what an ideal weight is for you. Get at least 30 minutes of exercise that causes your heart to beat faster (aerobic exercise) most days of the week. Activities may include walking, swimming, or biking. Include exercise to strengthen your muscles (resistance exercise), such as Pilates or lifting weights, as part of your weekly exercise routine. Try to do these types of exercises for 30 minutes at least 3 days a week. Do not use any products that contain nicotine or tobacco. These products include cigarettes, chewing tobacco, and vaping devices, such as e-cigarettes. If you need help quitting, ask your health careprovider. Monitor your blood pressure at home as told by your health care provider. Keep all follow-up visits. This is important. Medicines Take [id number] and prescription medicines only as told by your health care provider. Follow directions carefully. Blood pressure medicines must be taken as prescribed. Do not skip doses of blood pressure medicine. Doing this puts you at risk for problems and can makethe medicine less effective. Ask your health care provider about side effects or reactions to medicines that you should watch for. Contact a health care provider if you: Think you are having a reaction to a medicine you are taking. Have headaches that keep coming back (recurring). Feel dizzy. Have swelling in your ankles. Have trouble with your vision. Get help right away if you: Develop a severe headache or confusion. Have unusual weakness or numbness. Feel faint. Have severe pain in your chest or abdomen. Vomit repeatedly. Have trouble breathing. These symptoms may be an emergency. Get help right away. Call 911. Do not wait to see if the symptoms will go away. Do not drive yourself to the hospital. Summary Hypertension is when the force of blood pumping through your arteries is too strong. If this condition is not controlled, it may put you at risk for serious complications. Your personal target blood pressure may vary depending on your medical conditions, your age, and other factors. For most people, a normal blood pressure is less than 120/80. Hypertension is treated with lifestyle changes, medicines, or a combination of both. Lifestyle changes include losing weight, eating a healthy, low-sodium diet, exercising more, and limiting alcohol. This information is not intended to replace advice given to you by your health care provider. Make sure you discuss any questions you have with your health care provider. Document Revised: 02/09/2022 Document Reviewed: 02/09/2022 [employer] [place] Patient Education 2023 [employer]. Follow Up Care 12/28/2024 11:14:26 With:Viral PARKER, [employer]KER, Stacia Mcmahan Address: [address] [place] [id number] When: only if needed [facility] 09-24-2025 NotePatient Education Cardiovascular Hypertension, Adult High blood pressure (hypertension) is when the force of blood pumping through the arteries is too strong. The arteries are the blood vessels that carry blood from the heart throughout the body. Hypertension forces the heart to work harder to pump blood and may cause arteries to become narrow or stiff. Untreated or uncontrolled hypertension can lead to a heart attack, heart failure, a stroke, kidney disease, and other problems. A blood pressure reading consists of a higher number over a lower number. Ideally, your blood pressure should be below 120/80. The first ( top ) number is called the systolic pressure. It is a measure of the pressure in your arteries as your heart beats. The second ( bottom ) number is called the diastolic pressure. It is a measure of the pressure in your arteries as the heart relaxes. What are the causes? The exact cause of this condition is not known. There are some conditions that result in high bloodpressure. What increases the risk? Certain factors may make you more likely to develop high blood pressure. Some of these risk factorsare under your control, including: ??? Smoking. ??? Not getting enough exercise or physical activity. ??? Being overweight. ??? Having too much fat, sugar, calories, or salt (sodium) in your diet. ??? Drinking too much alcohol. Other risk factors include: ??? Having a personal history of heart disease, diabetes, high cholesterol, or kidney disease. ??? Stress. ??? Having a family history of high blood pressure and high cholesterol. ??? Having obstructive sleep apnea. ??? Age. The risk increases with age. What are the signs or symptoms? High blood pressure may not cause symptoms. Very high blood pressure (hypertensive crisis) may cause: ??? Headache. ??? Fast or irregular heartbeats (palpitations). ??? Shortness of breath. ??? Nosebleed. ??? Nausea and vomiting. ??? Vision changes. ??? Severe chest pain, dizziness, and seizures. How is this diagnosed? This condition is diagnosed by measuring your blood pressure while you are seated, with your arm resting on a flat surface, your legs uncrossed, and your feet flat on the floor. The cuff of the bloodpressure monitor will be placed directly against the skin of your upper arm at the level of your heart. Blood pressure should be measured at least twice using the same arm. Certain conditions can cause a difference in blood pressure between your right and left arms. If you have a high blood pressure reading during one visit or you have normal blood pressure with other risk factors, you may be asked to: ??? Return on a different day to have your blood pressure checked again. ??? Monitor your blood pressure at home for 1 week or longer. If you are diagnosed with hypertension, you may have other blood or imaging tests to help your health care provider understand your overall risk for other conditions. How is this treated? This condition is treated by making healthy lifestyle changes, such as eating healthy foods, exercising more, and reducing your alcohol intake. You may be referred for counseling on a healthy diet and physical activity. Your health care provider may prescribe medicine if lifestyle changes are not enough to get your blood pressure under control and if: ??? Your systolic blood pressure is above 130. ??? Your diastolic blood pressure is above 80. Your personal target blood pressure may vary depending on your medical conditions, your age, and other factors. Follow these instructions at home: Eating and drinking ??? Eat a diet that is high in fiber and potassium, and low in sodium, added sugar, and fat. An example of this eating plan is called the DASH diet. DASH stands for Dietary Approaches to Stop Hypertension. To eat this way: ? Eat plenty of fresh fruits and vegetables. Try to fill one half of your plate at each meal with fruits and vegetables. ? Eat whole grains, such as whole-wheat pasta, brown rice, or whole-grain bread. Fill about one fourth of your plate with whole grains. ? Eat or drink low-fat dairy products, such as skim milk or low-fat yogurt. ? Avoid fatty cuts of meat, processed or cured meats, and poultry with skin. Fill about one fourth of your plate with lean proteins, such as fish, chicken without skin, beans, eggs, or tofu. ? Avoid pre-made and processed foods. These tend to be higher in sodium, added sugar, and fat. ??? Reduce your daily sodium intake. Many people with hypertension should eat less than 1,500 mg ofsodium a day. ??? Do not drink alcohol if: ? Your health care provider tells you not to drink. ? You are , may be , or are planning to become . ??? If you drink alcohol: ? Limit how much you have to: ? 0?1 drink a day for women. ? 0?2 drinks a day for men. ? Know how much alcohol is in your drink. In the [place] one drink equals one 12 oz bottle (more content not included)...[facility]09-10-2025 Hospital Discharge instructions Patient Education 12/26/2024 16:15:47 Hypertension, Adult Hypertension, Adult High blood pressure (hypertension) is when the force of blood pumping through the arteries is too strong. The arteries are the blood vessels that carry blood from the heart throughout the body. Hypertension forces the heart to work harder to pump blood and may cause arteries to become narrow or stiff. Untreated or uncontrolled hypertension can lead to a heart attack, heart failure, a stroke, kidney disease, and other problems. A blood pressure reading consists of a higher number over a lower number. Ideally, your blood pressure should be below 120/80. The first ( top ) number is called the systolic pressure. It is a measure of the pressure in your arteries as your heart beats. The second ( bottom ) number is called the diastolic pressure. It is a measure of the pressure in your arteries as the heart relaxes. What are the causes? The exact cause of this condition is not known. There are some conditions that result in high bloodpressure. What increases the risk? Certain factors may make you more likely to develop high blood pressure. Some of these risk factorsare under your control, including: Smoking. Not getting enough exercise or physical activity. Being overweight. Having too much fat, sugar, calories, or salt (sodium) in your diet. Drinking too much alcohol. Other risk factors include: Having a personal history of heart disease, diabetes, high cholesterol, or kidney disease. Stress. Having a family history of high blood pressure and high cholesterol. Having obstructive sleep apnea. Age. The risk increases with age. What are the signs or symptoms? High blood pressure may not cause symptoms. Very high blood pressure (hypertensive crisis) may cause: Headache. Fast or irregular heartbeats (palpitations). Shortness of breath. Nosebleed. Nausea and vomiting. Vision changes. Severe chest pain, dizziness, and seizures. How is this diagnosed? This condition is diagnosed by measuring your blood pressure while you are seated, with your arm resting on a flat surface, your legs uncrossed, and your feet flat on the floor. The cuff of the bloodpressure monitor will be placed directly against the skin of your upper arm at the level of your heart. Blood pressure should be measured at least twice using the same arm. Certain conditions can cause a difference in blood pressure between your right and left arms. If you have a high blood pressure reading during one visit or you have normal blood pressure with other risk factors, you may be asked to: Return on a different day to have your blood pressure checked again. Monitor your blood pressure at home for 1 week or longer. If you are diagnosed with hypertension, you may have other blood or imaging tests to help your health care provider understand your overall risk for other conditions. How is this treated? This condition is treated by making healthy lifestyle changes, such as eating healthy foods, exercising more, and reducing your alcohol intake. You may be referred for counseling on a healthy diet and physical activity. Your health care provider may prescribe medicine if lifestyle changes are not enough to get your blood pressure under control and if: Your systolic blood pressure is above 130. Your diastolic blood pressure is above 80. Your personal target blood pressure may vary depending on your medical conditions, your age, and other factors. Follow these instructions at home: Eating and drinking Eat a diet that is high in fiber and potassium, and low in sodium, added sugar, and fat. An exampleof this eating plan is called the DASH diet. DASH stands for Dietary Approaches to Stop Hypertension. To eat this way: ?Eat plenty of fresh fruits and vegetables. Try to fill one half of your plate at each meal with fruits and vegetables. ?Eat whole grains, such as whole-wheat pasta, brown rice, or whole-grain bread. Fill about one fourth of your plate with whole grains. ?Eat or drink low-fat dairy products, such as skim milk or low-fat yogurt. ?Avoid fatty cuts of meat, processed or cured meats, and poultry with skin. Fill about one fourth of your plate with lean proteins, such as fish, chicken without skin, beans, eggs, or tofu. ?Avoid pre-made and processed foods. These tend to be higher in sodium, added sugar, and fat. Reduce your daily sodium intake. Many people with hypertension should eat less than 1,500 mg of sodium a day. Do not drink alcohol if: ?Your health care provider tells you not to drink. ?You are , may be , or are planning to become . If you drink alcohol: ?Limit how much you have to: ?0 1 drink a day for women. ?0 2 drinks a day for men. ?Know how much alcohol is in your drink. In the [place] one drink equals one 12 oz bottle of beer (355 mL), one 5 oz glass of wine (148 mL), or one 1 oz glass of hard liquor (44 mL). Lifestyle Work with your health care provider to maintain a healthy body weight or to lose weight. Ask what an ideal weight is for you. Get at least 30 minutes of exercise that causes your heart to beat faster (aerobic exercise) most days of the week. Activities may include walking, swimming, or biking. Include exercise to strengthen your muscles (resistance exercise), such as Pilates or lifting weights, as part of your weekly exercise routine. Try to do these types of exercises for 30 minutes at least 3 days a week. Do not use any products that contain nicotine or tobacco. These products include cigarettes, chewing tobacco, and vaping devices, such as e-cigarettes. If you need help quitting, ask your health careprovider. Monitor your blood pressure at home as told by your health care provider. Keep all follow-up visits. This is important. Medicines Take iqdw-[id number] and prescription medicines only as told by your health care provider. Follow directions carefully. Blood pressure medicines must be taken as prescribed. Do not skip doses of blood pressure medicine. Doing this puts you at risk for problems and can makethe medicine less effective. Ask your health care provider about side effects or reactions to medicines that you should watch for. Contact a health care provider if you: Think you are having a reaction to a medicine you are taking. Have headaches that keep coming back (recurring). Feel dizzy. Have swelling in your ankles. Have trouble with your vision. Get help right away if you: Develop a severe headache or confusion. Have unusual weakness or numbness. Feel faint. Have severe pain in your chest or abdomen. Vomit repeatedly. Have trouble breathing. These symptoms may be an emergency. Get help right away. Call 911. Do not wait to see if the symptoms will go away. Do not drive yourself to the hospital. Summary Hypertension is when the force of blood pumping through your arteries is too strong. If this condition is not controlled, it may put you at risk for serious complications. Your personal target blood pressure may vary depending on your medical conditions, your age, and other factors. For most people, a normal blood pressure is less than 120/80. Hypertension is treated with lifestyle changes, medicines, or a combination of both. Lifestyle changes include losing weight, eating a healthy, low-sodium diet, exercising more, and limiting alcohol. This information is not intended to replace advice given to you by your health care provider. Make sure you discuss any questions you have with your health care provider. Document Revised: 02/09/2022 Document Reviewed: 02/09/2022 [employer] [place] Patient Education 2023 [employer]. Follow Up Care 12/21/2024 09:29:30 With:Viral PARKER, [employer]ENT-ALBINO, Stacia Mcmahan Address: [address] [place] [phone] When:1 to 2 weeks Comments:chronic care [facility] 09-10-2025 NotePatient Education Cardiovascular Hypertension, Adult High blood pressure (hypertension) is when the force of blood pumping through the arteries is too strong. The arteries are the blood vessels that carry blood from the heart throughout the body. Hypertension forces the heart to work harder to pump blood and may cause arteries to become narrow or stiff. Untreated or uncontrolled hypertension can lead to a heart attack, heart failure, a stroke, kidney disease, and other problems. A blood pressure reading consists of a higher number over a lower number. Ideally, your blood pressure should be below 120/80. The first ( top ) number is called the systolic pressure. It is a measure of the pressure in your arteries as your heart beats. The second ( bottom ) number is called the diastolic pressure. It is a measure of the pressure in your arteries as the heart relaxes. What are the causes? The exact cause of this condition is not known. There are some conditions that result in high bloodpressure. What increases the risk? Certain factors may make you more likely to develop high blood pressure. Some of these risk factorsare under your control, including: ??? Smoking. ??? Not getting enough exercise or physical activity. ??? Being overweight. ??? Having too much fat, sugar, calories, or salt (sodium) in your diet. ??? Drinking too much alcohol. Other risk factors include: ??? Having a personal history of heart disease, diabetes, high cholesterol, or kidney disease. ??? Stress. ??? Having a family history of high blood pressure and high cholesterol. ??? Having obstructive sleep apnea. ??? Age. The risk increases with age. What are the signs or symptoms? High blood pressure may not cause symptoms. Very high blood pressure (hypertensive crisis) may cause: ??? Headache. ??? Fast or irregular heartbeats (palpitations). ??? Shortness of breath. ??? Nosebleed. ??? Nausea and vomiting. ??? Vision changes. ??? Severe chest pain, dizziness, and seizures. How is this diagnosed? This condition is diagnosed by measuring your blood pressure while you are seated, with your arm resting on a flat surface, your legs uncrossed, and your feet flat on the floor. The cuff of the bloodpressure monitor will be placed directly against the skin of your upper arm at the level of your heart. Blood pressure should be measured at least twice using the same arm. Certain conditions can cause a difference in blood pressure between your right and left arms. If you have a high blood pressure reading during one visit or you have normal blood pressure with other risk factors, you may be asked to: ??? Return on a different day to have your blood pressure checked again. ??? Monitor your blood pressure at home for 1 week or longer. If you are diagnosed with hypertension, you may have other blood or imaging tests to help your health care provider understand your overall risk for other conditions. How is this treated? This condition is treated by making healthy lifestyle changes, such as eating healthy foods, exercising more, and reducing your alcohol intake. You may be referred for counseling on a healthy diet and physical activity. Your health care provider may prescribe medicine if lifestyle changes are not enough to get your blood pressure under control and if: ??? Your systolic blood pressure is above 130. ??? Your diastolic blood pressure is above 80. Your personal target blood pressure may vary depending on your medical conditions, your age, and other factors. Follow these instructions at home: Eating and drinking ??? Eat a diet that is high in fiber and potassium, and low in sodium, added sugar, and fat. An example of this eating plan is called the DASH diet. DASH stands for Dietary Approaches to Stop Hypertension. To eat this way: ? Eat plenty of fresh fruits and vegetables. Try to fill one half of your plate at each meal with fruits and vegetables. ? Eat whole grains, such as whole-wheat pasta, brown rice, or whole-grain bread. Fill about one fourth of your plate with whole grains. ? Eat or drink low-fat dairy products, such as skim milk or low-fat yogurt. ? Avoid fatty cuts of meat, processed or cured meats, and poultry with skin. Fill about one fourth of your plate with lean proteins, such as fish, chicken without skin, beans, eggs, or tofu. ? Avoid pre-made and processed foods. These tend to be higher in sodium, added sugar, and fat. ??? Reduce your daily sodium intake. Many people with hypertension should eat less than 1,500 mg ofsodium a day. ??? Do not drink alcohol if: ? Your health care provider tells you not to drink. ? You are , may be , or are planning to become . ??? If you drink alcohol: ? Limit how much you have to: ? 0?1 drink a day for women. ? 0?2 drinks a day for men. ? Know how much alcohol is in your drink. In the [place] one drink equals one 12 oz bottle (more content not included)...[facility]09-05-2025 Hospital Discharge instructions Patient Education 12/21/2024 10:09:23 Hypertension, Adult Hypertension, Adult High blood pressure (hypertension) is when the force of blood pumping through the arteries is too strong. The arteries are the blood vessels that carry blood from the heart throughout the body. Hypertension forces the heart to work harder to pump blood and may cause arteries to become narrow or stiff. Untreated or uncontrolled hypertension can lead to a heart attack, heart failure, a stroke, kidney disease, and other problems. A blood pressure reading consists of a higher number over a lower number. Ideally, your blood pressure should be below 120/80. The first ( top ) number is called the systolic pressure. It is a measure of the pressure in your arteries as your heart beats. The second ( bottom ) number is called the diastolic pressure. It is a measure of the pressure in your arteries as the heart relaxes. What are the causes? The exact cause of this condition is not known. There are some conditions that result in high bloodpressure. What increases the risk? Certain factors may make you more likely to develop high blood pressure. Some of these risk factorsare under your control, including: Smoking. Not getting enough exercise or physical activity. Being overweight. Having too much fat, sugar, calories, or salt (sodium) in your diet. Drinking too much alcohol. Other risk factors include: Having a personal history of heart disease, diabetes, high cholesterol, or kidney disease. Stress. Having a family history of high blood pressure and high cholesterol. Having obstructive sleep apnea. Age. The risk increases with age. What are the signs or symptoms? High blood pressure may not cause symptoms. Very high blood pressure (hypertensive crisis) may cause: Headache. Fast or irregular heartbeats (palpitations). Shortness of breath. Nosebleed. Nausea and vomiting. Vision changes. Severe chest pain, dizziness, and seizures. How is this diagnosed? This condition is diagnosed by measuring your blood pressure while you are seated, with your arm resting on a flat surface, your legs uncrossed, and your feet flat on the floor. The cuff of the bloodpressure monitor will be placed directly against the skin of your upper arm at the level of your heart. Blood pressure should be measured at least twice using the same arm. Certain conditions can cause a difference in blood pressure between your right and left arms. If you have a high blood pressure reading during one visit or you have normal blood pressure with other risk factors, you may be asked to: Return on a different day to have your blood pressure checked again. Monitor your blood pressure at home for 1 week or longer. If you are diagnosed with hypertension, you may have other blood or imaging tests to help your health care provider understand your overall risk for other conditions. How is this treated? This condition is treated by making healthy lifestyle changes, such as eating healthy foods, exercising more, and reducing your alcohol intake. You may be referred for counseling on a healthy diet and physical activity. Your health care provider may prescribe medicine if lifestyle changes are not enough to get your blood pressure under control and if: Your systolic blood pressure is above 130. Your diastolic blood pressure is above 80. Your personal target blood pressure may vary depending on your medical conditions, your age, and other factors. Follow these instructions at home: Eating and drinking Eat a diet that is high in fiber and potassium, and low in sodium, added sugar, and fat. An exampleof this eating plan is called the DASH diet. DASH stands for Dietary Approaches to Stop Hypertension. To eat this way: ?Eat plenty of fresh fruits and vegetables. Try to fill one half of your plate at each meal with fruits and vegetables. ?Eat whole grains, such as whole-wheat pasta, brown rice, or whole-grain bread. Fill about one fourth of your plate with whole grains. ?Eat or drink low-fat dairy products, such as skim milk or low-fat yogurt. ?Avoid fatty cuts of meat, processed or cured meats, and poultry with skin. Fill about one fourth of your plate with lean proteins, such as fish, chicken without skin, beans, eggs, or tofu. ?Avoid pre-made and processed foods. These tend to be higher in sodium, added sugar, and fat. Reduce your daily sodium intake. Many people with hypertension should eat less than 1,500 mg of sodium a day. Do not drink alcohol if: ?Your health care provider tells you not to drink. ?You are , may be , or are planning to become . If you drink alcohol: ?Limit how much you have to: ?0 1 drink a day for women. ?0 2 drinks a day for men. ?Know how much alcohol is in your drink. In the [place] one drink equals one 12 oz bottle of beer (355 mL), one 5 oz glass of wine (148 mL), or one 1 oz glass of hard liquor (44 mL). Lifestyle Work with your health care provider to maintain a healthy body weight or to lose weight. Ask what an ideal weight is for you. Get at least 30 minutes of exercise that causes your heart to beat faster (aerobic exercise) most days of the week. Activities may include walking, swimming, or biking. Include exercise to strengthen your muscles (resistance exercise), such as Pilates or lifting weights, as part of your weekly exercise routine. Try to do these types of exercises for 30 minutes at least 3 days a week. Do not use any products that contain nicotine or tobacco. These products include cigarettes, chewing tobacco, and vaping devices, such as e-cigarettes. If you need help quitting, ask your health careprovider. Monitor your blood pressure at home as told by your health care provider. Keep all follow-up visits. This is important. Medicines Take ptat-asv-wttxxpl and prescription medicines only as told by your health care provider. Follow directions carefully. Blood pressure medicines must be taken as prescribed. Do not skip doses of blood pressure medicine. Doing this puts you at risk for problems and can makethe medicine less effective. Ask your health care provider about side effects or reactions to medicines that you should watch for. Contact a health care provider if you: Think you are having a reaction to a medicine you are taking. Have headaches that keep coming back (recurring). Feel dizzy. Have swelling in your ankles. Have trouble with your vision. Get help right away if you: Develop a severe headache or confusion. Have unusual weakness or numbness. Feel faint. Have severe pain in your chest or abdomen. Vomit repeatedly. Have trouble breathing. These symptoms may be an emergency. Get help right away. Call 911. Do not wait to see if the symptoms will go away. Do not drive yourself to the hospital. Summary Hypertension is when the force of blood pumping through your arteries is too strong. If this condition is not controlled, it may put you at risk for serious complications. Your personal target blood pressure may vary depending on your medical conditions, your age, and other factors. For most people, a normal blood pressure is less than 120/80. Hypertension is treated with lifestyle changes, medicines, or a combination of both. Lifestyle changes include losing weight, eating a healthy, low-sodium diet, exercising more, and limiting alcohol. This information is not intended to replace advice given to you by your health care provider. Make sure you discuss any questions you have with your health care provider. Document Revised: 02/09/2022 Document Reviewed: 02/09/2022 [employer] [place] Patient Education 2023 [employer]. Follow Up Care 12/14/2024 11:33:43 With:Viral PARKER, BRUNO-ALBINO, Stacia Mcmahan Address: [address] [place] [phone] When:Within 1 Week(s) Comments:BP, bring home BP cuff [facility] 09-05-2025 NotePatient Education Cardiovascular Hypertension, Adult High blood pressure (hypertension) is when the force of blood pumping through the arteries is too strong. The arteries are the blood vessels that carry blood from the heart throughout the body. Hypertension forces the heart to work harder to pump blood and may cause arteries to become narrow or stiff. Untreated or uncontrolled hypertension can lead to a heart attack, heart failure, a stroke, kidney disease, and other problems. A blood pressure reading consists of a higher number over a lower number. Ideally, your blood pressure should be below 120/80. The first ( top ) number is called the systolic pressure. It is a measure of the pressure in your arteries as your heart beats. The second ( bottom ) number is called the diastolic pressure. It is a measure of the pressure in your arteries as the heart relaxes. What are the causes? The exact cause of this condition is not known. There are some conditions that result in high bloodpressure. What increases the risk? Certain factors may make you more likely to develop high blood pressure. Some of these risk factorsare under your control, including: ??? Smoking. ??? Not getting enough exercise or physical activity. ??? Being overweight. ??? Having too much fat, sugar, calories, or salt (sodium) in your diet. ??? Drinking too much alcohol. Other risk factors include: ??? Having a personal history of heart disease, diabetes, high cholesterol, or kidney disease. ??? Stress. ??? Having a family history of high blood pressure and high cholesterol. ??? Having obstructive sleep apnea. ??? Age. The risk increases with age. What are the signs or symptoms? High blood pressure may not cause symptoms. Very high blood pressure (hypertensive crisis) may cause: ??? Headache. ??? Fast or irregular heartbeats (palpitations). ??? Shortness of breath. ??? Nosebleed. ??? Nausea and vomiting. ??? Vision changes. ??? Severe chest pain, dizziness, and seizures. How is this diagnosed? This condition is diagnosed by measuring your blood pressure while you are seated, with your arm resting on a flat surface, your legs uncrossed, and your feet flat on the floor. The cuff of the bloodpressure monitor will be placed directly against the skin of your upper arm at the level of your heart. Blood pressure should be measured at least twice using the same arm. Certain conditions can cause a difference in blood pressure between your right and left arms. If you have a high blood pressure reading during one visit or you have normal blood pressure with other risk factors, you may be asked to: ??? Return on a different day to have your blood pressure checked again. ??? Monitor your blood pressure at home for 1 week or longer. If you are diagnosed with hypertension, you may have other blood or imaging tests to help your health care provider understand your overall risk for other conditions. How is this treated? This condition is treated by making healthy lifestyle changes, such as eating healthy foods, exercising more, and reducing your alcohol intake. You may be referred for counseling on a healthy diet and physical activity. Your health care provider may prescribe medicine if lifestyle changes are not enough to get your blood pressure under control and if: ??? Your systolic blood pressure is above 130. ??? Your diastolic blood pressure is above 80. Your personal target blood pressure may vary depending on your medical conditions, your age, and other factors. Follow these instructions at home: Eating and drinking ??? Eat a diet that is high in fiber and potassium, and low in sodium, added sugar, and fat. An example of this eating plan is called the DASH diet. DASH stands for Dietary Approaches to Stop Hypertension. To eat this way: ? Eat plenty of fresh fruits and vegetables. Try to fill one half of your plate at each meal with fruits and vegetables. ? Eat whole grains, such as whole-wheat pasta, brown rice, or whole-grain bread. Fill about one fourth of your plate with whole grains. ? Eat or drink low-fat dairy products, such as skim milk or low-fat yogurt. ? Avoid fatty cuts of meat, processed or cured meats, and poultry with skin. Fill about one fourth of your plate with lean proteins, such as fish, chicken without skin, beans, eggs, or tofu. ? Avoid pre-made and processed foods. These tend to be higher in sodium, added sugar, and fat. ??? Reduce your daily sodium intake. Many people with hypertension should eat less than 1,500 mg ofsodium a day. ??? Do not drink alcohol if: ? Your health care provider tells you not to drink. ? You are , may be , or are planning to become . ??? If you drink alcohol: ? Limit how much you have to: ? 0?1 drink a day for women. ? 0?2 drinks a day for men. ? Know how much alcohol is in your drink. In the [place] one drink equals one 12 oz bottle (more content not included)...[facility]08-28-2025 Hospital Discharge instructions Patient Education 12/13/2024 14:34:12 Hypertension, Adult Hypertension, Adult High blood pressure (hypertension) is when the force of blood pumping through the arteries is too strong. The arteries are the blood vessels that carry blood from the heart throughout the body. Hypertension forces the heart to work harder to pump blood and may cause arteries to become narrow or stiff. Untreated or uncontrolled hypertension can lead to a heart attack, heart failure, a stroke, kidney disease, and other problems. A blood pressure reading consists of a higher number over a lower number. Ideally, your blood pressure should be below 120/80. The first ( top ) number is called the systolic pressure. It is a measure of the pressure in your arteries as your heart beats. The second ( bottom ) number is called the diastolic pressure. It is a measure of the pressure in your arteries as the heart relaxes. What are the causes? The exact cause of this condition is not known. There are some conditions that result in high bloodpressure. What increases the risk? Certain factors may make you more likely to develop high blood pressure. Some of these risk factorsare under your control, including: Smoking. Not getting enough exercise or physical activity. Being overweight. Having too much fat, sugar, calories, or salt (sodium) in your diet. Drinking too much alcohol. Other risk factors include: Having a personal history of heart disease, diabetes, high cholesterol, or kidney disease. Stress. Having a family history of high blood pressure and high cholesterol. Having obstructive sleep apnea. Age. The risk increases with age. What are the signs or symptoms? High blood pressure may not cause symptoms. Very high blood pressure (hypertensive crisis) may cause: Headache. Fast or irregular heartbeats (palpitations). Shortness of breath. Nosebleed. Nausea and vomiting. Vision changes. Severe chest pain, dizziness, and seizures. How is this diagnosed? This condition is diagnosed by measuring your blood pressure while you are seated, with your arm resting on a flat surface, your legs uncrossed, and your feet flat on the floor. The cuff of the bloodpressure monitor will be placed directly against the skin of your upper arm at the level of your heart. Blood pressure should be measured at least twice using the same arm. Certain conditions can cause a difference in blood pressure between your right and left arms. If you have a high blood pressure reading during one visit or you have normal blood pressure with other risk factors, you may be asked to: Return on a different day to have your blood pressure checked again. Monitor your blood pressure at home for 1 week or longer. If you are diagnosed with hypertension, you may have other blood or imaging tests to help your health care provider understand your overall risk for other conditions. How is this treated? This condition is treated by making healthy lifestyle changes, such as eating healthy foods, exercising more, and reducing your alcohol intake. You may be referred for counseling on a healthy diet and physical activity. Your health care provider may prescribe medicine if lifestyle changes are not enough to get your blood pressure under control and if: Your systolic blood pressure is above 130. Your diastolic blood pressure is above 80. Your personal target blood pressure may vary depending on your medical conditions, your age, and other factors. Follow these instructions at home: Eating and drinking Eat a diet that is high in fiber and potassium, and low in sodium, added sugar, and fat. An exampleof this eating plan is called the DASH diet. DASH stands for Dietary Approaches to Stop Hypertension. To eat this way: ?Eat plenty of fresh fruits and vegetables. Try to fill one half of your plate at each meal with fruits and vegetables. ?Eat whole grains, such as whole-wheat pasta, brown rice, or whole-grain bread. Fill about one fourth of your plate with whole grains. ?Eat or drink low-fat dairy products, such as skim milk or low-fat yogurt. ?Avoid fatty cuts of meat, processed or cured meats, and poultry with skin. Fill about one fourth of your plate with lean proteins, such as fish, chicken without skin, beans, eggs, or tofu. ?Avoid pre-made and processed foods. These tend to be higher in sodium, added sugar, and fat. Reduce your daily sodium intake. Many people with hypertension should eat less than 1,500 mg of sodium a day. Do not drink alcohol if: ?Your health care provider tells you not to drink. ?You are , may be , or are planning to become . If you drink alcohol: ?Limit how much you have to: ?0 1 drink a day for women. ?0 2 drinks a day for men. ?Know how much alcohol is in your drink. In the [place] one drink equals one 12 oz bottle of beer (355 mL), one 5 oz glass of wine (148 mL), or one 1 oz glass of hard liquor (44 mL). Lifestyle Work with your health care provider to maintain a healthy body weight or to lose weight. Ask what an ideal weight is for you. Get at least 30 minutes of exercise that causes your heart to beat faster (aerobic exercise) most days of the week. Activities may include walking, swimming, or biking. Include exercise to strengthen your muscles (resistance exercise), such as Pilates or lifting weights, as part of your weekly exercise routine. Try to do these types of exercises for 30 minutes at least 3 days a week. Do not use any products that contain nicotine or tobacco. These products include cigarettes, chewing tobacco, and vaping devices, such as e-cigarettes. If you need help quitting, ask your health careprovider. Monitor your blood pressure at home as told by your health care provider. Keep all follow-up visits. This is important. Medicines Take ntfm-yvs-lmjxffa and prescription medicines only as told by your health care provider. Follow directions carefully. Blood pressure medicines must be taken as prescribed. Do not skip doses of blood pressure medicine. Doing this puts you at risk for problems and can makethe medicine less effective. Ask your health care provider about side effects or reactions to medicines that you should watch for. Contact a health care provider if you: Think you are having a reaction to a medicine you are taking. Have headaches that keep coming back (recurring). Feel dizzy. Have swelling in your ankles. Have trouble with your vision. Get help right away if you: Develop a severe headache or confusion. Have unusual weakness or numbness. Feel faint. Have severe pain in your chest or abdomen. Vomit repeatedly. Have trouble breathing. These symptoms may be an emergency. Get help right away. Call 911. Do not wait to see if the symptoms will go away. Do not drive yourself to the hospital. Summary Hypertension is when the force of blood pumping through your arteries is too strong. If this condition is not controlled, it may put you at risk for serious complications. Your personal target blood pressure may vary depending on your medical conditions, your age, and other factors. For most people, a normal blood pressure is less than 120/80. Hypertension is treated with lifestyle changes, medicines, or a combination of both. Lifestyle changes include losing weight, eating a healthy, low-sodium diet, exercising more, and limiting alcohol. This information is not intended to replace advice given to you by your health care provider. Make sure you discuss any questions you have with your health care provider. Document Revised: 02/09/2022 Document Reviewed: 02/09/2022 [employer] Patient Education 2023 [employer]. Follow Up Care 12/07/2024 13:52:37 With:Viral PARKER, GENERAL PURCH[employer]ING AGENT-Stacia POSADA Address: [address] [place] [phone] When:Within 1 Week(s) [facility] 08-28-2025 NotePatient Education Cardiovascular Hypertension, Adult High blood pressure (hypertension) is when the force of blood pumping through the arteries is too strong. The arteries are the blood vessels that carry blood from the heart throughout the body. Hypertension forces the heart to work harder to pump blood and may cause arteries to become narrow or stiff. Untreated or uncontrolled hypertension can lead to a heart attack, heart failure, a stroke, kidney disease, and other problems. A blood pressure reading consists of a higher number over a lower number. Ideally, your blood pressure should be below 120/80. The first ( top ) number is called the systolic pressure. It is a measure of the pressure in your arteries as your heart beats. The second ( bottom ) number is called the diastolic pressure. It is a measure of the pressure in your arteries as the heart relaxes. What are the causes? The exact cause of this condition is not known. There are some conditions that result in high bloodpressure. What increases the risk? Certain factors may make you more likely to develop high blood pressure. Some of these risk factorsare under your control, including: ??? Smoking. ??? Not getting enough exercise or physical activity. ??? Being overweight. ??? Having too much fat, sugar, calories, or salt (sodium) in your diet. ??? Drinking too much alcohol. Other risk factors include: ??? Having a personal history of heart disease, diabetes, high cholesterol, or kidney disease. ??? Stress. ??? Having a family history of high blood pressure and high cholesterol. ??? Having obstructive sleep apnea. ??? Age. The risk increases with age. What are the signs or symptoms? High blood pressure may not cause symptoms. Very high blood pressure (hypertensive crisis) may cause: ??? Headache. ??? Fast or irregular heartbeats (palpitations). ??? Shortness of breath. ??? Nosebleed. ??? Nausea and vomiting. ??? Vision changes. ??? Severe chest pain, dizziness, and seizures. How is this diagnosed? This condition is diagnosed by measuring your blood pressure while you are seated, with your arm resting on a flat surface, your legs uncrossed, and your feet flat on the floor. The cuff of the bloodpressure monitor will be placed directly against the skin of your upper arm at the level of your heart. Blood pressure should be measured at least twice using the same arm. Certain conditions can cause a difference in blood pressure between your right and left arms. If you have a high blood pressure reading during one visit or you have normal blood pressure with other risk factors, you may be asked to: ??? Return on a different day to have your blood pressure checked again. ??? Monitor your blood pressure at home for 1 week or longer. If you are diagnosed with hypertension, you may have other blood or imaging tests to help your health care provider understand your overall risk for other conditions. How is this treated? This condition is treated by making healthy lifestyle changes, such as eating healthy foods, exercising more, and reducing your alcohol intake. You may be referred for counseling on a healthy diet and physical activity. Your health care provider may prescribe medicine if lifestyle changes are not enough to get your blood pressure under control and if: ??? Your systolic blood pressure is above 130. ??? Your diastolic blood pressure is above 80. Your personal target blood pressure may vary depending on your medical conditions, your age, and other factors. Follow these instructions at home: Eating and drinking ??? Eat a diet that is high in fiber and potassium, and low in sodium, added sugar, and fat. An example of this eating plan is called the DASH diet. DASH stands for Dietary Approaches to Stop Hypertension. To eat this way: ? Eat plenty of fresh fruits and vegetables. Try to fill one half of your plate at each meal with fruits and vegetables. ? Eat whole grains, such as whole-wheat pasta, brown rice, or whole-grain bread. Fill about one fourth of your plate with whole grains. ? Eat or drink low-fat dairy products, such as skim milk or low-fat yogurt. ? Avoid fatty cuts of meat, processed or cured meats, and poultry with skin. Fill about one fourth of your plate with lean proteins, such as fish, chicken without skin, beans, eggs, or tofu. ? Avoid pre-made and processed foods. These tend to be higher in sodium, added sugar, and fat. ??? Reduce your daily sodium intake. Many people with hypertension should eat less than 1,500 mg ofsodium a day. ??? Do not drink alcohol if: ? Your health care provider tells you not to drink. ? You are , may be , or are planning to become . ??? If you drink alcohol: ? Limit how much you have to: ? 0?1 drink a day for women. ? 0?2 drinks a day for men. ? Know how much alcohol is in your drink. In the [place] one drink equals one 12 oz bottle (more content not included)...[facility]08-22-2025 Hospital Discharge instructions Patient Education 12/07/2024 08:42:41 Hypertension, Adult Hypertension, Adult High blood pressure (hypertension) is when the force of blood pumping through the arteries is too strong. The arteries are the blood vessels that carry blood from the heart throughout the body. Hypertension forces the heart to work harder to pump blood and may cause arteries to become narrow or stiff. Untreated or uncontrolled hypertension can lead to a heart attack, heart failure, a stroke, kidney disease, and other problems. A blood pressure reading consists of a higher number over a lower number. Ideally, your blood pressure should be below 120/80. The first ( top ) number is called the systolic pressure. It is a measure of the pressure in your arteries as your heart beats. The second ( bottom ) number is called the diastolic pressure. It is a measure of the pressure in your arteries as the heart relaxes. What are the causes? The exact cause of this condition is not known. There are some conditions that result in high bloodpressure. What increases the risk? Certain factors may make you more likely to develop high blood pressure. Some of these risk factorsare under your control, including: Smoking. Not getting enough exercise or physical activity. Being overweight. Having too much fat, sugar, calories, or salt (sodium) in your diet. Drinking too much alcohol. Other risk factors include: Having a personal history of heart disease, diabetes, high cholesterol, or kidney disease. Stress. Having a family history of high blood pressure and high cholesterol. Having obstructive sleep apnea. Age. The risk increases with age. What are the signs or symptoms? High blood pressure may not cause symptoms. Very high blood pressure (hypertensive crisis) may cause: Headache. Fast or irregular heartbeats (palpitations). Shortness of breath. Nosebleed. Nausea and vomiting. Vision changes. Severe chest pain, dizziness, and seizures. How is this diagnosed? This condition is diagnosed by measuring your blood pressure while you are seated, with your arm resting on a flat surface, your legs uncrossed, and your feet flat on the floor. The cuff of the bloodpressure monitor will be placed directly against the skin of your upper arm at the level of your heart. Blood pressure should be measured at least twice using the same arm. Certain conditions can cause a difference in blood pressure between your right and left arms. If you have a high blood pressure reading during one visit or you have normal blood pressure with other risk factors, you may be asked to: Return on a different day to have your blood pressure checked again. Monitor your blood pressure at home for 1 week or longer. If you are diagnosed with hypertension, you may have other blood or imaging tests to help your health care provider understand your overall risk for other conditions. How is this treated? This condition is treated by making healthy lifestyle changes, such as eating healthy foods, exercising more, and reducing your alcohol intake. You may be referred for counseling on a healthy diet and physical activity. Your health care provider may prescribe medicine if lifestyle changes are not enough to get your blood pressure under control and if: Your systolic blood pressure is above 130. Your diastolic blood pressure is above 80. Your personal target blood pressure may vary depending on your medical conditions, your age, and other factors. Follow these instructions at home: Eating and drinking Eat a diet that is high in fiber and potassium, and low in sodium, added sugar, and fat. An exampleof this eating plan is called the DASH diet. DASH stands for Dietary Approaches to Stop Hypertension. To eat this way: ?Eat plenty of fresh fruits and vegetables. Try to fill one half of your plate at each meal with fruits and vegetables. ?Eat whole grains, such as whole-wheat pasta, brown rice, or whole-grain bread. Fill about one fourth of your plate with whole grains. ?Eat or drink low-fat dairy products, such as skim milk or low-fat yogurt. ?Avoid fatty cuts of meat, processed or cured meats, and poultry with skin. Fill about one fourth of your plate with lean proteins, such as fish, chicken without skin, beans, eggs, or tofu. ?Avoid pre-made and processed foods. These tend to be higher in sodium, added sugar, and fat. Reduce your daily sodium intake. Many people with hypertension should eat less than 1,500 mg of sodium a day. Do not drink alcohol if: ?Your health care provider tells you not to drink. ?You are , may be , or are planning to become . If you drink alcohol: ?Limit how much you have to: ?0 1 drink a day for women. ?0 2 drinks a day for men. ?Know how much alcohol is in your drink. In the [place] one drink equals one 12 oz bottle of beer (355 mL), one 5 oz glass of wine (148 mL), or one 1 oz glass of hard liquor (44 mL). Lifestyle Work with your health care provider to maintain a healthy body weight or to lose weight. Ask what an ideal weight is for you. Get at least 30 minutes of exercise that causes your heart to beat faster (aerobic exercise) most days of the week. Activities may include walking, swimming, or biking. Include exercise to strengthen your muscles (resistance exercise), such as Pilates or lifting weights, as part of your weekly exercise routine. Try to do these types of exercises for 30 minutes at least 3 days a week. Do not use any products that contain nicotine or tobacco. These products include cigarettes, chewing tobacco, and vaping devices, such as e-cigarettes. If you need help quitting, ask your health careprovider. Monitor your blood pressure at home as told by your health care provider. Keep all follow-up visits. This is important. Medicines Take muwq-[id number] and prescription medicines only as told by your health care provider. Follow directions carefully. Blood pressure medicines must be taken as prescribed. Do not skip doses of blood pressure medicine. Doing this puts you at risk for problems and can makethe medicine less effective. Ask your health care provider about side effects or reactions to medicines that you should watch for. Contact a health care provider if you: Think you are having a reaction to a medicine you are taking. Have headaches that keep coming back (recurring). Feel dizzy. Have swelling in your ankles. Have trouble with your vision. Get help right away if you: Develop a severe headache or confusion. Have unusual weakness or numbness. Feel faint. Have severe pain in your chest or abdomen. Vomit repeatedly. Have trouble breathing. These symptoms may be an emergency. Get help right away. Call 911. Do not wait to see if the symptoms will go away. Do not drive yourself to the hospital. Summary Hypertension is when the force of blood pumping through your arteries is too strong. If this condition is not controlled, it may put you at risk for serious complications. Your personal target blood pressure may vary depending on your medical conditions, your age, and other factors. For most people, a normal blood pressure is less than 120/80. Hypertension is treated with lifestyle changes, medicines, or a combination of both. Lifestyle changes include losing weight, eating a healthy, low-sodium diet, exercising more, and limiting alcohol. This information is not intended to replace advice given to you by your health care provider. Make sure you discuss any questions you have with your health care provider. Document Revised: 02/09/2022 Document Reviewed: 02/09/2022 [employer] Patient Education 2023 [employer]. Follow Up Care 12/07/2024 08:36:54 With:Viral PARKER, GENERAL PURCHASING AGENT-RACQUET MAKER, Stacia Mcmahan Address: [address] [place] [phone] When:Within 1 Week(s) [facility] 08-22-2025 NotePatient Education Cardiovascular Hypertension, Adult High blood pressure (hypertension) is when the force of blood pumping through the arteries is too strong. The arteries are the blood vessels that carry blood from the heart throughout the body. Hypertension forces the heart to work harder to pump blood and may cause arteries to become narrow or stiff. Untreated or uncontrolled hypertension can lead to a heart attack, heart failure, a stroke, kidney disease, and other problems. A blood pressure reading consists of a higher number over a lower number. Ideally, your blood pressure should be below 120/80. The first ( top ) number is called the systolic pressure. It is a measure of the pressure in your arteries as your heart beats. The second ( bottom ) number is called the diastolic pressure. It is a measure of the pressure in your arteries as the heart relaxes. What are the causes? The exact cause of this condition is not known. There are some conditions that result in high bloodpressure. What increases the risk? Certain factors may make you more likely to develop high blood pressure. Some of these risk factorsare under your control, including: ??? Smoking. ??? Not getting enough exercise or physical activity. ??? Being overweight. ??? Having too much fat, sugar, calories, or salt (sodium) in your diet. ??? Drinking too much alcohol. Other risk factors include: ??? Having a personal history of heart disease, diabetes, high cholesterol, or kidney disease. ??? Stress. ??? Having a family history of high blood pressure and high cholesterol. ??? Having obstructive sleep apnea. ??? Age. The risk increases with age. What are the signs or symptoms? High blood pressure may not cause symptoms. Very high blood pressure (hypertensive crisis) may cause: ??? Headache. ??? Fast or irregular heartbeats (palpitations). ??? Shortness of breath. ??? Nosebleed. ??? Nausea and vomiting. ??? Vision changes. ??? Severe chest pain, dizziness, and seizures. How is this diagnosed? This condition is diagnosed by measuring your blood pressure while you are seated, with your arm resting on a flat surface, your legs uncrossed, and your feet flat on the floor. The cuff of the bloodpressure monitor will be placed directly against the skin of your upper arm at the level of your heart. Blood pressure should be measured at least twice using the same arm. Certain conditions can cause a difference in blood pressure between your right and left arms. If you have a high blood pressure reading during one visit or you have normal blood pressure with other risk factors, you may be asked to: ??? Return on a different day to have your blood pressure checked again. ??? Monitor your blood pressure at home for 1 week or longer. If you are diagnosed with hypertension, you may have other blood or imaging tests to help your health care provider understand your overall risk for other conditions. How is this treated? This condition is treated by making healthy lifestyle changes, such as eating healthy foods, exercising more, and reducing your alcohol intake. You may be referred for counseling on a healthy diet and physical activity. Your health care provider may prescribe medicine if lifestyle changes are not enough to get your blood pressure under control and if: ??? Your systolic blood pressure is above 130. ??? Your diastolic blood pressure is above 80. Your personal target blood pressure may vary depending on your medical conditions, your age, and other factors. Follow these instructions at home: Eating and drinking ??? Eat a diet that is high in fiber and potassium, and low in sodium, added sugar, and fat. An example of this eating plan is called the DASH diet. DASH stands for Dietary Approaches to Stop Hypertension. To eat this way: ? Eat plenty of fresh fruits and vegetables. Try to fill one half of your plate at each meal with fruits and vegetables. ? Eat whole grains, such as whole-wheat pasta, brown rice, or whole-grain bread. Fill about one fourth of your plate with whole grains. ? Eat or drink low-fat dairy products, such as skim milk or low-fat yogurt. ? Avoid fatty cuts of meat, processed or cured meats, and poultry with skin. Fill about one fourth of your plate with lean proteins, such as fish, chicken without skin, beans, eggs, or tofu. ? Avoid pre-made and processed foods. These tend to be higher in sodium, added sugar, and fat. ??? Reduce your daily sodium intake. Many people with hypertension should eat less than 1,500 mg ofsodium a day. ??? Do not drink alcohol if: ? Your health care provider tells you not to drink. ? You are , may be , or are planning to become . ??? If you drink alcohol: ? Limit how much you have to: ? 0?1 drink a day for women. ? 0?2 drinks a day for men. ? Know how much alcohol is in your drink. In the [place] one drink equals one 12 oz bottle (more content not included)...[facility]08-15-2025 Hospital Discharge instructions Patient Education 11/30/2024 09:57:05 Laser Therapy for Kidney Stones, Care After Laser Therapy for Kidney Stones, Care After After laser therapy for kidney stones, it is common to have: Pain. A burning feeling when you pee (urinate). Small amounts of blood in your pee (urine). A need to pee a lot. Parts of the kidney stone in your pee. Mild discomfort in your back when you pee. You may have this if you had a small mesh tube (stent) placed during the procedure. Follow these instructions at home: Medicines Take ymnd-dle-pijwuwg and prescription medicines only as told by your health care provider. If you were prescribed antibiotics, take them as told by your provider. Do not stop using the antibiotic even if you start to feel better. Ask your provider if the medicine prescribed to you: ?Requires you to avoid driving or using machinery. ?Can cause constipation. You may need to take these actions to prevent or treat constipation: ?Drink enough fluid to keep your pee pale yellow. ?Take gzsd-hjf-jasslzf or prescription medicines. ?Eat foods that are high in fiber, such as beans, whole grains, and fresh fruits and vegetables. ?Limit foods that are high in fat and processed sugars, such as fried or sweet foods. Activity If you were given a sedative during the procedure, it can affect you for several hours. Do not drive or operate machinery until your provider says that it is safe. Return to your normal activities as told by your provider. Ask your provider what activities are safe for you. General instructions Your provider may recommend that you drink a lot of water for a few hours after your procedure. If you have heart or kidney disease, ask your provider how much you should drink. You may be asked to strain your pee to collect any stone pieces that you pass. Your provider may have these pieces tested. Do not take baths, swim, or use a hot tub until your provider approves. Ask your provider if you may take warm baths to soothe the burning. Keep all follow-up visits. If you have a stent, you will need to go back to your provider to have it removed. Your provider may give you more instructions. Make sure you know what you can and cannot do. Contact a health care provider if: You have pain or a burning feeling that lasts for more than 2 days. You feel nauseous. You vomit more and more often. You have trouble peeing. You have pain that gets worse or does not get better with medicine. You have a fever or shaking chills. Get help right away if: You cannot pee, even when your bladder feels full. You faint. You have chest pain, shortness of breath, or cough up blood. You have: ?Bright red blood or blood clots in your pee. ?Severe pain or discomfort. ?Pain in your abdomen. ?Swelling in your legs. These symptoms may be an emergency. Get help right away. Call 911. Do not wait to see if the symptoms will go away. Do not drive yourself to the hospital. This information is not intended to replace advice given to you by your health care provider. Make sure you discuss any questions you have with your health care provider. Document Revised: 12/03/2022 Document Reviewed: 12/03/2022 [employer] [place] Patient Education 2023 [employer]. 11/30/2024 09:57:05 Laser Therapy for Kidney Stones Laser Therapy for Kidney Stones Laser therapy for kidney stones is a procedure to break up rock-like masses that form inside the kidneys (kidney stones). It is done using a device that beams a strong light (laser) on the kidney stones. This breaks the stones up into small pieces. These small pieces may leave your body when you pee (urinate) or may be taken out during the procedure. You may need laser therapy if you have kidney stones that are painful or that are stopping you frombeing able to pee. Tell a health care provider about: Any allergies you have. All medicines you are taking, including vitamins, herbs, eye drops, creams, and yrkj-gvh-tpmmvyz medicines. Any problems you or family members have had with anesthesia. Any bleeding problems you have. Any surgeries you have had. Any medical conditions you have. Whether you are or may be . What are the risks? Your health care provider will talk with you about risks. These may include: Infection. Bleeding. Allergic reactions to medicines. Damage to: ?The part of your body that drains pee (urine) from the bladder (urethra). ?The bladder. ?The tube that connects the bladder to the kidneys (ureter). Urinary tract infection (UTI). Urethral stricture. This is when the urethra is narrowed by scarring. Trouble peeing. Blockage of the kidney. This may be caused by a piece of kidney stone. What happens before the procedure? When to stop eating and drinking Follow instructions from your provider about what you may eat and drink. These may include: 8 hours before the procedure ?Stop eating most foods. Do not eat meat, fried foods, or fatty foods. ?Eat only light foods, such as toast or crackers. ?All liquids are okay except energy drinks and alcohol. 6 hours before the procedure ?Stop eating. ?Drink only clear liquids, such as water, clear fruit juice, black coffee, plain tea, and sports drinks. ?Do not drink energy drinks or alcohol. 2 hours before the procedure ?Stop drinking all liquids. ?You may be allowed to take medicines with small sips of water. If you do not follow your provider's instructions, your procedure may be delayed or canceled. Medicines Ask your provider about: ?Changing or stopping your regular medicines. These include any diabetes medicines or blood thinners you take. ?Taking medicines such as aspirin and ibuprofen. These medicines can thin your blood. Do not take them unless your provider tells you to. ?Taking vocs-etw-laugafi medicines, vitamins, herbs, and supplements. Tests You may have a physical exam before the procedure. You may also have tests done. These may include: ?Imaging tests. ?Blood or pee tests. Surgery safety Ask your provider: ?How your surgery site will be marked. ?What steps will be taken to help prevent infection. These steps may include: ?Removing hair at the surgery site. ?Washing skin with a soap that kills germs. ?Taking antibiotics. General instructions Do not use any products that contain nicotine or tobacco for at least 4 weeks before the procedure.These products include cigarettes, chewing tobacco, and vaping devices, such as e-cigarettes. If you need help quitting, ask your provider. If you will be going home right after the procedure, plan to have a responsible adult: ?Take you home from the hospital or clinic. You will not be allowed to drive. ?Care for you for the time you are told. What happens during the procedure? An IV will be inserted into one of your veins. You will be given: ?A sedative. This helps you relax. ?Anesthesia. This keeps you from feeling pain. It will make you fall asleep for surgery. A tool with a camera on the end (ureteroscope) will be put into your urethra. It will be moved through your bladder to your kidney. It will send pictures to a screen in the operating room. This will show what parts of your kidney need to be treated. A tube will be put through the ureteroscope. It will be moved into your kidney. The laser device will be put into your kidney through the tube. The laser will be used to break up the kidney stones. A tool with a tiny wire basket may be put through the tube into your kidney. This can help remove the small pieces of the kidney stone. A small mesh tube (stent) may be placed to allow your kidney to drain. The tube and ureteroscope will be taken out at the end of the surgery. The procedure may vary among providers and hospitals. What happens after the procedure? Your blood pressure, heart rate, breathing rate, and blood oxygen level will be monitored until youleave the hospital or clinic. If you had a stent placed, it may have a string that will be secured to your skin. This helps your provider remove the stent. You may be given a strainer to collect any stone pieces that you pass in your pee. Your provider may have these tested. This information is not intended to replace advice given to you by your health care provider. Make sure you discuss any questions you have with your health care provider. Document Revised: 12/03/2022 Document Reviewed: 12/03/2022 [employer] [place] Patient Education 2023 [employer]. Follow Up Care 11/29/2024 12:39:00 With:MARLENY RODRIGUEZ, AGNES ARORA Address: When: Unknown [facility] 08-15-2025 NotePatient Education Nephrology Laser Therapy for Kidney Stones, Care After After laser therapy for kidney stones, it is common to have: ??? Pain. ??? A burning feeling when you pee (urinate). ??? Small amounts of blood in your pee (urine). ??? A need to pee a lot. ??? Parts of the kidney stone in your pee. ??? Mild discomfort in your back when you pee. You may have this if you had a small mesh tube (stent) placed during the procedure. Follow these instructions at home: Medicines ??? Take mhhv-qvx-htocopg and prescription medicines only as told by your health care provider. ??? If you were prescribed antibiotics, take them as told by your provider. Do not stop using the antibiotic even if you start to feel better. ??? Ask your provider if the medicine prescribed to you: ? Requires you to avoid driving or using machinery. ? Can cause constipation. You may need to take these actions to prevent or treat constipation: ? Drink enough fluid to keep your pee pale yellow. ? Take hlgv-oal-zomjmgz or prescription medicines. ? Eat foods that are high in fiber, such as beans, whole grains, and fresh fruits and vegetables. ? Limit foods that are high in fat and processed sugars, such as fried or sweet foods. Activity ??? If you were given a sedative during the procedure, it can affect you for several hours. Do not drive or operate machinery until your provider says that it is safe. ??? Return to your normal activities as told by your provider. Ask your provider what activities are safe for you. General instructions ??? Your provider may recommend that you drink a lot of water for a few hours after your procedure.If you have heart or kidney disease, ask your provider how much you should drink. ??? You may be asked to strain your pee to collect any stone pieces that you pass. Your provider may have these pieces tested. ??? Do not take baths, swim, or use a hot tub until your provider approves. Ask your provider if you may take warm baths to soothe the burning. ??? Keep all follow-up visits. If you have a stent, you will need to go back to your provider to have it removed. Your provider may give you more instructions. Make sure you know what you can and cannot do. Contact a health care provider if: ??? You have pain or a burning feeling that lasts for more than 2 days. ??? You feel nauseous. ??? You vomit more and more often. ??? You have trouble peeing. ??? You have pain that gets worse or does not get better with medicine. ??? You have a fever or shaking chills. Get help right away if: ??? You cannot pee, even when your bladder feels full. ??? You faint. ??? You have chest pain, shortness of breath, or cough up blood. ??? You have: ? Bright red blood or blood clots in your pee. ? Severe pain or discomfort. ? Pain in your abdomen. ? Swelling in your legs. These symptoms may be an emergency. Get help right away. Call 911. ??? Do not wait to see if the symptoms will go away. ??? Do not drive yourself to the hospital. This information is not intended to replace advice given to you by your health care provider. Make sure you discuss any questions you have with your health care provider. Document Revised: 12/03/2022 Document Reviewed: 12/03/2022 [employer] Patient Education ? 2023 [employer] [place] [employer] Laser Therapy for Kidney Stones Laser therapy for kidney stones is a procedure to break up rock-like masses that form inside the kidneys (kidney stones). It is done using a device that beams a strong light (laser) on the kidney stones. This breaks the stones up into small pieces. These small pieces may leave your body when you pee (urinate) or may be taken out during the procedure. You may need laser therapy if you have kidney stones that are painful or that are stopping you frombeing able to pee. Tell a health care provider about: ??? Any allergies you have. ??? All medicines you are taking, including vitamins, herbs, eye drops, creams, and qbbh-uge-tialvch medicines. ??? Any problems you or family members have had with anesthesia. ??? Any bleeding problems you have. ??? Any surgeries you have had. ??? Any medical conditions you have. ??? Whether you are or may be . What are the risks? Your health care provider will talk with you about risks. These may include: ??? Infection. ??? Bleeding. ??? Allergic reactions to medicines. ??? Damage to: ? The part of your body that drains pee (urine) from the bladder (urethra). ? The bladder. ? The tube that connects the bladder to the kidneys (ureter). ??? Urinary tract infection (UTI). ??? Urethral stricture. This is when the urethra is narrowed by scarring. ??? Trouble peeing. ??? Blockage of the kidney. This may be caused by a piece of kidney stone. What happens before the procedure? When to stop eating and drinking Follow instructions from your provider about what you may eat and drink. Thes (more content not included)...[facility]07-30-2025 Hospital Discharge instructions Patient Education 11/14/2024 06:40:21 Osteopenia Osteopenia Osteopenia is a loss of thickness (density) inside the bones. Another name for osteopenia is low bone mass. Mild osteopenia is a normal part of aging. It is not a disease, and it does not cause symptoms. However, if you have osteopenia and continue to lose bone mass, you could develop a condition that causes the bones to become thin and break more easily (osteoporosis). Osteoporosis can cause you to lose some height, have back pain, and have a stooped posture. Although osteopenia is not a disease, making changes to your lifestyle and diet can help to prevent osteopenia from developing into osteoporosis. What are the causes? Osteopenia is caused by loss of calcium in the bones. Bones are constantly changing. Old bone cellsare continually being replaced with new bone cells. This process builds new bone. The mineral calcium is needed to build new bone and maintain bone density. Bone density is usually highest around age 35. After that, most people's bodies cannot replace all the bone they have lost with new bone. What increases the risk? You are more likely to develop this condition if: You are older than age 50. You are a woman who went through menopause early. You have a long illness that keeps you in bed. You do not get enough exercise. You lack certain nutrients (malnutrition). You have an overactive thyroid gland (hyperthyroidism). You use products that contain nicotine or tobacco, such as cigarettes, e- cigarettes and chewing tobacco, or you drink a lot of alcohol. You are taking medicines that weaken the bones, such as steroids. What are the signs or symptoms? This condition does not cause any symptoms. You may have a slightly higher risk for bone breaks (fractures), so getting fractures more easily than normal may be an indication of osteopenia. How is this diagnosed? This condition may be diagnosed based on an X-ray exam that measures bone density (dual-energy X-ray absorptiometry, or DEXA). This test can measure bone density in your hips, spine, and wrists. Osteopenia has no symptoms, so this condition is usually diagnosed after a routine bone density screening test is done for osteoporosis. This routine screening is usually done for: Women who are age 65 or older. Men who are age 70 or older. If you have risk factors for osteopenia, you may have the screening test at an earlier age. How is this treated? Making dietary and lifestyle changes can lower your risk for osteoporosis. If you have severe osteopenia that is close to becoming osteoporosis, this condition can be treatedwith medicines and dietary supplements such as calcium and vitamin D. These supplements help to rebuild bone density. Follow these instructions at home: Eating and drinking Eat a diet that is high in calcium and vitamin D. Calcium is found in dairy products, beans, salmon, and leafy green vegetables like spinach and broccoli. Look for foods that have vitamin D and calcium added to them (fortified foods), such as orange juice, cereal, and bread. Lifestyle Do 30 minutes or more of a weight-bearing exercise every day, such as walking, jogging, or playing a sport. These types of exercises strengthen the bones. Do not use any products that contain nicotine or tobacco, such as cigarettes, e- cigarettes, and chewing tobacco. If you need help quitting, ask your health care provider. Do not drink alcohol if: ?Your health care provider tells you not to drink. ?You are , may be , or are planning to become . If you drink alcohol: ?Limit how much you use to: ?0 1 drink a day for women. ?0 2 drinks a day for men. ?Be aware of how much alcohol is in your drink. In the [place] one drink equals one 12 oz bottle of beer (355 mL), one 5 oz glass of wine (148 mL), or one 1 oz glass of hard liquor (44 mL). General instructions Take wauk-jty-apqfanv and prescription medicines only as told by your health care provider. These include vitamins and supplements. Take precautions at home to lower your risk of falling, such as: ?Keeping rooms well-lit and free of clutter, such as cords. ?Installing safety rails on stairs. ?Using rubber mats in the bathroom or other areas that are often wet or slippery. Keep all follow-up visits. This is important. Contact a health care provider if: You have not had a bone density screening for osteoporosis and you are: ?A woman who is age 65 or older. ?A man who is age 70 or older. You are a postmenopausal woman who has not had a bone density screening for osteoporosis. You are older than age 50 and you want to know if you should have bone density screening for osteoporosis. Summary Osteopenia is a loss of thickness (density) inside the bones. Another name for osteopenia is low bone mass. Osteopenia is not a disease, but it may increase your risk for a condition that causes the bones tobecome thin and break more easily (osteoporosis). You may be at risk for osteopenia if you are older than age 50 or if you are a woman who went through early menopause. Osteopenia does not cause any symptoms, but it can be diagnosed with a bone density screening test. Dietary and lifestyle changes are the first treatment for osteopenia. These may lower your risk forosteoporosis. This information is not intended to replace advice given to you by your health care provider. Make sure you discuss any questions you have with your health care provider. Document Revised: 09/18/2020 Document Reviewed: 09/18/2020 [employer] [place] Patient Education 2023 [employer]. 11/14/2024 06:40:19 Hypertension, Adult Hypertension, Adult High blood pressure (hypertension) is when the force of blood pumping through the arteries is too strong. The arteries are the blood vessels that carry blood from the heart throughout the body. Hypertension forces the heart to work harder to pump blood and may cause arteries to become narrow or stiff. Untreated or uncontrolled hypertension can lead to a heart attack, heart failure, a stroke, kidney disease, and other problems. A blood pressure reading consists of a higher number over a lower number. Ideally, your blood pressure should be below 120/80. The first ( top ) number is called the systolic pressure. It is a measure of the pressure in your arteries as your heart beats. The second ( bottom ) number is called the diastolic pressure. It is a measure of the pressure in your arteries as the heart relaxes. What are the causes? The exact cause of this condition is not known. There are some conditions that result in high bloodpressure. What increases the risk? Certain factors may make you more likely to develop high blood pressure. Some of these risk factorsare under your control, including: Smoking. Not getting enough exercise or physical activity. Being overweight. Having too much fat, sugar, calories, or salt (sodium) in your diet. Drinking too much alcohol. Other risk factors include: Having a personal history of heart disease, diabetes, high cholesterol, or kidney disease. Stress. Having a family history of high blood pressure and high cholesterol. Having obstructive sleep apnea. Age. The risk increases with age. What are the signs or symptoms? High blood pressure may not cause symptoms. Very high blood pressure (hypertensive crisis) may cause: Headache. Fast or irregular heartbeats (palpitations). Shortness of breath. Nosebleed. Nausea and vomiting. Vision changes. Severe chest pain, dizziness, and seizures. How is this diagnosed? This condition is diagnosed by measuring your blood pressure while you are seated, with your arm resting on a flat surface, your legs uncrossed, and your feet flat on the floor. The cuff of the bloodpressure monitor will be placed directly against the skin of your upper arm at the level of your heart. Blood pressure should be measured at least twice using the same arm. Certain conditions can cause a difference in blood pressure between your right and left arms. If you have a high blood pressure reading during one visit or you have normal blood pressure with other risk factors, you may be asked to: Return on a different day to have your blood pressure checked again. Monitor your blood pressure at home for 1 week or longer. If you are diagnosed with hypertension, you may have other blood or imaging tests to help your health care provider understand your overall risk for other conditions. How is this treated? This condition is treated by making healthy lifestyle changes, such as eating healthy foods, exercising more, and reducing your alcohol intake. You may be referred for counseling on a healthy diet and physical activity. Your health care provider may prescribe medicine if lifestyle changes are not enough to get your blood pressure under control and if: Your systolic blood pressure is above 130. Your diastolic blood pressure is above 80. Your personal target blood pressure may vary depending on your medical conditions, your age, and other factors. Follow these instructions at home: Eating and drinking Eat a diet that is high in fiber and potassium, and low in sodium, added sugar, and fat. An exampleof this eating plan is called the DASH diet. DASH stands for Dietary Approaches to Stop Hypertension. To eat this way: ?Eat plenty of fresh fruits and vegetables. Try to fill one half of your plate at each meal with fruits and vegetables. ?Eat whole grains, such as whole-wheat pasta, brown rice, or whole-grain bread. Fill about one fourth of your plate with whole grains. ?Eat or drink low-fat dairy products, such as skim milk or low-fat yogurt. ?Avoid fatty cuts of meat, processed or cured meats, and poultry with skin. Fill about one fourth of your plate with lean proteins, such as fish, chicken without skin, beans, eggs, or tofu. ?Avoid pre-made and processed foods. These tend to be higher in sodium, added sugar, and fat. Reduce your daily sodium intake. Many people with hypertension should eat less than 1,500 mg of sodium a day. Do not drink alcohol if: ?Your health care provider tells you not to drink. ?You are , may be , or are planning to become . If you drink alcohol: ?Limit how much you have to: ?0 1 drink a day for women. ?0 2 drinks a day for men. ?Know how much alcohol is in your drink. In the [place] one drink equals one 12 oz bottle of beer (355 mL), one 5 oz glass of wine (148 mL), or one 1 oz glass of hard liquor (44 mL). Lifestyle Work with your health care provider to maintain a healthy body weight or to lose weight. Ask what an ideal weight is for you. Get at least 30 minutes of exercise that causes your heart to beat faster (aerobic exercise) most days of the week. Activities may include walking, swimming, or biking. Include exercise to strengthen your muscles (resistance exercise), such as Pilates or lifting weights, as part of your weekly exercise routine. Try to do these types of exercises for 30 minutes at least 3 days a week. Do not use any products that contain nicotine or tobacco. These products include cigarettes, chewing tobacco, and vaping devices, such as e-cigarettes. If you need help quitting, ask your health careprovider. Monitor your blood pressure at home as told by your health care provider. Keep all follow-up visits. This is important. Medicines Take ydxf-iut-ifgxoco and prescription medicines only as told by your health care provider. Follow directions carefully. Blood pressure medicines must be taken as prescribed. Do not skip doses of blood pressure medicine. Doing this puts you at risk for problems and can makethe medicine less effective. Ask your health care provider about side effects or reactions to medicines that you should watch for. Contact a health care provider if you: Think you are having a reaction to a medicine you are taking. Have headaches that keep coming back (recurring). Feel dizzy. Have swelling in your ankles. Have trouble with your vision. Get help right away if you: Develop a severe headache or confusion. Have unusual weakness or numbness. Feel faint. Have severe pain in your chest or abdomen. Vomit repeatedly. Have trouble breathing. These symptoms may be an emergency. Get help right away. Call 911. Do not wait to see if the symptoms will go away. Do not drive yourself to the hospital. Summary Hypertension is when the force of blood pumping through your arteries is too strong. If this condition is not controlled, it may put you at risk for serious complications. Your personal target blood pressure may vary depending on your medical conditions, your age, and other factors. For most people, a normal blood pressure is less than 120/80. Hypertension is treated with lifestyle changes, medicines, or a combination of both. Lifestyle changes include losing weight, eating a healthy, low-sodium diet, exercising more, and limiting alcohol. This information is not intended to replace advice given to you by your health care provider. Make sure you discuss any questions you have with your health care provider. Document Revised: 02/09/2022 Document Reviewed: 02/09/2022 [employer] [place] Patient Education 2023 [employer]. 11/14/2024 06:40:18 High Cholesterol High Cholesterol High cholesterol is a condition in which the blood has high levels of a white, waxy substance similar to fat (cholesterol). The liver makes all the cholesterol that the body needs. The human body needs small amounts of cholesterol to help build cells. A person gets extra or excess cholesterol from the food that he or she eats. The blood carries cholesterol from the liver to the rest of the body. If you have high cholesterol,deposits (plaques) may build up on the chaudhari of your arteries. Arteries are the blood vessels that carry blood away from your heart. These plaques make the arteries narrow and stiff. Cholesterol plaques increase your risk for heart attack and stroke. Work with your health care provider to keep your cholesterol levels in a healthy range. What increases the risk? The following factors may make you more likely to develop this condition: Eating foods that are high in animal fat (saturated fat) or cholesterol. Being overweight. Not getting enough exercise. A family history of high cholesterol (familial hypercholesterolemia). Use of tobacco products. Having diabetes. What are the signs or symptoms? In most cases, high cholesterol does not usually cause any symptoms. In severe cases, very high cholesterol levels can cause: Fatty bumps under the skin (xanthomas). A white or berry ring around the black center (pupil) of the eye. How is this diagnosed? This condition may be diagnosed based on the results of a blood test. If you are older than 20 years of age, your health care provider may check your cholesterol levels every 4 6 years. You may be checked more often if you have high cholesterol or other risk factors for heart disease. The blood test for cholesterol measures: Bad cholesterol, or LDL cholesterol. This is the main type of cholesterol that causes heart disease. The desired level is less than 100 mg/dL (2.59 mmol/L). Good cholesterol, or HDL cholesterol. HDL helps protect against heart disease by cleaning the arteries and carrying the LDL to the liver for processing. The desired level for HDL is 60 mg/dL (1.55 mmol/L) or higher. Triglycerides. These are fats that your body can store or burn for energy. The desired level is less than 150 mg/dL (1.69 mmol/L). Total cholesterol. This measures the total amount of cholesterol in your blood and includes LDL, HDL, and triglycerides. The desired level is less than 200 mg/dL (5.17 mmol/L). How is this treated? Treatment for high cholesterol starts with lifestyle changes, such as diet and exercise. Diet changes. You may be asked to eat foods that have more fiber and less saturated fats or added sugar. Lifestyle changes. These may include regular exercise, maintaining a healthy weight, and quitting use of tobacco products. Medicines. These are given when diet and lifestyle changes have not worked. You may be prescribed astatin medicine to help lower your cholesterol levels. Follow these instructions at home: Eating and drinking Eat a healthy, balanced diet. This diet includes: ? Daily servings of a variety of fresh, frozen, or canned fruits and vegetables. ?Daily servings of whole grain foods that are rich in fiber. ?Foods that are low in saturated fats and trans fats. These include poultry and fish without skin, lean cuts of meat, and low-fat dairy products. ?A variety of fish, especially oily fish that contain omega-3 fatty acids. Aim to eat fish at least2 times a week. Avoid foods and drinks that have added sugar. Use healthy cooking methods, such as roasting, grilling, broiling, baking, poaching, steaming, and stir-frying. Do not muniz your food except for stir-frying. If you drink alcohol: ?Limit how much you have to: ?0 1 drink a day for women who are not . ?0 2 drinks a day for men. ?Know how much alcohol is in a drink. In the [place] one drink equals one 12 oz bottle of beer (355 mL), one 5 oz glass of wine (148 mL), or one 1 oz glass of hard liquor (44 mL). Lifestyle Get regular exercise. Aim to exercise for a total of 150 minutes a week. Increase your activity level by doing activities such as gardening, walking, and taking the stairs. Do not use any products that contain nicotine or tobacco. These products include cigarettes, chewing tobacco, and vaping devices, such as e-cigarettes. If you need help quitting, ask your health careprovider. General instructions Take hxng-gqs-gvcfnmj and prescription medicines only as told by your health care provider. Keep all follow-up visits. This is important. Where to find more information [employer]: www.heart.org National Heart, Lung, and Blood [place]: www.nhlbi.nih.gov Contact a health care provider if: You have trouble achieving or maintaining a healthy diet or weight. You are starting an exercise program. You are unable to stop smoking. Get help right away if: You have chest pain. You have trouble breathing. You have discomfort or pain in your jaw, neck, back, shoulder, or arm. You have any symptoms of a stroke. BE FAST is an easy way to remember the main warning signs of astroke: ?B - Balance. Signs are dizziness, sudden trouble walking, or loss of balance. ?E - Eyes. Signs are trouble seeing or a sudden change in vision. ?F - Face. Signs are sudden weakness or numbness of the face, or the face or eyelid drooping on oneside. ?A - Arms. Signs are weakness or numbness in an arm. This happens suddenly and usually on one side of the body. ?S - Speech. Signs are sudden trouble speaking, slurred speech, or trouble understanding what people say. ?T - Time. Time to call emergency services. Write down what time symptoms started. You have other signs of a stroke, such as: ?A sudden, severe headache with no known cause. ?Nausea or vomiting. ?Seizure. These symptoms may represent a serious problem that is an emergency. Do not wait to see if the symptoms will go away. Get medical help right away. Call your local emergency services (911 in the [place] Do not drive yourself to the hospital. Summary Cholesterol plaques increase your risk for heart attack and stroke. Work with your health care provider to keep your cholesterol levels in a healthy range. Eat a healthy, balanced diet, get regular exercise, and maintain a healthy weight. Do not use any products that contain nicotine or tobacco. These products include cigarettes, chewing tobacco, and vaping devices, such as e-cigarettes. Get help right away if you have any symptoms of a stroke. This information is not intended to replace advice given to you by your health care provider. Make sure you discuss any questions you have with your health care provider. Document Revised: 11/05/2022 Document Reviewed: 06/08/2021 [employer] [place] Patient Education 2023 [employer]. 11/14/2024 06:40:17 Atrial Fibrillation Atrial Fibrillation Atrial fibrillation (AFib) is a type of irregular or rapid heartbeat (arrhythmia). In AFib, the toppart of the heart (atria) beats in an irregular pattern. This makes the heart unable to pump blood normally and effectively. The goal of treatment is to prevent blood clots from forming, control your heart rate, or restore your heartbeat to a normal rhythm. If this condition is not treated, it can cause serious problems, such as a weakened heart muscle (cardiomyopathy) or a stroke. What are the causes? This condition is often caused by medical conditions that damage the heart's electrical system. These include: High blood pressure (hypertension). This is the most common cause. Certain heart problems or conditions, such as heart failure, coronary artery disease, heart valve problems, or heart surgery. Diabetes. Overactive thyroid (hyperthyroidism). Chronic kidney disease. Certain lung conditions, such as emphysema, pneumonia, or COPD. Obstructive sleep apnea. In some cases, the cause of this condition is not known. What increases the risk? This condition is more likely to develop in: Older adults. Athletes who do endurance exercise. People who have a family history of AFib. Males. People who are . People who are obese. People who smoke or misuse alcohol. What are the signs or symptoms? Symptoms of this condition include: Fast or irregular heartbeats (palpitations). Discomfort or pain in your chest. Shortness of breath. Sudden light-headedness or weakness. Tiring easily during exercise or activity. Syncope (fainting). Sweating. In some cases, there are no symptoms. How is this diagnosed? Your health care provider may detect AFib when taking your pulse. If detected, this condition may be diagnosed with: An electrocardiogram (ECG) to check electrical signals of the heart. An ambulatory teletypesetter monitor to record your heart's activity for a few days. A transthoracic echocardiogram (TTE) to create pictures of your heart. A transesophageal echocardiogram (MARYCRUZ) to create even clearer pictures of your heart. A stress test to check your blood supply while you exercise. Imaging tests, such as a CT scan or chest X-ray. Blood tests. How is this treated? Treatment depends on underlying conditions and how you feel when you get AFib. This condition may be treated with: Medicines to prevent blood clots or to treat heart rate or heart rhythm problems. Electrical cardioversion to reset the heart's rhythm. A pacemaker to correct abnormal heart rhythm. Ablation to remove the heart tissue that sends abnormal signals. Left atrial appendage closure to seal the area where blood clots can form. In some cases, underlying conditions will be treated. Follow these instructions at home: Medicines Take over-the counter and prescription medicines only as told by your provider. Do not take any new medicines without talking to your provider. If you are taking blood thinners: ?Talk with your provider before taking aspirin or NSAIDs. These medicines can raise your risk of bleeding. ?Take your medicines as told. Take them at the same time each day. ?Do not do things that could hurt or bruise you. Be careful to avoid falls. ?Wear an alert bracelet or carry a card that says that you take blood thinners. Lifestyle Do not use any products that contain nicotine or tobacco. These products include cigarettes, chewing tobacco, and vaping devices, such as e-cigarettes. If you need help quitting, ask your provider. Eat heart-healthy foods. Talk with a food expert (dietitian) to make an eating plan that is right for you. Exercise regularly as told by your provider. Do not drink alcohol. Lose weight if you are overweight. General instructions If you have obstructive sleep apnea, manage your condition as told by your provider. Do not use diet pills unless your provider approves. Diet pills can make heart problems worse. Keep all follow-up visits. Your provider will want to check your heart rate and rhythm regularly. Contact a health care provider if: You notice a change in the rate, rhythm, or strength of your heartbeat. You are taking a blood thinner and you notice more bruising. You tire more easily when you exercise or do heavy work. You have a sudden change in weight. Get help right away if: You have chest pain. You have trouble breathing. You have side effects of blood thinners, such as blood in your vomit, poop (stool), or pee (urine),or bleeding that does not stop. You have any symptoms of a stroke. BE FAST is an easy way to remember the main warning signs of astroke: ?B - Balance. Signs are dizziness, sudden trouble walking, or loss of balance. ?E - Eyes. Signs are trouble seeing or a sudden change in vision. ?F - Face. Signs are sudden weakness or numbness of the face, or the face or eyelid drooping on oneside. ?A - Arms. Signs are weakness or numbness in an arm. This happens suddenly and usually on one side of the body. ?S - Speech.Signs are sudden trouble speaking, slurred speech, or trouble understanding what peoplesay. ?T - Time. Time to call emergency services. Write down what time symptoms started. Other signs of a stroke, such as: ?A sudden, severe headache with no known cause. ?Nausea or vomiting. ?Seizure. These symptoms may be an emergency. Get help right away. Call 911. Do not wait to see if the symptoms will go away. Do not drive yourself to the hospital. This information is not intended to replace advice given to you by your health care provider. Make sure you discuss any questions you have with your health care provider. Document Revised: 12/22/2022 Document Reviewed: 12/22/2022 [employer] [place] Patient Education 2023 [employer]. Follow Up Care 07/10/2024 11:31:32 With:Viral PARKER, GENERAL [employer]ENT[employer]ACQUET MAKER, Stacia Mcmahan Address: [address] [place] [id number] When:Within 4 Month(s) Comments:chronic care [facility] 07-30-2025 NotePatient Education Cardiovascular Hypertension, Adult High blood pressure (hypertension) is when the force of blood pumping through the arteries is too strong. The arteries are the blood vessels that carry blood from the heart throughout the body. Hypertension forces the heart to work harder to pump blood and may cause arteries to become narrow or stiff. Untreated or uncontrolled hypertension can lead to a heart attack, heart failure, a stroke, kidney disease, and other problems. A blood pressure reading consists of a higher number over a lower number. Ideally, your blood pressure should be below 120/80. The first ( top ) number is called the systolic pressure. It is a measure of the pressure in your arteries as your heart beats. The second ( bottom ) number is called the diastolic pressure. It is a measure of the pressure in your arteries as the heart relaxes. What are the causes? The exact cause of this condition is not known. There are some conditions that result in high bloodpressure. What increases the risk? Certain factors may make you more likely to develop high blood pressure. Some of these risk factorsare under your control, including: ??? Smoking. ??? Not getting enough exercise or physical activity. ??? Being overweight. ??? Having too much fat, sugar, calories, or salt (sodium) in your diet. ??? Drinking too much alcohol. Other risk factors include: ??? Having a personal history of heart disease, diabetes, high cholesterol, or kidney disease. ??? Stress. ??? Having a family history of high blood pressure and high cholesterol. ??? Having obstructive sleep apnea. ??? Age. The risk increases with age. What are the signs or symptoms? High blood pressure may not cause symptoms. Very high blood pressure (hypertensive crisis) may cause: ??? Headache. ??? Fast or irregular heartbeats (palpitations). ??? Shortness of breath. ??? Nosebleed. ??? Nausea and vomiting. ??? Vision changes. ??? Severe chest pain, dizziness, and seizures. How is this diagnosed? This condition is diagnosed by measuring your blood pressure while you are seated, with your arm resting on a flat surface, your legs uncrossed, and your feet flat on the floor. The cuff of the bloodpressure monitor will be placed directly against the skin of your upper arm at the level of your heart. Blood pressure should be measured at least twice using the same arm. Certain conditions can cause a difference in blood pressure between your right and left arms. If you have a high blood pressure reading during one visit or you have normal blood pressure with other risk factors, you may be asked to: ??? Return on a different day to have your blood pressure checked again. ??? Monitor your blood pressure at home for 1 week or longer. If you are diagnosed with hypertension, you may have other blood or imaging tests to help your health care provider understand your overall risk for other conditions. How is this treated? This condition is treated by making healthy lifestyle changes, such as eating healthy foods, exercising more, and reducing your alcohol intake. You may be referred for counseling on a healthy diet and physical activity. Your health care provider may prescribe medicine if lifestyle changes are not enough to get your blood pressure under control and if: ??? Your systolic blood pressure is above 130. ??? Your diastolic blood pressure is above 80. Your personal target blood pressure may vary depending on your medical conditions, your age, and other factors. Follow these instructions at home: Eating and drinking ??? Eat a diet that is high in fiber and potassium, and low in sodium, added sugar, and fat. An example of this eating plan is called the DASH diet. DASH stands for Dietary Approaches to Stop Hypertension. To eat this way: ? Eat plenty of fresh fruits and vegetables. Try to fill one half of your plate at each meal with fruits and vegetables. ? Eat whole grains, such as whole-wheat pasta, brown rice, or whole-grain bread. Fill about one fourth of your plate with whole grains. ? Eat or drink low-fat dairy products, such as skim milk or low-fat yogurt. ? Avoid fatty cuts of meat, processed or cured meats, and poultry with skin. Fill about one fourth of your plate with lean proteins, such as fish, chicken without skin, beans, eggs, or tofu. ? Avoid pre-made and processed foods. These tend to be higher in sodium, added sugar, and fat. ??? Reduce your daily sodium intake. Many people with hypertension should eat less than 1,500 mg ofsodium a day. ??? Do not drink alcohol if: ? Your health care provider tells you not to drink. ? You are , may be , or are planning to become . ??? If you drink alcohol: ? Limit how much you have to: ? 0?1 drink a day for women. ? 0?2 drinks a day for men. ? Know how much alcohol is in your drink. In the [place] one drink equals one 12 oz bottle (more content not included)...[facility]07-29-2025 Hospital Discharge instructions Patient Education 11/13/2024 14:18:24 Hematuria, Adult Hematuria, Adult Hematuria is blood in the urine. Blood may be visible in the urine, or it may be identified with a test. This condition can be caused by infections of the bladder, urethra, kidney, or prostate. Otherpossible causes include: Kidney stones. Cancer of the urinary tract. Too much calcium in the urine. Conditions that are passed from parent to child (inherited conditions). Exercise that requires a lot of energy. Infections can usually be treated with medicine, and a kidney stone usually will pass through your urine. If neither of these is the cause of your hematuria, more tests may be needed to identify the cause of your symptoms. It is very important to tell your health care provider about any blood in your urine, even if it ispainless or the blood stops without treatment. Blood in the urine, when it happens and then stops and then happens again, can be a symptom of a very serious condition, including cancer. There is no pain in the initial stages of many urinary cancers. Follow these instructions at home: Medicines Take zdvw-wki-dozuqsj and prescription medicines only as told by your health care provider. If you were prescribed an antibiotic medicine, take it as told by your health care provider. Do notstop taking the antibiotic even if you start to feel better. Eating and drinking Drink enough fluid to keep your urine pale yellow. It is recommended that you drink 3 4 quarts (2.83.8 L) a day. If you have been diagnosed with an infection, drinking cranberry juice in addition tolarge amounts of water is recommended. Avoid caffeine, tea, and carbonated beverages. These tend to irritate the bladder. Avoid alcohol because it may irritate the prostate (in males). General instructions If you have been diagnosed with a kidney stone, follow your health care provider's instructions about straining your urine to catch the stone. Empty your bladder often. Avoid holding urine for long periods of time. If you are female: ?After a bowel movement, wipe from front to back and use each piece of toilet paper only once. ?Empty your bladder before and after sex. Pay attention to any changes in your symptoms. Tell your health care provider about any changes or any new symptoms. It is up to you to get the results of any tests. Ask your health care provider, or the department that is doing the test, when your results will be ready. Keep all follow-up visits. This is important. Contact a health care provider if: You develop back pain. You have a fever or chills. You have nausea or vomiting. Your symptoms do not improve after 3 days. Your symptoms get worse. Get help right away if: You develop severe vomiting and are unable to take medicine without vomiting. You develop severe pain in your back or abdomen even though you are taking medicine. You pass a large amount of blood in your urine. You pass blood clots in your urine. You feel very weak or like you might faint. You faint. Summary Hematuria is blood in the urine. It has many possible causes. It is very important that you tell your health care provider about any blood in your urine, even ifit is painless or the blood stops without treatment. Take njsk-jcd-afudcca and prescription medicines only as told by your health care provider. Drink enough fluid to keep your urine pale yellow. This information is not intended to replace advice given to you by your health care provider. Make sure you discuss any questions you have with your health care provider. Document Revised: 12/03/2020 Document Reviewed: 12/03/2020 [employer] [place] Patient Education 2023 [employer]. Follow Up Care 11/09/2024 14:13:31 With:MARLENY RODRIGUEZ, MAITE, URL Address: When: Unknown Comments:cystoscopy [facility] 07-29-2025 NotePatient Education Urology Hematuria, Adult Hematuria is blood in the urine. Blood may be visible in the urine, or it may be identified with a test. This condition can be caused by infections of the bladder, urethra, kidney, or prostate. Otherpossible causes include: ??? Kidney stones. ??? Cancer of the urinary tract. ??? Too much calcium in the urine. ??? Conditions that are passed from parent to child (inherited conditions). ??? Exercise that requires a lot of energy. Infections can usually be treated with medicine, and a kidney stone usually will pass through your urine. If neither of these is the cause of your hematuria, more tests may be needed to identify the cause of your symptoms. It is very important to tell your health care provider about any blood in your urine, even if it ispainless or the blood stops without treatment. Blood in the urine, when it happens and then stops and then happens again, can be a symptom of a very serious condition, including cancer. There is no pain in the initial stages of many urinary cancers. Follow these instructions at home: Medicines ??? Take qsfq-qqs-letdyqq and prescription medicines only as told by your health care provider. ??? If you were prescribed an antibiotic medicine, take it as told by your health care provider. Donot stop taking the antibiotic even if you start to feel better. Eating and drinking ??? Drink enough fluid to keep your urine pale yellow. It is recommended that you drink 3?4 quarts (2.8?3.8 L) a day. If you have been diagnosed with an infection, drinking cranberry juice in addition to large amounts of water is recommended. ??? Avoid caffeine, tea, and carbonated beverages. These tend to irritate the bladder. ??? Avoid alcohol because it may irritate the prostate (in males). General instructions ??? If you have been diagnosed with a kidney stone, follow your health care provider's instructionsabout straining your urine to catch the stone. ??? Empty your bladder often. Avoid holding urine for long periods of time. ??? If you are female: ? After a bowel movement, wipe from front to back and use each piece of toilet paper only once. ? Empty your bladder before and after sex. ??? Pay attention to any changes in your symptoms. Tell your health care provider about any changesor any new symptoms. ??? It is up to you to get the results of any tests. Ask your health care provider, or the department that is doing the test, when your results will be ready. ??? Keep all follow-up visits. This is important. Contact a health care provider if: ??? You develop back pain. ??? You have a fever or chills. ??? You have nausea or vomiting. ??? Your symptoms do not improve after 3 days. ??? Your symptoms get worse. Get help right away if: ??? You develop severe vomiting and are unable to take medicine without vomiting. ??? You develop severe pain in your back or abdomen even though you are taking medicine. ??? You pass a large amount of blood in your urine. ??? You pass blood clots in your urine. ??? You feel very weak or like you might faint. ??? You faint. Summary ??? Hematuria is blood in the urine. It has many possible causes. ??? It is very important that you tell your health care provider about any blood in your urine, even if it is painless or the blood stops without treatment. ??? Take flpn-hnx-eecygpi and prescription medicines only as told by your health care provider. ??? Drink enough fluid to keep your urine pale yellow. This information is not intended to replace advice given to you by your health care provider. Make sure you discuss any questions you have with your health care provider. Document Revised: 12/03/2020 Document Reviewed: 12/03/2020 [employer] [place] Patient Education ? 2023 [employer].[facility] 11-07-2024 Hospital Discharge instructions Patient Education 11/07/2024 13:05:41 Urinary Tract Infection, Adult Urinary Tract Infection, Adult A urinary tract infection (UTI) is an infection of any part of the urinary tract. The urinary tractincludes the kidneys, ureters, bladder, and urethra. These organs make, store, and get rid of urinein the body. An upper UTI affects the ureters and kidneys. A lower UTI affects the bladder and urethra. What are the causes? Most urinary tract infections are caused by bacteria in your genital area around your urethra, where urine leaves your body. These bacteria grow and cause inflammation of your urinary tract. What increases the risk? You are more likely to develop this condition if: You have a urinary catheter that stays in place. You are not able to control when you urinate or have a bowel movement (incontinence). You are female and you: ?Use a spermicide or diaphragm for control. ?Have low estrogen levels. ?Are . You have certain genes that increase your risk. You are sexually active. You take antibiotic medicines. You have a condition that causes your flow of urine to slow down, such as: ?An enlarged prostate, if you are male. ?Blockage in your urethra. ?A kidney stone. ?A nerve condition that affects your bladder control (neurogenic bladder). ?Not getting enough to drink, or not urinating often. You have certain medical conditions, such as: ?Diabetes. ?A weak disease-fighting system (immunesystem). ?Sickle cell disease. ?Gout. ?Spinal cord injury. What are the signs or symptoms? Symptoms of this condition include: Needing to urinate right away (urgency). Frequent urination. This may include small amounts of urine each time you urinate. Pain or burning with urination. Blood in the urine. Urine that smells bad or unusual. Trouble urinating. Cloudy urine. Vaginal discharge, if you are female. Pain in the abdomen or the lower back. You may also have: Vomiting or a decreased appetite. Confusion. Irritability or tiredness. A fever or chills. Diarrhea. The first symptom in older adults may be confusion. In some cases, they may not have any symptoms until the infection has worsened. How is this diagnosed? This condition is diagnosed based on your medical history and a physical exam. You may also have other tests, including: Urine tests. Blood tests. Tests for STIs (sexually transmitted infections). If you have had more than one UTI, a cystoscopy or imaging studies may be done to determine the cause of the infections. How is this treated? Treatment for this condition includes: Antibiotic medicine. Fiwc-ert-qvuoquc medicines to treat discomfort. Drinking enough water to stay hydrated. If you have frequent infections or have other conditions such as a kidney stone, you may need to see a health care provider who specializes in the urinary tract (urologist). In rare cases, urinary tract infections can cause sepsis. Sepsis is a life- threatening condition that occurs when the body responds to an infection. Sepsis is treated in the hospital with IV antibiotics, fluids, and other medicines. Follow these instructions at home: Medicines Take ewoi-xpt-fueosmo and prescription medicines only as told by your health care provider. If you were prescribed an antibiotic medicine, take it as told by your health care provider. Do notstop using the antibiotic even if you start to feel better. General instructions Make sure you: ?Empty your bladder often and completely. Do not hold urine for long periods of time. ?Empty your bladder after sex. ?Wipe from front to back after urinating or having a bowel movement if you are female. Use each tissue only one time when you wipe. Drink enough fluid to keep your urine pale yellow. Keep all follow-up visits. This is important. Contact a health care provider if: Your symptoms do not get better after 1 2 days. Your symptoms go away and then return. Get help right away if: You have severe pain in your back or your lower abdomen. You have a fever or chills. You have nausea or vomiting. Summary A urinary tract infection (UTI) is an infection of any part of the urinary tract, which includes the kidneys, ureters, bladder, and urethra. Most urinary tract infections are caused by bacteria in your genital area. Treatment for this condition often includes antibiotic medicines. If you were prescribed an antibiotic medicine, take it as told by your health care provider. Do notstop using the antibiotic even if you start to feel better. Keep all follow-up visits. This is important. This information is not intended to replace advice given to you by your health care provider. Make sure you discuss any questions you have with your health care provider. Document Revised: 11/09/2020 Document Reviewed: 11/14/2020 [employer] [place] Patient Education 2023 [employer]. Follow Up Care 11/06/2024 12:22:32 With:Viral PARKER, GENERAL PURCHASING AGENT-ALBINO, Stacia Mcmahan Address: [address] [place] [id number] When:1 to 2 weeks only if needed [facility]unde 07-23-2025 NotePatient Education Obstetrics and Gynecology Urinary Tract Infection, Adult A urinary tract infection (UTI) is an infection of any part of the urinary tract. The urinary tractincludes the kidneys, ureters, bladder, and urethra. These organs make, store, and get rid of urinein the body. An upper UTI affects the ureters and kidneys. A lower UTI affects the bladder and urethra. What are the causes? Most urinary tract infections are caused by bacteria in your genital area around your urethra, where urine leaves your body. These bacteria grow and cause inflammation of your urinary tract. What increases the risk? You are more likely to develop this condition if: ??? You have a urinary catheter that stays in place. ??? You are not able to control when you urinate or have a bowel movement (incontinence). ??? You are female and you: ? Use a spermicide or diaphragm for control. ? Have low estrogen levels. ? Are . ??? You have certain genes that increase your risk. ??? You are sexually active. ??? You take antibiotic medicines. ??? You have a condition that causes your flow of urine to slow down, such as: ? An enlarged prostate, if you are male. ? Blockage in your urethra. ? A kidney stone. ? A nerve condition that affects your bladder control (neurogenic bladder). ? Not getting enough to drink, or not urinating often. ??? You have certain medical conditions, such as: ? Diabetes. ? A weak disease-fighting system (immunesystem). ? Sickle cell disease. ? Gout. ? Spinal cord injury. What are the signs or symptoms? Symptoms of this condition include: ??? Needing to urinate right away (urgency). ??? Frequent urination. This may include small amounts of urine each time you urinate. ??? Pain or burning with urination. ??? Blood in the urine. ??? Urine that smells bad or unusual. ??? Trouble urinating. ??? Cloudy urine. ??? Vaginal discharge, if you are female. ??? Pain in the abdomen or the lower back. You may also have: ??? Vomiting or a decreased appetite. ??? Confusion. ??? Irritability or tiredness. ??? A fever or chills. ??? Diarrhea. The first symptom in older adults may be confusion. In some cases, they may not have any symptoms until the infection has worsened. How is this diagnosed? This condition is diagnosed based on your medical history and a physical exam. You may also have other tests, including: ??? Urine tests. ??? Blood tests. ??? Tests for STIs (sexually transmitted infections). If you have had more than one UTI, a cystoscopy or imaging studies may be done to determine the cause of the infections. How is this treated? Treatment for this condition includes: ??? Antibiotic medicine. ??? Wnhd-drk-kbchmes medicines to treat discomfort. ??? Drinking enough water to stay hydrated. If you have frequent infections or have other conditions such as a kidney stone, you may need to see a health care provider who specializes in the urinary tract (urologist). In rare cases, urinary tract infections can cause sepsis. Sepsis is a life- threatening condition that occurs when the body responds to an infection. Sepsis is treated in the hospital with IV antibiotics, fluids, and other medicines. Follow these instructions at home: Medicines ??? Take npoo-rms-xsvvkdl and prescription medicines only as told by your health care provider. ??? If you were prescribed an antibiotic medicine, take it as told by your health care provider. Donot stop using the antibiotic even if you start to feel better. General instructions ??? Make sure you: ? Empty your bladder often and completely. Do not hold urine for long periods of time. ? Empty your bladder after sex. ? Wipe from front to back after urinating or having a bowel movement if you are female. Use each tissue only one time when you wipe. ??? Drink enough fluid to keep your urine pale yellow. ??? Keep all follow-up visits. This is important. Contact a health care provider if: ??? Your symptoms do not get better after 1?2 days. ??? Your symptoms go away and then return. Get help right away if: ??? You have severe pain in your back or your lower abdomen. ??? You have a fever or chills. ??? You have nausea or vomiting. Summary ??? A urinary tract infection (UTI) is an infection of any part of the urinary tract, which includes the kidneys, ureters, bladder, and urethra. ??? Most urinary tract infections are caused by bacteria in your genital area. ??? Treatment for this condition often includes antibiotic medicines. ??? If you were prescribed an antibiotic medicine, take it as told by your health care provider. Donot stop using the antibiotic even if you start to feel better. ??? Keep all follow-up visits. This is important. This information is not intended to replace advice given to you by your health care provider. Make sure you di (more content not included)...[facility]07-15-2025 NotePatient: Jacky Gonzalez Age: 69 years Sex: Female : 1955 Associated Diagnoses: None Author: Meaghan RODRIGUEZ, Thai Wilburn Pre-Procedure Current history and physical: No qualifying data available . Post-Procedure Complications encountered during the procedure were none. Estimated blood loss during the procedurewas 1 milliliters. Specimens were sent to pathology. Impression and Plan Indication for colonoscopy is colon cancer surveillance in a patient with history of sigmoid colon cancer status post left hemicolectomy and adjuvant chemotherapy. Exam completed till cecum and terminal ileum with a pediatric colonoscope. Excellent bowel prep. [place] bowel prep score 9 [right colon=3, transverse colon=3, left colon=3]. PHYLICIA showed intact anal sphincter tone. No palpable mass lesions, stricture or stenosis. TI mucosa was normal. Examined mucosa of the right and left colon segments with the following findings: Subepithelial polypoid lesion, subcentimeter size seen in cecum. Overall appearance likely consistent with a lipoma?status post biopsies for histology. Small hemorrhoids seen on retroflexion. No large intraluminal obstructive mass lesion or intraluminal polypoid lesions seen in examined areas of right and left colon segments. Patient tolerated the procedure well without any complications. Recommendations: Await biopsy results. Okay to restart home medications including blood thinner from today?defer further management to theprescribing physician. If path results are negative for any concerning finding, recommend repeating colonoscopy in 5 years?sooner if clinically indicated. Follow-up with referring provider. Electronically signed by Thai Harding MD 10/30/24 14:30 EDT Electronically signed by Thai Harding MD 10/30/2024 14:34 EDTBSelect [facility] NoteClinical Information Procedure: Colonoscopy Pre-operative diagnosis: Screening SP Specimen A Cecal lesion biopsy Gross Description Received in formalin labeled 'cecal lesion biopsy' are three pieces of light sheikh tissue measuring 0.2 to 0.3 cm in greatest dimension. The specimen is entirely submitted in cassette A1. Microscopic Description Tissue sections show fragments of colonic mucosa with surface epithelium showing increased intraepithelial lymphocytes. A CD3 immunostain shows the number of lymphocytes are adequate for intraepithelial lymphocytosis. The lamina propria is expanded by chronic inflammation with scattered eosinophils. All positive and negative controls show appropriate reactivity. One fragment shows a single crypt with crypt abscess. No thickness in collagen plate identified. No granulomatous inflammation is identified. No dysplasia or malignancy is identified. No submucosa to evaluate. 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 No dysplasia or malignancy identified. [id number] Gonzalez Gay MD (Electronically signed by) Verified: 11/05/24 13:20[facility] Medical CenterComment on above:Performed By: #### SPR #### [facility] (DEFAULT) [address] [place], [place] [phone] NoteDate of Procedure 10/25/2024. Quality Right Eye Good. Left Eye Good.[id number] NoteDate of Procedure 10/25/2024. [facility] Worker Information Telecom Manager: MARIYA. OCT Macula Interpretation Right Eye Normal without fluid. Findings include Epiretinal membrane. Left Eye Normal without fluid. Findings include Epiretinal membrane, IS/OS junction, RPE Irregularity. Interval Change Right Eye Stable. Left Eye Stable.[id number] NoteHNO ID: [id number] Author: MILTON ISAACS MD Service: ? Author Type: Physician Type: Progress Notes Filed: 10/25/2024 15:42 Note Text: Last saw Dr. 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 Patricia. Last seen her in 2018 Course: - Started with pain, blurriness and floaters around 2008 - Treated with oral steroids which improved her inflammation - Tried MTX but did not help - Has been on Cellcept from around [id number]. Discontinued as she did not have flare ups and couldn't get to be seen at [facility] due to insurance issues. - Did not have any flare ups since 2018 - Most recent flare up was in late 10/2022 - seen by Angela 11/2022 with exudative lesion Right eye - started on po prednisone, resolved now off prednisone - 07/2023: had corneal edema concerning for corneal transplant rejection - 04/27/24 - follows Dr. Bloom on pred every day. Workup: - Labs 11/2022: elevated WBC 15.9k and abs neutrophil count (while on oral prednisone); MAGNO, TB, syphilis, HLA-A29 negative; unremarkable complete metabolic panel (CMP) (sl elevated BUN) Imagin11/17/2022 - OCT: OD with SRF temporal to the macula. Mild ERM. OS: Flat but with subretinal ?granuloma/scar with intraretinal pigment - FA: OD: Optic disc leakage with Staining/leakage of superotemporal retinal lesion and surrounding pooling. OS: No apparent leakage. Macular staining. - Bscan: Thickened choroid. No mass. Overlying RD. 03/17/23 - FAF 08/18/23: increase in hyperAF sup-temp right eye; macular hypoAF left eye OCT: stable; normal OD, dry pigment epithelial detachment left eye (stable) OCT 10/25/24 - flat Both Eyes Meds: *Completed prednisone taper 12/2022 - History of Cellcept, MTX Impression/PLAN: - DDx: sarcoid/syphilis/TB, sympathetic ophthalmia, Jaquelin's, Birdshot; lymphoma also should be considered given the age group. - Has history of colon cancer, but cancer free now and off chemo since 2019 - ok to observe for now - consider local vs cellcept in future - precert ozurdex for short term control 6 months Adry, 1 year with me 2. 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 Keratoconus Both eyes - s/p corneal transplant (ALK) left eye x 30 yrs ago - Follows Dr. Bloom last saw 04/2024 4. Pseudophakia, Both Eyes - s/p CE/PCIOL with Dr. Bloom - s/p Cataract extraction 05/05/20 Right eye 5. Epiretinal membrane Left eye - Not visually significant 6. History of colon cancer - Dx'ed in 2018 - Finished chemotherapy in 2019 - s/p partial colectomy - Now cancer free [facility] of Present illness Narrative* Milton Isaacs MD - 10/25/2024 3:03 PM EDT Last saw Dr. 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 Patricia. Last seen her in 2018 Course: - Started with pain, blurriness and floaters around 2008 - Treated with oral steroids which improved her inflammation - Tried MTX but did not help - Has been on Cellcept from around [id number]. Discontinued as she did not have flare ups and couldn't get to be seen at [facility] due to insurance issues. - Did not have any flare ups since 2018 - Most recent flare up was in late 10/2022 - seen by Angela 11/2022 with exudative lesion Right eye - started on po prednisone, resolved now off prednisone - 07/2023: had corneal edema concerning for corneal transplant rejection - 04/27/24 - follows Dr. Bloom on pred every day. Workup: - Labs 11/2022: elevated WBC 15.9k and abs neutrophil count (while on oral prednisone); MAGNO, TB, syphilis, HLA-A29 negative; unremarkable complete metabolic panel (CMP) (sl elevated BUN) Imagin11/17/2022 - OCT: OD with SRF temporal to the macula. Mild ERM. OS: Flat but with subretinal ?granuloma/scar with intraretinal pigment - FA: OD: Optic disc leakage with Staining/leakage of superotemporal retinal lesion and surroundingpooling. OS: No apparent leakage. Macular staining. - Bscan: Thickened choroid. No mass. Overlying RD. 03/17/23 - FAF 08/18/23: increase in hyperAF sup-temp right eye; macular hypoAF left eye OCT: stable; normal OD, dry pigment epithelial detachment left eye (stable) OCT 10/25/24 - flat Both Eyes Meds: *Completed prednisone taper 12/2022 - History of Cellcept, MTX Impression/PLAN: - DDx: sarcoid/syphilis/TB, sympathetic ophthalmia, Jaquelin's, Birdshot; lymphoma also should be considered given the age group. - Has history of colon cancer, but cancer free now and off chemo since 2019 - ok to observe for now - consider local vs cellcept in future - precert ozurdex for short term control 6 months [place], 1 year with me 2. 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 Keratoconus Both eyes - s/p corneal transplant (ALK) left eye x 30 yrs ago - Follows Dr. Bloom last saw 04/2024 4. Pseudophakia, Both Eyes - s/p CE/PCIOL with Dr. Bloom - s/p Cataract extraction 05/05/20 Right eye 5. Epiretinal membrane Left eye - Not visually significant 6. History of colon cancer - Dx'ed in 2018 - Finished chemotherapy in 2019 - s/p partial colectomy - Now cancer free - colonoscopy upcoming [facility] History of Present illness Narrative* Echo Ascencio - 10/03/2024 10:30 AM EDT Explained policies and procedures of an echocardiogram/doppler study. documented in this encounterCar[facility]05[facility] History of Present illness Narrative* Sheron White - 09/13/2024 11:00 AM EDT Follow up visit. Engaged in conversation readily. 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 Back for more iron. Struggling to trust and to accept. Active listening offered. Prayers said with her. See Flowsheet. Continue to visit and to support. Sister Sheron Christopher, OSF/T BCC documented in this encounterCar[facility]03-23-2025 NotePatient Education Cardiovascular Atrial Fibrillation Atrial fibrillation (AFib) is a type of irregular or rapid heartbeat (arrhythmia). In AFib, the toppart of the heart (atria) beats in an irregular pattern. This makes the heart unable to pump blood normally and effectively. The goal of treatment is to prevent blood clots from forming, control your heart rate, or restore your heartbeat to a normal rhythm. If this condition is not treated, it can cause serious problems, such as a weakened heart muscle (cardiomyopathy) or a stroke. What are the causes? This condition is often caused by medical conditions that damage the heart's electrical system. These include: ??? High blood pressure (hypertension). This is the most common cause. ??? Certain heart problems or conditions, such as heart failure, coronary artery disease, heart valve problems, or heart surgery. ??? Diabetes. ??? Overactive thyroid (hyperthyroidism). ??? Chronic kidney disease. ??? Certain lung conditions, such as emphysema, pneumonia, or COPD. ??? Obstructive sleep apnea. In some cases, the cause of this condition is not known. What increases the risk? This condition is more likely to develop in: ??? Older adults. ??? Athletes who do endurance exercise. ??? People who have a family history of AFib. ??? Males. ??? People who are . ??? People who are obese. ??? People who smoke or misuse alcohol. What are the signs or symptoms? Symptoms of this condition include: ??? Fast or irregular heartbeats (palpitations). ??? Discomfort or pain in your chest. ??? Shortness of breath. ??? Sudden light-headedness or weakness. ??? Tiring easily during exercise or activity. ??? Syncope (fainting). ??? Sweating. In some cases, there are no symptoms. How is this diagnosed? Your health care provider may detect AFib when taking your pulse. If detected, this condition may be diagnosed with: ??? An electrocardiogram (ECG) to check electrical signals of the heart. ??? An ambulatory teletypesetter monitor to record your heart's activity for a few days. ??? A transthoracic echocardiogram (TTE) to create pictures of your heart. ??? A transesophageal echocardiogram (MARYCRUZ) to create even clearer pictures of your heart. ??? A stress test to check your blood supply while you exercise. ??? Imaging tests, such as a CT scan or chest X-ray. ??? Blood tests. How is this treated? Treatment depends on underlying conditions and how you feel when you get AFib. This condition may be treated with: ??? Medicines to prevent blood clots or to treat heart rate or heart rhythm problems. ??? Electrical cardioversion to reset the heart's rhythm. ??? A pacemaker to correct abnormal heart rhythm. ??? Ablation to remove the heart tissue that sends abnormal signals. ??? Left atrial appendage closure to seal the area where blood clots can form. In some cases, underlying conditions will be treated. Follow these instructions at home: Medicines ??? Take over-the counter and prescription medicines only as told by your provider. ??? Do not take any new medicines without talking to your provider. ??? If you are taking blood thinners: ? Talk with your provider before taking aspirin or NSAIDs. These medicines can raise your risk of bleeding. ? Take your medicines as told. Take them at the same time each day. ? Do not do things that could hurt or bruise you. Be careful to avoid falls. ? Wear an alert bracelet or carry a card that says that you take blood thinners. Lifestyle ??? Do not use any products that contain nicotine or tobacco. These products include cigarettes, chewing tobacco, and vaping devices, such as e-cigarettes. If you need help quitting, ask your provider. ??? Eat heart-healthy foods. Talk with a food expert (dietitian) to make an eating plan that is right for you. ??? Exercise regularly as told by your provider. ??? Do not drink alcohol. ??? Lose weight if you are overweight. General instructions ??? If you have obstructive sleep apnea, manage your condition as told by your provider. ??? Do not use diet pills unless your provider approves. Diet pills can make heart problems worse. ??? Keep all follow-up visits. Your provider will want to check your heart rate and rhythm regularly. Contact a health care provider if: ??? You notice a change in the rate, rhythm, or strength of your heartbeat. ??? You are taking a blood thinner and you notice more bruising. ??? You tire more easily when you exercise or do heavy work. ??? You have a sudden change in weight. Get help right away if: ??? You have chest pain. ??? You have trouble breathing. ??? You have side effects of blood thinners, such as blood in your vomit, poop (stool), or pee (urine), or bleeding that does not stop. ??? You have any symptoms of a stroke. BE FAST is an easy way to remember the main warning s (more content not included)...[facility] 06-11-2024 Hospital Discharge instructions Patient Education 06/11/2024 13:00:56 Urinary Tract Infection, Adult Urinary Tract Infection, Adult A urinary tract infection (UTI) is an infection of any part of the urinary tract. The urinary tractincludes the kidneys, ureters, bladder, and urethra. These organs make, store, and get rid of urinein the body. An upper UTI affects the ureters and kidneys. A lower UTI affects the bladder and urethra. What are the causes? Most urinary tract infections are caused by bacteria in your genital area around your urethra, where urine leaves your body. These bacteria grow and cause inflammation of your urinary tract. What increases the risk? You are more likely to develop this condition if: You have a urinary catheter that stays in place. You are not able to control when you urinate or have a bowel movement (incontinence). You are female and you: ?Use a spermicide or diaphragm for control. ?Have low estrogen levels. ?Are . You have certain genes that increase your risk. You are sexually active. You take antibiotic medicines. You have a condition that causes your flow of urine to slow down, such as: ?An enlarged prostate, if you are male. ?Blockage in your urethra. ?A kidney stone. ?A nerve condition that affects your bladder control (neurogenic bladder). ?Not getting enough to drink, or not urinating often. You have certain medical conditions, such as: ?Diabetes. ?A weak disease-fighting system (immunesystem). ?Sickle cell disease. ?Gout. ?Spinal cord injury. What are the signs or symptoms? Symptoms of this condition include: Needing to urinate right away (urgency). Frequent urination. This may include small amounts of urine each time you urinate. Pain or burning with urination. Blood in the urine. Urine that smells bad or unusual. Trouble urinating. Cloudy urine. Vaginal discharge, if you are female. Pain in the abdomen or the lower back. You may also have: Vomiting or a decreased appetite. Confusion. Irritability or tiredness. A fever or chills. Diarrhea. The first symptom in older adults may be confusion. In some cases, they may not have any symptoms until the infection has worsened. How is this diagnosed? This condition is diagnosed based on your medical history and a physical exam. You may also have other tests, including: Urine tests. Blood tests. Tests for STIs (sexually transmitted infections). If you have had more than one UTI, a cystoscopy or imaging studies may be done to determine the cause of the infections. How is this treated? Treatment for this condition includes: Antibiotic medicine. Ebjo-pzd-acmczfc medicines to treat discomfort. Drinking enough water to stay hydrated. If you have frequent infections or have other conditions such as a kidney stone, you may need to see a health care provider who specializes in the urinary tract (urologist). In rare cases, urinary tract infections can cause sepsis. Sepsis is a life- threatening condition that occurs when the body responds to an infection. Sepsis is treated in the hospital with IV antibiotics, fluids, and other medicines. Follow these instructions at home: Medicines Take exto-jpd-lwzxpef and prescription medicines only as told by your health care provider. If you were prescribed an antibiotic medicine, take it as told by your health care provider. Do notstop using the antibiotic even if you start to feel better. General instructions Make sure you: ?Empty your bladder often and completely. Do not hold urine for long periods of time. ?Empty your bladder after sex. ?Wipe from front to back after urinating or having a bowel movement if you are female. Use each tissue only one time when you wipe. Drink enough fluid to keep your urine pale yellow. Keep all follow-up visits. This is important. Contact a health care provider if: Your symptoms do not get better after 1 2 days. Your symptoms go away and then return. Get help right away if: You have severe pain in your back or your lower abdomen. You have a fever or chills. You have nausea or vomiting. Summary A urinary tract infection (UTI) is an infection of any part of the urinary tract, which includes the kidneys, ureters, bladder, and urethra. Most urinary tract infections are caused by bacteria in your genital area. Treatment for this condition often includes antibiotic medicines. If you were prescribed an antibiotic medicine, take it as told by your health care provider. Do notstop using the antibiotic even if you start to feel better. Keep all follow-up visits. This is important. This information is not intended to replace advice given to you by your health care provider. Make sure you discuss any questions you have with your health care provider. Document Revised: 11/09/2020 Document Reviewed: 11/14/2020 [employer] Patient Education 2023 [employer]. Follow Up Care 06/11/2024 09:26:47 With:Viral PARKER, GENERAL [employer]ACQUET MAKER, Stacia Mcmahan Address: [address] [place] [phone] When: only if needed [facility] 02-24-2025 NotePatient Education Obstetrics and Gynecology Urinary Tract Infection, Adult A urinary tract infection (UTI) is an infection of any part of the urinary tract. The urinary tractincludes the kidneys, ureters, bladder, and urethra. These organs make, store, and get rid of urinein the body. An upper UTI affects the ureters and kidneys. A lower UTI affects the bladder and urethra. What are the causes? Most urinary tract infections are caused by bacteria in your genital area around your urethra, where urine leaves your body. These bacteria grow and cause inflammation of your urinary tract. What increases the risk? You are more likely to develop this condition if: ??? You have a urinary catheter that stays in place. ??? You are not able to control when you urinate or have a bowel movement (incontinence). ??? You are female and you: ? Use a spermicide or diaphragm for control. ? Have low estrogen levels. ? Are . ??? You have certain genes that increase your risk. ??? You are sexually active. ??? You take antibiotic medicines. ??? You have a condition that causes your flow of urine to slow down, such as: ? An enlarged prostate, if you are male. ? Blockage in your urethra. ? A kidney stone. ? A nerve condition that affects your bladder control (neurogenic bladder). ? Not getting enough to drink, or not urinating often. ??? You have certain medical conditions, such as: ? Diabetes. ? A weak disease-fighting system (immunesystem). ? Sickle cell disease. ? Gout. ? Spinal cord injury. What are the signs or symptoms? Symptoms of this condition include: ??? Needing to urinate right away (urgency). ??? Frequent urination. This may include small amounts of urine each time you urinate. ??? Pain or burning with urination. ??? Blood in the urine. ??? Urine that smells bad or unusual. ??? Trouble urinating. ??? Cloudy urine. ??? Vaginal discharge, if you are female. ??? Pain in the abdomen or the lower back. You may also have: ??? Vomiting or a decreased appetite. ??? Confusion. ??? Irritability or tiredness. ??? A fever or chills. ??? Diarrhea. The first symptom in older adults may be confusion. In some cases, they may not have any symptoms until the infection has worsened. How is this diagnosed? This condition is diagnosed based on your medical history and a physical exam. You may also have other tests, including: ??? Urine tests. ??? Blood tests. ??? Tests for STIs (sexually transmitted infections). If you have had more than one UTI, a cystoscopy or imaging studies may be done to determine the cause of the infections. How is this treated? Treatment for this condition includes: ??? Antibiotic medicine. ??? Gmhc-lun-etyupki medicines to treat discomfort. ??? Drinking enough water to stay hydrated. If you have frequent infections or have other conditions such as a kidney stone, you may need to see a health care provider who specializes in the urinary tract (urologist). In rare cases, urinary tract infections can cause sepsis. Sepsis is a life- threatening condition that occurs when the body responds to an infection. Sepsis is treated in the hospital with IV antibiotics, fluids, and other medicines. Follow these instructions at home: Medicines ??? Take hmga-yxo-othnrog and prescription medicines only as told by your health care provider. ??? If you were prescribed an antibiotic medicine, take it as told by your health care provider. Donot stop using the antibiotic even if you start to feel better. General instructions ??? Make sure you: ? Empty your bladder often and completely. Do not hold urine for long periods of time. ? Empty your bladder after sex. ? Wipe from front to back after urinating or having a bowel movement if you are female. Use each tissue only one time when you wipe. ??? Drink enough fluid to keep your urine pale yellow. ??? Keep all follow-up visits. This is important. Contact a health care provider if: ??? Your symptoms do not get better after 1?2 days. ??? Your symptoms go away and then return. Get help right away if: ??? You have severe pain in your back or your lower abdomen. ??? You have a fever or chills. ??? You have nausea or vomiting. Summary ??? A urinary tract infection (UTI) is an infection of any part of the urinary tract, which includes the kidneys, ureters, bladder, and urethra. ??? Most urinary tract infections are caused by bacteria in your genital area. ??? Treatment for this condition often includes antibiotic medicines. ??? If you were prescribed an antibiotic medicine, take it as told by your health care provider. Donot stop using the antibiotic even if you start to feel better. ??? Keep all follow-up visits. This is important. This information is not intended to replace advice given to you by your health care provider. Make sure you di (more content not included)...[facility]01-24-2025 NotePatient Education ENT Otitis Media With Effusion, Adult Otitis media with effusion (OME) is inflammation and fluid (effusion) in the middle ear without having an ear infection. The middle ear is the space behind the eardrum. The middle ear is connected tothe back of the throat by a narrow tube (eustachian tube). Normally the eustachian tube drains fluid out of the middle ear. A swollen eustachian tube can become blocked and cause fluid to collect in the middle ear. OME often goes away without treatment. Sometimes OME can lead to hearing problems and recurrent acute ear infections (acute otitis media). These conditions may require treatment. What are the causes? OME is caused by a blocked eustachian tube. This can result from: ??? Allergies. ??? Upper respiratory infections. ??? Enlarged adenoids. The adenoids are areas of soft tissue located high in the back of the throat, behind the nose and the roof of the mouth. They are part of the body's natural defense system (immune system). ??? Rapid changes in pressure, like when an airplane is descending or during scuba diving. In some cases, the cause of this condition is not known. What are the signs or symptoms? Common symptoms of this condition include: ??? A feeling of fullness in your ear. ??? Decreased hearing in the affected ear. ??? Fluid draining into the ear canal. ??? Pain in the ear. In some cases, there are no symptoms. How is this diagnosed? A health care provider can diagnose OME based on signs and symptoms of the condition. Your providerwill also do a physical exam to check for fluid behind the eardrum. During the exam, your health care provider will use an instrument called an otoscope to look in your ear. Your health care provider may do other tests, such as: ??? A hearing test. ??? A tympanogram. This is a test that shows how well the eardrum moves in response to air pressurein the ear canal. It provides a graph for your health care provider to review. ??? A pneumatic otoscopy. This is a test to check how your eardrum moves in response to changes in pressure. It is done by squeezing a small amount of air into the ear. How is this treated? Treatment for OME depends on the cause of the condition and the severity of symptoms. The first step is often waiting to see if the fluid drains on its own in a few weeks. Home care treatment may include: ??? Fnlo-lnj-wgjejyo pain relievers. ??? A warm, moist cloth placed over the ear. Severe cases may require a procedure to insert tubes in the ears (tympanostomy tubes) to drain the fluid. Follow these instructions at home: ??? Take zipu-zqy-fpswkuq and prescription medicines only as told by your health care provider. ??? Keep all follow-up visits. Contact a health care provider if: ??? You have pain that gets worse. ??? Hearing in your affected ear gets worse. ??? You have fluid draining from your ear canal. ??? You have dizziness. ??? You develop a fever. Get help right away if: ??? You develop a severe headache. ??? You completely lose hearing in the affected ear. ??? You have bleeding from your ear canal. ??? You have sudden and severe pain in your ear. These symptoms may represent a serious problem that is an emergency. Do not wait to see if the symptoms will go away. Get medical help right away. Call your local emergency services (911 in the [place] Do not drive yourself to the hospital. Summary ??? Otitis media with effusion (OME) is inflammation and fluid (effusion) in the middle ear withouthaving an ear infection. ??? A swollen eustachian tube can become blocked and cause fluid to collect in the middle ear. ??? Treatment for OME depends on the cause of the condition and the severity of symptoms. ??? Many times, treatment is not needed because the fluid drains on its own in a few weeks. ??? Sometimes OME can lead to hearing problems and recurrent acute ear infections (acute otitis media), which may require treatment. This information is not intended to replace advice given to you by your health care provider. Make sure you discuss any questions you have with your health care provider. Document Revised: 07/30/2021 Document Reviewed: 07/30/2021 [employer] Patient Education ? 2023 [employer] Neurology Dizziness Dizziness is a common problem. It is a feeling of unsteadiness or light- headedness. You may feel like you are about to faint. Dizziness can lead to injury if you stumble or fall. Anyone can become dizzy, but dizziness is more common in older adults. This condition can be caused by a number of things, including medicines, dehydration, or illness. Follow these instructions at home: Eating and drinking ??? Drink enough fluid to keep your urine pale yellow. This helps to keep you from becoming dehydrated. Try to drink more clear fluids, such as water. ??? Do not drink (more content not included)...[facility] 05-07-2024 Telephone encounter Note* Telephone Encounter - Rosalba Desouza - 05/07/2024 11:08 AM EST Message relayed via [facility]01-20-2025 Miscellaneous Notes* Telephone Encounter - Rosalba Desouza - 05/07/2024 11:08 AM EST Message relayed via [facility] * Telephone Encounter - Wan Bloom MD - 05/07/2024 10:31 AM EST Please notify patient that her blood test was normal and no further testing is needed from my perspective. I can see her back in 1 year as we discussed, thanks. [facility] Telephone encounter Note * Telephone Encounter - Wan Bloom MD - 05/07/2024 10:31 AM EST Please notify patient that her blood test was normal and no further testing is needed from my perspective. I can see her back in 1 year as we discussed, thanks. [facility] Work Phone: [phone] 521-891901-16-2025 NoteDate of Procedure 05/03/2024. [facility] Worker Information Bala León, ADEEL 05/03/2024 1:05 PM . Cell Morphology Abnormal. Cell Density Interval Change Better.[id number] History of Present illness Narrative* Wan Bloom MD - 05/03/2024 1:27 PM EST Encounter Diagnosis ICD-10-CM 1. Keratoconus, stable, bilateral H18.613 ECC/CONFOCAL MICROSCOPY OS (LEFT EYE) 2. 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 - graft remains fairly clear despite 30+ year old graft, on PF BID, recent RRD repair with SB OD Reports hazy vision OS, VA 20/40cc today Exam with ghost vessels in area of prior NV, also with area of stromal haze, refractile deposits within, ?lipid Otherwise is quiet Plan: -Would lubricate with artificial tears -Continue follow up with Dr Patton for scleral lenses -Follow up with retina as scheduled for post PPV monitoring -Decrease PF to every day given inflammation is minimal +polychromatic crystalline deposits in area of previous rejection check spep to r/o blood dyscrasia otherwise can follow-up me 1 year discussed option of repeat transplant OS (may require PKP) next visit mrx iop ou ant seg oct os slit lamp photos os I have confirmed and edited as necessary the relevant ophthalmic history, ROS, and the neuro exam findings as obtained by others. I have seen and examined this patient. I have discussed the case and the management of this patient's care with the Resident/Fellow, if applicable. I also have reviewed and agree with the assessment and plan as stated above and agree with all of its relevant components. Wan Bloom MD documented [facility]25 NoteHNO ID: [id number] Author: WAN BLOOM MD Service: ? Author Type: Physician Type: Progress Notes Filed: 05/03/2024 13:55 Note Text: Encounter Diagnosis ICD-10-CM 1. Keratoconus, stable, bilateral H18.613 ECC/CONFOCAL MICROSCOPY OS (LEFT EYE) 2. 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 - graft remains fairly clear despite 30+ year old graft, on PF BID, recent RRD repair with SB OD Reports hazy vision OS, VA 20/40cc today Exam with ghost vessels in area of prior NV, also with area of stromal haze, refractile deposits within, ?lipid Otherwise is quiet Plan: -Would lubricate with artificial tears -Continue follow up with Dr Patton for scleral lenses -Follow up with retina as scheduled for post PPV monitoring -Decrease PF to every day given inflammation is minimal +polychromatic crystalline deposits in area of previous rejection check spep to r/o blood dyscrasia otherwise can follow-up me 1 year discussed option of repeat transplant OS (may require PKP) next visit mrx iop ou ant seg oct os slit lamp photos os I have confirmed and edited as necessary the relevant ophthalmic history, ROS, and the neuro exam findings as obtained by others. I have seen and examined this patient. I have discussed the case and the management of this patient's care with the Resident/Fellow, if applicable. I also have reviewed and agree with the assessment and plan as stated above and agree with all of its relevant components. Wan Bloom, [facility]11-25-2024 NotePatient Education Cardiovascular Hypertension, Adult High blood pressure (hypertension) is when the force of blood pumping through the arteries is too strong. The arteries are the blood vessels that carry blood from the heart throughout the body. Hypertension forces the heart to work harder to pump blood and may cause arteries to become narrow or stiff. Untreated or uncontrolled hypertension can lead to a heart attack, heart failure, a stroke, kidney disease, and other problems. A blood pressure reading consists of a higher number over a lower number. Ideally, your blood pressure should be below 120/80. The first ( top ) number is called the systolic pressure. It is a measure of the pressure in your arteries as your heart beats. The second ( bottom ) number is called the diastolic pressure. It is a measure of the pressure in your arteries as the heart relaxes. What are the causes? The exact cause of this condition is not known. There are some conditions that result in high bloodpressure. What increases the risk? Certain factors may make you more likely to develop high blood pressure. Some of these risk factorsare under your control, including: ??? Smoking. ??? Not getting enough exercise or physical activity. ??? Being overweight. ??? Having too much fat, sugar, calories, or salt (sodium) in your diet. ??? Drinking too much alcohol. Other risk factors include: ??? Having a personal history of heart disease, diabetes, high cholesterol, or kidney disease. ??? Stress. ??? Having a family history of high blood pressure and high cholesterol. ??? Having obstructive sleep apnea. ??? Age. The risk increases with age. What are the signs or symptoms? High blood pressure may not cause symptoms. Very high blood pressure (hypertensive crisis) may cause: ??? Headache. ??? Fast or irregular heartbeats (palpitations). ??? Shortness of breath. ??? Nosebleed. ??? Nausea and vomiting. ??? Vision changes. ??? Severe chest pain, dizziness, and seizures. How is this diagnosed? This condition is diagnosed by measuring your blood pressure while you are seated, with your arm resting on a flat surface, your legs uncrossed, and your feet flat on the floor. The cuff of the bloodpressure monitor will be placed directly against the skin of your upper arm at the level of your heart. Blood pressure should be measured at least twice using the same arm. Certain conditions can cause a difference in blood pressure between your right and left arms. If you have a high blood pressure reading during one visit or you have normal blood pressure with other risk factors, you may be asked to: ??? Return on a different day to have your blood pressure checked again. ??? Monitor your blood pressure at home for 1 week or longer. If you are diagnosed with hypertension, you may have other blood or imaging tests to help your health care provider understand your overall risk for other conditions. How is this treated? This condition is treated by making healthy lifestyle changes, such as eating healthy foods, exercising more, and reducing your alcohol intake. You may be referred for counseling on a healthy diet and physical activity. Your health care provider may prescribe medicine if lifestyle changes are not enough to get your blood pressure under control and if: ??? Your systolic blood pressure is above 130. ??? Your diastolic blood pressure is above 80. Your personal target blood pressure may vary depending on your medical conditions, your age, and other factors. Follow these instructions at home: Eating and drinking ??? Eat a diet that is high in fiber and potassium, and low in sodium, added sugar, and fat. An example of this eating plan is called the DASH diet. DASH stands for Dietary Approaches to Stop Hypertension. To eat this way: ? Eat plenty of fresh fruits and vegetables. Try to fill one half of your plate at each meal with fruits and vegetables. ? Eat whole grains, such as whole-wheat pasta, brown rice, or whole-grain bread. Fill about one fourth of your plate with whole grains. ? Eat or drink low-fat dairy products, such as skim milk or low-fat yogurt. ? Avoid fatty cuts of meat, processed or cured meats, and poultry with skin. Fill about one fourth of your plate with lean proteins, such as fish, chicken without skin, beans, eggs, or tofu. ? Avoid pre-made and processed foods. These tend to be higher in sodium, added sugar, and fat. ??? Reduce your daily sodium intake. Many people with hypertension should eat less than 1,500 mg ofsodium a day. ??? Do not drink alcohol if: ? Your health care provider tells you not to drink. ? You are , may be , or are planning to become . ??? If you drink alcohol: ? Limit how much you have to: ? 0?1 drink a day for women. ? 0?2 drinks a day for men. ? Know how much alcohol is in your drink. In the [place] one drink equals one 12 oz bottle (more content not included)...[facility]11-24-2024 Hospital Discharge instructions Patient Education 03/11/2024 12:06:12 Managing Anxiety, Adult Managing Anxiety, Adult After being diagnosed with anxiety, you may be relieved to know why you have felt or behaved a certain way. You may also feel overwhelmed about the treatment ahead and what it will mean for your life. With care and support, you can manage your anxiety. How to manage lifestyle changes Understanding the difference between stress and anxiety Although stress can play a role in anxiety, it is not the same as anxiety. Stress is your body's reaction to life changes and events, both good and bad. Stress is often caused by something external, such as a deadline, test, or competition. It normally goes away after the event has ended and will last just a few hours. But, stress can be ongoing and can lead to more than just stress. Anxiety is caused by something internal, such as imagining a terrible outcome or worrying that something will go wrong that will greatly upset you. Anxiety often does not go away even after the eventis over, and it can become a long-term (chronic) worry. Lowering stress and anxiety Talk with your health care provider or a counselor to learn more about lowering anxiety and stress.They may suggest tension-reduction techniques, such as: Music. Spend time creating or listening to music that you enjoy and that inspires you. Mindfulness-based meditation. Practice being aware of your normal breaths while not trying to control your breathing. It can be done while sitting or walking. Centering prayer. Focus on a word, phrase, or sacred image that means something to you and brings you peace. Deep breathing. Expand your stomach and inhale slowly through your nose. Hold your breath for 3 5 seconds. Then breathe out slowly, letting your stomach muscles relax. Self-talk. Learn to notice and spot thought patterns that lead to anxiety reactions. Change those patterns to thoughts that feel peaceful. Muscle relaxation. Take time to tense muscles and then relax them. Choose a tension-reduction technique that fits your lifestyle and personality. These techniques take time and practice. Set aside 5 15 minutes a day to do them. Specialized therapists can offer counseling and training in these techniques. The training to help with anxiety may be covered by some insurance plans. Other things you can do to manage stress and anxiety include: Keeping a stress diary. This can help you learn what triggers your reaction and then learn ways to manage your response. Thinking about how you react to certain situations. You may not be able to control everything, but you can control your response. Making time for activities that help you relax and not feeling guilty about spending your time in this way. Doing visual imagery. This involves imagining or creating mental pictures to help you relax. Practicing yoga. Through yoga poses, you can lower tension and relax. Medicines Medicines for anxiety include: Antidepressant medicines. These are usually prescribed for long-term daily control. Anti-anxiety medicines. These may be added in severe cases, especially when panic attacks occur. When used together, medicines, psychotherapy, and tension-reduction techniques may be the most effective treatment. Relationships Relationships can play a big part in helping you recover. Spend more time connecting with trusted friends and family members. Think about going to couples counseling if you have a partner, taking family education classes, or going to family therapy. Therapy can help you and others better understandyour anxiety. How to recognize changes in your anxiety Everyone responds differently to treatment for anxiety. Recovery from anxiety happens when symptomslessen and stop interfering with your daily life at home or work. This may mean that you will startto: Have better concentration and focus. Worry will interfere less in your daily thinking. Sleep better. Be less irritable. Have more energy. Have improved memory. Try to recognize when your condition is getting worse. Contact your provider if your symptoms interfere with home or work and you feel like your condition is not improving. Follow these instructions at home: Activity Exercise. Adults should: ?Exercise for at least 150 minutes each week. The exercise should increase your heart rate and makeyou sweat (moderate-intensity exercise). ?Do strengthening exercises at least twice a week. Get the right amount and quality of sleep. Most adults need 7 9 hours of sleep each night. Lifestyle Eat a healthy diet that includes plenty of vegetables, fruits, whole grains, low-fat dairy products, and lean protein. ?Do not eat a lot of foods that are high in fats, added sugars, or salt (sodium). Make choices that simplify your life. Do not use any products that contain nicotine or tobacco. These products include cigarettes, chewing tobacco, and vaping devices, such as e-cigarettes. If you need help quitting, ask your provider. Avoid caffeine, alcohol, and certain njww-qzt-auttned cold medicines. These may make you feel worse. Ask your pharmacist which medicines to avoid. General instructions Take dtri-wix-vuvyaxb and prescription medicines only as told by your provider. Keep all follow-up visits. This is to make sure you are managing your anxiety well or if you need more support. Where to find support You can get help and support from: Self-help groups. Online and community organizations. A trusted spiritual leader. Couples counseling. Family education classes. Family therapy. Where to find more information You may find that joining a support group helps you deal with your anxiety. The following sources can help you find counselors or support groups near you: Mental Health [place]: mentalhealthamerica.net Anxiety and Depression Association of [place] (ADAA): adaa.org National [place] on Mental Illness (ALEJANDRO): alejandro.org Contact a health care provider if: You have a hard time staying focused or finishing tasks. You spend many hours a day feeling worried about everyday life. You are very tired because you cannot stop worrying. You start to have headaches or often feel tense. You have chronic nausea or diarrhea. Get help right away if: Your heart feels like it is racing. You have shortness of breath. You have thoughts of hurting yourself or others. Get help right away if you feel like you may hurt yourself or others, or have thoughts about takingyour own life. Go to your nearest emergency room or: Call 911. Call the National Suicide Prevention Lifeline at or 551. This is open 24 hours a day. Text the Crisis Text Line at 625366. This information is not intended to replace advice given to you by your health care provider. Make sure you discuss any questions you have with your health care provider. Document Revised: 01/11/2023 Document Reviewed: 07/26/2021 [employer] [place] Patient Education 2023 [employer] [place] [employer] 03/11/2024 12:06:09 Hypertension, Adult Hypertension, Adult High blood pressure (hypertension) is when the force of blood pumping through the arteries is too strong. The arteries are the blood vessels that carry blood from the heart throughout the body. Hypertension forces the heart to work harder to pump blood and may cause arteries to become narrow or stiff. Untreated or uncontrolled hypertension can lead to a heart attack, heart failure, a stroke, kidney disease, and other problems. A blood pressure reading consists of a higher number over a lower number. Ideally, your blood pressure should be below 120/80. The first ( top ) number is called the systolic pressure. It is a measure of the pressure in your arteries as your heart beats. The second ( bottom ) number is called the diastolic pressure. It is a measure of the pressure in your arteries as the heart relaxes. What are the causes? The exact cause of this condition is not known. There are some conditions that result in high bloodpressure. What increases the risk? Certain factors may make you more likely to develop high blood pressure. Some of these risk factorsare under your control, including: Smoking. Not getting enough exercise or physical activity. Being overweight. Having too much fat, sugar, calories, or salt (sodium) in your diet. Drinking too much alcohol. Other risk factors include: Having a personal history of heart disease, diabetes, high cholesterol, or kidney disease. Stress. Having a family history of high blood pressure and high cholesterol. Having obstructive sleep apnea. Age. The risk increases with age. What are the signs or symptoms? High blood pressure may not cause symptoms. Very high blood pressure (hypertensive crisis) may cause: Headache. Fast or irregular heartbeats (palpitations). Shortness of breath. Nosebleed. Nausea and vomiting. Vision changes. Severe chest pain, dizziness, and seizures. How is this diagnosed? This condition is diagnosed by measuring your blood pressure while you are seated, with your arm resting on a flat surface, your legs uncrossed, and your feet flat on the floor. The cuff of the bloodpressure monitor will be placed directly against the skin of your upper arm at the level of your heart. Blood pressure should be measured at least twice using the same arm. Certain conditions can cause a difference in blood pressure between your right and left arms. If you have a high blood pressure reading during one visit or you have normal blood pressure with other risk factors, you may be asked to: Return on a different day to have your blood pressure checked again. Monitor your blood pressure at home for 1 week or longer. If you are diagnosed with hypertension, you may have other blood or imaging tests to help your health care provider understand your overall risk for other conditions. How is this treated? This condition is treated by making healthy lifestyle changes, such as eating healthy foods, exercising more, and reducing your alcohol intake. You may be referred for counseling on a healthy diet and physical activity. Your health care provider may prescribe medicine if lifestyle changes are not enough to get your blood pressure under control and if: Your systolic blood pressure is above 130. Your diastolic blood pressure is above 80. Your personal target blood pressure may vary depending on your medical conditions, your age, and other factors. Follow these instructions at home: Eating and drinking Eat a diet that is high in fiber and potassium, and low in sodium, added sugar, and fat. An exampleof this eating plan is called the DASH diet. DASH stands for Dietary Approaches to Stop Hypertension. To eat this way: ?Eat plenty of fresh fruits and vegetables. Try to fill one half of your plate at each meal with fruits and vegetables. ?Eat whole grains, such as whole-wheat pasta, brown rice, or whole-grain bread. Fill about one fourth of your plate with whole grains. ?Eat or drink low-fat dairy products, such as skim milk or low-fat yogurt. ?Avoid fatty cuts of meat, processed or cured meats, and poultry with skin. Fill about one fourth of your plate with lean proteins, such as fish, chicken without skin, beans, eggs, or tofu. ?Avoid pre-made and processed foods. These tend to be higher in sodium, added sugar, and fat. Reduce your daily sodium intake. Many people with hypertension should eat less than 1,500 mg of sodium a day. Do not drink alcohol if: ?Your health care provider tells you not to drink. ?You are , may be , or are planning to become . If you drink alcohol: ?Limit how much you have to: ?0 1 drink a day for women. ?0 2 drinks a day for men. ?Know how much alcohol is in your drink. In the [place] one drink equals one 12 oz bottle of beer (355 mL), one 5 oz glass of wine (148 mL), or one 1 oz glass of hard liquor (44 mL). Lifestyle Work with your health care provider to maintain a healthy body weight or to lose weight. Ask what an ideal weight is for you. Get at least 30 minutes of exercise that causes your heart to beat faster (aerobic exercise) most days of the week. Activities may include walking, swimming, or biking. Include exercise to strengthen your muscles (resistance exercise), such as Pilates or lifting weights, as part of your weekly exercise routine. Try to do these types of exercises for 30 minutes at least 3 days a week. Do not use any products that contain nicotine or tobacco. These products include cigarettes, chewing tobacco, and vaping devices, such as e-cigarettes. If you need help quitting, ask your health careprovider. Monitor your blood pressure at home as told by your health care provider. Keep all follow-up visits. This is important. Medicines Take qtcg-qqm-bwcvpyl and prescription medicines only as told by your health care provider. Follow directions carefully. Blood pressure medicines must be taken as prescribed. Do not skip doses of blood pressure medicine. Doing this puts you at risk for problems and can makethe medicine less effective. Ask your health care provider about side effects or reactions to medicines that you should watch for. Contact a health care provider if you: Think you are having a reaction to a medicine you are taking. Have headaches that keep coming back (recurring). Feel dizzy. Have swelling in your ankles. Have trouble with your vision. Get help right away if you: Develop a severe headache or confusion. Have unusual weakness or numbness. Feel faint. Have severe pain in your chest or abdomen. Vomit repeatedly. Have trouble breathing. These symptoms may be an emergency. Get help right away. Call 911. Do not wait to see if the symptoms will go away. Do not drive yourself to the hospital. Summary Hypertension is when the force of blood pumping through your arteries is too strong. If this condition is not controlled, it may put you at risk for serious complications. Your personal target blood pressure may vary depending on your medical conditions, your age, and other factors. For most people, a normal blood pressure is less than 120/80. Hypertension is treated with lifestyle changes, medicines, or a combination of both. Lifestyle changes include losing weight, eating a healthy, low-sodium diet, exercising more, and limiting alcohol. This information is not intended to replace advice given to you by your health care provider. Make sure you discuss any questions you have with your health care provider. Document Revised: 02/09/2022 Document Reviewed: 02/09/2022 [employer] [place] Patient Education 2023 [employer]. Follow Up Care 11/07/2023 15:19:02 With:Viral PARKER, GENERAL PURCHASING AGENT-Stacia POSADA Address: [address] [place] [phone] When:Within 4 Month(s) Comments:chronic care [facility] 11-22-2024 Instructions* Patient Instructions* Alice Katz RN - 03/09/2024 12:25 PM EST Continue on Prednisolone drop twice a day. [facility] NoteDate of Procedure 03/09/2024. [facility] Worker Information Telecom Manager: Christa Umaña;. Start time: 10:36 AM. Stop time: 10:36 AM. Interpretation Right Eye Findings include Epiretinal membrane; Negative for Intraretinal fluid, Subretinal fluid. Left Eye Findings include PED, Epiretinal membrane, IS/OS junction; Negative for Intraretinal fluid, Subretinal fluid. Interval Change Right Eye Stable. 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 #. 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 Bloom - is[place] corneal scar, appears like keratoconus PLAN: Discussed above with patient Maintain Prednisolone twice a day OS Return to clinic~ NEXT: I have confirmed and edited as necessary the relevant ophthalmic history, ROS, and the neuro exam findings as obtained by others. I have seen and examined this patient. I have discussed the case and the management of this patient's care with the Resident and/or fellowif applicable. I also have reviewed and agree with the assessment and plan as stated above and agree with all of its relevant components. Tati Arenas MD, PhD Vitreoretinal Surgery & Ocular Inflammatory Diseases [facility] documented in this encounterOhio[facility]24 NoteHNO ID: [id number] Author: TATI ARENAS MD Service: ? 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 #. 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 Bloom - [place] corneal scar, appears like keratoconus PLAN: Discussed above with patient Maintain Prednisolone twice a day OS Return to clinic~ NEXT: I have confirmed and edited as necessary the relevant ophthalmic history, ROS, and the neuro exam findings as obtained by others. I have seen and examined this patient. I have discussed the case and the management of this patient's care with the Resident and/or fellow if applicable. I also have reviewed and agree with the assessment and plan as stated above and agree with all of its relevant components. Tati Arenas MD, PhD Vitreoretinal Surgery AND Ocular Inflammatory Diseases [facility]10-11-2024 Note Date of Procedure 01/27/2024. [facility] Worker Information Telecom Manager: LV. Disc Right Eye Normal. Left Eye Normal. Macula Right Eye Normal. Left Eye RPE mottling. Periphery Right Eye Pigmentation. Left Eye Pigmentation. Notes Obtained for future [id number] NoteDate of Procedure 01/27/2024. Interpretation Right Eye Findings include Epiretinal membrane; Negative for Intraretinal fluid, Subretinal fluid. Left Eye Findings include Intraretinal fluid, Epiretinal membrane. Interval Change Right Eye Stable. 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 #. 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 Bloom - [place] corneal scar, appears like keratoconus PLAN: Discussed above with patient Start PF BID to treat CME Return to clinic~ 6 weeks NEXT: DILATE both eyes, OCT OU I have confirmed and edited as necessary the relevant ophthalmic history, ROS, and the neuro exam findings as obtained by others. I have seen and examined this patient. I have discussed the case and the management of this patient's care with the Resident and/or fellowif applicable. I also have reviewed and agree with the assessment and plan as stated above and agree with all of its relevant components. Tati Arenas MD, PhD Vitreoretinal Surgery & Ocular Inflammatory [facility] documented in this encounterOhio[facility]24 NoteHNO ID: [id number] Author: TATI ARENAS MD Service: ? 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 #. 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 Bloom - israel corneal scar, appears like keratoconus PLAN: Discussed above with patient Start PF BID to treat CME Return to clinic~ 6 weeks NEXT: DILATE both eyes, OCT OU I have confirmed and edited as necessary the relevant ophthalmic history, ROS, and the neuro exam findings as obtained by others. I have seen and examined this patient. I have discussed the case and the management of this patient's care with the Resident and/or fellow if applicable. I also have reviewed and agree with the assessment and plan as stated above and agree with all of its relevant components. Tati Arenas MD, PhD Vitreoretinal Surgery AND Ocular Inflammatory Diseases [facility]09-27-2024 Hospital Discharge instructions Patient Education 01/13/2024 10:32:07 BMI for Adults BMI for Adults Body mass index (BMI) is a number found using a person's weight and height. BMI can help tell how much of a person's weight is made up of fat. BMI does not measure body fat directly. It is used instead of tests that directly measure body fat, which can be difficult and expensive. What are BMI measurements used for? BMI is useful to: Find out if your weight puts you at higher risk for medical problems. Help recommend changes, such as in diet and exercise. This can help you reach a healthy weight. BMIscreening can be done again to see if these changes are working. How is BMI calculated? Your height and weight are measured. The BMI is found from those numbers. This can be done with U.S[place] or metric measurements. Note that charts and online BMI calculators are available to help you findyour BMI quickly and easily without doing these calculations. To calculate your BMI in U.[place]. measurements: 1.Measure your weight in pounds (lb). 2.Multiply the number of pounds by 703. So, for an adult who weighs 150 lb, multiply that number by 703: 150 x 703, which equals 105,450. 3.Measure your height in inches. Then multiply that number by itself to get a measurement called inches squared. So, for an adult who is 70 inches tall, the inches squared measurement is 70 inches x 70 inches, which equals 4,900 inches squared. 4.Divide the total from step 2 (number of lb x 703) by the total from step 3 (inches squared): 105,450 4,900 = 21.5. This is your BMI. To calculate your BMI in metric measurements: 1.Measure your weight in kilograms (kg). For this example, the weight is 70 kg. 2.Measure your height in meters (m). Then multiply that number by itself to get a measurement called meters squared. So, for an adult who is 1.75 m tall, the meters squared measurement is 1.75 m x 1.75 m, which equals 3.1 meters squared. 3.Divide the number of kilograms (your weight) by the meters squared number. In this example: 70 3.1 = 22.6. This is your BMI. What do the results mean? BMI charts are used to see if you are underweight, normal weight, overweight, or obese. The following guidelines will be used: Underweight: BMI less than 18.5. Normal weight: BMI between 18.5 and 24.9. Overweight: BMI between 25 and 29.9. Obese: BMI of 30 or above. BMI is a tool and cannot diagnose a condition. Talk with your health care provider about what your BMI means for you. Keep these notes in mind: Weight includes fat and muscle. Someone with a muscular build, such as an athlete, may have a BMI that is higher than 24.9. In cases like these, BMI is not a correct measure of body fat. If you have a BMI of 25 or higher, your provider may need to do more testing to find out if excess body fat is the cause. BMI is measured the same way for males and females. Females usually have more body fat than males of the same height and weight. Where to find more information For more information about BMI, including tools to quickly find your BMI, go to: Centers for Disease Control and Prevention: cdc.gov Swiss Heart Association: heart.org National Heart, Lung, and Blood [place]: nhlbi.nih.gov This information is not intended to replace advice given to you by your health care provider. Make sure you discuss any questions you have with your health care provider. Document Revised: 12/23/2022 Document Reviewed: 12/16/2022 [employer] [place] Patient Education 2023 [employer] 01/13/2024 10:32:03 Dyslipidemia Dyslipidemia Dyslipidemia is an imbalance of waxy, fat-like substances (lipids) in the blood. The body needs lipids in small amounts. Dyslipidemia often involves a high level of cholesterol or triglycerides, which are types of lipids. Common forms of dyslipidemia include: High levels of LDL cholesterol. LDL is the type of cholesterol that causes fatty deposits (plaques)to build up in the blood vessels that carry blood away from the heart (arteries). Low levels of HDL cholesterol. HDL cholesterol is the type of cholesterol that protects against heart disease. High levels of HDL remove the LDL buildup from arteries. High levels of triglycerides. Triglycerides are a fatty substance in the blood that is linked to a buildup of plaques in the arteries. What are the causes? There are two main types of dyslipidemia: primary and secondary. Primary dyslipidemia is caused by changes (mutations) in genes that are passed down through families (inherited). These mutations cause several types of dyslipidemia. Secondary dyslipidemia may be caused by various risk factors that can lead to the disease, such as lifestyle choices and certain medical conditions. What increases the risk? You are more likely to develop this condition if you are an older man or if you are a woman who hasgone through menopause. Other risk factors include: Having a family history of dyslipidemia. Taking certain medicines, including control pills, steroids, some diuretics, and beta-blockers. Eating a diet high in saturated fat. Smoking cigarettes or excessive alcohol intake. Having certain medical conditions such as diabetes, polycystic ovary syndrome (PCOS), kidney disease, liver disease, or hypothyroidism. Not exercising regularly. Being overweight or obese with too much belly fat. What are the signs or symptoms? In most cases, dyslipidemia does not usually cause any symptoms. In severe cases, very high lipid levels can cause: Fatty bumps under the skin (xanthomas). A white or berry ring around the black center (pupil) of the eye. Very high triglyceride levels can cause inflammation of the pancreas (pancreatitis). How is this diagnosed? Your health care provider may diagnose dyslipidemia based on a routine blood test (fasting blood test). Because most people do not have symptoms of the condition, this blood testing (lipid profile) is done on adults age 20 and older and is repeated every 4-6 years. This test checks: Total cholesterol. This measures the total amount of cholesterol in your blood, including LDL cholesterol, HDL cholesterol, and triglycerides. A healthy number is below 200 mg/dL (5.17 mmol/L). LDL cholesterol. The target number for LDL cholesterol is different for each person, depending on individual risk factors. A healthy number is usually below 100 mg/dL (2.59 mmol/L). Ask your health care provider what your LDL cholesterol should be. HDL cholesterol. An HDL level of 60 mg/dL (1.55 mmol/L) or higher is best because it helps to protect against heart disease. A number below 40 mg/dL (1.03 mmol/L) for men or below 50 mg/dL (1.29 mmol/L) for women increases the risk for heart disease. Triglycerides. A healthy triglyceride number is below 150 mg/dL (1.69 mmol/L). If your lipid profile is abnormal, your health care provider may do other blood tests. How is this treated? Treatment depends on the type of dyslipidemia that you have and your other risk factors for heart disease and stroke. Your health care provider will have a target range for your lipid levels based onthis information. Treatment for dyslipidemia starts with lifestyle changes, such as diet and exercise. Your health care provider may recommend that you: Get regular exercise. Make changes to your diet. Quit smoking if you smoke. Limit your alcohol intake. If diet changes and exercise do not help you reach your goals, your health care provider may also prescribe medicine to lower lipids. The most commonly prescribed type of medicine lowers your LDL cholesterol (statin drug). If you have a high triglyceride level, your provider may prescribe another type of drug (fibrate) or an omega-3 fish oil supplement, or both. Follow these instructions at home: Eating and drinking Follow instructions from your health care provider or dietitian about eating or drinking restrictions. Eat a healthy diet as told by your health care provider. This can help you reach and maintain a healthy weight, lower your LDL cholesterol, and raise your HDL cholesterol. This may include: ?Limiting your calories, if you are overweight. ?Eating more fruits, vegetables, whole grains, fish, and lean meats. ?Limiting saturated fat, trans fat, and cholesterol. Do not drink alcohol if: ?Your health care provider tells you not to drink. ?You are , may be , or are planning to become . If you drink alcohol: ?Limit how much you have to: ?0 1 drink a day for women. ? 0 2 drinks a day for men. ?Know how much alcohol is in your drink. In the [place] one drink equals one 12 oz bottle of beer (355 mL), one 5 oz glass of wine (148 mL), or one 1 oz glass of hard liquor (44 mL). Activity Get regular exercise. Start an exercise and strength training program as told by your health care provider. Ask your health care provider what activities are safe for you. Your health care provider may recommend: ?30 minutes of aerobic activity 4 6 days a week. Brisk walking is an example of aerobic activity. ?Strength training 2 days a week. General instructions Do not use any products that contain nicotine or tobacco. These products include cigarettes, chewing tobacco, and vaping devices, such as e-cigarettes. If you need help quitting, ask your health careprovider. Take alig-jwo-asxstsy and prescription medicines only as told by your health care provider. This includes supplements. Keep all follow-up visits. This is important. Contact a health care provider if: You are having trouble sticking to your exercise or diet plan. You are struggling to quit smoking or to control your use of alcohol. Summary Dyslipidemia often involves a high level of cholesterol or triglycerides, which are types of lipids. Treatment depends on the type of dyslipidemia that you have and your other risk factors for heart disease and stroke. Treatment for dyslipidemia starts with lifestyle changes, such as diet and exercise. Your health care provider may prescribe medicine to lower lipids. This information is not intended to replace advice given to you by your health care provider. Make sure you discuss any questions you have with your health care provider. Document Revised: 11/05/2022 Document Reviewed: 06/08/2021 [employer] [place] Patient Education 2023 [employer]. 01/13/2024 10:32:01 DASH Eating Plan DASH Eating Plan DASH stands for Dietary Approaches to Stop Hypertension. The DASH eating plan is a healthy eating plan that has been shown to: Lower high blood pressure (hypertension). Reduce your risk for type 2 diabetes, heart disease, and stroke. Help with weight loss. What are tips for following this plan? Reading food labels Check food labels for the amount of salt (sodium) per serving. Choose foods with less than 5 percent of the Daily Value (DV) of sodium. In general, foods with less than 300 milligrams (mg) of sodium per serving fit into this eating plan. To find whole grains, look for the word whole as the first word in the ingredient list. Shopping Buy products labeled as low-sodium or no salt added. Buy fresh foods. Avoid canned foods and pre-made or frozen meals. Cooking Try not to add salt when you cook. Use salt-free seasonings or herbs instead of table salt or sea salt. Check with your health care provider or pharmacist before using salt substitutes. Do not muniz foods. Cook foods in healthy ways, such as baking, boiling, grilling, roasting, or broiling. Cook using oils that are good for your heart. These include olive, canola, avocado, soybean, and sunflower oil. Meal planning Eat a balanced diet. This should include: ?4 or more servings of fruits and 4 or more servings of vegetables each day. Try to fill half of your plate with fruits and vegetables. ?6 8 servings of whole grains each day. ?6 or less servings of lean meat, poultry, or fish each day. 1 oz is 1 serving. A 3 oz (85 g) serving of meat is about the same size as the palm of your hand. One egg is 1 oz (28 g). ?2 3 servings of low-fat dairy each day. One serving is 1 cup (237 mL). ?1 serving of nuts, seeds, or beans 5 times each week. ?2 3 servings of heart-healthy fats. Healthy fats called omega-3 fatty acids are found in foods such as walnuts, flaxseeds, fortified milks, and eggs. These fats are also found in cold-water fish, such as sardines, salmon, and mackerel. Limit how much you eat of: ?Canned or prepackaged foods. ?Food that is high in trans fat, such as fried foods. ?Food that is high in saturated fat, such as fatty meat. ?Desserts and other sweets, sugary drinks, and other foods with added sugar. ?Full-fat dairy products. Do not salt foods before eating. Do not eat more than 4 egg yolks a week. Try to eat at least 2 vegetarian meals a week. Eat more home-cooked food and less restaurant, buffet, and fast food. Lifestyle When eating at a restaurant, ask if your food can be made with less salt or no salt. If you drink alcohol: ?Limit how much you have to: ?0 1 drink a day if you are female. ?0 2 drinks a day if you are male. ?Know how much alcohol is in your drink. In the [place] one drink is one 12 oz bottle of beer (355 mL), one 5 oz glass of wine (148 mL), or one 1 oz glass of hard liquor (44 mL). General information Avoid eating more than 2,300 mg of salt a day. If you have hypertension, you may need to reduce your sodium intake to 1,500 mg a day. Work with your provider to stay at a healthy body weight or lose weight. Ask what the best weight range is for you. On most days of the week, get at least 30 minutes of exercise that causes your heart to beat faster. This may include walking, swimming, or biking. Work with your provider or dietitian to adjust your eating plan to meet your specific calorie needs. What foods should I eat? Fruits All fresh, dried, or frozen fruit. Canned fruits that are in their natural juice and do not have sugar added to them. Vegetables Fresh or frozen vegetables that are raw, steamed, roasted, or grilled. Low- sodium or reduced-sodiumtomato and vegetable juice. Low-sodium or reduced-sodium tomato sauce and tomato paste. Low-sodium or reduced-sodium canned vegetables. Grains Whole-grain or whole-wheat bread. Whole-grain or whole-wheat pasta. Brown rice. Oatmeal. Quinoa. Bulgur. Whole-grain and low-sodium cereals. Cristina bread. Low- fat, low-sodium crackers. Whole-wheat flour tortillas. Meats and other proteins Skinless chicken or turkey. Ground chicken or turkey. Pork with fat trimmed off. Fish and seafood. Egg whites. Dried beans, peas, or lentils. Unsalted nuts, nut butters, and seeds. Unsalted canned beans. Lean cuts of beef with fat trimmed off. Low-sodium, lean precooked or cured meat, such as sausages or meat loaves. Dairy Low-fat (1%) or fat-free (skim) milk. Reduced-fat, low-fat, or fat-free cheeses. Nonfat, low-sodiumricotta or cottage cheese. Low-fat or nonfat yogurt. Low-fat, low-sodium cheese. Fats and oils Soft margarine without trans fats. Vegetable oil. Reduced-fat, low-fat, or light mayonnaise and salad dressings (reduced-sodium). Canola, safflower, olive, avocado, soybean, and sunflower oils. Avocado. Seasonings and condiments Herbs. Spices. Seasoning mixes without salt. Other foods Unsalted popcorn and pretzels. Fat-free sweets. The items listed above may not be all the foods and drinks you can have. Talk to a dietitian to learn more. What foods should I avoid? Fruits Canned fruit in a light or heavy syrup. Fried fruit. Fruit in cream or butter sauce. Vegetables Creamed or fried vegetables. Vegetables in a cheese sauce. Regular canned vegetables that are not marked as low-sodium or reduced-sodium. Regular canned tomato sauce and paste that are not marked as low-sodium or reduced-sodium. Regular tomato and vegetable juices that are not marked as low-sodium or reduced-sodium. Pickles. Olives. Grains Baked goods made with fat, such as croissants, muffins, or some breads. Dry pasta or rice meal packs. Meats and other proteins Fatty cuts of meat. Ribs. Fried meat. Cardoso. Bologna, salami, and other precooked or cured meats, such as sausages or meat loaves, that are not lean and low in sodium. Fat from the back of a pig (fatback). Bratwurst. Salted nuts and seeds. Canned beans with added salt. Canned or smoked fish. Whole eggs or egg yolks. Chicken or turkey with skin. Dairy Whole or 2% milk, cream, and agvp-npr-fhme. Whole or full-fat cream cheese. Whole-fat or sweetened yogurt. Full-fat cheese. Nondairy creamers. Whipped toppings. Processed cheese and cheese spreads. Fats and oils Butter. Stick margarine. Lard. Shortening. Ghee. Cardoso fat. Tropical oils, such as coconut, palm kernel, or palm oil. Seasonings and condiments Onion salt, garlic salt, seasoned salt, table salt, and sea salt. Worcestershire sauce. Tartar sauce. Barbecue sauce. Teriyaki sauce. Soy sauce, including reduced-sodium soy sauce. Steak sauce. Canned and packaged gravies. Fish sauce. Oyster sauce. Cocktail sauce. Store-bought horseradish. Ketchup.Mustard. Meat flavorings and tenderizers. Bouillon cubes. Hot sauces. Pre-made or packaged marinades. Pre-made or packaged taco seasonings. Relishes. Regular salad dressings. Other foods Salted popcorn and pretzels. The items listed above may not be all the foods and drinks you should avoid. Talk to a dietitian miriam more. Where to find more information National Heart, Lung, and Blood [place] (NHLBI): nhlbi.nih.gov [place] Heart Association (AHA): heart.org Academy of Nutrition and Dietetics: eatright.org National Kidney Foundation (NKF): kidney.org This information is not intended to replace advice given to you by your health care provider. Make sure you discuss any questions you have with your health care provider. Document Revised: 04/21/2023 Document Reviewed: 04/21/2023 [employer] [place] Patient Education 2023 [employer]. 01/13/2024 10:31:58 Osteopenia Osteopenia Osteopenia is a loss of thickness (density) inside the bones. Another name for osteopenia is low bone mass. Mild osteopenia is a normal part of aging. It is not a disease, and it does not cause symptoms. However, if you have osteopenia and continue to lose bone mass, you could develop a condition that causes the bones to become thin and break more easily (osteoporosis). Osteoporosis can cause you to lose some height, have back pain, and have a stooped posture. Although osteopenia is not a disease, making changes to your lifestyle and diet can help to prevent osteopenia from developing into osteoporosis. What are the causes? Osteopenia is caused by loss of calcium in the bones. Bones are constantly changing. Old bone cellsare continually being replaced with new bone cells. This process builds new bone. The mineral calcium is needed to build new bone and maintain bone density. Bone density is usually highest around age 35. After that, most people's bodies cannot replace all the bone they have lost with new bone. What increases the risk? You are more likely to develop this condition if: You are older than age 50. You are a woman who went through menopause early. You have a long illness that keeps you in bed. You do not get enough exercise. You lack certain nutrients (malnutrition). You have an overactive thyroid gland (hyperthyroidism). You use products that contain nicotine or tobacco, such as cigarettes, e- cigarettes and chewing tobacco, or you drink a lot of alcohol. You are taking medicines that weaken the bones, such as steroids. What are the signs or symptoms? This condition does not cause any symptoms. You may have a slightly higher risk for bone breaks (fractures), so getting fractures more easily than normal may be an indication of osteopenia. How is this diagnosed? This condition may be diagnosed based on an X-ray exam that measures bone density (dual-energy X-ray absorptiometry, or DEXA). This test can measure bone density in your hips, spine, and wrists. Osteopenia has no symptoms, so this condition is usually diagnosed after a routine bone density screening test is done for osteoporosis. This routine screening is usually done for: Women who are age 65 or older. Men who are age 70 or older. If you have risk factors for osteopenia, you may have the screening test at an earlier age. How is this treated? Making dietary and lifestyle changes can lower your risk for osteoporosis. If you have severe osteopenia that is close to becoming osteoporosis, this condition can be treatedwith medicines and dietary supplements such as calcium and vitamin D. These supplements help to rebuild bone density. Follow these instructions at home: Eating and drinking Eat a diet that is high in calcium and vitamin D. Calcium is found in dairy products, beans, salmon, and leafy green vegetables like spinach and broccoli. Look for foods that have vitamin D and calcium added to them (fortified foods), such as orange juice, cereal, and bread. Lifestyle Do 30 minutes or more of a weight-bearing exercise every day, such as walking, jogging, or playing a sport. These types of exercises strengthen the bones. Do not use any products that contain nicotine or tobacco, such as cigarettes, e- cigarettes, and chewing tobacco. If you need help quitting, ask your health care provider. Do not drink alcohol if: ?Your health care provider tells you not to drink. ?You are , may be , or are planning to become . If you drink alcohol: ?Limit how much you use to: ?0 1 drink a day for women. ?0 2 drinks a day for men. ?Be aware of how much alcohol is in your drink. In the [place] one drink equals one 12 oz bottle of beer (355 mL), one 5 oz glass of wine (148 mL), or one 1 oz glass of hard liquor (44 mL). General instructions Take oquo-jfm-keazxvt and prescription medicines only as told by your health care provider. These include vitamins and supplements. Take precautions at home to lower your risk of falling, such as: ?Keeping rooms well-lit and free of clutter, such as cords. ?Installing safety rails on stairs. ?Using rubber mats in the bathroom or other areas that are often wet or slippery. Keep all follow-up visits. This is important. Contact a health care provider if: You have not had a bone density screening for osteoporosis and you are: ?A woman who is age 65 or older. ?A man who is age 70 or older. You are a postmenopausal woman who has not had a bone density screening for osteoporosis. You are older than age 50 and you want to know if you should have bone density screening for osteoporosis. Summary Osteopenia is a loss of thickness (density) inside the bones. Another name for osteopenia is low bone mass. Osteopenia is not a disease, but it may increase your risk for a condition that causes the bones tobecome thin and break more easily (osteoporosis). You may be at risk for osteopenia if you are older than age 50 or if you are a woman who went through early menopause. Osteopenia does not cause any symptoms, but it can be diagnosed with a bone density screening test. Dietary and lifestyle changes are the first treatment for osteopenia. These may lower your risk forosteoporosis. This information is not intended to replace advice given to you by your health care provider. Make sure you discuss any questions you have with your health care provider. Document Revised: 09/18/2020 Document Reviewed: 09/18/2020 [employer] [place] Patient Education 2023 [employer]. [facility] 09-16-2024 History of Present illness Narrative* Reji Richardson MD - 01/02/2024 2:45 PM EDT Images from the original note were not included. [facility] [place] [facility] Department of Cardiovascular Medicine SECTION OF CARDIAC PACING and ELECTROPHYSIOLOGY OUTPATIENT VISIT DATE January 02, 2024 OUTPATIENT VISIT TYPE NEW PRIMARY CARE PHYSICIAN: [place] [address] REFERRING PHYSICIAN: Shadi Loyd MD [address] [place] [address] [place] [id number] CHIEF COMPLAINT: AF HISTORY OF PRESENT ILLNESS/NURSING INTAKE NOTE: Ms. Gonzalez is a 68 year old female who presents today for atrial fibrillation. She has a history of HTN, HLD, KEREN (not using CPAP), atrial fibrillation (dx 03/2023), colon cancer, s/p surgery 2018 and chemotherapy 2019 and hx of splenic vein thrombosis. She was first diagnosed with new onset atrial fibrillation 03/2023 in the setting of hospital admission for COVID. Echo 04/03/2023 showed EF=55-60%. nurse monitoring 04/03/2023 did not show atrial fibrillation. Stress Test 04/2023 was negative for ischemia. Home sleep study 05/10/2023 showed moderate sleep apnea. She was given a CPAP but did not tolerate it and has not been using it. At follow up 10/2023 she reported episodes of atrial fibrillation. She reports she had 2 episodes (once in July and once in October) which lasted 6-8 hours. She reports having irregular heart beats, shortness of breath on exertion, and fatigue with the episodes. Her BP noted irregular beats with the episodes. She wore a follow up teletypesetter monitor 11/10/2023 whish did not show any atrial fibrillation, showed rare PACs. She was tried on Multaq but did not tolerate, due to vomiting, dizziness and near syncope. She was prescribed Flecainide in early November, but she did not start it. She denies chest pain or syncope. 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 PAST SURGICAL HISTORY Procedure Laterality Date CATARACT EXTRACTION HX Left 06/25/2015 CATARACT EXTRACTION W/ INTRAOCULAR LENS IMPLANT HX Right 05/05/2020 Dr Bloom EYE SURGERY HX Right 12/18/2020 Pars plana vitrectomy/EL/gas Right eye EYE SURGERY PROCEDURE DALK OS PAST SURGICAL HISTORY OF Left 10/26/2023 PPV/PFO/MP/EL/FAX/C3F8 for recurrent RRD with early PVR OS (10/26/23, Ludivina/Yovani) REPAIR RETINAL DETACHMENT SCLERAL BUCKLING Right 01/31/2018 SB (Scleral Buckle) VITRECTOMY MECHANICAL PARS PLANA 01/29/2014 PPV (Pars Plana Vitrectomy) OS SOCIAL HISTORY Social History Tobacco Use Smoking status: Never Smokeless tobacco: Never Vaping Use Vaping status: Never Used Substance Use Topics Alcohol use: No Drug use: No FAMILY HISTORY Problem Relation Age of Onset Diabetes Mother Hypertension Mother Cataract Mother Thyroid Father Heart Father Cataract Father Detached Retina Father No Ocular Disease Other No Ocular Disease Sister No Ocular Disease Brother No Ocular Disease Maternal Grandmother No Ocular Disease Maternal Grandfather No Ocular Disease Paternal Grandmother No Ocular Disease Paternal Grandfather ALLERGIES: ALLERGIES No Known Allergies MEDICATIONS: metoprolol succinate ER (TOPROL XL) 25 mg 24 hr tablet Take 1 tablet by mouth every afternoon. apixaban (ELIQUIS) 5 mg tab(s) Take 1 tablet by mouth two times a day. lisinopril (ZESTRIL) 5 mg tablet Take 5 mg by mouth once daily. betamethasone dipropionate 0.05 % ointment Apply to affected area. prn aspirin, enteric coated (ASPIRIN, ENTERIC COATED) 81 mg EC tablet Take 81 mg by mouth. atorvastatin (LIPITOR) 20 mg tablet Take 20 mg by mouth. escitalopram oxalate (LEXAPRO) 10 mg tablet Take 10 mg by mouth once daily. LORazepam (ATIVAN) 0.5 mg Take 1 tablet by mouth three times daily as needed. flecainide (TAMBOCOR) 50 mg tablet Take 50 mg by mouth two times a day. (Patient not taking: Reported on 01/02/2024) ofloxacin (OCUFLOX) 0.3 % ophthalmic solution Use 1 Drop in the left eye four times daily. (Patientnot taking: Reported on 11/25/2023) prednisoLONE acetate (PRED FORTE) 1 % ophthalmic suspension Use 1 Drop in the left eye four times daily. (Patient not taking: Reported on 11/25/2023) REVIEW OF SYSTEMS: General, constitutional: Weight loss or gain- No, Fever or chills-No, Weakness- No, Trouble sleeping-No. Head, Eyes, Ears, Mouth: Headache, head injury-No, Glasses or contact lenses- yes, Pain-No, Impairedvision-No, Decreased hearing-yes, Ringing in ears-yes, Nose bleeds-No, Dental difficulties-No, Bleeding gums-No, Dentures-No. Neck: Swelling-No, Pain-No, Stiffness-No. Respiratory: Cough-No, Spitting up blood-No, Shortness of breath-No, Wheezing or asthma-No. Musculoskeletal: Muscle or joint pain or stiffness-No, Joint swelling-No. Gastrointestinal: Difficulty swallowing-No, Heartburn-No, Change in bowel habits-yes, Blood in stool, Dark black stools-No. Neurological/Psychiatric: Weakness, paralysis-No, Numbness-No, Tingling-No, Tremor-No, Nervousness or anxiety-No, Depressed mood-No, Memory loss-No. Skin: Rash-No, Itching-No. Hematological: Easy bruising-No, Easy bleeding-No. Endocrine: Heat or cold intolerance-No, Excessive sweating-No, Frequent urination-No, Frequent thirst-No. Tati Vogel RN PHYSICAL EXAMINATION: BP 147/81 Pulse 83 Ht 165.1 cm (5' 5 ) Wt 95.2 kg (209 lb 12.8 oz) BMI 34.91 kg/m General: Well appearing, in no acute distress, speaking in complete sentences. Skin: No clubbing, no cyanosis. Neck: no jugular venous distention, Lungs: Clear to auscultation bilaterally, no wheezing or rhonchi. Heart: Regular rhythm, PMI not displaced, S1, S2 normal, no S3, no S4, no heaves, no rub and no murmur. Abdomen: Soft, nontender, bowel sounds normal, no palpable organomegaly, no bruits. Extremities: No peripheral edema . Grade 2/4 distal pulses bilaterally. Neuro: Oriented to person, place and time, alert, cooperative, gait coordinated. CARDIOVASCULAR MEDICINE TESTING: Today's EKG - sinus rhythm, 77 bpm, 1st degree AV delay (WY~240ms), borderline L axis deviation. Outside Testing Embedded Software Test Engineer 11/10/2023 6 days and 21 hours recorded. Baseline rhythm is sinus with an average heart rate of 60 bpm, ranging between 39 and 114 bpm. No significant tachycardia, severe bradycardia or pauses. Rare isolated PACs noted. Overall fairly unremarkable study. EKG 11/01/2023 NM Myocardial Perfusion 05/04/2023 Resting ECG: The ECG shows sinus tachycardia. Resting ECG shows no ST-segment deviation. Stress Test: A pharmacological stress test was performed using lexiscan. The patient reported dizziness during the stress test. The patient reached the end of the protocol. Blood pressure demonstrated a normal response and heart rate demonstrated a normal response to stress. The patient's heart rate recovery was normal. Stress ECG: The ECG was negative for ischemia. Perfusion Comments: Prone images were obtained. Prone imaging was helpful in correcting soft tissue attenuation. LV perfusion is probably abnormal. There is no evidence of inducible ischemia. Stress Combined Conclusion: The study is negative for myocardial ischemia. Findings suggest a low risk of cardiac events. Stress Function: Left ventricular function post-stress is normal. Post-stress ejection fraction is 70%. The stress end diastolic cavity size is normal. Perfusion Conclusion: There is no evidence of transient ischemic dilation (TID). TID ratio is 1.06. Embedded Software Test Engineer 03/202304/03/2023- wore for 6 days 18 hours. - Predominant rhythm: NSR - 1 AV Block - Atrial Tachycardia (AT) 1 episode, 3 beats @ Avg 126 bpm up to 163 bpm - Pauses 4 up to 4.1 seconds - AV Block, 2 Type I, 2:1 conduction High-grade was present - PAC <0.1 % - PVC <0.1 % Echo 04/04/2023 Left Ventricle: Normal left ventricular systolic function with a visually estimated EF of 55 - 60%. Left ventricle size is normal. Mildly increased wall thickness. Normal wall motion. Grade I diastolic dysfunction with normal LAP. Mitral Valve: Mild regurgitation. EKG 04/03/2023 IMPRESSION: Ms. Gonzalez is a 68 year old female with a history of HTN, HLD, KEREN (not using CPAP), atrial fibrillation (dx 03/2023), colon cancer, s/p surgery 2018 and chemotherapy 2019 and hx of splenic vein thrombosis. Her AF burden appears to be relatively modest (3 suspect AF events over the course of ~9 months; all self-terminating within a few hours). We reviewed her management options going forward - the include conservative management only vs AAD therapy (flecainide vs dofetilide) vs catheter ablation. We discussed the logistics/risks/benefits of each strategy and all questions were answered. The patient will discuss this further with her providers locally. She will remain on Eliquis 5mg PO BID. PLAN AND RECOMMENDATIONS: -See above. -Continue to follow-up locally. -Follow-up with me on an as-needed basis. Reji Richardson MD I personally interviewed, confirmed and edited the above information as obtained by others. CONTACT INFORMATION: Reji Richardson MD, PHD Medical Decision Making: Problems: Moderate: New problem with uncertain prognosis Data: Unique source(s) for external note(s) reviewed: 1 Unique test result(s) reviewed: 3+ Risk: Moderate: Drug management and Moderate risk from testing/treatment Medical Decision Making Level: 4 - Moderate documented in this encounterOhio[facility] NoteHNO ID: [id number] Author: REJI RICHARDSON MD Service: ? Author Type: Physician Type: Progress Notes Filed: 01/02/2024 15:36 Note Text: [facility] [place] [facility] Department of Cardiovascular Medicine SECTION OF CARDIAC PACING and ELECTROPHYSIOLOGY OUTPATIENT VISIT DATE January 02, 2024 OUTPATIENT VISIT TYPE NEW PRIMARY CARE PHYSICIAN: [place] [address] REFERRING PHYSICIAN: Shadi Loyd MD [address] [place] [address] [place] [id number] CHIEF COMPLAINT: AF HISTORY OF PRESENT ILLNESS/NURSING INTAKE NOTE: Ms. Gonzalez is a 68 year old female who presents today for atrial fibrillation. She has a history of HTN, HLD, KEREN (not using CPAP), atrial fibrillation (dx 03/2023), colon cancer, s/p surgery 2018 and chemotherapy 2019 and hx of splenic vein thrombosis. She was first diagnosed with new onset atrial fibrillation 03/2023 in the setting of hospital admission for COVID. Echo 04/03/2023 showed EF=55-60%. nurse monitoring 04/03/2023 did not show atrial fibrillation. Stress Test 04/2023 was negative for ischemia. Home sleep study 05/10/2023 showed moderate sleep apnea. She was given a CPAP but did not tolerate it and has not been using it. At follow up 10/2023 she reported episodes of atrial fibrillation. She reports she had 2 episodes (once in July and once in October) which lasted 6-8 hours. She reports having irregular heart beats, shortness of breath on exertion, and fatigue with the episodes. Her BP noted irregular beats with the episodes. She wore a follow up teletypesetter monitor 11/10/2023 whish did not show any atrial fibrillation, showed rare PACs. She was tried on Multaq but did not tolerate, due to vomiting, dizziness and near syncope. She was prescribed Flecainide in early November, but she did not start it. She denies chest pain or syncope. 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 PAST SURGICAL HISTORY Procedure Laterality Date CATARACT EXTRACTION HX Left 06/25/2015 CATARACT EXTRACTION W/ INTRAOCULAR LENS IMPLANT HX Right 05/05/2020 Dr Bloom EYE SURGERY HX Right 12/18/2020 Pars plana vitrectomy/EL/gas Right eye EYE SURGERY PROCEDURE DALK OS PAST SURGICAL HISTORY OF Left 10/26/2023 PPV/PFO/MP/EL/FAX/C3F8 for recurrent RRD with early PVR OS (10/26/23, Ludivina/Yovani) REPAIR RETINAL DETACHMENT SCLERAL BUCKLING Right 01/31/2018 SB (Scleral Buckle) VITRECTOMY MECHANICAL PARS PLANA 01/29/2014 PPV (Pars Plana Vitrectomy) OS SOCIAL HISTORY Social History Tobacco Use Smoking status: Never Smokeless tobacco: Never Vaping Use Vaping status: Never Used Substance Use Topics Alcohol use: No Drug use: No FAMILY HISTORY Problem Relation Age of Onset Diabetes Mother Hypertension Mother Cataract Mother Thyroid Father Heart Father Cataract Father Detached Retina Father No Ocular Disease Other No Ocular Disease Sister No Ocular Disease Brother No Ocular Disease Maternal Grandmother No Ocular Disease Maternal Grandfather No Ocular Disease Paternal Grandmother No Ocular Disease Paternal Grandfather ALLERGIES: ALLERGIES No Known Allergies MEDICATIONS: metoprolol succinate ER (TOPROL XL) 25 mg 24 hr tablet Take 1 tablet by mouth every afternoon. apixaban (ELIQUIS) 5 mg tab(s) Take 1 tablet by mouth two times a day. lisinopril (ZESTRIL) 5 mg tablet Take 5 mg by mouth once daily. betamethasone dipropionate 0.05 % ointment Apply to affected area. prn aspirin, enteric coated (ASPIRIN, ENTERIC COATED) 81 mg EC tablet Take 81 mg by mouth. atorvastatin (LIPITOR) 20 mg tablet Take 20 mg by mouth. escitalopram oxalate (LEXAPRO) 10 mg tablet Take 10 mg by mouth once daily. LORazepam (ATIVAN) 0.5 mg Take 1 tablet by mouth three times daily as needed. flecainide (TAMBOCOR) 50 mg tablet Take 50 mg by mouth two times a day. (Patient not taking: Reported on 01/02/2024) ofloxacin (OCUFLOX) 0.3 % ophthalmic solution Use 1 Drop in the left eye four times daily. (Patient not taking: Reported on 11/25/2023) prednisoLONE acetate (PRED FORTE) 1 % ophthalmic suspension Use 1 Drop in the left eye four times daily. (Patient not taking: Reported on 11/25/2023) REVIEW (more content not included)...[facility]09-06-2024 Telephone encounter Note* Telephone Encounter - Nupur De Leon - 12/23/2023 5:45 PM EDT Received faxed office notes. Scanned in the system and the shared drive Nupur SendTask., Admin [facility]09-06-2024 Miscellaneous Notes* Telephone Encounter - Nupur De Leon - 12/23/2023 5:45 PM EDT Received faxed office notes. Scanned in the system and the shared drive Nupur C., Admin documented in this encounterOhio[facility]08-09-2024 History of Present illness Narrative* Tati Arenas MD - 11/25/2023 12:30 PM EDT PHI: Stable since last visit in terms of vision, no pain. IMPRESSION: 68 year old Female POW#4 s/p PPV/PFO/MP/EL/FAX/C3F8 for recurrent RRD with early PVR OS (10/26/23, Ludivina/Yovani) -Retina attached, intraocular pressure good, no recurrent PVR currently PLAN: Discussed above with patient Atropine QHS OS - can stop PF daily OS - can stop after a week Return to clinic~ 2 months NEXT: Dilate both eyes, OCT both eyes, Fundus OU I have confirmed and edited as necessary the relevant ophthalmic history, ROS, and the neuro exam findings as obtained by others. I have seen and examined this patient. I have discussed the case and the management of this patient's care with the Resident and/or fellowif applicable. I also have reviewed and agree with the assessment and plan as stated above and agree with all of its relevant components. Tati Arenas MD, PhD Vitreoretinal Surgery & Ocular Inflammatory Diseases [facility] documented in this encounterOhiohealth [facility]08-09-2024 NoteHNO ID: [id number] Author: TATI ARENAS MD Service: ? Author Type: Physician Type: Progress Notes Filed: 11/30/2023 15:56 Note Text: PHI: Stable since last visit in terms of vision, no pain. IMPRESSION: 68 year old Female POW#4 s/p PPV/PFO/MP/EL/FAX/C3F8 for late recurrent RRD with early PVR OS (10/26/23, Ludivina/Yovani) -Retina attached, intraocular pressure good, no recurrent PVR currently PLAN: Discussed above with patient Atropine QHS OS - can stop PF daily OS - can stop after a week Altitude restrictions and laying on left side or either side at night discussed with patient Return to clinic~ 2 months then back with Dr. Isaacs and Dr. bloom NEXT: Dilate both eyes, OCT both eyes, Fundus OU I have confirmed and edited as necessary the relevant ophthalmic history, ROS, and the neuro exam findings as obtained by others. I have seen and examined this patient. I have discussed the case and the management of this patient's care with the Resident and/or fellow if applicable. I also have reviewed and agree with the assessment and plan as stated above and agree with all of its relevant components. Tati Arenas MD, PhD Vitreoretinal Surgery AND Ocular Inflammatory Diseases [facility]07-24-2024 Telephone encounter Note* Telephone Encounter - Rocío Shafer - 11/09/2023 3:11 PM EDT Patient: Jacky Gonzalez Date of : 1955 Patient phone number: [phone] Referring Provider for the encounter: Electrophysiology Requesting Provider: Shadi Loyd MD Reason for requesting visit (RFV/signs and symptoms/diagnosis): Paroxysmal Atrial Fibrillation, abnormal ECG, Dyslipidemia, Primary Hypertension, KEREN, Goiter, Chronic anticoagulation Person calling: caregiver: Nahun Return call to: caregiver: nahun Medical Records/Insurance Card scanned into iFit: No Comments: none [facility]07-24-2024 Miscellaneous Notes* Telephone Encounter - Rocío Shafer - 11/09/2023 3:11 PM EDT Patient: Jacky Gonzalez Date of : 1955 Patient phone number: [phone] Referring Provider for the encounter: Electrophysiology Requesting Provider: Shadi Loyd MD Reason for requesting visit (RFV/signs and symptoms/diagnosis): Paroxysmal Atrial Fibrillation, abnormal ECG, Dyslipidemia, Primary Hypertension, KEREN, Goiter, Chronic anticoagulation Person calling: caregiver: Hollishever Return call to: caregiver: nahun Medical Records/Insurance Card scanned into iFit: No Comments: none documented in this encounterOhio[facility]07-23-2024 Instructions* Patient Instructions* Tati Arenas MD - 11/08/2023 2:27 PM EDT Drop instructions in the operative eye: Decrease prednisolone drops (white or pink cap) to 3x/day x 1 week, then 2x/day x 1 week, then oncea day x 1 week, then stop . Decrease atropine (structured cabling technician) to once at night x 3 weeks then stop Stop ofloxacin (sheikh cap) Stay off of your back Sleep on left side (or face down or right side down) at night Don't travel up to altitudes documented in this encounterOhio[facility]07-23-2024 NoteHNO ID: [id number] Author: TATI ARENAS MD Service: ? Author Type: Physician Type: Progress Notes Filed: 11/08/2023 14:28 Note Text: POW#1 s/p PPV/PFO/MP/EL/FAX/C3F8 for recurrent RRD with early PVR OS (10/26/23, Ludivina/Yovani) Retina attached, intraocular pressure good, no recurrent PVR currently PLAN: Discussed above with patient Decrease prednisolone drops (white or pink cap) to 3x/day x 1 week, then 2x/day x 1 week, then once a day x 1 week, then stop . Decrease atropine (structured cabling technician) to once at night x 3 weeks then stop Stop ofloxacin (sheikh cap) Stay off of your back Sleep on left side (or face down or right side down) at night I have confirmed and edited as necessary the relevant ophthalmic history, ROS, and the neuro exam findings as obtained by others. I have seen and examined this patient. I have discussed the case and the management of this patient's care with the Resident and/or fellow if applicable. I also have reviewed and agree with the assessment and plan as stated above and agree with all of its relevant components. Tati Arenas MD, PhD Vitreoretinal Surgery AND Ocular Inflammatory Diseases [facility]07-23-2024 History of Present illness Narrative* Tati Arenas MD - 11/08/2023 2:21 PM EDT POW#1 s/p PPV/PFO/MP/EL/FAX/C3F8 for recurrent RRD with early PVR OS (10/26/23, Ludivina/Yovani) Retina attached, intraocular pressure good, no recurrent PVR currently PLAN: Discussed above with patient Decrease prednisolone drops (white or pink cap) to 3x/day x 1 week, then 2x/day x 1 week, then oncea day x 1 week, then stop . Decrease atropine (structured cabling technician) to once at night x 3 weeks then stop Stop ofloxacin (sheikh cap) Stay off of your back Sleep on left side (or face down or right side down) at night I have confirmed and edited as necessary the relevant ophthalmic history, ROS, and the neuro exam findings as obtained by others. I have seen and examined this patient. I have discussed the case and the management of this patient's care with the Resident and/or fellowif applicable. I also have reviewed and agree with the assessment and plan as stated above and agree with all of its relevant components. Tati Arenas MD, PhD Vitreoretinal Surgery & Ocular Inflammatory Diseases [facility] documented in this encounterOhiohealth [facility]07-21-2024 Hospital Discharge instructions Patient Education 11/06/2023 13:14:10 Mediterranean Diet Mediterranean Diet A Mediterranean diet refers to food and lifestyle choices that are based on the traditions of countries located on the [place] Sea. It focuses on eating more fruits, vegetables, whole grains, beans, nuts, seeds, and heart-healthy fats, and eating less dairy, meat, eggs, and processed foods with added sugar, salt, and fat. This way of eating has been shown to help prevent certain conditions and improve outcomes for people who have chronic diseases, like kidney disease and heart disease. What are tips for following this plan? Reading food labels Check the serving size of packaged foods. For foods such as rice and pasta, the serving size refersto the amount of cooked product, not dry. Check the total fat in packaged foods. Avoid foods that have saturated fat or trans fats. Check the ingredient list for added sugars, such as corn syrup. Shopping Buy a variety of foods that offer a balanced diet, including: ?Fresh fruits and vegetables (produce). ?Grains, beans, nuts, and seeds. Some of these may be available in unpackaged forms or large amounts (in bulk). ?Fresh seafood. ?Poultry and eggs. ?Low-fat dairy products. Buy whole ingredients instead of prepackaged foods. Buy fresh fruits and vegetables in-season from local [employer] markets. Buy plain frozen fruits and vegetables. If you do not have access to quality fresh seafood, buy precooked frozen shrimp or canned fish, such as tuna, salmon, or sardines. Stock your pantry so you always have certain foods on hand, such as olive oil, canned tuna, canned tomatoes, rice, pasta, and beans. Cooking Cook foods with extra-virgin olive oil instead of using butter or other vegetable oils. Have meat as a side dish, and have vegetables or grains as your main dish. This means having meat in small portions or adding small amounts of meat to foods like pasta or stew. Use beans or vegetables instead of meat in common dishes like chili or lasagna. Naranja with different cooking methods. Try roasting, broiling, steaming, and saut ing vegetables. Add frozen vegetables to soups, stews, pasta, or rice. Add nuts or seeds for added healthy fats and plant protein at each meal. You can add these to yogurt, salads, or vegetable dishes. Marinate fish or vegetables using olive oil, lemon juice, garlic, and fresh herbs. Meal planning Plan to eat one vegetarian meal one day each week. Try to work up to two vegetarian meals, if possible. Eat seafood two or more times a week. Have healthy snacks readily available, such as: ?Vegetable sticks with hummus. ?Serbian yogurt. ?Fruit and nut trail mix. Eat balanced meals throughout the week. This includes: ?Fruit: 2 3 servings a day. ?Vegetables: 4 5 servings a day. ?Low-fat dairy: 2 servings a day. ?Fish, poultry, or lean meat: 1 serving a day. ?Beans and legumes: 2 or more servings a week. ?Nuts and seeds: 1 2 servings a day. ?Whole grains: 6 8 servings a day. ?Extra-virgin olive oil: 3 4 servings a day. Limit red meat and sweets to only a few servings a month. Lifestyle Cook and eat meals together with your family, when possible. Drink enough fluid to keep your urine pale yellow. Be physically active every day. This includes: ?Aerobic exercise like running or swimming. ?Leisure activities like gardening, walking, or housework. Get 7 8 hours of sleep each night. If recommended by your health care provider, drink red wine in moderation. This means 1 glass a dayfor non women and 2 glasses a day for men. A glass of wine equals 5 oz (150 mL). What foods should I eat? Fruits Apples. Apricots. Avocado. Berries. Bananas. Cherries. Dates. Figs. Grapes. Silvia. Melon. Oranges.Peaches. Plums. Pomegranate. Vegetables Artichokes. Beets. Broccoli. Cabbage. Carrots. Eggplant. Green beans. Chard. Kale. Spinach. Onions.Leeks. Peas. Squash. Tomatoes. Peppers. Radishes. Grains Whole-grain pasta. Brown rice. Bulgur wheat. Polenta. Couscous. Whole-wheat bread. Oatmeal. Quinoa. Meats and other proteins Beans. Almonds. [place] seeds. [place] nuts. Peanuts. Cod. [place]. Scallops. Shrimp. Tuna. Tilapia. Clams. Oysters. Eggs. Poultry without skin. Dairy Low-fat milk. Cheese. Serbian yogurt. Fats and oils Extra-virgin olive oil. Avocado oil. Grapeseed oil. Beverages Water. Red wine. Herbal tea. Sweets and desserts Serbian yogurt with honey. Baked apples. Poached pears. [place] mix. Seasonings and condiments Basil. Cilantro. Coriander. Cumin. Mint. Parsley. Paul. Michelle. Tarragon. Garlic. Oregano. Thyme.Pepper. Balsamic vinegar. Tahini. Hummus. Tomato sauce. Olives. Mushrooms. The items listed above may not be a complete list of foods and beverages you can eat. Contact a dietitian for more information. What foods should I limit? This is a list of foods that should be eaten rarely or only on special occasions. Fruits Fruit canned in syrup. Vegetables Deep-fried potatoes (romansh fries). Grains Prepackaged pasta or rice dishes. Prepackaged cereal with added sugar. Prepackaged snacks with added sugar. Meats and other proteins Beef. Pork. [place]. Poultry with skin. Hot dogs. [place]. Dairy Ice cream. Sour cream. Whole milk. Fats and oils Butter. Canola oil. Vegetable oil. Beef fat (tallow). Lard. Beverages Juice. Sugar-sweetened soft drinks. Beer. Liquor and spirits. Sweets and desserts Cookies. Cakes. Pies. Candy. Seasonings and condiments Mayonnaise. Pre-made sauces and marinades. The items listed above may not be a complete list of foods and beverages you should limit. Contact a dietitian for more information. Summary The Mediterranean diet includes both food and lifestyle choices. Eat a variety of fresh fruits and vegetables, beans, nuts, seeds, and whole grains. Limit the amount of red meat and sweets that you eat. If recommended by your health care provider, drink red wine in moderation. This means 1 glass a dayfor non women and 2 glasses a day for men. A glass of wine equals 5 oz (150 mL). This information is not intended to replace advice given to you by your health care provider. Make sure you discuss any questions you have with your health care provider. Document Revised: 05/09/2020 Document Reviewed: 03/06/2020 [employer] [place] Patient Education 2022 [employer]. 11/06/2023 13:14:09 Hypertension, Adult Hypertension, Adult High blood pressure (hypertension) is when the force of blood pumping through the arteries is too strong. The arteries are the blood vessels that carry blood from the heart throughout the body. Hypertension forces the heart to work harder to pump blood and may cause arteries to become narrow or stiff. Untreated or uncontrolled hypertension can lead to a heart attack, heart failure, a stroke, kidney disease, and other problems. A blood pressure reading consists of a higher number over a lower number. Ideally, your blood pressure should be below 120/80. The first ( top ) number is called the systolic pressure. It is a measure of the pressure in your arteries as your heart beats. The second ( bottom ) number is called the diastolic pressure. It is a measure of the pressure in your arteries as the heart relaxes. What are the causes? The exact cause of this condition is not known. There are some conditions that result in high bloodpressure. What increases the risk? Certain factors may make you more likely to develop high blood pressure. Some of these risk factorsare under your control, including: Smoking. Not getting enough exercise or physical activity. Being overweight. Having too much fat, sugar, calories, or salt (sodium) in your diet. Drinking too much alcohol. Other risk factors include: Having a personal history of heart disease, diabetes, high cholesterol, or kidney disease. Stress. Having a family history of high blood pressure and high cholesterol. Having obstructive sleep apnea. Age. The risk increases with age. What are the signs or symptoms? High blood pressure may not cause symptoms. Very high blood pressure (hypertensive crisis) may cause: Headache. Fast or irregular heartbeats (palpitations). Shortness of breath. Nosebleed. Nausea and vomiting. Vision changes. Severe chest pain, dizziness, and seizures. How is this diagnosed? This condition is diagnosed by measuring your blood pressure while you are seated, with your arm resting on a flat surface, your legs uncrossed, and your feet flat on the floor. The cuff of the bloodpressure monitor will be placed directly against the skin of your upper arm at the level of your heart. Blood pressure should be measured at least twice using the same arm. Certain conditions can cause a difference in blood pressure between your right and left arms. If you have a high blood pressure reading during one visit or you have normal blood pressure with other risk factors, you may be asked to: Return on a different day to have your blood pressure checked again. Monitor your blood pressure at home for 1 week or longer. If you are diagnosed with hypertension, you may have other blood or imaging tests to help your health care provider understand your overall risk for other conditions. How is this treated? This condition is treated by making healthy lifestyle changes, such as eating healthy foods, exercising more, and reducing your alcohol intake. You may be referred for counseling on a healthy diet and physical activity. Your health care provider may prescribe medicine if lifestyle changes are not enough to get your blood pressure under control and if: Your systolic blood pressure is above 130. Your diastolic blood pressure is above 80. Your personal target blood pressure may vary depending on your medical conditions, your age, and other factors. Follow these instructions at home: Eating and drinking Eat a diet that is high in fiber and potassium, and low in sodium, added sugar, and fat. An exampleof this eating plan is called the DASH diet. DASH stands for Dietary Approaches to Stop Hypertension. To eat this way: ?Eat plenty of fresh fruits and vegetables. Try to fill one half of your plate at each meal with fruits and vegetables. ?Eat whole grains, such as whole-wheat pasta, brown rice, or whole-grain bread. Fill about one fourth of your plate with whole grains. ?Eat or drink low-fat dairy products, such as skim milk or low-fat yogurt. ?Avoid fatty cuts of meat, processed or cured meats, and poultry with skin. Fill about one fourth of your plate with lean proteins, such as fish, chicken without skin, beans, eggs, or tofu. ?Avoid pre-made and processed foods. These tend to be higher in sodium, added sugar, and fat. Reduce your daily sodium intake. Many people with hypertension should eat less than 1,500 mg of sodium a day. Do not drink alcohol if: ?Your health care provider tells you not to drink. ?You are , may be , or are planning to become . If you drink alcohol: ?Limit how much you have to: ?0 1 drink a day for women. ?0 2 drinks a day for men. ?Know how much alcohol is in your drink. In the [place] one drink equals one 12 oz bottle of beer (355 mL), one 5 oz glass of wine (148 mL), or one 1 oz glass of hard liquor (44 mL). Lifestyle Work with your health care provider to maintain a healthy body weight or to lose weight. Ask what an ideal weight is for you. Get at least 30 minutes of exercise that causes your heart to beat faster (aerobic exercise) most days of the week. Activities may include walking, swimming, or biking. Include exercise to strengthen your muscles (resistance exercise), such as Pilates or lifting weights, as part of your weekly exercise routine. Try to do these types of exercises for 30 minutes at least 3 days a week. Do not use any products that contain nicotine or tobacco. These products include cigarettes, chewing tobacco, and vaping devices, such as e-cigarettes. If you need help quitting, ask your health careprovider. Monitor your blood pressure at home as told by your health care provider. Keep all follow-up visits. This is important. Medicines Take bkkn-fds-thayidz and prescription medicines only as told by your health care provider. Follow directions carefully. Blood pressure medicines must be taken as prescribed. Do not skip doses of blood pressure medicine. Doing this puts you at risk for problems and can makethe medicine less effective. Ask your health care provider about side effects or reactions to medicines that you should watch for. Contact a health care provider if you: Think you are having a reaction to a medicine you are taking. Have headaches that keep coming back (recurring). Feel dizzy. Have swelling in your ankles. Have trouble with your vision. Get help right away if you: Develop a severe headache or confusion. Have unusual weakness or numbness. Feel faint. Have severe pain in your chest or abdomen. Vomit repeatedly. Have trouble breathing. These symptoms may be an emergency. Get help right away. Call 911. Do not wait to see if the symptoms will go away. Do not drive yourself to the hospital. Summary Hypertension is when the force of blood pumping through your arteries is too strong. If this condition is not controlled, it may put you at risk for serious complications. Your personal target blood pressure may vary depending on your medical conditions, your age, and other factors. For most people, a normal blood pressure is less than 120/80. Hypertension is treated with lifestyle changes, medicines, or a combination of both. Lifestyle changes include losing weight, eating a healthy, low-sodium diet, exercising more, and limiting alcohol. This information is not intended to replace advice given to you by your health care provider. Make sure you discuss any questions you have with your health care provider. Document Revised: 02/09/2022 Document Reviewed: 02/09/2022 [employer] [place] Patient Education 2022 [employer]. 11/06/2023 13:14:08 High Cholesterol High Cholesterol High cholesterol is a condition in which the blood has high levels of a white, waxy substance similar to fat (cholesterol). The liver makes all the cholesterol that the body needs. The human body needs small amounts of cholesterol to help build cells. A person gets extra or excess cholesterol from the food that he or she eats. The blood carries cholesterol from the liver to the rest of the body. If you have high cholesterol,deposits (plaques) may build up on the chaudhari of your arteries. Arteries are the blood vessels that carry blood away from your heart. These plaques make the arteries narrow and stiff. Cholesterol plaques increase your risk for heart attack and stroke. Work with your health care provider to keep your cholesterol levels in a healthy range. What increases the risk? The following factors may make you more likely to develop this condition: Eating foods that are high in animal fat (saturated fat) or cholesterol. Being overweight. Not getting enough exercise. A family history of high cholesterol (familial hypercholesterolemia). Use of tobacco products. Having diabetes. What are the signs or symptoms? In most cases, high cholesterol does not usually cause any symptoms. In severe cases, very high cholesterol levels can cause: Fatty bumps under the skin (xanthomas). A white or berry ring around the black center (pupil) of the eye. How is this diagnosed? This condition may be diagnosed based on the results of a blood test. If you are older than 20 years of age, your health care provider may check your cholesterol levels every 4 6 years. You may be checked more often if you have high cholesterol or other risk factors for heart disease. The blood test for cholesterol measures: Bad cholesterol, or LDL cholesterol. This is the main type of cholesterol that causes heart disease. The desired level is less than 100 mg/dL (2.59 mmol/L). Good cholesterol, or HDL cholesterol. HDL helps protect against heart disease by cleaning the arteries and carrying the LDL to the liver for processing. The desired level for HDL is 60 mg/dL (1.55 mmol/L) or higher. Triglycerides. These are fats that your body can store or burn for energy. The desired level is less than 150 mg/dL (1.69 mmol/L). Total cholesterol. This measures the total amount of cholesterol in your blood and includes LDL, HDL, and triglycerides. The desired level is less than 200 mg/dL (5.17 mmol/L). How is this treated? Treatment for high cholesterol starts with lifestyle changes, such as diet and exercise. Diet changes. You may be asked to eat foods that have more fiber and less saturated fats or added sugar. Lifestyle changes. These may include regular exercise, maintaining a healthy weight, and quitting use of tobacco products. Medicines. These are given when diet and lifestyle changes have not worked. You may be prescribed astatin medicine to help lower your cholesterol levels. Follow these instructions at home: Eating and drinking Eat a healthy, balanced diet. This diet includes: ? Daily servings of a variety of fresh, frozen, or canned fruits and vegetables. ?Daily servings of whole grain foods that are rich in fiber. ?Foods that are low in saturated fats and trans fats. These include poultry and fish without skin, lean cuts of meat, and low-fat dairy products. ?A variety of fish, especially oily fish that contain omega-3 fatty acids. Aim to eat fish at least2 times a week. Avoid foods and drinks that have added sugar. Use healthy cooking methods, such as roasting, grilling, broiling, baking, poaching, steaming, and stir-frying. Do not muniz your food except for stir-frying. If you drink alcohol: ?Limit how much you have to: ?0 1 drink a day for women who are not . ?0 2 drinks a day for men. ?Know how much alcohol is in a drink. In the [place] one drink equals one 12 oz bottle of beer (355 mL), one 5 oz glass of wine (148 mL), or one 1 oz glass of hard liquor (44 mL). Lifestyle Get regular exercise. Aim to exercise for a total of 150 minutes a week. Increase your activity level by doing activities such as gardening, walking, and taking the stairs. Do not use any products that contain nicotine or tobacco. These products include cigarettes, chewing tobacco, and vaping devices, such as e-cigarettes. If you need help quitting, ask your health careprovider. General instructions Take tujf-mpk-dhuajig and prescription medicines only as told by your health care provider. Keep all follow-up visits. This is important. Where to find more information [employer]: www.heart.org National Heart, Lung, and Blood [place]: www.nhlbi.nih.gov Contact a health care provider if: You have trouble achieving or maintaining a healthy diet or weight. You are starting an exercise program. You are unable to stop smoking. Get help right away if: You have chest pain. You have trouble breathing. You have discomfort or pain in your jaw, neck, back, shoulder, or arm. You have any symptoms of a stroke. BE FAST is an easy way to remember the main warning signs of astroke: ?B - Balance. Signs are dizziness, sudden trouble walking, or loss of balance. ?E - Eyes. Signs are trouble seeing or a sudden change in vision. ?F - Face. Signs are sudden weakness or numbness of the face, or the face or eyelid drooping on oneside. ?A - Arms. Signs are weakness or numbness in an arm. This happens suddenly and usually on one side of the body. ?S - Speech. Signs are sudden trouble speaking, slurred speech, or trouble understanding what people say. ?T - Time. Time to call emergency services. Write down what time symptoms started. You have other signs of a stroke, such as: ?A sudden, severe headache with no known cause. ?Nausea or vomiting. ?Seizure. These symptoms may represent a serious problem that is an emergency. Do not wait to see if the symptoms will go away. Get medical help right away. Call your local emergency services (911 in the [place] Do not drive yourself to the hospital. Summary Cholesterol plaques increase your risk for heart attack and stroke. Work with your health care provider to keep your cholesterol levels in a healthy range. Eat a healthy, balanced diet, get regular exercise, and maintain a healthy weight. Do not use any products that contain nicotine or tobacco. These products include cigarettes, chewing tobacco, and vaping devices, such as e-cigarettes. Get help right away if you have any symptoms of a stroke. This information is not intended to replace advice given to you by your health care provider. Make sure you discuss any questions you have with your health care provider. Document Revised: 06/18/2021 Document Reviewed: 06/08/2021 [employer] [place] Patient Education 2022 [employer]. Follow Up Care 06/29/2023 11:40:16 With:Viral PARKER, GENERAL PURCHASING AGENT-RACQUET MAKER, Stacia Mcmahan Address: [address] [place] [id number] When:Within 4 Month(s) Comments:chronic care [facility] 07-11-2024 Instructions* Patient Instructions* Blaise Lopez MD - 10/27/2023 12:13 PM EDT Images from the original note were not included. Instructions After Vitreoretinal Surgery It is very important to follow these instructions after vitreoretinal eye surgery to ensure its success. KEEP PATCH ON UNTIL SEEN BY DOCTOR THE DAY AFTER SURGERY A responsible adult must drive you home after the surgery. You might feel well, but the medicationsgiven during the surgery might affect you for several hours. Do not drive, operate machinery, or participate in any activity that requires coordination or judgment for at least 24 hours after surgery. We recommend that a responsible adult stay with you for 24 hours after the surgery. Eye Protection - Please keep the eye patch in place until your postoperative appointment tomorrow. After that, you should wear the eye shield during the day for the first 2 weeks. You may wear your glasses/sunglasses during the day instead of the eye shield. Put the metal eye shield on at night, when face down or when laying down/sleeping. Pain-relieving medications - You may take acetaminophen to relieve pain. Follow the instructions onthe bottle. Do not use aspirin or products containing aspirin during the first month after surgery. Diet - If you feel sick to you stomach, drink only clear liquids. Clear liquids include: clear broth, tea, strained fruit juices, strained vegetable soup, black coffee, plain gelatin, and rudy domitila.Eat a regular meal when you do not feel sick. Do not drink alcoholic beverages for 24 hours after the surgery. Position after surgery - LEFT side down as much as possible (aim for at least 50 minutes out of every hour). Eye medications - Please use the Prednisolone acetate (pred forte, pink or white top) and ofloxacindrops (sheikh top) drops four times a day in the operated eye. Use atropine (red top) twice a day in the operated eye. Use the ointment in the eye only if it is feeling itchy, scratchy or has a foreign body sensation. Do not use the ointment if a bandage contact lens was placed in the eye. How to give yourself eye drops or ointment Wash your hands with soap and warm water. Dry them with a clean towel. If you are putting in your own eye medicine, lie down or use a mirror. Ask someone to check that you are getting the medicine in your eye. Look up to the ceiling with both eyes. Pull the lower lid of your eye down with one hand. Hold the medicine bottle or tube in your other hand. (If necessary, rest part of your hand on your forehead to keep it steady). Place a drop of medicine or a small amount of ointment inside your lower lid. The tip of the medicine bottle or tube should not touch your eye. Close your eyes for a minute after putting in the medicine. If you are prescribed both eye drops and eye ointment, use the eye drops first. If you have more than one eye medicine to put in your eyes, wait about 5 minutes after the first medicine before putting the second medicine. Avoid the following activities for 2 weeks after surgery: Bending Swimming Heavy lifting Working in addi places Strenuous exercise or activity Activities that might injure your eye Call your surgeon immediately if you experience: Increased or severe eye pain Bleeding from the eye Sudden decrease in vision or decreased ability to see light Discharge from the eye Any questions or problems Call your doctor immediately or go to the nearest emergency room if you experience: Nausea or vomiting that won't go away Chest pain Leg cramps A temperature above 101 F or 38.3 C Trouble breathing Contact Dr. Tati Arenas [phone] from 8am-5pm During non-business hours, please call [phone] or ext [phone] and ask for the eyedoctor business operations director. [facility] History of Present illness Narrative* Blaise Lopez MD - 10/27/2023 12:08 PM EDT POD#1 s/p PPV/PFO/MP/EL/FAX/C3F8 for recurrent RRD with early PVR OS (10/26/23, Ludivina/Yovani) - Doing well / IOP acceptable - Start pred forte and ofloxacin drops QID, atropine BID - Start ointment if having itchy/scratchy sensation - IOP drops: none - Positioning: left side down - Light activity recommended - wear glasses or shield at all times, shield at bedtime - RD/endophthalmitis/gas bubble precautions discussed - call for severe PHILIP - RV 11/08/23 as scheduled I have confirmed and edited as necessary the relevant ophthalmic history, ROS, and the neuro exam findings as obtained by others. I have seen and examined this patient. I have discussed the case and the management of this patient's care with the Resident/Fellow, if applicable. I also have reviewed and agree with the assessment and plan as stated above and agree with all of its relevant components. Blaise Lopez MD Vitreoretinal Surgery Fellow documented in this encounterOhio[facility] History and physical note * Teresa Maldonado, BRUNO.RACQUET MAKER - 10/26/2023 1:00 PM EDT HISTORY AND PHYSICAL EXAMINATION (IMPACT) SERVICE DATE: 10/26/2023 SERVICE TIME: 12:41 PM PRIMARY CARE PHYSICIAN: Gilma Her MD, MD CHIEF COMPLAINT/HISTORY OF PRESENT ILLNESS: Ms. Gonzalez is a 68 year old female referred to me for preoperative evaluation. My final recommendations will be communicated back to the requesting physician/surgeon by the way of the shared medical record. Referring Surgeon: Dr. Arenas Date of Surgery: 10/26/2023 Planned Surgery/Procedure: REPAIR RETINAL DETACHMENT 25G W/VITRECTOMY ANY METHOD/OS Indication for Planned Surgery / Procedure: 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, left Refer to Assessment section for details of any comorbidities. Patient is Able to Perform the Following Physical Activity: Walk a block or two on level ground (2.75 METs) Climb a flight of stairs or walk up a hill (5.50 METs) Patient denies any chest pain or undue shortness of breath with the above physical activity. Patient's functional class is I based on self-reported physical activity. Significant Anesthesia Considerations: None and PANIC ATTACK AND PASSED OUT IN THE PAST . 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 PAST SURGICAL HISTORY Procedure Laterality Date CATARACT EXTRACTION HX Left 06/25/2015 CATARACT EXTRACTION W/ INTRAOCULAR LENS IMPLANT HX Right 05/05/2020 Dr Bloom EYE SURGERY HX Right 12/18/2020 Pars plana vitrectomy/EL/gas Right eye EYE SURGERY PROCEDURE DALK OS REPAIR RETINAL DETACHMENT SCLERAL BUCKLING Right 01/31/2018 SB (Scleral Buckle) VITRECTOMY MECHANICAL PARS PLANA 01/29/14 PPV (Pars Plana Vitrectomy) OS FAMILY HISTORY Problem Relation Age of Onset Diabetes Mother Hypertension Mother Cataract Mother Thyroid Father Heart Father Cataract Father Detached Retina Father No Ocular Disease Other No Ocular Disease Sister No Ocular Disease Brother No Ocular Disease Maternal Grandmother No Ocular Disease Maternal Grandfather No Ocular Disease Paternal Grandmother No Ocular Disease Paternal Grandfather SOCIAL HISTORY Social History Tobacco Use Smoking status: Never Smokeless tobacco: Never Vaping Use Vaping Use: Never used Substance Use Topics Alcohol use: No Drug use: No MEDICATIONS/ALLERGIES Current Outpatient Medications Medication Sig Dispense Refill apixaban (ELIQUIS) 5 mg tab(s) Take 1 tablet by mouth two times a day. lisinopril (ZESTRIL) 5 mg tablet Take 5 mg by mouth once daily. prednisoLONE acetate (PRED FORTE) 1 % ophthalmic suspension Use 1 Drop in the left eye four times daily. (Patient taking differently: Use 1 Drop in the left eye two times a day.) 10 mL 0 betamethasone dipropionate 0.05 % ointment Apply to affected area. prn aspirin, enteric coated (ASPIRIN, ENTERIC COATED) 81 mg EC tablet Take 81 mg by mouth. atorvastatin (LIPITOR) 20 mg tablet Take 20 mg by mouth. escitalopram oxalate (LEXAPRO) 10 mg tablet Take 10 mg by mouth once daily. LORazepam (ATIVAN) 0.5 mg Take 1 tablet by mouth three times daily as needed. Current Facility-Administered Medications Medication Dose Route Frequency Provider Last Rate Last Admin tropicamide 1 % 1 Drop (MYDRIACYL) 1 Drop BOTH EYES As Directed Lata Paris MD 1 Drop at 10/26/23 0844 PHENYLephrine 2.5 % 1 Drop (AK-DILATE, MARY-SYNEPHRINE) 1 Drop BOTH EYES As Directed Lata Paris MD 1 Drop at 10/26/23 0844 fluorescein-benoxinate 0.3-0.4 % 1 Drop (FLURESS) 1 Drop BOTH EYES As Directed Lata Paris MD1 Drop at 10/26/23 0844 ALLERGIES No Known Allergies REVIEW OF SYSTEMS General: No weight loss, malaise or fevers. Neuro: No history of TIA's, stroke, S[employer]IST tumor, impaired sensorium, hemiplegia, paraplegia or quadriplegia. No neurological symptoms or problems. 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 Denies cough or wheeze. Cardiovascular: Hypertension requiring meds. Denies recent chest pain, palpitations or syncope. GI: No history of GI symptoms or problems. No history of esophageal varices, recent ascites, or ETOH greater than 2 drinks per day. : No history of UTI in past 6 weeks. No history of renal failure. Not currently on or requiring dialysis. No history of symptoms or problems. 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 Endocrine: No history of diabetes. Has not taken steroids within the past 30 days. No history of endocrinological symptoms or problems. Hematology: Chronic anti-coagulation / platelet meds (eliquis) Date medication stopped did not stop/urgent surgery Oncology: colon cancer in the past continues to follow with oncology. Psych: Depression-Lexapro. Skin: Negative for lesions, rash, and itching. PHYSICAL EXAM VITALS: BP 141/89 Pulse 79 Ht 5' 5 (1.65m) Wt 211 lb 11.2 oz (96.0kg) SpO2 95% BMI 35.23kg/(m^2). General: Alert and oriented, No acute distress, Healthy appearance Skin: Normal color, no rash, no lesions. HEENT: EOM, pupils equal, round and reactive. Cardiovascular: Normal S1 & S2, no rubs, murmurs or gallops. No JVD. Pulse regular. Lungs: Normal breath sounds, no wheezes or crackles. Abdomen: Soft, non-tender, no rigidity., No masses or organomegaly. Extremities: No deformity, no edema or tenderness, no joint swelling or clubbing. Neurological: Normal cognition and motor skills. Pulses: Carotid and radial pulses normal +2. Pedal pulses normal +2. ASSESSMENT Ms. Gonzalez is a 68 year old female referred to me for preoperative evaluation. Patient has the following medical comorbidities which might affect the perioperative course: I10 Primary hypertension Comment: elevated but component of anxiety regarding surgery. 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 -stress test 04/2023 showed no evidence of inducible ischemia E78.5 Dyslipidemia Comment: managed with atorvastatin -FH premature CAD in brother G47.33 Moderate sleep apnea Comment: home sleep study done 05/10/2023 -recently started using CPAP at night (waited for equipment) F41.9, F32.A Anxiety and depression Comment: Lexapro and lorazepam as needed Z85.038 History of colon cancer Comment: 2019 s/p hemicolectomy 11/2018 lymph nodes positive for malignancy and received chemotherapy completed in 2019 I82.890 History of splenic vein thrombosis Comment: 07/2019 completed 6 months of warfarin Patient's RCRI (Revised Cardiac Risk Index: CAD/CHF/Stroke or TIA/SCr>2/DM on Insulin/High Risk Surgery) score is 0 and is at low risk for major adverse cardiac events in the perioperative period. Diagnostic tests reviewed for today's visit: Most recent labs Stress Test: 04/2023 Narrative Resting ECG: The ECG shows sinus tachycardia. Resting ECG shows no ST-segment deviation. Stress Test: A pharmacological stress test was performed using lexiscan. The patient reported dizziness during the stress test. The patient reached the end of the protocol. Blood pressure demonstrated a normal response and heart rate demonstrated a normal response to stress. The patient's heart rate recovery was normal. Stress ECG: The ECG was negative for ischemia. Perfusion Comments: Prone images were obtained. Prone imaging was helpful in correcting soft tissue attenuation. LV perfusion is probably abnormal. There is no evidence of inducible ischemia. Stress Combined Conclusion: The study is negative for myocardial ischemia. Findings suggest a low risk of cardiac events. Stress Function: Left ventricular function post-stress is normal. Post-stress ejection fraction is 70%. The stress end diastolic cavity size is normal. Perfusion Conclusion: There is no evidence of transient ischemic dilation (TID). TID ratio is 1.06. All in Epic PLAN/RECOMMENDATIONS CARDIAC: Patient is at optimal cardiac condition for scheduled surgery / procedure. Continue the following medications uninterrupted in the perioperative period: PATIENT REPORTS SHE TOOK ELIQUIS AND ASPIRIN TODAY. PULMONARY: Patient is at optimal Pulmonary status for scheduled surgery / procedure. Patient is at increased risk for postoperative pulmonary complications. Suggest the following in the post-operative period: Minimize sedation/opioids as patient has KEREN Patient is optimally prepared for surgery. Patient Instructions: Patient already had instructions prior to visit with me today (URGENT SURGERY). I have discussed the above recommendations with the patient in detail, in luke and lay terms, and provided a written summary of instructions as needed. We have discussed that no surgery is without risk, but that the goal of preoperative assessment is to optimize that risk, and that was clearly understood by the patient. I have given ample opportunity for the patient to ask questions, and answered all questions to their stated satisfaction. SIGNATURE: Teresa Maldonado APRN.CNP PATIENT NAME: Jacky Gonzalez DATE: October 26, 2023 TIME: 12:41 PM [facility]07-10-2024 History and physical note* Teresa Maldonado APRN.CNP - 10/26/2023 1:00 PM EDT HISTORY AND PHYSICAL EXAMINATION (IMPACT) SERVICE DATE: 10/26/2023 SERVICE TIME: 12:41 PM PRIMARY CARE PHYSICIAN: Gilma Her MD, MD CHIEF COMPLAINT/HISTORY OF PRESENT ILLNESS: Ms. Gonzalez is a 68 year old female referred to me for preoperative evaluation. My final recommendations will be communicated back to the requesting physician/surgeon by the way of the shared medical record. Referring Surgeon: Dr. Arenas Date of Surgery: 10/26/2023 Planned Surgery/Procedure: REPAIR RETINAL DETACHMENT 25G W/VITRECTOMY ANY METHOD/OS Indication for Planned Surgery / Procedure: 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, left Refer to Assessment section for details of any comorbidities. Patient is Able to Perform the Following Physical Activity: Walk a block or two on level ground (2.75 METs) Climb a flight of stairs or walk up a hill (5.50 METs) Patient denies any chest pain or undue shortness of breath with the above physical activity. Patient's functional class is I based on self-reported physical activity. Significant Anesthesia Considerations: None and PANIC ATTACK AND PASSED OUT IN THE PAST . 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 PAST SURGICAL HISTORY Procedure Laterality Date CATARACT EXTRACTION HX Left 06/25/2015 CATARACT EXTRACTION W/ INTRAOCULAR LENS IMPLANT HX Right 05/05/2020 Dr Bloom EYE SURGERY HX Right 12/18/2020 Pars plana vitrectomy/EL/gas Right eye EYE SURGERY PROCEDURE DALK OS REPAIR RETINAL DETACHMENT SCLERAL BUCKLING Right 01/31/2018 SB (Scleral Buckle) VITRECTOMY MECHANICAL PARS PLANA 01/29/14 PPV (Pars Plana Vitrectomy) OS FAMILY HISTORY Problem Relation Age of Onset Diabetes Mother Hypertension Mother Cataract Mother Thyroid Father Heart Father Cataract Father Detached Retina Father No Ocular Disease Other No Ocular Disease Sister No Ocular Disease Brother No Ocular Disease Maternal Grandmother No Ocular Disease Maternal Grandfather No Ocular Disease Paternal Grandmother No Ocular Disease Paternal Grandfather SOCIAL HISTORY Social History Tobacco Use Smoking status: Never Smokeless tobacco: Never Vaping Use Vaping Use: Never used Substance Use Topics Alcohol use: No Drug use: No MEDICATIONS/ALLERGIES Current Outpatient Medications Medication Sig Dispense Refill apixaban (ELIQUIS) 5 mg tab(s) Take 1 tablet by mouth two times a day. lisinopril (ZESTRIL) 5 mg tablet Take 5 mg by mouth once daily. prednisoLONE acetate (PRED FORTE) 1 % ophthalmic suspension Use 1 Drop in the left eye four times daily. (Patient taking differently: Use 1 Drop in the left eye two times a day.) 10 mL 0 betamethasone dipropionate 0.05 % ointment Apply to affected area. prn aspirin, enteric coated (ASPIRIN, ENTERIC COATED) 81 mg EC tablet Take 81 mg by mouth. atorvastatin (LIPITOR) 20 mg tablet Take 20 mg by mouth. escitalopram oxalate (LEXAPRO) 10 mg tablet Take 10 mg by mouth once daily. LORazepam (ATIVAN) 0.5 mg Take 1 tablet by mouth three times daily as needed. Current Facility-Administered Medications Medication Dose Route Frequency Provider Last Rate Last Admin tropicamide 1 % 1 Drop (MYDRIACYL) 1 Drop BOTH EYES As Directed Lata Paris MD 1 Drop at 10/26/23 0844 PHENYLephrine 2.5 % 1 Drop (AK-DILATE, MARY-SYNEPHRINE) 1 Drop BOTH EYES As Directed Lata Paris MD 1 Drop at 10/26/23 0844 fluorescein-benoxinate 0.3-0.4 % 1 Drop (FLURESS) 1 Drop BOTH EYES As Directed Lata Paris MD1 Drop at 10/26/23 0844 ALLERGIES No Known Allergies REVIEW OF SYSTEMS General: No weight loss, malaise or fevers. Neuro: No history of TIA's, stroke, [employer]IST tumor, impaired sensorium, hemiplegia, paraplegia or quadriplegia. No neurological symptoms or problems. 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 Denies cough or wheeze. Cardiovascular: Hypertension requiring meds. Denies recent chest pain, palpitations or syncope. GI: No history of GI symptoms or problems. No history of esophageal varices, recent ascites, or ETOH greater than 2 drinks per day. : No history of UTI in past 6 weeks. No history of renal failure. Not currently on or requiring dialysis. No history of symptoms or problems. 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 Endocrine: No history of diabetes. Has not taken steroids within the past 30 days. No history of endocrinological symptoms or problems. Hematology: Chronic anti-coagulation / platelet meds (eliquis) Date medication stopped did not stop/urgent surgery Oncology: colon cancer in the past continues to follow with oncology. Psych: Depression-Lexapro. Skin: Negative for lesions, rash, and itching. PHYSICAL EXAM VITALS: BP 141/89 Pulse 79 Ht 5' 5 (1.65m) Wt 211 lb 11.2 oz (96.0kg) SpO2 95% BMI 35.23kg/(m^2). General: Alert and oriented, No acute distress, Healthy appearance Skin: Normal color, no rash, no lesions. HEENT: EOM, pupils equal, round and reactive. Cardiovascular: Normal S1 & S2, no rubs, murmurs or gallops. No JVD. Pulse regular. Lungs: Normal breath sounds, no wheezes or crackles. Abdomen: Soft, non-tender, no rigidity., No masses or organomegaly. Extremities: No deformity, no edema or tenderness, no joint swelling or clubbing. Neurological: Normal cognition and motor skills. Pulses: Carotid and radial pulses normal +2. Pedal pulses normal +2. ASSESSMENT Ms. Gonzalez is a 68 year old female referred to me for preoperative evaluation. Patient has the following medical comorbidities which might affect the perioperative course: I10 Primary hypertension Comment: elevated but component of anxiety regarding surgery. 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 -stress test 04/2023 showed no evidence of inducible ischemia E78.5 Dyslipidemia Comment: managed with atorvastatin -FH premature CAD in brother G47.33 Moderate sleep apnea Comment: home sleep study done 05/10/2023 -recently started using CPAP at night (waited for equipment) F41.9, F32.A Anxiety and depression Comment: Lexapro and lorazepam as needed Z85.038 History of colon cancer Comment: 2018 s/p hemicolectomy 11/2018 lymph nodes positive for malignancy and received chemotherapy completed in 2019 I82.890 History of splenic vein thrombosis Comment: 07/2019 completed 6 months of warfarin Patient's RCRI (Revised Cardiac Risk Index: CAD/CHF/Stroke or TIA/SCr>2/DM on Insulin/High Risk Surgery) score is 0 and is at low risk for major adverse cardiac events in the perioperative period. Diagnostic tests reviewed for today's visit: Most recent labs Stress Test: 04/2023 Narrative Resting ECG: The ECG shows sinus tachycardia. Resting ECG shows no ST-segment deviation. Stress Test: A pharmacological stress test was performed using lexiscan. The patient reported dizziness during the stress test. The patient reached the end of the protocol. Blood pressure demonstrated a normal response and heart rate demonstrated a normal response to stress. The patient's heart rate recovery was normal. Stress ECG: The ECG was negative for ischemia. Perfusion Comments: Prone images were obtained. Prone imaging was helpful in correcting soft tissue attenuation. LV perfusion is probably abnormal. There is no evidence of inducible ischemia. Stress Combined Conclusion: The study is negative for myocardial ischemia. Findings suggest a low risk of cardiac events. Stress Function: Left ventricular function post-stress is normal. Post-stress ejection fraction is 70%. The stress end diastolic cavity size is normal. Perfusion Conclusion: There is no evidence of transient ischemic dilation (TID). TID ratio is 1.06. All in Epic PLAN/RECOMMENDATIONS CARDIAC: Patient is at optimal cardiac condition for scheduled surgery / procedure. Continue the following medications uninterrupted in the perioperative period: PATIENT REPORTS SHE TOOK ELIQUIS AND ASPIRIN TODAY. PULMONARY: Patient is at optimal Pulmonary status for scheduled surgery / procedure. Patient is at increased risk for postoperative pulmonary complications. Suggest the following in the post-operative period: Minimize sedation/opioids as patient has KEREN Patient is optimally prepared for surgery. Patient Instructions: Patient already had instructions prior to visit with me today (URGENT SURGERY). I have discussed the above recommendations with the patient in detail, in luke and lay terms, and provided a written summary of instructions as needed. We have discussed that no surgery is without risk, but that the goal of preoperative assessment is to optimize that risk, and that was clearly understood by the patient. I have given ample opportunity for the patient to ask questions, and answered all questions to their stated satisfaction. SIGNATURE: Teresa Maldonado APRN.CNP PATIENT NAME: Jacky Gonzalez DATE: October 26, 2023 TIME: 12:41 PM documented in this encounterOhio[facility]07[facility] Nurse Note* Saranya Butterfield LPN - 10/26/2023 12:47 PM EDT Surgeon:Dr Arenas Type of surgery:REPAIR RETINAL DETACHMENT 25G W/VITRECTOMY ANY METHOD Laterality Anesthesia Op Region Left Monitored Anesthesia Care Eye Date of surgery:10/25 Identified patient by name and ?yes Pacemaker or ICD? Last pacemaker check: Reviewed medications?by provider [facility]07-10-2024 Nurse Note* Saranya Butterfield LPN - 10/26/2023 12:47 PM EDT Surgeon:Dr Arenas Type of surgery:REPAIR RETINAL DETACHMENT 25G W/VITRECTOMY ANY METHOD Laterality Anesthesia Op Region Left Monitored Anesthesia Care Eye Date of surgery:10/25 Identified patient by name and ?yes Pacemaker or ICD? Last pacemaker check: Reviewed medications?by provider documented in this encounterOhio[facility]07-[facility]-2024 Note* Addendum Note - Blaise Lopez MD - 10/26/2023 12:29 PM EDTAddended by: BLAISE LOPEZ on: 10/26/2023 12:29 PM Modules accepted: Orders [facility] Work Phone: 1(702) 448-875007-10-2024 Miscellaneous Notes* Addendum Note - Blaise Lopez MD - 10/26/2023 12:29 PM EDTAddended by: BLAISE LOPEZ on: 10/26/2023 12:29 PM Modules accepted: Orders documented in this encounterOhiohealth [facility]07-10-2024 NoteDate of Procedure 10/26/2023. [facility] Worker Information Telecom Manager: Christa Umaña. Start time: 9:06 AM. Stop time: 9:06 AM.[id number] NoteDate of Procedure 10/26/2023. [facility] Worker Information Telecom Manager: Christa Umaña. Start time: 9:06 AM. Stop time: 9:06 AM. Interpretation Left Eye Findings include Subretinal fluid. Interval Change Right Eye Stable. Left Eye Worse.[id number] History of Present illness Narrative* Jasper Banerjee MD - 10/26/2023 9:23 AM EDT SAME DAY ADD ON noticing stationary black spot in vision left eye since 10/20/23. No new flashes of light or redness. 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 Patricia. Last seen her in 2018 Course: - Started with pain, blurriness and floaters around 2008 - Treated with oral steroids which improved her inflammation - Tried MTX but did not help - Has been on Cellcept from around [id number]. Discontinued as she did not have flare ups and couldn't get to be seen at [facility] due to insurance issues. - Did not have any flare ups since 2018 - Most recent flare up was in late 10/2022 - seen by Angela 11/2022 with exudative lesion Right eye - started on po prednisone, resolved now off prednisone - 07/2023: had corneal edema concerning for corneal transplant rejection Workup: - Labs 11/2022: elevated WBC 15.9k and abs neutrophil count (while on oral prednisone); MAGNO, TB, syphilis, HLA-A29 negative; unremarkable complete metabolic panel (CMP) (sl elevated BUN) Imagin11/17/2022 - OCT: OD with SRF temporal to the macula. Mild ERM. OS: Flat but with subretinal ?granuloma/scar with intraretinal pigment - FA: OD: Optic disc leakage with Staining/leakage of superotemporal retinal lesion and surroundingpooling. OS: No apparent leakage. Macular staining. - Bscan: Thickened choroid. No mass. Overlying RD. 03/17/23 - FAF 08/18/23: increase in hyperAF sup-temp right eye; macular hypoAF left eye - OCT: stable; normal OD, dry pigment epithelial detachment left eye (stable) Meds: *Completed prednisone taper 12/2022 - History of Cellcept, MTX Impression/PLAN: - DDx: sarcoid/syphilis/TB, sympathetic ophthalmia, Jaquelin's, Birdshot; lymphoma also should be considered given the age group. - Has history of colon cancer, but cancer free now and off chemo since 2019 - remains stable off PO prednisone - ok to observe for now - consider local vs cellcept in future - precert ozurdex for short term control Keratoconus Both eyes - s/p corneal transplant (ALK) left eye x 30 yrs ago - follows with Dr. Patton for CL fitting - stromal haze today - Had corneal edema with Dr. Patton 1 month ago which was treated with PF qid OS x 2.5 wk; vision and exam improved - F/u with Dr. Patton today as schedule; refer back to Dr. Bloom if concern for graft rejection (last seen in 2020) Pseudophakia, Both Eyes - s/p CE/PCIOL with Dr. Bloom - s/p Cataract extraction 05/05/20 Right eye Epiretinal membrane Left eye - Not visually significant History of colon cancer - Dx'ed in 2019 - Finished chemotherapy in 2019 - s/p partial colectomy - Now cancer free I have confirmed and edited as necessary the relevant ophthalmic history, ROS, and the clinical/neuro exam findings as obtained by others. I have seen and examined this patient. I have discussed the case and the management of this patient's care with the Resident/Fellow, if applicable. I also have reviewed and agree with the assessment and plan as stated above and agree with all of its relevant components on 10/26/2023 Jasper Banerjee MD Professor of Ophthalmology [facility] [employer] documented in this encounterOhio[facility] Telephone encounter Note * Telephone Encounter - Jennifer Mak - 10/24/2023 10:15 AM EDT I spoke with her and she understands. [facility] Miscellaneous Notes* Telephone Encounter - Jennifer Mak - 10/24/2023 10:15 AM EDT I spoke with her and she understands. * Telephone Encounter - Lata Paris MD - 10/24/2023 10:01 AM EDT No we will re-evalute at visit * Telephone Encounter - Jennifer Mak - 10/24/2023 9:48 AM EDT Thanks. She will come in on Tue. Should she do anything in the meantime? She said she normally usesprednisolone, but she does not have any drops. * Telephone Encounter - Lata Paris MD - 10/24/2023 8:50 AM EDT Can see patient Tuesday at 8:30 in my clinic * Telephone Encounter - Jennifer Mak - 10/24/2023 8:43 AM EDT She is calling stating that she's having a flare up of her uveitis which started night. She's experiencing a spot in her left eye - stationary spot in her vision. Nadeem Prince MD filed at 08/18/2023 12:16 PM Status: Signed Vision blurrier OS. Had CL fitting visit with Dr. Patton, but noted to have corneal edema concerning for corneal transplant rejection. Started on prednisolone qid at that time; used for 2.5 wk and then self-d/c'ed by mistake. A/P Chorioretintis Both Eyes - h/o chorioretinitis Left eye - New choroidal lesion with overlying RD OD > recent 11/2022 - Followed by Dr. Patricia. Last seen her in 2018 Course: - Started with pain, blurriness and floaters around 2008 - Treated with oral steroids which improved her inflammation - Tried MTX but did not help - Has been on Cellcept from around [id number]. Discontinued as she did not have flare ups and couldn't get to be seen at [facility] due to insurance issues. - Did not have any flare ups since 2018 - Most recent flare up was in late 10/2022 - seen by Angela 11/2022 with exudative lesion Right eye - started on po prednisone, resolved now off prednisone - 07/2023: had corneal edema concerning for corneal transplant rejection Workup: - Labs 11/2022: elevated WBC 15.9k and abs neutrophil count (while on oral prednisone); MAGNO, TB, syphilis, HLA-A29 negative; unremarkable complete metabolic panel (CMP) (sl elevated BUN) Imagin11/17/2022 - OCT: OD with SRF temporal to the macula. Mild ERM. OS: Flat but with subretinal ?granuloma/scar with intraretinal pigment - FA: OD: Optic disc leakage with Staining/leakage of superotemporal retinal lesion and surroundingpooling. OS: No apparent leakage. Macular staining. - Bscan: Thickened choroid. No mass. Overlying RD. 03/17/23 - FAF 08/18/23: increase in hyperAF sup-temp right eye; macular hypoAF left eye - OCT: stable; normal OD, dry pigment epithelial detachment left eye (stable) Meds: *Completed prednisone taper 12/2022 - History of Cellcept, MTX Impression/PLAN: - DDx: sarcoid/syphilis/TB, sympathetic ophthalmia, Jaquelin's, Birdshot; lymphoma also should be considered given the age group. - Has history of colon cancer, but cancer free now and off chemo since 2019 - remains stable of prednisone - ok to observe for now - consider local vs cellcept in future - precert ozurdex for short term control 2. 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 Keratoconus Both eyes - s/p corneal transplant (ALK) left eye x 30 yrs ago - follows with Dr. Patton for CL fitting - stromal haze today - Had corneal edema with Dr. Patton 1 month ago which was treated with PF qid OS x 2.5 wk; vision and exam improved - F/u with Dr. Patton today as schedule; refer back to Dr. Bloom if concern for graft rejection (last seen in 2020) 4. Pseudophakia, Both Eyes - s/p CE/PCIOL with Dr. Bloom - s/p Cataract extraction 05/05/20 Right eye 5. Epiretinal membrane Left eye - Not visually significant 6. History of colon cancer - Dx'ed in 2019 - Finished chemotherapy in 2019 - s/p partial colectomy - Now cancer free documented in this encounterOhio[facility]24 Telephone encounter Note * Telephone Encounter - Lata Paris MD - 10/24/2023 10:01 AM EDT No we will re-evalute at visit [facility] Work Phone: 1(915) 443-876407-08-2024 Telephone encounter Note* Telephone Encounter - Jennifer Mak - 10/24/2023 9:48 AM EDT Thanks. She will come in on Tue. Should she do anything in the meantime? She said she normally usesprednisolone, but she does not have any drops. [facility]07-08-[facility] Telephone encounter Note* Telephone Encounter - Lata Paris MD - 10/24/2023 8:50 AM EDT Can see patient Tuesday at 8:30 in my clinic [facility] Telephone encounter Note* Telephone Encounter - Jennifer Mak - 10/24/2023 8:43 AM EDT She is calling stating that she's having a flare up of her uveitis which started night. She's experiencing a spot in her left eye - stationary spot in her vision. Nadeem Prince MD filed at 08/18/2023 12:16 PM Status: Signed Vision blurrier OS. Had CL fitting visit with Dr. Patton, but noted to have corneal edema concerning for corneal transplant rejection. Started on prednisolone qid at that time; used for 2.5 wk and then self-d/c'ed by mistake. A/P Chorioretintis Both Eyes - h/o chorioretinitis Left eye - New choroidal lesion with overlying RD OD > recent 11/2022 - Followed by Dr. Patricia. Last seen her in 2018 Course: - Started with pain, blurriness and floaters around 2008 - Treated with oral steroids which improved her inflammation - Tried MTX but did not help - Has been on Cellcept from around [id number]. Discontinued as she did not have flare ups and couldn't get to be seen at [facility] due to insurance issues. - Did not have any flare ups since 2018 - Most recent flare up was in late 10/2022 - seen by Angela 11/2022 with exudative lesion Right eye - started on po prednisone, resolved now off prednisone - 07/2023: had corneal edema concerning for corneal transplant rejection Workup: - Labs 11/2022: elevated WBC 15.9k and abs neutrophil count (while on oral prednisone); MAGNO, TB, syphilis, HLA-A29 negative; unremarkable complete metabolic panel (CMP) (sl elevated BUN) Imagin11/17/2022 - OCT: OD with SRF temporal to the macula. Mild ERM. OS: Flat but with subretinal ?granuloma/scar with intraretinal pigment - FA: OD: Optic disc leakage with Staining/leakage of superotemporal retinal lesion and surroundingpooling. OS: No apparent leakage. Macular staining. - Bscan: Thickened choroid. No mass. Overlying RD. 03/17/23 - FAF 08/18/23: increase in hyperAF sup-temp right eye; macular hypoAF left eye - OCT: stable; normal OD, dry pigment epithelial detachment left eye (stable) Meds: *Completed prednisone taper 12/2022 - History of Cellcept, MTX Impression/PLAN: - DDx: sarcoid/syphilis/TB, sympathetic ophthalmia, Jaquelin's, Birdshot; lymphoma also should be considered given the age group. - Has history of colon cancer, but cancer free now and off chemo since 2019 - remains stable of prednisone - ok to observe for now - consider local vs cellcept in future - precert ozurdex for short term control 2. 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 Keratoconus Both eyes - s/p corneal transplant (ALK) left eye x 30 yrs ago - follows with Dr. Patton for CL fitting - stromal haze today - Had corneal edema with Dr. Patton 1 month ago which was treated with PF qid OS x 2.5 wk; vision and exam improved - F/u with Dr. Patton today as schedule; refer back to Dr. Bloom if concern for graft rejection (last seen in 2020) 4. Pseudophakia, Both Eyes - s/p CE/PCIOL with Dr. Bloom - s/p Cataract extraction 05/05/20 Right eye 5. Epiretinal membrane Left eye - Not visually significant 6. History of colon cancer - Dx'ed in 2018 - Finished chemotherapy in 2019 - s/p partial colectomy - Now cancer free [facility] History of Present illness Narrative* Eric Patton, OD - 08/22/2023 4:42 PM EDT 1. Keratoconus OU, cornea replaced by transplant OS -pt ed, improvement in corneal appearance and vision -stopped pred, however would recommend re-start at least bid OS -schedule back with cornea - may need to stay on once daily -re-order lenses and mtp -D/c lenses and rtc w/any pain,redness or vision change I have confirmed and edited as necessary the relevant ophthalmic history, ROS, and the neuro exam findings as obtained by others. I have seen and examined Jacky Gonzalez. I have discussed the case and the management of this patient's care with the Resident/Fellow, if applicable. I also have reviewed and agree with the assessment and plan as stated above and agree withall of its relevant components. documented in this encounterOhio[facility]05-02-2024 NoteDate of Procedure 08/18/2023. [facility] Worker Information Telecom Manager: LV. Interpretation Right Eye Normal foveal contour. Findings include Negative for Intraretinal fluid. Left Eye Abnormal foveal contour. Findings include PED, IS/OS junction, Atrophy; Negative for Intraretinal fluid, Subretinal fluid. Interval Change Right Eye Stable. Left Eye Stable.[id number] NoteDate of Procedure 08/18/2023. [facility] Worker Information Telecom Manager: LV. Interpretation Right Eye Hyperfluorescence, Hypofluorescence. Left Eye Hypofluorescence; Negative for Hyperfluorescence.[id number] History of Present illness Narrative* Nadeem Prince MD - 08/18/2023 11:48 AM EDT Vision blurrier OS. Had CL fitting visit with Dr. Patton, but noted to have corneal edema concerning for corneal transplant rejection. Started on prednisolone qid at that time; used for 2.5 wk and then self-d/c'ed by mistake. A/P Chorioretintis Both Eyes - h/o chorioretinitis Left eye - New choroidal lesion with overlying RD OD > recent 11/2022 - Followed by Dr. Patricia. Last seen her in 2018 Course: - Started with pain, blurriness and floaters around 2008 - Treated with oral steroids which improved her inflammation - Tried MTX but did not help - Has been on Cellcept from around 1348-3514. Discontinued as she did not have flare ups and couldn't get to be seen at [facility] due to insurance issues. - Did not have any flare ups since 2018 - Most recent flare up was in late 10/2022 - seen by Angela 11/2022 with exudative lesion Right eye - started on po prednisone, resolved now off prednisone - 07/2023: had corneal edema concerning for corneal transplant rejection Workup: - Labs 11/2022: elevated WBC 15.9k and abs neutrophil count (while on oral prednisone); MAGNO, TB, syphilis, HLA-A29 negative; unremarkable complete metabolic panel (CMP) (sl elevated BUN) Imagin11/17/2022 - OCT: OD with SRF temporal to the macula. Mild ERM. OS: Flat but with subretinal ?granuloma/scar with intraretinal pigment - FA: OD: Optic disc leakage with Staining/leakage of superotemporal retinal lesion and surroundingpooling. OS: No apparent leakage. Macular staining. - Bscan: Thickened choroid. No mass. Overlying RD. 03/17/23 - FAF 08/18/23: increase in hyperAF sup-temp right eye; macular hypoAF left eye - OCT: stable; normal OD, dry pigment epithelial detachment left eye (stable) Meds: *Completed prednisone taper 12/2022 - History of Cellcept, MTX Impression/PLAN: - DDx: sarcoid/syphilis/TB, sympathetic ophthalmia, Jaquelin's, Birdshot; lymphoma also should be considered given the age group. - Has history of colon cancer, but cancer free now and off chemo since 2019 - remains stable of prednisone - ok to observe for now - consider local vs cellcept in future - precert ozurdex for short term control 2. 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 Keratoconus Both eyes - s/p corneal transplant (ALK) left eye x 30 yrs ago - follows with Dr. Patton for CL fitting - stromal haze today - Had corneal edema with Dr. Patton 1 month ago which was treated with PF qid OS x 2.5 wk; vision and exam improved - F/u with Dr. Patton today as schedule; refer back to Dr. Bloom if concern for graft rejection (last seen in 2020) 4. Pseudophakia, Both Eyes - s/p CE/PCIOL with Dr. Bloom - s/p Cataract extraction 05/05/20 Right eye 5. Epiretinal membrane Left eye - Not visually significant 6. History of colon cancer - Dx'ed in 2018 - Finished chemotherapy in 2019 - s/p partial colectomy - Now cancer free documented in this encounterOhio[facility]04-[facility] History of Present illness Narrative* Eric Patton, OD - 07/29/2023 2:30 PM EDT 1. Keratoconus OU, cornea replaced by transplant OS -pt ed, stable fit and vision OD. Re-order slight power change -OS with diffuse edema and haze, pt noted without lens prior to wearing lens -d/w cornea and reviewed photos, possible rejection -rx pred qid OS and rtc for f/up appt -D/c lenses and rtc w/any pain,redness or vision change I have confirmed and edited as necessary the relevant ophthalmic history, ROS, and the neuro exam findings as obtained by others. I have seen and examined Jacky Gonzalez. I have discussed the case and the management of this patient's care with the Resident/Fellow, if applicable. I also have reviewed and agree with the assessment and plan as stated above and agree withall of its relevant components. documented in this encounterOhio[facility]03-13-2024 Hospital Discharge instructions Patient Education 06/29/2023 16:51:58 Managing Anxiety, Adult Managing Anxiety, Adult After being diagnosed with anxiety, you may be relieved to know why you have felt or behaved a certain way. You may also feel overwhelmed about the treatment ahead and what it will mean for your life. With care and support, you can manage this condition. How to manage lifestyle changes Managing stress and anxiety Stress is your body's reaction to life changes and events, both good and bad. Most stress will lastjust a few hours, but stress can be ongoing and can lead to more than just stress. Although stress can play a major role in anxiety, it is not the same as anxiety. Stress is usually caused by something external, such as a deadline, test, or competition. Stress normally passes after the triggering ev ent has ended. Anxiety is caused by something internal, such as imagining a terrible outcome or worrying that something will go wrong that will devastate you. Anxiety often does not go away even after the triggering event is over, and it can become long-term (chronic) worry. It is important to understand the differences between stress and anxiety and to manage your stress effectively so that it does not lead adri anxious response. Talk with your health care provider or a counselor to learn more about reducing anxiety and stress.He or she may suggest tension reduction techniques, such as: Music therapy. Spend time creating or listening to music that you enjoy and that inspires you. Mindfulness-based meditation. Practice being aware of your normal breaths while not trying to control your breathing. It can be done while sitting or walking. Centering prayer. This involves focusing on a word, phrase, or sacred image that means something toyou and brings you peace. Deep breathing. To do this, expand your stomach and inhale slowly through your nose. Hold your breath for 3 5 seconds. Then exhale slowly, letting your stomach muscles relax. Self-talk. Learn to notice and identify thought patterns that lead to anxiety reactions and change those patterns to thoughts that feel peaceful. Muscle relaxation. Taking time to tense muscles and then relax them. Choose a tension reduction technique that fits your lifestyle and personality. These techniques take time and practice. Set aside 5 15 minutes a day to do them. Therapists can offer counseling and training in these techniques. The training to help with anxiety may be covered by some insurance plans. Other things you can do to manage stress and anxiety include: Keeping a stress diary. This can help you learn what triggers your reaction and then learn ways to manage your response. Thinking about how you react to certain situations. You may not be able to control everything, but you can control your response. Making time for activities that help you relax and not feeling guilty about spending your time in this way. Doing visual imagery. This involves imagining or creating mental pictures to help you relax. Practicing yoga. Through yoga poses, you can lower tension and promote relaxation. Medicines Medicines can help ease symptoms. Medicines for anxiety include: Antidepressant medicines. These are usually prescribed for long-term daily control. Anti-anxiety medicines. These may be added in severe cases, especially when panic attacks occur. Medicines will be prescribed by a health care provider. When used together, medicines, psychotherapy, and tension reduction techniques may be the most effective treatment. Relationships Relationships can play a big part in helping you recover. Try to spend more time connecting with trusted friends and family members. Consider going to couples counseling if you have a partner, taking family education classes, or going to family therapy. Therapy can help you and others better understand your condition. How to recognize changes in your anxiety Everyone responds differently to treatment for anxiety. Recovery from anxiety happens when symptomsdecrease and stop interfering with your daily activities at home or work. This may mean that you will start to: Have better concentration and focus. Worry will interfere less in your daily thinking. Sleep better. Be less irritable. Have more energy. Have improved memory. It is also important to recognize when your condition is getting worse. Contact your health care provider if your symptoms interfere with home or work and you feel like your condition is not improving. Follow these instructions at home: Activity Exercise. Adults should do the following: ?Exercise for at least 150 minutes each week. The exercise should increase your heart rate and makeyou sweat (moderate-intensity exercise). ?Strengthening exercises at least twice a week. Get the right amount and quality of sleep. Most adults need 7 9 hours of sleep each night. Lifestyle Eat a healthy diet that includes plenty of vegetables, fruits, whole grains, low-fat dairy products, and lean protein. ?Do not eat a lot of foods that are high in fats, added sugars, or salt (sodium). Make choices that simplify your life. Do not use any products that contain nicotine or tobacco. These products include cigarettes, chewing tobacco, and vaping devices, such as e-cigarettes. If you need help quitting, ask your health careprovider. Avoid caffeine, alcohol, and certain lhbe-asz-vkeklhr cold medicines. These may make you feel worse. Ask your pharmacist which medicines to avoid. General instructions Take gfnp-evp-nbcuhpd and prescription medicines only as told by your health care provider. Keep all follow-up visits. This is important. Where to find support You can get help and support from these sources: Self-help groups. Online and community organizations. A trusted spiritual leader. Couples counseling. Family education classes. Family therapy. Where to find more information You may find that joining a support group helps you deal with your anxiety. The following sources can help you locate counselors or support groups near you: Mental Health [place]: www.mentalhealthamerica.net Anxiety and Depression Association of [place] (ADAA): www.adaa.org National [place] on Mental Illness (ALEJANDRO): www.alejandro.org Contact a health care provider if: You have a hard time staying focused or finishing daily tasks. You spend many hours a day feeling worried about everyday life. You become exhausted by worry. You start to have headaches or frequently feel tense. You develop chronic nausea or diarrhea. Get help right away if: You have a racing heart and shortness of breath. You have thoughts of hurting yourself or others. If you ever feel like you may hurt yourself or others, or have thoughts about taking your own life,get help right away. Go to your nearest emergency department or: Call your local emergency services (580 in the [place] Call a suicide crisis helpline, such as the National Suicide Prevention Lifeline at or 902 in the [place] This is open 24 hours a day in the [place] Text the Crisis Text Line at 209744 (in the [place] Summary Taking steps to learn and use tension reduction techniques can help calm you and help prevent triggering an anxiety reaction. When used together, medicines, psychotherapy, and tension reduction techniques may be the most effective treatment. Family, friends, and partners can play a big part in supporting you. This information is not intended to replace advice given to you by your health care provider. Make sure you discuss any questions you have with your health care provider. Document Revised: 10/28/2021 Document Reviewed: 07/26/2021 [employer] [place] Patient Education 2022 [employer]. Follow Up Care 05/25/2023 11:27:42 With:Viral PARKER, GENERAL PURCHASING AGENT-RACQUET MAKERStacia Address: [address] [place] [phone] When:Within 4 Month(s) Comments:chronic care [facility] 03-07-2024 History of Present illness Narrative* Eric Patton, OD - 06/23/2023 2:09 PM EST 1. Keratoconus OU, cornea replaced by transplant OS -pt ed, adjust fit and power ou. Mtp and rtc for f/up appt -D/c lenses and rtc w/any pain,redness or vision change I have confirmed and edited as necessary the relevant ophthalmic history, ROS, and the neuro exam findings as obtained by others. I have seen and examined Jacky Gonzalez. I have discussed the case and the management of this patient's care with the Resident/Fellow, if applicable. I also have reviewed and agree with the assessment and plan as stated above and agree withall of its relevant components. documented in this encounterOhiohealth [facility]02-08-2024 History of Present illness Narrative* Hardik Torre, PT - 05/26/2023 1:00 PM EST [facility] Outpatient Physical Therapy Daily Note Patient: Jacky Gonzalez : 1955 CSN #: [id number] Referring Physician: Gilma Her MD Date: 05/26/2023 Diagnosis: L lumbar radiculopathy, M54.16 Treatment Diagnosis: Lumbar radiculopathy Onset Date: 04/10/23 PT Insurance Information: Medicare Total # of Visits Approved: 10 Per Physician Order Total # of Visits to Date: 10 No Show: 0 Canceled Appointment: 0 05/27/23 Plan of Care/Recert Due Pre-Treatment Pain: 0/10 Subjective: Pt reports no pain in the lower back; she is ready to dc from therapy. Exercises: Exercise 1: HEP: PPT, marching, glut sets, supine L sciatic nerve glides, L piriformis stretch; added 05/26/23 purple band rows/ext, fwd/lateral step ups, sit/stands, ball rollouts, hip add iso's, HS stretches, standing blue band hip abd/ext Exercise 2: SciFit Lvl 2.5 x10 min Exercise 3: ball rollout fwd/later 10x10 Exercise 4: PB ab iso 5 x10 Exercise 5: Retractions/ext/paloff press x15 --PurpleTB Exercise 9: Blue band standing hip abd/ext x15 ea LE Assessment Assessment: Pt has attended 10 PT visits for lumbar radiculopathy and has met all goals for independence with HEP, improved lumbar ROM and improved B LE strength and reports 98% improvement since beginning PT. Pt educated to continue HEP upon discharge and given HEP progression handouts as well. Will place patient on hold for 2 weeks and then dc prn d/t meeting all goals. Activity Tolerance Activity Tolerance: Patient tolerated treatment well Patient Education Exercise technique; continue HEP upon dc Pt verbalized/demonstrated good understanding: [x] Yes [] No, pt required further clarification. Post Treatment Pain: 0/10 Plan Plan Frequency: 2 Plan weeks: 4 Goals (Total # of Visits to Date: 10) Short Term Goals Time Frame for Short Term Goals: 3 weeks Short Term Goal 1: Patient to initiate HEP for improved core and B hip strength for improved lumbarstability.-met Short Term Goal 2: Initiate core strengthening and lumbar mobility exercises to improve lumbar stability.-met Short Term Goal 3: Initiate manual techniques/modalities prn to decrease pain/radicular symptoms and improve lumbar mobility.-met Detention Goals Time Frame for Stacker Tender Goals : 6 weeks Stacker Tender Goal 1: Patient to be independent and compliant with HEP.-met Detention Goal 2: Patient to have improved core and B hip strength >/=4+/5 grossly for improved lumbar stability in standing and sitting.-met Detention Goal 3: Patient to have improved lumbar AROM flexion to floor and B SB to knees with no pain for improved mobility.-met Stacker Tender Goal 4: Patient to report >/=75% improvement in symptoms for improved QOL.-met (98% improved) Minutes Tracking: Time In: 1305 Time Out: 1335 Minutes: 30 Timed Code Treatment Minutes: 29 Minutes Hardik Torre, PT, DPT Date: 05/26/2023 [facility] instructions Patient Education 05/24/2023 19:30:38 Irritable Bowel Syndrome, Adult Irritable Bowel Syndrome, Adult Irritable bowel syndrome (IBS) is a group of symptoms that affects the organs responsible for digestion (gastrointestinal tract, or GI tract). IBS is not one specific disease. To regulate how the GI tract works, the body sends signals back and forth between the intestines and the brain. If you have IBS, there may be a problem with these signals. As a result, the GI tract does not function normally. The intestines may become more sensitive and overreact to certain things.This may be especially true when you eat certain foods or when you are under stress. There are four main types of IBS. These may be determined based on the consistency of your stool (feces): IBS with mostly (predominance of) diarrhea. IBS with predominance of constipation. IBS with mixed bowel habits. This includes both diarrhea and constipation. IBS unclassified. This includes IBS that cannot be categorized into one of the other three main types. It is important to know which type of IBS you have. Certain treatments are more likely to be helpful for certain types of IBS. What are the causes? The exact cause of IBS is not known. What increases the risk? You may have a higher risk for IBS if you: Are female. Are younger than 40 years. Have a family history of IBS. Have a mental health condition, such as depression, anxiety, or post-traumatic stress disorder. Have had a bacterial infection of your GI tract. What are the signs or symptoms? Symptoms of IBS vary from person to person. The main symptom is abdominal pain or discomfort. Othersymptoms usually include one or more of the following: Diarrhea, constipation, or both. Swelling or bloating in the abdomen. Feeling full after eating a small or regular-sized meal. Frequent gas. Mucus in the stool. A feeling of having more stool left after a bowel movement. Symptoms tend to come and go. They may be triggered by stress, mental health conditions, or certainfoods. How is this diagnosed? This condition may be diagnosed based on a physical exam, your medical history, and your symptoms. You may have tests, such as: Blood tests. Stool test. Colonoscopy. This is a procedure in which your GI tract is viewed with a long, thin, flexible tube. How is this treated? There is no cure for IBS, but treatment can help relieve symptoms. Treatment depends on the type ofIBS you have, and may include: Changes to your diet, such as: ?Avoiding foods that cause symptoms. ?Drinking more water. ?Following a low-FODMAP (fermentable oligosaccharides, disaccharides, monosaccharides, and polyols)diet for up to 6 weeks, or as told by your health care provider. FODMAPs are sugars that are hard for some people to digest. ?Eating more fiber. ?Eating small meals at the same times every day. Medicines. These may include: ?Fiber supplements, if you have constipation. ?Medicine to control diarrhea (antidiarrheal medicines). ?Medicine to help control muscle tightening (spasms) in your GI tract (antispasmodic medicines). ?Medicines to help with mental health conditions, such as antidepressants. Talk therapy or counseling. Working with a dietitian to help create a food plan that is right for you. Managing your stress. Follow these instructions at home: Eating and drinking Eat a healthy diet. Eat 5 6 small meals a day. Try to eat meals at about the same times each day. Do not eat large meals. Gradually eat more fiber-rich foods. These include whole grains, fruits, and vegetables. This may be especially helpful if you have IBS with constipation. Eat a diet low in FODMAPs. You may need to avoid foods such as citrus fruits, cabbage, garlic, and onions. Drink enough fluid to keep your urine pale yellow. Keep a journal of foods that seem to trigger symptoms. Avoid foods and drinks that: ?Contain added sugar. ?Make your symptoms worse. These may include dairy products, caffeinated drinks, and carbonated drinks. Alcohol use Do not drink alcohol if: ?Your health care provider tells you not to drink. ?You are , may be , or are planning to become . If you drink alcohol: ?Limit how much you have to: ?0 1 drink a day for women. ?0 2 drinks a day for men. ?Know how much alcohol is in your drink. In the [place] one drink equals one 12 oz bottle of beer (355 mL), one 5 oz glass of wine (148 mL), or one 1 oz glass of hard liquor (44 mL) General instructions Take dqer-yqk-blmvzdv and prescription medicines only as told by your health care provider. This includes supplements. Get enough exercise. Do at least 150 minutes of moderate-intensity exercise each week. Manage your stress. Getting enough sleep and exercise can help you manage stress. Keep all follow-up visits. This is important. This includes all visits with your health care provider and therapist. Where to find more information International Foundation for Functional Gastrointestinal Disorders: aboutibs.org National [place] of Diabetes and Digestive and Kidney Diseases: niddk.nih.gov Contact a health care provider if: You have constant pain. You lose weight. You have diarrhea that gets worse. You have bleeding from the rectum. You vomit often. You have a fever. Get help right away if: You have severe abdominal pain. You have diarrhea with symptoms of dehydration, such as dizziness or dry mouth. You have bloody or black stools. You have severe abdominal bloating. You have vomiting that does not stop. You have blood in your vomit. Summary Irritable bowel syndrome (IBS) is not one specific disease. It is a group of symptoms that affects digestion. Your intestines may become more sensitive and overreact to certain things. This may be especially true when you eat certain foods or when you are under stress. There is no cure for IBS, but treatment can help relieve symptoms. This information is not intended to replace advice given to you by your health care provider. Make sure you discuss any questions you have with your health care provider. Document Revised: 03/17/2022 Document Reviewed: 03/17/2022 [employer] [place] Patient Education 2022 [employer]. 05/24/2023 19:30:33 High Cholesterol High Cholesterol High cholesterol is a condition in which the blood has high levels of a white, waxy substance similar to fat (cholesterol). The liver makes all the cholesterol that the body needs. The human body needs small amounts of cholesterol to help build cells. A person gets extra or excess cholesterol from the food that he or she eats. The blood carries cholesterol from the liver to the rest of the body. If you have high cholesterol,deposits (plaques) may build up on the chaudhari of your arteries. Arteries are the blood vessels that carry blood away from your heart. These plaques make the arteries narrow and stiff. Cholesterol plaques increase your risk for heart attack and stroke. Work with your health care provider to keep your cholesterol levels in a healthy range. What increases the risk? The following factors may make you more likely to develop this condition: Eating foods that are high in animal fat (saturated fat) or cholesterol. Being overweight. Not getting enough exercise. A family history of high cholesterol (familial hypercholesterolemia). Use of tobacco products. Having diabetes. What are the signs or symptoms? In most cases, high cholesterol does not usually cause any symptoms. In severe cases, very high cholesterol levels can cause: Fatty bumps under the skin (xanthomas). A white or berry ring around the black center (pupil) of the eye. How is this diagnosed? This condition may be diagnosed based on the results of a blood test. If you are older than 20 years of age, your health care provider may check your cholesterol levels every 4 6 years. You may be checked more often if you have high cholesterol or other risk factors for heart disease. The blood test for cholesterol measures: Bad cholesterol, or LDL cholesterol. This is the main type of cholesterol that causes heart disease. The desired level is less than 100 mg/dL (2.59 mmol/L). Good cholesterol, or HDL cholesterol. HDL helps protect against heart disease by cleaning the arteries and carrying the LDL to the liver for processing. The desired level for HDL is 60 mg/dL (1.55 mmol/L) or higher. Triglycerides. These are fats that your body can store or burn for energy. The desired level is less than 150 mg/dL (1.69 mmol/L). Total cholesterol. This measures the total amount of cholesterol in your blood and includes LDL, HDL, and triglycerides. The desired level is less than 200 mg/dL (5.17 mmol/L). How is this treated? Treatment for high cholesterol starts with lifestyle changes, such as diet and exercise. Diet changes. You may be asked to eat foods that have more fiber and less saturated fats or added sugar. Lifestyle changes. These may include regular exercise, maintaining a healthy weight, and quitting use of tobacco products. Medicines. These are given when diet and lifestyle changes have not worked. You may be prescribed astatin medicine to help lower your cholesterol levels. Follow these instructions at home: Eating and drinking Eat a healthy, balanced diet. This diet includes: ? Daily servings of a variety of fresh, frozen, or canned fruits and vegetables. ?Daily servings of whole grain foods that are rich in fiber. ?Foods that are low in saturated fats and trans fats. These include poultry and fish without skin, lean cuts of meat, and low-fat dairy products. ?A variety of fish, especially oily fish that contain omega-3 fatty acids. Aim to eat fish at least2 times a week. Avoid foods and drinks that have added sugar. Use healthy cooking methods, such as roasting, grilling, broiling, baking, poaching, steaming, and stir-frying. Do not muniz your food except for stir-frying. If you drink alcohol: ?Limit how much you have to: ?0 1 drink a day for women who are not . ?0 2 drinks a day for men. ?Know how much alcohol is in a drink. In the [place] one drink equals one 12 oz bottle of beer (355 mL), one 5 oz glass of wine (148 mL), or one 1 oz glass of hard liquor (44 mL). Lifestyle Get regular exercise. Aim to exercise for a total of 150 minutes a week. Increase your activity level by doing activities such as gardening, walking, and taking the stairs. Do not use any products that contain nicotine or tobacco. These products include cigarettes, chewing tobacco, and vaping devices, such as e-cigarettes. If you need help quitting, ask your health careprovider. General instructions Take xrlc-obz-mwnxtrc and prescription medicines only as told by your health care provider. Keep all follow-up visits. This is important. Where to find more information [place] Heart Association: www.heart.org National Heart, Lung, and Blood [place]: www.nhlbi.nih.gov Contact a health care provider if: You have trouble achieving or maintaining a healthy diet or weight. You are starting an exercise program. You are unable to stop smoking. Get help right away if: You have chest pain. You have trouble breathing. You have discomfort or pain in your jaw, neck, back, shoulder, or arm. You have any symptoms of a stroke. BE FAST is an easy way to remember the main warning signs of astroke: ?B - Balance. Signs are dizziness, sudden trouble walking, or loss of balance. ?E - Eyes. Signs are trouble seeing or a sudden change in vision. ?F - Face. Signs are sudden weakness or numbness of the face, or the face or eyelid drooping on oneside. ?A - Arms. Signs are weakness or numbness in an arm. This happens suddenly and usually on one side of the body. ?S - Speech. Signs are sudden trouble speaking, slurred speech, or trouble understanding what people say. ?T - Time. Time to call emergency services. Write down what time symptoms started. You have other signs of a stroke, such as: ?A sudden, severe headache with no known cause. ?Nausea or vomiting. ?Seizure. These symptoms may represent a serious problem that is an emergency. Do not wait to see if the symptoms will go away. Get medical help right away. Call your local emergency services (911 in the [place] Do not drive yourself to the hospital. Summary Cholesterol plaques increase your risk for heart attack and stroke. Work with your health care provider to keep your cholesterol levels in a healthy range. Eat a healthy, balanced diet, get regular exercise, and maintain a healthy weight. Do not use any products that contain nicotine or tobacco. These products include cigarettes, chewing tobacco, and vaping devices, such as e-cigarettes. Get help right away if you have any symptoms of a stroke. This information is not intended to replace advice given to you by your health care provider. Make sure you discuss any questions you have with your health care provider. Document Revised: 06/18/2021 Document Reviewed: 06/08/2021 [employer] [place] Patient Education 2022 [employer]. 05/24/2023 19:30:30 Managing Anxiety, Adult Managing Anxiety, Adult After being diagnosed with anxiety, you may be relieved to know why you have felt or behaved a certain way. You may also feel overwhelmed about the treatment ahead and what it will mean for your life. With care and support, you can manage this condition. How to manage lifestyle changes Managing stress and anxiety Stress is your body's reaction to life changes and events, both good and bad. Most stress will lastjust a few hours, but stress can be ongoing and can lead to more than just stress. Although stress can play a major role in anxiety, it is not the same as anxiety. Stress is usually caused by something external, such as a deadline, test, or competition. Stress normally passes after the triggering event has ended. Anxiety is caused by something internal, such as imagining a terrible outcome or worrying that something will go wrong that will devastate you. Anxiety often does not go away even after the triggering event is over, and it can become long-term (chronic) worry. It is important to understand the differences between stress and anxiety and to manage your stress effectively so that it does not lead adri anxious response. Talk with your health care provider or a counselor to learn more about reducing anxiety and stress.He or she may suggest tension reduction techniques, such as: Music therapy. Spend time creating or listening to music that you enjoy and that inspires you. Mindfulness-based meditation. Practice being aware of your normal breaths while not trying to control your breathing. It can be done while sitting or walking. Centering prayer. This involves focusing on a word, phrase, or sacred image that means something toyou and brings you peace. Deep breathing. To do this, expand your stomach and inhale slowly through your nose. Hold your breath for 3 5 seconds. Then exhale slowly, letting your stomach muscles relax. Self-talk. Learn to notice and identify thought patterns that lead to anxiety reactions and change those patterns to thoughts that feel peaceful. Muscle relaxation. Taking time to tense muscles and then relax them. Choose a tension reduction technique that fits your lifestyle and personality. These techniques take time and practice. Set aside 5 15 minutes a day to do them. Therapists can offer counseling and training in these techniques. The training to help with anxiety may be covered by some insurance plans. Other things you can do to manage stress and anxiety include: Keeping a stress diary. This can help you learn what triggers your reaction and then learn ways to manage your response. Thinking about how you react to certain situations. You may not be able to control everything, but you can control your response. Making time for activities that help you relax and not feeling guilty about spending your time in this way. Doing visual imagery. This involves imagining or creating mental pictures to help you relax. Practicing yoga. Through yoga poses, you can lower tension and promote relaxation. Medicines Medicines can help ease symptoms. Medicines for anxiety include: Antidepressant medicines. These are usually prescribed for long-term daily control. Anti-anxiety medicines. These may be added in severe cases, especially when panic attacks occur. Medicines will be prescribed by a health care provider. When used together, medicines, psychotherapy, and tension reduction techniques may be the most effective treatment. Relationships Relationships can play a big part in helping you recover. Try to spend more time connecting with trusted friends and family members. Consider going to couples counseling if you have a partner, taking family education classes, or going to family therapy. Therapy can help you and others better understand your condition. How to recognize changes in your anxiety Everyone responds differently to treatment for anxiety. Recovery from anxiety happens when symptomsdecrease and stop interfering with your daily activities at home or work. This may mean that you will start to: Have better concentration and focus. Worry will interfere less in your daily thinking. Sleep better. Be less irritable. Have more energy. Have improved memory. It is also important to recognize when your condition is getting worse. Contact your health care provider if your symptoms interfere with home or work and you feel like your condition is not improving. Follow these instructions at home: Activity Exercise. Adults should do the following: ?Exercise for at least 150 minutes each week. The exercise should increase your heart rate and makeyou sweat (moderate-intensity exercise). ?Strengthening exercises at least twice a week. Get the right amount and quality of sleep. Most adults need 7 9 hours of sleep each night. Lifestyle Eat a healthy diet that includes plenty of vegetables, fruits, whole grains, low-fat dairy products, and lean protein. ?Do not eat a lot of foods that are high in fats, added sugars, or salt (sodium). Make choices that simplify your life. Do not use any products that contain nicotine or tobacco. These products include cigarettes, chewing tobacco, and vaping devices, such as e-cigarettes. If you need help quitting, ask your health careprovider. Avoid caffeine, alcohol, and certain ivvc-hzt-keqcgfj cold medicines. These may make you feel worse. Ask your pharmacist which medicines to avoid. General instructions Take jpdq-apv-vvhjwud and prescription medicines only as told by your health care provider. Keep all follow-up visits. This is important. Where to find support You can get help and support from these sources: Self-help groups. Online and community organizations. A trusted spiritual leader. Couples counseling. Family education classes. Family therapy. Where to find more information You may find that joining a support group helps you deal with your anxiety. The following sources can help you locate counselors or support groups near you: Mental Health [place]: www.mentalhealthamerica.net Anxiety and Depression Association of [place] (ADAA): www.adaa.org National [place] on Mental Illness (ALEJANDRO): www.alejandro.org Contact a health care provider if: You have a hard time staying focused or finishing daily tasks. You spend many hours a day feeling worried about everyday life. You become exhausted by worry. You start to have headaches or frequently feel tense. You develop chronic nausea or diarrhea. Get help right away if: You have a racing heart and shortness of breath. You have thoughts of hurting yourself or others. If you ever feel like you may hurt yourself or others, or have thoughts about taking your own life,get help right away. Go to your nearest emergency department or: Call your local emergency services (911 in the [place] Call a suicide crisis helpline, such as the National Suicide Prevention Lifeline at or 208 in the [place] This is open 24 hours a day in the [place] Text the Crisis Text Line at 886082 (in the [place] Summary Taking steps to learn and use tension reduction techniques can help calm you and help prevent triggering an anxiety reaction. When used together, medicines, psychotherapy, and tension reduction techniques may be the most effective treatment. Family, friends, and partners can play a big part in supporting you. This information is not intended to replace advice given to you by your health care provider. Make sure you discuss any questions you have with your health care provider. Document Revised: 10/28/2021 Document Reviewed: 07/26/2021 [employer] [place] Patient Education 2022 [employer]. 05/24/2023 19:30:25 DASH Eating Plan DASH Eating Plan DASH stands for Dietary Approaches to Stop Hypertension. The DASH eating plan is a healthy eating plan that has been shown to: Reduce high blood pressure (hypertension). Reduce your risk for type 2 diabetes, heart disease, and stroke. Help with weight loss. What are tips for following this plan? Reading food labels Check food labels for the amount of salt (sodium) per serving. Choose foods with less than 5 percent of the Daily Value of sodium. Generally, foods with less than 300 milligrams (mg) of sodium per serving fit into this eating plan. To find whole grains, look for the word whole as the first word in the ingredient list. Shopping Buy products labeled as low-sodium or no salt added. Buy fresh foods. Avoid canned foods and pre-made or frozen meals. Cooking Avoid adding salt when cooking. Use salt-free seasonings or herbs instead of table salt or sea salt. Check with your health care provider or pharmacist before using salt substitutes. Do not muniz foods. Cook foods using healthy methods such as baking, boiling, grilling, roasting, andbroiling instead. Cook with heart-healthy oils, such as olive, canola, avocado, soybean, or sunflower oil. Meal planning Eat a balanced diet that includes: ?4 or more servings of fruits and 4 or more servings of vegetables each day. Try to fill one-half of your plate with fruits and vegetables. ?6 8 servings of whole grains each day. ?Less than 6 oz (170 g) of lean meat, poultry, or fish each day. A 3-oz (85-g) serving of meat is about the same size as a deck of cards. One egg equals 1 oz (28 g). ?2 3 servings of low-fat dairy each day. One serving is 1 cup (237 mL). ?1 serving of nuts, seeds, or beans 5 times each week. ?2 3 servings of heart-healthy fats. Healthy fats called omega-3 fatty acids are found in foods such as walnuts, flaxseeds, fortified milks, and eggs. These fats are also found in cold-water fish, such as sardines, salmon, and mackerel. Limit how much you eat of: ?Canned or prepackaged foods. ?Food that is high in trans fat, such as some fried foods. ?Food that is high in saturated fat, such as fatty meat. ?Desserts and other sweets, sugary drinks, and other foods with added sugar. ?Full-fat dairy products. Do not salt foods before eating. Do not eat more than 4 egg yolks a week. Try to eat at least 2 vegetarian meals a week. Eat more home-cooked food and less restaurant, buffet, and fast food. Lifestyle When eating at a restaurant, ask that your food be prepared with less salt or no salt, if possible. If you drink alcohol: ?Limit how much you use to: ?0 1 drink a day for women who are not . ?0 2 drinks a day for men. ?Be aware of how much alcohol is in your drink. In the [place] one drink equals one 12 oz bottle of beer (355 mL), one 5 oz glass of wine (148 mL), or one 1 oz glass of hard liquor (44 mL). General information Avoid eating more than 2,300 mg of salt a day. If you have hypertension, you may need to reduce your sodium intake to 1,500 mg a day. Work with your health care provider to maintain a healthy body weight or to lose weight. Ask what an ideal weight is for you. Get at least 30 minutes of exercise that causes your heart to beat faster (aerobic exercise) most days of the week. Activities may include walking, swimming, or biking. Work with your health care provider or dietitian to adjust your eating plan to your individual calorie needs. What foods should I eat? Fruits All fresh, dried, or frozen fruit. Canned fruit in natural juice (without added sugar). Vegetables Fresh or frozen vegetables (raw, steamed, roasted, or grilled). Low-sodium or reduced-sodium tomatoand vegetable juice. Low-sodium or reduced-sodium tomato sauce and tomato paste. Low-sodium or reduced-sodium canned vegetables. Grains Whole-grain or whole-wheat bread. Whole-grain or whole-wheat pasta. Brown rice. Oatmeal. Quinoa. Bulgur. Whole-grain and low-sodium cereals. Cristina bread. Low- fat, low-sodium crackers. Whole-wheat flour tortillas. Meats and other proteins Skinless chicken or turkey. Ground chicken or turkey. Pork with fat trimmed off. Fish and seafood. Egg whites. Dried beans, peas, or lentils. Unsalted nuts, nut butters, and seeds. Unsalted canned beans. Lean cuts of beef with fat trimmed off. Low-sodium, lean precooked or cured meat, such as sausages or meat loaves. Dairy Low-fat (1%) or fat-free (skim) milk. Reduced-fat, low-fat, or fat-free cheeses. Nonfat, low-sodiumricotta or cottage cheese. Low-fat or nonfat yogurt. Low-fat, low-sodium cheese. Fats and oils Soft margarine without trans fats. Vegetable oil. Reduced-fat, low-fat, or light mayonnaise and salad dressings (reduced-sodium). Canola, safflower, olive, avocado, soybean, and sunflower oils. Avocado. Seasonings and condiments Herbs. Spices. Seasoning mixes without salt. Other foods Unsalted popcorn and pretzels. Fat-free sweets. The items listed above may not be a complete list of foods and beverages you can eat. Contact a dietitian for more information. What foods should I avoid? Fruits Canned fruit in a light or heavy syrup. Fried fruit. Fruit in cream or butter sauce. Vegetables Creamed or fried vegetables. Vegetables in a cheese sauce. Regular canned vegetables (not low-sodium or reduced-sodium). Regular canned tomato sauce and paste (not low-sodium or reduced-sodium). Regular tomato and vegetable juice (not low-sodium or reduced-sodium). Pickles. Olives. Grains Baked goods made with fat, such as croissants, muffins, or some breads. Dry pasta or rice meal packs. Meats and other proteins Fatty cuts of meat. Ribs. Fried meat. Cardoso. Bologna, salami, and other precooked or cured meats, such as sausages or meat loaves. Fat from the back of a pig (fatback). Bratwurst. Salted nuts and seeds. Canned beans with added salt. Canned or smoked fish. Whole eggs or egg yolks. Chicken or turkey with skin. Dairy Whole or 2% milk, cream, and qpzb-bor-[id number]. Whole or full-fat cream cheese. Whole-fat or sweetened yogurt. Full-fat cheese. Nondairy creamers. Whipped toppings. Processed cheese and cheese spreads. Fats and oils Butter. Stick margarine. Lard. Shortening. Ghee. Cardoso fat. Tropical oils, such as coconut, palm kernel, or palm oil. Seasonings and condiments Onion salt, garlic salt, seasoned salt, table salt, and sea salt. Worcestershire sauce. Tartar sauce. Barbecue sauce. Teriyaki sauce. Soy sauce, including reduced-sodium. Steak sauce. Canned and packaged gravies. Fish sauce. Oyster sauce. Cocktail sauce. Store-bought horseradish. Ketchup. Mustard. Meat flavorings and tenderizers. Bouillon cubes. Hot sauces. Pre-made or packaged marinades. Pre-made or packaged taco seasonings. Relishes. Regular salad dressings. Other foods Salted popcorn and pretzels. The items listed above may not be a complete list of foods and beverages you should avoid. Contact a dietitian for more information. Where to find more information National Heart, Lung, and Blood [place]: www.nhlbi.nih.gov [place] Heart Association: www.heart.org Academy of Nutrition and Dietetics: www.eatright.org National Kidney Foundation: www.kidney.org Summary The DASH eating plan is a healthy eating plan that has been shown to reduce high blood pressure (hypertension). It may also reduce your risk for type 2 diabetes, heart disease, and stroke. When on the DASH eating plan, aim to eat more fresh fruits and vegetables, whole grains, lean proteins, low-fat dairy, and heart-healthy fats. With the DASH eating plan, you should limit salt (sodium) intake to 2,300 mg a day. If you have hypertension, you may need to reduce your sodium intake to 1,500 mg a day. Work with your health care provider or dietitian to adjust your eating plan to your individual calorie needs. This information is not intended to replace advice given to you by your health care provider. Make sure you discuss any questions you have with your health care provider. Document Revised: 03/07/2020 Document Reviewed: 03/07/2020 [employer] [place] Patient Education 2022 Fanium. Follow Up Care 03/18/2023 12:01:15 With:Viral PARKER, GENERAL PURCHASING AGENT-RACQUET MAKER, Stacia Mcmahan Address: [address] [place], [place] [id number] When:Within 4 Week(s) Comments:anxiety/depression [facility] 01-25-2024 History of Present illness Narrative* Lina Humphreys PTA - 05/12/2023 1:30 PM EST [facility] Outpatient Physical Therapy Daily Note Patient: Jacky Gonzalez : 1955 CSN #: [id number] Referring Physician: Gilma Her MD Date: 05/12/2023 Diagnosis: L lumbar radiculopathy, M54.16 Treatment Diagnosis: Lumbar radiculopathy Onset Date: 04/10/23 PT Insurance Information: Medicare Total # of Visits Approved: 10 Per Physician Order Total # of Visits to Date: 5 No Show: 0 Canceled Appointment: 0 05/27/23 Plan of Care/Recert Due Pre-Treatment Pain: 04/27 Subjective: Pt reports 1/10 L LBP down her leg. Reports that last night she had some pain and usually has pain when trying to sleep at night. Exercises: Exercise 1: HEP: PPT, marching, glut sets, supine L sciatic nerve glides, L piriformis stretch Exercise 2: SciFit Lvl 2.5 x10 min Exercise 3: ball rollout fwd/later 10x10 Exercise 4: PB ab iso 5 x10 Exercise 6: Supine: PPT, marching, hip adduction ball squeeze, bridges, DKTC with adductor squeeze,10x ea Exercise 7: seated piriformis stretch 3x30 , seated HS stretch 2x30 Exercise 8: Seated sciatic nerve glides L LE 15x Exercise 10: Joystick 15x e[address] way Manual: Manual Traction: Gentle manual lumbar traction with small berry ball with relief of pain noted Modality: CP applied post session x10 min to reduce soreness Assessment Assessment: Continued to progress core stability exercises with increased reps, minimal cues for core activation and technique. No increase in symptoms reported t/o, pt with good tolerance to session. Ended session with CP to lower back for soreness. Will continue to progress per pt tolerance. Activity Tolerance Activity Tolerance: Patient tolerated treatment well Patient Education Patient Education: HEP Pt verbalized/demonstrated good understanding: [x] Yes [] No, pt required further clarification. 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 Detention Goal 2: Patient to have improved core and B hip strength >/=4+/5 grossly for improved lumbar stability in standing and sitting. Detention Goal 3: Patient to have improved lumbar AROM flexion to floor and B SB to knees with no pain for improved mobility. Detention Goal 4: Patient to report >/=75% improvement in symptoms for improved QOL. Minutes Tracking: Time In: 1331 Time Out: 1415 Minutes: 44 Timed Code Treatment Minutes: 42 Minutes Lina Humphreys PTA Date: 05/12/2023 [facility] instructions Patient Education 2023 15:55:46 Hypertension, Adult Hypertension, Adult High blood pressure (hypertension) is when the force of blood pumping through the arteries is too strong. The arteries are the blood vessels that carry blood from the heart throughout the body. Hypertension forces the heart to work harder to pump blood and may cause arteries to become narrow or stiff. Untreated or uncontrolled hypertension can lead to a heart attack, heart failure, a stroke, kidney disease, and other problems. A blood pressure reading consists of a higher number over a lower number. Ideally, your blood pressure should be below 120/80. The first ( top ) number is called the systolic pressure. It is a measure of the pressure in your arteries as your heart beats. The second ( bottom ) number is called the diastolic pressure. It is a measure of the pressure in your arteries as the heart relaxes. What are the causes? The exact cause of this condition is not known. There are some conditions that result in high bloodpressure. What increases the risk? Certain factors may make you more likely to develop high blood pressure. Some of these risk factorsare under your control, including: Smoking. Not getting enough exercise or physical activity. Being overweight. Having too much fat, sugar, calories, or salt (sodium) in your diet. Drinking too much alcohol. Other risk factors include: Having a personal history of heart disease, diabetes, high cholesterol, or kidney disease. Stress. Having a family history of high blood pressure and high cholesterol. Having obstructive sleep apnea. Age. The risk increases with age. What are the signs or symptoms? High blood pressure may not cause symptoms. Very high blood pressure (hypertensive crisis) may cause: Headache. Fast or irregular heartbeats (palpitations). Shortness of breath. Nosebleed. Nausea and vomiting. Vision changes. Severe chest pain, dizziness, and seizures. How is this diagnosed? This condition is diagnosed by measuring your blood pressure while you are seated, with your arm resting on a flat surface, your legs uncrossed, and your feet flat on the floor. The cuff of the bloodpressure monitor will be placed directly against the skin of your upper arm at the level of your heart. Blood pressure should be measured at least twice using the same arm. Certain conditions can cause a difference in blood pressure between your right and left arms. If you have a high blood pressure reading during one visit or you have normal blood pressure with other risk factors, you may be asked to: Return on a different day to have your blood pressure checked again. Monitor your blood pressure at home for 1 week or longer. If you are diagnosed with hypertension, you may have other blood or imaging tests to help your health care provider understand your overall risk for other conditions. How is this treated? This condition is treated by making healthy lifestyle changes, such as eating healthy foods, exercising more, and reducing your alcohol intake. You may be referred for counseling on a healthy diet and physical activity. Your health care provider may prescribe medicine if lifestyle changes are not enough to get your blood pressure under control and if: Your systolic blood pressure is above 130. Your diastolic blood pressure is above 80. Your personal target blood pressure may vary depending on your medical conditions, your age, and other factors. Follow these instructions at home: Eating and drinking Eat a diet that is high in fiber and potassium, and low in sodium, added sugar, and fat. An exampleof this eating plan is called the DASH diet. DASH stands for Dietary Approaches to Stop Hypertension. To eat this way: ?Eat plenty of fresh fruits and vegetables. Try to fill one half of your plate at each meal with fruits and vegetables. ?Eat whole grains, such as whole-wheat pasta, brown rice, or whole-grain bread. Fill about one fourth of your plate with whole grains. ?Eat or drink low-fat dairy products, such as skim milk or low-fat yogurt. ?Avoid fatty cuts of meat, processed or cured meats, and poultry with skin. Fill about one fourth of your plate with lean proteins, such as fish, chicken without skin, beans, eggs, or tofu. ?Avoid pre-made and processed foods. These tend to be higher in sodium, added sugar, and fat. Reduce your daily sodium intake. Many people with hypertension should eat less than 1,500 mg of sodium a day. Do not drink alcohol if: ?Your health care provider tells you not to drink. ?You are , may be , or are planning to become . If you drink alcohol: ?Limit how much you have to: ?0 1 drink a day for women. ?0 2 drinks a day for men. ?Know how much alcohol is in your drink. In the [place] one drink equals one 12 oz bottle of beer (355 mL), one 5 oz glass of wine (148 mL), or one 1 oz glass of hard liquor (44 mL). Lifestyle Work with your health care provider to maintain a healthy body weight or to lose weight. Ask what an ideal weight is for you. Get at least 30 minutes of exercise that causes your heart to beat faster (aerobic exercise) most days of the week. Activities may include walking, swimming, or biking. Include exercise to strengthen your muscles (resistance exercise), such as Pilates or lifting weights, as part of your weekly exercise routine. Try to do these types of exercises for 30 minutes at least 3 days a week. Do not use any products that contain nicotine or tobacco. These products include cigarettes, chewing tobacco, and vaping devices, such as e-cigarettes. If you need help quitting, ask your health careprovider. Monitor your blood pressure at home as told by your health care provider. Keep all follow-up visits. This is important. Medicines Take ggqn-onm-volwqay and prescription medicines only as told by your health care provider. Follow directions carefully. Blood pressure medicines must be taken as prescribed. Do not skip doses of blood pressure medicine. Doing this puts you at risk for problems and can makethe medicine less effective. Ask your health care provider about side effects or reactions to medicines that you should watch for. Contact a health care provider if you: Think you are having a reaction to a medicine you are taking. Have headaches that keep coming back (recurring). Feel dizzy. Have swelling in your ankles. Have trouble with your vision. Get help right away if you: Develop a severe headache or confusion. Have unusual weakness or numbness. Feel faint. Have severe pain in your chest or abdomen. Vomit repeatedly. Have trouble breathing. These symptoms may be an emergency. Get help right away. Call 911. Do not wait to see if the symptoms will go away. Do not drive yourself to the hospital. Summary Hypertension is when the force of blood pumping through your arteries is too strong. If this condition is not controlled, it may put you at risk for serious complications. Your personal target blood pressure may vary depending on your medical conditions, your age, and other factors. For most people, a normal blood pressure is less than 120/80. Hypertension is treated with lifestyle changes, medicines, or a combination of both. Lifestyle changes include losing weight, eating a healthy, low-sodium diet, exercising more, and limiting alcohol. This information is not intended to replace advice given to you by your health care provider. Make sure you discuss any questions you have with your health care provider. Document Revised: 02/09/2022 Document Reviewed: 02/09/2022 [employer] [place] Patient Education 2022 [employer]anium. Follow Up Care 04/04/2023 10:31:31 With:ARDEN RODRIGUEZ FAAFP, BEE Willett Address: When: Unknown Comments:PT order is for Ramer, see provider 2 months for BP [facility] 12-26-2023 Hospital Discharge instructions* Discharge Instructions* Farnaz Tracey PA-C - 04/12/2023 2:06 PM EST Try heat/ice, massage, and stretch. Tylenol may be taken in addition to the prescribed medication. If symptoms persist, follow-up with your primary care provider or back pain specialist. [facility] Discharge instructions Patient Education 03/18/2023 11:59:09 Generalized Anxiety Disorder, Adult Generalized Anxiety Disorder, Adult Generalized anxiety disorder (ADINA) is a mental health condition. Unlike normal worries, anxiety related to ADINA is not triggered by a specific event. These worries do not fade or get better with time.ADINA interferes with relationships, work, and school. ADINA symptoms can vary from mild to severe. People with severe ADINA can have intense waves of anxietywith physical symptoms that are similar to panic attacks. What are the causes? The exact cause of ADINA is not known, but the following are believed to have an impact: Differences in natural brain chemicals. Genes passed down from parents to children. Differences in the way threats are perceived. Development and stress during childhood. Personality. What increases the risk? The following factors may make you more likely to develop this condition: Being female. Having a family history of anxiety disorders. Being very shy. Experiencing very stressful life events, such as the of a loved one. Having a very stressful family environment. What are the signs or symptoms? People with ADINA often worry excessively about many things in their lives, such as their health and family. Symptoms may also include: Mental and emotional symptoms: ?Worrying excessively about natural disasters. ?Fear of being late. ?Difficulty concentrating. ?Fears that others are judging your performance. Physical symptoms: ?Fatigue. ?Headaches, muscle tension, muscle twitches, trembling, or feeling shaky. ?Feeling like your heart is pounding or beating very fast. ?Feeling out of breath or like you cannot take a deep breath. ?Having trouble falling asleep or staying asleep, or experiencing restlessness. ?Sweating. ?Nausea, diarrhea, or irritable bowel syndrome (IBS). Behavioral symptoms: ?Experiencing erratic moods or irritability. ?Avoidance of new situations. ?Avoidance of people. ?Extreme difficulty making decisions. How is this diagnosed? This condition is diagnosed based on your symptoms and medical history. You will also have a physical exam. Your health care provider may perform tests to rule out other possible causes of your symptoms. To be diagnosed with ADINA, a person must have anxiety that: Is out of his or her control. Affects several different aspects of his or her life, such as work and relationships. Causes distress that makes him or her unable to take part in normal activities. Includes at least three symptoms of ADINA, such as restlessness, fatigue, trouble concentrating, irritability, muscle tension, or sleep problems. Before your health care provider can confirm a diagnosis of ADINA, these symptoms must be present more days than they are not, and they must last for 6 months or longer. How is this treated? This condition may be treated with: Medicine. Antidepressant medicine is usually prescribed for long-term daily control. Anti-anxiety medicines may be added in severe cases, especially when panic attacks occur. Talk therapy (psychotherapy). Certain types of talk therapy can be helpful in treating ADINA by providing support, education, and guidance. Options include: ?Cognitive behavioral therapy (CBT). People learn coping skills and self-calming techniques to easetheir physical symptoms. They learn to identify unrealistic thoughts and behaviors and to replace them with more appropriate thoughts and behaviors. ?Acceptance and commitment therapy (ACT). This treatment teaches people how to be mindful as a way to cope with unwanted thoughts and feelings. ?Biofeedback. This process trains you to manage your body's response (physiological response) through breathing techniques and relaxation methods. You will work with a therapist while machines are used to monitor your physical symptoms. Stress management techniques. These include yoga, meditation, and exercise. A mental health specialist can help determine which treatment is best for you. Some people see improvement with one type of therapy. However, other people require a combination of therapies. Follow these instructions at home: Lifestyle Maintain a consistent routine and schedule. Anticipate stressful situations. Create a plan and allow extra time to work with your plan. Practice stress management or self-calming techniques that you have learned from your therapist or your health care provider. Exercise regularly and spend time outdoors. Eat a healthy diet that includes plenty of vegetables, fruits, whole grains, low-fat dairy products, and lean protein. ?Do not eat a lot of foods that are high in fat, added sugar, or salt (sodium). ?Drink plenty of water. Avoid alcohol. Alcohol can increase anxiety. Avoid caffeine and certain ahyu-umj-hwoaysb cold medicines. These may make you feel worse. Ask yourpharmacist which medicines to avoid. General instructions Take xycn-gce-skmsvml and prescription medicines only as told by your health care provider. Understand that you are likely to have setbacks. Accept this and be kind to yourself as you persistto take better care of yourself. Anticipate stressful situations. Create a plan and allow extra time to work with your plan. Recognize and accept your accomplishments, even if you clinician oncology them as small. Spend time with people who care about you. Keep all follow-up visits. This is important. Where to find more information National [place] of Mental Health: www.nimh.nih.gov Substance Abuse and Mental Health Services: www.samhsa.gov Contact a health care provider if: Your symptoms do not get better. Your symptoms get worse. You have signs of depression, such as: ?A persistently sad or irritable mood. ?Loss of enjoyment in activities that used to bring you damaris. ?Change in weight or eating. ?Changes in sleeping habits. Get help right away if: You have thoughts about hurting yourself or others. If you ever feel like you may hurt yourself or others, or have thoughts about taking your own life,get help right away. Go to your nearest emergency department or: Call your local emergency services (676 in the [place] Call a suicide crisis helpline, such as the National Suicide Prevention Lifeline at or 703 in the [place] This is open 24 hours a day in the [place] Text the Crisis Text Line at 475872 (in the [place] Summary Generalized anxiety disorder (ADINA) is a mental health condition that involves worry that is not triggered by a specific event. People with ADINA often worry excessively about many things in their lives, such as their health and family. ADINA may cause symptoms such as restlessness, trouble concentrating, sleep problems, frequent sweating, nausea, diarrhea, headaches, and trembling or muscle twitching. A mental health specialist can help determine which treatment is best for you. Some people see improvement with one type of therapy. However, other people require a combination of therapies. This information is not intended to replace advice given to you by your health care provider. Make sure you discuss any questions you have with your health care provider. Document Revised: 10/28/2021 Document Reviewed: 07/26/2021 [employer] [place] Patient Education 2022 [employer]. Follow Up Care 09/16/2022 12:02:24 With:ARDEN RODRIGUEZ FAAFP, BEE Willett Address: When: Unknown Comments:see nurse for fasting lab. see provider 6mo [facility] [place] 11-30-2023 History of Present illness Narrative* Milton Isaacs MD - 03/17/2023 12:07 PM EST No concerns today. Doing well A/P Chorioretintins Both Eyes - h/o chorioretinitis Left eye - New choroidal lesion with overlying RD OD > recent 11/2022 - Followed by Dr. Patricia. Last seen her in 2018 Course: - Started with pain, blurriness and floaters around 2008 - Treated with oral steroids which improved her inflammation - Tried MTX but did not help - Has been on Cellcept from around [id number]. Discontinued as she did not have flare ups and couldn't get to be seen at [facility] due to insurance issues. - Did not have any flare ups since 2018 - Most recent flare up was in late 10/2022 - seen by Angela 11/2022 with exudative lesion Right eye - started on po prednisone, resolved now off prednisone Workup: - Labs 11/2022: elevated WBC 15.9k and abs neutrophil count (while on oral prednisone); MAGNO, TB, syphilis, HLA-A29 negative; unremarkable complete metabolic panel (CMP) (sl elevated BUN) Imagin11/17/2022 - OCT: OD with SRF temporal to the macula. Mild ERM. OS: Flat but with subretinal ?granuloma/scar with intraretinal pigment - FA: OD: Optic disc leakage with Staining/leakage of superotemporal retinal lesion and surroundingpooling. OS: No apparent leakage. Macular staining. - Bscan: Thickened choroid. No mass. Overlying RD. 03/17/23 - FAF min hyperAF sup-temp right eye; macular hypoAF left eye - OCT: trace IRF right eye (stable); dry, pigment epithelial detachment left eye (stable) Meds: *Completed prednisone taper 12/2022 - History of Cellcept, MTX Impression/PLAN: - DDx: sarcoid/syphilis/TB, sympathetic ophthalmia, Jaquelin's, Birdshot; lymphoma also should be considered given the age group. - remains stable of prednisone - ok to observe for now - consider local vs cellcept in future - precert ozurdex for short term control 2. 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 Keratoconus Both eyes - s/p corneal transplant (ALK) left eye x 30 yrs ago - follows with Dr. Patton for CL fitting - clear graft today - CPM per Dr. Bloom (last seen 2020) 4. Pseudophakia, Both Eyes - s/p CE/PCIOL with Dr. Bloom - s/p Cataract extraction 05/05/20 Right eye 5. Epiretinal membrane Left eye - Not visually significant I have confirmed and edited as necessary the relevant ophthalmic history, ROS, and the neuro exam findings as obtained by others. I have seen and examined this patient. I have discussed the case and the management of this patient's care with the Resident/Fellow, if applicable. I also have reviewed and agree with the assessment and plan as stated above and agree withall of its relevant components. Milton Isaacs MD March 17, 2023 12:22 PM documented in [facility] Hospital Discharge instructions Patient Education 09/16/2022 11:40:10 Managing Anxiety, Adult Managing Anxiety, Adult After being diagnosed with anxiety, you may be relieved to know why you have felt or behaved a certain way. You may also feel overwhelmed about the treatment ahead and what it will mean for your life. With care and support, you can manage this condition. How to manage lifestyle changes Managing stress and anxiety Stress is your body's reaction to life changes and events, both good and bad. Most stress will lastjust a few hours, but stress can be ongoing and can lead to more than just stress. Although stress can play a major role in anxiety, it is not the same as anxiety. Stress is usually caused by something external, such as a deadline, test, or competition. Stress normally passes after the triggering event has ended. Anxiety is caused by something internal, such as imagining a terrible outcome or worrying that something will go wrong that will devastate you. Anxiety often does not go away even after the triggering event is over, and it can become long-term (chronic) worry. It is important to understand the differences between stress and anxiety and to manage your stress effectively so that it does not lead adri anxious response. Talk with your health care provider or a counselor to learn more about reducing anxiety and stress.He or she may suggest tension reduction techniques, such as: Music therapy. Spend time creating or listening to music that you enjoy and that inspires you. Mindfulness-based meditation. Practice being aware of your normal breaths while not trying to control your breathing. It can be done while sitting or walking. Centering prayer. This involves focusing on a word, phrase, or sacred image that means something toyou and brings you peace. Deep breathing. To do this, expand your stomach and inhale slowly through your nose. Hold your breath for 3 5 seconds. Then exhale slowly, letting your stomach muscles relax. Self-talk. Learn to notice and identify thought patterns that lead to anxiety reactions and change those patterns to thoughts that feel peaceful. Muscle relaxation. Taking time to tense muscles and then relax them. Choose a tension reduction technique that fits your lifestyle and personality. These techniques take time and practice. Set aside 5 15 minutes a day to do them. Therapists can offer counseling and training in these techniques. The training to help with anxiety may be covered by some insurance plans. Other things you can do to manage stress and anxiety include: Keeping a stress diary. This can help you learn what triggers your reaction and then learn ways to manage your response. Thinking about how you react to certain situations. You may not be able to control everything, but you can control your response. Making time for activities that help you relax and not feeling guilty about spending your time in this way. Doing visual imagery. This involves imagining or creating mental pictures to help you relax. Practicing yoga. Through yoga poses, you can lower tension and promote relaxation. Medicines Medicines can help ease symptoms. Medicines for anxiety include: Antidepressant medicines. These are usually prescribed for long-term daily control. Anti-anxiety medicines. These may be added in severe cases, especially when panic attacks occur. Medicines will be prescribed by a health care provider. When used together, medicines, psychotherapy, and tension reduction techniques may be the most effective treatment. Relationships Relationships can play a big part in helping you recover. Try to spend more time connecting with trusted friends and family members. Consider going to couples counseling if you have a partner, taking family education classes, or going to family therapy. Therapy can help you and others better understand your condition. How to recognize changes in your anxiety Everyone responds differently to treatment for anxiety. Recovery from anxiety happens when symptomsdecrease and stop interfering with your daily activities at home or work. This may mean that you will start to: Have better concentration and focus. Worry will interfere less in your daily thinking. Sleep better. Be less irritable. Have more energy. Have improved memory. It is also important to recognize when your condition is getting worse. Contact your health care provider if your symptoms interfere with home or work and you feel like your condition is not improving. Follow these instructions at home: Activity Exercise. Adults should do the following: ?Exercise for at least 150 minutes each week. The exercise should increase your heart rate and makeyou sweat (moderate-intensity exercise). ?Strengthening exercises at least twice a week. Get the right amount and quality of sleep. Most adults need 7 9 hours of sleep each night. Lifestyle Eat a healthy diet that includes plenty of vegetables, fruits, whole grains, low-fat dairy products, and lean protein. ?Do not eat a lot of foods that are high in fats, added sugars, or salt (sodium). Make choices that simplify your life. Do not use any products that contain nicotine or tobacco. These products include cigarettes, chewing tobacco, and vaping devices, such as e-cigarettes. If you need help quitting, ask your health careprovider. Avoid caffeine, alcohol, and certain umdw-uwr-mhiufvp cold medicines. These may make you feel worse. Ask your pharmacist which medicines to avoid. General instructions Take qqly-lgs-umjkase and prescription medicines only as told by your health care provider. Keep all follow-up visits. This is important. Where to find support You can get help and support from these sources: Self-help groups. Online and community organizations. A trusted spiritual leader. Couples counseling. Family education classes. Family therapy. Where to find more information You may find that joining a support group helps you deal with your anxiety. The following sources can help you locate counselors or support groups near you: Mental Health [place]: www.mentalhealthamerica.net Anxiety and Depression Association of [place] (ADAA): www.adaa.org National [place] on Mental Illness (ALEJANDRO): www.alejandro.org Contact a health care provider if: You have a hard time staying focused or finishing daily tasks. You spend many hours a day feeling worried about everyday life. You become exhausted by worry. You start to have headaches or frequently feel tense. You develop chronic nausea or diarrhea. Get help right away if: You have a racing heart and shortness of breath. You have thoughts of hurting yourself or others. If you ever feel like you may hurt yourself or others, or have thoughts about taking your own life,get help right away. Go to your nearest emergency department or: Call your local emergency services (911 in the [place] Call a suicide crisis helpline, such as the National Suicide Prevention Lifeline at or 550 in the [place] This is open 24 hours a day in the [place] Text the Crisis Text Line at 895916 (in the [place] Summary Taking steps to learn and use tension reduction techniques can help calm you and help prevent triggering an anxiety reaction. When used together, medicines, psychotherapy, and tension reduction techniques may be the most effective treatment. Family, friends, and partners can play a big part in supporting you. This information is not intended to replace advice given to you by your health care provider. Make sure you discuss any questions you have with your health care provider. Document Revised: 10/28/2021 Document Reviewed: 07/26/2021 [employer] [place] Patient Education 2022 [employer]anium. Follow Up Care 03/17/2022 11:24:00 With:ARDEN SANTAMARIA, BEE Willett Address: When: Unknown Comments:schedule AWV for late summer please. See 6mo with fasting lab [facility] 03-21-2023 Instructions* Patient Instructions* Matheus Moncada MD - 07/06/2022 11:28 AM EDT If you have any questions please contact our office at [phone]. After office hours or on the weekend, please call Dr. Moncada on his cell phone at [phone]. documented in this encounterOhio[facility]03-21-2023 History of Present illness Narrative* Matheus Moncada MD - 07/06/2022 10:31 AM EDT ASSESSMENT/PLAN: 1. Epiretinal membrane (ERM) of left eye - ICD9: 362.56, ICD10: H35.372 (primary diagnosis) -stable/ monitor - OCT MACULA CIRRUS OU (BOTH EYES) - FUNDUS PHOTOS OU (BOTH EYES) 2. Keratoconus, stable, bilateral - ICD9: 371.61, ICD10: H18.613 - Status post corneal transplant- left eye -stable/ monitor - continue care with Dr. Bloom 3. Pseudophakia, both eyes - ICD9: V43.1, ICD10: Z96.1 -Intraocular lens in good position both eyes/ monitor 4. History of detached retina repair both eyes - ICD9: V15.29, ICD10: Z98.890, Z86.69 RIGHT: - s/p SB/Cryo/C3F8 (01/31/18) - s/p PPV/PFO/EL/AFX/SF6 (12/18/20) - Retina flat, vision 20/25 - Looks good - LEFT - s/p SB/PPV/PFO/EL/AFX/14% C3F8 (01/29/14 [facility]) - Retina flat -continue care with Dr. Banerjee 5. Anxiety and depression - ICD9: 300.00, 311, ICD10: F41.9, F32.A 6. Primary hypertension - ICD9: 401.9, ICD10: I10 -continue care with PCP I have confirmed and edited as necessary the relevant ophthalmic history, review of systems, surgical history, and ophthalmological examination findings as obtained by the ophthalmic technical staff.I have seen and examined Jacky Gonzalez. I have discussed the examination findings, diagnosis, and treatment options with Jacky Gnozalez and/or her family. I have also reviewed and agree withthe assessment and plan as stated above and agree with all its relevant components. I gave the patient the opportunity to ask questions about the findings, diagnosis, and treatment options. Matheus Moncada MD documented in this encounterOhio[facility]11-30-[facility]22 Hospital Discharge instructions Patient Education 03/17/2022 11:25:55 Heart Disease Prevention Heart Disease Prevention Heart disease is the leading cause of in the world. Coronary artery disease is the most common cause of heart disease. This condition results when cholesterol and other substances (plaque) build up inside the chaudhari of the blood vessels that supply your heart muscle (arteries). This buildup inarteries is called atherosclerosis. You can take actions to lower your risk of heart disease. How can heart disease affect me? Heart disease can cause many unpleasant symptoms and complications, such as: Chest pain (angina). Reduced or blocked blood flow to your heart. This can cause: ?Irregular heartbeats (arrhythmias). ?Heart attack. ?Heart failure. What can increase my risk? The following factors may make you more likely to develop this condition: High blood pressure (hypertension). High cholesterol. Smoking. A diet high in saturated fats or trans fats. Lack of physical activity. Obesity. Drinking too much alcohol. Diabetes. Having a family history of heart disease. What actions can I take to prevent heart disease? Nutrition Eat a heart-healthy eating plan as told by your health care provider. Examples include the DASH (Dietary Approaches to Stop Hypertension) eating plan or the Mediterranean diet. Generally, it is recommended that you: ?Eat less salt (sodium). Ask your health care provider how much sodium is safe for you. Most peopleshould have less than 2,300 mg each day. ?Limit unhealthy fats, such as saturated and trans fats, in your diet. You can do this by eating low-fat dairy products, eating less red meat, and avoiding processed foods. ?Eat healthy fats (omega-3 fatty acids). These are found in fish, such as mackerel or salmon. ?Eat more fruits and vegetables. You should try to fill one-half of your plate with fruits and vegetables at each meal. ?Eat more whole grains. ?Avoid foods and drinks that have added sugars. Lifestyle Get regular exercise. This is one of the most important things you can do for your health. Generally, it is recommended that you: ?Exercise for at least 30 minutes on most days of the week (150 minutes each week). The exercise should increase your heart rate and make you sweat (aerobic exercise). ?Add strength exercises on at least 2 days each week. Do not use any products that contain nicotine or tobacco, such as cigarettes and e-cigarettes. These can damage your heart and blood vessels. If you need help quitting, ask your health care provider. Alcohol use Do not drink alcohol if: ?Your health care provider tells you not to drink. ?You are , may be , or are planning to become . If you drink alcohol, limit how much you have: ?0 1 drink a day for women. ?0 2 drinks a day for men. Be aware of how much alcohol is in your drink. In the [place] one drink equals one typical bottle of beer (12 oz), one-half glass of wine (5 oz), or one shot of hard liquor (1 oz). Medicines Take jrig-rdo-gutqsfz and prescription medicines only as told by your health care provider. Ask your health care provider whether you should take an aspirin every day. Taking aspirin may helpreduce your risk of heart disease and stroke. Depending on your risk factors, your health care provider may prescribe medicines to lower your risk of heart disease or to control related conditions. You may take medicine to: ?Lower cholesterol. ?Control blood pressure. ?Control diabetes. General information Keep your blood pressure under control, as recommended by your health care provider. For most healthy people, the upper number of your blood pressure (systolic) should be no higher than 120, and the lower number (diastolic) no higher than 80. Treatment may be needed if your blood pressure is higherthan 130/80. Have your blood pressure checked at least every two years. Your health care provider may check yourblood pressure more often if you have high blood pressure. After age 20, have your cholesterol checked every 4 6 years. If you have risk factors for heart disease, you may need to have it checked more frequently. Treatment may be needed if your cholesterol is high. Have your body mass index (BMI) checked every year. Your health care provider can calculate your BMI from your height and weight. Work with your health care provider to lose weight, if needed, or to maintain a healthy weight. Where to find more information: Centers for Disease Control and Prevention: www.cdc.gov/heartdisease [place] Heart Association: www.heart.org ?Take a free online heart disease risk quiz to better understand your personal risk factors. Summary Heart disease is the leading cause of in the world. Heart disease can cause chest pain, abnormal heart rhythms, heart attack, and heart failure. High blood pressure, high cholesterol, and smoking are the main risk factors for heart disease, although other factors also contribute. You can take actions to lower your chances of developing heart disease. Work with your health care provider to reduce your risk by following a heart-healthy diet, being physically active, and controlling your weight, blood pressure, and cholesterol level. This information is not intended to replace advice given to you by your health care provider. Make sure you discuss any questions you have with your health care provider. Document Released: 11/16/2004 Document Revised: 04/19/2018 Document Reviewed: 04/19/2018 [employer] [place] Patient Education 2019 [employer]. Follow Up Care 02/12/2022 10:16:05 With:ARDEN RODRIGUEZ FAAFP, BEE Willett Address: When: Unknown Comments:see MD barnhart [facility] [place] 11-02-2022 History of Present illness Narrative* Duy Gonzalez MD - 02/17/2022 12:30 PM EDT Jacky Gonzalez is a 66 year old woman who presents today for follow up of right optic disc edema. On 12/28 she developed a static elder scotoma/spot in the right eye that was associated with a dullache in the right eye. This pain began a couple of days prior to the onset of the spot and is intermittent. When present, it does worsen with eye movements. Since onset there was expansion in the size of the spot. She denied preceding transient episodes of curtaining of the vision. There was not a showering of flashes or floaters. The patient denied a clear decrease in color saturation, altered perception of motion, or worsening with increased temperature. The patient had a negative Giant cell arteritis review of systems. She denied a history of hypertension, hyperlipidemia, diabetes, obstructive sleep apnea or other vascular risk factors. 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 She has an Epiretinal membrane right eye. Her initial neuro-ophthalmic exam 01/06 showed worsening of the right visual field defect with dyschromatopsia and no relative afferent pupillary defect was documented prior to dilation (so I was unable to re-check) but she did not have subjective relative afferent pupillary defect at slit lamp. Inflammatory markers were drawn since they had not been and these returned negative/normal. I also ordered a stat MRI of the orbits with and without contrast to exclude a structural etiology (I.e. otic neuritis). At her 01/08 virtual visit we reviewed her MRI of the orbits with and without contrast that was negative for optic neuritis but did demonstrate right optic disc edema and moderate small vessel ischemic disease (leukoariosis). 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 I explained that the vision was not likely to improve significantly and that there were currently no evidence-based treatments. The recommendation was that vascular risk factors such as systemic hypertension, hypercholesterolemia, and diabetes were prevented or well controlled in collaboration withtheir primary care physician - to whom my notes were sent. We also discussed that sleep apnea was apotential risk factor for non-arteritic anterior ischemic optic neuropathy. Per request of patient's daughter, I will placed a glycohemoglobin and fasting lipid panel to get things started and then those results could be forwarded on to Dr. Her as well. I explained to the patient that there was up to a 30% lifetime risk for developing the same condition in the fellow eye, thereby underscoring the importance of vascular risk factor modifcation going forward. ASSESSMENT/PLAN: (H53.451) Other localized visual field defect, right eye (primary encounter diagnosis) (H47.10) Edema of optic disc of right eye (H35.371) Epiretinal membrane (ERM) of right eye Today (February 17, 2022) she reports progressive improvement in her vision in the right since last visit. The patient's neuro-ophthalmic exam today showed significant improvement in the right optic disc edema, subretinal fluid, and visual field defect in that right eye that did appear slightly atypical to begin with for classic non-arteritic anterior ischemic optic neuropathy. I do suspect that the improvement pertains to the significantly decreased subretinal fluid, so after discussing this further with Dr. Moncada who evaluated her at disease onset, he will plan to see her back to ensure there is not a primary ophthalmic etiology that would have caused secondary ischemia to the optic nerve with resultant optic disc edema. Plan for follow up with me will be determined thereafter. Duy Gonzalez MD 1:24 PM 02/17/2022 FOR ADMINISTRATIVE PURPOSES ONLY: My impression of this case is based upon an assessment of the the patient's subacute problems listed above that pose a threat to visual function. 50 minutes were spent on total patient care on the day of service that includes both imyo-tu-iltu and daf-mduq-nt-face time. This time was separate from any of my time spent completing and interpreting the ancillary testing (such as OCT, fundus photos, visual boyer) and sensorimotor exam, if applicable. This time was broken down into: 5 minutes reviewing the patient record before the visit, 10 minutes performing a medically appropriate neuro-ophthalmic history and exam (excluding time spent on the ancillary testing and sensorimotor exam, if applic able), 10 communicating results to the patient/family, 5 minutes counseling / educating the patient, 10 minutes documenting clinical information into the electronic health record of the patient, and 10 minutes coordinating care for the patient. I communicated with Dr. Moncada and Dr. Marr regarding the management of this patient. The assessment and plan were discussed extensively with the patient who was amenable and voiced understanding. documented in this encounterOhio[facility] Hospital Discharge instructions Patient Education 02/12/2022 10:11:49 Basics of Medicine Management Basics of Medicine Management Taking your medicines correctly is an important part of managing or preventing medical problems. Make sure you know what disease or condition your medicine is treating, and how and when to take it. If you do not take your medicine correctly, it may not work well and may cause unpleasant side effects, including serious health problems. What should I do when I am taking medicines? Read all the labels and inserts that come with your medicines. Review the information often. Talk with your pharmacist if you get a refill and notice a change in the size, color, or shape of your medicines. Know the potential side effects for each medicine that you take. Try to get all your medicines from the same pharmacy. The pharmacist will have all your informationand will understand how your medicines will affect each other (interact). Tell your health care provider about all your medicines, including yfbr-blb-eounmqs medicines, vitamins, and herbal or dietary supplements. He or she will make sure that nothing will interact with any of your prescribed medicines. How can I take my medicines safely? Take medicines only as told by your health care provider. ?Do not take more of your medicine than instructed. ?Do not take anyone else's medicines. ?Do not share your medicines with others. ?Do not stop taking your medicines unless your health care provider tells you to do so. ?You may need to avoid alcohol or certain foods or liquids when taking certain medicines. Follow your health care provider's instructions. Do not split, mash, or chew your medicines unless your health care provider tells you to do so. Tell your health care provider if you have trouble swallowing your medicines. For liquid medicine, use the dosing container that was provided. How should I organize my medicines? Know your medicines Know what each of your medicines looks like. This includes size, color, and shape. Tell your healthcare provider if you are having trouble recognizing all the medicines that you are taking. If you cannot tell your medicines apart because they look similar, keep them in original bottles. If you cannot read the labels on the bottles, tell your pharmacist to put your medicines in containers with large print. Review your medicines and your schedule with family members, a friend, or a caregiver. Use a pill organizer Use a tool to organize your medicine schedule. Tools include a weekly pillbox, a written chart, a notebook, or a calendar. Your tool should help you remember the following things about each medicine: ?The name of the medicine. ?The amount (dose) to take. ?The schedule. This is the day and time the medicine should be taken. ?The appearance. This includes color, shape, size, and stamp. ?How to take your medicines. This includes instructions to take them with food, without food, with fluids, or with other medicines. Create reminders for taking your medicines. Use sticky notes, or alarms on your watch, mobile device, or phone calendar. You may choose to use a more advanced management system. These systems have storage, alarms, and visual and audio prompts. Some medicines can be taken on an as-needed basis. These include medicines for nausea or pain. Ifyou take an as-needed medicine, write down the name and dose, as well as the date and time that youtook it. How should I plan for travel? Take your pillbox, medicines, and organization system with you when traveling. Have your medicines refilled before you travel. This will ensure that you do not run out of your medicines while you are away from home. Always carry an updated list of your medicines with you. If there is an emergency, a safe and vault mechanic can quickly see what medicines you are taking. Do not pack your medicines in checked luggage in case your luggage is lost or delayed. If any of your medicines is considered a controlled substance, make sure you bring a letter from your health care provider with you. How should I store and discard my medicines? For safe storage: Store medicines in a cool, dry area away from light, or as directed by your health care provider. Do not store medicines in the bathroom. Heat and humidity will affect them. Do not store your medicines with other chemicals, or with medicines for pets or other household members. Keep medicines away from children and pets. Do not leave them on counters or bedside tables. Store them in high cabinets or on high shelves. For safe disposal: Check expiration dates regularly. Do not take medicines. Discard medicines that are older than the expiration date. Learn a safe way to dispose of your medicines. You may: ?Use a local government, hospital, or pharmacy nuahglyu-ojpe-uvqb program. ?Mix the medicines with inedible substances, put them in a sealed bag or empty container, and throwthem in the trash. What should I remember? Tell your health care provider if you: ?Experience side effects. ?Have new symptoms. ?Have other concerns about taking your medicines. Review your medicines regularly with your health care provider. Other medicines, diet, medical conditions, weight changes, and daily habits can all affect how medicines work. Ask if you need to continue taking each medicine, and discuss how well each one is working. Refill your medicines early to avoid running out of them. In case of an accidental overdose, call your local Poison Control Center at or [facility] immediately. This is important. Summary Taking your medicines correctly is an important part of managing or preventing medical problems. You need to make sure that you understand what you are taking a medicine for, as well as how and when you need to take it. Know your medicines and use a pill organizer to help you take your medicines correctly. In case of an accidental overdose, call your local Poison Control Center at or [facility] immediately. This is important. This information is not intended to replace advice given to you by your health care provider. Make sure you discuss any questions you have with your health care provider. Document Released: 07/20/2011 Document Revised: 03/30/2018 Document Reviewed: 03/30/2018 [employer] [place] Patient Education 2020 [employer]. Follow Up Care 01/11/2022 09:44:14 With:ARDEN RODRIGUEZ FAAFP, Gilma Kaye [facility] Address: When: Unknown Comments:see 1mo. mammo is for [facility] [place] 10-21-2022 History of Present illness Narrative* Wan Bloom MD - 02/05/2022 6:54 AM EDT Encounter Diagnosis ICD-10-CM 1. S/P PKP (penetrating keratoplasty) Z94.7 2. Keratoconus, stable, bilateral H18.613 CORNEAL TOPOGRAPHY PENTACAM OU (BOTH EYES) CORNEAL TOPOGRAPHY ATLAS OU (BOTH EYES) fluorescein-benoxinate 0.25-0.4 % 1 Drop (FLURESS) proparacaine 0.5 % 1 Drop (ALCAINE) tropicamide 1 % 1 Drop (MYDRIACYL) 3. 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 History of detached retina repair Z98.890 Z86.69 follow-up ALK OS - graft remains fairly clear despite 30+ year old graft noted to have increased KNV into graft -- vessels are minimally perfused, appear chronic - look more c/w chronic lens induced hypoxia no evidence of stromal edema or signs of active rejection, no limbal flush patient has been off topical steroids for decades discussed pros/cons of restart topical steroids -- as vessels do not appear inflammatory, likely little benefit recommend re-assess CL fit to ensure not too tight to minimize hypoxic stress hx recent RRD repair OD and NAION OD -- follows with retina and neuro-op can follow-up me 6 months next visit va iop ou attempt confocal training executive os I have confirmed and edited as necessary the relevant ophthalmic history, ROS, and the neuro exam findings as obtained by others. I have seen and examined this patient. I have discussed the case and the management of this patient's care with the Resident/Fellow, if applicable. I also have reviewed and agree with the assessment and plan as stated above and agree with all of its relevant components. Wan Bloom MD documented in this encounterOhio[facility]09-23-2022 History of Present illness Narrative* Duy Gonzalez MD - 01/08/2022 7:10 AM EDT ??This is a telemedicine visit that was performed using the iFit virtual platform with the originating site at my work office and the distant site at the patient's home. The patient and her and daughter were present. Verbal consent to participate in a combined audio and video visit was obtained. This visit occurred during the Coronavirus (COVID-19) Public Health Emergency. The patient consented to this virtual visit. 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 On 12/28 she developed a static elder scotoma/spot in the right eye that was associated with a dullache in the right eye. This pain began a couple of days prior to the onset of the spot and is intermittent. When present, it does worsen with eye movements. Since onset there was expansion in the size of the spot. She denied preceding transient episodes of curtaining of the vision. There was not a showering of flashes or floaters. The patient denied a clear decrease in color saturation, altered perception of motion, or worsening with increased temperature. The patient had a negative Giant cell arteritis review of systems. She denied a history of hypertension, hyperlipidemia, diabetes, obstructive sleep apnea or other vascular risk factors. 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 She has an Epiretinal membrane right eye. Her initial neuro-ophthalmic exam 01/06 showed worsening of the right visual field defect with dyschromatopsia and no relative afferent pupillary defect was documented prior to dilation (so I was unable to re-check) but she did not have subjective relative afferent pupillary defect at slit lamp. Inflammatory markers were drawn since they had not been and these returned negative/normal. I also ordered a stat MRI of the orbits with and without contrast to exclude a structural etiology (I.e. otic neuritis). MRI of the orbits with and without contrast was personally reviewed and my interpretation is that it was negative for optic neuritis but did demonstrate right optic disc edema and moderate small vessel ischemic disease - also known as leukoariosis. Given the complete clinical picture, I do think that this would most likely reflect non-arteritic anterior ischemic optic neuropathy (NAION). I explained to the patient that the vision is not likely to improve significantly, and that furtherprogression of the vision loss can happen over the first 7-10 days. I explained that there are currently no evidence-based treatments. The recommendation is that vascular risk factors such as systemic hypertension, hypercholesterolemia, and diabetes are prevented or well controlled in collaborationwith the primary care physician - to whom we will contact today to ensure receipt of our notes. We also discussed that sleep apnea is a potential risk factor for non-arteritic anterior ischemic opticneuropathy. Per request of patient's daughter, I will place a glycohemoglobin and fasting lipid panel order to get things started and then those results can be forwarded on to Dr. Her as well. I will contact the patient via [facility] regarding those results. I explained to the patient that there is up to a 30% lifetime risk for developing the same condition in the fellow eye, thereby underscoring the importance of vascular risk factor modifcation going forward. I will plan to see the patient back in 6 weeks, unless concerns arise in the interim, for which thepatient was provided my contact information and encouraged to reach out. ER presentation is otherwise advised for any acute onset neurological deficits. Duy Gonzalez MD 7:55 AM 01/08/2022 FOR ADMINISTRATIVE PURPOSES ONLY: My impression of this case is based upon an assessment of the the patient's acute problems listed above that pose a threat to visual and neurologic function. 55 minutes were spent on total patient care on the day of service that includes gxvi-wf-gcyo time and non. The majority of this time was spent counseling and coordinating care. I communicated with Dr. Her regarding the management of this patient. The assessment and plan were discussed extensively with the patient who was amenable and voiced understanding. documented in this encounterOhio[facility]09-22-2022 NoteHNO ID: [id number] Author: RT Rob([place]) Service: ? Author Type: Technologist Type: Progress Notes Filed: 01/07/2022 11:32 AM Note Text: Radiology Service Progress Note DATE OF SERVICE: January 07, 2022 TIME: 11:31 AM PATIENT IDENTITY VERIFICATION COMPLETED USING TWO (2) STANDARD IDENTIFIERS: Name and Date of confirmed by patient verbally. FALL SCREENING: Has the patient had 2 falls in the last year or 1 fall with injury or currently using an Ambulatory Assistive Device (Walker, Cane, Wheelchair, Crutches, etc.)? No PATIENT GENDER DATA: Female. status: : No status: NO. PATIENT RELEVANT IMPLANT DATA REVIEWED: Yes ALLERGIES: Reviewed and unchanged CONTRAST ALLERGY: NO. EXAM: MRI - CONTRAST TYPE: GROUP I OR GROUP III RISK FACTORS: History of hypertension requiring medical therapy CREATININE: Creatinine Date Value Ref Range Status 12/02/2017 0.96 0.58 - 0.96 mg/dL Final 06/01/2017 0.97 (H) 0.58 - 0.96 mg/dL Final 03/23/2017 1.08 (H) 0.58 - 0.96 mg/dL Final eGFR-All Other Races Date Value Ref Range Status 12/02/2017 59 . Final Comment: eGFR (Estimated GFR) Units of measure: mL/min/1.73 meters squared eGFR is derived from the reexpressed MDRD Study equation using the following parameters: serum creatinine, age, gender and race. The creatinine assay has been calibrated to be traceable to IDMS. An eGFR <60 mL/min/1.73m2 for >3 months is consistent with chronic kidney disease. Refer to KDOQI guidelines for clinical interpretation. In patients with unstable renal function, e.g. those with acute kidney injury, the eGFR may not accurately reflect actual GFR. eGFR- Date Value Ref Range Status 12/02/2017 >60 Final P.O.C.T. RESULTS: POC done: Yes, See Lab Tab January 07, 2022 TREATMENT: N/A PERIPHERAL IV DATA: Ambulatory: A peripheral IV was started in the Left antecubital site with a Angio cath: 22 gauge. RADIOLOGY DEPARTMENT: MR; Exam(s) Completed: Head: Orbit/Sinus SIGNATURE: Valerie David RDMS, RVT PATIENT NAME: Jacky Gonzalez DATE: January 07, 2022 TIME: 11:31 [facility]09-22-2022 History of Present illness Narrative* Valerie David, RT(R) - 01/07/2022 11:15 AM EDT Radiology Service Progress Note DATE OF SERVICE: January 07, 2022 TIME: 11:31 AM PATIENT IDENTITY VERIFICATION COMPLETED USING TWO (2) STANDARD IDENTIFIERS: Name and Date of confirmed by patient verbally. FALL SCREENING: Has the patient had 2 falls in the last year or 1 fall with injury or currently using an Ambulatory Assistive Device (Walker, Cane, Wheelchair, Crutches, etc.)? No PATIENT GENDER DATA: Female. status: : No status: NO. PATIENT RELEVANT IMPLANT DATA REVIEWED: Yes ALLERGIES: Reviewed and unchanged CONTRAST ALLERGY: NO. EXAM: MRI - CONTRAST TYPE: GROUP I OR GROUP III RISK FACTORS: History of hypertension requiring medical therapy CREATININE: Creatinine Date Value Ref Range Status 12/02/2017 0.96 0.58 - 0.96 mg/dL Final 06/01/2017 0.97 (H) 0.58 - 0.96 mg/dL Final 03/23/2017 1.08 (H) 0.58 - 0.96 mg/dL Final eGFR-All Other Races Date Value Ref Range Status 12/02/2017 59 . Final Comment: eGFR (Estimated GFR) Units of measure: mL/min/1.73 meters squared eGFR is derived from the reexpressed MDRD Study equation using the following parameters: serum creatinine, age, gender and race. The creatinine assay has been calibrated to be traceable to IDMS. An eGFR <60 mL/min/1.73m2 for >3 months is consistent with chronic kidney disease. Refer to KDOQI guidelines for clinical interpretation. In patients with unstable renal function, e.g. those with acute kidney injury, the eGFR may not accurately reflect actual GFR. eGFR- Date Value Ref Range Status 12/02/2017 >60 Final P.O.C.T. RESULTS: POC done: Yes, See Lab Tab January 07, 2022 TREATMENT: N/A PERIPHERAL IV DATA: Ambulatory: A peripheral IV was started in the Left antecubital site with a Angio cath: 22 gauge. RADIOLOGY DEPARTMENT: MR; Exam(s) Completed: Head: Orbit/Sinus SIGNATURE: Valerie David RDMS, RVT PATIENT NAME: Jacky Gonzalez DATE: January 07, 2022 TIME: 11:31 AM documented in this encounterOhiohealth [facility]09-21-2022 History of Present illness Narrative* Duy Gonzalez MD - 01/06/2022 11:53 AM EDT Jacky Gonzalez is a 66 year old woman who was referred today by Dr. Matheus Moncada for right optic disc edema. As per patient and chart review, on 12/28 she developed static elder scotoma/spot in the right eye that was associated with a dull ache in the right eye. This pain began a couple of days prior to the onset of the spot and is intermittent. When present, it does worsen with eye movements. Since onset there has been an expansion in the size of the spot. The patient denies preceding transient episodes of curtaining of the vision. There was not a showering of flashes or floaters. The patient has not been a clear decrease in color saturation, altered perception of motion, or worsening with increased temperature. The patient denies fevers, chills, night sweats at onset, pain with chewing, temporal headache, scalp tenderness, new hip or shoulder pain, or other features of giant cell arteritis (GCA). Inflammatory markers (ESR/CRP) were not obtained. The patient denies a history of hypertension, hyperlipidemia, diabetes, KEREN,. 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 She has an Epiretinal membrane right eye. 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 Though her giant cell arteritis review of systems is negative, since it has not yet been performed I will have inflammatory markers drawn today. I will also proceed with a stat MRI of the orbits withand without contrast to exclude a structural etiology (I.e. otic neuritis) underlying the patient'ssymptoms and exam findings, which would certainly be an atypical case, but given the uveitis history it is worth ruling out. I will then plan to review the results of this with the patient via virtual visit. Duy Gonzalez MD 4:14 PM 01/06/2022 FOR ADMINISTRATIVE PURPOSES ONLY: My impression of this case is based upon an assessment of the the patient's subacute problems listed above that pose a threat to visual and neurologic function. 70 minutes were spent on total patientcare on the day of service that includes both mgeo-zr-shnj and dzp-xwas-dt-face time. This time wasseparate from any of my time spent completing and interpreting the ancillary testing (such as OCT, fundus photos, visual boyer) and sensorimotor exam, if applicable. This time was broken down into: 5 minutes reviewing the patient record before the visit, 20 minutes performing a medically appropriate neuro-ophthalmic history and exam (excluding time spent on the ancillary testing and sensorimotorexam, if applicable), 10 communicating results to the patient/family, 10 minutes counseling / educating the patient, 10 minutes documenting clinical information into the electronic health record of the patient, 5 minutes ordering tests/medications/procedures, and 10 minutes coordinating care for the patient. I communicated with Dr. Moncada and Dr. Her regarding the management of this patient. Theassessment and plan were discussed extensively with the patient who was amenable and voiced understanding. documented in this encounterOhiohealth [facility]09-13-2022 History of Present illness Narrative* Matheus Moncada MD - 12/29/2021 4:26 PM EDT ASSESSMENT/PLAN: 1. Optic disc edema of right eye - ICD9: 377.00, ICD10: H47.10 (primary diagnosis) - Consult Neuro-Ophthalmology for further evaluation and treatment 2. Epiretinal membrane (ERM) of right eye - ICD9: 362.56, ICD10: H35.371 - Monitor 3. Hx of detached retina repair - ICD9: V15.29, ICD10: Z98.890, Z86.69 RIGHT: - s/p SB/Cryo/C3F8 (01/31/18) - s/p PPV/PFO/EL/AFX/SF6 (12/18/20) - Retina flat, vision 20/25 - Looks good - LEFT - s/p SB/PPV/PFO/EL/AFX/14% C3F8 (01/29/14 [facility]) - Retina flat 4. Keratoconus, stable, bilateral - ICD9: 371.61, ICD10: H18.613 - s/p corneal transplant (ALK) left eye x 30 yrs ago - follows with Dr. Patton for CL fitting - clear graft today - CPM per Dr. Bloom (last seen 2020) 5. Essential hypertension - ICD9: 401.9, ICD10: I10 - Manage care with primary care physician I have confirmed and edited as necessary the relevant ophthalmic history, review of systems, surgical history, and ophthalmological examination findings as obtained by the ophthalmic technical staff.I have seen and examined Jacky Gonzalez. I have discussed the examination findings, diagnosis, and treatment options with Jacky Gonzalez and/or her family. I have also reviewed and agree withthe assessment and plan as stated above and agree with all its relevant components. I gave the patient the opportunity to ask questions about the findings, diagnosis, and treatment options. 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 Last seen on 05/14/21. Patient reports not changes in vision or general health. 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 Keratoconus Both eyes - s/p corneal transplant (ALK) left eye x 30 yrs ago - follows with Dr. Patton for CL fitting - clear graft today - CPM per Dr. Bloom (last seen 2020) 4. Pseudophakia, Both Eyes - s/p CE/PCIOL with Dr. Bloom - s/p Cataract extraction 05/05/20 Right eye 5. 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 Patricia 6. Epiretinal membrane Right eye - Not visually significant Nadeem Prince, fellow I have confirmed and edited as necessary the relevant ophthalmic history, ROS, and the clinical/neuro exam findings as obtained by others. I have seen and examined this patient. I have discussed the case and the management of this patient's care with the Resident/Fellow, if applicable. I also have reviewed and agree with the assessment and plan as stated above and agree with all of its relevant components on November 11, 2021. MD Mandie Steward [facility] Endowed Chair of Ophthalmology Research Professor of Ophthalmology, [facility] Vitreoretinal Staff, [facility] [place] [facility] History of Past illness Narrative* ProblemNoted DateResolved DateCombined forms of age-related cataract of right eye/Encounter for long-term (current) use of other high-risk [id number] as of this encounter (statuses as of 07/06/2022) [address]15-2021 History of Past illness Narrative* ProblemNoted Date Diagnosed DateResolved DateCombined forms of age-related cataract of right eye /Encounter for long-term (current) use of other high-risk [id number] as of this encounter (statuses as of 03/18/2023) [address]15-2021 History of Past illness Narrative* ProblemNoted Date Diagnosed DateResolved DateCombined forms of age-related cataract of right eye /Encounter for long-term (current) use of other high-risk [id number] as of this encounter (statuses as of 06/23/2023) [place] [address]-15-2021 History of Past illness Narrative* ProblemNoted Date Diagnosed DateResolved DateCombined forms of age-related cataract of right eye /Encounter for long-term (current) use of other high-risk [id number] as of this encounter (statuses as of 06/23/2023) [address]15-2021 History of Past illness Narrative* ProblemNoted Date Diagnosed DateResolved DateCombined forms of age-related cataract of right eye /Encounter for long-term (current) use of other high-risk [id number] as of this encounter (statuses as of 07/29/2023) [facility] Future Appointments Appointment Date:03/17/2022 10:40:00 AM Scheduled Provider:Gilma HER MD, FAAFP Location:[facility] [place] Appointment Type: Open Diagnostic Tests Pending * Lipid Panel 02/12/22 * Comprehensive Metabolic Panel 02/12/22 [facility] [place] Evaluation + Plan note Future Appointments Appointment Date:09/16/2022 11:20:00 AM Scheduled Provider:Gilma HER MD, FAAFP Location:[facility] Appointment Type: Open [facility] [place] Evaluation + Plan note Future Appointments Appointment Date:12/30/2022 11:00:00 AM Scheduled Provider: Location:[facility] Appointment Type: Medicare Wellness Initial Appointment Date:03/18/2023 11:20:00 AM Scheduled Provider:Gilma HER MD, FAAFP Location:[facility] Appointment Type: Open [facility] Evyenniation + Plan note Future Appointments Appointment Date:04/13/2023 10:00:00 AM Scheduled Provider: Location:[facility] Appointment Type: Nurse Visit Appointment Date:09/20/2023 11:00:00 AM Scheduled Provider:GLADYS Conde Tammy L. Location:[facility] Appointment Type: Open Appointment Date:01/13/2024 09:30:00 AM Scheduled Provider: Location:[facility] Appointment Type: Medicare Wellness Subsequent Future Scheduled Tests Laboratory* Vitamin D 25 Hydroxy 03/18/23 * Comprehensive Metabolic Panel 03/18/23 * Lipid Panel 03/18/23 [facility] Evaluation + Plan note Future Appointments Appointment Date:05/25/2023 10:40:00 AM Scheduled Provider:GLADYS Conde Tammy L. Location:[facility] Appointment Type:FM Open Appointment Date:01/13/2024 09:30:00 AM Scheduled Provider: Location:[facility] Appointment Type: Medicare Wellness Subsequent Future Scheduled Tests Laboratory* Vitamin D 25 Hydroxy 03/18/23 * Comprehensive Metabolic Panel 03/18/23 * Lipid Panel 03/18/23 [facility] Evaluation + Plan note Future Appointments Appointment Date:06/29/2023 11:20:00 AM Scheduled Provider:GLADYS Conde Tammy L. Location:[facility] Appointment Type: Open Appointment Date:01/13/2024 09:30:00 AM Scheduled Provider: Location:[facility] Appointment Type:FM Medicare Wellness Subsequent Diagnostic Tests Pending * CBC w/ Auto Diff 05/25/23 * Comprehensive Metabolic Panel 05/25/23 * Lipid Panel 05/25/23 * Vitamin D 25 Hydroxy 05/25/23 Future Scheduled Tests Laboratory* Vitamin D 25 Hydroxy 03/18/23 * Comprehensive Metabolic Panel 03/18/23 * Lipid Panel 03/18/23 [facility] Evaluation + Plan note Future Appointments Appointment Date:11/01/2023 10:40:00 AM Scheduled Provider:GLADYS Conde Tammy L. Location:[facility] Appointment Type: Open Appointment Date:01/13/2024 09:30:00 AM Scheduled Provider: Location:[facility] Appointment Type:FM Medicare Wellness Subsequent Future Scheduled Tests Laboratory* Vitamin D 25 Hydroxy 03/18/23 * Comprehensive Metabolic Panel 03/18/23 * Lipid Panel 03/18/23 [facility] Evaluation + Plan note Future Appointments Appointment Date:01/13/2024 09:30:00 AM Scheduled Provider: Location:[facility] Appointment Type:FM Medicare Wellness Subsequent Appointment Date:03/09/2024 11:00:00 AM Scheduled Provider:GLADYS Conde Tammy L. Location:[facility] Appointment Type: Open Future Scheduled Tests Laboratory* Vitamin D 25 Hydroxy 03/18/23 * Comprehensive Metabolic Panel 03/18/23 * Lipid Panel 03/18/23 [facility] Evaluation + Plan note Future Appointments Appointment Date:03/09/2024 11:00:00 AM Scheduled Provider:GLADYS Conde Tammy L. Location:[facility] Appointment Type: Open Appointment Date:01/14/2025 09:30:00 AM Scheduled Provider: Location:[facility] Appointment Type:FM Medicare Wellness Subsequent Future Scheduled Tests Laboratory* Vitamin D 25 Hydroxy 03/18/23 * Comprehensive Metabolic Panel 03/18/23 * Lipid Panel 03/18/23 [facility] [place] Evaluation + Plan note Future Appointments Appointment Date:07/10/2024 11:00:00 AM Scheduled Provider:GLADYS Conde Tammy L. Location:[facility] Appointment Type: Open Appointment Date:01/14/2025 09:30:00 AM Scheduled Provider: Location:[facility] Appointment Type:FM Medicare Wellness Subsequent Future Scheduled Tests Laboratory* Vitamin D 25 Hydroxy 03/18/23 * Comprehensive Metabolic Panel 03/18/23 * Lipid Panel 03/18/23 [facility] [place] evaluation + Plan note Future Appointments Appointment Date:07/10/2024 11:00:00 AM Scheduled Provider:GLADYS Conde Tammy L. Location:[facility] Appointment Type: Open Appointment Date:01/14/2025 09:30:00 AM Scheduled Provider: Location:[facility] Appointment Type: Medicare Wellness Subsequent Diagnostic Tests Pending * Urine Culture 06/11/24 [facility] Evaluation + Plan note Future Appointments Appointment Date:07/10/2024 11:00:00 AM Scheduled Provider:GLADYS Conde Tammy L. Location:[facility] Appointment Type: Open Appointment Date:01/14/2025 09:30:00 AM Scheduled Provider: Location:[facility] Appointment Type:FM Medicare Wellness Subsequent [facility] [place] Evaluation + Plan note Future Appointments Appointment Date:11/14/2024 11:00:00 AM Scheduled Provider:GLADYS Conde Tammy L. Location:[facility] Appointment Type: Open Appointment Date:01/14/2025 09:30:00 AM Scheduled Provider: Location:[facility] Appointment Type:FM Medicare Wellness Subsequent [facility] [place] Evaluation + Plan note Future Appointments Appointment Date:11/14/2024 11:00:00 AM Scheduled Provider:GLADYS Conde Tammy L. Location:[facility] [place] Appointment Type:FM Open Appointment Date:01/14/2025 09:30:00 AM Scheduled [facility]FM Medicare Wellness Subsequent Future Scheduled Tests Radiology* CT Urogram 11/13/24 [facility] Evaluation + Plan note Future Appointments Appointment Date:11/29/2024 10:00:00 AM Scheduled Provider: Location[facility] Appointment Type:CT Abdomen/Pelvis Combo () Appointment Date:01/14/2025 09:30:00 AM Scheduled Provider: Location:[facility] [place] Appointment Type: Medicare Wellness Subsequent Appointment Date:05/15/2025 11:00:00 AM Scheduled Provider:GLADYS Conde Tammy L. [facility] Type: Open Diagnostic Tests Pending * Lipid Panel 11/14/24 Future Scheduled Tests Radiology* CT Urogram 11/29/24 [facility] [place] Evaluation + Plan note Future Appointments Appointment Date:12/07/2024 10:00:00 AM Scheduled Provider: Location:[facility] Appointment Type:Urology CALL PAT FT Appointment Date:12/10/2024 03:00:00 PM Scheduled Provider: Location:[facility] Appointment Type:Urology FT Appointment Date:01/14/2025 09:30:00 AM Scheduled Provider: Location:[facility] [place] Appointment Type: Medicare Wellness Subsequent Appointment Date:05/15/2025 11:00:00 AM Scheduled Provider:GLADYS Conde Tammy L. [facility] Type: Open [facility] Evaluation + Plan note Future Appointments Appointment Date:12/14/2024 11:00:00 AM Scheduled Provider:GLADYS Conde Tammy L. Location:[facility] Appointment Type:FM Open Appointment Date:01/14/2025 09:30:00 AM Scheduled Provider: Location:[facility] Appointment Type: Medicare Wellness Subsequent Appointment Date:01/14/2025 01:50:00 PM Scheduled Provider:Kemi Greenberg Location:[facility] Appointment Type:URO Office Visit Appointment Date:05/15/2025 11:00:00 AM Scheduled Provider:GLADYS Conde Tammy L. Location:[facility] Appointment Type: Open Future Scheduled Tests Radiology* XR Abdomen 1 View 12/07/24 * US Renal 12/07/24 [facility] Evaluation + Plan note Future Appointments Appointment Date:12/18/2024 09:00:00 AM Scheduled Provider: [facility] Appointment Type:US Abdominal/Pelvis (FT) Appointment Date:12/18/2024 09:30:00 AM Scheduled Provider: Location:[facility] Appointment Type:XR Abdomen () Appointment Date:12/21/2024 09:00:00 AM Scheduled Provider:GLADYS Conde Tammy L. Location:[facility] Appointment Type: Open Appointment Date:01/14/2025 09:30:00 AM Scheduled Provider: Location:[facility] Appointment Type: Medicare Wellness Subsequent Appointment Date:01/14/2025 01:50:00 PM Scheduled Provider:Kemi Greenberg Location:[facility] Appointment Type:URO Office Visit Appointment Date:05/15/2025 11:00:00 AM Scheduled Provider:GLADYS Conde Tammy L. Location:[facility] Appointment Type: Open Future Scheduled Tests Radiology* XR Abdomen 1 View 12/18/24 * US Renal 12/18/24 [facility] Evaluation + Plan note Future Appointments Appointment Date:12/28/2024 10:40:00 AM Scheduled Provider:GLADYS Conde Tammy L. Location:[facility] Appointment Type:FM Open Appointment Date:01/14/2025 09:30:00 AM Scheduled Provider: Location:[facility] Appointment Type:FM Medicare Wellness Subsequent Appointment Date:01/14/2025 01:50:00 PM Scheduled Provider:Kemi Greenberg Location:[facility] Appointment Type:URO Office Visit Appointment Date:05/15/2025 11:00:00 AM Scheduled Provider:GLADYS Conde Tammy L. Location:[facility] Appointment Type:[facility] + Plan note Future Appointments Appointment Date:01/11/2025 10:40:00 AM Scheduled Provider:GLADYS Conde Tammy L. Location:[facility] Appointment Type: Open Appointment Date:01/14/2025 09:30:00 AM Scheduled Provider: Location:[facility] Appointment Type: Medicare Wellness Subsequent Appointment Date:01/14/2025 01:50:00 PM Scheduled Provider:Kemi Greenberg Location:[facility] Appointment Type:URO Office Visit Appointment Date:05/15/2025 11:00:00 AM Scheduled Provider:GLADYS Conde Tammy L. Location:[facility] Appointment Type:[facility] + Plan note Future Appointments Appointment Date:01/14/2025 09:30:00 AM Scheduled Provider: Location:[facility] Appointment Type: Medicare Wellness Subsequent Appointment Date:01/14/2025 01:50:00 PM Scheduled Provider:Kemi Greenberg Location:[facility] Appointment Type:URO Office Visit Appointment Date:05/15/2025 11:00:00 AM Scheduled Provider:GLADYS Conde Tammy L. Location:[facility] Appointment Type:[facility] [place] Evaluation + Plan note Future Appointments Appointment Date:05/15/2025 11:00:00 AM Scheduled Provider:Viral [employer]-Stacia POSADA Location:[facility] [place] Appointment Type:FM Open Appointment Date:07/15/2025 11:00:00 AM Scheduled Provider:MAITE MORAN MD Location[place] [place] [place]ricks[place] Appointment Type:URO Office Visit Appointment Date:01/14/2026 09:30:00 AM Scheduled Provider: Location:[facility] [place] Appointment Type: Medicare Wellness [facility] [place] Evaluation note* Diagnosis Malignant neoplasm of sigmoid colon (HCC) Malignant neoplasm of sigmoid colon Iron deficiency anemia due to chronic blood loss Iron deficiency anemia secondary to blood loss (chronic) 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 documented in this encounter [facility] Phone: evaluation note* Diagnosis Malignant neoplasm of sigmoid colon (HCC) Malignant neoplasm of sigmoid colon 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 documented in this encounter [facility] Phone: evaluation note* Diagnosis Hypertension, unspecified type- Primary Anxiety Anxiety state, unspecified documented in this encounter [facility] Phone: evaluation note* Diagnosis Encounter for care related to vascular access port- Primary Fitting and adjustment of vascular catheter Malignant neoplasm of sigmoid colon (HCC) Malignant neoplasm of sigmoid colon documented in [place] encounter [facility] [place] [place] Diagnosis Malignant neoplasm of sigmoid colon (HCC) Malignant neoplasm of sigmoid colon 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 documented in this encounter [facility] Phone: evaluation note* Diagnosis Malignant neoplasm of sigmoid colon (HCC) Malignant neoplasm of sigmoid colon 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 documented in this encounter [facility] Phone: evaluation note* Diagnosis Malignant neoplasm of sigmoid colon (HCC)- Primary Malignant neoplasm of sigmoid colon Encounter for care related to vascular access port Fitting and adjustment of vascular catheter documented in this encounter [facility] Phone: evaluation note* Diagnosis Encounter for care related to vascular access port- Primary Fitting and adjustment of vascular catheter Malignant neoplasm of sigmoid colon (HCC) Malignant neoplasm of sigmoid colon documented in this encounter [facility] Phone: evaluation note* Diagnosis Encounter for care related to vascular access port- Primary Fitting and adjustment of vascular catheter Malignant neoplasm of sigmoid colon (HCC) Malignant neoplasm of sigmoid colon documented in this encounter [facility] Phone: evaluation note* Diagnosis Encounter for care related to vascular access port- Primary Fitting and adjustment of vascular catheter Malignant neoplasm of sigmoid colon (HCC) Malignant neoplasm of sigmoid colon documented in this encounter [facility] Phone: evaluation note* Diagnosis 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 [facility] encounter [facility] Diagnosis Optic disc edema of right eye- Primary Papilloedema, unspecified Epiretinal membrane (ERM) of right eye Hx of detached retina repair Personal history of surgery to other organs Keratoconus, stable, bilateral Essential hypertension Unspecified essential hypertension [facility] Diagnosis Optic disc edema- Primary Papilloedema, unspecified 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 Pain in right eye Pain in or around eye History of uveitis Personal history of other disorders of nervous system and sense organs Epiretinal membrane (ERM) of right eye [facility] Optic disc edema Papilloedema, unspecified 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 History of uveitis Personal history of other disorders of nervous system and sense organs Pain in right eye Pain in or around eye [facility] Diagnosis 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 Ischemic optic neuropathy Optic disc edema Papilloedema, unspecified 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 Primary hypertension Unspecified essential hypertension Other abnormal glucose Other abnormal glucose [facility] Diagnosis S/P PKP (penetrating keratoplasty)- 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, stable, bilateral Corneal neovascularization of left eye Corneal neovascularization, unspecified 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 Ischemic optic neuropathy History of detached retina repair Personal history of surgery to other organs [facility] Diagnosis Other localized visual field defect, right eye- Primary Edema of optic disc of right eye Epiretinal membrane (ERM) of right eye [facility] Diagnosis Malignant neoplasm of sigmoid colon (HCC) Malignant neoplasm of sigmoid colon documented in this encounter [facility] Phone: evaluation note* Diagnosis Epiretinal membrane (ERM) of left eye- Primary Keratoconus, stable, bilateral Pseudophakia, both eyes Lens replaced by other means History of detached retina repair both eyes Personal history of surgery to other organs Anxiety and depression Dysthymic disorder Primary hypertension Unspecified essential hypertension Optic disc edema Papilloedema, unspecified Epiretinal membrane (ERM) of right eye [facility] Diagnosis Malignant neoplasm of sigmoid colon (HCC) Malignant neoplasm of sigmoid colon Elevated CEA Elevated carcinoembryonic antigen [CEA] documented in this encounter [facility]: evaluation note* Diagnosis Malignant neoplasm of sigmoid colon (HCC) Malignant neoplasm of sigmoid colon Elevated CEA Elevated carcinoembryonic antigen [CEA] 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 Iron deficiency anemia due to chronic blood loss Iron deficiency anemia secondary to blood loss (chronic) documented in this encounter [facility]* Diagnosis Chorioretinitis of right eye Chorioretinitis, unspecified 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 Serous retinal detachment documented [facility] this encounter [facility]* Diagnosis Acute left-sided low back pain with left-sided sciatica- Primary documented in this encounter [facility]* Diagnosis Malignant neoplasm of sigmoid colon (HCC) Malignant neoplasm of sigmoid colon Elevated CEA Elevated carcinoembryonic antigen [CEA] 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 Iron deficiency anemia due to chronic blood loss Iron deficiency anemia secondary to blood loss (chronic) documented in this encounter [facility]* Diagnosis Keratoconus, stable, bilateral- Primary Cornea replaced by transplant [facility] encounter [facility]* Diagnosis KEREN (obstructive sleep apnea) Obstructive sleep apnea (adult) (pediatric) documented in this encounter [facility]* Diagnosis Keratoconus, stable, bilateral- Primary Left corneal scar with opacity Cornea replaced by transplant [facility]* Diagnosis Chorioretinitis of right eye Chorioretinitis, unspecified 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 Serous retinal detachment [facility] Diagnosis Keratoconus, stable, bilateral- Primary [facility]* Diagnosis Keratoconus, stable, bilateral- Primary Cornea replaced by transplant [facility] this encounter [facility]* Diagnosis Malignant neoplasm of sigmoid colon (HCC) Malignant neoplasm of sigmoid colon Elevated CEA Elevated carcinoembryonic antigen [CEA] History of colon cancer Personal history of malignant neoplasm of large intestine documented in this encounter [facility] note* Diagnosis Chorioretinitis of right eye- Primary Chorioretinitis, unspecified Panuveitis of both eyes Panuveitis documented in this encounter [facility]* Diagnosis Preop examination- Primary Preoperative examination, unspecified 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, left Primary hypertension Unspecified essential hypertension PAF (paroxysmal atrial fibrillation) (HCC) Atrial fibrillation Dyslipidemia Other and unspecified hyperlipidemia KEREN on CPAP Obstructive sleep apnea (adult) (pediatric) Anxiety and depression Dysthymic disorder History of colon cancer Personal history of malignant neoplasm of large intestine 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 [facility] Diagnosis S/P eye surgery- Primary Other states following surgery of eye and adnexa documented [facility] this encounter [facility]* Diagnosis 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- Primary [facility] Diagnosis PAF (paroxysmal atrial fibrillation) (HCC)- Primary Atrial fibrillation documented [facility] this encounter [facility]* Diagnosis Paroxysmal atrial fibrillation (HCC) Atrial fibrillation documented in this encounter [facility] note* Diagnosis 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- Primary S/P eye surgery Other states following surgery of eye and adnexa Panuveitis of both eyes Panuveitis [facility] [facility] Diagnosis AF (paroxysmal atrial fibrillation) (HCC)- Primary Atrial fibrillation [facility] Diagnosis 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 note* Diagnosis Malignant neoplasm of sigmoid colon (HCC) Malignant neoplasm of sigmoid colon Iron deficiency anemia due to chronic blood loss Iron deficiency anemia secondary to blood loss (chronic) Elevated CEA Elevated carcinoembryonic antigen [CEA] documented in this encounter [facility] note* Diagnosis Encounter for care related to vascular access port- Primary Fitting and adjustment of vascular catheter Malignant neoplasm of sigmoid colon (HCC) Malignant neoplasm of sigmoid colon documented in this encounter [facility] note* Diagnosis Encounter for care related to vascular access port- Primary Fitting and adjustment of vascular catheter Malignant neoplasm of sigmoid colon (HCC) Malignant neoplasm of sigmoid colon documented in this encounter [facility] note* Diagnosis Paroxysmal atrial fibrillation (HCC) Atrial fibrillation Chronic anticoagulation Encounter for long-term (current) use of anticoagulants Malignant neoplasm of sigmoid colon (HCC) Malignant neoplasm of sigmoid colon Primary hypertension Unspecified essential hypertension Dyslipidemia Other and unspecified hyperlipidemia KEREN (obstructive sleep apnea) Obstructive sleep apnea (adult) (pediatric) Goiter Goiter, unspecified Abnormal ECG Nonspecific abnormal electrocardiogram (ECG) (EKG) documented in this encounter [facility] note* Diagnosis Encounter for care related to vascular access port- Primary Fitting and adjustment of vascular catheter Malignant neoplasm of sigmoid colon (HCC) Malignant neoplasm of sigmoid colon documented in this encounter [facility] note* Diagnosis Malignant neoplasm of sigmoid colon (HCC) Malignant neoplasm of sigmoid colon Iron deficiency anemia due to chronic blood loss Iron deficiency anemia secondary to blood loss (chronic) Elevated CEA Elevated carcinoembryonic antigen [CEA] documented in this encounter [facility] note* Diagnosis Chorioretinitis of right eye Chorioretinitis, unspecified 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 noteNo assessment information availableOhio Valley [facility]tr Work Phone: Evaluation note* Diagnosis Hypertension, unspecified type- Primary Hypokalemia Hypopotassemia documented in this encounter [facility] note* Diagnosis Paroxysmal atrial fibrillation (HCC) Atrial fibrillation Chronic anticoagulation Encounter for long-term (current) use of anticoagulants Primary hypertension Unspecified essential hypertension Dyslipidemia Other and unspecified hyperlipidemia KEREN (obstructive sleep apnea) Obstructive sleep apnea (adult) (pediatric) documented in this encounter [facility] Narrative No data available for this section [facility] Discharge instructions* Attachments The following attachments cannot be sent through Care Everywhere. * Anxiety Disorder (Lao) * Hypertension: General Info (Lao) [facility] Discharge instructions No data available for this section [facility] Discharge instructions Additional Instructions Take tylenol, motrin for pain Resume blood thinners in 48 hrs With stent in, burning on urination, urgency, blood in urine is expected. Hydrate w/ at least 2L/day Take out stent in 5 days. Take tylenol 30 mins prior to removing F/U in 6 weeks w/ KUB, LEX prior Flomax, pyridium for stent discomfort. Roxicodone for breakthroughOhio [facility] Ctr Work Phone: Hospital Discharge instructions* Attachments The following attachments cannot be sent through Care Everywhere. * MAGNO Inhibitors: General Info (Lao) * Hypertension: General Info (Lao) [facility] No data available for this section [facility] Reason for referral (narrative) Referred by: ARDEN RODRIGUEZ FAA, Gilma Kaye [facility] Recgbp for referral (narrative)* Outpatient Procedure (Routine) - AuthorizedSpecialtyDiagnoses / ProceduresReferred By Contact [facility] Diagnoses PAF (paroxysmal atrial fibrillation) (HCC) Procedures ECG COMPLETE ECG ROUTINE ECG W/LEAST 12 LDS W/I&R Reji Richardson MD [address] [place] [address] [facility] [place] [address] [place] [address] Referral IDStatusReasonStart DateExpiration DateVisits RequestedVisits [id number] Auto-Generated Referral / [facility] for referral (narrative)No reason for referral information availableWooster [facility] Work Phone: Reason for visit Narrative* Treatment Plan (Routine) StatusReasonSpecialtyDiagnoses / ProceduresReferred By ContactReferred To ContactAuthorized Diagnoses Malignant neoplasm of sigmoid colon (HCC) Encounter for care related to vascular access port Procedures FOLFOX Raymundo Luque MD [address] [address] [facility] [address] [place] [id number] [facility] Phone: reason for visit Narrative* Treatment Plan and Therapy Plan (Routine) - AuthorizedSpecialtyDiagnoses / ProceduresReferred By Contact Referred To Contact Diagnoses Encounter for care related to vascular access port Malignant neoplasm of sigmoid colon (HCC) Procedures WY IRON SUCROSE INJECTION Raymundo Luque MD [address] [place] [address] Phone: tel: Raymundo Luque MD [address] [place] [address] Phone: tel: Referral IDStatusRachelasonPiketon DateExpiration DateVisits RequestedVisits [id number]/[id number]/ [facility]ardoOur [facility] Narrative* Cardiology (Routine) - Not Required - RTASpecialtyDiagnoses / ProceduresReferred By ContactReferred To ContactCardiology Diagnoses Paroxysmal atrial fibrillation (HCC) Chronic anticoagulation Malignant neoplasm of sigmoid colon (HCC) Primary hypertension Dyslipidemia KEREN (obstructive sleep apnea) Goiter Abnormal ECG Procedures Echo (TTE) complete (PRN contrast/bubble/strain/3D) WY ECHO TTHRC R-T 2D W/WOM-MODE COMPL SPEC&COLR D WY TTE W OR WO FOL WCON,DOPPLER Shadi Loyd MD [address] [place] [address] [place] [address] Phone: tel: fax: Referral IDStatusReasonStart DateExpiration DateVisits RequestedVisits [id number] Required - [facility] Advance Directives No Advanced Directives Records FoundDocuments on File TypeDate RecordedPatient RepresentativeExplanationAdvance Directives and Living WillPower of AttorneyCode StatusDate ActivatedDate InactivatedCommentsFull Code 12/26/2018 10:53 AM12/26/2018 1:56 PMTypeDate RecordedPatient Director Of Materials ExplanationAdvance Directives and Living WillPower of AttorneyCode StatusDate ActivatedDate InactivatedCommentsFull Code12/26/2018 10:53 AM12/26/2018 1:56 PM TypeDate RecordedPatient RepresentativeExplanationACP-Advance DirectiveACP-Power of AttorneyTypeDate RecordedPatient RepresentativeExplanationACP-Advance DirectiveACP-Power of AttorneyCode StatusDate ActivatedDate InactivatedComments Full Code12/26/2018 10:53 AMTypeDate RecordedPatient RepresentativeExplanation Advance Directive(s)Advance Directive(s)12/18/2020 1:04 PMAdvance Directive(s) 04/04/2020 1:44 PMAdvance Directive(s)06/25/2015 11:43 AMAdvance Directive(s) 06/13/2015 9:18 AMAdvance Directive(s)06/07/2015 11:36 AMCode StatusDate Activated Date InactivatedCommentsFull Code12/26/2018 10:53 AM12/26/2018 1:56 PMCode Status Date ActivatedDate InactivatedCommentsFull Code12/26/2018 10:53 AM12/26/2018 1:56 PMCode StatusDate ActivatedDate InactivatedCommentsFull Code04/03/2023 8:51 AM 04/04/2023 6:13 PMCode StatusDate ActivatedDate InactivatedCommentsFull Code 12/26/2018 10:53 AM12/26/2018 1:56 PMNameRelationshipHealthcare Agent Relationship CommunicationRebecca FisherChildPrimary Decision Maker* * * NameRelationshipHealthcare Agent RelationshipCommunicationRebecca FisherChild Primary Decision Maker* * * NameRelationshipHealthcare Agent RelationshipCommunicationRebecca FisherChild Primary Decision Maker* * * NameRelationshipHealthcare Agent RelationshipCommunicationRebecca FisherChild Primary Decision Maker* * * NameRelationshipHealthcare Agent RelationshipCommunicationRebecca FisherChild Primary Decision Maker* * * Code StatusDate ActivatedDate InactivatedCommentsFull Code04/03/2023 8:51 AM 04/04/2023 6:13 PMCode StatusDate ActivatedDate InactivatedCommentsFull Code 12/26/2018 10:53 AM12/26/2018 1:56 PMNameRelationshipHealthcare Agent Relationship CommunicationRebecca FisherChildPrimary Decision Maker* * * NameRelationshipHealthcare Agent RelationshipCommunicationRebecca FisherChild Primary Decision Maker* * * NameRelationshipHealthcare Agent RelationshipCommunicationRebecca FisherChild Primary Decision Maker* * * Date ActivatedDate OzydoufilvsUvzgpxgs61/17/2023 8:51 AM04/04/2023 6:13 PMDate ActivatedDate InactivatedComments12/26/2018 10:53 AM12/26/2018 1:56 PMName RelationshipHealthcare Agent RelationshipCommunicationRexiomara FisherChildPrimary Decision Maker* * * NameRelationshipHealthcare Agent RelationshipCommunicationRexiomara FisherChild Primary Decision Maker* * * Date ActivatedDate JaicstfyvkeOxidxjeq67/17/2023 8:51 AM04/04/2023 6:13 PMDate ActivatedDate InactivatedComments12/26/2018 10:53 AM12/26/2018 1:56 PMName RelationshipHealthcare Agent RelationshipCommunicationRexiomara FisherChildPrimary Decision Maker* * * NameRelationshipHealthcare Agent RelationshipCommunicationRexiomara RolandChild Primary Decision Maker* * * NameRelationshipHealthcare Agent RelationshipCommunicationRebecca FisherChild Primary Decision Maker* * * NameRelationshipHealthcare Agent RelationshipCommunicationRebecca FisherChild Primary Decision Maker* * * NameRelationshipHealthcare Agent RelationshipCommunicationRebecarlet FisherChild Primary Decision Maker* * * Assessments Diagnosis Encounter for care related to vascular access port- Primary Fitting and adjustment of vascular catheter Malignant neoplasm of sigmoid colon (HCC) Malignant neoplasm of sigmoid colon Diagnosis Malignant neoplasm of sigmoid colon (HCC)- Primary Malignant neoplasm of sigmoid colon Encounter for care related to vascular access port Fitting and adjustment of vascular catheter Diagnosis Malignant neoplasm of sigmoid colon (HCC)- Primary Malignant neoplasm of sigmoid colon Encounter for care related to vascular access port Fitting and adjustment of vascular catheter Diagnosis Malignant neoplasm of sigmoid colon (HCC)- Primary Malignant neoplasm of sigmoid colon Encounter for care related to vascular access port Fitting and adjustment of vascular catheter Diagnosis Encounter for care related to vascular access port- Primary Fitting and adjustment of vascular catheter Malignant neoplasm of sigmoid colon (HCC) Malignant neoplasm of sigmoid colon Diagnosis Encounter for care related to vascular access port- Primary Fitting and adjustment of vascular catheter Malignant neoplasm of sigmoid colon (HCC) Malignant neoplasm of sigmoid colon Diagnosis 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 Diagnosis Malignant neoplasm of sigmoid colon (HCC)- Primary Malignant neoplasm of sigmoid colon Encounter for care related to vascular access port Fitting and adjustment of vascular catheter Diagnosis Malignant neoplasm of sigmoid colon (HCC) Malignant neoplasm of sigmoid colon Encounter for care related to vascular access port Fitting and adjustment of vascular catheter Diagnosis Malignant neoplasm of sigmoid colon (HCC) Malignant neoplasm of sigmoid colon Chemotherapy induced neutropenia (HCC) Drug induced neutropenia Diagnosis Encounter for care related to vascular access port Fitting and adjustment of vascular catheter Malignant neoplasm of sigmoid colon (HCC) Malignant neoplasm of sigmoid colon Diagnosis Preop testing Preoperative examination, unspecified Diagnosis History of colon cancer Personal history of malignant neoplasm of large intestine Diagnosis History of colon cancer Personal history of malignant neoplasm of large intestine Diagnosis 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 Malignant neoplasm of sigmoid colon (HCC) Malignant neoplasm of sigmoid colon Iron deficiency anemia due to chronic blood loss Iron deficiency anemia secondary to blood loss (chronic) Diagnosis Malignant neoplasm of sigmoid colon (HCC) Malignant neoplasm of sigmoid colon Diagnosis Malignant neoplasm of sigmoid colon (HCC) Malignant neoplasm of sigmoid colon 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 Diagnosis Malignant neoplasm of sigmoid colon (HCC)- Primary Malignant neoplasm of sigmoid colon Encounter for care related to vascular access port Fitting and adjustment of vascular catheter Diagnosis Encounter for care related to vascular access port- Primary Fitting and adjustment of vascular catheter Malignant neoplasm of sigmoid colon (HCC) Malignant neoplasm of sigmoid colon History of Present Illness * Augusta Butterfield RN - 01/16/2019 10:10 AM EDT Pt arrived for Cycle 2 FOLFOX. All labs resulted and ANC noted to be 1.42. All results reviewed with Mai Spencer RN. Mai consulted with Dr. Ghotra who ordered to proceed with treatment. documented in this encounter* Augutsa Butterfield RN - 02/06/2019 10:00 AM EDT Lab results reviewed with Toya Gallegos RN. Toya states she will consult with Doctor for plan of care. [address] Ghotra to proceed with treatment with a dose reduction of Oxaplatin. Toya Gallegos RN discussed plan of care with patient who verbalizes understanding and denies any questions. documented in this encounter* Augusta Butterfield RN - 03/12/2019 10:05 AM EST Mia reviewed lab results with Dr Singh. Dr stated he would leave the decision to the patient. With the ANC still low, but improved over previous week, he would be fine to treat patient or if she would rather wait until after the holiday he would be fine with that also. Pt states she wants to proceed with chemo. Dr. Singh stated pt to get growth factor on pump off day. No other orders at thistime. documented in this encounter* Josh Farris RN - 01/15/2020 12:30 PM EDT Discharge Criteria Inpatients must meet Criteria 1 through 7. All other patients are either YES or N/A. If a NO is chosen then Anesthesia or Surgeon must be notified. 1. Minimum 30 minutes after last dose of sedative medication, minimum 120 minutes after last dose of reversal agent. Yes 2. Systolic BP stable within 20 mmHg for 30 minutes & systolic BP between 90 & 180 or within 10 mmHg of baseline. Yes 3. Pulse between 60 and 100 or within 10 bpm of baseline. Yes 4. Spontaneous respiratory rate >/= 10 per minute. Yes 5. SaO2 >/= 95 or >/= baseline. Yes 6. Able to cough and swallow or return to baseline function. Yes 7. Alert and oriented or return to baseline mental status. Yes 8. Demonstrates controlled, coordinated movements, ambulates with steady gait, or return to baseline activity function. Yes 9. Minimal or no pain or nausea, or at a level tolerable and acceptable to patient. Yes 10. Takes and retains oral fluids as allowed. Yes 11. Procedural / perioperative site stable. Minimal or no bleeding. N/A 12. If GI endoscopy procedure, minimal or no abdominal distention or passing flatus. Yes 13. Written discharge instructions and emergency telephone number provided. Yes 14. Accompanied by a responsible adult. Yes * Josh Farris RN - 01/15/2020 12:20 PM EDT Discharge instructions given to patient and boyfriend with understanding voiced. No questions askedat this time documented in this encounter* Janey Daugherty RN - 02/19/2020 3:22 PM EST Discharge instructions reviewed with patient and voices understanding. Dressed for home. Padded tegaderm given to cover when showers for first few days. Ambulates off department unaided, belonging sent home with patient. accompanies home. * Salina Devi RN - 02/19/2020 3:09 PM EST Patient returned to pre/post procedure area. Incision to right upper chest is well approximated with derma-tracey. No drainage at current time. Patient denies pain. documented in this encounter* Trish Kenyon RN - 02/20/2019 8:17 AM EST Right chest port accessed without difficulty, but no blood return noted. Pt raises arms, changes positions and several flushes, but no blood return. Lab specimen drawn from right AC vein x1 attempt. documented in this encounter* Salina Devi RN - 12/26/2018 10:42 AM EDT Report given to Royer Daugherty RN. * Salina Devi RN - 12/26/2018 10:40 AM EDT Ativan given 0.5mg PO by daughter, patient's own supply. Dr. Ramirez aware and states that the daughter could do so. * Salina Devi RN - 12/26/2018 10:37 AM EDT Patient reports nausea and weird feeling upon returning to recovery area. Vital signs stable. notified and ordered zofran which was given IV. documented in this encounter* Augusta Butterfield RN - 03/06/2019 9:40 AM EST Pt arrived at 0805 for scheduled treatment of Cycle 5. Labs drawn and results reviewed with Mai Spencer RN. Mai relayed all lab results to Dr. Ghotra and orders were received to hold treatment and return next Tuesday to attempt treatment then. Mai stated Dr will order Neulasta or equivalent to be given on Day 3. Discussed plan of care with pt and her daughter. All agreeable with plan of care.Instructed pt to review her paper on neutropenic precautions and call with any concerns, verbalizedunderstanding. documented in this encounter* Trish Kenyon RN - 01/30/2019 9:30 AM EDT Pt's labs (ANC=0.8) reported to Dr. Luque per Lashaun Spencer RN. Order received to hold treatment today. Potassium level=3.4 today. Pt given oral replacement and instructed to increase her dietary intake. She verbalizes understanding. (states she already has list of foods high in potassium at home.) documented in this encounter Reason for Referral StatusReasonSpecialtyDiagnoses / ProceduresReferred By ContactReferred To ContactClosedRadiology Diagnoses Malignant neoplasm of sigmoid colon (HCC) Chemotherapy induced neutropenia (HCC) Procedures CT ABDOMEN PELVIS W IV CONTRAST Additional Contrast? 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 History of uveitis Pain in right eye Procedures MRI ORBIT WO/W IVCON MRI ORBIT FACE & NECK W/O & W/CONTRAST Duy Jones MD [address] [place] [address] [facility] Referral IDStatusReasonStart DateExpiration DateVisits RequestedVisits [id number] Auto-Generated Referral /[id number] IDStatusReasonStart DateExpiration DateVisits RequestedVisits [id number] Auto-Generated Referral /[id number] / ProceduresReferred By ContactReferred To ContactRadiology Diagnoses Malignant neoplasm of sigmoid colon (HCC) Elevated CEA Procedures CT CHEST ABDOMEN PELVIS W CONTRAST Additional Contrast? Oral Arpita Connolly MD [address] [place] [address] Referral IDStatusasonPiketon DateExpiration DateVisits RequestedVisits [id number]/8/20233/[id number] / Procedures Referred By ContactReferred To [facility] Diagnoses KEREN (obstructive sleep apnea) Procedures Sleep study with PAP titration Shadi Loyd MD [address] [place] [phone] [facility] [address] [place] [address] Referral IDStatUpper Valley Medical Center DateExpiration DateVisits RequestedVisits [id number]/[id number]/[id number] / Procedures Referred By ContactReferred To Contact Diagnoses Paroxysmal atrial fibrillation (HCC) Procedures Extended cardiac holter monitor (3 days-14 day) WY EXTERNAL ECG REC>48HR<7D REVIEW & INTERPRETATION WY EXTERNAL ECG REC>48HR<7D RECORDING WY EXTERNAL ECG REC>7D<15D RECORDING WY EXTERNAL ECG REC>7D<15D REVIEW & INTERPRETATION Shadi Loyd MD [address] [place] [phone] Referral IDStatkoSpherical SystemsPiketon DateExpiration DateVisits RequestedVisits [id number] Review/[id number] / ProceduresReferred By ContactReferred To [facility] Diagnoses AF (paroxysmal atrial fibrillation) (HCC) Procedures CARDIOVASCULAR MEDICINE OP FOLLOW UP APPT ORDER Reji Richardson MD [address] [place] [address] [facility] [place] [address] [place] [address] Referral [facility]Status[facility] DateExpiration DateVisits RequestedVisits [id number] Not Required PCP Requested Referral / Discharge Instructions * Instructions* Josh Farris RN - 01/15/2020 Follow-up with your PCP and see a machine greaser as needed. Current guidelines call for a repeat colonoscopy in 3 years. Call the GI clinic at if you have a problem or question. If a biopsy or polypectomy was done, call for results in two weeks if you have not been contacted by the GI clinic staff. COLONOSCOPY DISCHARGE INSTRUCTIONS: It's normal to have a feeling of fullness or mild cramping in your abdomen afterwards due to air that is put into your bowel during the procedure. Mild activities such as walking will help you pass the air. You may resume your regular diet. You will receive a letter or phone call with your test results in 2 weeks. If you have not receiveda letter or a phone call in 2 weeks please call the office for your results. CALL THE DOCTOR IF YOU HAVE: Chest pain or trouble breathing. Bleeding from your rectum, vomiting or spitting up of blood that is more than a few streaks or red or black stools A fever above 101F or if you have chills Pain that is worse or different than any pain you had before the procedure Nausea or vomiting that lasts for more than 2 hours. If symptoms are to severe call 911 or go to the nearest Emergency Room. documented in this encounter* Instructions* Janey Daugherty RN - 02/19/2020 DISCHARGE INSTRUCTIONS FOR PORTCATH Removal WOUND CARE: Your wound was closed using sutures inside which will dissolve on their own. The incision is held together with surgical glue and covered with a tegaderm and telfa. This clear bandage may be changed after 24 hours and daily until healed. You may shower after 24 hours but keep dressing covered with clear dressing to keep dry. No baths or swimming at this time. Some patients are allergic to the dressing and notice a rash; if this happens notify your physician. After showering pat incision area dry. If steri strips do not fall off after 1 wk please remove them from the incision. DIET: Resume your normal diet. ACTIVITY: You may resume your normal activity after 24 hours. No exercising, lifting heavy objects or strenuous activity for 7 days. PAIN: You may use Tylenol for pain or apply ice to the site on for 20 min each hour x 24 hours. WHEN TO CALL PHYSICIAN: ? Fever greater than 101.5 and chills. ? Swelling or severe pain in arm/leg on side of port. ? Bleeding, redness, drainage or swelling at or around the port. ? Call 911 for any shortness of breath, severe bleeding or chest pain. documented in this encounter* Instructions* Janey Daugherty RN - 12/26/2018 DISCHARGE INSTRUCTIONS FOR PORTCATH What is a port: A portcath is a small tube inserted into a vein in a patient s chest. The small tube extends along the vein to the larger vein just above the heart and is connected to aport that is implanted under the skin in the upper chest. This port is accessed with a special needle when it is used for IV therapy or chemotherapy. When not in use the port is nearly invisible. The port remains in place until therapy is finished which could be for several months. CARE AFTER PORT: The port does not require daily care unless an access needle is in place. The port needs flushed every 4 wks. if not in use. The doctor who ordered the port will give instructions if needed. WOUND CARE: Your wound was closed using sutures inside which will dissolve on their own. The incision is held together with derma tracey and covered with a tegaderm and telfa. This clear bandage may be changed after 24 hours and daily until healed. You may shower but keep dressing covered with clear dressing to keep dry. No baths or swimming until site is healed. Some patients are allergic to the dressing and notice a rash; if this happens notify your physician. DIET: Resume your normal diet. ACTIVITY: You may resume your normal activity after 24 hours. No exercising, lifting heavy objects or strenuous activity for 7 days. PAIN: You may use Tylenol for pain or apply ice to the site on for 20 min each hour x 24 hours. WHEN TO CALL PHYSICIAN: ? Fever greater than 101.5 and chills. ? Swelling or severe pain in arm/leg on side of port. ? Bleeding, redness, drainage or swelling at or around the port. ? Call 911 for any shortness of breath, severe bleeding or chest pain. documented in this encounter Medications Administered Section Medication OrderMAR ActionAction DateDoseRateSite fluorescein-benoxinate 0.25-0.4 % 1 Drop (FLURESS) 1 Drop, BOTH EYES, DIRECTED, Starting on Tue11/11/21 at 1030, Until Tue11/11/21 at 222, Administer for applanation tonometry. In the event of a Fluress shortage, administer 1 drop of [place]-Fluor into both eyes as directed for applanation tonometry., [facility] MED ORDERS Given11/11/2021 10:42 AM EDT1 Drop PHENYLephrine 2.5 % 1 Drop (AK-DILATE, MARY-SYNEPHRINE) 1 Drop, BOTH EYES, DIRECTED, Starting on Tue11/11/21 at 1030, Until Tue11/11/21 at 2229, Administer for dilation PROTECT FROM LIGHT, [facility] MED ORDERS Given11/11/2021 10:42 AM EDT1 Drop proparacaine 0.5 % 1 Drop (ALCAINE) 1 Drop, BOTH EYES, DIRECTED, Starting on Tue11/11/21 at 1030, Until Tue11/11/21 at 2229, Administer for pneumo tonometry, tonopen tonometry, or pachymetry. In the event of a proparacaine shortage,administer 1 drop of tetracaine 0.5% ophthalmic drops into both eyes as directed for pneumo tonometr y, tonopen tonometry, or pachymetry, [facility] MED ORDERS Given11/11/2021 10:42 AM EDT1 Drop tropicamide 1 % 1 Drop (MYDRIACYL) 1 Drop, BOTH EYES, DIRECTED, Starting on Tue11/11/21 at 1030, Until Tue11/11/21 at 2229, Administer for dilation, [facility] MED ORDERS Given11/11/2021 10:42 AM EDT1 DropMedication OrderMAR ActionAction DateDoseRate Site fluorescein-benoxinate 0.25-0.4 % 1 Drop (FLURESS) 1 Drop, BOTH EYES, DIRECTED, Starting on Tue12/29/21 at 1430, Until Tue12/30/21 at 0229, Administer for applanation tonometry. In the event of a Fluress shortage, administer Tia-Fluor 1 drop intoboth eyes as directed for applanation tonometry Given12/29/2021 2:50 PM EDT1 Drop PHENYLephrine 2.5 % 1 Drop (AK-DILATE, MARY-SYNEPHRINE) 1 Drop, BOTH EYES, DIRECTED, Starting on Tue12/29/21 at 1430, Until Tue12/30/21 at 0229, Administer for dilation PROTECT FROM LIGHT Given12/29/2021 2:50 PM EDT1 Drop proparacaine 0.5 % 1 Drop (ALCAINE) 1 Drop, BOTH EYES, DIRECTED, Starting on Tue12/29/21 at 1430, Until Tue12/30/21 at 0229, Administer for pneumo tonometry, tonopen tonometry, or pachymetry. In the event of a proparacaine shortage,administer tetracaine 0.5% ophthalmic drops 1 drop in the left eye as directed for pneumo tonometry, tonopen tonometry, or pachymetry Given12/29/2021 2:50 PM EDT1 Drop tropicamide 1 % 1 Drop (MYDRIACYL) 1 Drop, BOTH EYES, DIRECTED, Starting on Tue12/29/21 at 1430, Until Tue12/30/21 at 0229, Administer for dilation Given12/29/2021 2:50 PM EDT1 DropMedication OrderMAR ActionAction DateDoseRate Site PHENYLephrine 2.5 % 1 Drop (AK-DILATE, MARY-SYNEPHRINE) 1 Drop, BOTH EYES, DIRECTED, Starting on Tue02/17/22 at 1100, Until Tue02/17/22 at 2259, Administer for dilation PROTECT FROM LIGHT Given02/17/2022 11:27 AM EDT1 Drop tropicamide 1 % 1 Drop (MYDRIACYL) 1 Drop, BOTH EYES, DIRECTED, Starting on Tue02/17/22 at 1100, Until Tue02/17/22 at 2259, Administer for dilation Given02/17/2022 11:27 AM EDT1 DropMedication OrderMAR ActionAction DateDoseRate Site PHENYLephrine 2.5 % 1 Drop (AK-DILATE, MARY-SYNEPHRINE) 1 Drop, BOTH EYES, DIRECTED, Starting on Tue07/06/22 at 1030, Until Tue07/06/22 at 2229, Administer for dilation PROTECT FROM LIGHT Given07/06/2022 10:30 AM EDT1 Drop proparacaine 0.5 % 1 Drop (ALCAINE) 1 Drop, BOTH EYES, DIRECTED, Starting on Tue07/06/22 at 1030, Until Tue07/06/22 at 2229, Administer for pneumo tonometry, tonopen tonometry, or pachymetry. In the event of a proparacaine shortage,administer tetracaine 0.5% ophthalmic drops 1 drop in the left eye as directed for pneumo tonometry, tonopen tonometry, or pachymetry Given07/06/2022 10:30 AM EDT1 Drop tropicamide 1 % 1 Drop (MYDRIACYL) 1 Drop, BOTH EYES, DIRECTED, Starting on Tue07/06/22 at 1030, Until Tue07/06/22 at 2229, Administer for dilation Given07/06/2022 10:30 AM EDT1 DropMedication OrderMAR ActionAction DateDoseRate Site PHENYLephrine 2.5 % 1 Drop (AK-DILATE, MARY-SYNEPHRINE) 1 Drop, BOTH EYES, DIRECTED, Starting on Tue03/17/23 at 1100, Until Tue03/17/23 at 2259, Administer for dilation PROTECT FROM LIGHT, [facility] MED ORDERS Given03/17/2023 10:51 AM EST1 Drop proparacaine 0.5 % 1 Drop (ALCAINE) 1 Drop, BOTH EYES, DIRECTED, Starting on Tue03/17/23 at 1100, Until Tue03/17/23 at 2259, Administer for pneumo tonometry, tonopen tonometry, or pachymetry. In the event of a proparacaine shortage, administer tetracaine 0.5% ophthalmic drops 1 drop in both eyes as directed for pneumo tonometry,tonopen tonometry, or pachymetry, [facility] MED ORDERS Given03/17/2023 10:47 AM EST1 Drop tropicamide 1 % 1 Drop (MYDRIACYL) 1 Drop, BOTH EYES, DIRECTED, Starting on Tue03/17/23 at 1100, Until Tue03/17/23 at 2259, Administer for dilation, [facility] MED ORDERS Given03/17/2023 10:51 AM EST1 Drop Summary Purpose Family History No Family History Records Found Relationship Condition Age at Onset Recorded Date/T kenn sister Pancreatic adenoma Unknown HypertensionUnknownfatherMalignant neoplasm of prostateUnknownmotherType 2 diabetes mellitusUnknownbrotherType 2 diabetes mellitusUnknown Chief Complaint and Reason for Visit Chief Complaint Admit Date Right Ureteral Stone December 05, 2024 1 1:47am Additional Source Comments Reason for Visit (unrecogniz ed section and content) StatusReasonSpecialtyDiagnoses / ProceduresReferred By ContactReferred To ContactAuthorized Diagnoses Malignant neoplasm of sigmoid colon (HCC) Encounter for care related to vascular access port Procedures FOLRaymundo Simon MD [address] [address] [facility] [address] [place] [address] StatusReasonSpecialtyDiagnoses / ProceduresReferred By ContactReferred To ContactAuthorized Diagnoses Malignant neoplasm of sigmoid colon (HCC) Encounter for care related to vascular access port Procedures FOLFOX Raymundo Luque MD [address] [place] [address] [facility] [address] [place] [address] StatusReasonSpecialtyDiagnoses / ProceduresReferred By ContactReferred To ContactClosedRadiology Diagnoses Malignant neoplasm of sigmoid colon (HCC) Chemotherapy induced neutropenia (HCC) Procedures CT ABDOMEN PELVIS W IV CONTRAST Additional Contrast? Oral HC CT ABD/PEL W CONT Arpita Connolly MD [address] [place] [address] [facility] [address] [place] [address] StatusReasonSpecialtyDiagnoses / ProceduresReferred By ContactReferred To Contact Diagnoses Hx of colon cancer, stage I HX OF COLON CANCER Procedures WY COLORECTAL SCRN; HI RISK IND WY COLONOSCOPY FLX DX W/COLLJ SPEC WHEN PFRMD COLORECTAL CANCER SCREENING, HIGH RISK Ignacio Crawford MD [address] [place], [place] [id number] [facility] StatusReasonSpecialtyDiagnoses / ProceduresReferred By ContactReferred To ContactOpenRadiology Diagnoses Malignant neoplasm of sigmoid colon (HCC) Procedures IR REMOVE TUNNELED CVAD W SQ PORT/PUMP INSERT Arpita Connolly MD [address] [place] [address] ReasonCommentsChest Painongoing since Tuesday, pressure midsternal, pain in bilat arms and legs, pressure in headSpecialtyDiagnoses / ProceduresReferred By ContactReferred To ContactRadiology Diagnoses Malignant neoplasm of sigmoid colon (HCC) 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 History of uveitis Pain in right eye Procedures MRI ORBIT WO/W IVCON MRI ORBIT FACE & NECK W/O & W/CONTRAST Duy Jones MD [address] [place] [address] [facility] Ref[facility] IDStatus[facility] DateExpiration DateVisits RequestedVisits [id number] Auto-Generated Referral /[id number] Loss Right EyeReasonCommentsKCN follow upReasonCommentsAnterior ischemic optic neuropathyReasonCommentsoptic disc edemaFollow up right eyeEpiretinal Membrane Follow UpRight eyeSpecialtyDiagnoses / ProceduresReferred By ContactReferred To ContactRadiology Diagnoses Malignant neoplasm of sigmoid colon (HCC) Elevated CEA Procedures CT CHEST ABDOMEN PELVIS W CONTRAST Additional Contrast? Oral Arpita Connolly MD [address] [place] [address] Ref[facility]Status[facility] DateExpiration DateVisits RequestedVisits [id number]/20233/[id number]nccvl of right eye2 Month F/UReasonCommentsBack PainLeft lower back pain began Tuesday night in the shower. Pain goes around hip, down thigh to kaur. Noinjury noted. Patient recently admitted for covid.ReasonCommentsContact Lens PurchaseReasonComments KeratoconusContact lens evaluationSpecialtyDiagnoses / ProceduresReferred By ContactReferred To [facility] Diagnoses KEREN (obstructive sleep apnea) Procedures Sleep study with PAP titration Shadi Loyd MD [address] [place] [address] [place] [address] [facility] [address] [place] [address] Ref[facility] IDStaMartin [facility] DateExpiration DateVisits RequestedVisits [id number]/[id number] Lens Follow UpReasonCommentsChorioretinitis Follow UpReasonCommentsFollow UpReasonComments Pre-Op ExamReasonCommentsPost-op (Ophthalmology) Left EyeSpecialtyDiagnoses / ProceduresReferred By ContactReferred To Contact Diagnoses Paroxysmal atrial fibrillation (HCC) Procedures Extended cardiac holter monitor (3 days-14 day) WY EXTERNAL ECG REC>48HR<7D REVIEW & INTERPRETATION WY EXTERNAL ECG REC>48HR<7D RECORDING WY EXTERNAL ECG REC>7D<15D RECORDING WY EXTERNAL ECG REC>7D<15D REVIEW & INTERPRETATION Shadi Loyd MD [address] [place] [address] [place] [address] Referral IDStatUpper [facility] DateExpiration DateVisits RequestedVisits [id number] Review/[id number]-ir (Ophthalmology) Left EyePOM#1 s/p PPV/PFO/MP/EL/FAX/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 Pt complains of headache Scheduled Active and Recently Administ ered Medications (unrecognized section and content) Medication Order/// 0.9 % sodium chloride bolus (COMPLETED) 1,000 mL (10.5 mL/kg), IntraVENous, at 500 mL/hr, Administer over 2 Hours, ONCE, On Tue01/06/21 at 1200, For 1 dose * 1307 (New Bag - Provider: Adelia Root RN) * 1417 (Stopped - Provider: Adelia Root RN) aspirin chewable tablet 324 mg (COMPLETED) 324 mg, Oral, ONCE, On Tue01/06/21 at 1200, For 1 dose * 1205 (Given - Provider: Adelia Root, GILLES) LORazepam (ATIVAN) injection 0.5 mg (COMPLETED) 0.5 mg, IntraVENous, ONCE, On Tue01/06/21 at 1200, For 1 dose * 1205 (Given - Provider: Adelia Root, GILLES) Medication Order04/10/[id number]//[id number]/ ketorolac (TORADOL) injection 30 mg (COMPLETED) 30 mg, IntraVENous, ONCE, 1 dose, On Tue04/12/23 at 1245, Do not administer for more than 5 days. * 1251 (Given - Provider: April Last RN) orphenadrine (NORFLEX) injection 60 mg (COMPLETED) 60 mg, IntraMUSCular, ONCE, 1 dose, On Tue04/12/23 at 1245 * 1251 (Given - Provider: Aprli Last, GILLES) predniSONE (DELTASONE) tablet 60 mg (COMPLETED) 60 mg, Oral, ONCE, 1 dose, On Tue04/12/23 at 1245 * 1252 (Given - Provider: April Last RN) traMADol (ULTRAM) tablet 50 mg (COMPLETED) 50 mg, Oral, ONCE, 1 dose, On Tue04/12/23 at 1245 * 1252 (Given - Provider: April Last RN) Medication Order12/07//// acetaminophen (TYLENOL) tablet 650 mg (COMPLETED) 650 mg, Oral, NOW, 1 dose, On 12/09/24 at 1315, Maximum dose of acetaminophen is 4000 mg from all sources in 24 hours. * 1319 (Given - Provider: Tania Serra RN) potassium bicarb-citric acid (EFFER-K) effervescent tablet 20 mEq (COMPLETED) 20 mEq, Oral, ONCE, 1 dose, On 12/09/24 at 1315, Do not chew or crush. Dissolve flavored tabletscompletely in 3 to 4 ounces of cold water; unflavored tablets may be dissolved in 3 to 4 ounces of cold juice. Patient to sip slowly over a 5 to 10 minute period. May further dilute if GI adverse effects occur. * 1316 (Given - Provider: Tania Serra RN) Care Teams (unrecognized sec tion and content) Team MemberRelationshipSpecialtyStart DateEnd Date Gilma Her MD [address], [place] PCP - General acute hospitally Medicine12/29/17Team MemberRelationshipSpecialtyStart DateEnd Date Gilma Her MD [address] PCP - [facility] Medicine12/29/17Team MemberRelationshipSpecialtyStart DateEnd Date Gilma Her PCP - General09/11/08Team MemberRelationshipSpecialtyStart DateEnd Date Gilma Her PCP - General09/11/08Team MemberRelationshipSpecialtyStart DateEnd Date Gilma Her PCP - General09/11/08Team MemberRelationshipSpecialtyStart DateEnd Date Gilma Her PCP - General09/11/08Team MemberRelationshipSpecialtyStart DateEnd Date Gilma Her PCP - General09/11/08Team MemberRelationshipSpecialtyStart DateEnd Date Asif Marr MD [address] [place] [address] PCP - GeneralGerontology01/08/22Team MemberRelationshipSpecialtyStart DateEnd Date Asif Marr MD [address] [place] [address] PCP - GeneralGerontology01/08/22Team MemberRelationshipSpecialtyStart DateEnd Date Gilma Her MD [address] [place], [place] PCP - GeneralFamily Medicine12/29/17Team MemberRelationshipSpecialtyStart DateEnd Date Gilma Her [address] [place] [address] PCP - GeneralFamily Hmfgnbkb67/22/22Team MemberRelationshipSpecialtyStart Date End Date Gilma Her MD [address] [place], [place] PCP - GeneralFamily Medicine12/29/17Team MemberRelationshipSpecialtyStart DateEnd Date Gilma Her MD PCP - GeneralFamily Stnacoig67/22/22Team MemberRelationshipSpecialtyStart Date End Date Gilma Her MD [address] [place] PCP - GeneralFamily Medicine12/29/17Team MemberRelationshipSpecialtyStart DateEnd Date Gilma Her MD [address] [place] PCP - GeneralFamily Medicine12/29/17Team MemberRelationshipSpecialtyStart DateEnd Date Gilma Her MD [address] [place] PCP - GeneralFamily Medicine18Team MemberRelationshipSpecialtyStart DateEnd Date Gilma Her MD [address] [place] PCP - GeneralFamily Medicine12/29/17Team MemberRelationshipSpecialtyStart DateEnd Date Gilma Her MD [address] [place] PCP - GeneralFamily Medicine18Team MemberRelationshipSpecialtyStart DateEnd Date Gilma Her MD PCP - GeneralFamily Ghggiiqb04/22/22Team MemberRelationshipSpecialtyStart Date End Date Gilma Her MD PCP - GeneralFamily Dlrtaimh47/22/22Team MemberRelationshipSpecialtyStart Date End Date Gilma Her MD [address] [place] PCP - GeneralFamily Medicine12/29/17Team MemberRelationshipSpecialtyStart DateEnd Date Gilma Her MD PCP - GeneralFamily Doilneiv79/22/22Team MemberRelationshipSpecialtyStart Date End Date Gilma Her MD PCP - GeneralFamily Jgfbmtan43/22/22Team MemberRelationshipSpecialtyStart Date End Date Gilma Her MD PCP - GeneralFamily Ywedeixf90/22/22Team MemberRelationshipSpecialtyStart Date End Date Stacia Anderson APRN - RAC[employer]ET [employer]ER [address] [place], [place] [address] [address] PCP - GeneralNurse Practitioner Family06/28/23Team MemberRelationshipSpecialty Start DateEnd Date Gilma Her MD PCP - GeneralFamily Vkwmijpo54/22/22Team MemberRelationshipSpecialtyStart Date End Date Stacia Anderson APRN.[employer]ET [employer]KER [address] [place] [address] [place] [address] PCP - GeneralFamily Medicine10/26/23Team MemberRelationshipSpecialtyStart DateEnd Date Stacia Anderson, GENERAL PURCHASING AGENT.[employer]ACQUET MAKER [address] [place] [address] PCP - GeneralFamily Medicine10/26/23Team MemberRelationshipSpecialtyStart DateEnd Date Stacia Anderson, GENERAL PURCHASING AGENT.[employer]ACQUET MAKER [address] [place] [address] PCP - GeneralFamily Medicine10/26/23Team MemberRelationshipSpecialtyStart DateEnd Date Stacia Anderson, GENERAL PURCHASING AGENT.RACQUET MAKER [address] [facility] [place] [address] PCP - GeneralFamily Medicine10/26/23 Shadi Loyd MD [address] [place] [address] [place] [address] ReferringInternal Medicine11/09/23Team MemberRelationshipSpecialtyStart DateEnd Date Stacia Anderson, GENERAL PURCHASING AGENT.RACQUET MAKER [address] [facility] [place] [address] PCP - GeneralFamily Medicine10/26/23 Shadi Loyd MD [address] [place] [address] [place] [id number] ReferringInternal Medicine11/09/23Team MemberRelationshipSpecialtyStart DateEnd Date Stacia Anderson, GENERAL PURCHASING AGENT - [employer] [address] [place] [address] PCP - GeneralNurse Practitioner Family06/28/23Team MemberRelationshipSpecialty Start DateEnd Date Stacia Anderson, GENERAL PURCHASING AGENT.RACQUET MAKER [address] [place] [address] PCP - GeneralFamily Medicine10/26/23 Shadi Loyd MD [address] [place] [address] [place] [address] ReferringInternal Medicine11/09/23Team MemberRelationshipSpecialtyStart DateEnd Date Stacia Anderson, GENERAL PURCHASING AGENT.RACQUET MAKER [address] [place] [address] [place] [address] PCP - GeneralFamily Medicine10/26/23 Shadi Loyd MD [address] [place] [address] [place] [address] ReferringInternal Medicine11/09/23Te MemberRelationshipSpecialtyStart DateEnd Date Stacia Anderson, GENERAL PURCHASING AGENT.RACQUET MAKER [address] [place] [address] [place] [address] PCP - GeneralFamily Medicine10/26/23 Shadi Loyd MD [address] [place] [address] [place] [address] ReferringInternal Medicine11/09/23 Reji Richardson MD [address] [place] [address] Primary Staff PhysicianCardiology01/02/24Team MemberRelationshipSpecialtyStart DateEnd Date Stacia Anderson, GENERAL PURCHASING AGENT.RACQUET MAKER [address] [place] [address] PCP - GeneralFamily Medicine10/26/23 Shadi Loyd MD [address] [place] [address] [place] [address] ReferringInternal Medicine11/09/23 Reji Richardson MD [address] [place] [address] Primary Staff PhysicianCardiology01/02/24Team MemberRelationshipSpecialtyStart DateEnd Date Stacia Anderson, GENERAL PURCHASING AGENT - [employer]ET MAKER [address] [facility] [place] [address] PCP - GeneralNcancer [facility] Practitioner Family06/28/23Team MemberRelationshipSpecialty Start DateEnd Date Stacia Anderson, GENERAL PURCHASING AGENT.RACQUET MAKER [address] [place] [address] [place] [address] PCP - GeneralFamily Medicine10/26/23 Shadi Loyd MD [address] [place] [address] [place] [address] ReferringInternal Medicine11/09/23 Reji Richardson MD [address] [place] [address] Primary Staff PhysicianCardiology01/02/24Team MemberRelationshipSpecialtyStart DateEnd Date Stacia Anderson, GENERAL PURCHASING AGENT.RACQUET MAKER [address] [place] [address] [place] [address] PCP - GeneralFamily Medicine10/26/23 Shadi Loyd MD [address] [place] [address] [place] [address] ReferringInternal Medicine11/09/23 Reji Richardson MD [address] [place] [address] Primary Staff PhysicianCardiology01/02/24Team MemberRelationshipSpecialtyStart DateEnd Date Stacia Anderson APRN.RACQUET MAKER [address] [place] [address] [address] [place] [place] [id number] PCP - GeneralFamoly Medicine10/26/23 Shadi Loyd MD [address] [place] [address] [place] [address] ReferringJackson [facility] Medicine11/09/23 Reji Richardson MD [address] [place] [address] Primary Staff PhysicianCardiology01/02/24Team MemberRelationshipSpecialtyStart DateEnd Date Stacia Anderson, GENERAL PURCHASING AGENT - RAC[employer]ET MAKER [address] [place] [address] PCP - GeneralNurse Practitioner, [facility]06/28/23Team MemberRelationshipSpecialty Start DateEnd Date Stacia Anderson GENERAL PURCHASING AGENT - [employer]ET [employer]KER [address] [place] [phone] PCP - GeneralNurse Practitioner, [facility]06/28/23Team MemberRelationshipSpecialty Start DateEnd Date Stacia Anderson GENERAL PURCHASING AGENT - [employer] [address] [place] [phone] PCP - GeneralNurse Practitioner, [facility]06/28/23Team MemberRelationshipSpecialty Start DateEnd Date Stacia Anderson GENERAL PURCHASING AGENT - [employer]ER [address] [place] [phone] PCP - GeneralNurse Practitioner, [facility]06/28/23Team MemberRelationshipSpecialty Start DateEnd Date Stacia Anderson APRN - R[employer]ET MAKER [address] [place] [phone] PCP - GeneralNurse Practitioner, [facility]06/28/23Team MemberRelationshipSpecialty Start DateEnd Date Stacia Anderson GENERAL PURCHASING AGENT.RACQUET MAKER [address] [place] [id number] [place] [address] [facility] - [facility]23 Shadi Loyd MD [address] [place] [address] [place] [id number] ReferringInternal Medicine11/09/23 Reji Richardson MD [address] [id number] Primary Staff PhysicianCardiology01/02/24 Team Status: Active Member Role Status Dates Stacia Anderson NP-C Primary Care Provider Active Team Status: Inactive Member Role Status Dates Maite Moran MD Attending Provider Active Start: December 05, 2024 End: December 05, 2024Tatrae Anderson NP-CPrimary Care ProviderActiveStart: December 05, 2024 End: December 05, 2024Team MemberRelationshipSpecialtyStart DateEnd Date Stacia Anderson APRN - RACQUET MAKER [address] [id number] PCP - GeneralNurse Practitioner, [facility]06/28/23Team MemberRelationshipSpecialty Start DateEnd Date Stacia Anderson APRN - RACQUET MAKER [address] [phone] PCP - GeneralNurse Practitioner, Family06/28/23 Source Comments (unrecognize d section and content) In the event this informatio n is protected by the Federal Confidentiality of Alcohol and Drug Abuse Patient Records regulations: The Federal rules restrict any use of the information to criminally investigate or prosecute any alcohol or drug abuse patient.[facility] HospitalIn the event this information is protected by the Federal Confidentiality of Alcohol and Drug Abuse Patient Records regulations: The Federal rules restrict any use of the information to criminally investigate or prosecute any alcohol or drug abuse patient.[facility] HospitalIn the event this information is protected by the Federal Confidentiality of Alcohol and Drug Abuse Patient Records regulations: The Federal rules restrict any use of the information to criminally investigate or prosecute any alcohol or drug abuse patient.[facility] HospitalIn the event this information is protected by the Federal Confidentiality of Alcohol and Drug Abuse Patient Records regulations: The Federal rules restrict any use of the information to criminally investigate or prosecute any alcohol or drug abuse patient.[facility] HospitalIn the event this information is protected by the Federal Confidentiality of Alcohol and Drug Abuse Patient Records regulations: The Federal rules restrict any use of the information to criminally investigate or prosecute any alcohol or drug abuse patient.[facility] HospitalIn the event this information is protected by the Federal Confidentiality of Alcohol and Drug Abuse Patient Records regulations: The Federal rules restrict any use of the information to criminally investigate or prosecute any alcohol or drug abuse patient.[facility] HospitalIn the event this information is protected by the Federal Confidentiality of Alcohol and Drug Abuse Patient Records regulations: The Federal rules restrict any use of the information to criminally investigate or prosecute any alcohol or drug abuse patient.[facility] HospitalIn the event this information is protected by the Federal Confidentiality of Alcohol and Drug Abuse Patient Records regulations: The Federal rules restrict any use of the information to criminally investigate or prosecute any alcohol or drug abuse patient.[facility] HospitalIn the event this information is protected by the Federal Confidentiality of Alcohol and Drug Abuse Patient Records regulations: The Federal rules restrict any use of the information to criminally investigate or prosecute any alcohol or drug abuse patient.[facility] HospitalIn the event this information is protected by the Federal Confidentiality of Alcohol and Drug Abuse Patient Records regulations: The Federal rules restrict any use of the information to criminally investigate or prosecute any alcohol or drug abuse patient.[facility] HospitalIn the event this information is protected by the Federal Confidentiality of Alcohol and Drug Abuse Patient Records regulations: The Federal rules restrict any use of the information to criminally investigate or prosecute any alcohol or drug abuse patient.[facility] HospitalIn the event this information is protected by the Federal Confidentiality of Alcohol and Drug Abuse Patient Records regulations: The Federal rules restrict any use of the information to criminally investigate or prosecute any alcohol or drug abuse patient.[facility] HospitalIn the event this information is protected by the Federal Confidentiality of Alcohol and Drug Abuse Patient Records regulations: The Federal rules restrict any use of the information to criminally investigate or prosecute any alcohol or drug abuse patient.[facility] HospitalIn the event this information is protected by the Federal Confidentiality of Alcohol and Drug Abuse Patient Records regulations: The Federal rules restrict any use of the information to criminally investigate or prosecute any alcohol or drug abuse patient.[facility] HospitalIn the event this information is protected by the Federal Confidentiality of Alcohol and Drug Abuse Patient Records regulations: The Federal rules restrict any use of the information to criminally investigate or prosecute any alcohol or drug abuse patient.[facility] HospitalIn the event this information is protected by the Federal Confidentiality of Alcohol and Drug Abuse Patient Records regulations: The Federal rules restrict any use of the information to criminally investigate or prosecute any alcohol or drug abuse patient.[facility] HospitalIn the event this information is protected by the Federal Confidentiality of Alcohol and Drug Abuse Patient Records regulations: The Federal rules restrict any use of the information to criminally investigate or prosecute any alcohol or drug abuse patient.[facility] HospitalIn the event this information is protected by the Federal Confidentiality of Alcohol and Drug Abuse Patient Records regulations: The Federal rules restrict any use of the information to criminally investigate or prosecute any alcohol or drug abuse patient.[facility] HospitalIn the event this information is protected by the Federal Confidentiality of Alcohol and Drug Abuse Patient Records regulations: The Federal rules restrict any use of the information to criminally investigate or prosecute any alcohol or drug abuse patient.[facility] HospitalIn the event this information is protected by the Federal Confidentiality of Alcohol and Drug Abuse Patient Records regulations: The Federal rules restrict any use of the information to criminally investigate or prosecute any alcohol or drug abuse patient.[facility] HospitalIn the event this information is protected by the Federal Confidentiality of Alcohol and Drug Abuse Patient Records regulations: The Federal rules restrict any use of the information to criminally investigate or prosecute any alcohol or drug abuse patient.[facility] HospitalIn the event this information is protected by the Federal Confidentiality of Alcohol and Drug Abuse Patient Records regulations: The Federal rules restrict any use of the information to criminally investigate or prosecute any alcohol or drug abuse patient.[facility] HospitalIn the event this information is protected by the Federal Confidentiality of Alcohol and Drug Abuse Patient Records regulations: The Federal rules restrict any use of the information to criminally investigate or prosecute any alcohol or drug abuse patient.[facility] HospitalIn the event this information is protected by the Federal Confidentiality of Alcohol and Drug Abuse Patient Records regulations: The Federal rules restrict any use of the information to criminally investigate or prosecute any alcohol or drug abuse patient.[facility] HospitalIn the event this information is protected by the Federal Confidentiality of Alcohol and Drug Abuse Patient Records regulations: The Federal rules restrict any use of the information to criminally investigate or prosecute any alcohol or drug abuse patient.[facility] HospitalIn the event this information is protected by the Federal Confidentiality of Alcohol and Drug Abuse Patient Records regulations: The Federal rules restrict any use of the information to criminally investigate or prosecute any alcohol or drug abuse patient.[facility] HospitalIn the event this information is protected by the Federal Confidentiality of Alcohol and Drug Abuse Patient Records regulations: The Federal rules restrict any use of the information to criminally investigate or prosecute any alcohol or drug abuse patient.[facility] HospitalIn the event this information is protected by the Federal Confidentiality of Alcohol and Drug Abuse Patient Records regulations: The Federal rules restrict any use of the information to criminally investigate or prosecute any alcohol or drug abuse patient.[facility] HospitalIn the event this information is protected by the Federal Confidentiality of Alcohol and Drug Abuse Patient Records regulations: The Federal rules restrict any use of the information to criminally investigate or prosecute any alcohol or drug abuse patient.[facility] HospitalIn the event this information is protected by the Federal Confidentiality of Alcohol and Drug Abuse Patient Records regulations: The Federal rules restrict any use of the information to criminally investigate or prosecute any alcohol or drug abuse patient.[facility] INFORMATION SOURCE (unrecogn ized section and content) DATE CREATED AUTHOR 01/17/2022 [facility] DATE CREATED AUTHOR 'S FRANSICO GARG 03/19/2022 [facility] DATE CREATED AUTHOR AUTHOR'S ORGANIZ ATION 06/13/2024 [facility] DATE CREATED AUTHOR AUTHOR'S ORGANIZ ATION 06/15/2024 [facility] DATE CREATED AUTHOR AUTHOR'S ORGANIZ ATION 10/29/2024 [facility] DATE CREATED AUTHOR AUTHOR'S ORGANIZ ATION 11/10/2024 [facility] DATE CREATED AUTHOR AUTHOR'S ORGANIZ ATION 11/15/2024 [facility] DATE CREATED AUTHOR AUTHOR'S ORGANIZ ATION 12/01/2024 [facility] DATE CREATED AUTHOR AUTHOR'S ORGANIZ ATION 12/06/2024 [facility] DATE CREATED AUTHOR AUTHOR'S ORGANIZ ATION 01/04/2025 [facility] DATE CREATED AUTHOR AUTHOR'S ORGANIZ ATION 01/09/2025 [facility] DATE CREATED AUTHOR AUTHOR'S ORGANIZ ATION 01/19/2025 [facility] DATE CREATED AUTHOR AUTHOR'S ORGANIZ ATION 01/22/2025 [facility] Ordered Prescriptions (unrec ognized section and content) PrescriptionSigDispensedRefillsStart DateEnd Date traMADol (ULTRAM) 50 MG tablet Indications:Acute left-sided low back pain with left-sided sciaticaTake 1 tablet by mouth every 6 hours as needed for Pain for up to 3 days. Intended supply: 3 days. Take lowest dose possible to manage pain Max Daily Amount: 200 mg 12 tablet / methylPREDNISolone (MEDROL, ALDO,) 4 MG tablet Take by mouth. 1 kit /04/2023 FOR RECORDS PERTAINING TO PATIENTS WHO ARE OR HAVE BEEN ENROLLED IN A CHEMICAL DEPENDENCY/SUBSTANCEABUSE PROGRAM, SOME INFORMATION MAY BE OMITTED. This clinical summary was aggregated from multiple sources. Caution should be exercised in using it in the provision of clinical care. This summary normalizes information from multiple sources, and as a consequence, information in this document may materially change the coding, format and clinical context of patient data. In addition, data may be omitted in some cases. CLINICAL DECISIONS SHOULD BE BASED ON THE PRIMARY CLINICAL RECORDS. [employer] [facility]. provides no warranty or guarantee of the accuracy or completeness of information in this document.
== END 2025-03-11 14:32 | disposition home or self-care (01) ==
LOC: MAMMO 14:31
DX: E28.39 Other primary ovarian failure (principal); Z12.31 Encounter for screening mammogram for malignant neoplasm of breast; Z80.42 Family history of malignant neoplasm of prostate; Z80.8 Family history of malignant neoplasm of other organs or systems; M85.88 Other specified disorders of bone density and structure, other site
CPT/HCPCS: 77063; 77067; 77080